=== PATIENT | female | born 1935 | race Caucasian/White ===

== ENCOUNTER → 2018-03-23 10:52 | Outpatient (CLI) | payer MEDICARE, SELFPAY ==
--- NOTE | 2018-03-23 11:00 | CDU_ITS ---
Reason For Study: bruit Rt. Velocities/BP Lt. Velocities/BP Prox CCA 69.2/11.1 cm/sec. Prox CCA 51.6/12.3 cm/sec. Mid CCA 58.6/10.6 cm/sec. Mid CCA 76.8/14.1 cm/sec. Dist CCA 62.1/12.9 cm/sec. Dist CCA 79.2/12.9 cm/sec. Prox ICA 53.4/11.7 cm/sec. Prox ICA 119/25.1 cm/sec. Mid ICA 60.4/14.7 cm/sec. Mid ICA 140/27.5 cm/sec. Dist ICA 92.6/21.7 cm/sec. Dist ICA 112/27.5 cm/sec. Rt. ICA/CCA = 1.6. Lt. ICA/CCA = 1.8. Prox ECA 158/16.2 cm/sec. Prox ECA 149/8.64 cm/sec. Rt. Vert. 54.5/12.3 cm/sec. Lt. Vert. 71.5/14.7 cm/sec. Right Extracranial There is heterogeneous, irregular atherosclerotic plaque noted in the right common carotid artery. There is heterogeneous, irregular atherosclerotic plaque noted in the right internal carotid artery. There is heterogeneous, irregular atherosclerotic plaque noted in the right external carotid artery. Antegrade flow is noted in the right vertebral artery. Left Extracranial There is heterogeneous, irregular atherosclerotic plaque noted in the left common carotid artery. There is heterogeneous, irregular atherosclerotic plaque noted in the left internal carotid artery. There is heterogeneous, irregular atherosclerotic plaque noted in the left external carotid artery. Antegrade flow is noted in the left vertebral artery. Procedure Carotid Duplex 22263. The exam was diagnostic. Exam performed in department. Interpretation Summary Mild (<50%) stenosis right extracranial internal carotid. Moderate (50-69%) stenosis left extracranial internal carotid. Flow within the vertebral arteries is antegrade bilaterally. Ordering Physician: Jose Luis Marie Performed By: Marvin Brannon RVT
== END ==
PROVIDERS: Family Provider Internal Medicine; PCP Internal Medicine; Visit Provider Surgery Vascular Surgery
DX: I70.213 Atherosclerosis of native arteries of extremities with intermittent claudication, bilateral legs (principal); I25.10 Atherosclerotic heart disease of native coronary artery without angina pectoris; E78.00 Pure hypercholesterolemia, unspecified; I10 Essential (primary) hypertension; R09.89 Other specified symptoms and signs involving the circulatory and respiratory systems
CPT/HCPCS: 93880

== ENCOUNTER → 2018-03-25 12:59 | Outpatient (CLI) | payer MEDICARE, SELFPAY ==
--- NOTE | 2018-04-01 11:20 | LEAS ---
Arterial Study - Arterial Study Arterial Study: Date of scan 03/25/[address] Marie History: Patient with bilateral lower extremity pain with walking and known hypertension hyperlipidemia coronary artery disease former tobacco smoker. Interpretation: Right lower extremity with adequate waveforms throughout the thigh calf ankle slightly peaked waveforms noted but waveform noted out through the digit segmental pressures maintained at the low thigh 0.98 decrease of the 0.699 at the ankle 0.56 and 0.58 in the posterior tib and dorsalis pedis. Both showing monophasic flow as well. Digit brachial index 0.21 Left lower extremity adequate waveform again from the low thigh down to the calf ankle in adequate waveform out through the digit. Waveforms are slightly peaked. Lower thigh pressure at 0.55 0.51 posterior tib and dorsalis pedis again with monophasic flow and an TULIO 0.570.59. Digital brachial index 0.20. Impression: 1. Moderate arterial occlusive disease right lower extremity with an TULIO 0.58 suggestive of femoral-popliteal occlusive disease. 2. Left lower extremity with moderate arterial occlusive disease with an TULIO 0.59 suggestive of either iliofemoral occlusive disease. 3. Bilateral small vessel disease with digit brachial index 0.21 and 0.20. Although the waveforms appear better than would have anticipated for this number.
== END ==
PROVIDERS: Family Provider Internal Medicine; PCP Internal Medicine; Visit Provider Surgery Vascular Surgery
DX: I70.213 Atherosclerosis of native arteries of extremities with intermittent claudication, bilateral legs (principal); I25.10 Atherosclerotic heart disease of native coronary artery without angina pectoris; I10 Essential (primary) hypertension; E11.9 Type 2 diabetes mellitus without complications; E78.00 Pure hypercholesterolemia, unspecified; R09.89 Other specified symptoms and signs involving the circulatory and respiratory systems; Z87.891 Personal history of nicotine dependence
CPT/HCPCS: 93923

== ENCOUNTER 2018-10-05 16:24 | Emergency (ER) | payer MEDICARE, SELFPAY ==
[2018-10-05 16:25] VITALS: BP 156/82; PULSE 85; RESP 16; TEMP 36.5; O2SAT 94; BMI 27.0
[2018-10-05 18:55] LABS: Absolute Lymphocyte Count 1.02 X10^3/ul (0.83-4.51); Absolute Neutrophil Count 7.5 X10^3/uL (2.0-7.7); Basophil# 0.02 X10^3/uL; Basophil% 0.2 % (0-1); Eosinophil# 0.03 X10^3/uL; Eosinophils% 0.3 % (0-5); Hemoglobin 11.8 g/dl (12.0-15.0); Lymphocyte # 1.02 X10^3/ul (4.0); Lymphocyte % 10.9 % (19-41); Mean Corp Hgb Conc 32.8 g/gl (32-36); Mean Corpuscular Volume 82.4 fL (81-99); Mean Platelet Vol. 9.2 fl (6.2-12.0); Monocyte# 0.82 X10^3/uL; Monocyte% 8.8 % (0-10); Neutrophil # 7.45 X10^3/uL (2.7-7.7); Neutrophil % 79.5 % (47-70); POSITIVE COUNT NO; POSITIVE DIFFERENTIAL NO; POSITIVE MORPHOLOGY NO; Platelet Count 261 K/mm3 (150-450); RBC Distribution Width CV 13.7 % (11.6-14.6); RBC Distribution Width SD 41.7 fl (35.1-43.9); Red Blood Count 4.37 M/mm3 (4.2-5.4); White Blood Count 9.4 K/mm3 (4.4-11.0)
[2018-10-05 18:59] LABS: International Normalized Ratio 0.9; Prothrombin Time (Protime)PT. 12.2 SECONDS (11.7-14.9)
[2018-10-05 19:10] LABS: Anion Gap 11 (5-15); BUN 11 mg/dL (7-18); BUN/Creat Ratio 12.5 RATIO (10-20); Chloride 92 mmol/L (98-107); Creatinine, Serum 0.88 mg/dL (0.55-1.02); EST Glomerular Filtration Rate 65 mL/min (>60); Est Glom Filt Rate - Afr Amer 79 mL/min (>60); Estimated Creatinine Clearance 47.29 ml/min; Glucose 97 mg/dL (74-106); Potassium 4.1 mmol/L (3.5-5.1); Sodium Level 125 mmol/L (136-145)
--- NOTE | 2018-10-05 19:34 | EKG12_ITS ---
Test Reason : NAUSEA/VOMITING Blood Pressure : / mmHG Vent. Rate : 087 BPM Atrial Rate : 087 BPM P-R Int : 136 ms QRS Dur : 070 ms QT Int : 366 ms P-R-T Axes : 056 039 064 degrees QTc Int : 440 ms Sinus rhythm with occasional Premature ventricular complexes Low voltage QRS (limb leads) Confirmed by SUJEY MOSQUEDA, LORENZO ([id number]), content editor LANDEN RYDER ([id number]) on 10/08/2018 1:40:29 PM Referred By: ROYA Confirmed By:LORENZO RM MD
--- NOTE | 2018-10-05 19:37 | ED.DCSUM_ITS ---
- ER Visit Summary Date of Service: 10/05/18 Chief Complaint: Nausea vomiting and diarrhea History of Present Illness: The patient is a 82 F history of CAD, [place], CHF, COPD, noncemented diabetes, renal insufficiency and cardiac stents. Patient states that she has had nausea vomiting and diarrhea since Friday. No fever. Just some mild cramping of her legs and abdomen. No dysuria. Decreased urinary output. Was seen in urgent care earlier today and then sent over to the ER. She also states she has had some intermittent chest pain last night but took nitro and it resolved. Currently no chest pain. Physical Examination: Vital signs are stable afebrile. Patient's no distress. HEENT exam really no significant dryness of her mucous membranes. Neck nontender. No JVD. No lymphadenopathy. Lungs clear to auscultation bilaterally. Heart regular rate and rhythm no murmur. Chest wall nontender. Abdomen soft. Nondistended. Normal bowel sounds no peritoneal signs. No hernias or masses. No signs of obstruction. Patient moving all 4 extremities. Calves are nontender without edema. Neurologically she is awake and alert without focal motor deficits. Test Results: CBC shows a white count of 9. Hemoglobin 11.8.. Which is her baseline. Electrolytes show sodium of 125. Gap of 11. Normal BUN and creatinine. Troponin is normal. Troponin is normal. Chest x-ray is no acute process. EKG sinus rhythm rate 87 with PVCs unchanged from prior. Urinalysis shows 10-25 white cells but otherwise no bacteria no nitrates. Culture was sent. Emergency Department Course and Treatment: Patient treated with 1 L normal saline. IV Zofran. At both 2130 and 2315. She has been able to hold down p.o. fluids. She is feeling better. She is comfortable being discharged home., Patient knows to return if worse. Treatment Plan: Plenty of fluids and rest. Increase diet slowly. Presents with the use of Zofran for nausea. Return if worse. Follow-up with your primary care physician for reevaluation. Disposition: Discharge Impression: Acute nausea, vomiting and diarrhea second viral gastroenteritis Mild hyponatremia. Chest pain uncertain etiology resolved This note was generated with [employer] dictation software. It may contain incorrect words, spelling, and punctuation that were not noted in review of the chart prior to signing ED Disposition - Plan for ED Patient: Chief Complaint: Nausea/Vomiting Referrals: Ady Ignacio MD [Primary Care Provider] -
--- NOTE | 2018-10-05 19:40 | RAD_ITS ---
STUDY: X-RAY CHEST REASON FOR EXAM: Female, 82 years old. UTI TECHNIQUE: Single frontal view COMPARISON: July 08, 2017 FINDINGS: The lungs are expanded. Minimal left basilar atelectasis. Cardiomegaly. Normal mediastinum and meka. Normal visualized pulmonary arteries. Calcified aortic arch and descending thoracic aorta. Normal visualized thoracic spine. Normal visualized ribs, clavicles, and shoulders. There is no demonstrated abnormality of the visualized soft tissue structures of the upper abdomen. RAD/Chest 1 View (Portable) IMPRESSION: Minimal left basilar atelectasis. Mild cardiomegaly. Electronically Signed: Antonio Millan DO at 20:08 EST Tel [phone], Service support ,
[2018-10-05] MEDS: 0.9% Normal Saline 1,000 ML 999 ML IV (19:43)
[2018-10-05 19:44] VITALS: BP 128/67; PULSE 71; RESP 15; O2SAT 95
[2018-10-05 21:20] LABS: Bacteria 0 SEEN /hpf (None Seen); Mucous, Urine 0 SEEN /hpf (<or=2+)
[2018-10-05 21:47] LABS: Color, Urine Straw (Yellow); Glucose, Dipstick Normal (Normal); Ketone-Dipstick 15 mg/dl (Negative); Leukocyte Esterase-Dipstick 500 /ul (Negative); Nitrite-Dipstick Negative (Negative); Occult Blood-Urine 10 /ul (Negative); Protein-Dipstick Negative (Negative); Specific Gravity, Urine 1.005 (1.002-1.030); Urine Bilirubin Dipstick Negative (Negative); Urine Clarity Cloudy (Clear); Urine Urobilinogen Normal (Normal); Urine pH 6.5 (5.0 - 8.0)
[2018-10-05 21:48] LABS: Red Blood Cells-Urine 0-5 SEEN /hpf (0-5); Squamous Epithelial Cells - UA 0-5 SEEN /hpf (5-10); White Blood Cells 10-25 SEEN /hpf (0-5)
--- NOTE | 2018-10-05 23:21 | ED.DEP ---
ED Disposition - Plan for ED Patient: Disposition: Home or Assisted Living Chief Complaint: Nausea/Vomiting Instructions: ED Gastroenteritis Viral Prescriptions: Ondansetron [Zofran Odt] 4 mg PO 4X/DAY PRN PRN #7 tab.rapdis PRN Reason: Nausea Referrals: Ady Ignacio MD [Primary Care Provider] - 3-5 Days Additional Instructions: Russell diet. Increase slowly as tolerated.. Take Zofran as needed for nausea Follow-up orthostatic with your primary care physician to be reevaluated later this week. Return if feeling worse.
[2018-10-05] MEDS: Ondansetron ODT 4 MG Tablet PO (23:44)
[2018-10-05 23:45] VITALS: BP 134/68; PULSE 59; RESP 16; O2SAT 95
== END 2018-10-05 23:46 | disposition home or self-care (01) ==
PROVIDERS: Emergency Provider Emergency Medicine; Family Provider Internal Medicine; PCP Internal Medicine
DX: A08.4 Viral intestinal infection, unspecified (principal); R11.2 Nausea with vomiting, unspecified; R19.7 Diarrhea, unspecified; E87.1 Hypo-osmolality and hyponatremia; R07.9 Chest pain, unspecified; I49.3 Ventricular premature depolarization; I25.10 Atherosclerotic heart disease of native coronary artery without angina pectoris; I25.2 Old myocardial infarction; I11.0 Hypertensive heart disease with heart failure; I50.9 Heart failure, unspecified; J44.9 Chronic obstructive pulmonary disease, unspecified; E11.9 Type 2 diabetes mellitus without complications; N28.9 Disorder of kidney and ureter, unspecified; Z95.5 Presence of coronary angioplasty implant and graft; Z90.49 Acquired absence of other specified parts of digestive tract; Z79.84 Long term (current) use of oral hypoglycemic drugs; Z79.02 Long term (current) use of antithrombotics/antiplatelets; Z79.899 Other long term (current) drug therapy
CPT/HCPCS: 71045; 80048; 81001; 84484; 85025; 85610; 87086; 87088; 87186; 93005; 96360; 96361; 99284; J7030

== ENCOUNTER 2019-02-04 17:39 | Emergency (ER) | payer MEDICARE, SELFPAY ==
[2019-02-04 17:41] VITALS: BP 145/68; PULSE 94; RESP 17; TEMP 36.7; O2SAT 92; BMI 26.1
--- NOTE | 2019-02-04 17:59 | CT_ITS ---
STUDY: CT CERVICAL SPINE WITHOUT CONTRAST REASON FOR EXAM: Female, 83 years old. Neck pain after falling. RADIATION DOSAGE (If Supplied By Facility): CTDIvol = ( 17.60 ) mGy, DLP = ( 331.27 ) mGycm TECHNIQUE: High resolution transaxial imaging was performed without contrast material. Sagittal and coronal images were reconstructed. Individualized dose optimization techniques were used for this CT. COMPARISON: Prior cervical CT exam of July 08, 2017 FINDINGS: Normal craniovertebral junction. Normal C1, C2 and odontoid alignment. Degenerative arthrosis of the atlantoaxial articulation. Negative for odontoid fracture. Incomplete ossification of the posterior arch of C1, normal variation. There is straightening of the normal cervical lordosis. Negative for acute fracture of the cervical spine. C2-3: Degenerative disc and joint changes without central stenosis or substantial foraminal narrowing. C3-4: Degenerative disc narrowing, uncovertebral arthrosis and advanced facet arthrosis on the left. Negative for central stenosis. Severe foraminal narrowing on the left C4-5: Degenerative disc narrowing, uncovertebral arthrosis and lateral facet arthrosis severe on the left. Negative for central stenosis. Bilateral mild to moderate foraminal narrowing. C5-6: Advanced disc narrowing and uncovertebral arthrosis. Bilateral mild facet arthrosis. Negative for central stenosis. Mild foraminal narrowing on the left moderate foraminal narrowing on the right. C6-7: Advanced disc narrowing and uncovertebral arthrosis. Negative for central stenosis. Moderate foraminal narrowing on the right. C7-T1: Mild disc narrowing. Slight degenerative anterolisthesis with facet arthrosis primarily on the right. Negative for central stenosis. Mild foraminal narrowing on the right. Atherosclerotic vascular calcifications. CT/Spine Cervical without Contras IMPRESSION: Straightening of the cervical spine with a minimal degenerative anterolisthesis of C7. Otherwise normal alignment of the cervical spine without fracture. Degenerative disc and joint changes as stated above. Electronically Signed: Valencia Moyer MD at 18:59 EDT , Service support ,
--- NOTE | 2019-02-04 17:59 | CT_ITS ---
STUDY: CT BRAIN WITHOUT CONTRAST REASON FOR EXAM: Female, 83 years old. Fall. RADIATION DOSAGE (If Supplied By Facility): CTDIvol = ( 44.99 ) mGy, DLP = ( 762.36 ) mGycm TECHNIQUE: Transaxial CT imaging of the brain was performed without administration of intravenous contrast material. Individualized dose optimization techniques were used for this CT. COMPARISON: 07/08/2017 FINDINGS: There is no definite acute abnormality. There is diffuse mild symmetric atrophy. There is atrophy of the posterior fossa structures. There is diffuse small vessel ischemic disease of the white matter. There are stable bilateral dystrophic calcifications of the basal ganglia. There is no definite acute infarct. There is no bleed. There is no gross mass, mass effect, or midline shift. There is no acute abnormality of the skull. No fractures. Grossly normal orbits. Grossly normal sinuses. CT/Brain/Head without Contrast IMPRESSION: Chronic age related changes and atrophy. No acute abnormality. Electronically Signed: Trent Engel MD at 18:53 EDT , Service support ,
[2019-02-04] MEDS: HYDROcodone Bitartrate/Apap 5/325 Tablet PO (18:09)
--- NOTE | 2019-02-04 18:11 | RAD_ITS ---
STUDY: X-RAY CHEST REASON FOR EXAM: Female, 83 years old. Pain after a fall. TECHNIQUE: Frontal and lateral views of the chest. COMPARISON: 10/05/2018 FINDINGS: The lungs are hyperexpanded. There are coarsened interstitial markings suggestive of moderate chronic fibrosis. No gross focal infiltrates. No gross effusions. There is borderline cardiomegaly. Normal mediastinum and meka. Normal visualized pulmonary arteries. There is atherosclerotic calcification of the aortic arch with tortuosity. There are diffuse degenerative changes of the visualized thoracic spine. Normal visualized ribs, clavicles, and shoulders. There is no demonstrated abnormality of the visualized soft tissue structures of the upper abdomen. RAD/Chest PA and Lateral IMPRESSION: Chronic pulmonary disease with fibrotic changes, stable. No acute abnormality. Electronically Signed: Trent Engel MD at 18:57 EDT , Service support ,
--- NOTE | 2019-02-04 18:30 | RAD_ITS ---
STUDY: X-RAY - PELVIS AND RIGHT HIP REASON FOR EXAM: Female, 83 years old. Right hip pain after fall. TECHNIQUE: 3 views of the pelvis and hip. COMPARISON: CTA abdominal aorta with bilateral lower extremity runoff February 21, 2016 FINDINGS: There is a non-specific bowel gas pattern. There are stable atherosclerotic vascular calcifications of the distal abdominal aorta and pelvic arteries. Again seen are degenerative changes of the visualized lower lumbar spine with 15 degree DEXA scoliosis centered at L4-5 Normal bilateral iliac wings, sacroiliac joints and visualized sacrum. Normal bilateral superior and inferior pubic rami. Normal pubic symphysis. Normal bilateral ischial tuberosities. Normal visualized femoral head. Teardrop shaped calcific density projecting at the lateral margin of the proximal femur near the level of the lesser trochanter was not apparent on the earlier CT, and may be superimposed artifact or calcification in the soft tissues. There is mild osteoarthritic spur formation of the acetabular rim. Normal hip joint. RAD/HIP, UNI W/ Pelvis 2-3 Views IMPRESSION: No acute fracture of the pelvis or right hip. Electronically Signed: Rosendo Latham MD at 19:52 EDT , Service support ,
--- NOTE | 2019-02-04 19:41 | ED.VISSUMM ---
- ER Visit Summary Date of Service: 02/04/19 Chief Complaint: Fall History of Present Illness: The patient is a 83 F with a fall earlier today. The patient went to sit back in the chair slipped out from under her. She hit her head but did not lose consciousness. She complains of head pain, right neck pain, and right hip pain. She does take Plavix. No other associated symptoms. Physical Examination: Afebrile and vital signs unremarkable. Patient has an abrasion to her right yazidism region. Otherwise HEENT exam unremarkable. Neck is tender over the right paraspinal muscles. Overlying skin appears normal. Heart regular. Lungs clear. Sternum is nontender with negative logroll. Neurovascular intact in all extremities. Test Results: CT brain, C-spine pending. Pelvis and hip x-rays pending. Emergency Department Course and Treatment: I have low suspicion for fracture or intracranial bleeding, but given her age, Plavix use, and symptoms, imaging was obtained. Patient was treated with [place] while awaiting results. Chest x-ray showed chronic changes. Hip x-ray was negative. CT cervical spine showed straightening and anterior listhesis of C7. Otherwise no acute issues. Patient will be discharged home for outpatient follow-up. Return for any new or worsening issues. Treatment Plan: As above Disposition: Discharge Impression: 1. Closed head injury 2. Cervical strain 3. Right hip contusion This note was generated with [employer] dictation software. It may contain incorrect words, spelling, and punctuation that were not noted in review of the chart prior to signing ED Disposition - Plan for ED Patient: Referrals: Ady Ignacio MD [Primary Care Provider] -
--- NOTE | 2019-02-04 20:40 | ED.DEP ---
ED Disposition - Plan for ED Patient: Instructions: ED Mechanical Fall Referrals: Ady Ignacio MD [Primary Care Provider] -
[2019-02-04 20:58] VITALS: BP 110/61; PULSE 76; RESP 16; O2SAT 98
== END 2019-02-04 21:00 | disposition home or self-care (01) ==
LOC: ED 18:09
PROVIDERS: Emergency Provider Emergency Medicine; Family Provider Internal Medicine; PCP Internal Medicine
DX: S00.01XA Abrasion of scalp, initial encounter (principal); S16.1XXA Strain of muscle, fascia and tendon at neck level, initial encounter; S70.01XA Contusion of right hip, initial encounter; W07.XXXA Fall from chair, initial encounter; Y93.89 Activity, other specified; Y92.9 Unspecified place or not applicable; I25.10 Atherosclerotic heart disease of native coronary artery without angina pectoris; I11.0 Hypertensive heart disease with heart failure; I50.9 Heart failure, unspecified; J44.9 Chronic obstructive pulmonary disease, unspecified; E11.9 Type 2 diabetes mellitus without complications; Z79.01 Long term (current) use of anticoagulants; Z79.84 Long term (current) use of oral hypoglycemic drugs; Z79.899 Other long term (current) drug therapy; Z87.891 Personal history of nicotine dependence
CPT/HCPCS: 70450; 71046; 72125; 73502; 99283

== ENCOUNTER → 2019-02-10 17:32 | Outpatient (CLI) | payer MEDICARE, SELFPAY ==
[2019-02-04 17:41] VITALS: BMI 26.1
== END ==
PROVIDERS: Family Provider Internal Medicine; PCP Internal Medicine; Referring Provider Otolaryngology Otolaryngology/Facial Plastic Surgery; Visit Provider Otolaryngology Otolaryngology/Facial Plastic Surgery
DX: J02.9 Acute pharyngitis, unspecified (principal)
CPT/HCPCS: 87070

== ENCOUNTER → 2019-04-09 09:00 | Outpatient (CLI) | payer MEDICARE, SELFPAY ==
[2019-04-08 15:13] VITALS: BMI 28.5
[2019-04-09 10:06] LABS: Absolute Lymphocyte Count 1.63 X10^3/ul (0.83-4.51); Basophil# 0.03 X10^3/uL; Basophil% 0.3 % (0-1); Eosinophil# 0.18 X10^3/uL; Eosinophils% 1.7 % (0-5); Hematocrit 38.8 % (37-47); Hemoglobin 11.8 g/dl (12.0-15.0); Lymphocyte # 1.63 X10^3/ul (4.0); Lymphocyte % 15.4 % (19-41); Mean Corp Hgb Conc 30.4 g/gl (32-36); Mean Corpuscular Hgb 25.8 pg (27.0-32.0); Mean Corpuscular Volume 84.9 fL (81-99); Mean Platelet Vol. 10.3 fl (6.2-12.0); Monocyte# 0.73 X10^3/uL; Monocyte% 6.9 % (0-10); Neutrophil # 7.98 X10^3/uL (2.7-7.7); Neutrophil % 75.5 % (47-70); Platelet Count 302 K/mm3 (150-450); RBC Distribution Width CV 15.8 % (11.6-14.6); RBC Distribution Width SD 48.4 fl (35.1-43.9); Red Blood Count 4.57 M/mm3 (4.2-5.4); White Blood Count 10.6 K/mm3 (4.4-11.0)
[2019-04-09 10:10] LABS: POSITIVE COUNT NO; POSITIVE DIFFERENTIAL NO; POSITIVE MORPHOLOGY NO
[2019-04-09 10:43] LABS: Anion Gap 4 (5-15); BUN 19 mg/dL (7-18); BUN/Creat Ratio 17.3 RATIO (10-20); Calcium,Total 9.1 mg/dL (8.5-10.1); Chloride 110 mmol/L (98-107); EST Glomerular Filtration Rate 50 mL/min (>60); Est Glom Filt Rate - Afr Amer 61 mL/min (>60); Glucose 87 mg/dL (74-106); Potassium 5.8 mmol/L (3.5-5.1); Sodium Level 141 mmol/L (136-145); T4 Total, Thyroxin 10.1 ug/dL (4.8-13.9); Thyroid Stim Hormone (TSH) 1.19 uIU/mL (0.358-3.74)
== END ==
PROVIDERS: Family Provider Internal Medicine; PCP Internal Medicine; Referring Provider Internal Medicine Cardiovascular Disease; Visit Provider Internal Medicine Cardiovascular Disease
DX: R60.9 Edema, unspecified (principal); I25.10 Atherosclerotic heart disease of native coronary artery without angina pectoris; I25.5 Ischemic cardiomyopathy; I11.0 Hypertensive heart disease with heart failure; I50.9 Heart failure, unspecified; E78.2 Mixed hyperlipidemia; Z98.61 Coronary angioplasty status
CPT/HCPCS: 36415; 80048; 84436; 84443; 85025

== ENCOUNTER → 2019-04-12 08:05 | Outpatient (CLI) | payer MEDICARE, SELFPAY ==
[2019-04-08 15:13] VITALS: BMI 28.5
[2019-04-12 09:05] LABS: Anion Gap 5 (5-15); BUN 27 mg/dL (7-18); BUN/Creat Ratio 20.1 RATIO (10-20); Calcium,Total 8.6 mg/dL (8.5-10.1); Chloride 108 mmol/L (98-107); Creatinine, Serum 1.34 mg/dL (0.55-1.02); EST Glomerular Filtration Rate 40 mL/min (>60); Est Glom Filt Rate - Afr Amer 49 mL/min (>60); Glucose 116 mg/dL (74-106); Potassium 4.5 mmol/L (3.5-5.1); Sodium Level 140 mmol/L (136-145)
== END ==
PROVIDERS: Family Provider Internal Medicine; PCP Internal Medicine; Referring Provider Internal Medicine Cardiovascular Disease; Visit Provider Internal Medicine Cardiovascular Disease
DX: I25.10 Atherosclerotic heart disease of native coronary artery without angina pectoris (principal); I25.5 Ischemic cardiomyopathy; I10 Essential (primary) hypertension
CPT/HCPCS: 36415; 80048

== ENCOUNTER → 2019-04-30 06:58 | Outpatient (CLI) | payer MEDICARE, SELFPAY ==
[2019-04-08 15:13] VITALS: BMI 28.5
--- NOTE | 2019-04-30 07:02 | ECHOD_ITS ---
Reason For Study: Chest pain Procedure This was a 2D Doppler, Color Flow transthoracic echocardiogram. The exam was of adequate technical quality. Exam performed in department. Left Ventricle Normal LV size. Left ventricular systolic function is normal. The estimated ejection fraction is 65 %. Diastolic function is indeterminate. No regional wall motion abnormalities noted. Right Ventricle Normal RV size. Normal systolic function. Atria The left atrium is mildly enlarged. Normal right atrium. No doppler evidence for ASD. Mitral Valve There is no mitral annular calcification. Normal mitral valve. Mild (1+) mitral valve insufficiency. Tricuspid Valve Normal tricuspid valve. Mild eccentric tricuspid valve insufficiency. Right ventricular systolic pressure estimated to be 47 mmHg. Aortic Valve Trisinus/trileaflet aortic valve. Normal aortic valve. Pulmonic Valve The pulmonic valve is not well visualized. Trivial pulmonic valve insufficiency. Great Vessels Normal sized aortic root. Pericardium/Pleural No pericardial effusion. MMode/2D Measurements & Calculations LVIDd: 4.2 cm IVSd: 1.1 cm Ao root diam: 2.8 cm LVIDs: 2.4 cm LVPWd: 1.1 cm RVDd: 3.1 cm FS: 42.6 % LAV(MOD-bp): 43.5 ml LA A4 area: 19.1 cm2 LA dimension(2D): 4.0 cm LAV(MOD-bp) Indexed: 28.6 ml/m2 LAV(MOD-sp2): 29.8 ml LAV(MOD-sp4): 51.4 ml RA A4 area: 13.4 cm2 Doppler Measurements & Calculations MV E max marco: 78.6 cm/sec Lat Peak E' Marco: 6.5 cm/sec Med Peak E' Marco: 6.5 cm/sec MV A max marco: 85.4 cm/sec E/E' lat: 12.2 E/E' med: 12.2 MV E/A: 0.92 Ao V2 max: 131.2 cm/sec LV V1 max: 110.4 cm/sec PA V2 max: 109.8 cm/sec Ao max P.9 mmHg LV V1 max P.9 mmHg TR max marco: 333.2 cm/sec TR max P.4 mmHg Interpretation Summary Left ventricular systolic function is normal. The estimated ejection fraction is 65 %. The left atrium is mildly enlarged. Mild (1+) mitral valve insufficiency. Mild eccentric tricuspid valve insufficiency. Trivial pulmonic valve insufficiency. Right ventricular systolic pressure estimated to be 47 mmHg. Diastolic function is indeterminate. Ordering Physician: Peter Dowling Referring Physician: Ady Ignacio M.D. Performed By: Lisa Chavez RDCS
--- NOTE | 2019-04-30 09:34 | STRESSREP ---
Stress Test Report Date: 04-30-19 Procedure: Pharmacologic stress nuclear imaging study Indications: Chest pain; CAD; PCI by: Cardiomyopathy; CHF Consent: Per the patient Procedure: The patient underwent pharmacologic (Regadenoson) evaluation with a peak heart rate of 93 beats per minute (67 %predicted maximal heart rate) and a peak blood pressure of 118/60 mmHg. The baseline ECG demonstrated sinus rhythm; PACs. The peak pharmacologic ECG demonstrated no obvious ECG changes. There were occasional PACs pretest, during infusion, and recovery. There was no complaint of chest discomfort during pharmacologic infusion or recovery. The examination was discontinued secondary to completion of protocol. Impression: 1. Pharmacologic (Regadenoson) evaluation 2. Peak pharmacologic ECG with no obvious ECG changes. 3. There were occasional PACs pretest, during pharmacologic infusion, in recovery. 4. Nuclear images pending Myocardial perfusion imaging study: Technique: The patient was injected with 11.5 millicuries of technetium 99m Cardiolite and subsequently rest SPECT Cardiolite nuclear imaging was obtained in the horizontal long, vertical long, and short axis views. The patient underwent pharmacologic (Regadenoson) evaluation with a peak heart rate of 93 beats per minute (67 % percent predicted maximal heart rate) and a peak blood pressure of 118/60 mmHg. The patient was injected with 33.1 millicuries of technetium 99m Cardiolite and subsequently stress SPECT Cardiolite nuclear imaging was obtained in the horizontal long, vertical long, and short axis views. A gated Cardiolite study at peak stress was obtained. Interpretation: Rest and stress SPECT Cardiolite nuclear imaging status post realignment, normalization, and attenuation correction demonstrate relative uniform tracer uptake and myocardial perfusion appearing within normal limits. There is end systolic thickening and brightening. The gated Cardiolite study demonstrates myocardial thickening and inward wall motion. The reported LVEF is 91 %. Impression: 1. Rest and stress SPECT Cardiolite nuclear imaging demonstrate relative uniform tracer uptake and myocardial perfusion appearing within normal limits. 2. The gated Cardiolite study reports an LVEF of 91 %. This note was generated with [employer] software. It may contain incorrect words, spelling, and punctuation that were not noted in checking the note before signing.
== END ==
PROVIDERS: Family Provider Internal Medicine; PCP Internal Medicine; Referring Provider Internal Medicine Cardiovascular Disease; Visit Provider Internal Medicine Cardiovascular Disease
DX: I25.10 Atherosclerotic heart disease of native coronary artery without angina pectoris (principal); I25.5 Ischemic cardiomyopathy; I11.0 Hypertensive heart disease with heart failure; I50.9 Heart failure, unspecified; E78.2 Mixed hyperlipidemia; R60.9 Edema, unspecified; R07.9 Chest pain, unspecified; Z98.61 Coronary angioplasty status
CPT/HCPCS: 78452; 93017; 93306; A9500; A4216; J2785

== ENCOUNTER → 2020-03-17 08:54 | Outpatient (CLI) | payer MEDICARE, SELFPAY ==
[2019-10-14 10:03] VITALS: BMI 28.5
--- NOTE | 2020-03-17 09:01 | CDU_ITS ---
Reason For Study: Carotid stenosis Rt. Velocities/BP Lt. Velocities/BP Prox CCA 76/8.2 cm/sec. Prox CCA 63/10.2 cm/sec. Mid CCA 64/8 cm/sec. Mid CCA 87.1/13.5 cm/sec. Dist CCA 59.7/10.2 cm/sec. Dist CCA 103.5/13.9 cm/sec. Prox ICA 60.5/7.7 cm/sec. Prox ICA 178.4/27 cm/sec. Mid ICA 64.2/10.2 cm/sec. Mid ICA 137.5/20.6 cm/sec. Dist ICA 98.6/11.4 cm/sec. Dist ICA 84.6/17 cm/sec. Rt. ICA/CCA = 1.5. Lt. ICA/CCA = 2.05. Prox ECA 246.7 cm/sec. Prox ECA 259.5 cm/sec. Rt. Vert. 66.7/9 cm/sec. Lt. Vert. 48.2/9 cm/sec. Right Extracranial There is heterogeneous, irregular atherosclerotic plaque noted in the right common carotid artery. There is heterogeneous, irregular atherosclerotic plaque noted in the right internal carotid artery. There is heterogeneous, irregular atherosclerotic plaque noted in the right external carotid artery. The atherosclerotic plaque causes acoustic shadowing. Antegrade flow is noted in the right vertebral artery. Left Extracranial There is heterogeneous, irregular atherosclerotic plaque noted in the left common carotid artery. There is heterogeneous, irregular atherosclerotic plaque noted in the left internal carotid artery. The atherosclerotic plaque causes acoustic shadowing. There is heterogeneous, irregular atherosclerotic plaque noted in the left external carotid artery. Antegrade flow is noted in the left vertebral artery. Procedure Carotid Duplex [id number]. Exam performed in department. Interpretation Summary Mild (<50%) stenosis right extracranial internal carotid. Moderate (50-69%) stenosis left extracranial internal carotid. Flow within the vertebral arteries is antegrade bilaterally. Ordering Physician: Jose Luis Marie Referring Physician: Ady Ignacio M.D. Performed By: Chen Woody RVT
== END ==
PROVIDERS: PCP Internal Medicine; Referring Provider Surgery Vascular Surgery; Visit Provider Surgery Vascular Surgery
DX: I65.23 Occlusion and stenosis of bilateral carotid arteries (principal)
CPT/HCPCS: 93880

== ENCOUNTER 2020-05-16 10:51 | Day surgery (SDC) | payer MEDICARE, SELFPAY ==
[2019-10-14 10:03] VITALS: BMI 28.5
[2020-05-14 13:06] LABS: Probe Check PASS; Specimen Processing Control PASS
--- NOTE | 2020-05-15 13:06 | PCM.HP.BLA ---
History and Physical Date of Admission: 05/16/20 History and Physical Date of Admission: 05/16/20 Hazel García 1935 ? ? REFERRING PHYSICIAN: Emilie Corral MD ? CHIEF COMPLAINT: Consult (Consult solonoscopy- anemia) ? HPI: The patient is a 84 year old female presents with complaint of abdominal pain, nausea, weight loss, and anemia. She is referred for consideration of endoscopy. She has had nausea and emesis. Denies hematemesis. Has decreased appetite and has lost about 12# over unknown period of time. This has been going on for about 8 months. Daughter notes that patient usually has good appetite, but lately does not for the past 8 months Notes occasional blood in stools. Has had a few episodes of abdominal pain - upper - that cuased her to double over due to pain She is presently on prevacid and has been for years. She thinks she had a colonoscopy about 5 years ago. She has a sister who had colon cancer in her 60s or 70s. The patient herself has a history of colon polyps in the remote past. She is presently on blood thinners for her cardiac stents. Her last hemoglobin was noted to be 9.7. She also had previous capsule endoscopy of small bowel 2014 - [place] ? ? PAST MEDICAL HISTORY ? Arrhythmia ? ? BENIGN NEOPLASM LG BOWEL 08/21/2007 ? Adenomatous polyp removed from Sigmoid in 1992 Colonoscopy 06-15-07 (sister with colon ca): left sided tics with no polyps or masses ? CHF (congestive heart failure) ([facility]) ? ? Chronic airway obstruction, not elsewhere classified ? ? CKD (chronic kidney disease) stage 3, GFR 30-59 ml/min ([facility]) 08/27/2017 ? Closed Colles' fracture of left radius 02/27/2017 ? Coronary artery disease ? ? Diverticulosis of colon (without mention of hemorrhage) ? ? DM Neuro Manif Type II 03/20/2010 ? Esophageal reflux 08/21/2007 ? Hallux valgus (acquired) 03/20/2010 ? MACULAR DEGENERATION NOS 11/24/2007 ? [facility] 10-21-07: L eye with s/p cataract extraction-stable Galvin 2: L eye YAG capsulotomy after cataract extraction 11-23-07, 20/40 R, count fingers L ? Oropharyngeal dysphagia 09/13/2015 ? Honey thickened liquids. ? Osteopenia ? ? Osteopenia of multiple sites (Clinical osteoporosis) 03/11/2017 ? Other and unspecified hyperlipidemia ? ? Other psoriasis and similar disorders ? ? Psoriasis ? PAD (peripheral artery disease) (HCC) both lower extremities. 06/02/2018 ? Dr. Jose Luis Marie, Vascular Surgery ? 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 Restless legs syndrome (RLS) 08/21/2007 ? Tobacco use disorder 07/27/2008 ? Quit tobacco about age 63: about a 30 pack year (started about 1970 and quit about 1999) UA negative for blood in 07-11, 03-11 ? Type II or unspecified type diabetes mellitus without mention of complication, not stated as uncontrolled ? ? Unspecified essential hypertension ? ? PAST SURGICAL HISTORY ? BX BREAST PERC VACUUM/ROTN ? 05/09/10 ? Left ? CC CORONARY STENT ? 08/07/2014 ? Stents x 2 ? CC CORONARY STENT ? 2003 ? Stent x 1 ? COLONOSCOP W/ OR W/O BRSH SPEC ? 09/06/2002 ? Colonoscopy ? COLONOSCOP W/ OR W/O BRSH SPEC ? 06/15/2007 ? Colonoscopy ? COLONOSCOP W/ OR W/O BRSH SPEC ? 11/26/2013 ? Colonoscopy ? COLONOSCOP W/ OR W/O BRSH SPEC ? 12/01/14 ? Colonoscopy ? COLONOSCOP W/ OR W/O BRSH SPEC ? 03/16/2015 ? Colonoscopy ? EGD W/O OR W/BRUSH/WASH ? 04/15/2001 ? EGD ? EGD W/O OR W/BRUSH/WASH ? 10/28/14 [facility] LIGATE FALLOPIAN TUBE ? 1967 ? Tubal ligation ? REMOVAL GALLBLADDER ? 1983 ? Cholecystectomy ? REMOVAL OF TONSILS,<12 Y/O ? 1941 ? Tonsillectomy ? REMV CATARACT EXTRACAP,INSERT LENS ? x 2 right and left ? Cataract Removal ? TOTAL ABDOM HYSTERECTOMY ? 1977 ? Hysterectomy, HUE, BSO, appendectomy ? ? Current Outpatient Medications ? peg 3350-Electrolytes (GOLYTELY) 236-22.74-6.74 -5.86 gram suspension Take 4,000 mL by mouth one time only for 1 dose. Refer to printed prep instructions from your doctor. ? lisinopril (ZESTRIL, PRINIVIL) 10 mg tablet Take 1 tablet by mouth twice daily. (Patient taking differently: Take 10 mg by mouth once daily. ) ? guaiFENesin (MUCINEX) 600 mg 12 hr tablet Take 1 tablet by mouth twice daily. ? blood sugar diagnostic (Mr. NumberUCH ULTRA TEST) test strip Test blood sugar twice daily Dx. Code: E11.40 ? atorvastatin (LIPITOR) 40 mg tablet Take 1 tablet by mouth once daily. ? cephALEXin (KEFLEX) 500 mg capsule Take 1 capsule by mouth twice daily. ? clopidogrel (PLAVIX) 75 mg tablet Take 1 tablet by mouth once daily. ? mometasone-formoterol (DULERA) 200-5 mcg/actuation inhaler Inhale 1 Puff as instructed twice daily. ? lansoprazole (PREVACID) 30 mg capsule Take 1 capsule by mouth once daily. ? amLODIPine (NORVASC) 5 mg tablet Take 1 tablet by mouth twice daily. ? albuterol HFA (VENTOLIN HFA) 90 mcg/actuation inhaler Inhale 2 Puffs as instructed four times daily as needed. ? ferrous sulfate 325 mg (65 mg iron) tablet Take 1 tablet by mouth daily with breakfast. ? tiotropium (SPIRIVA RESPIMAT) 2.5 mcg/actuation inhaler Inhale 2 Puffs as instructed once daily. ? sodium chloride (AYR, OCEAN) 0.65 % nasal spray Use 2 Sprays in the nose twice daily. ? metoprolol tartrate, short acting, (LOPRESSOR) 50 mg tablet Take 2 tablets by mouth twice daily. ? nitroglycerin sublingual (NITROSTAT) 0.4 mg SL tablet Dissolve 1 tablet under the tongue as needed. DISSOLVE ON TONGUE FOR CHEST PAIN. IF NO PAIN RELIEF, CALL 911 (Patient to call when needs) ? Compression Knee Highs KNEE HIGH COMPRESSION STOCKINGS 20-30 MM HG. DX: EDEMA ? Lancets lancets Test blood sugar(s) once times daily. Dx: E11.49 Insulin: No ? aspirin, enteric coated (ASPIRIN, ENTERIC COATED) 81 mg EC tablet Take 81 mg by mouth once daily. ? VIT C/MCKENNA AC/LUT/COPPER/ZNOX (PRESERVISION ORAL) Take by mouth twice daily. ? Tigbyetfoajed-Zwowiyhg-Zlmeah (CENTRUM SILVER) ORAL Tab Take 1 tablet by mouth once daily. ? calcium carbonate/vitamin d3(CALCIUM 600 + D(3) 600 MG (1,500)-200 UNIT TAB) Take one(1) tablet twice daily. ? ? ALLERGIES: Aspirin; Iodine; Lyrica [Pregabalin]; Nabumetone; Proair Hfa [Albuterol Sulfate]; Tylenol [Acetaminophen] ? PERSONAL HISTORY: Social History ?Tobacco Use ? Smoking status: Former Smoker ? ? Packs/day: 1.30 ? ? Years: 45.00 ? ? Pack years: 58.50 ? ? Types: Cigarettes ? ? Start date: 11/03/1968 ? ? Last attempt to quit: 11/03/1999 ? ? Years since quittin.5 ? Smokeless tobacco: Never Used Substance Use Topics ? Alcohol use: No ? Drug use: No ? FAMILY HISTORY ? Emphysema Mother ? ? [place] ? Cancer Mother ? ? Lung ? Emphysema Father ? ? Alzheimer's Disease Sister ? ? Alzheimer's Disease Sister ? ? GI Sister ? ? pancreatitis ? Colon Cancer Sister ? ? Cancer Brother ? ? Lung in 2 brothers ? COPD Sister ? ? Emphysema ? Diabetes Son ? ? other (congestive heart failure) Son ? ? ? REVIEW OF SYSTEMS: General - complains of increased tiredness, denies fevers, has weight loss as above, has decreased appetite Cardiovascular - denies chest pain, has cardiac history with placement of stents Pulmonary - feels short of breath with exertion, denies coughing up blood Gastrointestinal - see HPI Neurological - denies seizures Genitourinary - denies burning with urination, denies blood in urine Hematological - has easy bruising, on antiplatelet medication Skin - bruises easily- has thin skin Musculoskeletal - has back pain Endocrine - has diabetes, feels cold all the time, no thyroid problems Psychological ? denies hallucinations ? PHYSICAL EXAMINATION: General: The patient is 84 year old female, well nourished, well hydrated in no acute distress. The patient is oriented to time, place, and person. VITALS: Pulse 75, temperature 37 ?C (98.6 ?F), temperature source Temporal Artery, weight 56.8 kg (125 lb 3.2 oz), SpO2 96 %. Body mass index is 25.29 kg/m?. Head ? Normocephalic. EOM intact with sclera clear and no icterus noted. Mouth with mucus membranes moist. Neck - supple with no jugular venous distention noted. Trachea is midline. Lungs ? clear to auscultation. Normal breath sounds. No rales/rhonchi/wheezing noted. No labored breathing noted, such as retractions. No cough heard. Heart ? normal heart sounds. No rubs/clicks/murmurs noted. Regular rate. Abdomen ? soft and benign. Normal bowel sounds. No abdominal bruits noted.. Extremities ? no calf tenderness noted. No pitting edema noted. Skin ? bruises noted, otherwise normal skin integrity. Neurological ? gait normal, no focal deficits noted. Psych ? calm and appropriate ? ? IMPRESSION: anemia, weight loss, abdominal pain, see above ? PLAN: I have discussed the above with the patient. She is here with her daughter. I have offered upper and lower endoscopy for evaluation of abdominal pain/anemia/weight loss, etc I have explained the procedures to the patient. I have counseled the patient as to the risks of the procedure, including but not limited to: infection, bleeding, perforation of the GI tract, injury to any intraabdominal organs such as the liver/spleen, inability to complete the procedure, complications of anesthesia, etc. ? the patient understands. The patient wishes to proceed. She states that she will not be able to drink the colon cleansing solution, I have told her that she can do a clear liquid diet over two days and divide the solution in half to take each of those days. She has CKD and a magcitrate prep that she had in the past may cause KELLEY. I have also counseled patient that given the present COVID crisis, she would be at risk for COVID and potential for complications given this procedure, though the risks are low. She understands and wishes to proceed. I have answered all questions to the patient?s satisfaction and the patient has no further questions. . Diagnoses: (D64.9) Anemia, unspecified type (primary encounter diagnosis) (R10.11, R10.12) Bilateral upper abdominal pain (K92.1) Hematochezia Return to Clinic: The patient is instructed to follow-up with me after the procedure. ? Susan Kwon MD
[2020-05-16] VITALS (7 sets, daily range): BP systolic 91–117; BP diastolic 45–83; PULSE 77–100; RESP 16; TEMP 36.1–36.4; O2SAT 92–97; BMI 26.8
[2020-05-16] MEDS: Lactated Ringers 1,000 ML 100 ML IV (11:38)
[2020-05-16 11:46] LABS: Bedside Glucose 88 mg/dL (70-110)
--- NOTE | 2020-05-16 12:00 | EGD_PTH ---
PATIENT: KYLE ARROYO LOC: EN U#:[id number] AGE/SX: 84/F ROOM: RE05/16/[address]: Dr. Susan Kwon MD : 1935 BED: DIS: 05/16/2020 SPEC #: [id number] RECD: 05/16/20 14:07 STATUS: NICHOLE ULISSES #: [id number] TITI: 05/16/20 12:[address]: Susan Kwon DEPT: SURGICAL PATHOLOGY RECD BY: Kiet Crooks ENTERED: 05/17/20 11:31 SP TYPE: EGD BIOPSY PUSHPA DR: Dr. Ady Ignacio MD Tissues: A - Gastric mucous membrane B - Gastric mucous membrane Procedures: Surgery Specimen Level IV HEADER OPERATION: Colonoscopy, EGD [place] PRE-OP DIAGNOSIS: Anemia, weight loss TISSUE SUBMITTED: A - Antrum biopsy for histo and H. pylori, B - Hepatic flexure polyp biopsy MICROSCOPIC DIAGNOSIS A. Antrum biopsy: Mild gastritis. See microscopic description and comment. B. Hepatic flexure polyp, biopsy: Fragments of tubular adenoma. WENDI:tiffany 05/18/20 COMMENT A. The results of immunohistochemistry for Helicobacter pylori will be reported separately ([id number]). MICROSCOPIC DESCRIPTION Slides are reviewed. A. The specimen shows fragments of gastric mucosa with chronic inflammatory cell infiltrates in the lamina propria consisting of lymphocytes and plasma cells, consistent with mild chronic gastritis. Focal mucosal congestion and hemorrhage are also noted. GROSS DESCRIPTION A - Received in fixative is one container labeled with the patient's name and designated antrum biopsy. The specimen consists of two irregular fragments of light grewal soft tissue that in aggregate measure 0.4 x 0.3 x 0.1 cm. The specimen is totally submitted in one cassette. B - Received in fixative is one container labeled with the patient's name and designated hepatic flexure polyp biopsy. The specimen consists of three irregular fragments of light grewal soft tissue that in aggregate measure 1 x 0.2 x 0.1 cm. The specimen is totally submitted in one cassette. / WENDI:tiffany 05/17/20 TC:1 CPT: 28555 x2
--- NOTE | 2020-05-16 12:00 | IMM_PTH ---
PATIENT: KYLE ARROYO LOC: EN U#:[id number] AGE/SX: 84/F ROOM: RE05/16/[address]: Dr. Susan Kwon MD : 1935 BED: DIS: 05/16/2020 SPEC #: [id number] RECD: 05/17/20 10:00 STATUS: NICHOLE REQ #: [id number] TITI: 05/16/20 12:[address]: Susan Kwon DEPT: IMMUNOHISTOCHEMISTRY RECD BY: Lori Olson ENTERED: 05/17/20 10:00 SP TYPE: IMMUNO OTHR DR: Dr. Ady Ignacio MD Tissues: A - Stomach, NOS Procedures: H Pylori (initial) PHYSICIAN & INSTITUTION [place] [id number] SPECIMEN INFORMATION: Tissue Source: A - Antrum biopsy Clinical Info: Anemia, weight loss Specimen Number: [id number] CPT code: 94182 METHODOLOGY: Deparaffinized sections of prefer/formalin-fixed tissue or PAP/DQ stained slides are incubated with monoclonal/polyclonal antibodies/oligonucleotide probes. Localization is made via biotin free immunoperoxidase method. Appropriate controls are performed and reacted as expected. Results on target cell population are indicated in the following table: RESULTS: ANTIBODY / CLONE RESULT Block A H Pylori (polyclonal) negative These tests were developed and their performance characteristics determined by [facility]. They may not have been cleared or approved by the U.S. Food and Drug Administration. The FDA has determined that such clearance or approval is not necessary. INTERPRETATION: A. Antrum biopsy: Negative for Helicobacter pylori organisms. SJ:tiffany 05/18/20
--- NOTE | 2020-05-16 13:47 | OP.EGD_ITS ---
Patient Name: Hazel García Procedure Date: 05/16/2020 1:07 PM Date of : 1935 Age: 84 Procedure: Upper GI endoscopy Indications: Generalized abdominal pain, Iron deficiency anemia Providers: Susan Kwon MD Referring MD: Ady Ignacio Medicines: See the Anesthesia note for documentation of the administered medications Patient Profile: Refer to note in patient chart for documentation of history and physical. Complications: No immediate complications. Procedure: Pre-Anesthesia Assessment: - see anesthesia note After obtaining informed consent, the endoscope was passed under direct vision. Throughout the procedure, the patient's blood pressure, pulse, and oxygen saturations were monitored continuously. The gastroscope was introduced through the mouth, and advanced to the second part of duodenum. The upper GI endoscopy was accomplished without difficulty. The patient tolerated the procedure well. Scope In: 1:14:37 PM Scope Out: 1:19:49 PM Total Procedure Duration Time 0 hours 5 minutes 12 seconds Findings: The first portion of the duodenum and second portion of the duodenum were normal. Minimal inflammation was found in the gastric antrum, enterogastric reflux of bile was noted, this is probable bile gastritis. Biopsies were taken with a cold forceps for histology. Verification of patient identification for the specimen was done by the nurse. Estimated blood loss was minimal. The examined esophagus was normal - no evidence of hiatal hernia or reflux noted Impression: - Normal first portion of the duodenum and second portion of the duodenum. - Gastritis. Biopsied. - Normal esophagus. Recommendation: - Discharge patient to home (ambulatory). - Resume previous diet. - Continue present medications. - Await pathology results. - A virtual visit will be set up with patient with Jennifer Arellano PA-C for discussion fo pathology results. Procedure Code(s): --- Professional --- 76724, Esophagogastroduodenoscopy, flexible, transoral; with biopsy, single or multiple Diagnosis Code(s): --- Professional --- K29.70, Gastritis, unspecified, without bleeding R10.84, Generalized abdominal pain D50.9, Iron deficiency anemia, unspecified CPT copyright 2017 [employer]. All rights reserved. The codes documented in this report are preliminary and upon license registration examiner review may be revised to meet current compliance requirements. MD Susan Farr MD 05/16/2020 1:47:11 PM This report has been signed electronically. Number of Addenda: 0 Note Initiated On: 05/16/2020 1:07 PM
--- NOTE | 2020-05-16 13:47 | OP.CCLET_ITS ---
05/16/2020 Ady Ignacio [address] [place] [address] Re : Upper GI endoscopy procedure for Hazel García Dear Dr. Ignacio This procedure was performed on Saturday, May 16, 2020. My impressions and recommendations are as follows: Impressions : - Normal first portion of the duodenum and second portion of the duodenum. - Gastritis. Biopsied. - Normal esophagus. Recommendations : - Discharge patient to home (ambulatory). - Resume previous diet. - Continue present medications. - Await pathology results. - A virtual visit will be set up with patient with Jennifer Arellano PA-C for discussion fo pathology results. My findings are described in the full procedure note, which is enclosed. If I can be of further assistance, please feel free to contact me at Doctor phone number(s): , Work: . Sincerely, MD Susan Farr MD 05/16/2020 1:47:11 PM This report has been signed electronically.
--- NOTE | 2020-05-16 13:53 | OP.COLON_ITS ---
Patient Name: Hazel García Procedure Date: 05/16/2020 1:20 PM Date of : 1935 Age: 84 Procedure: Colonoscopy Indications: Generalized abdominal pain, Iron deficiency anemia Providers: Susan Kwon MD Referring MD: Ady Ignacio Medicines: See the Anesthesia note for documentation of the administered medications Patient Profile: Refer to note in patient chart for documentation of history and physical. Last Colonoscopy: 5 years ago. Complications: No immediate complications. Procedure: Pre-Anesthesia Assessment: - see anesthesia note After I obtained informed consent, the scope was passed under direct vision. Throughout the procedure, the patient's blood pressure, pulse, and oxygen saturations were monitored continuously. The Colonoscope was introduced through the anus and advanced to the cecum, identified by the appendiceal orifice, ileocecal valve and palpation. The colonoscopy was performed without difficulty. The patient tolerated the procedure well. The quality of the bowel preparation was adequate to identify polyps 6 mm and larger in size. Scope In: 1:22:30 PM Scope Withdrawal Time 0 hours 8 minutes 24 seconds Scope Out: 1:41:46 PM Total Procedure Duration Time 0 hours 19 minutes 16 seconds Findings: The perianal and digital rectal examinations were normal. Pertinent negatives include normal sphincter tone. A few small and large-mouthed diverticula were found in the entire colon. Non-bleeding external and internal hemorrhoids were found. A 3 to 8 mm polyp was found in the hepatic flexure. The polyp was sessile. The polyp was removed with a cold biopsy forceps. Resection and retrieval were complete. Verification of patient identification for the specimen was done by the nurse. Estimated blood loss was minimal. Thin wall palpated between vagina and rectum, suspect rectocoele. Impression: - Diverticulosis in the entire examined colon. - Non-bleeding external and internal hemorrhoids. - One 3 to 8 mm sessile polyp at the hepatic flexure, removed with a cold biopsy forceps. Resected and retrieved. Recommendation: - Repeat colonoscopy date to be determined after pending pathology results are reviewed for surveillance based on pathology results. - A virtual visit will be set up with patient with Jennifer Arellano PA-C for discussion fo pathology results - Continue present medications. Procedure Code(s): --- Professional --- 10156, Colonoscopy, flexible; with biopsy, single or multiple Diagnosis Code(s): --- Professional --- K64.8, Other hemorrhoids D12.3, Benign neoplasm of transverse colon (hepatic flexure or splenic flexure) R10.84, Generalized abdominal pain D50.9, Iron deficiency anemia, unspecified K57.30, Diverticulosis of large intestine without perforation or abscess without bleeding CPT copyright 2017 [employer]. All rights reserved. The codes documented in this report are preliminary and upon cigarette maker review may be revised to meet current compliance requirements. MD Susan Farr MD 05/16/2020 1:52:22 PM This report has been signed electronically. Number of Addenda: 0 Note Initiated On: 05/16/2020 1:20 PM
--- NOTE | 2020-05-16 13:53 | OP.CCLET_ITS ---
05/16/2020 Ady Ignacio [address] [place] [address] Re : Colonoscopy procedure for Hazel García Dear Dr. Ignacio This procedure was performed on Saturday, May 16, 2020. My impressions and recommendations are as follows: Impressions : - Diverticulosis in the entire examined colon. - Non-bleeding external and internal hemorrhoids. - One 3 to 8 mm sessile polyp at the hepatic flexure, removed with a cold biopsy forceps. Resected and retrieved. Recommendations : - Repeat colonoscopy date to be determined after pending pathology results are reviewed for surveillance based on pathology results. - A virtual visit will be set up with patient with Jennifer Arellano PA-C for discussion fo pathology results - Continue present medications. My findings are described in the full procedure note, which is enclosed. If I can be of further assistance, please feel free to contact me at Doctor phone number(s): , Work: . Sincerely, MD Susan Farr MD 05/16/2020 1:52:22 PM This report has been signed electronically.
== END 2020-05-16 15:02 | disposition home health service (06) ==
LOC: EN 10:52 → AC 10:54
PROVIDERS: Anesthesiology; PCP Internal Medicine; Referring Provider Internal Medicine; Visit Provider Surgery
PROC: 0DJD8ZZ Inspection of Lower Intestinal Tract, Via Natural or Artificial Opening Endoscopic (ICD-10-PCS; CPT 45378; principal; 2020-05-16 11:55)
DX: K29.70 Gastritis, unspecified, without bleeding (principal); D50.9 Iron deficiency anemia, unspecified; D12.3 Benign neoplasm of transverse colon; K57.30 Diverticulosis of large intestine without perforation or abscess without bleeding; K64.4 Residual hemorrhoidal skin tags; K64.8 Other hemorrhoids; K92.1 Melena; K21.9 Gastro-esophageal reflux disease without esophagitis; D12.5 Benign neoplasm of sigmoid colon; R10.84 Generalized abdominal pain; I13.0 Hypertensive heart and chronic kidney disease with heart failure and stage 1 through stage 4 chronic kidney disease, or unspecified chronic kidney disease; E11.22 Type 2 diabetes mellitus with diabetic chronic kidney disease; N18.3 Chronic kidney disease, stage 3 (moderate); I50.9 Heart failure, unspecified; E78.00 Pure hypercholesterolemia, unspecified; I27.20 Pulmonary hypertension, unspecified; F32.9 Major depressive disorder, single episode, unspecified; I25.10 Atherosclerotic heart disease of native coronary artery without angina pectoris; I25.5 Ischemic cardiomyopathy; E11.51 Type 2 diabetes mellitus with diabetic peripheral angiopathy without gangrene; E11.42 Type 2 diabetes mellitus with diabetic polyneuropathy; J44.9 Chronic obstructive pulmonary disease, unspecified; G25.81 Restless legs syndrome; Z95.5 Presence of coronary angioplasty implant and graft; Z87.891 Personal history of nicotine dependence; Z79.82 Long term (current) use of aspirin; Z79.01 Long term (current) use of anticoagulants; Z79.02 Long term (current) use of antithrombotics/antiplatelets; Z79.899 Other long term (current) drug therapy; Z11.59 Encounter for screening for other viral diseases; Z80.0 Family history of malignant neoplasm of digestive organs
CPT/HCPCS: 43239; 45380; 82962; 87635; 88305; 88342; G2023; J7120; J2405; U0003

== ENCOUNTER → 2020-05-30 12:02 | Outpatient (CLI) | payer MEDICARE, SELFPAY ==
[2020-05-16 11:24] VITALS: BMI 26.8
[2020-05-30 12:35] LABS: Hematocrit 34.5 % (37-47); Hemoglobin 9.9 g/dL (12.0-15.0); Mean Corp Hgb Conc 28.7 g/dL (32-36); Mean Corpuscular Hgb 25.6 pg (27.0-32.0); Mean Corpuscular Volume 89.4 fL (81-99); Mean Platelet Vol. 9.8 fl (6.2-12.0); Platelet Count 346 K/mm3 (150-450); RBC Distribution Width CV 14.9 % (11.6-14.6); RBC Distribution Width SD 48.2 fl (35.1-43.9); Red Blood Count 3.86 M/mm3 (4.2-5.4); White Blood Count 8.5 K/mm3 (4.4-11.0)
[2020-05-30 12:52] LABS: Albumin, Serum 3.6 g/dL (3.2-5.0); BUN 21 mg/dL (7-18); Calcium,Total 8.6 mg/dL (8.5-10.1); Chloride 109 mmol/L (98-107); Creatinine, Serum 1.05 mg/dL (0.55-1.02); EST Glomerular Filtration Rate 53 mL/min (>60); Est Glom Filt Rate - Afr Amer 64 mL/min (>60); Ferritin 25 ng/mL (8-252); Glucose 90 mg/dL (74-106); Iron 46 ug/dL (50-170); Iron Binding Capacity,Total 341 ug/dL (250-450); PERCENT IRON SATURATION 13.5 % (15.0-55.0); Phosphorus 3.1 mg/dL (2.5-4.9); Potassium 4.4 mmol/L (3.5-5.1); Sodium Level 141 mmol/L (136-145)
[2020-05-30 13:03] LABS: Microalbumin,Random Urine 8.8 mg/L (NO RANGE EST.); Microalbumin:Creatinine Ratio 34.7 mg/g CRE (<30 mg/g CRE)
[2020-05-30 13:10] LABS: PTHIN 94.1 pg/mL (18.4-80.1)
== END ==
PROVIDERS: PCP Internal Medicine; Visit Provider Internal Medicine Nephrology
DX: E11.22 Type 2 diabetes mellitus with diabetic chronic kidney disease (principal); D64.9 Anemia, unspecified; N18.3 Chronic kidney disease, stage 3 (moderate)
CPT/HCPCS: 36415; 80069; 82043; 82570; 82728; 83540; 83550; 83970; 85027

== ENCOUNTER → 2020-06-07 09:57 | Outpatient (CLI) | payer MEDICARE, SELFPAY ==
[2020-05-16 11:24] VITALS: BMI 26.8
--- NOTE | 2020-06-07 10:04 | US_ITS ---
STUDY: RENAL ULTRASOUND - COMPLETE REASON FOR EXAM: Female, 84 years old. CKD STAGE 3 TECHNIQUE: Ultrasound evaluation of the kidneys was performed with real-time and static niño-scale imaging. COMPARISON: None. FINDINGS: RIGHT KIDNEY: with mild renal atrophy. The right kidney measures 7.9 cm x 4.6 cm x 4.0 cm. There is diffuse thinning of the renal cortex. The renal cortex measures 0.8 cm. There is no right renal mass or cyst. There are no right renal calculi. There is no right hydronephrosis. DISTAL RIGHT URETER: There is non-visualization of the distal right ureter. There is no demonstrated right ureterovesical junction calculus. There is no demonstrated right ureteral jet. LEFT KIDNEY: with mild renal atrophy. The left kidney measures 8.6 cm x 3.9 cm x 4.6 cm. There is a normal cortex of the left kidney. The renal cortex measures 1.0 cm. There is no left renal mass or cyst. There are no left renal calculi. There is no left hydronephrosis. DISTAL LEFT URETER: There is non-visualization of the distal left ureter. There is no demonstrated left ureterovesical junction calculus. There is a visualized left ureteral jet. BLADDER: The distended urinary bladder has a volume of 164 ml. There is a normal wall thickness of the distended urinary bladder. There is no demonstrated mass within the urinary bladder. There are no demonstrated bladder calculi. US/Kidney and Bladder IMPRESSION: Mild degree of bilateral renal atrophy. Electronically Signed: Guillermo Paulino, at 13:27 EDT , Service support ,
== END ==
PROVIDERS: PCP Internal Medicine; Referring Provider Internal Medicine Nephrology; Visit Provider Internal Medicine Nephrology
DX: N18.3 Chronic kidney disease, stage 3 (moderate) (principal)
CPT/HCPCS: 76770

== ENCOUNTER → 2020-06-28 08:06 | Outpatient (CLI) | payer MEDICARE, SELFPAY ==
[2020-05-16 11:24] VITALS: BMI 26.8
[2020-06-28 09:45] LABS: Albumin, Serum 3.2 g/dL (3.2-5.0); BUN 21 mg/dL (7-18); BUN/Creat Ratio 19.8 RATIO (10-20); Calcium,Total 8.5 mg/dL (8.5-10.1); Chloride 112 mmol/L (98-107); Creatinine, Serum 1.06 mg/dL (0.55-1.02); EST Glomerular Filtration Rate 52 mL/min (>60); Est Glom Filt Rate - Afr Amer 63 mL/min (>60); Glucose 115 mg/dL (74-106); Phosphorus 2.9 mg/dL (2.5-4.9); Sodium Level 142 mmol/L (136-145)
== END ==
PROVIDERS: PCP Internal Medicine; Referring Provider Internal Medicine Nephrology; Visit Provider Internal Medicine Nephrology
DX: N18.3 Chronic kidney disease, stage 3 (moderate) (principal)
CPT/HCPCS: 36415; 80069

== ENCOUNTER 2020-10-12 10:25 | Inpatient (IN) | payer MEDICARE, SELFPAY ==
[2020-05-16 11:24] VITALS: BMI 26.8
[2020-10-12] VITALS (14 sets, daily range): BP systolic 104–135; BP diastolic 35–70; PULSE 78–91; RESP 16–25; TEMP 36.4–36.9; O2SAT 94–100; BMI 38.1; BMI 38.8
[2020-10-12 11:01] LABS: Absolute Neutrophil Count 12.8 X10^3/uL (2.0-7.7); Basophil# 0.01 X10^3/uL; Basophil% 0.1 % (0-1); Eosinophil# 0.01 X10^3/uL; Eosinophils% 0.1 % (0-5); Hematocrit 18.1 % (37-47); Lymphocyte % 4.3 % (19-41); Mean Corp Hgb Conc 28.2 g/dL (32-36); Mean Corpuscular Hgb 27.7 pg (27.0-32.0); Mean Corpuscular Volume 98.4 fL (81-99); Mean Platelet Vol. 9.3 fl (6.2-12.0); Monocyte# 0.24 X10^3/uL; Monocyte% 1.7 % (0-10); NRBC Flagged by Analyzer 1.3 % (0-5); Neutrophil % 92.1 % (47-70); POSITIVE COUNT YES; POSITIVE DIFFERENTIAL YES; POSITIVE MORPHOLOGY YES; Platelet Count 379 K/mm3 (150-450); RBC Distribution Width SD 68.9 fl (35.1-43.9); Red Blood Count 1.84 M/mm3 (4.2-5.4); White Blood Count 13.9 K/mm3 (4.4-11.0)
--- NOTE | 2020-10-12 11:01 | ED.DCSUM_ITS ---
History of Present Illness Chief Complaint: Abn Labs Informant: Patient Narrative: Patient is an 84-year-old female with a past medical history of coronary artery disease with stents, diabetes who presents to the ED after having abnormal outpatient lab work. She was found to be anemic. She states that she is on iron for anemia at baseline. She has required transfusion before but has been multiple years. She denies any chest pain, shortness of breath, palpitations or lightheadedness. No near syncope symptoms. States that she does have black stools but this is chronic for her being on the iron. She denies any bleeding or bruising elsewhere. She denies any abdominal pain. No infectious symptoms. No fevers or chills. Past Medical History - Allergies and Home Meds Allergies/Adverse Reactions: Allergies acetaminophen [From Tylenol] Allergy (Verified 10/12/20 10:28) Hives iodine Allergy (Verified 10/12/20 10:28) Hives nabumetone Allergy (Verified 10/12/20 10:28) Unknown pregabalin [From Lyrica] Allergy (Verified 10/12/20 10:28) Unknown albuterol [From ProAir HFA] Adverse Reaction (Verified 10/12/20 10:28) Other Prior records reviewed: Yes Surgical History: cholecystectomy, hysterectomy, - - heart stents Smoking Status: Former smoker - Family History Maternal Family History: Family History (Last Reviewed 04/08/19 @ 15:18 by Margie Cruz) Father Heart disease Mother Cancer Brother Heart disease Family History: Reports: No pertinent history Paternal Family History: Family History (Last Reviewed 04/08/19 @ 15:18 by Margie Cruz) Father Heart disease Mother Cancer Brother Heart disease Family History: Reports: No pertinent history Review of Systems All systems negative except as indicated General: Denies: Chills, Fever, Sweats Eyes: Denies: Visual changes - bilaterally, Diplopia ENT: Denies: Rhinorrhea, Sore throat Cardiovascular: Denies: Chest pain, Palpitations Respiratory: Denies: Dyspnea, Cough, Dyspnea on exertion Gastrointestinal: Denies: Abdominal pain, Nausea, Vomiting, Diarrhea Genitourinary: Denies: Dysuria, Hematuria, Frequency Musculoskeletal: Denies: Back pain, Extremity Pain Skin: Denies: Rash, Wounds Neurological: Denies: Headache, Weakness, Numbness Physical Exam Vital Signs/Narrative: Vital Signs Temp Pulse Resp BP Pulse Ox 10/12/20 10:26 98 F 90 18 132/44 H 94 Inital Vital Signs reviewed: Yes - Low blood pressure but states she always has low blood pressure General: Well nourished, Well developed, No Acute Distress Head: Normocephalic, Atraumatic Eyes: Perrl, EOMI ENT: Moist mucous membranes, No rhinorrhea Neck: Supple, Nontender Cardiovascular: Regular rate, Regular rhythm, No murmurs Respiratory: No distress, CTA bilaterally, Chest nontender Abdomen: Soft, Nontender, Nondistended, Normal bowel sounds Back: Nontender, Normal Inspection Extremities: Nontender, No edema Skin: No rash, Pallor Neurological: Alert, Oriented x3, Cranial nerves II-XII grossly intact, Normal Strength, Normal Sensation Psychological: Normal affect, Normal Mood Diagnostic/Tx/Re-eval Chest X-Ray - ED: - - Single view chest x-ray interpreted by myself. There is consolidation of the right upper and right lower lobes. Normal cardiac silhouette. There is atherosclerosis of the aorta. No significant pleural effusion seen. Agree with radiologist interpretation. - EKG Initial EKG Interpretation: - - Rate of 83 bpm and normal sinus rhythm. Normal intervals. Normal axis. No significant ST elevations or depressions. No T wave abnormalities. - Medical Decision Making Patient presents to the ED for abnormal outpatient lab work. She is found to have a low hemoglobin. Patient otherwise denies any symptoms whatsoever. Upon arrival to the ED she has a low diastolic blood pressure. Otherwise is asymptomatic with this. Will check basic lab work here to confirm if she needs a transfusion. Patient's hemoglobin did come back at 5.1. With the black stools will treat this as a GI bleed. She is transfused a unit and crossmatched for 2. She is given a dose of Protonix. I did contact general surgery who is willing to perform an EGD if necessary. She did not have any episodes of bleeding throughout ED stay. I did contact the family member, her daughter who is better at providing a history. Apparently she has been coughing and just completed course of Levaquin and prednisone. She had a few episodes of hemoptysis. She has been complaining of weakness and shortness of breath. X-ray obtained which showed evidence of pneumonia. We will start her on azithromycin and Rocephin. She otherwise has been stable throughout ED stay. She is agreeable to staying in the hospital at this time. ED Disposition - Plan for ED Patient: Disposition: Acute Care Hospital [facility] Diagnosis: Blood loss anemia, Melena, Community acquired pneumonia
[2020-10-12 11:03] LABS: Differential Indicated SCAN CRITERIA MET; Hemoglobin 5.1 g/dL (12.0-15.0)
[2020-10-12 11:18] LABS: Anisocytosis 1+
[2020-10-12 11:19] LABS: AST(SGOT) 23 U/L (15-37); Alanine Aminotransfer ALT/SGPT 30 U/L (13-56); Albumin, Serum 2.5 g/dL (3.2-5.0); Alkaline Phosphatase 55 U/L (45-117); Anion Gap 9 (5-15); BUN 31 mg/dL (7-18); BUN/Creat Ratio 23.8 RATIO (10-20); Bilirubin, Direct 0.08 mg/dL (0.00-0.30); Calcium,Total 7.4 mg/dL (8.5-10.1); Chloride 110 mmol/L (98-107); EST Glomerular Filtration Rate 41 mL/min (>60); Est Glom Filt Rate - Afr Amer 50 mL/min (>60); Estimated Creatinine Clearance 28.83 ml/min; Globulin 2.3 g/dL (2.2-4.2); Glucose 200 mg/dL (74-106); Potassium 3.9 mmol/L (3.5-5.1); Protein, Total 4.8 g/dL (6.4-8.2); Sodium Level 144 mmol/L (136-145)
--- NOTE | 2020-10-12 11:29 | RAD_ITS ---
STUDY: X-RAY CHEST REASON FOR EXAM: Female, 84 years old. Cough, low hemoglobin TECHNIQUE: Single AP portable view of the chest. COMPARISON: Comparison is made with prior study dated 02/04/2019. FINDINGS: New infiltrate in the right upper and right lower lobes. Stable mild increased markings at the left lung base. There is no demonstrated pleural abnormality. Normal size heart. Normal mediastinum and meka. Normal visualized pulmonary arteries. There is atherosclerotic calcification of the aortic arch with tortuosity. There are diffuse degenerative changes of the visualized thoracic spine. Normal visualized ribs, clavicles, and shoulders. There is no demonstrated abnormality of the visualized soft tissue structures of the upper abdomen. RAD/Chest 1 View (Portable) IMPRESSION: New right upper and right lower lobe infiltrates. Stable scarring at the left lung base. Electronically Signed: Guillermo Paulino, at 12:11 EST , Service support ,
--- NOTE | 2020-10-12 12:41 | EKG12_ITS ---
Test Reason : Blood Pressure : / mmHG Vent. Rate : 083 BPM Atrial Rate : 083 BPM P-R Int : 120 ms QRS Dur : 070 ms QT Int : 358 ms P-R-T Axes : 067 012 054 degrees QTc Int : 420 ms Normal sinus rhythm Nonspecific ST abnormality Abnormal ECG Confirmed by DIANNE MOSQUEDA, JENN ([id number]), purchase request editor NALDO KAY ([id number]) on 10/13/2020 2:11:46 PM Referred By: PINKY Confirmed By:JENN DEAN MD
[2020-10-12] MEDS: Ceftriaxone 1 GM/50 ML BAG IV (13:35)
--- NOTE | 2020-10-12 13:47 | HP.PCM_ITS ---
Problem List (1) CHF (congestive heart failure) Status: Chronic Qualifiers: Heart failure type: unspecified (2) Ischemic cardiomyopathy Status: Chronic (3) CKD (chronic kidney disease) Status: Chronic Qualifiers: Chronic kidney disease stage: stage 3 (moderate) Chronic kidney disease stage 3 subtype: unspecified whether 3a or 3b Qualified Code(s): N18.30 - Chronic kidney disease, stage 3 unspecified (4) Type 2 diabetes mellitus Status: Chronic Qualifiers: Diabetes mellitus intermodal dispatcher insulin use: without intermodal dispatcher use Diabetes mellitus complication status: with other specified complication Qualified Code(s): E11.69 - Type 2 diabetes mellitus with other specified complication (5) EKATERINA (obstructive sleep apnea) Status: Chronic (6) Essential hypertension Status: Chronic (7) Atherosclerotic heart disease of [place] coronary artery without angina pectoris Status: Chronic Qualifiers: [place] vs. transplanted heart: [place] heart Qualified Code(s): I25.10 - Atherosclerotic heart disease of [place] coronary artery without angina pectoris Comment: Stenting to LCx at [facility]; (8) COPD (chronic obstructive pulmonary disease) Status: Chronic Qualifiers: COPD type: unspecified COPD Qualified Code(s): J44.9 - Chronic obstructive pulmonary disease, unspecified History of Present Illness Date of Admission: 10/12/20 Chief Complaint: Abnormal blood work The patient is a 84 year old F with past medical history of CAD/ischemic cardiomyopathy, PAD, COPD, type II DM who comes in with an abnormal blood work. Patient had blood work done with her oncologist and was called to come into the hospital. She reportedly has melena stools and has been coughing up some blood. Patient is a poor historian and is reluctant to give details. She came to the hospital at the insistence of her daughter. At the time of being seen, patient denied any chest pain or dizziness or palpitations or syncope. She was questioning why she was in the hospital. Her vitals in the ED showed temperature of 98F, heart rate 90, blood pressure 132/44, respiratory rate was 18, SPO2 is 94% on room air. BC count 13.9, hemoglobin 5.1, platelet count 373, INR 1.2, sodium 144, calcium 3.9, chloride 110, bicarbonate 25, BUN 31, creatinine 1.3, LFTs were unremarkable. COVID-19 test was negative. Admitting chest x-ray showed new right upper and right lower lobe infiltrates Past Medical History Past Medical History (Chronic Problems): Chronic Problems (Last Reviewed 04/08/19 @ 15:18 by Margie Cruz) CHF (congestive heart failure) (Chronic) Pulmonary hypertension (Chronic) Ischemic cardiomyopathy (Chronic) CKD (chronic kidney disease) (Chronic) Type 2 diabetes mellitus (Chronic) EKATERINA (obstructive sleep apnea) (Chronic) Essential hypertension (Chronic) Atherosclerotic heart disease of [place] coronary artery without angina pectoris (Chronic) Stenting to LCx at [facility]; Mixed hyperlipidemia (Chronic) COPD (chronic obstructive pulmonary disease) (Chronic) Medical History: Medical History (Last Reviewed 04/08/19 @ 15:18 by Margie Cruz) CHF (congestive heart failure) (Chronic) I50.9 Pulmonary hypertension (Chronic) I27.20 Ischemic cardiomyopathy (Chronic) I25.5 CKD (chronic kidney disease) (Chronic) N18.9 Type 2 diabetes mellitus (Chronic) E11.9 EKATERINA (obstructive sleep apnea) (Chronic) G47.33 Essential hypertension (Chronic) I10 Atherosclerotic heart disease of [place] coronary artery without angina pectoris (Chronic) I25.10 Stenting to LCx at [facility]; Mixed hyperlipidemia (Chronic) E78.2 COPD (chronic obstructive pulmonary disease) (Chronic) J44.9 Syncope (Acute) R55 Carotid artery disease I77.9 Macular degeneration H35.30 PVD (peripheral vascular disease) I73.9 Presence of stent in coronary artery Z95.5 PCI/Stent to CX; PCI to RCA 2013 Hypoxia (Resolved) R09.02 Pneumonia (Resolved) J18.9 CAD (coronary artery disease) (Inactive) I25.10 Chronic CHF (Inactive) I50.9 Dyslipidemia (Inactive) E78.5 HTN (hypertension) (Inactive) I10 PAD (peripheral artery disease) (Inactive) I73.9 Type II diabetes mellitus (Inactive) E11.9 Allergies acetaminophen [From Tylenol] Allergy (Verified 10/12/20 10:28) Hives iodine Allergy (Verified 10/12/20 10:28) Hives nabumetone Allergy (Verified 10/12/20 10:28) Unknown pregabalin [From Lyrica] Allergy (Verified 10/12/20 10:28) Unknown albuterol [From ProAir HFA] Adverse Reaction (Verified 10/12/20 10:28) Other Home Medications: Ambulatory Orders Medication Instructions Recorded Lansoprazole [Prevacid] 30 mg PO DAILY 10/27/14 Multivitamins,Therapeutic 1 tab PO DAILY 10/27/14 [Multivitamin] Nitroglycerin (INPATIENT USE) 0.4 mg SUBLINGUAL Q5M PRN 10/27/14 [Nitrostat] Vit A/Vit C/Vit E/Zinc/Copper 1 ea PO BID 10/27/14 [Preservision Areds Softgel] Calcium Carbonate [Calcium] 600 mg PO DAILY 02/04/17 Clopidogrel Bisulfate [Plavix] 75 mg PO DAILY 02/04/17 Ferrous Sulfate [Iron Supplement] 325 mg PO TID 07/08/17 albuterol sulfate 90 mcg/actuation 2 puff INHALATION Q6H PRN 04/07/19 aerosol inhaler amlodipine 10 mg tablet 5 mg PO BID 04/07/19 aspirin 81 mg tablet,delayed 81 mg PO DAILY 04/07/19 release fluticasone propionate 50 2 spray INTRANASAL DAILY 04/07/19 mcg/actuation nasal spray,suspension tiotropium bromide 2.5 2 puff INHALATION DAILY 04/07/19 mcg/actuation mist for inhalation metoprolol tartrate 50 mg tablet 100 mg PO BID tab 04/08/19 lisinopril 20 mg tablet 10 mg PO BID tab 04/21/20 Atorvastatin Calcium 40 mg PO QHS 10/12/20 Furosemide [Lasix] 20 mg PO DAILY 10/12/20 Glimepiride 1 mg PO DAILY 10/12/20 Guaifenesin [Mucinex] 600 mg PO BID 10/12/20 Isosorbide Mononitrate [Isosorbide 30 mg PO DAILY 10/12/20 Mononitrate ER] Mometasone/Formoterol [Dulera 200 1 puff IH BID 10/12/20 Mcg/5 Mcg Inhaler] Prednisone See Taper PO DAILY 10/12/20 Surgical History: Surgical History (Last Reviewed 04/08/19 @ 15:18 by Margie Crzu) Presence of coronary angioplasty implant and graft Z95.5 PCI/Stent to CX; PCI to RCA 2013 History of cholecystectomy Z90.49 History of hysterectomy Z90.710 H/O heart artery stent (Inactive) Z95.5 Surgical History: cholecystectomy, hysterectomy, - - heart stents Psychiatric History: No pertinent psych hx 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 Denies: Anorexia, Chills, Fever, Night Sweats, Weight Change Eyes: Denies: Blurred vision, Cataracts, Conjunctivae Inflammation, Pain, Redness HEENT: Denies: Difficulty Hearing, Difficulty Swallowing, Head Aches, Sinus Congestion, Sinus Drainage, Sore Throat Cardiovascular: Denies: Chest Pain, Claudication, Orthopnea, Palpitations Respiratory: Reports: Cough, Hemoptysis, Shortness of breath at rest, Shortness of breath upon exertion, Sputum production Gastrointestinal: Reports: Melena. Denies: Abdominal Pain, Constipation, Hematemesis, Hematochezia, Nausea, Vomiting Genitourinary: Denies: Dysuria Musculoskeletal: Denies: Joint Pain, Joint Tenderness Skin: Denies: Rash, Wounds Neurological: Denies: Numbness, Tingling, Focal weakness Psychiatric: Denies: Anxiety, Depression, Homicidal Ideations, Suicidal Ideations Hematologic/ Lymphatic: Denies: Easy Bruising, Easy Bleeding VTE Information - Inpt Only VTE Present on Admission: No VTE Pharm Prophylaxis ordered?: Yes Patient Problems: Active and Suspected Problems (Last Reviewed 04/08/19 @ 15:18 by Margie Cruz) Blood loss anemia (Acute) Melena (Acute) Community acquired pneumonia (Acute) - Physical Exam Vitals/I&O's: Vital Signs Temp Pulse Resp BP Pulse Ox 97.7 F L 84 24 H 133/43 H 100 10/12/20 13:18 10/12/20 13:18 10/12/20 13:18 10/12/20 13:18 10/12/20 13:18 Oxygen Flow Rate (L/min) 2 Oxygen Delivery Method Nasal Cannula Weight: 56.699 kg Body Mass Index (BMI) 38.1 Intake and Output for Last 24 Hours 10/10/20 10/11/20 10/12/20 23:59 23:59 23:59 Intake Total Balance General: Alert, Oriented x3, Cooperative, No apparent distress HEENT: Atraumatic, PERRLA, EOMI, Normocephalic Oral: Moist Mucosa Neck: Supple Lungs: Diminished Cardiovascular: Regular rate, Regular Rhythm, Normal S1, Normal S2, No murmurs Abdomen: Bowel Sounds Present, Soft, Non Tender, Non-Distended, No Hepato- splenomegaly Extremities: No edema Skin: No rashes Musculoskeletal: No Tenderness to Palpation of Joints or Extremities Lymphatic: No Cervical, Supraclavicular, or Inguinal Adenopathy Neurological: Cranial nerves II-XII grossly intact, Neuro grossly intact Psych/Mental Status: Normal Affect, Appropriate Microbiology Past 72 Hours 10/12/20 11:43 Mucosa - Nose SARS-CoV-2 Antigen (Rapid) - Final Laboratory Results 10/12/20 10:50: WBC 13.9 H, RBC 1.84 L, Hgb 5.1 L*, Hct 18.1 L, MCV 98.4, MCH 27.7, MCHC 28.2 L, RDW Std Deviation 68.9 H, RDW Coeff of [place] 20.0 H, Plt Count 379, MPV 9.3, Immature Gran % (Auto) 1.700 H, Neut % (Auto) 92.1 H, Lymph % (Auto) 4.3 L, [place] % (Auto) 1.7, Eos % (Auto) 0.1, Baso % (Auto) 0.1, Absolute Neuts (auto) 12.8 H, Absolute Lymphs (auto) 0.60 L, Nucleated RBC % 1.3, Differential Comment COMMENT, Diff Path Review May foll, Anisocytosis 1+ 10/12/20 10:50: Sodium 144, Potassium 3.9, Chloride 110 H, Carbon Dioxide 25.0, Anion Gap 9, BUN 31 H, Creatinine 1.30 H, Estim Creat Clear Calc 28.83, Est GFR (MDRD) Af Amer 50 L, Est GFR (MDRD) Non-Af 41 L, BUN/Creatinine Ratio 23.8 H, Glucose 200 H, Calcium 7.4 L, Total Bilirubin 0.20, Direct Bilirubin 0.08, AST 23, ALT 30, Alkaline Phosphatase 55, Total Protein 4.8 L, Albumin 2.5 L, Globulin 2.3 10/12/20 10:50: Blood Type O POSITIVE, Antibody Screen NEGATIVE 10/12/20 10:50: Crossmatch See Detail 10/12/20 10:50: Troponin I 0.015 10/12/20 10:50: PT Pending, INR Pending, APTT Pending Current Medications Azithromycin 500 mg/ Dextrose 255 mls @ 250 mls/hr IV X1 ONE Stop: 10/12/20 14:12 Assessment/Plan All Active Problems (Last Reviewed 04/08/19 @ 15:18 by Margie Cruz) Blood loss anemia (Acute) Melena (Acute) Community acquired pneumonia (Acute) Syncope (Acute) Acute blood loss anemia (Resolved) GI bleed (Resolved) Hypoxia (Resolved) Pneumonia (Resolved) 1. Acute severe anemia likely secondary to acute blood loss anemia from GI bleed Admitting hemoglobin is 5.1 She will be transfused 2 units of packed RBCs, Lasix 20mg IV x1 chcf through blood transfusion general surgery consult 2. Acute GI bleed, unclear etiology Patient is a poor historian and denies any melena but had told the ED physician that she had melena. She had recent colonoscopy EGD done in May 2020. Findings showed gastritis, diverticulosis, polyp General surgery consulted Continue on IV PPI 3. CAD s/p stent/ischemic cardiomyopathy/hypertension/hyperlipidemia/PAD Stent was placed in the left circumflex in 2013 Aspirin, Plavix on hold Metoprolol, lisinopril, atorvastatin, isosorbide continued Continue work-up for acute GI bleed 4. Hypertension, continue on amlodipine, metoprolol, lisinopril with holding parameters 5. Type II DM, on glimepiride, glimepiride held Continue blood glucose checks and insulin sliding scale 6. Pneumonia, patient had complained of hemoptysis to her daughter Chest x-ray showed new right upper and right lower lobe infiltrate Started on IV ceftriaxone and azithromycin Continue same Legionella and streptococcal antigen 7. COPD, without acute exacerbation Continue on DuoNeb and maintained on budesonide 8. DVT PPx- SCDs 9. CODE STATUS?DNR CCA, no intubation I discussed and explained in details the various types of CODE STATUS-full code, DNR CCA, DNR CC. Patient chose DNR CCA, no intubation Time spent discussing CODE STATUS 16 minutes Inpatient E&M: 60477 Init Hosp L3 Procedures: 38567 Advncd Care Plan 30 Min
[2020-10-12 13:54] LABS: International Normalized Ratio 1.2; Prothrombin Time (Protime)PT. 14.3 SECONDS (11.7-14.9)
--- NOTE | 2020-10-12 16:02 | PCS.PANDOC ---
PANDEMIC DOCUMENTATION INITIATED: Date: 10/12/20 Time:1741
[2020-10-12] MEDS: Ferrous Sulfate 325 MG Tablet PO (16:24)
--- NOTE | 2020-10-12 17:49 | PCM.CONS.B ---
- Consult Date of Consult: 10/12/20 - Reason for Consult Hazel García 1935 ? ?? CHIEF COMPLAINT: anemia ? HPI: Hazel is an 84 year old female who presents with severe anemia - Hgb of 5. She denies abdominal pain. She denies noting any blood in her stools. She denies hematemesis. She last had an upper and lower endoscopy in May 2020 I have been asked to see patient for consideration of endoscopy. She is presently on prevacid and has been for years. She has a sister who had colon cancer in her 60s or 70s. The patient herself has a history of colon polyps in the remote past. She is presently on blood thinners for her cardiac stents. Her last hemoglobin was noted to be . She also had previous capsule endoscopy of small bowel 2014 - [place] ? ? PAST MEDICAL HISTORY ? Arrhythmia ? ? BENIGN NEOPLASM LG BOWEL 08/21/2007 ? Adenomatous polyp removed from Sigmoid in 1992 Colonoscopy 06-15-07 (sister with colon ca): left sided tics with no polyps or masses ? CHF (congestive heart failure) ([facility]) ? ? Chronic airway obstruction, not elsewhere classified ? ? CKD (chronic kidney disease) stage 3, GFR 30-59 ml/min ([facility]) 08/27/2017 ? Closed Colles' fracture of left radius 02/27/2017 ? Coronary artery disease ? ? Diverticulosis of colon (without mention of hemorrhage) ? ? DM Neuro Manif Type II 03/20/2010 ? Esophageal reflux 08/21/2007 ? Hallux valgus (acquired) 03/20/2010 ? MACULAR DEGENERATION NOS 11/24/2007 ? [facility] 10-21-07: L eye with MD s/p cataract extraction-[facility] 12-11: L eye YAG capsulotomy after cataract extraction 11-23-07, 20/40 R, count fingers L ? Oropharyngeal dysphagia 09/13/2015 ? Honey thickened liquids. ? Osteopenia ? ? Osteopenia of multiple sites (Clinical osteoporosis) 03/11/2017 ? Other and unspecified hyperlipidemia ? ? Other psoriasis and similar disorders ? ? Psoriasis ? PAD (peripheral artery disease) ([facility]) both lower extremities. 06/02/2018 ? Dr. Jose Luis Marie, Vascular Surgery ? 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 Restless legs syndrome (RLS) 08/21/2007 ? Tobacco use disorder 07/27/2008 ? Quit tobacco about age 63: about a 30 pack year (started about 1970 and quit about 1999) UA negative for blood in 07-11, 03-11 ? Type II or unspecified type diabetes mellitus without mention of complication, not stated as uncontrolled ? ? Unspecified essential hypertension ? ? PAST SURGICAL HISTORY ? BX BREAST PERC VACUUM/ROTN ? 05/09/10 ? Left ? CC CORONARY STENT ? 08/07/2014 ? Stents x 2 ? CC CORONARY STENT ? 2003 ? Stent x 1 ? COLONOSCOP W/ OR W/O BRSH SPEC ? 09/06/2002 ? Colonoscopy ? COLONOSCOP W/ OR W/O BRSH SPEC ? 06/15/2007 ? Colonoscopy ? COLONOSCOP W/ OR W/O BRSH SPEC ? 11/26/2013 ? Colonoscopy ? COLONOSCOP W/ OR W/O BRSH SPEC ? 12/01/14 ? Colonoscopy ? COLONOSCOP W/ OR W/O BRSH SPEC ? 03/16/2015 ? Colonoscopy ? EGD W/O OR W/BRUSH/WASH ? 04/15/2001 ? EGD ? EGD W/O OR W/BRUSH/WASH ? [facility]28/14 [facility] LIGATE FALLOPIAN TUBE ? 1967 ? Tubal ligation ? REMOVAL GALLBLADDER ? 1983 ? Cholecystectomy ? REMOVAL OF TONSILS,<12 Y/O ? 194 ? Tonsillectomy ? REMV CATARACT EXTRACAP,INSERT LENS ? x 2 right and left ? Cataract Removal ? TOTAL ABDOM HYSTERECTOMY ? 1977 ? Hysterectomy, HUE, BSO, appendectomy ? ? Current Outpatient Medications ? lisinopril (ZESTRIL, PRINIVIL) 10 mg tablet Take 1 tablet by mouth twice daily. (Patient taking differently: Take 10 mg by mouth once daily. ? guaiFENesin (MUCINEX) 600 mg 12 hr tablet Take 1 tablet by mouth twice daily. ? blood sugar diagnostic ([employer] ULTRA TEST) test strip Test blood sugar twice daily Dx. Code: E11.40 ? atorvastatin (LIPITOR) 40 mg tablet Take 1 tablet by mouth once daily. ? cephALEXin (KEFLEX) 500 mg capsule Take 1 capsule by mouth twice daily. ? clopidogrel (PLAVIX) 75 mg tablet Take 1 tablet by mouth once daily. ? mometasone-formoterol (DULERA) 200-5 mcg/actuation inhaler Inhale 1 Puff as instructed twice daily. ? lansoprazole (PREVACID) 30 mg capsule Take 1 capsule by mouth once daily. ? amLODIPine (NORVASC) 5 mg tablet Take 1 tablet by mouth twice daily. ? albuterol HFA (VENTOLIN HFA) 90 mcg/actuation inhaler Inhale 2 Puffs as instructed four times daily as needed. ? ferrous sulfate 325 mg (65 mg iron) tablet Take 1 tablet by mouth daily with breakfast. ? tiotropium (SPIRIVA RESPIMAT) 2.5 mcg/actuation inhaler Inhale 2 Puffs as instructed once daily. ? sodium chloride (AYR, OCEAN) 0.65 % nasal spray Use 2 Sprays in the nose twice daily. ? metoprolol tartrate, short acting, (LOPRESSOR) 50 mg tablet Take 2 tablets by mouth twice daily. ? nitroglycerin sublingual (NITROSTAT) 0.4 mg SL tablet Dissolve 1 tablet under the tongue as needed. DISSOLVE ON TONGUE FOR CHEST PAIN. IF NO PAIN RELIEF, CALL 911 (Patient to call when needs) ? Compression Knee Highs KNEE HIGH COMPRESSION STOCKINGS 20-30 MM HG. DX: EDEMA ? Lancets lancets Test blood sugar(s) once times daily. Dx: E11.49 Insulin: No ? aspirin, enteric coated (ASPIRIN, ENTERIC COATED) 81 mg EC tablet Take 81 mg by mouth once daily. ? VIT C/MKCENNA AC/LUT/COPPER/ZNOX (PRESERVISION ORAL) Take by mouth twice daily. ? Pqrzmrlbpngdi-Xjlmbbeb-Orwauh (CENTRUM SILVER) ORAL Tab Take 1 tablet by mouth once daily. ? calcium carbonate/vitamin d3(CALCIUM 600 + D(3) 600 MG (1,500)-200 UNIT TAB) Take one(1) tablet twice daily. ? ? ALLERGIES: Aspirin; Iodine; Lyrica [Pregabalin]; Nabumetone; Proair Hfa [Albuterol Sulfate]; Tylenol [Acetaminophen] ? PERSONAL HISTORY: Social History ?Tobacco Use ? Smoking status: Former Smoker ? ? Packs/day: 1.30 ? ? Years: 45.00 ? ? Pack years: 58.50 ? ? Types: Cigarettes ? ? Start date: 11/03/1968 ? ? Last attempt to quit: 11/03/1999 ? ? Years since quittin.5 ? Smokeless tobacco: Never Used Substance Use Topics ? Alcohol use: No ? Drug use: No ? FAMILY HISTORY ? Emphysema Mother ? ? [place] ? Cancer Mother ? ? Lung ? Emphysema Father ? ? Alzheimer's Disease Sister ? ? Alzheimer's Disease Sister ? ? GI Sister ? ? pancreatitis ? Colon Cancer Sister ? ? Cancer Brother ? ? Lung in 2 brothers ? COPD Sister ? ? Emphysema ? Diabetes Son ? ? other (congestive heart failure) Son ? ? ? REVIEW OF SYSTEMS: General - complains of increased tiredness, denies fevers Cardiovascular - denies chest pain, has cardiac history with placement of stents Pulmonary - feels short of breath with exertion, denies coughing up blood Gastrointestinal - see HPI Neurological - denies seizures Genitourinary - denies burning with urination, denies blood in urine Hematological - has easy bruising, on antiplatelet medication Skin - bruises easily- has thin skin Musculoskeletal - has back pain Endocrine - has diabetes, feels cold all the time, no thyroid problems Psychological ? denies hallucinations ? PHYSICAL EXAMINATION: General: The patient is 84 year old female, well nourished, well hydrated in no acute distress. The patient is oriented to time, place, and person. VITALS: Wt: 125 lb Ht: 4' Temp 98.7F Head ? Normocephalic. EOM intact with sclera clear and no icterus noted. Mouth with mucus membranes moist. Neck - supple with no jugular venous distention noted. Trachea is midline. Lungs ? no labored breathing noted, such as retractions. No cough heard. Heart ? regular Abdomen ? soft and benign. Normal bowel sounds. No abdominal bruits noted.. Extremities ? no pitting edema noted. Skin ? bruises noted, otherwise normal skin integrity. Neurological ? gait normal, no focal deficits noted. Psych ? calm and appropriate ? ? IMPRESSION: anemia ? PLAN: I have discussed the above with the patient. I have offered upper and lower endoscopy for evaluation of anemia I have explained the procedures to the patient. I have counseled the patient as to the risks of the procedure, including but not limited to: infection, bleeding, perforation of the GI tract, injury to any intraabdominal organs such as the liver/spleen, inability to complete the procedure, complications of anesthesia, etc. ? the patient understands. The patient was offered a surgery/procedure. The provider and patient have discussed in detail the risk of exposure to and/or potential harm posed by the COVID-19 virus with having a surgery/procedure at this time versus the risk of delaying the surgery/procedure. It is not possible to know either the risk of delaying the surgery or procedure or chance of getting an infection with perfect accuracy, but a joint decision was made between the patient and the provider to proceed at this time with the scheduled surgery/procedure. The patient wishes to proceed. She states that she will not be able to drink the colon cleansing solution, I have divided into two parts to make it easier for her. told her that she can do a clear liquid diet over two days and divide the solution in half to take each of those days. I have answered all questions to the patient?s satisfaction and the patient has no further questions. . Diagnoses: (D64.9) Anemia, unspecified type (primary encounter diagnosis)
[2020-10-12] MEDS: Electrolyte Solution/Peg's 4000 ML 2000 ML PO (19:10)
[2020-10-12 19:13] LABS: Probe Check PASS; Specimen Processing Control PASS
[2020-10-12] MEDS: amLODIPine 10 MG Tablet 5 MG PO (22:54)
[2020-10-12] MEDS: Lisinopril 10 MG Tablet PO (22:54)
[2020-10-12] MEDS: Metoprolol Tartrate 100 MG Tablet PO (22:54)
[2020-10-12] MEDS: 0.9% Saline Lock 10 ML Syringe IV (22:57)
[2020-10-13] VITALS (29 sets, daily range): BP systolic 89–144; BP diastolic 32–94; PULSE 65–122; RESP 16–20; TEMP 36.6–37.2; O2SAT 91–100
[2020-10-13 00:26] LABS: Hemoglobin 6.8 g/dL (12.0-15.0)
[2020-10-13] MEDS: 0.9% Saline Lock 10 ML Syringe IV ×5 (00:27→22:54)
[2020-10-13] MEDS: Furosemide 20 MG/2 ML VIAL IV (04:49)
[2020-10-13] MEDS: Electrolyte Solution/Peg's 4000 ML 2000 ML PO (05:17)
--- NOTE | 2020-10-13 05:36 | NURSING ---
pt states she isn't sure how much more of the bowel prep she can drink. pt states she told dr muniz that she wasn't going to be able to drink it all.
[2020-10-13] MEDS: Ipratropium/Albuterol Sulfate 3 ML AMPUL.NEB INHALATION ×3 (06:39→20:17)
[2020-10-13 07:10] LABS: Bedside Glucose 70 mg/dL (70-110)
[2020-10-13 07:13] LABS: Absolute Lymphocyte Count 1.96 X10^3/uL (0.83-4.51); Absolute Neutrophil Count 12.4 X10^3/uL (2.0-7.7); Basophil# 0.03 X10^3/uL; Basophil% 0.2 % (0-1); Eosinophil# 0.11 X10^3/uL; Eosinophils% 0.7 % (0-5); Hematocrit 30.5 % (37-47); Hemoglobin 9.1 g/dL (12.0-15.0); Lymphocyte # 1.96 X10^3/ul (4.0); Lymphocyte % 12.5 % (19-41); Mean Corp Hgb Conc 29.8 g/dL (32-36); Mean Corpuscular Hgb 28.4 pg (27.0-32.0); Mean Corpuscular Volume 95.3 fL (81-99); Mean Platelet Vol. 9.1 fl (6.2-12.0); Monocyte# 0.98 X10^3/uL; Monocyte% 6.2 % (0-10); NRBC Flagged by Analyzer 1.2 % (0-5); Neutrophil # 12.36 X10^3/uL (2.7-7.7); Neutrophil % 78.6 % (47-70); Platelet Count 389 K/mm3 (150-450); RBC Distribution Width CV 18.6 % (11.6-14.6); RBC Distribution Width SD 60.2 fl (35.1-43.9); White Blood Count 15.7 K/mm3 (4.4-11.0)
[2020-10-13 07:51] LABS: ALB/GLOB Ratio 1.2 RATIO (0.9-2.4); AST(SGOT) 17 U/L (15-37); Alanine Aminotransfer ALT/SGPT 29 U/L (13-56); Alkaline Phosphatase 63 U/L (45-117); Anion Gap 5 (5-15); BUN 18 mg/dL (7-18); BUN/Creat Ratio 17.8 RATIO (10-20); Calcium,Total 8.1 mg/dL (8.5-10.1); Chloride 110 mmol/L (98-107); Creatinine, Serum 1.01 mg/dL (0.55-1.02); EST Glomerular Filtration Rate 55 mL/min (>60); Est Glom Filt Rate - Afr Amer 67 mL/min (>60); Estimated Creatinine Clearance 38.42 ml/min; Globulin 2.6 g/dL (2.2-4.2); Glucose 60 mg/dL (74-106); Potassium 3.1 mmol/L (3.5-5.1); Protein, Total 5.6 g/dL (6.4-8.2); Sodium Level 144 mmol/L (136-145)
[2020-10-13] MEDS: Ceftriaxone 1 GM/50 ML BAG IV (09:03)
[2020-10-13] MEDS: Multivitamin (Healthy Eyes) Capsule 1 CAP PO (09:32)
[2020-10-13] MEDS: Ferrous Sulfate 325 MG Tablet PO ×2 (09:32→17:26)
[2020-10-13] MEDS: Multivitamins,Therapeutic Tablet 1 TABLET PO (09:33)
[2020-10-13] MEDS: Calcium (Elemental) 500 MG Tablet PO (09:33)
[2020-10-13] MEDS: Fluticasone 0.05% 1 SPRAY NASAL.SRY 2 SPRAY NASAL (09:41)
[2020-10-13] MEDS: predniSONE 20 MG Tablet PO (11:34)
[2020-10-13 11:35] LABS: Bedside Glucose 74 mg/dL (70-110)
--- NOTE | 2020-10-13 12:15 | CASEMGMT ---
ARAVIND ROBBINS assessment: Face to Face with patient for initial transition planning/care coordination assessment. ARAVIND ROBBINS introduced self and role at [facility], pt voices understanding and consents to assessment at this time. Pt is sitting up in chair in no distress at this time. Pt is A/Ox4 at this time and answers all questions appropriately at this time. Care providers, pharmacy, and demographics verified at this time. Presentation: Pt sent by Dr. Florence for low hgb Admitting dx: Acute GI Bleed PCP: Mateus Specialists: [facility] cardio; Chantelle, hematology Preferred Pharmacy: [facility] Insurance: [employer] Prescription Benefit: [employer] Living Will/HPOA: Pt states does not have LW/HPOA and declines AD info at this time. LNOK: Katherin García, daughter; Sam Mcconnell, daughter's sig other Living Arrangements: Pt states her son lives with her in 1 story home and states no concerns at home at this time. Pt states is independent with ADL's. Pt states daughter, Katherin, lives just up the road. Transportation: Pt states daughter drives and states no transportation concerns at this time. DME/HHC: Pt states has a shower chair and grab bars and states no need for any further DME at this time. Pt states no hx of HHC or SNF in the past. Pt states no concerns with going home at time of discharge. Pt states is retired. Pt states does not smoke cigarettes or drink ETOH. Pt states no further concerns/needs at this time. CM to follow for any further discharge planning/needs. Advised pt to ask for CM if any further questions/concerns/needs arise, voices understanding. Pt Goal: Home [place] ARAVIND ROBBINS
[2020-10-13 12:39] LABS: Pathologist Review Reviewed
[2020-10-13 15:00] LABS: Bedside Glucose 120 mg/dL (70-110)
--- NOTE | 2020-10-13 15:27 | PCM.PN.HOSP ---
Patient Problems: Active and Suspected Problems (Last Reviewed 04/08/19 @ 15:18 by Margie Cruz) Blood loss anemia (Acute) Melena (Acute) Community acquired pneumonia (Acute) Subjective: Doing well. Tolerated the prep, plan for scope today Vitals/I&O's: Vital Signs Temp Pulse Resp BP Pulse Ox 97.9 F 92 18 125/43 H 95 10/13/20 11:30 10/13/20 13:42 10/13/20 13:42 10/13/20 11:30 10/13/20 11:30 Oxygen Flow Rate (L/min) 3 Oxygen Delivery Method Room Air Weight: 128 lb 15.985 oz Body Mass Index (BMI) 38.8 Intake and Output for Last 24 Hours 10/11/20 10/12/20 10/13/20 23:59 23:59 23:59 Intake Total 1530 / 1530 1275 / 1275 Output Total 250 / 250 Balance 1280 / 1280 1275 / 1275 General: Alert, Oriented x3, Cooperative, No apparent distress HEENT: Atraumatic, PERRLA, EOMI, Normocephalic Oral: Moist Mucosa Neck: Supple, No JVD Lungs: Normal air movement, No rhonchi, No wheeze, No rales, Diminished Cardiovascular: Regular rate, Regular Rhythm, Normal S1, Normal S2, No murmurs Abdomen: Soft, Non Tender, Non-Distended, No Hepato-splenomegaly Extremities: No edema, Capillary Refill Less than 3 Seconds Skin: No rashes, No breakdown Neurological: Neuro grossly intact, Sensory exam intact to light touch and pain Psych/Mental Status: Normal Affect, Appropriate Microbiology Past 72 Hours 10/12/20 22:30 Stool Stool Occult Blood (AMAURI) - Final Occult Blood Positive 10/12/20 11:43 Mucosa - Nose SARS-CoV-2 Antigen (Rapid) - Final Laboratory Results 10/12/20 10:50: Diff Path Review Reviewed 10/12/20 10:50: Crossmatch See Detail 10/12/20 16:25: COVID-19 ([facility]) Negative 10/12/20 23:55: Hgb 6.8 L, Hct 23.0 L 10/13/20 07:04: WBC 15.7 H, RBC 3.20 L, Hgb 9.1 L, Hct 30.5 L, MCV 95.3, MCH 28.4, MCHC 29.8 L D, RDW Std Deviation 60.2 H, RDW Coeff of Christina 18.6 H, Plt Count 389, MPV 9.1, Immature Gran % (Auto) 1.800 H, Neut % (Auto) 78.6 H, Lymph % (Auto) 12.5 L, [place] % (Auto) 6.2, Eos % (Auto) 0.7, Baso % (Auto) 0.2, Absolute Neuts (auto) 12.4 H, Absolute Lymphs (auto) 1.96, Nucleated RBC % 1.2 10/13/20 07:04: Sodium 144, Potassium 3.1 L, Chloride 110 H, Carbon Dioxide 29.0, Anion Gap 5, BUN 18, Creatinine 1.01, Estim Creat Clear Calc 38.42, Est GFR (MDRD) Af Amer 67, Est GFR (MDRD) Non-Af 55 L, BUN/Creatinine Ratio 17.8, Glucose 60 L, Calcium 8.1 L, Total Bilirubin 0.50, AST 17, ALT 29, Alkaline Phosphatase 63, Total Protein 5.6 L, Albumin 3.0 L, Globulin 2.6, Albumin/Globulin Ratio 1.2 10/13/20 07:04: POC Glucose 70 10/13/20 11:19: POC Glucose 74 10/13/20 14:27: POC Glucose 120 H Current Medications Acetaminophen (Acetaminophen 325 Mg Tablet) 650 mg PO Q6H PRN PRN PRN Reason: Pain Score 1-10/Temp > 100.7 F Albuterol Sulfate (Albuterol 2.5 Mg/3 Ml Vial.Neb.) 2.5 mg INHALATION Q2H PRN PRN PRN Reason: SOB/Wheezing Albuterol/Ipratropium (Ipratropium/Albuterol Sulfate 3 Ml Ampul.Neb) 3 ml INHALATION Q6HWA.RT [facility] Last Admin: 10/13/20 13:42 Dose: 3 ml Documented by: Amlodipine Besylate (Amlodipine 10 Mg Tablet) 5 mg PO BID [facility] Last Admin: 10/13/20 09:42 Dose: Not Given Documented by: Atorvastatin Calcium (Atorvastatin Calcium 40 Mg Tablet) 40 mg PO DAILY [facility] Last Admin: 10/13/20 11:34 Dose: Not Given Documented by: Budesonide (Budesonide Respules 0.5 Mg/2 Ml Ampul.Neb.) 0.5 mg INHALATION Q12H.RT [facility] Calcium Carbonate (Calcium (Elemental) 500 Mg Tablet) 500 mg PO DAILYCM [facility] Last Admin: 10/13/20 09:33 Dose: 500 mg Documented by: Dextrose (Dextrose 50%-Water 25 Gm/50 Ml Disp.Syrin) 0 gm IV X1 PRN; Protocol PRN Reason: Hypoglycemia Ferrous Sulfate (Ferrous Sulfate 325 Mg Tablet) 325 mg PO TIDCM [facility] Last Admin: 10/13/20 11:34 Dose: Not Given Documented by: Fluticasone Propionate (Fluticasone 0.05% 1 [place] Nasal.Sry) 2 spray NASAL DAILY [facility] Last Admin: 10/13/20 09:41 Dose: 2 spray Documented by: Glucagon (Glucagon 1 Mg/Ml Syringe) 1 mg IM .X1 PRN PRN Reason: Hypoglycemia Guaifenesin (Guaifenesin 600 Mg Tablet) 600 mg PO BID [facility] Last Admin: 10/13/20 11:34 Dose: Not Given Documented by: Azithromycin 500 mg/ Dextrose 255 mls @ 250 mls/hr IV Q24 [facility] Last Infusion: 10/13/20 12:30 Dose: Infused Documented by: Ceftriaxone Sodium (Rocephin) 1 gm in 50 mls @ 100 mls/hr IV Q24 [facility] Last Infusion: 10/13/20 09:36 Dose: Infused Documented by: Pantoprazole Sodium 40 mg/ (Sodium Chloride) 110 mls @ 330 mls/hr IV Q12 [facility] Last Infusion: 10/13/20 10:00 Dose: Infused Documented by: Insulin Human Lispro (Insulin Lispro 100 Unit/Ml Insuln.Pen) 0 unit SC ACHS [facility]; Protocol Last Admin: 10/13/20 11:27 Dose: Not Given Documented by: Isosorbide Mononitrate (Isosorbide Mononitrate 30 Mg Tablet) 30 mg PO DAILY [facility] Last Admin: 10/13/20 09:35 Dose: Not Given Documented by: Lisinopril (Lisinopril 10 Mg Tablet) 10 mg PO BID [facility] Last Admin: 10/13/20 09:42 Dose: Not Given Documented by: Metoprolol Tartrate (Metoprolol Tartrate 100 Mg Tablet) 100 mg PO BID [facility] Last Admin: 10/13/20 09:42 Dose: Not Given Documented by: Multivitamins ([facility]it[facility],Therapeutic Tablet) [facility] Admin: 10/13/20 09:33 Dose: 1 tablet Documented by: Multivitamins/Minerals (Multivitamin (Healthy Eyes) Capsule) [facility] Last Admin: 10/13/20 09:32 Dose: 1 capsule Documented by: Ondansetron HCl (Ondansetron 4 Mg/2 Ml Vial) 4 mg IV Q8H PRN PRN PRN Reason: NAUSEA/VOMITING Prednisone (Prednisone 20 Mg Tablet) [facility] Stop: 10/14/20 08:01 Last Admin: 10/13/20 11:34 Dose: 20 mg Documented by: Prednisone (Prednisone 10 Mg Tablet) [facility] Stop: 10/17/20 08:01 Sodium Chloride (0.9% Saline Lock 10 Ml Syringe) 10 - 40 ml IV UD PRN PRN Reason: SALINE FLUSH Last Admin: 10/13/20 09:06 Dose: 10 ml Documented by: STROKE Vital Signs/Narrative: Vital Signs Temp Pulse Resp BP Pulse Ox 10/13/20 13:42 92 18 10/13/20 11:30 97.9 F 80 16 125/43 H 95 Medical Necessity - Tobacco Use Smoking Status: Former smoker Tobacco Use: Non-smoker Assessment/Plan All Active Problems (Last Reviewed 04/08/19 @ 15:18 by Margie Cruz) Blood loss anemia (Acute) Melena (Acute) Community acquired pneumonia (Acute) Syncope (Acute) Acute blood loss anemia (Resolved) GI bleed (Resolved) Hypoxia (Resolved) Pneumonia (Resolved) 1. Acute blood loss anemia secondary to GI bleed of unclear etiology/GERD -She was transfused 2 units and given a dose of Lasix between -Consulted general surgery, appreciate assistance -Continue with IV PPI -She had an EGD in May 2020 which showed gastritis, as well as a colonoscopy which demonstrated diverticulosis and a polyp -Currently n.p.o. and underwent colon prep. Plan will be for scopes today 2. CAD status post stent/ischemic cardiomyopathy/HTN/HLD/PAD -Her stent placed in 2013. We will continue to hold her aspirin and Plavix -Pressure is stable, can continue her home blood pressure medication 3. Community-acquired pneumonia secondary to a gram-positive organism/COPD no acute exacerbation -Continue with Rocephin and azithromycin -Legionella and streptococcal antigen are pending -Both Covid antigen and PCR were negative -Continue with duo nebs and budesonide 4. DM 2 -We will continue to hold her home hypoglycemics -We will monitor with Accu-Cheks AC at bedtime, continue with sliding scale and adjust as necessary DVT: SCDs Inpatient E&M: 61533 Subs Hosp L2
--- NOTE | 2020-10-13 16:21 | OP.CCLET_ITS ---
10/13/2020 Ady Ignacio [address] [place] [address] Re : Upper GI endoscopy procedure for Hazel García Dear Dr. Ignacio This procedure was performed on Tuesday, October 13, 2020. My impressions and recommendations are as follows: Impressions : - Normal first portion of the duodenum and second portion of the duodenum. - No gross lesions in the stomach. - No gross lesions in esophagus. - No specimens collected. Recommendations : - Return patient to [facility] for ongoing care. - Continue present medications. My findings are described in the full procedure note, which is enclosed. If I can be of further assistance, please feel free to contact me at Doctor phone number(s): , Work: . Sincerely, MD Susan Farr MD 10/13/2020 4:21:01 PM This report has been signed electronically.
--- NOTE | 2020-10-13 16:21 | OP.EGD_ITS ---
Patient Name: Hazel García Procedure Date: 10/13/2020 3:18 PM Date of : 1935 Age: 84 Procedure: Upper GI endoscopy Indications: Acute post hemorrhagic anemia Providers: Susan Kwon MD Medicines: See the Anesthesia note for documentation of the administered medications Patient Profile: Refer to note in patient chart for documentation of history and physical. Complications: No immediate complications. Procedure: Pre-Anesthesia Assessment: - see anesthesia note After obtaining informed consent, the endoscope was passed under direct vision. Throughout the procedure, the patient's blood pressure, pulse, and oxygen saturations were monitored continuously. The gastroscope was introduced through the mouth, and advanced to the second part of duodenum. The upper GI endoscopy was accomplished without difficulty. The patient tolerated the procedure well. Scope In: 3:31:24 PM Scope Out: 3:34:42 PM Total Procedure Duration Time 0 hours 3 minutes 18 seconds Findings: The first portion of the duodenum and second portion of the duodenum were normal. No gross lesions were noted in the entire examined stomach. No gross lesions were noted in the entire esophagus. Impression: - Normal first portion of the duodenum and second portion of the duodenum. - No gross lesions in the stomach. - No gross lesions in esophagus. - No specimens collected. Recommendation: - Return patient to [facility] for ongoing care. - Continue present medications. Procedure Code(s): --- Professional --- 00544, Esophagogastroduodenoscopy, flexible, transoral; diagnostic, including collection of specimen(s) by brushing or washing, when performed (separate procedure) Diagnosis Code(s): --- Professional --- D62, Acute posthemorrhagic anemia CPT copyright 2017 [employer]. All rights reserved. The codes documented in this report are preliminary and upon hall porter review may be revised to meet current compliance requirements. MD Susan Farr MD 10/13/2020 4:21:01 PM This report has been signed electronically. Number of Addenda: 0 Note Initiated On: 10/13/2020 3:18 PM
--- NOTE | 2020-10-13 16:29 | OP.COLON_ITS ---
Patient Name: Hazel García Procedure Date: 10/13/2020 3:35 PM Date of : 1935 Age: 84 Procedure: Colonoscopy Indications: Rectal bleeding, Acute post hemorrhagic anemia Providers: Susan Kwon MD Medicines: See the Anesthesia note for documentation of the administered medications Patient Profile: Refer to note in patient chart for documentation of history and physical. Last Colonoscopy: 3 years ago. Complications: No immediate complications. Procedure: Pre-Anesthesia Assessment: - see anesthesia note After I obtained informed consent, the scope was passed under direct vision. Throughout the procedure, the patient's blood pressure, pulse, and oxygen saturations were monitored continuously. The pediatric colonoscope was introduced through the anus and advanced to the cecum, identified by the appendiceal orifice, IC valve and transillumination. The colonoscopy was performed without difficulty. The patient tolerated the procedure well. The quality of the bowel preparation was fair - retained blood in colon - polyps may be missed. Scope In: 3:39:10 PM Scope Withdrawal Time 0 hours 5 minutes 5 seconds Scope Out: 4:03:32 PM Total Procedure Duration Time 0 hours 24 minutes 22 seconds Findings: The perianal and digital rectal examinations were normal. Clotted blood, old blood was found in the entire colon - no definitive source seen in the colon, need to rule out small bowel etiology Impression: - Preparation of the colon was fair but obscured by blood rather than fecal material - Blood in the entire examined colon - no definitive source noted, need to rule out small bowel etiology. - No specimens collected. Recommendation: - Return patient to [facility] for ongoing care. - No recommendation at this time regarding repeat colonoscopy due to age. - Continue present medications. Procedure Code(s): --- Professional --- 71194, Colonoscopy, flexible; diagnostic, including collection of specimen(s) by brushing or washing, when performed (separate procedure) Diagnosis Code(s): --- Professional --- K92.2, Gastrointestinal hemorrhage, unspecified K62.5, Hemorrhage of anus and rectum D62, Acute posthemorrhagic anemia CPT copyright 2017 [employer]. All rights reserved. The codes documented in this report are preliminary and upon market analyst review may be revised to meet current compliance requirements. MD Susan Farr MD 10/13/2020 4:28:43 PM This report has been signed electronically. Number of Addenda: 0 Note Initiated On: 10/13/2020 3:35 PM
--- NOTE | 2020-10-13 16:29 | OP.CCLET_ITS ---
10/13/2020 Ady Ignacio [address] [place] [address] Re : Colonoscopy procedure for Hazel García Dear Dr. Ignacio This procedure was performed on Tuesday, October 13, 2020. My impressions and recommendations are as follows: Impressions : - Preparation of the colon was fair but obscured by blood rather than fecal material - Blood in the entire examined colon - no definitive source noted, need to rule out small bowel etiology. - No specimens collected. Recommendations : - Return patient to [facility] for ongoing care. - No recommendation at this time regarding repeat colonoscopy due to age. - Continue present medications. My findings are described in the full procedure note, which is enclosed. If I can be of further assistance, please feel free to contact me at Doctor phone number(s): , Work: . Sincerely, MD Susan Farr MD 10/13/2020 4:28:43 PM This report has been signed electronically.
[2020-10-13 17:21] LABS: Bedside Glucose 186 mg/dL (70-110)
[2020-10-13] MEDS: Insulin Lispro 100 UNIT/ML INSULN.PEN SC ×2 (17:24→22:49)
[2020-10-13] MEDS: guaiFENesin 600 MG Tablet PO (22:54)
[2020-10-13 23:01] LABS: Bedside Glucose 164 mg/dL (70-110)
[2020-10-14] VITALS (23 sets, daily range): BP systolic 103–146; BP diastolic 35–66; PULSE 75–129; RESP 14–20; TEMP 36.5–37.6; O2SAT 94–100
[2020-10-14 07:06] LABS: Bedside Glucose 105 mg/dL (70-110)
[2020-10-14 07:36] LABS: Absolute Lymphocyte Count 0.93 X10^3/uL (0.83-4.51); Absolute Neutrophil Count 8.2 X10^3/uL (2.0-7.7); Basophil# 0.01 X10^3/uL; Basophil% 0.1 % (0-1); Eosinophil# 0.03 X10^3/uL; Eosinophils% 0.3 % (0-5); Hematocrit 22.1 % (37-47); Hemoglobin 6.6 g/dL (12.0-15.0); Lymphocyte # 0.93 X10^3/ul (4.0); Lymphocyte % 9.4 % (19-41); Mean Corp Hgb Conc 29.9 g/dL (32-36); Mean Corpuscular Hgb 28.7 pg (27.0-32.0); Mean Corpuscular Volume 96.1 fL (81-99); Mean Platelet Vol. 9.5 fl (6.2-12.0); Monocyte# 0.71 X10^3/uL; Monocyte% 7.1 % (0-10); NRBC Flagged by Analyzer 0.2 % (0-5); Neutrophil # 8.15 X10^3/uL (2.7-7.7); Platelet Count 303 K/mm3 (150-450); RBC Distribution Width CV 18.1 % (11.6-14.6); RBC Distribution Width SD 60.3 fl (35.1-43.9); White Blood Count 9.9 K/mm3 (4.4-11.0)
[2020-10-14] MEDS: Ipratropium/Albuterol Sulfate 3 ML AMPUL.NEB INHALATION ×3 (07:43→19:29)
[2020-10-14 07:52] LABS: Anion Gap 5 (5-15); BUN 11 mg/dL (7-18); BUN/Creat Ratio 11.7 RATIO (10-20); Calcium,Total 7.4 mg/dL (8.5-10.1); Chloride 109 mmol/L (98-107); Creatinine, Serum 0.94 mg/dL (0.55-1.02); EST Glomerular Filtration Rate 60 mL/min (>60); Est Glom Filt Rate - Afr Amer 73 mL/min (>60); Estimated Creatinine Clearance 41.07 ml/min; Glucose 92 mg/dL (74-106); Sodium Level 142 mmol/L (136-145)
[2020-10-14] MEDS: Ceftriaxone 1 GM/50 ML BAG IV (08:41)
[2020-10-14] MEDS: Ferrous Sulfate 325 MG Tablet PO ×3 (08:43→16:03)
[2020-10-14] MEDS: Multivitamin (Healthy Eyes) Capsule 1 CAP PO (08:44)
[2020-10-14] MEDS: Multivitamins,Therapeutic Tablet 1 TABLET PO (08:44)
[2020-10-14] MEDS: Calcium (Elemental) 500 MG Tablet PO (08:44)
[2020-10-14] MEDS: Fluticasone 0.05% 1 SPRAY NASAL.SRY 2 SPRAY NASAL (08:45)
[2020-10-14] MEDS: predniSONE 20 MG Tablet PO (08:45)
[2020-10-14] MEDS: guaiFENesin 600 MG Tablet PO ×2 (08:46→21:56)
[2020-10-14] MEDS: Atorvastatin Calcium 40 MG Tablet PO (08:46)
[2020-10-14] MEDS: 0.9% Saline Lock 10 ML Syringe IV ×2 (10:20→21:54)
--- NOTE | 2020-10-14 11:53 | PN_ITS ---
Patient Problems: Active and Suspected Problems (Last Reviewed 04/08/19 @ 15:18 by Margie Cruz) Blood loss anemia (Acute) Melena (Acute) Community acquired pneumonia (Acute) Subjective: Had a bloody BM this morning but not as bad as it had been. Hemoglobin came back this morning at 6.6 Vitals/I&O's: Vital Signs Temp Pulse Resp BP Pulse Ox 97.8 F 101 H 14 112/41 L 100 10/14/20 11:32 10/14/20 11:32 10/14/20 11:32 10/14/20 11:32 10/14/20 11:32 Oxygen Flow Rate (L/min) 2 Oxygen Delivery Method Room Air Weight: 128 lb 11.999 oz Body Mass Index (BMI) 38.8 Intake and Output for Last 24 Hours 10/12/20 10/13/20 10/14/20 23:59 23:59 23:59 Intake Total 1530 / 1530 1385 / 1505 535 / 535 Output Total 250 / 250 200 / 200 Balance 1280 / 1280 1385 / 1305 335 / 335 General: Alert, Oriented x3, Cooperative, No apparent distress HEENT: Atraumatic, PERRLA, EOMI, Normocephalic Oral: Moist Mucosa Neck: Supple, No JVD Lungs: Normal air movement, No rhonchi, No wheeze, No rales, Diminished Cardiovascular: Regular rate, Regular Rhythm, Normal S1, Normal S2, No murmurs Abdomen: Soft, Non Tender, Non-Distended, No Hepato-splenomegaly Extremities: No edema, Capillary Refill Less than 3 Seconds Skin: No rashes, No breakdown Neurological: Neuro grossly intact, Sensory exam intact to light touch and pain Psych/Mental Status: Normal Affect, Appropriate Microbiology Past 72 Hours 10/13/20 18:30 Urine, Clean Catch Legionella Antigen - Final 10/13/20 18:30 Urine, Clean Catch Streptococcus pneumoniae Antigen (M - Final 10/12/20 22:30 Stool Stool Occult Blood (AMAURI) - Final Occult Blood Positive 10/12/20 11:43 Mucosa - Nose SARS-CoV-2 Antigen (Rapid) - Final Laboratory Results 10/12/20 10:50: Diff Path Review Reviewed 10/12/20 10:50: Crossmatch See Detail 10/12/20 10:50: Crossmatch See Detail 10/13/20 14:27: POC Glucose 120 H 10/13/20 17:14: POC Glucose 186 H 10/13/20 22:48: POC Glucose 164 H 10/14/20 06:40: WBC 9.9, RBC 2.30 L, Hgb 6.6 L, Hct 22.1 L, MCV 96.1, MCH 28.7, MCHC 29.9 L, RDW Std Deviation 60.3 H, RDW Coeff of Christina 18.1 H, Plt Count 303, MPV 9.5, Immature Gran % (Auto) 1.100 H, Neut % (Auto) 82.0 H, Lymph % (Auto) 9.4 L, [place] % (Auto) 7.1, Eos % (Auto) 0.3, Baso % (Auto) 0.1, Absolute Neuts (auto) 8.2 H, Absolute Lymphs (auto) 0.93, Nucleated RBC % 0.2 10/14/20 06:40: Sodium 142, Potassium 3.0 L, Chloride 109 H, Carbon Dioxide 28.0, Anion Gap 5, BUN 11, Creatinine 0.94, Estim Creat Clear Calc 41.07, Est GFR (MDRD) Af Amer 73, Est GFR (MDRD) Non-Af 60, BUN/Creatinine Ratio 11.7, Glucose 92, Calcium 7.4 L 10/14/20 06:55: POC Glucose 105 Current Medications Acetaminophen (Acetaminophen 325 Mg Tablet) 650 mg PO Q6H PRN PRN PRN Reason: Pain Score 1-10/Temp > 100.7 F Albuterol Sulfate (Albuterol 2.5 Mg/3 Ml Vial.Neb.) 2.5 mg INHALATION Q2H PRN PRN PRN Reason: SOB/Wheezing Albuterol/Ipratropium (Ipratropium/Albuterol Sulfate 3 Ml Ampul.Neb) 3 ml INHALATION Q6HWA.RT [facility] Last Admin: 10/14/20 07:43 Dose: 3 ml Documented by: Amlodipine Besylate (Amlodipine 10 Mg Tablet) 5 mg PO BID [facility] Last Admin: 10/14/20 09:02 Dose: Not Given Documented by: Atorvastatin Calcium (Atorvastatin Calcium 40 Mg Tablet) 40 mg PO DAILY [facility] Last Admin: 10/14/20 08:46 Dose: 40 mg Documented by: Budesonide (Budesonide Respules 0.5 Mg/2 Ml Ampul.Neb.) 0.5 mg INHALATION Q12H.RT [facility] Calcium Carbonate (Calcium (Elemental) 500 Mg Tablet) 500 mg PO DAILYCM [facility] Last Admin: 10/14/20 08:44 Dose: 500 mg Documented by: Dextrose (Dextrose 50%-Water 25 Gm/50 Ml Disp.Syrin) 0 gm IV X1 PRN; Protocol PRN Reason: Hypoglycemia Ferrous Sulfate (Ferrous Sulfate 325 Mg Tablet) 325 mg PO TIDCM [facility] Last Admin: 10/14/20 11:49 Dose: 325 mg Documented by: Fluticasone Propionate (Fluticasone 0.05% 1 [place] Nasal.Sry) 2 spray NASAL DAILY [facility] Last Admin: 10/14/20 08:45 Dose: 2 spray Documented by: Furosemide (Furosemide 20 Mg/2 Ml Vial) 20 mg IV X1 [facility] Stop: 10/14/20 23:59 Glucagon (Glucagon 1 Mg/Ml Syringe) 1 mg IM .X1 PRN PRN Reason: Hypoglycemia Guaifenesin (Guaifenesin 600 Mg Tablet) 600 mg PO BID [facility] Last Admin: 10/14/20 08:46 Dose: 600 mg Documented by: Azithromycin 500 mg/ Dextrose 255 mls @ 250 mls/hr IV Q24 [facility] Last Infusion: 10/14/20 10:20 Dose: Infused Documented by: Ceftriaxone Sodium (Rocephin) 1 gm in 50 mls @ 100 mls/hr IV Q24 [facility] Last Infusion: 10/14/20 09:22 Dose: Infused Documented by: Pantoprazole Sodium 40 mg/ (Sodium Chloride) 110 mls @ 330 mls/hr IV Q12 [facility] Last Infusion: 10/14/20 09:53 Dose: Infused Documented by: Insulin Human Lispro (Insulin Lispro 100 Unit/Ml Insuln.Pen) 0 unit SC ACHS [facility]; Protocol Last Admin: 10/14/20 11:44 Dose: Not Given Documented by: Isosorbide Mononitrate (Isosorbide Mononitrate 30 Mg Tablet) 30 mg PO DAILY [facility] Last Admin: 10/14/20 09:01 Dose: Not Given Documented by: Lisinopril (Lisinopril 10 Mg Tablet) 10 mg PO BID [facility] Last Admin: 10/14/20 09:02 Dose: Not Given Documented by: Metoprolol Tartrate (Metoprolol Tartrate 100 Mg Tablet) 100 mg PO BID [facility] Last Admin: 10/14/20 09:02 Dose: Not Given Documented by: Multivitamins ([facility],Therapeutic Tablet) [facility] Admin: 10/14/20 08:44 Dose: 1 tablet Documented by: Multivitamins/Minerals (Multivitamin (Healthy Eyes) Capsule) [facility] capsule [facility] Last Admin: 10/14/20 08:44 Dose: 1 capsule Documented by: Ondansetron HCl (Ondansetron 4 Mg/2 Ml Vial) 4 mg IV Q8H PRN PRN PRN Reason: NAUSEA/VOMITING Prednisone (Prednisone 10 Mg Tablet) [facility] Stop: 10/17/20 08:01 Sodium Chloride (0.9% Saline Lock 10 Ml Syringe) 10 - 40 ml IV UD PRN PRN Reason: SALINE FLUSH Last Admin: 10/14/20 10:20 Dose: 30 ml Documented by: STROKE Vital Signs/Narrative: Vital Signs Temp Pulse Resp BP Pulse Ox 10/14/20 11:32 97.8 F 101 H 14 112/41 L 100 10/14/20 10:32 98.5 F 106 H 19 H 107/35 L 96 10/14/20 10:17 98.3 F 122 H 18 125/44 H 100 10/14/20 08:58 98.1 F 97 20 H 114/35 L 97 Medical Necessity - Tobacco Use Smoking Status: Former smoker Tobacco Use: Non-smoker Assessment/Plan All Active Problems (Last Reviewed 04/08/19 @ 15:18 by Margie Cruz) Blood loss anemia (Acute) Melena (Acute) Community acquired pneumonia (Acute) Syncope (Acute) Acute blood loss anemia (Resolved) GI bleed (Resolved) Hypoxia (Resolved) Pneumonia (Resolved) 1. Acute blood loss anemia secondary to GI bleed of unclear etiology/GERD -She was transfused 2 units and given a dose of Lasix between, yesterday prior to procedures her hemoglobin was 9.1, this morning is dropped to 6.6. Will transfuse another 2 units with Lasix in between -Consulted general surgery, appreciate assistance -Continue with IV PPI -She had an EGD in May 2020 which showed gastritis, as well as a colonoscopy which demonstrated diverticulosis and a polyp -EGD was unremarkable on this admission. And the colon was full of blood but no active bleeding therefore there is a concern for a small bowel bleed. If her bleeding does not stop may need to be transferred to an institution that can manage her small bowel hemorrhage 2. CAD status post stent/ischemic cardiomyopathy/HTN/HLD/PAD -Her stent placed in 2013. We will continue to hold her aspirin and Plavix -Pressure is stable, can continue her home blood pressure medication 3. Community-acquired pneumonia secondary to a gram-positive organism/COPD no acute exacerbation -Continue with Rocephin and azithromycin -Legionella and streptococcal antigen are negative -Both Covid antigen and PCR were negative -Continue with duo nebs and budesonide 4. DM 2 -We will continue to hold her home hypoglycemics -We will monitor with Accu-Cheks AC at bedtime, continue with sliding scale and adjust as necessary DVT: SCDs Inpatient E&M: 76375 Subs Hosp L2
[2020-10-14 12:15] LABS: Bedside Glucose 114 mg/dL (70-110)
[2020-10-14] MEDS: Furosemide 20 MG/2 ML VIAL IV (14:33)
[2020-10-14] MEDS: Insulin Lispro 100 UNIT/ML INSULN.PEN SC (16:03)
[2020-10-14 16:10] LABS: Bedside Glucose 222 mg/dL (70-110)
[2020-10-14] MEDS: Metoprolol Tartrate 100 MG Tablet PO (18:03)
[2020-10-14] MEDS: Lisinopril 10 MG Tablet PO (21:56)
[2020-10-14] MEDS: amLODIPine 10 MG Tablet 5 MG PO (21:56)
[2020-10-14 22:51] LABS: Bedside Glucose 116 mg/dL (70-110)
[2020-10-15] VITALS (8 sets, daily range): BP systolic 120–147; BP diastolic 43–54; PULSE 78–92; RESP 18–20; TEMP 36.8–37.1; O2SAT 93–96
[2020-10-15 06:49] LABS: Absolute Neutrophil Count 7.9 X10^3/uL (2.0-7.7); Basophil# 0.01 X10^3/uL; Basophil% 0.1 % (0-1); Eosinophil# 0.17 X10^3/uL; Eosinophils% 1.6 % (0-5); Hematocrit 27.9 % (37-47); Hemoglobin 8.7 g/dL (12.0-15.0); Lymphocyte % 13.4 % (19-41); Mean Corp Hgb Conc 31.2 g/dL (32-36); Mean Corpuscular Hgb 28.9 pg (27.0-32.0); Mean Corpuscular Volume 92.7 fL (81-99); Mean Platelet Vol. 9.1 fl (6.2-12.0); Monocyte# 0.81 X10^3/uL; Monocyte% 7.8 % (0-10); NRBC Flagged by Analyzer 0 % (0-5); Neutrophil # 7.94 X10^3/uL (2.7-7.7); Neutrophil % 76.2 % (47-70); Platelet Count 266 K/mm3 (150-450); RBC Distribution Width CV 17.8 % (11.6-14.6); RBC Distribution Width SD 57.4 fl (35.1-43.9); Red Blood Count 3.01 M/mm3 (4.2-5.4); White Blood Count 10.4 K/mm3 (4.4-11.0)
[2020-10-15 06:51] LABS: Bedside Glucose 86 mg/dL (70-110)
[2020-10-15 07:17] LABS: Anion Gap 5 (5-15); BUN 8 mg/dL (7-18); BUN/Creat Ratio 8.6 RATIO (10-20); Calcium,Total 7.8 mg/dL (8.5-10.1); Chloride 110 mmol/L (98-107); Creatinine, Serum 0.93 mg/dL (0.55-1.02); EST Glomerular Filtration Rate 61 mL/min (>60); Est Glom Filt Rate - Afr Amer 74 mL/min (>60); Estimated Creatinine Clearance 41.89 ml/min; Glucose 80 mg/dL (74-106); Magnesium 2.1 mg/dL (1.6-2.6); Phosphorus 3.2 mg/dL (2.5-4.9); Potassium 3.9 mmol/L (3.5-5.1); Sodium Level 142 mmol/L (136-145)
[2020-10-15] MEDS: Ipratropium/Albuterol Sulfate 3 ML AMPUL.NEB INHALATION ×2 (07:22→13:26)
[2020-10-15] MEDS: amLODIPine 10 MG Tablet 5 MG PO (10:22)
[2020-10-15] MEDS: Metoprolol Tartrate 100 MG Tablet PO (10:22)
[2020-10-15] MEDS: Lisinopril 10 MG Tablet PO (10:22)
[2020-10-15] MEDS: Multivitamin (Healthy Eyes) Capsule 1 CAP PO (10:22)
[2020-10-15] MEDS: Multivitamins,Therapeutic Tablet 1 TABLET PO (10:23)
[2020-10-15] MEDS: Ferrous Sulfate 325 MG Tablet PO ×2 (10:23→12:38)
[2020-10-15] MEDS: Calcium (Elemental) 500 MG Tablet PO (10:23)
[2020-10-15] MEDS: Isosorbide Mononitrate 30 MG Tablet PO (10:23)
[2020-10-15] MEDS: predniSONE 10 MG Tablet PO (10:24)
[2020-10-15] MEDS: guaiFENesin 600 MG Tablet PO (10:25)
[2020-10-15] MEDS: Atorvastatin Calcium 40 MG Tablet PO (10:26)
[2020-10-15] MEDS: Fluticasone 0.05% 1 SPRAY NASAL.SRY 2 SPRAY NASAL (10:26)
[2020-10-15] MEDS: Ceftriaxone 1 GM/50 ML BAG IV (10:40)
--- NOTE | 2020-10-15 11:10 | PCM.PN.SRG ---
Patient Problems: Active and Suspected Problems (Last Reviewed 04/08/19 @ 15:18 by Margie Cruz) Blood loss anemia (Acute) Melena (Acute) Community acquired pneumonia (Acute) Subjective: Patient denies abdominal pain - Physical Exam Vitals/I&O's: Vital Signs Temp Pulse Resp BP Pulse Ox 98.2 F 89 20 H 120/43 L 96 10/15/20 10:11 10/15/20 10:22 10/15/20 10:11 10/15/20 10:11 10/15/20 10:11 Oxygen Flow Rate (L/min) 2 Oxygen Delivery Method Room Air Weight: 58.922 kg Body Mass Index (BMI) 38.8 Intake and Output for Last 24 Hours 10/13/20 10/14/20 10/15/20 23:59 23:59 23:59 Intake Total 1385 / 1505 2545 / 2545 500 / 500 Output Total 1900 / 1900 500 / 500 Balance 1385 / 1305 645 / 645 0 / 0 General: Alert, Oriented x3 HEENT: Atraumatic Oral: Moist Mucosa Neck: Supple Lungs: Normal air movement Microbiology Past 72 Hours 10/13/20 18:30 Urine, Clean Catch Legionella Antigen - Final 10/13/20 18:30 Urine, Clean Catch Streptococcus pneumoniae Antigen (M - Final 10/12/20 22:30 Stool Stool Occult Blood (AMAURI) - Final Occult Blood Positive 10/12/20 11:43 Mucosa - Nose SARS-CoV-2 Antigen (Rapid) - Final Laboratory Results 10/12/20 10:50: Crossmatch See Detail 10/14/20 11:41: POC Glucose 114 H 10/14/20 16:02: POC Glucose 222 H 10/14/20 22:42: POC Glucose 116 H 10/15/20 06:10: WBC 10.4, RBC 3.01 L, Hgb 8.7 L, Hct 27.9 L, MCV 92.7, MCH 28.9, MCHC 31.2 L, RDW Std Deviation 57.4 H, RDW Coeff of Christina 17.8 H, Plt Count 266, MPV 9.1, Immature Gran % (Auto) 0.900, Neut % (Auto) 76.2 H, Lymph % (Auto) 13.4 L, [place] % (Auto) 7.8, Eos % (Auto) 1.6, Baso % (Auto) 0.1, Absolute Neuts (auto) 7.9 H, Absolute Lymphs (auto) 1.40, Nucleated RBC % 0 10/15/20 06:10: Sodium 142, Potassium 3.9, Chloride 110 H, Carbon Dioxide 27.0, Anion Gap 5, BUN 8, Creatinine 0.93, Estim Creat Clear Calc 41.89, Est GFR (MDRD) Af Amer 74, Est GFR (MDRD) Non-Af 61, BUN/Creatinine Ratio 8.6 L, Glucose 80, Calcium 7.8 L, Phosphorus 3.2, Magnesium 2.1 10/15/20 06:46: POC Glucose 86 Current Medications Acetaminophen (Acetaminophen 325 Mg Tablet) 650 mg PO Q6H PRN PRN PRN Reason: Pain Score 1-10/Temp > 100.7 F Albuterol Sulfate (Albuterol 2.5 Mg/3 Ml Vial.Neb.) 2.5 mg INHALATION Q2H PRN PRN PRN Reason: SOB/Wheezing Albuterol/Ipratropium (Ipratropium/Albuterol Sulfate 3 Ml Ampul.Neb) 3 ml INHALATION Q6HWA.RT [facility] Last Admin: 10/15/20 07:22 Dose: 3 ml Documented by: Amlodipine Besylate (Amlodipine 10 Mg Tablet) 5 mg PO BID [facility] Last Admin: 10/15/20 10:22 Dose: 5 mg Documented by: Atorvastatin Calcium (Atorvastatin Calcium 40 Mg Tablet) 40 mg PO DAILY [facility] Last Admin: 10/15/20 10:26 Dose: 40 mg Documented by: Budesonide (Budesonide Respules 0.5 Mg/2 Ml Ampul.Neb.) 0.5 mg INHALATION Q12H.RT [facility] Calcium Carbonate (Calcium (Elemental) 500 Mg Tablet) 500 mg PO DAILYCM [facility] Last Admin: 10/15/20 10:23 Dose: 500 mg Documented by: Dextrose (Dextrose 50%-Water 25 Gm/50 Ml Disp.Syrin) 0 gm IV X1 PRN; Protocol PRN Reason: Hypoglycemia Ferrous Sulfate (Ferrous Sulfate 325 Mg Tablet) 325 mg PO TIDCM [facility] Last Admin: 10/15/20 10:23 Dose: 325 mg Documented by: Fluticasone Propionate (Fluticasone 0.05% 1 [place] Nasal.Sry) 2 spray NASAL DAILY [facility] Last Admin: 10/15/20 10:26 Dose: 2 spray Documented by: Glucagon (Glucagon 1 Mg/Ml Syringe) 1 mg IM .X1 PRN PRN Reason: Hypoglycemia Guaifenesin (Guaifenesin 600 Mg Tablet) 600 mg PO BID [facility] Last Admin: 10/15/20 10:25 Dose: 600 mg Documented by: Azithromycin 500 mg/ Dextrose 255 mls @ 250 mls/hr IV Q24 [facility] Last Admin: 10/15/20 10:41 Dose: 250 mls/hr Documented by: Ceftriaxone Sodium (Rocephin) 1 gm in 50 mls @ 100 mls/hr IV Q24 [facility] Last Admin: 10/15/20 10:40 Dose: 100 mls/hr Documented by: Pantoprazole Sodium 40 mg/ (Sodium Chloride) 110 mls @ 330 mls/hr IV Q12 [facility] Last Infusion: 10/14/20 22:14 Dose: Infused Documented by: Insulin Human Lispro (Insulin Lispro 100 Unit/Ml Insuln.Pen) 0 unit SC [facility]; Protocol Last Admin: 10/15/20 06:51 Dose: Not Given Documented by: Isosorbide Mononitrate (Isosorbide Mononitrate 30 Mg Tablet) 30 mg PO DAILY [facility] Last Admin: 10/15/20 10:23 Dose: 30 mg Documented by: Lisinopril (Lisinopril 10 Mg Tablet) 10 mg PO BID [facility] Last Admin: 10/15/20 10:22 Dose: 10 mg Documented by: Metoprolol Tartrate (Metoprolol Tartrate 100 Mg Tablet) 100 mg PO BID [facility] Last Admin: 10/15/20 10:22 Dose: 100 mg Documented by: Multivitamins (Multivitamins,Therapeutic Tablet) [facility] Admin: 10/15/20 10:23 Dose: 1 tablet Documented by: Multivitamins/Minerals (Multivitamin (Healthy Eyes) Capsule) [facility] Last Admin: 10/15/20 10:22 Dose: 1 capsule Documented by: Ondansetron HCl (Ondansetron 4 Mg/2 Ml Vial) 4 mg IV Q8H PRN PRN PRN Reason: NAUSEA/VOMITING Prednisone (Prednisone 10 Mg Tablet) [facility] Stop: 10/17/20 08:01 Last Admin: 10/15/20 10:24 Dose: 10 mg Documented by: Sodium Chloride (0.9% Saline Lock 10 Ml Syringe) 10 - 40 ml IV UD PRN PRN Reason: SALINE FLUSH Last Admin: 10/14/20 21:54 Dose: 10 ml Documented by: Medical Necessity - Tobacco Use Smoking Status: Former smoker Tobacco Use: Non-smoker Assessment/Plan All Active Problems (Last Reviewed 04/08/19 @ 15:18 by Margie Cruz) Blood loss anemia (Acute) Melena (Acute) Community acquired pneumonia (Acute) Syncope (Acute) Acute blood loss anemia (Resolved) GI bleed (Resolved) Hypoxia (Resolved) Pneumonia (Resolved) impression: anemia due to acute blood loss somewhere in GI tract - suspect small bowel Plan: Colonoscopy and EGD on Friday revealed no definitive source of GI bleeding, suspect small bowel etiology. I have no further surgical options to offer this patient. Discussed with Dr. Keller
[2020-10-15 12:05] LABS: Bedside Glucose 93 mg/dL (70-110)
[2020-10-15 13:07] LABS: Hematocrit 29.8 % (37-47); Hemoglobin 9.2 g/dL (12.0-15.0)
--- NOTE | 2020-10-15 13:39 | DCINST_ITS ---
- Discharge Diagnoses Current Active Problems: Current Active and Chronic Problems (Last Reviewed 04/08/19 @ 15:18 by Margie Cruz) Blood loss anemia (Acute) Melena (Acute) Community acquired pneumonia (Acute) CHF (congestive heart failure) (Chronic) Ischemic cardiomyopathy (Chronic) CKD (chronic kidney disease) (Chronic) Type 2 diabetes mellitus (Chronic) EKAETRINA (obstructive sleep apnea) (Chronic) Essential hypertension (Chronic) Atherosclerotic heart disease of [place] coronary artery without angina pectoris (Chronic) St[facility] to [facility] at [facility]; COPD (chronic obstructive pulmonary disease) (Chronic) You will use the following diet at home:: Cardiac Your food should be the consistency of: Regular Your liquids should be the consistency of: Regular/Thin Discharge Activity: Return to Normal Activity Call your doctor if you observe: Fever of 101 or Higher, Shortness of breath, Dizziness, Fainting spells, Swelling in the ankles, Chest pain, Increased palpitations (irregular heartbeat) Additional Instructions: Please follow-up with your primary care physician in 3 to 5 days after discharge to obtain CBC to monitor your hemoglobin. Also because of the bleeding which is likely in your small intestine, I recommend that you hold your aspirin and Plavix until you follow-up with your doctor and are given the okay to resume. You will also need to complete 2 more days of an oral antibiotic for the community-acquired pneumonia as well. Allergies/Adverse Reactions: Allergies acetaminophen [From Tylenol] Allergy (Verified 10/12/20 10:28) Hives iodine Allergy (Verified 10/12/20 10:28) Hives nabumetone Allergy (Verified 10/12/20 10:28) Unknown pregabalin [From Lyrica] Allergy (Verified 10/12/20 10:28) Unknown albuterol [From ProAir HFA] Adverse Reaction (Verified 10/12/20 10:28) Other Medications to take at Discharge Lansoprazole [Prevacid] 30 mg PO DAILY 10/27/14 Multivitamins,Therapeutic [Multivitamin] 1 tab PO DAILY 10/27/14 Nitroglycerin (INPATIENT USE) [Nitrostat] 0.4 mg SUBLINGUAL Q5M PRN 10/27/14 Vit A/Vit C/Vit E/Zinc/Copper [Preservision Areds Softgel] 1 ea PO BID 10/27/14 Calcium Carbonate [Calcium] 600 mg PO DAILY 02/04/17 Ferrous Sulfate [Iron Supplement] 325 mg PO TID 07/08/17 albuterol sulfate 90 mcg/actuation aerosol inhaler 2 puff INHALATION Q6H PRN 04/07/19 amlodipine 10 mg tablet 5 mg PO BID 04/07/19 fluticasone propionate 50 mcg/actuation nasal spray,suspension 2 spray INTRANASAL DAILY 04/07/19 tiotropium bromide 2.5 mcg/actuation mist for inhalation 2 puff INHALATION DAILY 04/07/19 metoprolol tartrate 50 mg tablet 100 mg PO BID tab 04/08/19 lisinopril 20 mg tablet 10 mg PO BID tab 04/21/20 Atorvastatin Calcium 40 mg PO QHS 10/12/20 Furosemide [Lasix] 20 mg PO DAILY 10/12/20 Glimepiride 1 mg PO DAILY 10/12/20 Guaifenesin [Mucinex] 600 mg PO BID 10/12/20 Isosorbide Mononitrate [Isosorbide Mononitrate ER] 30 mg PO DAILY 10/12/20 Mometasone/Formoterol [Dulera 200 Mcg/5 Mcg Inhaler] 1 puff IH BID 10/12/20 Prednisone See Taper PO DAILY 10/12/20 Aspirin [Low Dose Aspirin EC] 81 mg PO DAILY #0 10/15/20 Cefdinir [Omnicef [equiv]] 300 mg PO Q12H #4 cap 10/15/20 Clopidogrel Bisulfate [Plavix] 75 mg PO DAILY #0 10/15/20 The following prescriptions were given: Cefdinir [Omnicef [equiv]] 300 mg PO Q12H #4 cap Transmission Status: Pending to [employer] [id number] Primary Care Physician: Ady Ignacio MD [Primary Care Provider] - Please follow up with your Primary Care Physician in: 3-5 days Test Results: Test results from this visit will be discussed in further detail at your follow- up appointment, if applicable. Please Follow Up With: Cardiology
--- NOTE | 2020-10-15 15:30 | PCM.DC.SUM ---
Discharge Date and Diagnosis - Problem List Patient Problems: Active and Suspected Problems (Last Reviewed 04/08/19 @ 15:18 by Margie Cruz) Blood loss anemia (Acute) Melena (Acute) Community acquired pneumonia (Acute) Date of Admission: 10/12/20 Date of Discharge: 10/15/20 - Primary Discharge Diagnosis Acute Problems: Active Problems (Last Reviewed 04/08/19 @ 15:18 by Margie Cruz) Blood loss anemia (Acute) Melena (Acute) Community acquired pneumonia (Acute) - Secondary Discharge Diagnosis Chronic Problems: Chronic Problems (Last Reviewed 04/08/19 @ 15:18 by Margie Cruz) CHF (congestive heart failure) (Chronic) Pulmonary hypertension (Chronic) Ischemic cardiomyopathy (Chronic) CKD (chronic kidney disease) (Chronic) Type 2 diabetes mellitus (Chronic) EKATERINA (obstructive sleep apnea) (Chronic) Essential hypertension (Chronic) Atherosclerotic heart disease of [place] coronary artery without angina pectoris (Chronic) Stenting to LCx at [facility]; Mixed hyperlipidemia (Chronic) COPD (chronic obstructive pulmonary disease) (Chronic) Hospital Course and Treatment Imaging Results: Clinical Impression(s) from Imaging Studies Chest X-Ray 10/12/20 11:29 IMPRESSION: New right upper and right lower lobe infiltrates. Stable scarring at the left lung base. Electronically Signed: Guillermo Paulino, at 12:11 EST , Service support , Consults: General Surgery Operations: None Procedures: Colonoscopy, EGD Summary of Care Provided: Per HPI: The patient is a 84 year old F with past medical history of CAD/ischemic cardiomyopathy, PAD, COPD, type II DM who comes in with an abnormal blood work. Patient had blood work done with her oncologist and was called to come into the hospital. She reportedly has melena stools and has been coughing up some blood. Patient is a poor historian and is reluctant to give details. She came to the hospital at the insistence of her daughter. At the time of being seen, patient denied any chest pain or dizziness or palpitations or syncope. She was questioning why she was in the hospital. Her vitals in the ED showed temperature of 98F, heart rate 90, blood pressure 132/44, respiratory rate was 18, SPO2 is 94% on room air. BC count 13.9, hemoglobin 5.1, platelet count 373, INR 1.2, sodium 144, calcium 3.9, chloride 110, bicarbonate 25, BUN 31, creatinine 1.3, LFTs were unremarkable. COVID-19 test was negative. Admitting chest x-ray showed new right upper and right lower lobe infiltrates Hospital Course: 1. Acute blood loss anemia secondary to GI bleed of unclear etiology/GERD -She was transfused 2 units and given a dose of Lasix between, yesterday prior to procedures her hemoglobin was 9.1, this morning is dropped to 6.6. Will transfuse another 2 units with Lasix in between -Consulted general surgery, appreciate assistance -Continue with IV PPI -She had an EGD in May 2020 which showed gastritis, as well as a colonoscopy which demonstrated diverticulosis and a polyp -EGD was unremarkable on this admission. And the colon was full of blood but no active bleeding therefore there is a concern for a small bowel bleed. -She was transfused a total of 4 units during her admission. Her hemoglobin on the day of discharge in the morning was 8.7. It was rechecked in the afternoon and was 9.2. Because of this and her age and the risk for Covid exposure. We plan for discharge home with iron supplementation. Discussed with her the plan for discharge and she expressed understanding of the risk benefits of going home. Unfortunately given the fact that she has a likely small bowel source, I would recommend that if she represented to the ER with a GI bleed she will likely need to be transferred to a higher institution that would be able to examine the small intestine. 2. CAD status post stent/ischemic cardiomyopathy/HTN/HLD/PAD -Her stent placed in 2013. We will continue to hold her aspirin and Plavix. I recommend that she hold her aspirin Plavix until she also follows up with her PCP or cardiology, her stents were placed in 2013 so we do have the ability to wait a little bit to restart them if necessary. -Pressure is stable, can continue her home blood pressure medication 3. Community-acquired pneumonia secondary to a gram-positive organism/COPD no acute exacerbation -She completed her azithromycin course here in the hospital with 3 doses. She will need 2 more days of Omnicef to complete the rest of her antibiotic course -Legionella and streptococcal antigen are negative -Both Covid antigen and PCR were negative -Continue with duo nebs and budesonide 4. DM 2 -We will continue to hold her home hypoglycemics -We will monitor with Accu-Cheks AC at bedtime, continue with sliding scale and adjust as necessary Patient Problems: Active and Suspected Problems (Last Reviewed 04/08/19 @ 15:18 by Margie Cruz) Blood loss anemia (Acute) Melena (Acute) Community acquired pneumonia (Acute) - Physical Exam Vitals/I&O's: Vital Signs Temp Pulse Resp BP Pulse Ox 98.2 F 92 18 120/43 L 96 10/15/20 10:11 10/15/20 13:30 10/15/20 13:30 10/15/20 10:11 10/15/20 10:11 Oxygen Flow Rate (L/min) 2 Oxygen Delivery Method Room Air Weight: 129 lb 14.4 oz Body Mass Index (BMI) 38.8 Intake and Output for Last 24 Hours 10/13/20 10/14/20 10/15/20 23:59 23:59 23:59 Intake Total 1385 / 1505 2545 / 2545 1395 / 1395 Output Total 1900 / 1900 500 / 500 Balance 1385 / 1305 645 / 645 895 / 895 General: Alert, Oriented x3, Cooperative, No apparent distress HEENT: Atraumatic, PERRLA, EOMI, Normocephalic Oral: Moist Mucosa Neck: Supple, No JVD Lungs: Normal air movement, No rhonchi, No wheeze, No rales, Diminished Cardiovascular: Regular rate, Regular Rhythm, Normal S1, Normal S2, No murmurs Abdomen: Soft, Non Tender, Non-Distended, No Hepato-splenomegaly Extremities: No edema, Capillary Refill Less than 3 Seconds Skin: No rashes, No breakdown Neurological: Neuro grossly intact, Sensory exam intact to light touch and pain Psych/Mental Status: Normal Affect, Appropriate Microbiology Past 72 Hours 10/13/20 18:30 Urine, Clean Catch Legionella Antigen - Final 10/13/20 18:30 Urine, Clean Catch Streptococcus pneumoniae Antigen (M - Final 10/12/20 22:30 Stool Stool Occult Blood (AMAURI) - Final Occult Blood Positive 10/12/20 11:43 Mucosa - Nose SARS-CoV-2 Antigen (Rapid) - Final Laboratory Results 10/12/20 10:50: Crossmatch See Detail 10/14/20 16:02: POC Glucose 222 H 10/14/20 22:42: POC Glucose 116 H 10/15/20 06:10: WBC 10.4, RBC 3.01 L, Hgb 8.7 L, Hct 27.9 L, MCV 92.7, MCH 28.9, MCHC 31.2 L, RDW Std Deviation 57.4 H, RDW Coeff of Christina 17.8 H, Plt Count 266, MPV 9.1, Immature Gran % (Auto) 0.900, Neut % (Auto) 76.2 H, Lymph % (Auto) 13.4 L, [place] % (Auto) 7.8, Eos % (Auto) 1.6, Baso % (Auto) 0.1, Absolute Neuts (auto) 7.9 H, Absolute Lymphs (auto) 1.40, Nucleated RBC % 0 10/15/20 06:10: Sodium 142, Potassium 3.9, Chloride 110 H, Carbon Dioxide 27.0, Anion Gap 5, BUN 8, Creatinine 0.93, Estim Creat Clear Calc 41.89, Est GFR (MDRD) Af Amer 74, Est GFR (MDRD) Non-Af 61, BUN/Creatinine Ratio 8.6 L, Glucose 80, Calcium 7.8 L, Phosphorus 3.2, Magnesium 2.1 10/15/20 06:46: POC Glucose 86 10/15/20 11:17: POC Glucose 93 10/15/20 12:50: Hgb 9.2 L, Hct 29.8 L Discharge Activity: Return to Normal Activity Call your doctor if you observe: Fever of 101 or Higher, Shortness of breath, Dizziness, Fainting spells, Swelling in the ankles, Chest pain, Increased palpitations (irregular heartbeat) Home Medications: Medications to take at Discharge Lansoprazole [Prevacid] 30 mg PO DAILY 10/27/14 Multivitamins,Therapeutic [Multivitamin] 1 tab PO DAILY 10/27/14 Nitroglycerin (INPATIENT USE) [Nitrostat] 0.4 mg SUBLINGUAL Q5M PRN 10/27/14 Vit A/Vit C/Vit E/Zinc/Copper [Preservision Areds Softgel] 1 ea PO BID 10/27/14 Calcium Carbonate [Calcium] 600 mg PO DAILY 02/04/17 Ferrous Sulfate [Iron Supplement] 325 mg PO TID 07/08/17 albuterol sulfate 90 mcg/actuation aerosol inhaler 2 puff INHALATION Q6H PRN 04/07/19 amlodipine 10 mg tablet 5 mg PO BID 04/07/19 fluticasone propionate 50 mcg/actuation nasal spray,suspension 2 spray INTRANASAL DAILY 04/07/19 tiotropium bromide 2.5 mcg/actuation mist for inhalation 2 puff INHALATION DAILY 04/07/19 metoprolol tartrate 50 mg tablet 100 mg PO BID tab 04/08/19 lisinopril 20 mg tablet 10 mg PO BID tab 04/21/20 Atorvastatin Calcium 40 mg PO QHS 10/12/20 Furosemide [Lasix] 20 mg PO DAILY 10/12/20 Glimepiride 1 mg PO DAILY 10/12/20 Guaifenesin [Mucinex] 600 mg PO BID 10/12/20 Isosorbide Mononitrate [Isosorbide Mononitrate ER] 30 mg PO DAILY 10/12/20 Mometasone/Formoterol [Dulera 200 Mcg/5 Mcg Inhaler] 1 puff IH BID 10/12/20 Prednisone See Taper PO DAILY 10/12/20 Aspirin [Low Dose Aspirin EC] 81 mg PO DAILY #0 10/15/20 Cefdinir [Omnicef [equiv]] 300 mg PO Q12H #4 cap 10/15/20 Clopidogrel Bisulfate [Plavix] 75 mg PO DAILY #0 10/15/20 Following Prescriptions Were Given to Patient: Cefdinir [Omnicef [equiv]] 300 mg PO Q12H #4 cap Transmission Status: Received by [facility] Primary Care Physician: Ady Ignacio MD [Primary Care Provider] - Please follow up with your Primary Care Physician in: 3-5 days Please Follow Up With: Cardiology Disposition: Home Minutes spent on discharge:: 35 Patient Condition:: Stable Medical Necessity - Tobacco Use Smoking Status: Former smoker Tobacco Use: Non-smoker Meaningful Use Info Meaningful Use Diagnoses (Choose all that apply): None applicable Inpatient E&M: 60614 [facility]
--- NOTE | 2020-10-16 14:35 | CASEMGMT ---
RN CM DISCHARGE PHONE CALL DC DATE: 10/15/2020 DC DISPOSITION: Home DC DIAGNOSIS: blood loss anemia Intro role of CM to patient via phone. Patient states she is feeling better and does not have questions re: her medications. She states she saw her dairy technologist today and they reviewed her medications. No further questions and no care improvement suggestions. Josh VIDALES RN AC
== END 2020-10-15 15:29 | disposition home or self-care (01) | DRG 377 ==
LOC: ED 11:27 → PCU 14:17
PROVIDERS: Surgery; Admitting Provider Internal Medicine; Emergency Provider Emergency Medicine; PCP Internal Medicine; Visit Provider Family Medicine
PROC: 0DJD8ZZ Inspection of Lower Intestinal Tract, Via Natural or Artificial Opening Endoscopic (ICD-10-PCS; CPT 45378; principal; 2020-10-13 15:10)
DX: K92.1 Melena (principal); J18.9 Pneumonia, unspecified organism; D62 Acute posthemorrhagic anemia; J44.0 Chronic obstructive pulmonary disease with (acute) lower respiratory infection; I13.0 Hypertensive heart and chronic kidney disease with heart failure and stage 1 through stage 4 chronic kidney disease, or unspecified chronic kidney disease; R04.2 Hemoptysis; I50.9 Heart failure, unspecified; N18.30 Chronic kidney disease, stage 3 unspecified; I25.10 Atherosclerotic heart disease of native coronary artery without angina pectoris; I27.20 Pulmonary hypertension, unspecified; I25.5 Ischemic cardiomyopathy; G47.33 Obstructive sleep apnea (adult) (pediatric); E78.2 Mixed hyperlipidemia; E11.22 Type 2 diabetes mellitus with diabetic chronic kidney disease; E11.51 Type 2 diabetes mellitus with diabetic peripheral angiopathy without gangrene; K21.9 Gastro-esophageal reflux disease without esophagitis; Z66 Do not resuscitate; Z79.51 Long term (current) use of inhaled steroids; Z79.82 Long term (current) use of aspirin; Z95.5 Presence of coronary angioplasty implant and graft; Z79.02 Long term (current) use of antithrombotics/antiplatelets; Z79.84 Long term (current) use of oral hypoglycemic drugs; Z79.899 Other long term (current) drug therapy; Z87.891 Personal history of nicotine dependence; Z80.0 Family history of malignant neoplasm of digestive organs
CPT/HCPCS: 36415; 71045; 80048; 80053; 80076; 82274; 82962; 83735; 84100; 84484; 85014; 85018; 85025; 85610; 85730; 86850; 86900; 86901; 86920; 86922; 87426; 87449; 87635; 93005; 94640; 99251; 99285; J7030; J7040; J7120; P9016; A4216; G0463; J1940; J2405; J3490; U0002

== ENCOUNTER → 2020-11-15 08:27 | Outpatient (CLI) | payer MEDICARE, SELFPAY ==
[2020-05-16 11:24] VITALS: BMI 26.8
[2020-10-12 14:32] VITALS: BMI 38.8
[2020-11-15 09:25] LABS: Hematocrit 40.7 % (37-47); Hemoglobin 11.8 g/dL (12.0-15.0); Mean Corpuscular Hgb 26.8 pg (27.0-32.0); Mean Corpuscular Volume 92.5 fL (81-99); Mean Platelet Vol. 9.6 fl (6.2-12.0); Platelet Count 373 K/mm3 (150-450); RBC Distribution Width SD 47.7 fl (35.1-43.9); White Blood Count 11.9 K/mm3 (4.4-11.0)
[2020-11-15 10:13] LABS: Albumin, Serum 3.5 g/dL (3.2-5.0); BUN 21 mg/dL (7-18); BUN/Creat Ratio 21.3 RATIO (10-20); Calcium,Total 8.9 mg/dL (8.5-10.1); Chloride 108 mmol/L (98-107); Creatinine, Serum 0.98 mg/dL (0.55-1.02); EST Glomerular Filtration Rate 57 mL/min (>60); Est Glom Filt Rate - Afr Amer 69 mL/min (>60); Glucose 46 mg/dL (74-106); Phosphorus 3.3 mg/dL (2.5-4.9); Potassium 3.8 mmol/L (3.5-5.1); Sodium Level 142 mmol/L (136-145)
== END ==
PROVIDERS: PCP Internal Medicine; Referring Provider Internal Medicine Nephrology; Visit Provider Internal Medicine Nephrology
DX: N18.30 Chronic kidney disease, stage 3 unspecified (principal); D50.9 Iron deficiency anemia, unspecified
CPT/HCPCS: 36415; 80069; 85027

== ENCOUNTER 2020-12-13 12:35 | Emergency (ER) | payer MEDICARE, SELFPAY ==
[2020-10-12 14:32] VITALS: BMI 38.8
[2020-12-13] VITALS (9 sets, daily range): BP systolic 100–165; BP diastolic 43–105; PULSE 78–91; RESP 15–22; TEMP 36.2; O2SAT 91–95; BMI 21.7
--- NOTE | 2020-12-13 12:36 | CT_ITS ---
STUDY: CT HEAD STROKE PROTOCOL W/O CONTRAST INJECTION REASON FOR EXAM: Female, 85 years old. Neuro symptoms RADIATION DOSAGE (If Supplied By Facility): CTDIvol = ( 44.99 ) mGy, DLP = ( 798.92 ) mGycm TECHNIQUE: Transaxial CT imaging of the brain was performed without administration of intravenous contrast material. Individualized dose optimization techniques were used for this CT. COMPARISON: Comparison is made with prior study dated 02/04/2019. FINDINGS: Normal soft tissue structures. Normal calvarium. There is mild cerebral atrophy with widening of the extra-axial spaces and ventricular dilatation. There are areas of decreased attenuation within the white matter tracts of the supratentorial brain, consistent with microvascular disease changes. There are small punctate calcifications of the basal ganglia which are seen in the aging brain as a normal variant. Normal brainstem. Normal cerebellum. There is no intracranial hemorrhage. There are no findings of an acute ischemic infarction. Atherosclerotic calcific plaques of the vertebral arteries and cavernous portions of the internal carotid arteries bilaterally. Normal visualized paranasal sinuses. CT/STROKE Brain/Head without Cont IMPRESSION: Chronic involutional changes of the brain. N.B. : The above information has been verbally conveyed by Guillermo Paulino MD to George Capitola on 12/13/2020 12:54:50 (ET). Electronically Signed: Guillermo Paulino MD at 12:55 EST , Service support ,
--- NOTE | 2020-12-13 12:36 | EKG12_ITS ---
Test Reason : STROKE Blood Pressure : / mmHG Vent. Rate : 082 BPM Atrial Rate : 082 BPM P-R Int : 140 ms QRS Dur : 064 ms QT Int : 372 ms P-R-T Axes : 064 020 055 degrees QTc Int : 434 ms Normal sinus rhythm Nonspecific ST abnormality Abnormal ECG Confirmed by MALLORY MOSQUEDA, HERVE ([id number]), fan mail editor NALDO KAY ([id number]) on 12/15/2020 8:41:27 AM Referred By: CARLTON Confirmed By:ANNETTE TEJADA MD
[2020-12-13] MEDS: Dextrose 50%-Water 25 GM/50 ML DISP.SYRIN IV (12:37)
[2020-12-13 12:48] LABS: Absolute Lymphocyte Count 2.22 X10^3/uL (0.83-4.51); Absolute Neutrophil Count 8.6 X10^3/uL (2.0-7.7); Basophil# 0.03 X10^3/uL; Basophil% 0.3 % (0-1); Eosinophil# 0.11 X10^3/uL; Eosinophils% 0.9 % (0-5); Hematocrit 42.5 % (37-47); Hemoglobin 12.8 g/dL (12.0-15.0); Lymphocyte # 2.22 X10^3/ul (4.0); Lymphocyte % 18.6 % (19-41); Mean Corp Hgb Conc 30.1 g/dL (32-36); Mean Corpuscular Hgb 26.2 pg (27.0-32.0); Mean Corpuscular Volume 87.1 fL (81-99); Monocyte% 8.4 % (0-10); NRBC Flagged by Analyzer 0 % (0-5); Neutrophil # 8.55 X10^3/uL (2.7-7.7); Neutrophil % 71.5 % (47-70); Platelet Count 322 K/mm3 (150-450); RBC Distribution Width CV 13.6 % (11.6-14.6); RBC Distribution Width SD 43.6 fl (35.1-43.9); Red Blood Count 4.88 M/mm3 (4.2-5.4)
[2020-12-13 12:50] LABS: Bedside Glucose 234 mg/dL (70-110)
--- NOTE | 2020-12-13 13:00 | ED.RN ---
PER DR NOLAN, NIH SCALE ASSESSMENTS DISCONTINUED AT THIS TIME, 1300
[2020-12-13 13:06] LABS: Anion Gap 5 (5-15); BUN 22 mg/dL (7-18); Calcium,Total 9.2 mg/dL (8.5-10.1); Chloride 105 mmol/L (98-107); Creatinine, Serum 1.05 mg/dL (0.55-1.02); EST Glomerular Filtration Rate 53 mL/min (>60); Est Glom Filt Rate - Afr Amer 64 mL/min (>60); Estimated Creatinine Clearance 36.67 ml/min; Glucose 30 mg/dL (74-106); Potassium 3.3 mmol/L (3.5-5.1); Sodium Level 138 mmol/L (136-145)
[2020-12-13 13:07] LABS: International Normalized Ratio 0.9; Prothrombin Time (Protime)PT. 11.8 SECONDS (11.7-14.9)
[2020-12-13 13:08] LABS: Partial Thromboplast Time 28.5 Seconds (24.1-36.2)
--- NOTE | 2020-12-13 13:10 | RAD_ITS ---
STUDY: X-RAY CHEST REASON FOR EXAM: Female, 85 years old. NEURO DEFICIT, ACUTE, STROKE SUSPECTED TECHNIQUE: Single AP portable view of the chest. COMPARISON: Comparison is made with prior study dated 10/12/2020. FINDINGS: EKG electrodes are seen. Hyperinflation. Minimal degree of increased markings at the lung bases suggestive of bibasilar scarring. There is no demonstrated pleural abnormality. Normal size heart. Normal mediastinum and meka. Normal visualized pulmonary arteries. There is atherosclerotic calcification of the aortic arch with tortuosity. There are diffuse degenerative changes of the visualized thoracic spine. Normal visualized ribs, clavicles, and shoulders. There is no demonstrated abnormality of the visualized soft tissue structures of the upper abdomen. RAD/Chest 1 View IMPRESSION: Hyperinflation. Findings suggest mild scarring at the lung bases. Electronically Signed: Guillermo Paulino MD at 13:38 EST , Service support ,
[2020-12-13 13:26] LABS: Bedside Glucose 137 mg/dL (70-110)
--- NOTE | 2020-12-13 13:43 | CHAPLAIN ---
Type of Pastoral Visit ___ Initial Visit ___ Follow-up Visit ___ On-call Visit ___ General Patient Visit ___ Spiritual Assessment ___ Family Conference ___ Bereavement _x__ Rapid Response ___ Code Blue ___ Other (describe below) Pastoral Care Referral From ___ Patient _x__ Family ___ Nurse ___ Physician ___ Fiscal Economist ___ Insurance Account Manager ___ Other (describe below) Sacrament/Intervention _x__ Active listening ___ Anointing ___ Yazidism ___ Bereavement ___ Communion ___ Shari exploration ___ _x__ Life review _x__ Prayer ___ Reconciliation ___ Sacrament of Sick _x__ Supportive presence ___ Wedding ___ Other (describe below) Pastoral Comments this was a stroke alert; met daughter of patient and sat with her in waiting area until she was able to see patient; daughter was talkative and asked for prayer support; stayed with daughter until permission to go into room; also met patient and gave reassurance of spiritual and emotional support;
--- NOTE | 2020-12-13 13:44 | ED.DCSUM_ITS ---
History of Present Illness Informant: Patient, Family, Senior Quality Assurance Analyst Narrative: 85-year-old female presenting via EMS out of concern for stroke. Prehospital stroke was called. Patient is a diabetic. She recently had her glipizide increased and she restarted Metformin over the weekend. Daughter tells me that her blood sugars have been dropping down into the 70s and she has been weaker than normal since starting it. This morning the patient got up around 5:30 in the morning. She had 2 pieces of cinnamon toast. She also had coffee. By around 10:00 she seemed to have difficulty speaking and seemed off balance. Daughter tells me her blood sugar was around 70. On the way out to lunch the daughter gave the patient some chocolate hoping to make her blood sugar better. At the restaurant before her food came the daughter needed to call the ambulance. Upon arrival at the hospital the patient's blood sugar was 25. Previously for EMS that had been in the 50s which was obtained as they were approaching the hospital. They attempted to give some oral glucose but it had not yet been very effective. On the way to CT patient received D50 by nursing. Upon arrival back in the resuscitation room the patient states she is doing much better. <George Sanabria - Last Filed: 12/13/20 13:55> <Arvin Larson - Last Filed: 12/13/20 16:20> Chief Complaint: Neuro S/Sx - Past Medical History (1) Atherosclerotic heart disease of [place] coronary artery without angina pectoris Status: Chronic Comment: Stenting to LCx at [facility]; (2) CHF (congestive heart failure) Status: Chronic (3) CKD (chronic kidney disease) Status: Chronic (4) COPD (chronic obstructive pulmonary disease) Status: Chronic (5) Essential hypertension Status: Chronic (6) Ischemic cardiomyopathy Status: Chronic (7) Mixed hyperlipidemia Status: Chronic (8) EKATERINA (obstructive sleep apnea) Status: Chronic (9) Pulmonary hypertension Status: Chronic (10) Type 2 diabetes mellitus Status: Chronic <George Sanabria - Last Filed: 12/13/20 13:55> Past Medical History Surgical History: cholecystectomy, hysterectomy, - - heart stents Smoking Status: Never smoker Alcohol: None Drugs: None - Family History Maternal Family History: Family History (Last Reviewed 06/06/19 @ 15:18 by Margie Cruz) Father Heart disease Mother Cancer Brother Heart disease Family History: Reports: Cancer Paternal Family History: Family History (Last Reviewed 04/08/19 @ 15:18 by Margie Cruz) Father Heart disease Mother Cancer Brother Heart disease Family History: Reports: Heart Disease <George Sanabria - Last Filed: 12/13/20 13:55> - Family History Maternal Family History: Family History (Last Reviewed 04/08/19 @ 15:18 by Margie Cruz) Father Heart disease Mother Cancer Brother Heart disease Paternal Family History: Family History (Last Reviewed 04/08/19 @ 15:18 by Margie Cruz) Father Heart disease Mother Cancer Brother Heart disease <Arvin Larson - Last Filed: 12/13/20 16:20> - Allergies and Home Meds Allergies/Adverse Reactions: Allergies acetaminophen [From Tylenol] Allergy (Verified 12/13/20 12:53) Hives iodine Allergy (Verified 12/13/20 12:53) Hives nabumetone Allergy (Verified 12/13/20 12:53) Unknown pregabalin [From Lyrica] Allergy (Verified 12/13/20 12:53) Unknown albuterol [From ProAir HFA] Adverse Reaction (Verified 12/13/20 12:53) Other Primary Care Physician: Ady Ignacio MD [Primary Care Provider] - As soon as possible Review of Systems General: Reports: Malaise. Denies: Chills, Fever, Sweats Eyes: Denies: Visual changes - bilaterally, Diplopia ENT: Denies: Rhinorrhea, Sore throat Cardiovascular: Denies: Chest pain, Palpitations Respiratory: Denies: Dyspnea, Cough, Dyspnea on exertion Gastrointestinal: Denies: Abdominal pain, Nausea, Vomiting, Diarrhea, Melena, Hematochezia Genitourinary: Denies: Dysuria, Hematuria, Frequency Musculoskeletal: Denies: Back pain, Extremity Pain Skin: Denies: Rash, Wounds Neurological: Reports: - - Dysarthria. Denies: Headache, Weakness, Numbness <George Sanabria - Last Filed: 12/13/20 13:55> Physical Exam Vital Signs/Narrative: Vital Signs Temp Pulse Resp BP Pulse Ox 12/13/20 13:07 85 22 H 130/81 H 93 12/13/20 12:57 86 22 H 165/61 H 93 12/13/20 12:49 91 12/13/20 12:46 97.2 F L 78 15 144/57 H 91 12/13/20 12:42 78 15 144/57 H 91 Inital Vital Signs reviewed: Yes General: Well nourished, Well developed, No Acute Distress Head: Normocephalic, Atraumatic Eyes: Perrl, EOMI ENT: Moist mucous membranes, No rhinorrhea Neck: Supple, Nontender Cardiovascular: Regular rate, Regular rhythm, No murmurs Respiratory: No distress, CTA bilaterally, Chest nontender Abdomen: Soft, Nontender, Nondistended, Normal bowel sounds Back: Nontender, Normal Inspection Extremities: Nontender, No edema Skin: Normal color, No rash Neurological: Lethargic - Participating in examination readily., Stupor, - <George Sanabria - Last Filed: 12/13/20 13:55> Vital Signs/Narrative: Vital Signs Temp Pulse Resp BP Pulse Ox 12/13/20 16:00 90 18 94 12/13/20 15:00 91 18 122/105 H 93 12/13/20 14:07 81 18 125/43 H 94 12/13/20 13:07 85 22 H 130/81 H 93 12/13/20 12:57 86 22 H 165/61 H 93 12/13/20 12:49 91 12/13/20 12:46 97.2 F L 78 15 144/57 H 91 12/13/20 12:42 78 15 144/57 H 91 <Arvin Larson - Last Filed: 12/13/20 16:20> Diagnostic/Tx/Re-eval Clinical Impression(s) from Imaging Studies Brain CT 12/13/20 12:36 IMPRESSION: Chronic involutional changes of the brain. N.B. : The above information has been verbally conveyed by Guillermo Paulino MD to George Sanabria on 12/13/2020 12:54:50 (ET). Electronically Signed: Guillermo Paulino MD at 12:55 EST , Service support , ADDENDUM: 12/13/20 1302 IMPRESSION: Chronic involutional changes of the brain. N.B. : The above information has been verbally conveyed by Guillermo Paulino MD to George Daniele on 12/13/2020 12:54:50 (ET). Electronically Signed: Guillermo Paulino MD at 12:55 EST , Service support , Chest X-Ray 12/13/20 13:10 IMPRESSION: Hyperinflation. Findings suggest mild scarring at the lung bases. Electronically Signed: Guillermo Paulino MD at 13:38 EST , Service support , Laboratory Last Values WBC 12.0 K/mm3 (4.4-11.0) H 12/13/20 12:40 RBC 4.88 M/mm3 (4.2-5.4) 12/13/20 12:40 Hgb 12.8 g/dL (12.0-15.0) 12/13/20 12:40 Hct 42.5 % (37-47) 12/13/20 12:40 MCV 87.1 fL (81-99) 12/13/20 12:40 MCH 26.2 pg (27.0-32.0) L 12/13/20 12:40 MCHC 30.1 g/dL (32-36) L 12/13/20 12:40 RDW Std Deviation 43.6 fl (35.1-43.9) 12/13/20 12:40 RDW Coeff of Christina 13.6 % (11.6-14.6) 12/13/20 12:40 Plt Count 322 K/mm3 (150-450) 12/13/20 12:40 MPV 10.0 fl (6.2-12.0) 12/13/20 12:40 Immature Gran % (Auto) 0.300 % (0.0-0.9) 12/13/20 12:40 Neut % (Auto) 71.5 % (47-70) H 12/13/20 12:40 Lymph % (Auto) 18.6 % (19-41) L 12/13/20 12:40 [place] % (Auto) 8.4 % (0-10) 12/13/20 12:40 Eos % (Auto) 0.9 % (0-5) 12/13/20 12:40 Baso % (Auto) 0.3 % (0-1) 12/13/20 12:40 Absolute Neuts (auto) 8.6 X10^3/uL (2.0-7.7) H 12/13/20 12:40 Absolute Lymphs (auto) 2.22 X10^3/uL (0.83-4.51) 12/13/20 12:40 Nucleated RBC % 0 % (0-5) 12/13/20 12:40 PT 11.8 SECONDS (11.7-14.9) 12/13/20 12:40 INR 0.9 12/13/20 12:40 APTT 28.5 Seconds (24.1-36.2) 12/13/20 12:40 Sodium 138 mmol/L (136-145) 12/13/20 12:40 Potassium 3.3 mmol/L (3.5-5.1) L 12/13/20 12:40 Chloride 105 mmol/L (98-107) 12/13/20 12:40 Carbon Dioxide 28.0 mmol/L (21.0-32.0) 12/13/20 12:40 Anion Gap 5 (5-15) 12/13/20 12:40 BUN 22 mg/dL (7-18) H 12/13/20 12:40 Creatinine 1.05 mg/dL (0.55-1.02) H 12/13/20 12:40 Estim Creat Clear Calc 36.67 ml/min 12/13/20 12:40 Est GFR (MDRD) Af Amer 64 mL/min (>60) 12/13/20 12:40 Est GFR (MDRD) Non-Af 53 mL/min (>60) L 12/13/20 12:40 BUN/Creatinine Ratio 21.0 RATIO (10-20) H 12/13/20 12:40 Glucose 30 mg/dL (74-106) L* 12/13/20 12:40 Calcium 9.2 mg/dL (8.5-10.1) 12/13/20 12:40 Troponin I < 0.015 ng/mL (<0.045) 12/13/20 12:40 POC Glucose 137 mg/dL (70-110) H 12/13/20 13:18 - EKG Initial EKG Interpretation: Sinus Rhythm - EKG demonstrates a normal sinus rhythm at a rate of 82. No concerning features of ACS or ectopy. - Medical Decision Making Once the patient was brought back to the resuscitation room. A NIH was obtained which was 0. The patient appears to be at baseline. She received food and drink. We monitored her her blood sugar over the next several hours. Her blood sugars remained stable I think the patient can be discharged home and my recommendation will be that we discontinue her Metformin until she can see her doctors. I recommend that she check her blood sugar today every couple hours while eating frequent food. I encouraged her to check her blood sugar several times a day after that. I asked her to follow-up with primary care. However the patient becomes repetitively hypoglycemic here in the department she may require admission for close blood glucose monitoring until she clears her Metformin. <George Sanabria - Last Filed: 12/13/20 13:55> - Medical Decision Making This patient was checked out to me with period of observation repeat blood sugars pending. Her initial sugar was 120 and then went down to 107. However, an hour later it is 128 and an hour after that it is 158. Family feels comfortable taking her home. Treatment plan: Patient be discharged instructions to check her sugar again in 2 hours. Check it again before going to bed. Return to the emergency department for any worsening symptoms. <Arvin Larson - Last Filed: 12/13/20 16:20> ED Disposition <George Sanabria - Last Filed: 12/13/20 13:55> <Arvin Larson - Last Filed: 12/13/20 16:20> - Plan for ED Patient: Disposition: Home or Assisted Living Diagnosis: Diabetic hypoglycemia Instructions: ED DIABETES Hypoglycemia Oral Agent Referrals: Ady Ignacio MD [Primary Care Provider] - As soon as possible Additional Instructions: Please discontinue your Metformin. I would not make further adjustments to your diabetes medications until you have discussed with your doctor.
[2020-12-13 15:21] LABS: Bedside Glucose 128 mg/dL (70-110)
[2020-12-13 15:21] LABS: Bedside Glucose 107 mg/dL (70-110)
[2020-12-13 16:21] LABS: Bedside Glucose 152 mg/dL (70-110)
[2020-12-14 08:01] LABS: Bedside Glucose 25 mg/dL (70-110)
== END 2020-12-13 16:35 | disposition home or self-care (01) ==
PROVIDERS: Emergency Provider Emergency Medicine; PCP Internal Medicine
DX: E11.649 Type 2 diabetes mellitus with hypoglycemia without coma (principal); I25.10 Atherosclerotic heart disease of native coronary artery without angina pectoris; I13.0 Hypertensive heart and chronic kidney disease with heart failure and stage 1 through stage 4 chronic kidney disease, or unspecified chronic kidney disease; E11.22 Type 2 diabetes mellitus with diabetic chronic kidney disease; N18.9 Chronic kidney disease, unspecified; I50.9 Heart failure, unspecified; I25.5 Ischemic cardiomyopathy; I27.20 Pulmonary hypertension, unspecified; J44.9 Chronic obstructive pulmonary disease, unspecified; E78.2 Mixed hyperlipidemia; Z79.84 Long term (current) use of oral hypoglycemic drugs; Z79.899 Other long term (current) drug therapy
CPT/HCPCS: 70450; 71045; 80048; 82962; 84484; 85025; 85610; 85730; 93005; 96374; 99285

== ENCOUNTER → 2021-05-22 08:18 | Outpatient (CLI) | payer MEDICARE, SELFPAY ==
[2020-12-13 12:49] VITALS: BMI 21.7
[2021-05-22 09:29] LABS: Hematocrit 40.2 % (37-47); Hemoglobin 12.4 g/dL (12.0-15.0); Mean Corp Hgb Conc 30.8 g/dL (32-36); Mean Corpuscular Hgb 27.4 pg (27.0-32.0); Mean Corpuscular Volume 88.7 fL (81-99); Mean Platelet Vol. 10.2 fl (6.2-12.0); Platelet Count 250 K/mm3 (150-450); RBC Distribution Width CV 14.5 % (11.6-14.6); RBC Distribution Width SD 46.5 fl (35.1-43.9); Red Blood Count 4.53 M/mm3 (4.2-5.4); White Blood Count 10.5 K/mm3 (4.4-11.0)
[2021-05-22 09:58] LABS: BUN 20 mg/dL (7-18); BUN/Creat Ratio 18.2 RATIO (10-20); Calcium,Total 8.7 mg/dL (8.5-10.1); Chloride 106 mmol/L (98-107); EST Glomerular Filtration Rate 50 mL/min (>60); Est Glom Filt Rate - Afr Amer 61 mL/min (>60); Glucose 139 mg/dL (74-106); Phosphorus 2.8 mg/dL (2.5-4.9); Potassium 3.8 mmol/L (3.5-5.1); Sodium Level 140 mmol/L (136-145)
[2021-05-22 10:01] LABS: PTHIN 61.7 pg/mL (18.4-80.1)
== END ==
PROVIDERS: PCP Internal Medicine; Referring Provider Internal Medicine Nephrology; Visit Provider Internal Medicine Nephrology
DX: N18.30 Chronic kidney disease, stage 3 unspecified (principal)
CPT/HCPCS: 36415; 80069; 83970; 85027

== ENCOUNTER 2021-12-04 10:16 | Outpatient (CLI) | payer MEDICARE, SELFPAY ==
[2020-12-13 12:49] VITALS: BMI 21.7
[2021-12-04 11:14] LABS: Hematocrit 40.9 % (37-47); Hemoglobin 12.7 g/dL (12.0-15.0); Mean Corp Hgb Conc 31.1 g/dL (32-36); Mean Corpuscular Hgb 26.1 pg (27.0-32.0); Mean Corpuscular Volume 84.2 fL (81-99); Mean Platelet Vol. 9.4 fl (6.2-12.0); Platelet Count 600 K/mm3 (150-450); RBC Distribution Width CV 14.5 % (11.6-14.6); RBC Distribution Width SD 44.1 fl (35.1-43.9); Red Blood Count 4.86 M/mm3 (4.2-5.4); White Blood Count 8.9 K/mm3 (4.4-11.0)
[2021-12-04 11:44] LABS: Albumin, Serum 2.5 g/dL (3.2-5.0); BUN 28 mg/dL (7-18); BUN/Creat Ratio 20.7 RATIO (10-20); Calcium,Total 8.6 mg/dL (8.5-10.1); Chloride 106 mmol/L (98-107); Creatinine, Serum 1.35 mg/dL (0.55-1.02); EST Glomerular Filtration Rate 40 mL/min (>60); Est Glom Filt Rate - Afr Amer 48 mL/min (>60); Glucose 121 mg/dL (74-106); Potassium 3.5 mmol/L (3.5-5.1); Sodium Level 140 mmol/L (136-145)
[2021-12-04 13:30] LABS: Protein:Creat Ratio 219 mg/g CRE (0-200)
== END 2021-12-04 23:59 | disposition short-term general hospital (02) ==
LOC: LAB 10:18
PROVIDERS: PCP Internal Medicine; Visit Provider Internal Medicine Nephrology
DX: E11.22 Type 2 diabetes mellitus with diabetic chronic kidney disease (principal); E11.21 Type 2 diabetes mellitus with diabetic nephropathy; N18.30 Chronic kidney disease, stage 3 unspecified; D50.9 Iron deficiency anemia, unspecified
CPT/HCPCS: 36415; 80069; 82570; 84156; 85027

== ENCOUNTER 2021-12-11 14:40 | Outpatient (CLI) | payer MEDICARE, SELFPAY | END 2021-12-11 23:59 | disposition home or self-care (01) | LOC: LAB 14:41 → LABSPEC 14:44 | PROVIDERS: PCP Internal Medicine; Visit Provider Internal Medicine Nephrology | DX: R19.7 Diarrhea, unspecified (principal) | CPT/HCPCS: 87506 ==

== ENCOUNTER 2022-01-08 10:27 | Outpatient (CLI) | payer MEDICARE, SELFPAY ==
[2022-01-08 13:07] LABS: Albumin, Serum 2.9 g/dL (3.2-5.0); BUN 19 mg/dL (7-18); BUN/Creat Ratio 19.3 RATIO (10-20); Calcium,Total 8.8 mg/dL (8.5-10.1); Chloride 103 mmol/L (98-107); Creatinine, Serum 0.99 mg/dL (0.55-1.02); EST Glomerular Filtration Rate 57 mL/min (>60); Est Glom Filt Rate - Afr Amer 69 mL/min (>60); Glucose 147 mg/dL (74-106); Phosphorus 3.1 mg/dL (2.5-4.9); Sodium Level 138 mmol/L (136-145)
== END 2022-01-08 23:59 | disposition home or self-care (01) ==
LOC: LAB 10:29
PROVIDERS: PCP Internal Medicine; Referring Provider Internal Medicine Nephrology; Visit Provider Internal Medicine Nephrology
DX: N18.30 Chronic kidney disease, stage 3 unspecified (principal)
CPT/HCPCS: 36415; 80069

== ENCOUNTER → 2022-03-06 | Outpatient (CLI) | payer MEDICARE, SELFPAY ==
--- NOTE | 2022-03-06 14:09 | MRI_ITS ---
STUDY: MR MRCP WITHOUT CONTRAST REASON FOR EXAM: Female, 86 years old. acute recurrent pancreatitis TECHNIQUE: Standard MRCP technique was utilized. 3-D postprocessing images were reviewed. COMPARISON: None. FINDINGS: Gall Bladder: Surgically absent. Cystic duct: Surgically absent. Intrahepatic ducts: Mildly dilated centrally most likely due to reservoir effect. Common hepatic duct: Mild to moderately dilated most likely due to reservoir effect. Common bile duct: Mild to moderately dilated most likely due to reservoir effect. No obstructing stone, or stricture. Pancreatic duct: Normal with no demonstrated fixed filling defect, dilation or stricture. 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 MRI/MRCP Abdomen without Contrast IMPRESSION: Mild to moderate dilatation of the extra and intrahepatic biliary ducts is mostly secondary to reservoir effect status post cholecystectomy. 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 Electronically Signed: Alejandro Gaitan MD at 17:29 EDT ,
== END | disposition home or self-care (01) ==
LOC: MRI 14:09
PROVIDERS: PCP Internal Medicine; Referring Provider Internal Medicine Gastroenterology; Visit Provider Internal Medicine Gastroenterology
DX: K85.90 Acute pancreatitis without necrosis or infection, unspecified (principal)
CPT/HCPCS: 74181

== ENCOUNTER → 2022-03-15 | Outpatient (CLI) | payer MEDICARE, SELFPAY ==
[2022-03-18 21:46] LABS: Fats, Neutral Normal (.); Fats, Total Normal (.)
== END | disposition home or self-care (01) ==
LOC: LABSPEC 08:49
PROVIDERS: Nurse Practitioner Adult Health; PCP Internal Medicine; Referring Provider Internal Medicine Gastroenterology; Visit Provider Internal Medicine Gastroenterology
DX: R10.12 Left upper quadrant pain (principal)
CPT/HCPCS: 82705

== ENCOUNTER → 2022-03-20 | Outpatient (CLI) | payer MEDICARE, SELFPAY ==
--- NOTE | 2022-03-20 08:48 | RAD_ITS ---
STUDY: X-RAY - ESOPHAGUS (BARIUM SWALLOW) WITH FLUOROSCOPY REASON FOR EXAM: Female, 86 years old. DYSPHAGIA TECHNIQUE: 16 view(s) of the esophagus were obtained following swallowing of barium. FLUOROSCOPY TIME (if supplied): (34 seconds) minutes/seconds COMPARISON: None. FINDINGS: There is no demonstrated esophageal foreign body. There is no demonstrated stricture or mucosal abnormality. Normal gastroesophageal junction, without a demonstrated hiatal hernia. The patient ingested a 12 mm tablet of barium without any difficulty. There is atherosclerotic calcification of the aortic arch with tortuosity of the descending aorta. Normal visualized pulmonary parenchyma. There are diffuse degenerative changes of the visualized thoracic spine. RAD/Esophagus Dual Contrast IMPRESSION: Normal plain film x-ray examination (barium swallow) of the esophagus. Electronically Signed: Guillermo Paulino MD at 10:25 EDT ,
== END | disposition home or self-care (01) ==
LOC: RAD 08:07
PROVIDERS: PCP Internal Medicine; Visit Provider Nurse Practitioner Adult Health
DX: R13.10 Dysphagia, unspecified (principal)
CPT/HCPCS: 74221

== ENCOUNTER 2022-04-04 10:44 | Day surgery (SDC) | payer MEDICARE, SELFPAY ==
--- NOTE | 2022-04-04 11:19 | HP.PCM_ITS ---
History and Physical Date of Admission: 04/04/22 KYLE ARROYO, is a 86 F who presents to the office today for 2 month f/u abdominal pain, elevated lipase. Here to review MRCP result Kyle established with this clinic 02.15.22 with referral from PCP for abdominal pain, decreased appetite and nausea. Biochemical workup found elevated alkaline phosphatase [address] Green felt her symptoms were consistent with acute recurrent pancreatitis or chronic pancreatitis. He reviewed her previous imaging that she had of her abdomen pelvis it does look as though she has a duodenal diverticulum that may be contributing to her symptoms and leading to signs of pancreatitis. She describes the pain as going around to the back on the left-hand side which would correspond with pancreatic symptoms. He gave her a trial of pancreatic enzymes-- she reports initially pancreatic enzymes seemed to help, doesn't always take with snacks. Pain isn't daily. It occurs before and after eating when it happens. Also in the differential is diabetic gastroparesis. She c/o difficulty swallowing, this is hr main concern today, has been an issue x years, feels like food and water stick at proximal esophagus, makes her choke, occas causes her to vomit. No ED trips for this. EGD done in 2019 by gen surg reported normal esophagus. Diarrhea yesterday, takes Imodium prn, took 2 yesterday, no BM yet today, doesn't need antidiarrheal often. More likely to have constipation than diarrhea. 03/06/22 MRCP Abdomen without Contrast IMPRESSION: Mild to moderate dilatation of the extra and intrahepatic biliary ducts is mostly secondary to reservoir effect status post cholecystectomy. 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 CTA abd/pel 02.21.16 found a normal liver, cholecystectomy, duodenal diverticulum measuring 3.05x3.0x4.0cm along medial wall of the second portion near ampulla containing gas and enteric material, sigmoid colonic diverticula. EGD and colonoscopy performed 05.16.20 at another facility. H.Pylori negative. Gastritis in gastric antrum. Hepatic flexure polyp tubular adenoma. Stool testing 12.11.21 for enteric pathogens WNL. C.Difficile testing cancelled. ROS Const Constitutional: Positive for fatigue, frequent falls, headache(s), weakness and weight change ENT ENT: Positive for headache(s) and difficulty swallowing Gastro GI: Positive for abdominal pain, bloating, constipation, diarrhea, difficulty swallowing, excessive flatus and nausea/dyspepsia; No belching, change in bowel habits, change in stool character, coffee ground emesis, cramping, heartburn, feeling full early, incontinent of stools, Vomiting blood/hematemesis, Blood in stool, loose stools, Black,tarry stools, pain with swallowing, vomiting or other Musc Musculoskeletal: Positive for muscle cramps, muscle weakness, numbness, stiffness, tingling, Arthritis and restless legs; No joint pain Skin Skin: Positive for dry skin, itchy eyes and rash; No yellowing of the eye Neuro Neurology: Positive for weakness, frequent falls, headache(s), numbness, tingling and restless legs Psych Psychiatric: Positive for anxiety, Positive for depression, Positive for hyperactivity and Positive for inattentiveness Endo Endocrine: Positive for fatigue and weight change Aller/Imm Allergy/Immunologic: Positive for itchy eyes Todd/Lymp Hematologic/Lymphatic: Positive for easy bruising; No easy bleeding Exam Const General: comfortable, well developed and well groomed Eyes General: appearance normal, both eyes and all related structures GI Inspection: normal to inspection Neuro General: patient alert, patient awake and patient oriented x3 Gait: normal gait Psych Mood: euthymic mood Affect: normal affect Quality Reporting Tobacco Screening ([facility]) Smoking Status: Never smoker Assessment and Plan Assessment and Plan (1) LUQ abdominal pain: Status: Acute Orders: Orders: Pancreatic Elastase, Fecal Today Fecal Fat, Qualitative Today Plan - Samaria Rosenberg LEAD MANUFACTURING ENGINEERING TECH, LEAD MANUFACTURING ENGINEERING TECH-C: This delightful 86 yr old lady has recurrent LUQ pain that radiates around to the back. Possible chronic pancreatitis caused by large duodenal diverticulum. Some improvement of symptoms with pancreatic enzymes. I reviewed her case with Dr. Green. We will have her temporarily hold the pancreatic enzymes and she will get fecal fat and fecal elastase testing to try to pin down a diagnosis of chronic pancreatitis. (2) Dysphagia: Status: Acute Orders: Orders: Esophagus Dual Contrast Today Plan - Samaria Rosenberg LEAD MANUFACTURING ENGINEERING TECH, LEAD MANUFACTURING ENGINEERING TECH-C: Her main concern today is difficulty swallowing, this is not a new problem. EGD done 2 years ago by a general surgeon reported normal esophagus. We will get a barium esophagram to evaluate further. I will also get her scheduled for EGD with Dr. Green in case we need that. Follow-up will be scheduled in approximately 6 weeks. I have re-examined the patient. There are no clinical changes since date of exam.
[2022-04-04 11:28] VITALS: BP 155/66; PULSE 71; RESP 16; TEMP 37; O2SAT 92; BMI 31.6
--- NOTE | 2022-04-04 11:45 | EGD_PTH ---
PATIENT: KYLE ARROYO LOC: EN U#:[id number] AGE/SX: 86/F ROOM: RE04/04/[address]: Dr. Delio Green DO : 1935 BED: DIS: 04/04/2022 SPEC #: [id number] RECD: 04/04/22 13:06 STATUS: NICHOLE ULISSES #: [id number] TITI: 04/04/22 11:[address]: Delio Green DEPT: SURGICAL PATHOLOGY RECD BY: Gabi Lawton ENTERED: 04/04/22 13:47 SP TYPE: EGD BIOPSY PUSHPA DR: Dr. Ady Ignacio MD Tissues: Esophagus, NOS Procedures: Special Stain Group II Surgery Specimen Level IV Alcian Blue/PAS (control) HEADER OPERATION: EGD ([facility] [place]) with biopsies PRE-OP DIAGNOSIS: Left upper quadrant abdominal pain, dysphagia TISSUE SUBMITTED: Distal esophagus biopsy MICROSCOPIC DIAGNOSIS Distal esophagus, biopsy: Gastroesophageal junctional mucosa with chronic inflammation. Chronic focal changes of reflux. No evidence of goblet cell metaplasia. See comment. AM:tiffany 04/05/2022 COMMENT Alcian blue/PAS stain with matched control supports the above diagnosis. MICROSCOPIC DESCRIPTION Slides are reviewed. GROSS DESCRIPTION Received in fixative is one container labeled with the patient's name and designated distal esophagus biopsy. The specimen consists of multiple irregular fragments of light grewal soft tissue that in aggregate measure 1 x 0.3 x 0.1 cm. The specimen is totally submitted in one cassette. / AM:tiffany 04/04/2022 TC:3 CPT: 96138, 26847
[2022-04-04 12:20] VITALS: BP 116/34; BP 155/66; PULSE 74; RESP 16; TEMP 36.9; O2SAT 93
[2022-04-04 12:25] VITALS: BP 118/37; BP 155/66; PULSE 78; RESP 16; O2SAT 93
--- NOTE | 2022-04-04 12:25 | OP.EGD_ITS ---
Patient Name: Hazel García Procedure Date: 04/04/2022 11:55 AM Date of : 1935 Age: 86 Procedure: Upper GI endoscopy Indications: Dysphagia Providers: Delio Green DO Referring MD: Ady Ignacio Medicines: Monitored Anesthesia Care Patient Profile: This is an 86 year old female. Refer to note in patient chart for documentation of history and physical. Patient has symptoms of dysphagia with solids. Complications: No immediate complications. Procedure: Pre-Anesthesia Assessment: - Prior to the procedure, a History and Physical was performed, and patient medications and allergies were reviewed. The patient is competent. The risks and benefits of the procedure and the sedation options and risks were discussed with the patient. All questions were answered and informed consent was obtained. Patient identification and proposed procedure were verified by the physician in the pre-procedure area. Mental Status Examination: alert and oriented. Airway Examination: normal oropharyngeal airway and neck mobility. Respiratory Examination: clear to auscultation. CV Examination: normal. Prophylactic Antibiotics: The patient does not require prophylactic antibiotics. Prior Anticoagulants: The patient has taken no previous anticoagulant or antiplatelet agents. ASA Grade Assessment: II - A patient with mild systemic disease. After reviewing the risks and benefits, the patient was deemed in satisfactory condition to undergo the procedure. The anesthesia plan was to use moderate sedation / analgesia (conscious sedation). Immediately prior to administration of medications, the patient was re-assessed for adequacy to receive sedatives. The heart rate, respiratory rate, oxygen saturations, blood pressure, adequacy of pulmonary ventilation, and response to care were monitored throughout the procedure. The physical status of the patient was re-assessed after the procedure. After obtaining informed consent, the endoscope was passed under direct vision. Throughout the procedure, the patient's blood pressure, pulse, and oxygen saturations were monitored continuously. The gastroscope was introduced through the mouth, and advanced to the second part of duodenum. The upper GI endoscopy was accomplished without difficulty. The patient tolerated the procedure well. Scope In: 12:06:01 PM Scope Out: 12:12:24 PM Total Procedure Duration Time 0 hours 6 minutes 23 seconds Findings: Patchy, white plaques were found in the upper third of the esophagus. LA Grade A (one or more mucosal breaks less than 5 mm, not extending between tops of 2 mucosal folds) esophagitis with no bleeding was found 36 to 39 cm from the incisors. Biopsies were taken with a cold forceps for histology. Verification of patient identification for the specimen was done. Estimated blood loss was minimal. A moderate Schatzki ring was found in the lower third of the esophagus. A guidewire was placed and the scope was withdrawn. Dilation was performed with a Savary dilator with no resistance at 51 Fr. The dilation site was examined following endoscope reinsertion and showed moderate improvement in luminal narrowing. Estimated blood loss was minimal. A small hiatal hernia was present. Patchy mildly erythematous mucosa without bleeding was found in the stomach. The second portion of the duodenum was normal. Impression: - Esophageal plaques were found, consistent with candidiasis. - LA Grade A reflux esophagitis. Biopsied. - Moderate Schatzki ring. Dilated. - Small hiatal hernia. - Erythematous mucosa in the stomach. - Normal second portion of the duodenum. Recommendation: - Discharge patient to home. - Resume previous diet. - Continue present medications. - Nystatin suspension 100,000 units PO QID for 5 weeks. Procedure Code(s): --- Professional --- 21725, Esophagogastroduodenoscopy, flexible, transoral; with insertion of guide wire followed by passage of dilator(s) through esophagus over guide wire 26814, 59,51, Esophagogastroduodenoscopy, flexible, transoral; with biopsy, single or multiple CPT copyright 2017 [employer]. All rights reserved. The codes documented in this report are preliminary and upon window installer review may be revised to meet current compliance requirements. Delio Green DO 04/04/2022 12:24:45 PM This report has been signed electronically. Number of Addenda: 1 Note Initiated On: 04/04/2022 11:55 AM Addendum Number: 1 Addendum Date: 08/06/2022 6:30:00 AM MAC was used as sedation for this procedure. Delio Green DO 08/06/2022 6:30:06 AM This report has been signed electronically.
--- NOTE | 2022-04-04 12:26 | OP.CCLET_ITS ---
08/06/2022 Ady Ignacio [address] [place] [address] Re : Upper GI endoscopy procedure for Hazel García Dear Dr. Ignacio This procedure was performed on April. My impressions and recommendations are as follows: Impressions : - Esophageal plaques were found, consistent with candidiasis. - LA Grade A reflux esophagitis. Biopsied. - Moderate Schatzki ring. Dilated. - Small hiatal hernia. - Erythematous mucosa in the stomach. - Normal second portion of the duodenum. Recommendations : - Discharge patient to home. - Resume previous diet. - Continue present medications. - Nystatin suspension 100,000 units PO QID for 5 weeks. My findings are described in the full procedure note, which is enclosed. If I can be of further assistance, please feel free to contact me at . Sincerely, Delio Friend, 04/04/2022 12:24:45 PM This report has been signed electronically.
[2022-04-04 12:30] VITALS: BP 124/39; BP 155/66; PULSE 79; RESP 16; O2SAT 93
[2022-04-04 12:35] LABS: Bedside Glucose 109 mg/dL (74-106)
[2022-04-04 12:36] VITALS: BP 132/42; BP 155/66; PULSE 72; RESP 16; TEMP 36.7; O2SAT 92
[2022-04-04 13:10] VITALS: BP 155/66
== END 2022-04-04 13:30 | disposition home or self-care (01) ==
LOC: EN 10:45 → AC 10:46
PROVIDERS: PCP Internal Medicine; Referring Provider Internal Medicine; Visit Provider Internal Medicine Gastroenterology
PROC: 0DJ08ZZ Inspection of Upper Intestinal Tract, Via Natural or Artificial Opening Endoscopic (ICD-10-PCS; CPT 43235; principal; 2022-04-04 11:40)
DX: K22.2 Esophageal obstruction (principal); E11.51 Type 2 diabetes mellitus with diabetic peripheral angiopathy without gangrene; J44.9 Chronic obstructive pulmonary disease, unspecified; I13.0 Hypertensive heart and chronic kidney disease with heart failure and stage 1 through stage 4 chronic kidney disease, or unspecified chronic kidney disease; I50.9 Heart failure, unspecified; K86.1 Other chronic pancreatitis; N18.30 Chronic kidney disease, stage 3 unspecified; K44.9 Diaphragmatic hernia without obstruction or gangrene; K21.00 Gastro-esophageal reflux disease with esophagitis, without bleeding; D63.1 Anemia in chronic kidney disease; I25.10 Atherosclerotic heart disease of native coronary artery without angina pectoris; I34.0 Nonrheumatic mitral (valve) insufficiency; I25.5 Ischemic cardiomyopathy; E78.2 Mixed hyperlipidemia; R10.12 Left upper quadrant pain; Z95.5 Presence of coronary angioplasty implant and graft; Z79.84 Long term (current) use of oral hypoglycemic drugs; Z79.899 Other long term (current) drug therapy
CPT/HCPCS: 43239; 43248; 82962; 88305; 88313; J7040; J7120; C1769; J2405

== ENCOUNTER → 2022-05-14 | Outpatient (CLI) | payer MEDICARE, SELFPAY ==
--- NOTE | 2022-05-14 08:06 | CDU_ITS ---
Reason For Study: carotid stenosis Rt. Velocities/BP Lt. Velocities/BP Prox CCA 56.5/8.2 cm/sec. Prox CCA 55.6/10.2 cm/sec. Mid CCA 56.5/8.2 cm/sec. Mid CCA 67.9/10.2 cm/sec. Dist CCA 56.5/6.9 cm/sec. Dist CCA 78.9/11.4 cm/sec. Prox ICA 58.1/7.7 cm/sec. Prox ICA 180.6/27.0 cm/sec. Mid ICA 66.7/10.2 cm/sec. Mid ICA 102.8/17.0 cm/sec. Dist ICA 94.9/13.9 cm/sec. Dist ICA 77.7/13.9 cm/sec. Rt. ICA/CCA = 1.7. Lt. ICA/CCA = 2.7. Prox ECA 138.9 cm/sec. Prox ECA 275.8 cm/sec. Rt. Vert. 48.3/7.7 cm/sec. Lt. Vert. 45.4/6.9 cm/sec. Right Extracranial There is heterogeneous, irregular atherosclerotic plaque noted in the right common carotid artery. There is heterogeneous, irregular atherosclerotic plaque noted in the right internal carotid artery. There is heterogeneous, irregular atherosclerotic plaque noted in the right external carotid artery. Antegrade flow is noted in the right vertebral artery. Left Extracranial There is heterogeneous, irregular atherosclerotic plaque noted in the left common carotid artery. There is heterogeneous, irregular atherosclerotic plaque noted in the left internal carotid artery. There is heterogeneous, irregular atherosclerotic plaque noted in the left external carotid artery. Antegrade flow is noted in the left vertebral artery. Procedure Carotid Duplex 51272. This is a Carotid Duplex examination using B-mode, color flow and specral Doppler. The exam was diagnostic. Exam performed in department. VL/Carotid Duplex Ultrasound Interpretation Summary Mild (<50%) stenosis right extracranial internal carotid. Moderate (50-69%) sonia nosis left extracranial internal carotid. Flow within the vertebral arteries is antegrade bilaterally. Ordering Physician: Jose Luis Marie Performed By: Marvin Brannon RVT
== END | disposition home or self-care (01) ==
LOC: CVS 08:02
PROVIDERS: PCP Internal Medicine; Referring Provider Surgery Vascular Surgery; Visit Provider Surgery Vascular Surgery
DX: I65.23 Occlusion and stenosis of bilateral carotid arteries (principal)
CPT/HCPCS: 93880

== ENCOUNTER → 2022-12-06 | Outpatient (CLI) | payer MEDICARE, SELFPAY ==
--- NOTE | 2022-12-06 07:49 | CT_ITS ---
STUDY: CT ABDOMEN AND PELVIS WITH CONTRAST REASON FOR EXAM: Female, 87 years old. luq pain, lower abd pain, diarrhea -- oral and iv. PRIOR HYSTER,APPY GB RADIATION DOSAGE (If Supplied By Facility): CTDIvol = ( 14.82 ) mGy, DLP = ( 782.25 ) mGycm TECHNIQUE: Transaxial images were obtained from the dome of the diaphragm to the symphysis pubis with oral contrast. Oral and amp; IV Readi-CAT and amp; 75mL Isovue-300 was administered. Sagittal and coronal images were reconstructed. Individualized dose optimization techniques were used for this CT. COMPARISON: None. FINDINGS: The visualized lung bases are unremarkable. Coronary artery calcification. Normal liver. The patient is status post cholecystectomy. Mildly dilated central intrahepatic biliary ducts. The common bile duct is dilated down to the second portion of the duodenum. This measures 10.4 mm in transverse dimension. I suspect a duodenal diverticulum. Normal spleen. Normal pancreas. Normal bilateral adrenal glands. Normal right kidney. Normal left kidney. Normal visualized stomach. Normal small intestine. There are multiple colonic diverticula consistent with diverticulosis. The appendix is visualized and appears normal. There is diffuse atherosclerotic calcification of the abdominal aorta, without a demonstrated aneurysm. Normal inferior vena cava. Normal retroperitoneum. Normal urinary bladder. There is absence of the uterus consistent with a prior hysterectomy. There is a left-sided inguinal hernia containing adipose tissue. There are diffuse degenerative changes of the visualized lumbar spine. Levoscoliosis. Loss of the normal lumbar lordosis. CT/Abdomen/Pelvis WITH Contrast IMPRESSION: Status post cholecystectomy with intrahepatic biliary ductal dilatation. Dilated common bile duct down to the insertion into the duodenum. 3.9 cm x 3.3 cm diverticulum in the second portion of the duodenum. Electronically Signed: Guillermo Paulino MD at 10:59 EST ,
[2022-12-06 08:16] LABS: CREATININE FINGERSTICK 0.9 mg/dL (0.55-1.02); EGFR FINGERSTICK > 60.0000 mL/min (>60)
== END | disposition home or self-care (01) ==
LOC: CT 07:48
PROVIDERS: PCP Internal Medicine; Referring Provider Nurse Practitioner Adult Health; Visit Provider Nurse Practitioner Adult Health
DX: R10.12 Left upper quadrant pain (principal)
CPT/HCPCS: 74177; Q9967

== ENCOUNTER 2023-12-25 14:44 | Inpatient (IN) | payer MEDICARE, SELFPAY ==
[2023-12-25] VITALS (9 sets, daily range): BP systolic 122–154; BP diastolic 51–64; PULSE 76–96; RESP 17–28; TEMP 36.4–37.5; O2SAT 92–98; BMI 21.4; BMI 25.4
--- NOTE | 2023-12-25 14:53 | EKG12_ITS ---
Test Reason : cp Blood Pressure : / mmHG Vent. Rate : 081 BPM Atrial Rate : 081 BPM P-R Int : 148 ms QRS Dur : 062 ms QT Int : 326 ms P-R-T Axes : 047 031 053 degrees QTc Int : 378 ms Normal sinus rhythm Normal ECG Confirmed by JENN DEAN MD ([id number]), web content editor NALDO KAY ([id number]) on 12/26/2023 1:04:42 PM Referred By: Ivan Confirmed By:JENN DEAN MD
--- NOTE | 2023-12-25 14:55 | EX.ED.DYSGE1 ---
HPI History of Present Illness Chief Complaint: Chest Pain Detail of Chief Complaint: Patient has a constellation of symptoms. Informant: patient and family Onset/Context/Timing Onset: Days (Onset 8 days ago) Context: Gradual Onset Timing: Continuous and Waxes and wanes Quality: Burning Location: Left-sided chest Current Severity: Mild Maximum Severity: Moderate Worsened by: Nothing Relieved by: Nothing Associated Symptoms Associated Symptoms: Upper respiratory tract infectious symptoms Narrative Narrative: Patient is a 88-year-old female with multiple medical problems who presents with chest pain that started 8 days ago. She also complains of dyspnea, dyspnea on exertion, wheezing, nonproductive cough, rhinorrhea, congestion, postnasal drainage. She denies sore throat. She does endorse chills she has not had a documented fever. She states she has not been on prednisone the last 3 to 6 months. She does have a history of COPD. She also has a history of atherosclerotic heart disease with ischemic cardiomyopathy, essential hypertension, type 2 diabetes, dyslipidemia and congestive heart failure. Patient denies orthopnea, PND or pedal edema. Patient denies headache, visual, ocular auditory symptoms. Patient denies history of VTE. She denies leg pain, swelling or discoloration. She denies symptoms of claudication. She denies abdominal pain, nausea, vomiting or diarrhea. She has not had black or maroon-colored stool. Prior similar symptoms: Yes Recent Illness/Hospitalization: No PFSH PFSH Medical History Abdominal pain Anemia of chronic renal failure, stage 3 (moderate) Atherosclerotic heart disease of [place] coronary artery without angina pectoris CAD (coronary artery disease) Cardiology follow-up encounter Carotid artery disease Chronic pancreatitis CKD (chronic kidney disease) COPD (chronic obstructive pulmonary disease) Diabetes Dyslipidemia Esophageal reflux disease Essential hypertension Former smoker Gastric reflux History of atrial fibrillation History of CHF (congestive heart failure) History of edema Hypoxia Ischemic cardiomyopathy Leukocytosis Lower leg edema LUQ abdominal pain Macular degeneration Mixed hyperlipidemia EKATERINA (obstructive sleep apnea) Osteopenia PAD (peripheral artery disease) Pneumonia Presence of stent in coronary artery Pulmonary hypertension PVD (peripheral vascular disease) Sleep apnea Syncope Vitamin D deficiency Wears dentures Wears glasses Home Medications lansoprazole 30 mg capsule,delayed release (Prevacid) 30 mg PO DAILY ACID REFLUX 10/27/14 [History Last Taken 12/25/23] multivitamin with folic acid 400 mcg tablet 1 tab PO DAILY MULTIVITAMIN 10/27/14 [History Last Taken 12/25/23] nitroglycerin 0.4 mg sublingual tablet 0.4 mg sublingual Q5M PRN Chest Pain 10/27/14 [History Last Taken 12/25/23] vitamins A,C,Q-irfm-lbclgp 4,296 mcg-226 mg-90 mg capsule 1 ea PO BID SUPPLEMENT 10/27/14 [History Last Taken 12/25/23] calcium carbonate 600 mg calcium (1,500 mg) tablet 600 mg PO DAILY SUPPLEMENT 02/04/17 [History Last Taken 12/25/23] albuterol sulfate 90 mcg/actuation aerosol inhaler (Ventolin HFA) 2 puff inhalation Q6H PRN Wheezing 04/07/19 [History Last Taken 12/25/23] tiotropium bromide 2.5 mcg/actuation mist for inhalation (Spiriva Respimat) 2 puff inhalation DAILY breathing 04/07/19 [History Last Taken 12/25/23] metoprolol tartrate 50 mg tablet 50 mg PO BID blood pressure 04/08/19 [History Last Taken 12/25/23] atorvastatin 40 mg tablet 40 mg PO QHS cholesterol lowering 10/12/20 [History Last Taken 12/24/23] furosemide 20 mg tablet 20 mg PO DAILY water pill 10/12/20 [History Last Taken 12/25/23] glimepiride 1 mg tablet 1 mg PO DAILY blood sugar 10/12/20 [History Last Taken 12/25/23] isosorbide mononitrate 30 mg tablet,extended release 24 hr 30 mg PO DAILY heart 10/12/20 [History Last Taken 12/25/23] mometasone-formoterol HFA 200 mcg-5 mcg/actuation aerosol inhaler (Dulera) 1 puff IH BID breathing 10/12/20 [History Last Taken 12/25/23] losartan 25 mg tablet 25 mg PO DAILY 01/25/22 [History Last Taken 12/25/23] colestipol 1 gram tablet 1 g PO ONCE #30 tabs 12/19/22 [Rx Last Taken 12/25/23] gukxih-olnbctql-kkusltc 24,000-76,000-120,000 unit capsule,delayed rel (Creon) See Rx Instructions PO .COMPLEX #320 caps 09/24/23 [Rx Last Taken 12/25/23] dicyclomine 10 mg capsule 10 mg PO TID #90 caps 11/28/23 [Rx Last Taken 12/25/23] amlodipine 5 mg tablet 5 mg PO DAILY 12/25/23 [History Last Taken 12/25/23] fluticasone propionate 50 mcg/actuation nasal spray,suspension (24 Hour Allergy Relief) 2 spray intranasal DAILY PRN ALLERGIES 12/25/23 [History Last Taken 12/25/23] Allergy/AdvReac Type Severity Reaction Status Date / Time acetaminophen [From Tylenol] Allergy Hives Verified 02/18/23 13:38 iodine Allergy Hives Verified 02/18/23 13:38 nabumetone Allergy Unknown Verified 02/18/23 13:38 pregabalin [From Lyrica] Allergy Unknown Verified 02/18/23 13:38 Family History Father Heart disease Mother Cancer Brother Heart disease Surgical History H/O heart artery stent History of cholecystectomy History of hysterectomy Presence of coronary angioplasty implant and graft Social History (Updated 12/25/23 @ 14:[address] Tang Love MD) household members: family Smoking Status: Former smoker alcohol intake: never substance use type: does not use caffeine: Yes Type: coffee Number of servings: 2 ROS ROS ED Constitutional Constitutional ED: Reports chills and sweats; Denies fever(s) or weight loss Eyes Eyes: Denies blurry vision, change in vision or diplopia ENT ENT ED: Reports rhinorrhea; Denies ear pain or sore throat Cardiovascular Cardiovascular: Reports chest pain; Denies orthopnea, palpitations, paroxysmal nocturnal dyspnea or racing heartbeat Respiratory/Chest Respiratory/Chest: Reports cough, dyspnea and dyspnea on exertion; Denies orthopnea, paroxysmal nocturnal dyspnea or sputum Gastrointestinal Gastrointestinal: Denies abdominal pain, constipation, diarrhea, melena or vomiting Genitourinary Genitourinary ED: Denies dysuria, hematuria or urinary frequency Musculoskeletal Musculoskeletal: Denies arthralgias or myalgias Integumentary Denies rash Neurologic Neurologic: Reports weakness; Denies headache(s) or paresthesias Hematologic/Lymphatic Hematologic/Lymphatic: Reports systems reviewed and no addt'l complaints, except as documented EXAM Physical Exam Const Vital Signs: 12/25/23 14:45 12/25/23 14:45 12/25/23 15:08 Temperature 98.8 F Temperature Source Temporal Pulse Rate 84 76 Respiratory Rate 23 H 27 H Respiratory Effort Short of Breath Respiratory Pattern Tachypnea Blood Pressure 133/64 H Blood Pressure Mean 87 Pulse Ox 94 Oxygen Delivery Method Room Air Positive well nourished and well developed Constitutional Narrative: Patient appears slightly tachypneic. There is no use of accessory muscles. She does not appear in obvious distress. General Appearance ED: well developed; Negative for cyanotic, diaphoretic or pallor HEENT Reports dry mucous membranes HEENT Narrative: Head is atraumatic and normocephalic. Ears normal. Nares patent. Posterior pharynx out erythema or exudate. Mouth ED: Yes dry mucous membranes Mouth: dry mucous membranes Eyes PERRL and EOMs intact bilaterally General Eye ED: Negative for pale conjunctiva or scleral icterus Neck no lymphadenopathy, supple and no JVD Neck Narrative: Trachea is midline. There is no stridor. There is no carotid bruits. Chest Wall inspection of chest normal and palpation of chest normal Resp normal respiratory effort and No clear to auscultation bilaterally Auscultation: rales bilateral lower and wheezes expiratory wheezes (There is increased expiratory phase.), scattered wheezes and throughout Cardio regular rate, regular rhythm, S1 normal heart sound, S2 normal heart sound and no murmurs GI normal to inspection, nondistended, normoactive bowel sounds, non-tender, non-distended and no masses; Negative for hepatosplenomegaly Back/Spine no CVA tenderness Extremity normal to inspection Extremity Narrative: There is no asymmetry, swelling, discoloration, leg vein distention, palpable cords or tenderness along the distribution of the deep venous system. General Extremety ED: Negative for edema or tenderness General Extremity: Negative for edema Neuro oriented x3, CN's II-XII intact bilaterally and no sensory deficits noted Sensorium / Orientation: alert Psych mental status grossly normal Skin no rashes or lesions noted, no wounds and No skin turgor normal General Skin Exam: Negative for jaundice or pallor MDM MDM MDM Narrative Medical decision making narrative: With patient having multiple risk factor for coronary disease and complaint of chest pain as a burning sensation will obtain EKG and troponin. Since she has had pain for several days 1 troponin will be sufficient. He also is history of pancreatitis will obtain lipase. Concern patient has infectious process exacerbating her COPD. Need to consider chronic bronchitis, pneumonia, pneumothorax. Doubt congestive heart failure even though she has history. Patient was treated with Atrovent followed by 2 albuterol treatments. If she does not improve or has persistent wheezing will treat with prednisone. History & Record Review Additional record(s) reviewed:: Prior outpatient record and Prior ED visit Lab Data Attestation: I reviewed the patient's lab results. Lab results narrative: White count is slightly elevated and patient has mild anemia with normal indices compared to most recent prior labs. Lactate was normal at 1.1. Comprehensive metabolic panel reveals slight elevation of creatinine 1.11. Glucose is elevated 111 with normal CO2 anion gap. Transaminases are normal. Lipase is normal. Labs: Laboratory Results - last 24 hr 12/25/23 12/25/23 14:28 14:58 WBC 11.9 H RBC 4.36 Hgb 11.6 L Hct 36.5 L MCV 83.7 MCH 26.6 L MCHC 31.8 L RDW Std Deviation 47.4 H RDW Coeff of Christina 15.5 H Plt Count 359 MPV 9.4 Immature Gran % (Auto) 0.400 Neut % (Auto) 81.2 H Lymph % (Auto) 8.5 L [place] % (Auto) 9.3 Eos % (Auto) 0.3 Baso % (Auto) 0.3 Absolute Neuts (auto) 9.7 H Absolute Lymphs (auto) 1.01 Nucleated RBC % 0 Sodium 133 L Potassium 4.3 Chloride 100 Carbon Dioxide 27.0 Anion Gap 6 BUN 21 H Creatinine 1.11 H Estim Creat Clear Calc 28.98 Est GFR (MDRD) Af Amer 60 Est GFR (MDRD) Non-Af 49 L BUN/Creatinine Ratio 18.9 Glucose 111 H Lactic Acid 1.1 Calcium 9.5 Total Bilirubin 0.50 AST 13 L ALT 15 Alkaline Phosphatase 80 Total Protein 6.7 Albumin 3.0 L Globulin 3.7 Albumin/Globulin Ratio 0.8 L Lipase 55 Patient was reassessed at 1717. Pulse ox was 87%. It is now harder between 88 to 90%. Will ambulate patient. I was informed that patient refused oxygen and does not have oxygen at home. Since she is hypoxic she will need to be admitted to the hospital. Patient will receive Solu-Medrol as well. Radiography Diagnostic Testing: Clinical Impression(s) from Imaging Studies Chest X-Ray 12/25/23 15:50 IMPRESSION: No radiographic evidence of acute cardiopulmonary disease. Electronically Signed: Sterling Burns MD at 16:44 EST Reading Location ID and State: [facility] / [place] Tel , Service support , Rhythm Strip Rhythm Strip: Sinus Rhythm Rate: 83 Ectopy: None EKG Initial EKG: Attestation: I personally reviewed and interpreted this EKG as follows: Interpretation: Sinus Rhythm (Rate is 81. EKG is normal. There is significant artifact in lead V3 and V6. [place] interval is 148 ms. QRS duration 62 ms. QT duration 326 ms. [place] is normal.) Treatment and Re-Evaluation :: Patient was reassessed at 1628. Patient pulse ox 88%. Suspect this is due to paradoxical hypoxia since she just received with her aerosol treatments. She is wheeze free. She was made aware of her results. Patient is supposed to be on oxygen. Will reassess oxygenation in 15 minutes. Patient desaturated 79% with ambulation. Will call hospitalist for admission. Discharge Plan Triage Chief Complaint: Chest Pain ED Provider: Tang Love Dx/Rx/DC Orders Clinical Impression: Acute exacerbation of chronic obstructive pulmonary disease, Mixed hyperlipidemia, Type 2 diabetes mellitus, Esophageal reflux disease, Acute bronchospasm, Acute hypoxemic respiratory failure, Non-cardiac chest pain Prescriptions: No Action Spiriva Respimat 2.5 mcg/actuation mist 2 puff INHALATION DAILY albuterol sulfate [Ventolin HFA] 90 mcg/actuation HFA aerosol inhaler 2 puff INHALATION Q6H PRN (Reason: Wheezing) metoprolol tartrate 50 mg tablet 50 mg PO BID losartan 25 mg tablet 25 mg PO DAILY Creon 24,000-76,000 -120,000 unit capsule,delayed release(DR/EC) See Rx Instructions PO .COMPLEX Qty: 320 5RF Rx Instructions: Take 2-3 capsules with meals and 1-2 with snacks lansoprazole [Prevacid] 30 MG capsule 30 mg PO DAILY nitroglycerin 0.4 MG tablet 0.4 mg sublingual Q5M PRN (Reason: Chest Pain) vitamins A,C,N-vgfn-fuogdi 1 EACH capsule 1 ea PO BID multivitamin with folic acid 1 TABLET tablet 1 tab PO DAILY calcium carbonate 600 MG tablet 600 mg PO DAILY atorvastatin 40 MG tablet 40 mg PO QHS glimepiride 1 MG tablet 1 mg PO DAILY Dulera 13 GM HFA aerosol inhaler 1 puff IH BID isosorbide mononitrate 30 MG tablet extended release 24 hr 30 mg PO DAILY furosemide 20 MG tablet 20 mg PO DAILY amlodipine 5 mg tablet 5 mg PO DAILY fluticasone propionate [24 Hour Allergy Relief] 50 mcg/actuation spray,suspension 2 spray intranasal DAILY PRN (Reason: ALLERGIES) Rx Instructions: administer into each nostril colestipol 1 gram tablet 1 g PO ONCE Qty: 30 2RF Rx Instructions: don't take other medications w/in one hour before or 4 hours after colestipol dicyclomine 10 mg capsule 10 mg PO TID Qty: 90 1RF Primary Care Provider: Maria Antonia Salas Referrals: Maria Antonia Salas MD [Primary Care Provider] - Disposition Disposition: Acute Care Hospital [facility]
[2023-12-25] MEDS: Ipratropium/Albuterol Sulfate 3 ML AMPUL.NEB INHALATION ×3 (15:05→23:25)
[2023-12-25] MEDS: Albuterol 2.5 MG/3 ML VIAL.NEB. INHALATION ×3 (15:06→15:29)
[2023-12-25 15:22] LABS: Absolute Lymphocyte Count 1.01 X10^3/uL (0.83-4.51); Absolute Neutrophil Count 9.7 X10^3/uL (2.0-7.7); Basophil# 0.03 X10^3/uL; Basophil% 0.3 % (0-1); Eosinophil# 0.04 X10^3/uL; Eosinophils% 0.3 % (0-5); Hematocrit 36.5 % (37-47); Hemoglobin 11.6 g/dL (12.0-15.0); Lymphocyte # 1.01 X10^3/ul (0.83-4.51); Lymphocyte % 8.5 % (19-41); Mean Corp Hgb Conc 31.8 g/dL (32-36); Mean Corpuscular Hgb 26.6 pg (27.0-32.0); Mean Corpuscular Volume 83.7 fL (81-99); Mean Platelet Vol. 9.4 fl (6.2-12.0); Monocyte# 1.11 X10^3/uL; Monocyte% 9.3 % (0-10); NRBC Flagged by Analyzer 0 % (0-5); Neutrophil # 9.66 X10^3/uL (2.7-7.7); Neutrophil % 81.2 % (47-70); Platelet Count 359 K/mm3 (150-450); RBC Distribution Width CV 15.5 % (11.6-14.6); RBC Distribution Width SD 47.4 fl (35.1-43.9); Red Blood Count 4.36 M/mm3 (4.2-5.4); White Blood Count 11.9 K/mm3 (4.4-11.0)
[2023-12-25 15:30] LABS: Lactic Acid 1.1 mmol/L (0.4-1.9)
[2023-12-25 15:38] LABS: ALB/GLOB Ratio 0.8 RATIO (0.9-2.4); AST(SGOT) 13 U/L (15-37); Alanine Aminotransfer ALT/SGPT 15 U/L (13-56); Alkaline Phosphatase 80 U/L (45-117); Anion Gap 6 (5-15); BUN 21 mg/dL (7-18); BUN/Creat Ratio 18.9 RATIO (10-20); Calcium,Total 9.5 mg/dL (8.5-10.1); Chloride 100 mmol/L (98-107); Creatinine, Serum 1.11 mg/dL (0.55-1.02); EST Glomerular Filtration Rate 49 mL/min (>60); Est Glom Filt Rate - Afr Amer 60 mL/min (>60); Estimated Creatinine Clearance 28.98 ml/min; Globulin 3.7 g/dL (2.2-4.2); Glucose 111 mg/dL (74-106); Lipase 55 U/L (13-75); Potassium 4.3 mmol/L (3.5-5.1); Protein, Total 6.7 g/dL (6.4-8.2); Sodium Level 133 mmol/L (136-145)
--- NOTE | 2023-12-25 15:50 | RAD_ITS ---
INDICATION: Cough and dyspnea EXAMINATION/TECHNIQUE: X-RAY - XR Chest 2 Views COMPARISON: 12/13/2020 FINDINGS: LINES/DEVICES: None. LUNGS: Patient markedly rotated. Stable hyperinflation. No consolidation, vascular congestion or pleural effusion. MEDIASTINUM AND CARDIOVASCULAR STRUCTURES: Cardiac silhouette stable within normal limits. BONES AND SOFT TISSUES: No acute changes. RAD/Chest PA and Lateral IMPRESSION: No radiographic evidence of acute cardiopulmonary disease. Electronically Signed: Sterling Burns MD at 16:44 EST ,
[2023-12-25] MEDS: MethylPREDNISolone 125 MG/2 ML Vial 60 MG IV (17:33)
--- NOTE | 2023-12-25 18:08 | PCM.HP.STD ---
HPI - General General Date of Admission: 12/25/23 Date of Service: 12/25/23 Chief Complaint: SOB, wheezing, chills HPI Narrative KYLE ARROYO, is a 88-year-old female with a history of GERD, diabetes, COPD, hypertension, CKD, coronary artery disease who presented to [facility] ED 12/25/2023 with multiple medical complaints over the past week. She has some dyspnea, wheezing, nonproductive cough, rhinorrhea, congestion, 8 days of chest pain and some chills with no documented fever. In ED patient tachypneic and 87% on room air even after aerosols, lab workup with creatinine 1.11, white blood cell count of 11.9 and sodium of 133. Pt ambulated after treatment and became hypoxic at 79%. Given patient's hypoxia despite treatment hospitalist contacted for admission. Patient evaluated with family member at bedside, patient fairly poor historian but it sounds like she has been having worsening shortness of breath with cough with white sputum, chills, congestion and wheezing over the past week and has also had some nausea and diarrhea over the past few days and noted she was a little bit dizzy this morning. There is some question of some intermittent chest pain over a period of time including the past 8 days that is on the left lower part of her chest wall wraps around her ribs, intermittently may change with nitro but patient not sure and does not seem to change with activity. Not presently having any chest pain, reports her shortness of breath feels better after interventions in the ED. [facility] Medical History (Updated 12/25/23 @ 18:[address] Yvette Taveras MD) Abdominal pain Anemia of chronic renal failure, stage 3 (moderate) Atherosclerotic heart disease of [place] coronary artery without angina pectoris CAD (coronary artery disease) Cardiology follow-up encounter Carotid artery disease Chronic pancreatitis CKD (chronic kidney disease) COPD (chronic obstructive pulmonary disease) Diabetes Dyslipidemia Esophageal reflux disease Essential hypertension Former smoker Gastric reflux History of atrial fibrillation History of CHF (congestive heart failure) History of edema Hypoxia Ischemic cardiomyopathy Leukocytosis Lower leg edema LUQ abdominal pain Macular degeneration Mixed hyperlipidemia EKATERINA (obstructive sleep apnea) Osteopenia PAD (peripheral artery disease) Pneumonia Presence of stent in coronary artery Pulmonary hypertension PVD (peripheral vascular disease) Sleep apnea Syncope Vitamin D deficiency Wears dentures Wears glasses Home Medications lansoprazole 30 mg capsule,delayed release (Prevacid) 30 mg PO DAILY ACID REFLUX 10/27/14 [History Last Taken 12/25/23] multivitamin with folic acid 400 mcg tablet 1 tab PO DAILY MULTIVITAMIN 10/27/14 [History Last Taken 12/25/23] nitroglycerin 0.4 mg sublingual tablet 0.4 mg sublingual Q5M PRN Chest Pain 10/27/14 [History Last Taken 12/25/23] vitamins A,C,Q-sded-jpjasf 4,296 mcg-226 mg-90 mg capsule 1 ea PO BID SUPPLEMENT 10/27/14 [History Last Taken 12/25/23] calcium carbonate 600 mg calcium (1,500 mg) tablet 600 mg PO DAILY SUPPLEMENT 02/04/17 [History Last Taken 12/25/23] albuterol sulfate 90 mcg/actuation aerosol inhaler (Ventolin HFA) 2 puff inhalation Q6H PRN Wheezing 04/07/19 [History Last Taken 12/25/23] tiotropium bromide 2.5 mcg/actuation mist for inhalation (Spiriva Respimat) 2 puff inhalation DAILY breathing 04/07/19 [History Last Taken 12/25/23] metoprolol tartrate 50 mg tablet 50 mg PO BID blood pressure 04/08/19 [History Last Taken 12/25/23] atorvastatin 40 mg tablet 40 mg PO QHS cholesterol lowering 10/12/20 [History Last Taken 12/24/23] furosemide 20 mg tablet 20 mg PO DAILY water pill 10/12/20 [History Last Taken 12/25/23] glimepiride 1 mg tablet 1 mg PO DAILY blood sugar 10/12/20 [History Last Taken 12/25/23] isosorbide mononitrate 30 mg tablet,extended release 24 hr 30 mg PO DAILY heart 10/12/20 [History Last Taken 12/25/23] mometasone-formoterol HFA 200 mcg-5 mcg/actuation aerosol inhaler (Dulera) 1 puff IH BID breathing 10/12/20 [History Last Taken 12/25/23] losartan 25 mg tablet 25 mg PO DAILY 01/25/22 [History Last Taken 12/25/23] colestipol 1 gram tablet 1 g PO ONCE #30 tabs 12/19/22 [Rx Last Taken 12/25/23] gpyuyf-ptbyrzsl-nizpznd 24,000-76,000-120,000 unit capsule,delayed rel (Creon) See Rx Instructions PO .COMPLEX #320 caps 09/24/23 [Rx Last Taken 12/25/23] dicyclomine 10 mg capsule 10 mg PO TID #90 caps 11/28/23 [Rx Last Taken 12/25/23] amlodipine 5 mg tablet 5 mg PO DAILY 12/25/23 [History Last Taken 12/25/23] fluticasone propionate 50 mcg/actuation nasal spray,suspension (24 Hour Allergy Relief) 2 spray intranasal DAILY PRN ALLERGIES 12/25/23 [History Last Taken 12/25/23] Allergy/AdvReac Type Severity Reaction Status Date / Time acetaminophen [From Tylenol] Allergy Hives Verified 02/18/23 13:38 iodine Allergy Hives Verified 02/18/23 13:38 nabumetone Allergy Unknown Verified 02/18/23 13:38 pregabalin [From Lyrica] Allergy Unknown Verified 02/18/23 13:38 Family History Father Heart disease Mother Cancer Brother Heart disease Surgical History H/O heart artery stent History of cholecystectomy History of hysterectomy Presence of coronary angioplasty implant and graft Social History (Updated 12/25/23 @ 14:[address] Tang Love MD) household members: family Smoking Status: Former smoker alcohol intake: never substance use type: does not use caffeine: Yes Type: coffee Number of servings: 2 ROS ROS Narrative General: Some chills HENT: Denies headache, nasal congestion, denies sore throat EYES: Denies changes in vision Resp: Increased shortness of breath, wheezing, cough Cardiac: Some left lower lateral chest wall pain GI: Denies abdominal pain, some nausea and diarrhea over the past couple of days : Denies changes in urination Extremity: Denies swelling MSK: Little bit weak Neuro: Denies any numbness/tingling, had some dizziness earlier today Heme: Denies any bleeding or bruising Skin: Denies rashes Psychiatric: No complaints voiced Vital Signs Vital Signs Vital Signs: 12/25/23 14:45 12/25/23 14:45 12/25/23 15:08 Temperature 98.8 F Temperature Source Temporal Pulse Rate 84 76 Respiratory Rate 23 H 27 H Respiratory Effort Short of Breath Respiratory Pattern Tachypnea Blood Pressure 133/64 H Blood Pressure Mean 87 Pulse Ox 94 Oxygen Delivery Method Room Air 12/25/23 17:33 Temperature 99.5 F H Temperature Source Pulse Rate 93 Respiratory Rate 24 H Respiratory Effort Respiratory Pattern Blood Pressure 122/51 H Blood Pressure Mean 74 Pulse Ox 98 Oxygen Delivery Method Weight Weight: 55 kg Body Mass Index (BMI) 21.4 Physical Exam Narrative General: Alert, not acutely distressed HEENT: Atraumatic, normocephalic Eyes: Anicteric, normal conjunctiva, extraocular movements grossly intact Neck: Supple Respiratory: Increased respiratory effort and diminished at the bases Cardiovascular: Regular rate and rhythm GI: Soft, nontender, nondistended Extremities: No edema Musculoskeletal: Moving all extremities Neuro: No overt focal neurological deficits Skin: No rashes appreciated Psych: Cooperative Results Lab / Micro Data 12/25/23 14:58 12/25/23 14:58 Labs: Laboratory Results - last 24 hr 12/25/23 14:28: Lactic Acid 1.1 12/25/23 14:58: WBC 11.9 H, RBC 4.36, Hgb 11.6 L, Hct 36.5 L, MCV 83.7, MCH 26.6 L, MCHC 31.8 L, RDW Std Deviation 47.4 H, RDW Coeff of Christina 15.5 H, Plt Count 359, MPV 9.4, Immature Gran % (Auto) 0.400, Neut % (Auto) 81.2 H, Lymph % (Auto) 8.5 L, [place] % (Auto) 9.3, Eos % (Auto) 0.3, Baso % (Auto) 0.3, Absolute Neuts (auto) 9.7 H, Absolute Lymphs (auto) 1.01, Nucleated RBC % 0, Sodium 133 L, Potassium 4.3, Chloride 100, Carbon Dioxide 27.0, Anion Gap 6, BUN 21 H, Creatinine 1.11 H, Estim Creat Clear Calc 28.98, Est GFR (MDRD) Af Amer 60, Est GFR (MDRD) Non-Af 49 L, BUN/Creatinine Ratio 18.9, Glucose 111 H, Calcium 9.5, Total Bilirubin 0.50, AST 13 L, ALT 15, Alkaline Phosphatase 80, Total Protein 6.7, Albumin 3.0 L, Globulin 3.7, Albumin/Globulin Ratio 0.8 L, Lipase 55 Micro: Microbiology 12/25/23 15:02 Mucosa - Nose SARS-CoV-2, Influenza & RSV (PCR) - Final Rhythm Strip Rhythm Strip: Sinus Rhythm Rate: 83 Ectopy: None Imaging Radiology Impression Chest X-Ray 12/25/23 15:50 IMPRESSION: No radiographic evidence of acute cardiopulmonary disease. Electronically Signed: Sterling Burns MD at 16:44 EST , Assessment & Plan Assessment/Plan (1) Acute exacerbation of chronic obstructive pulmonary disease: (2) COPD (chronic obstructive pulmonary disease): QUALIFIERS: COPD type: unspecified COPD Qualified Code(s): J44.9 - Chronic obstructive pulmonary disease, unspecified (3) Esophageal reflux disease: (4) Essential hypertension: (5) EKATERINA (obstructive sleep apnea): (6) Type 2 diabetes mellitus: QUALIFIERS: Diabetes mellitus salvage determiner insulin use: without fdc use Diabetes mellitus complication status: with other specified complication Qualified Code(s): E11.69 - Type 2 diabetes mellitus with other specified complication (7) CAD (coronary artery disease): (8) Anemia of chronic renal failure, stage 3 (moderate): PLAN: Plan #Hypoxia 2/2 Acute exacerbation of chronic COPD -79% on ambulation -Admit to floor, continuous O2 monitoring -Chest x-ray: With no acute findings -COVID, flu, RSV negative will obtain respiratory panel, sputum culture if able -O2 in place, wean as tolerated -IV methylprednisone -Scheduled DuoNebs -Antibiotics: Azithromycin -Incentive spirometer -Mucinex #Chest pain -Suspect noncardiac given location is more left lower chest wall and not consistently responsive to nitro and does not necessarily change with activity or rest -Will check troponin however as patient poor historian and very difficult to get timeline and symptomatology -Will check limited echo to assess for any wall motion abnormalities -Can consider further workup or management pending above results -Pain is not pleuritic and pt not tachycardic, do not think she has PE especially given her sx being consistent with COPD exacerbation and that she is already improving with current management, if any further complaints or concerns can always consider ddimer or CTA but low suspicion at this time # History of coronary artery disease -With left circumflex stenting in the past -Continue statin and beta-alberto -Reports being taken off of aspirin in the past for severe nose bleeds #Type 2 diabetes mellitus -Glucose checks and sliding scale insulin #GERD -Continue PPI # CKD stage III A -Appears to be at baseline -Avoid nephrotoxic agents -Daily BMPs #Hypertension -Continue home medications #DVT ppx: lovenox subq Yvette Taveras MD Time spent in the patient's overall evaluation,decision-making process, review of diagnostic data, adjustment of management, discussion with other providers, nursing nursing and ancillary staff involved in patient's care documentation, 58 Minutes Charges/Coding Visit Charges Inpatient E&M: 96971 Init Hosp L2
--- NOTE | 2023-12-25 18:51 | ECHOL_ITS ---
Reason For Study: Chest pain, Assess LV function Procedure This was a limited 2D transthoracic echocardiogram. Exam performed portable in patient room. Left Ventricle Normal LV size. Left ventricular systolic function is hyperdynamic. The left ventricular ejection fraction is 70 %. No regional wall motion abnormalities noted. Right Ventricle Normal RV size. Normal systolic function. Atria Normal left atrium. Normal right atrium. Mitral Valve Normal mitral valve. Tricuspid Valve Normal tricuspid valve. Moderate (2+) tricuspid valve insufficiency. Pulmonary artery systolic pressure is 55 mmHg. Moderate pulmonary hypertension. Aortic Valve Normal aortic valve. Trisinus/trileaflet aortic valve. Pulmonic Valve Normal pulmonic valve. Great Vessels Normal aortic root. The pulmonary artery is normal size. Normal inferior vena cava. Pericardium/Pleural No pericardial effusion. MMode/2D Measurements & Calculations LVIDd: 4.2 cm IVSd: 1.3 cm LAV(MOD-bp): 36.3 ml LVIDs: 2.1 cm LVPWd: 0.96 cm LAV(MOD-bp) Indexed: 25.0 ml/m2 RVDd: 2.9 cm FS: 50.7 % LAV(MOD-sp2): 44.8 ml LAV(MOD-sp4): 29.3 ml SV(MOD-sp4): 33.6 ml LVAd ap4: 17.2 cm2 LVAd ap2: 17.0 cm2 LVLd ap4: 6.0 cm LVLd ap2: 6.0 cm EDV(MOD-sp4): 41.6 ml EDV(MOD-sp2): 39.8 ml EDV(sp4-el): 41.8 ml EDV(sp2-el): 40.6 ml LVAs ap4: 6.7 cm2 LVAs ap2: 6.1 cm2 LVLs ap4: 5.0 cm LVLs ap2: 5.1 cm ESV(MOD-sp4): 8.0 ml ESV(MOD-sp2): 6.3 ml ESV(sp4-el): 7.7 ml ESV(sp2-el): 6.1 ml EF(MOD-sp4): 80.8 % EF(MOD-sp2): 84.3 % EF(sp4-el): 81.7 % SV(MOD-sp2): 33.5 ml SV(sp4-el): 34.1 ml LA A4 area: 13.4 cm2 LA dimension(2D): 4.2 cm RA A4 area: 10.6 cm2 Doppler Measurements & Calculations TR max lachelle: 360.2 cm/sec TR max P.9 mmHg ECHO/Echo, Limited Study Interpretation Summary Normal LV size. Left ventricular systolic function is hyperdynamic. The left ventricular ejection fraction is 70 %. Pulmonary artery systolic pressure is 55 mmHg. Moderate pulmonary hypertension. Ordering Physician: Yvette Taveras Referring Physician: Maria Antonia Salas M.D. Performed By: Lisa Chavez RDCS
--- OUTSIDE RECORDS SUMMARY | 2023-12-25 19:33 | XMS RPT_ITS | CCD ---
Author Name Unknown Address [id number] [place] [address] Organization [facility] Care Team Providers Care Eligibility Examiner Name Role Phone TYLER MOREL Unavailable Unavailable TYLER MOREL Unavailable Unavailable Ady Ignacio Unavailable Unavailable TYLER MOREL Unavailable Unavailable TYLER MOREL Unavailable Unavailable Ady Ignacio Unavailable Unavailable SELF, SELF Referring Unavailable Ady Ignacio MD Primary Care Provider Valentino, George S Unavailable Ady Ignacio MD Primary Care Provider Valentino, [place] S Unavailable Valentino, George S Unavailable Ady Ignacio MD Primary Care Provider Valentino, George S Unavailable Abril Salas MD Primary Care Provider Valentino, [place] S Unavailable Valentino MOSQUEDA [place] S Unavailable TALAMPAS, ABRIL D Primary Care Unavailable TALAMPAS, ABRIL D Referring Unavailable TALAMPAS, ABRIL D Attending Unavailable CHRISTIANO ZIMMER Referring Unavailable TALAMPAS, ABRIL D Primary Care Unavailable JASMIN AVENDANO Referring Unavailable MILADIS FOSTER Attending Unavailable TALAMPAS, ABRIL D Primary Care Unavailable EMILIE CORRAL Attending Unavailable TALAMPAS, ABRIL D Primary Care Unavailable MIA HAYWOOD Referring Unavailable TALAMPAS, ABRIL D Primary Care Unavailable MIA HAYWOOD Attending Unavailable TALAMPAS, ABRIL D Primary Care Unavailable ADONIS GIBSON Attending Unavailable TALAMPAS, ABRIL D Primary Care Unavailable ANNA PERERA Attending Unavailable TALAMPAS, ABRIL D Primary Care Unavailable EMILIE CORRAL Referring Unavailable EMILIE CORRAL Attending Unavailable TALAMPAS, ABRIL D Primary Care Unavailable TALAMPAS, ABRIL D Primary Care Unavailable TALAMPAS, ABRIL D Referring Unavailable JASMIN AVENDANO Referring Unavailable JASMIN AVENDANO Attending Unavailable TALAMPAS, ABRIL D Primary Care Unavailable TALAMPAS, ABRIL D Primary Care Unavailable TALAMPAS, ABRIL D Referring Unavailable Allergies Allergy Classification Reported Allergen(s) Allergy Type Date of Onset Reaction(s) Facility (20 sources) acetaminophen; Translations: [ACETAMINOPHEN] Drug Allergy 7 Intolerance [facility] Repository (20 sources) albuterol; Translations: [ALBUTEROL SULFATE] Drug Allergy 2 Other: See Comments [facility] Repository (20 sources) aspirin; Translations: [ASPIRIN] Drug Allergy 7 [facility] Repository (20 sources) iodine; Translations: [IODINE] Drug Allergy 6 [facility] Repository (20 sources) nabumetone; Translations: [NABUMETONE] Drug Allergy 7 Intolerance [facility] Repository (20 sources) pregabalin; Translations: [PREGABALIN] Drug Allergy 1 Swelling [facility] Repository Medications Current Medications Medication Drug Class(es) Dates Sig (Normalized) Sig (Original) ferrous sulfate 325 mg oral tablet (12 sources) Start: 06-18-2021 End: 03-29-2022 take 1 tablet by mouth three times daily at mealtime ferrous sulfate 325 mg (65 mg iron) tablet Take 1 tablet by mouth three times daily with meals. 90 tablet 11 06/18/2021 03/29/2022 Discontinued Completed/Discontinued Medications Medication Drug Class(es) Dates Sig (Normalized) Sig (Original) [id number] 200 actuat albuterol 0.09 mg/actuat metered dose inhaler (20 sources) beta2-Adrenergic Agonist Start: 02-28-2023 End: 09-11-2023 take 2 puff(s) by inhalation every six hours as needed for wheezing albuterol HFA (VENTOLIN HFA) 90 mcg/actuation inhaler Indications: Stage 2 moderate COPD by GOLD classification ([facility]) Inhale 2 Puffs as instructed every 6 hours as needed. For wheezing/shortness of breath 18 g 5 09/11/2023 Active Problems Active Problems Problem Classification Problem Date Documented Date Episodic/Chronic Acquired foot deformities (20 sources) Acquired hallux valgus; Translations: [Hallux valgus (acquired), unspecified foot] Onset: 03-20-2010 01-15-2016 Chronic Acquired foot deformities (1 source) Hallux valgus; Translations: [Bunion of right foot] Episodic Cardiac dysrhythmias (1 source) Palpitations; Translations: [Palpitations] Episodic Chronic kidney disease (20 sources) Chronic kidney disease stage 3; Translations: [CKD (chronic kidney disease) stage 3, GFR 30-59 ml/min] Onset: 08-27-2017 08-27-2017 Chronic Chronic obstructive pulmonary disease and bronchiectasis (20 sources) Chronic obstructive lung disease; Translations: [Chronic obstructive pulmonary disease, unspecified] Onset: 11-21-2005 Chronic Conditions associated with dizziness or vertigo (1 source) Dizziness; Translations: [Dizziness and giddiness] Episodic Congestive heart failure; nonhypertensive (20 sources) Chronic diastolic heart failure; Translations: [Chronic diastolic (congestive) heart failure] Onset: 11-06-2020 Chronic Coronary atherosclerosis and other heart disease (20 sources) Coronary atherosclerosis; Translations: [Atherosclerotic heart disease of [place] coronary artery without angina pectoris] Onset: 11-13-2007 11-03-2020 Chronic Deficiency and other anemia (20 sources) Anemia co-occurrent and due to chronic kidney disease stage 3; Translations: [Anemia of chronic renal failure, stage 3 (moderate)] Onset: 09-01-2020 09-01-2020 Chronic Delirium, dementia, and amnestic and other cognitive disorders (3 sources) Dementia; Translations: [Unspecified dementia without behavioral disturbance] Onset: 12-10-2023 12-10-2023 Chronic Diabetes mellitus with complications (20 sources) Disorder of nervous system due to diabetes mellitus; Translations: [Type 2 diabetes mellitus with other diabetic neurological complication] Onset: 03-20-2010 09-05-2015 Chronic Diabetes mellitus without complication (2 sources) Diabetes mellitus without complication; Translations: [Type 2 diabetes mellitus with stage 3a chronic kidney disease, without long-term current use of insulin (HCC)] Onset: 11-16-2021 Disorders of lipid metabolism (20 sources) Hyperlipidemia; Translations: [Hyperlipidemia, unspecified] Onset: 08-15-2005 08-27-2017 Chronic Esophageal disorders (20 sources) Gastroesophageal reflux disease; Translations: [Gastro-esophageal reflux disease without esophagitis] Onset: 08-21-2007 08-21-2007 Chronic Essential hypertension (20 sources) Essential (primary) hypertension; Translations: [Essential hypertension] Onset: 09-05-2015 09-05-2015 Chronic Genitourinary symptoms and ill-defined conditions (1 source) Nocturia; Translations: [Nocturia] Episodic Hypertension with complications and secondary hypertension (20 sources) Hypertensive heart AND chronic kidney disease with congestive heart failure; Translations: [Hypertensive heart and chronic kidney disease with heart failure and stage 1 through stage 4 chronic kidney disease, or unspecified chronic kidney disease] Onset: 11-16-2021 11-16-2021 Chronic Immunizations and screening for infectious disease (2 sources) Needs influenza immunization; Translations: [Encounter for immunization] Episodic Nutritional deficiencies (20 sources) Vitamin D deficiency; Translations: [Vitamin D deficiency, unspecified] Onset: 10-12-2007 01-03-2015 Chronic Other aftercare (1 source) Patient encounter status; Translations: [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] Episodic Other connective tissue disease (2 sources) Recurrent falls ; Translations: [Repeated falls] 12-10-2023 Episodic Other lower respiratory disease (1 source) Dyspnea; Translations: [Shortness of breath] Episodic Other lower respiratory disease (1 source) Hypoxemia; Translations: [Hypoxemia] Episodic Other upper respiratory disease (20 sources) Chronic rhinitis; Translations: [Chronic rhinitis] Onset: 03-29-2008 03-29-2008 Chronic Other upper respiratory disease (1 source) Rhinitis; Translations: [Chronic rhinitis] Chronic Other upper respiratory disease (1 source) Chronic rhinitis; Translations: [Chronic rhinitis] Onset: 03-29-2008 Chronic Peripheral and visceral atherosclerosis (20 sources) Peripheral vascular disease, unspecified; Translations: [Peripheral vascular disease, unspecified] Onset: 06-02-2018 06-02-2018 Chronic Pulmonary heart disease (20 sources) Pulmonary hypertension; Translations: [Pulmonary hypertension, unspecified] Onset: 05-30-2022 Chronic Residual codes; unclassified (20 sources) Sleep apnea; Translations: [Sleep apnea, unspecified] Onset: 08-21-2007 08-27-2017 Chronic Residual codes; unclassified (1 source) Obstructive sleep apnea syndrome; Translations: [Obstructive sleep apnea (adult) (pediatric)] Chronic Residual codes; unclassified (2 sources) Amnesia; Translations: [Other amnesia] 12-10-2023 Episodic Residual codes; unclassified (1 source) Other amnesia; Translations: [Memory loss] Onset: 12-10-2023 Episodic Respiratory failure; insufficiency; arrest (adult) (20 sources) Chronic hypoxemic respiratory failure; Translations: [Chronic respiratory failure with hypoxia] Onset: 05-30-2022 Chronic Retinal detachments; defects; vascular occlusion; and retinopathy (20 sources) Age related macular degeneration; Translations: [Unspecified macular degeneration] Onset: 11-24-2007 02-24-2008 Chronic Screening and history of mental health and substance abuse codes (1 source) Ex-smoker; Translations: [Personal history of nicotine dependence] 09-01-2023 Episodic Syncope (1 source) Syncope; Translations: [Syncope and collapse] Episodic Unclassified (1 source) Unknown / UNK(Unknown) Onset: 01-19-2018 Past or Other Problems Problem Classification Problem Date Documented Da te Episodic/Chronic Coronary atherosclerosis and other heart disease (20 sources) Stented coronary artery; Translations: [Presence of coronary angioplasty implant and graft] Onset: 08-16-2014 08-16-2014 Episodic Other bone disease and musculoskeletal deformities (20 sources) Osteopenia; Translations: [Other specified disorders of bone density and structure, multiple sites] Onset: 03-11-2017 06-02-2018 Episodic Residual codes; unclassified (20 sources) Edema of lower leg ; Translations: [Localized edema] Onset: 10-10-2015 10-10-2015 Episodic Results Test Name Value Interpretation Reference Range Facil ity Vital Signs Date Time Vital Sign Value Performing Clinician Parul allred 12-10-2023 09:21-0500 Body weight 55.79 kg Mia Haywood PA-C Work Phone: [facility] 12-10-2023 09:21-0500 Diastolic blood pressure 76 mm[Hg] Mia Haywood PA-C Work Phone: [facility] 12-10-2023 09:21-0500 Heart rate 68 /min Mia Haywood PA-C Work Phone: [facility] 12-10-2023 09:21-0500 Respiratory rate 18 /min Mia Haywood PA-C Work Phone: [facility] 12-10-2023 09:21-0500 SaO2% (BldA) [Mass fraction] 97 % Mia Haywood PA-C Work Phone: [facility] 12-10-2023 09:21-0500 Systolic blood pressure 140 mm[Hg] Mia Haywood PA-C Work Phone: [facility] 09-16-2023 09:01-0500 Body weight 55.79 kg Anna Dilma GIFT CONSULTANT.BUILDING COORDINATOR Work Phone: [facility] 09-16-2023 09:01-0500 Diastolic blood pressure 44 mm[Hg] Anna Dilma GIFT CONSULTANT.BUILDING COORDINATOR Work Phone: [facility] 09-16-2023 09:01-0500 Heart rate 70 /min Anna Dilma GIFT CONSULTANT.BUILDING COORDINATOR Work Phone: [facility] 09-16-2023 09:01-0500 SaO2% (BldA) [Mass fraction] 95 % Anna Dilma GIFT CONSULTANT.BUILDING COORDINATOR Work Phone: [facility] 09-16-2023 09:01-0500 Systolic blood pressure 110 mm[Hg] Anna Dilma GIFT CONSULTANT.BUILDING COORDINATOR Work Phone: [facility] 09-15-2023 10:06-0500 Body weight 55.79 kg Emilie Corral MD Work Phone: [facility] 09-15-2023 10:06-0500 Diastolic blood pressure 77 mm[Hg] Emilie Corral MD Work Phone: [facility] 09-15-2023 10:06-0500 Heart rate 77 /min Emilie Corral MD Work Phone: [facility] 09-15-2023 10:06-0500 Respiratory rate 16 /min Emilie Corral MD Work Phone: [facility] 09-15-2023 10:06-0500 SaO2% (BldA) [Mass fraction] 92 % Emilie Corral MD Work Phone: [facility] 09-15-2023 10:06-0500 Systolic blood pressure 148 mm[Hg] Emilie Corral MD Work Phone: [facility] 09-01-2023 09:20-0400 Body weight 55.79 kg Jasmin Avendano MD Work Phone: [facility] 09-01-2023 09:20-0400 Diastolic blood pressure 66 mm[Hg] Jasmin Avendano MD Work Phone: [facility] 09-01-2023 09:20-0400 Heart rate 62 /min Jasmin Avendano MD Work Phone: [facility] 09-01-2023 09:20-0400 Respiratory rate 16 /min Jasmin Avendano MD Work Phone: [facility] 09-01-2023 09:20-0400 SaO2% (BldA) [Mass fraction] 93 % Jasmin Avendano MD Work Phone: [facility] 09-01-2023 09:20-0400 Systolic blood pressure 112 mm[Hg] Jasmin Avendano MD Work Phone: [facility] 03-14-2023 08:44-0400 Body weight 56.7 kg Abril Salas MD Work Phone: [facility] 03-14-2023 08:44-0400 Diastolic blood pressure 68 mm[Hg] Abril Salas MD Work Phone: [facility] 03-14-2023 08:44-0400 Heart rate 64 /min Abril Salas MD Work Phone: [facility] 03-14-2023 08:44-0400 Respiratory rate 14 /min Abril Salas MD Work Phone: [facility] 03-14-2023 08:44-0400 Systolic blood pressure 124 mm[Hg] Abril Salas MD Work Phone: [facility] 02-28-2023 08:50-0400 Body weight 55.79 kg Miladis Karissa PA-C Work Phone: [facility] 02-28-2023 08:50-0400 Heart rate 64 /min Miladis Karissa PA-C Work Phone: [facility] 02-28-2023 08:50-0400 Respiratory rate 14 /min Miladis Karissa PA-C Work Phone: [facility] 02-28-2023 08:50-0400 SaO2% (BldA) [Mass fraction] 92 % Miladis Karissa PA-C Work Phone: [facility] 02-17-2023 13:44-0400 Body weight 57.61 kg Emilie Corral MD Work Phone: [facility] 02-17-2023 13:44-0400 Diastolic blood pressure 60 mm[Hg] Emilie Corral MD Work Phone: [facility] 02-17-2023 13:44-0400 Heart rate 70 /min Emilie Corral MD Work Phone: [facility] 02-17-2023 13:44-0400 Systolic blood pressure 132 mm[Hg] Emilie Corral MD Work Phone: [facility] 09-25-2022 11:05-0500 Body weight 56.7 kg Abril Salas MD Work Phone: [facility] 09-25-2022 11:05-0500 Diastolic blood pressure 70 mm[Hg] Abril Salas MD Work Phone: [facility] 09-25-2022 11:05-0500 Heart rate 79 /min Abril Salas MD Work Phone: [facility] 09-25-2022 11:05-0500 SaO2% (BldA) [Mass fraction] 95 % Abril Salas MD Work Phone: [facility] 09-25-2022 11:05-0500 Systolic blood pressure 128 mm[Hg] Abril Salas MD Work Phone: [facility] 08-30-2022 09:13-0400 Body height 149.9 cm Jasmin Avendano MD Work Phone: [facility] 08-30-2022 09:13-0400 Body weight 57.15 kg Jasmin Avendano MD Work Phone: [facility] 08-30-2022 09:13-0400 Diastolic blood pressure 60 mm[Hg] Jasmin Avendano MD Work Phone: [facility] 08-30-2022 09:13-0400 Heart rate 64 /min Jasmin Avendano MD Work Phone: [facility] 08-30-2022 09:13-0400 Respiratory rate 14 /min Jasmin Avendano MD Work Phone: [facility] 08-30-2022 09:13-0400 SaO2% (BldA) [Mass fraction] 98 % Jasmin Avendano MD Work Phone: [facility] 08-30-2022 09:13-0400 Systolic blood pressure 122 mm[Hg] Jasmin Avendano MD Work Phone: [facility] 08-30-2022 09:09-0400 Body height 149.9 cm Respiratory Wstr Work Phone: [facility] 08-30-2022 09:09-0400 Body weight 57.15 kg Respiratory Wstr Work Phone: [facility] 08-30-2022 09:09-0400 Heart rate 64 /min Respiratory Wstr Work Phone: [facility] 08-30-2022 09:09-0400 Respiratory rate 14 /min Respiratory Wstr Work Phone: [facility] 08-30-2022 09:09-0400 SaO2% (BldA) [Mass fraction] 98 % Respiratory Wstr Work Phone: [facility] 08-19-2022 11:20-0400 Body weight 56.7 kg Emilie Corral MD Work Phone: [facility] 08-19-2022 11:20-0400 Diastolic blood pressure 60 mm[Hg] Emilie Corral MD Work Phone: [facility] 08-19-2022 11:20-0400 Heart rate 68 /min Emilie Corral MD Work Phone: [facility] 08-19-2022 11:20-0400 Systolic blood pressure 124 mm[Hg] Emilie Corral MD Work Phone: [facility] 05-30-2022 08:57-0400 Body weight 57.61 kg Miladis Karissa PA-C Work Phone: [facility] 05-30-2022 08:57-0400 Diastolic blood pressure 64 mm[Hg] Miladis Karissa PA-C Work Phone: [facility] 05-30-2022 08:57-0400 Heart rate 60 /min Miladis Karissa PA-C Work Phone: [facility] 05-30-2022 08:57-0400 Respiratory rate 17 /min Miladis Karissa PA-C Work Phone: [facility] 05-30-2022 08:57-0400 SaO2% (BldA) [Mass fraction] 94 % Miladis Karissa PA-C Work Phone: [facility] 05-30-2022 08:57-0400 Systolic blood pressure 102 mm[Hg] Miladis Karissa PA-C Work Phone: [facility] 03-29-2022 08:39-0400 Body weight 53.98 kg Ady Ignacio MD Work Phone: [facility] 03-29-2022 08:39-0400 Diastolic blood pressure 58 mm[Hg] Ady Ignacio MD Work Phone: [facility] 03-29-2022 08:39-0400 Heart rate 57 /min Ady Ignacio MD Work Phone: [facility] 03-29-2022 08:39-0400 Respiratory rate 16 /min Ady Ignacio MD Work Phone: [facility] 03-29-2022 08:39-0400 SaO2% (BldA) [Mass fraction] 97 % Ady Ignacio MD Work Phone: [facility] 03-29-2022 08:39-0400 Systolic blood pressure 122 mm[Hg] Ady Ignacio MD Work Phone: [facility] 02-11-2022 15:16-0400 Body weight 55.34 kg Leonel Paniagua MD Work Phone: [facility] 02-11-2022 15:16-0400 Diastolic blood pressure 60 mm[Hg] Leonel Paniagua MD Work Phone: [facility] 02-11-2022 15:16-0400 Heart rate 72 /min Leonel Paniagua MD Work Phone: [facility] 02-11-2022 15:16-0400 Systolic blood pressure 120 mm[Hg] Leonel Paniagua MD Work Phone: [facility] 02-01-2022 13:48-0400 Body weight 55.7 kg Respiratory Wstr Work Phone: [facility] 01-28-2022 08:32-0400 Body temperature 99.39 [degF] Emerson Calvo MD Work Phone: [facility] 01-28-2022 08:32-0400 Body weight 54.61 kg Emerson Calvo MD Work Phone: [facility] 01-28-2022 08:32-0400 Diastolic blood pressure 76 mm[Hg] Emerson Calvo MD Work Phone: [facility] 01-28-2022 08:32-0400 Heart rate 76 /min Emerson Calvo MD Work Phone: [facility] 01-28-2022 08:32-0400 Respiratory rate 16 /min Emerson Calvo MD Work Phone: [facility] 01-28-2022 08:32-0400 SaO2% (BldA) [Mass fraction] 88 % Emerson Calvo MD Work Phone: [facility] 01-28-2022 08:32-0400 Systolic blood pressure 146 mm[Hg] Emerson Calvo MD Work Phone: [facility] Encounters Encounter Date Encounter Type Care Provider Facility Start: 12-11-2023 Telephone encounter Rose Khan Start: 12-10-2023 End: 12-11-2023 ambulatory Mia Haywood PA-C Work Phone: Neurology Procedures Date Procedure Procedure Detail Performing Clinician Start: 09-15-2023 Ecg routine ecg w/le ast 12 lds i&r only [facility] Provider Start: 09-01-2023 INFLUENZA VACCINE, P RSV FREE, AGE 65+ YR, HIGH DOSE, QUADRIVALENT (FLUZONE HIGH-DOSE) Jasmin Avendano MD Work Phone: Start: 08-30-2022 INFLUENZA SEASONAL QUADRIVALENT HIGH DOSE AGE 65+ Jasmin Avendano MD Work Phone: Start: 08-30-2022 Spmtry w/vc expirato ry xiomara w/wo mxml vol vntj Miladis Foster PA-C Work Phone: Start: 02-01-2022 Noninvasive ear/puls e oximetry multiple deter Emerson Calvo MD Work Phone: Start: 01-28-2022 Radiologic exam ches t 2 views Emerson Calvo MD Work Phone: Plan of Treatment Date Care Activity Detail Author Start: 04-05-2025 Urine microalbumin profile [facility] Start: 09-08-2024 Hepatitis B screening Urine Al bumin:Creatinine Ratio [facility] Start: 09-08-2024 Hepatitis B surface antibody level LDL Cholesterol [facility] Start: 06-19-2024 Glaucoma screening Dilated Retinal E xam [facility] Start: 06-19-2024 Hepatitis C antibody , confirmatory test Dilated Retinal Exam [facility] Start: 03-14-2024 3 comp foot exam completed DIABETIC FOOT EXAM [facility] Start: 03-14-2024 COVID-19 VACCINE (3 - Booster for Pfizer series) COVID-19 VACCINE (3 - Booster for Pfizer series) [facility] Immunizations Immunization Date Immunization Notes Care Provider Fa sangeeta 09-01-2023 influenza (HD-IIV4) vaccine, age 65+ yr, high dose, quadrivalent, PF (FLUZONE HIGH-DOSE) Jasmin Avendano MD Work Phone: [facility] 08-30-2022 influenza, high-dose , quadrivalent vaccine (FLUZONE HIGH DOSE QUADRIVALENT) Respiratory Wstr Work Phone: [facility] 08-30-2022 influenza virus vaccine, unspecified formulation Abril Salas MD Work Phone: [facility] 07-17-2021 influenza, high-dose , quadrivalent vaccine (FLUZONE HIGH DOSE QUADRIVALENT) Emerson Calvo MD Work Phone: [facility] Work Phone: 12-25-2020 COVID-19 vaccine, ag e 12+ yr (PFIZER-BIONTECH - PURPLE TOP) Emerson Calvo MD Work Phone: [facility] Work Phone: 11-27-2020 COVID-19 vaccine, ag e 12+ yr (PFIZER-BIONTECH - PURPLE TOP) Emersno Calvo MD Work Phone: [facility] Work Phone: 07-13-2020 influenza, high-dose , quadrivalent vaccine (FLUZONE HIGH DOSE QUADRIVALENT) Emerson Calvo MD Work Phone: [facility] Work Phone: 09-06-2019 influenza, high dose seasonal, preservative-free Emerson Calvo MD Work Phone: [facility] Work Phone: 09-03-2018 influenza, high dose seasonal, preservative-free Emerson Calvo MD Work Phone: [facility] 08-15-2017 influenza, high dose seasonal, preservative-free Emerson Calvo MD Work Phone: [facility] 09-17-2016 influenza, high dose seasonal, preservative-free Emerson Calvo MD Work Phone: [facility] 08-24-2015 influenza, high dose seasonal, preservative-free Emerson Calvo MD Work Phone: [facility] 04-05-2015 tetanus and diphther ia toxoids, adsorbed, preservative free, for adult use (5 Lf of tetanus toxoid and 2 Lf of diphtheria toxoid) Emerson Calvo MD Work Phone: [facility] 01-03-2015 pneumococcal conjuga te vaccine, 13 valent Emerson Calvo MD Work Phone: [facility] 08-20-2013 influenza virus vaccine, unspecified formulation Emerson Calvo MD Work Phone: [facility] 09-12-2012 influenza virus vaccine, unspecified formulation Emerson Calvo MD Work Phone: [facility] Work Phone: 09-14-2011 influenza virus vaccine, unspecified formulation Emerson Calvo MD Work Phone: [facility] Work Phone: 08-03-2011 pneumococcal Conjuga te, unspecified formulation Anna Perera APRN.CNP Work Phone: [facility] Work Phone: 08-03-2011 pneumococcal vaccine , unspecified formulation Ady Ignacio MD Work Phone: [facility] Work Phone: 08-14-2010 influenza virus vaccine, unspecified formulation Emerson Calvo MD Work Phone: [facility] 07-28-2009 influenza virus vaccine, unspecified formulation Emerson Calvo MD Work Phone: [facility] 09-16-2008 influenza virus vaccine, unspecified formulation Emerson Calvo MD Work Phone: [facility] Work Phone: 10-01-2007 influenza virus vaccine, unspecified formulation Emerson Calvo MD Work Phone: [facility] Work Phone: 09-18-2006 influenza virus vaccine, unspecified formulation Emerson Calvo MD Work Phone: [facility] 09-12-2005 influenza virus vaccine, unspecified formulation Emerson Calvo MD Work Phone: [facility] Work Phone: 09-01-2003 pneumococcal polysaccharide vaccine, 23 valent Emerson Calvo MD Work Phone: [facility] Work Phone: 12-02-2002 diphtheria and tetan us toxoids, adsorbed for pediatric use Emerson Calvo MD Work Phone: [facility] Work Phone: Payers Date Payer Category Payer Self-pay [id number] 2005 Medicare [employer] THP [facility] [id number] 2005-Present [phone] [facility] [place] [address] [facility] [id number] 2005 Medicare [employer] MEDICARE THP [facility] [id number] 2005-Present [phone] [facility] [place] [address] [facility] [id number] 2005 Unknown [id number] 1935 Unknown [id number] Social History Date Type Detail Facility Start: 06-12-2017 End: 08-19-2022 Tobacco smoking status NHIS Ex-smoker [facility] Start: 11-03-1968 End: 11-03-1999 History of tobacco use Current smoker [facility] Start: 11-03-1968 End: 11-03-1999 History of tobacco use Cigarette Smoker [facility] Start: 01-28-2022 End: 12-10-2023 Alcohol intake Current non-drinker of alcohol (finding) [facility] Start: 11-14-2021 End: 03-11-2023 History SDOH Alcohol Frequency 1 [facility] Start: 11-14-2021 History SDOH Alcohol Std Drinks 98 [facility] Start: 11-14-2021 End: 03-11-2023 History SDOH Social Connections Phone 5 [facility] Start: 11-14-2021 End: 03-11-2023 History SDOH Social Connections Membership 2 [facility] Start: 11-14-2021 End: 03-11-2023 History SDOH Social Connections Living 4 [facility] Start: 11-14-2021 End: 03-11-2023 History SDOH Physical Activity DPW 0 [facility] Start: 07-12-2020 Education 10 [facility] Start: 1935 Sex Assigned At Not on file [facility] Start: 01-18-2022 End: 09-25-2022 Exposure to SARS-CoV-2 (event) Not sure [facility] Start: 06-12-2017 End: 03-11-2023 Cigarettes smoked current (pack per day) - Reported 1.3 [facility] Start: 06-12-2017 End: 08-19-2022 Tobacco use and exposure Smokeless tobacco non-user [facility] Work Phone: Start: 03-11-2023 End: 12-06-2023 Social connection and isolation panel [facility] Do you belong to any clubs or organizations such as tenriism groups, unions, fraternal or athletic groups, or school groups? No [facility] Are you now , , , , never or living with a partner? [facility] How often to you hav e a drink containing alcohol? Never [facility] How many standard dr inks containing alcohol do you have on a typical day? Patient does not drink [facility] Do you feel stress - tense, restless, nervous, or anxious, or unable to sleep at night because your mind is troubled all the time - these days [OSQ] Very much [facility] (I/We) worried wheth er (my/our) food would run out before (I/we) got money to buy more. Never true [facility] Medical Equipment Procedure Code Equipment Code Equipment Origin al Text Equipment Identifier Dates Start: 11-07-2017 End: 05-07-2023 Clinical Notes 05-04-2021 to 12-11-2023 Telephone Encounter - Rose Kearns MSW - 12/11/2023 12:16 PM ESTPatient Mia Sauer PA-C - 12/10/2023 9:22 AM ESTAnna Perera APRN.BUILDING COORDINATOR - 09/16/2023 9:03 AM EST Note Date & Type Note Facility 12-11-2023 Miscellaneous Notes Rigo spoke with patient daughter and reviewed [facility] [employer] services ie. Passport/Caregiver Support, Resource dept. Discussed different home delivered meal and medical alert buttons. Discussed [facility] as their website offers Older Adult Resource guide. Patient daughter has direct number for any other questions. Katherin notes that she will see if she can talk to patient about having [facility] come to the home for assessment to see if patient should qualify for any of their home care supportive services. documented in this encounter [facility] 12-10-2023 Note HNO ID: [id number] Author: MIA HAYWOOD PA-C Service: ? Author Type: Physician Medicaid Service Coordinator Type: Progress Notes Filed: 12/10/2023 16:33 Note Text: Neurology Outpatient Clinic Date: December 10, 2023 Patient Name: Kyle Arroyo Referring physician: No referring provider defined for this encounter. Primary physician: Abril Salas [address] [place] [address] Reason for Evaluation: memory loss Subjective HPI Kyle Arroyo is a 88 year old right-handed female with history of DM type 2, HLD, HTN, CAD, PAD, CHF, HTN, pulmonary HTN, COPD, anemia, macular degeneration, osteopenia who presents for evaluation of memory loss. Dr. Abril Salas MD is the PCP. Patient presents with her family for evaluation of memory loss. History is primarily obtained to the daughter. Patient states that her memory is normal, has no concerns today. Daughter notes that over the last 2 to 3 years she has noted some progressive worsening of her memory, started with short-term and is now having some long-term memories, forgetting who people are in photographs. No workup has been done, no medications for memory loss. Daughter noted today she was confused about the appointment time, generally gets confused whenever she tells her anything and has difficulty remembering conversations. Lives with her daughter, does not drive. Does cook for herself and occasionally will leave the stove on. Does not eat much throughout the day, has had some mild weight loss. Does not drink much water today. No sudden onset of symptoms, no strokelike symptoms. No history of stroke in the past. Daughter does note family history of 2 sisters with Alzheimer disease. Does not forget her self, no getting lost but does not go for walks. Is not very active, primarily watches TV all day and reads the newspaper. Patient has had a few falls, reporting 2-3 falls in the last few months. Notes that she falls because her left knee gives out on her. Last fall was when she was trying to take the trash out, witnessed by neighbor, no loss of consciousness or significant injury with this. Denies any back pain, bowel or bladder continence, saddle anesthesia. No generalized weakness. No lightheadedness or dizziness, no seizure-like activity, tongue biting. Daughter notes that she has fallen at times in the house as well. No anosmia, micrographia, REM sleep disorders, hallucinations. He does suffer from chronic constipation. Patient denies having a tremor but, but daughter states that she will occasionally do shakes. Daughter also notes that she feels that the neighbors are watching her from time to time. Patient denies any gait change, but daughter notes some change in her gait, shuffling. No family history of Parkinson's. No difficulty swallowing. Patient does have issues with sleeping at night. She notes that she sleeps well throughout the night, typically wakes up at 4 AM. However, daughter notes that the patient told her previously that she does not sleep throughout the night, was told to wear oxygen at night but does not tolerate this. States that she did have a sleep study and CPAP is not needed. No exposure to syphilis. Does have chronic hearing loss and wears her hearing aids. Labs/Imaging Medications: Current Outpatient Medications Medication Sig Dispense Refill isosorbide mononitrate ER (IMDUR) 30 mg 24 hr tablet Take 1 tablet by mouth once daily. 90 tablet 3 losartan (COZAAR) 25 mg tablet Take 1 tablet by mouth once daily. 90 tablet 3 amLODIPine (NORVASC) 5 mg tablet Take 1 tablet by mouth once daily. 30 tablet 5 nitroglycerin sublingual (NITROSTAT) 0.4 mg SL tablet Dissolve 1 tablet under the tongue as needed. DISSOLVE ON TONGUE FOR CHEST PAIN. IF NO PAIN RELIEF, CALL 911 (Patient to call when needs) 25 tablet 6 glipiZIDE (GLUCOTROL XL) 2.5 mg 24 hr tablet Take 1 tablet by mouth daily before breakfast. 90 tablet 3 CREON 24,000-76,000 -120,000 unit delayed release capsule Take 1 capsule by mouth three times a day. 90 capsule 2 albuterol HFA (VENTOLIN HFA) 90 mcg/actuation inhaler Inhale 2 Puffs as instructed every 6 hours as needed. For wheezing/shortness of breath 18 g 5 tiotropium bromide (SPIRIVA RESPIMAT) 2.5 mcg/actuation inhaler Inhale 2 Puffs as instructed once daily. 1 Each 11 mometasone-formoterol (DULERA) 200-5 mcg/actuation inhaler Inhale 1 Puff as instructed two times a day. 13 g 11 metoprolol tartrate, short acting, (LOPRESSOR) 100 mg tablet Take 1 tablet by mouth twice daily. 180 tablet 3 blood sugar diagnostic (ONETOUCH ULTRA TEST) test strip Test blood sugar twice daily Dx. Code: E11.40 200 Strip 3 lansoprazole (PREVACID) 30 mg capsule Take 1 capsule by mouth once daily. 90 capsule 3 atorvastatin (LIPITOR) 40 mg tablet Take 1 tablet by mouth once daily. 90 tablet 3 fluticasone (FLONASE) 50 mcg/actuation nasal spray Use 2 (more content not included)... [facility] 12-10-2023 Instructions Mia Haywood PA-C - 12/10/2023 10:08 AM EST MRI of the brain to look at the memory centers of the brain Laboratory studies Follow up after testing in 2-3 months documented in this encounter [facility] 12-10-2023 History of Present illness Narrative Images from the original note were not included. Neurology Outpatient Clinic Date: December 10, 2023 Patient Name: Kyle Arroyo Referring physician: No referring provider defined for this encounter. Primary physician: Abril Salas [address] [place] [address] Reason for Evaluation: memory loss Subjective HPI Kyle Arroyo is a 88 year old right-handed female with history of DM type 2, HLD, HTN, CAD, PAD, CHF, HTN, pulmonary HTN, COPD, anemia, macular degeneration, osteopenia who presents for evaluation of memory loss. Dr. Abril Salas MD is the PCP. Patient presents with her family for evaluation of memory loss. History is primarily obtained to the daughter. Patient states that her memory is normal, has no concerns today. Daughter notes that over the last 2 to 3 years she has noted some progressive worsening of her memory, started with short-term and is now having some long-term memories, forgetting who people are in photographs. No workup has been done, no medications for memory loss. Daughter noted today she was confused about the appointment time, generally gets confused whenever she tells her anything and has difficulty remembering conversations. Lives with her daughter, does not drive. Does cook for herself and occasionally will leave the stove on. Does not eat much throughout the day, has had some mild weight loss. Does not drink much water today. No sudden onset of symptoms, no strokelike symptoms. No history of stroke in the past. Daughter does note family history of 2 sisters with Alzheimer disease. Does not forget her self, no getting lost but does not go for walks. Is not very active, primarily watches TV all day and reads the newspaper. Patient has had a few falls, reporting 2-3 falls in the last few months. Notes that she falls because her left knee gives out on her. Last fall was when she was trying to take the trash out, witnessed by neighbor, no loss of consciousness or significant injury with this. Denies any back pain, bowel or bladder continence, saddle anesthesia. No generalized weakness. No lightheadedness or dizziness, no seizure-like activity, tongue biting. Daughter notes that she has fallen at times in the house as well. No anosmia, micrographia, REM sleep disorders, hallucinations. He does suffer from chronic constipation. Patient denies having a tremor but, but daughter states that she will occasionally do shakes. Daughter also notes that she feels that the neighbors are watching her from time to time. Patient denies any gait change, but daughter notes some change in her gait, shuffling. No family history of Parkinson's. No difficulty swallowing. Patient does have issues with sleeping at night. She notes that she sleeps well throughout the night, typically wakes up at 4 AM. However, daughter notes that the patient told her previously that she does not sleep throughout the night, was told to wear oxygen at night but does not tolerate this. States that she did have a sleep study and CPAP is not needed. No exposure to syphilis. Does have chronic hearing loss and wears her hearing aids. Labs/Imaging Medications: Current Outpatient Medications Medication Sig Dispense Refill isosorbide mononitrate ER (IMDUR) 30 mg 24 hr tablet Take 1 tablet by mouth once daily. 90 tablet 3 losartan (COZAAR) 25 mg tablet Take 1 tablet by mouth once daily. 90 tablet 3 amLODIPine (NORVASC) 5 mg tablet Take 1 tablet by mouth once daily. 30 tablet 5 nitroglycerin sublingual (NITROSTAT) 0.4 mg SL tablet Dissolve 1 tablet under the tongue as needed. DISSOLVE ON TONGUE FOR CHEST PAIN. IF NO PAIN RELIEF, CALL 911 (Patient to call when needs) 25 tablet 6 glipiZIDE (GLUCOTROL XL) 2.5 mg 24 hr tablet Take 1 tablet by mouth daily before breakfast. 90 tablet 3 CREON 24,000-76,000 -120,000 unit delayed release capsule Take 1 capsule by mouth three times a day. 90 capsule 2 albuterol HFA (VENTOLIN HFA) 90 mcg/actuation inhaler Inhale 2 Puffs as instructed every 6 hours as needed. For wheezing/shortness of breath 18 g 5 tiotropium bromide (SPIRIVA RESPIMAT) 2.5 mcg/actuation inhaler Inhale 2 Puffs as instructed once daily. 1 Each 11 mometasone-formoterol (DULERA) 200-5 mcg/actuation inhaler Inhale 1 Puff as instructed two times a day. 13 g 11 metoprolol tartrate, short acting, (LOPRESSOR) 100 mg tablet Take 1 tablet by mouth twice daily. 180 tablet 3 blood sugar diagnostic (ONETOUCH ULTRA TEST) test strip Test blood sugar twice daily Dx. Code: E11.40 200 Strip 3 lansoprazole (PREVACID) 30 mg capsule Take 1 capsule by mouth once daily. 90 capsule 3 atorvastatin (LIPITOR) 40 mg tablet Take 1 tablet by mouth once daily. 90 tablet 3 fluticasone (FLONASE) 50 mcg/actuation nasal spray Use 2 Sprays in each nostril once daily. Rinse mouth after use. 1 Each 0 furosemide (LASIX) 40 mg tablet Take 1 tablet by mouth once daily. May also take 1 tablet once daily as needed (increased leg swelling). 180 tablet 3 Lancets lancets Test blood sugar(s) once times daily. Dx: E11.49 Insulin: No 100 Each 11 sodium chloride (AYR, OCEAN) 0.65 % nasal spray Use 2 Sprays in the nose twice daily. Compression Knee Highs KNEE HIGH COMPRESSION STOCKINGS 20-30 MM HG. DX: EDEMA 1 Each 1 VIT C/MCKENNA AC/LUT/COPPER/ZNOX (PRESERVISION ORAL) Take by mouth twice daily. Yxcvmqovyoukw-Sngkojjc-Khgkdu (CENTRUM SILVER) tab Take 1 tablet by mouth once daily. 0 calcium carbonate/vitamin d3(CALCIUM 600 + D(3) 600 MG (1,500)-200 UNIT TAB) Take one(1) tablet twice daily. 0 No current facility-administered medications for this visit. ROS ROS: Her ROS was positive for that mentioned in the HPI. Otherwise a 10-point ROS was completed and was negative. ALLERGIES Allergen Reactions Aspirin Hives Iodine Hives Lyrica [Pregabalin] Swelling Leg edema, fluid retention, shortness of breath Nabumetone Intolerance muscle cramp Proair Hfa [Albuter* Other: See Comments INEFFECTIVE--NEEDS VENTOLIN HFA Tylenol [Acetaminop* Intolerance abd cramps, leg spasm Past Medical History: PAST MEDICAL HISTORY Diagnosis Date Anemia of chronic renal failure, stage 3 (moderate) ([facility]) ([facility]) 09/01/2020 Arrhythmia BENIGN NEOPLASM LG BOWEL 08/21/2007 Adenomatous polyp removed from Sigmoid in 1992 Colonoscopy 06-15-07 (sister with colon ca): left sided tics with no polyps or masses CHF (congestive heart failure) ([facility]) Chronic airway obstruction, not elsewhere classified Chronic bronchitis. CKD (chronic kidney disease) stage 3, GFR 30-59 ml/min ([facility]) 08/27/2017 Closed Colles' fracture of left radius 02/27/2017 Coronary artery disease Diverticulosis of colon (without mention of hemorrhage) DM Neuro Manif Type II 03/20/2010 Esophageal reflux 08/21/2007 Hallux valgus (acquired) 03/20/2010 MACULAR DEGENERATION NOS 11/24/2007 [facility] 10-21-07: L eye with MD s/p cataract extraction-stable Galvin 12-11: L eye YAG capsulotomy after cataract extraction 11-23-07, 20/40 R, count fingers L Oropharyngeal dysphagia 09/13/2015 Honey thickened liquids. Osteopenia Osteopenia of multiple sites (Clinical osteoporosis) 03/11/2017 Other and unspecified hyperlipidemia Other psoriasis and similar disorders Psoriasis PAD (peripheral artery disease) ([facility]) both lower extremities. 06/02/2018 Dr. Jose Luis Marie, Vascular Surgery Peripheral sensory neuropathy due to type 2 diabetes mellitus ([facility]) 01/15/2016 Restless legs syndrome (RLS) 08/21/2007 Unspecified essential hypertension Family History: FAMILY HISTORY Problem Relation Age of Onset Emphysema Mother Cancer Mother Lung Emphysema Father Heart Attack Father Alzheimer's Disease Sister Alzheimer's Disease Sister GI Sister pancreatitis Coronary Artery Disease Sister other (accident) Sister Colon Cancer Sister COPD Sister Emphysema other (unknown) Brother Cancer Brother lung Cancer Brother lung Asthma Daughter other (Chronic sinusiotis) Daughter Diabetes Son other (congestive heart failure) Son Cancer Niece breast Also includes: . Social History: Social History Tobacco Use Smoking status: Former Packs/day: 1.30 Years: 45.00 Additional pack years: 0.00 Total pack years: 58.50 Types: Cigarettes Start date: 11/03/1968 Quit date: 11/03/1999 Years since quittin.1 Smokeless tobacco: Never Vaping Use Vaping Use: Never used Substance Use Topics Alcohol use: No Drug use: No Objective 12/10/23 0921 BP: 140/76 Pulse: 68 Resp: 18 SpO2: 97% Weight: 55.8 kg (123 lb) Physical Examination MoCA: 07/02 Visuospatial: 0/5 Namin Instant recall: 05 Attention: 16 Language: 0/3 Abstraction: 0/2 Delayed recall: 0/5 Orientation: 56 Extra point added as patient did not graduate high school. General Appearance: Well appearing, alert, in no acute distress, well-hydrated, well nourished. Head: Normocephalic Pulm: Breathing comfortably Neck: Supple Psych: Cooperative, appropriate affect Neurological Examination: Mental Status: Alert and Oriented to Place, Person, Time and Situation and Patient follows commands.. Language: Is intact to Comprehension, Fluency and Repetition Cranial Nerves: Some difficulty following commands. CNII: Visual acuity normal, visual urrutia full to confrontation CNIII, IV, : Pupils equal, round and reactive to light, full extraoccular movements, without nystagmus CN V: Facial sensation intact bilaterally to fine touch CN VII: Facial muscles symmetric and strong CN VIII: Hears finger rub well bilaterally CN IX: Gag Reflex not examined CN X: Palate elevates symmetrically CN XI: Full strength shoulder shrug bilaterally CN XII: Tongue protrusion full and midline Motor Exam: Tone - Normal Tone noted in all extremities Bulk - Normal bulk noted in all muscles tested. Inspection - Normal, no fasciculations or tremors noted. Power: MUSCLES Upper Extremity RIGHT LEFT Deltoid 5/5 5/5 Biceps 5/5 5/5 Triceps 5/5 5/5 Wrist Extension 5/5 5/5 Wrist Flexion 5/5 5/5 Finger Flexion 5/5 5/5 Finger Extension 5/5 5/5 Finger Abd 5/5 5/5 Finger Add 5/5 5/5 MUSCLES Lower Extremity RIGHT LEFT Hip Flexion 5/5 5/5 Hip Extension 5/5 5/5 BiFem (Knee Flex) 5/5 5/5 Quads (Knee Ext) 5/5 5/5 Gastroc (Plantflx) 5/5 5/5 TibAnt (Dorsiflx) 5/5 5/5 FlxHLong (Toe Flex) 5/5 5/5 ExtHLong (Toe Ext) 5/5 5/5 Sensory Examination Unreliable, patient did not understand Reflexes: / throughout, negative hull Coordination: finger-to- nose-finger intact bilaterally and [id number]-px-[id number] intact bilaterally. Gait: Gait is wide-based, walks with her left arm at a 90 degree angle but does still swing. Turns in 3-4 steps. Romberg: Negative, but patient did not understand holding her arms outward. DATA REVIEWED Actual films/image/tracing reviewed and summarized as follows: None Old records reviewed and summarized as follows: Primary care Assessment/Plan Assessment & Plan: Kyle Arroyo is a 88 year old right-handed female with a history of DM type 2, HLD, HTN, CAD, PAD, CHF, HTN, pulmonary HTN, COPD, anemia, macular degeneration, osteopenia. Her examination demonstrates slow and wide based gait but no signs of shuffling. Difficulty obtaining physical exam as patient had difficulty following commands.. Patient presents with her daughter for concerns of memory loss. Patient denies any concerns but daughter is very concerned about possible neurodegenerative process. Patient with 2 sisters who had Alzheimer's disease. Onset of memory loss about 2 to 3 years ago with gradual progression, Hubertus today was 8/30. Patient does have hearing loss, was told to sleep with supplemental oxygen but does not. Has poor diet, and primarily watches TV during the day with little activity. Has had a few falls over the last few months due to her left knee giving out. Does report some shuffling gait, but this was not observed on exam today. At this time, concern for neurodegenerative process like Alzheimer's disease, will obtain MRI of the brain without contrast with volumetric analysis to assess for atrophy. Will also assess for possible vascular component contributing although exam is equal bilaterally today. Will also obtain basic laboratory studies as patient has poor diet to rule out common causes of memory loss. Encouraged conservative therapy including increasing physical activity, brain exercises, increasing water intake, increasing nutrition intake. Patient lives with family. Does not drive. Daughter does note that she tries it for self and does leave the stove on, expressed concern over this and daughter will monitor this. Did discuss medications, may avoid Aricept as patient is having some weight loss. Discussed possible Namenda and will defer until testing is complete. Regarding falls, unclear etiology for falls. Possible deconditioning contributing, but patient does have full strength in the lower extremities specifically. Does report some left knee pain, encouraged her to follow-up with primary care regarding this issue. Discussed increased caution at home to avoid falls, patient and family agree and understand. No dizziness, lightheadedness, seizure-like activity, strokelike symptoms contribute to falls. Low suspicion for Parkinson's at this time. Patient and family agreeable to treatment plan of care at this time, all questions were answered. Patient to follow up after studies are complete. Kyle was seen today for new patient evaluation. Diagnoses and all orders for this visit: Dementia without behavioral disturbance, psychotic disturbance, mood disturbance, or anxiety, unspecified dementia severity, unspecified dementia type (HCC) - METHYLMALONIC ACID; Future - VITAMIN B12 BLOOD; Future - FOLATE SERUM; Future - TSH BLD; Future - MRI BRAIN WO IVCON; Future - MRI 3D POST PROCESSING; Future - SYPHILIS TOTAL W/REFLEX; Future Memory loss - METHYLMALONIC ACID; Future - VITAMIN B12 BLOOD; Future - FOLATE SERUM; Future - TSH BLD; Future - MRI BRAIN WO IVCON; Future - MRI 3D POST PROCESSING; Future - SYPHILIS TOTAL W/REFLEX; Future Frequent falls She should return to see me in 2 months. I spent a total of 50 minutes on the date of the service which included preparing to see the patient, [id number] patient care, completing clinical documentation, obtaining and/or reviewing separately obtained history, performing a medically appropriate examination, counseling and educating the patient/family/caregiver, and ordering medications, tests, or procedures. Mai Haywood PA-C [facility] Neurology This document has been created with the use of voice recognition technology. It may contain inaccuracies: (e.g. misspellings, inaccurate syntax or word sense) that have escaped review. 08/28/2023 PROMIS Global Health Physical Health Summary Physical health: Fair Everyday physical activity, ability: Not at all Fatigue: Severe Pain level: 7 General health: Fair Social activities/roles, ability: Fair Physical Health T-Score (Poor) Physical Health Percentile PROMIS Global Health Mental Health Summary Quality of life: Fair Mental health (mood,thinking): Fair Social satisfaction: Fair Emotional problems (anxious,depressed): Mental Health T-Score Mental Health Percentile PHQ-9 Score: 20(Severe Depression) PHQ-9 Self-Harm: HARJIT-7 Score: (Severe Anxiety) NEURO-QOL Cognitive Function T-Score 29(Severe Dysfunction) Neuro-Qol Cognitive Function Percentile 2 PROMIS Physical Function T-Score 24(Severe Dysfunction) PROMIS Physical Function Percentile 0 PROMIS Pain Interference T-Score 65(Moderate) PROMIS Pain Interference Percentile 7 Percentiles provide an indication of how a patient's score ranks in relation to the [place] general population. > 31st percentile is within normal limits or better *< 31st percentile is at least SD worse than population, which may be clinically relevant < 16th percentile is at least 1 SD worse than population and warrants attention 12/06/2023 Sleep Apnea Probability Snores loudly: Yes Tired, fatigued or sleepy in daytime: Yes Stops breathing or choking/gasping during sleep: Yes High blood pressure: Yes Sleep Apnea Probability Score: 67 (Recommend sleep study) Addendum 12/10/23 at 1632 Patient's family wrote in with Induction [employer] message stating that patient lives alone just up the road from them, but they are concerned about safety. Offered social work consult, response pending. Mia Haywood PA-C documented in this encounter [facility] 11-27-2023 Note HNO ID: [id number] Author: ADONIS GIBSON, ? Service: ? Author Type: Physician Type: Progress Notes Filed: 11/27/2023 12:14 Note Text: Last time saw pcp: 09/16/23 Initial Office Visit Subjective: This 88 year old female presents to clinic for diabetic foot check. Patient has the following complaints: ingrowing toenail of left hallux. Patient admits to being diabetic for a couple years now. Patient -B/T/N in feet at this time. Patient -pain in legs when walking. No other pedal complaints at this time. No change in medications or medical history since last visit. PAIN EVALUATION 11/24/2023 0241 11/27/2023 1109 Pain Level: 9 9 Pain Location: -- Toe Big toe to left foot Description: Sharp Sharp Duration Amount of Time: 8 -- Duration Units: Months -- Frequency: Continuous Continuous Intervention/Comfort measure: Support surface Reposition Hemoglobin A1C (%) Date Value 09/08/2023 6.3 03/14/2023 6.2 09/25/2022 6.1 03/25/2022 6.1 11/16/2021 6.6 01/25/2021 6.5 07/11/2020 5.9 04/06/2020 5.8 04/06/2019 5.8 Hemoglobin A1C (POCT) (%) Date Value 07/17/2021 5.8 PCP: Abril Salas MD PAST MEDICAL HISTORY Diagnosis Date Anemia of chronic renal failure, stage 3 (moderate) ([facility]) ([facility]) 09/01/2020 Arrhythmia BENIGN NEOPLASM LG BOWEL 08/21/2007 Adenomatous polyp removed from Sigmoid in 1992 Colonoscopy 06-15-07 (sister with colon ca): left sided tics with no polyps or masses CHF (congestive heart failure) ([facility]) Chronic airway obstruction, not elsewhere classified Chronic bronchitis. CKD (chronic kidney disease) stage 3, GFR 30-59 ml/min ([facility]) 08/27/2017 Closed Colles' fracture of left radius 02/27/2017 Coronary artery disease Diverticulosis of colon (without mention of hemorrhage) DM Neuro Manif Type II 03/20/2010 Esophageal reflux 08/21/2007 Hallux valgus (acquired) 03/20/2010 MACULAR DEGENERATION NOS 11/24/2007 [facility] 10-21-07: L eye with MD s/p cataract extraction-[facility] 2-08: L eye YAG capsulotomy after cataract extraction 11-23-07, 20/40 R, count fingers L Oropharyngeal dysphagia 09/13/2015 Honey thickened liquids. Osteopenia Osteopenia of multiple sites (Clinical osteoporosis) 03/11/2017 Other and unspecified hyperlipidemia Other psoriasis and similar disorders Psoriasis PAD (peripheral artery disease) ([facility]) both lower extremities. 06/02/2018 Dr. Jose Luis Marie, Vascular Surgery Peripheral sensory neuropathy due to type 2 diabetes mellitus ([facility]) 01/15/2016 Restless legs syndrome (RLS) 08/21/2007 Unspecified essential hypertension Current Outpatient Medications Medication Sig isosorbide mononitrate ER (IMDUR) 30 mg 24 hr tablet Take 1 tablet by mouth once daily. losartan (COZAAR) 25 mg tablet Take 1 tablet by mouth once daily. amLODIPine (NORVASC) 5 mg tablet Take 1 tablet by mouth once daily. nitroglycerin sublingual (NITROSTAT) 0.4 mg SL tablet Dissolve 1 tablet under the tongue as needed. DISSOLVE ON TONGUE FOR CHEST PAIN. IF NO PAIN RELIEF, CALL 911 (Patient to call when needs) glipiZIDE (GLUCOTROL XL) 2.5 mg 24 hr tablet Take 1 tablet by mouth daily before breakfast. CREON 24,000-76,000 -120,000 unit delayed release capsule Take 1 capsule by mouth three times a day. albuterol HFA (VENTOLIN HFA) 90 mcg/actuation inhaler Inhale 2 Puffs as instructed every 6 hours as needed. For wheezing/shortness of breath tiotropium bromide (SPIRIVA RESPIMAT) 2.5 mcg/actuation inhaler Inhale 2 Puffs as instructed once daily. mometasone-formoterol (DULERA) 200-5 mcg/actuation inhaler Inhale 1 Puff as instructed two times a day. metoprolol tartrate, short acting, (LOPRESSOR) 100 mg tablet Take 1 tablet by mouth twice daily. blood sugar diagnostic (Advanced Ophthalmic PharmaTOUCH ULTRA TEST) test strip Test blood sugar twice daily Dx. Code: E11.40 lansoprazole (PREVACID) 30 mg capsule Take 1 capsule by mouth once daily. atorvastatin (LIPITOR) 40 mg tablet Take 1 tablet by mouth once daily. fluticasone (FLONASE) 50 mcg/actuation nasal spray Use 2 Sprays in each nostril once daily. Rinse mouth after use. furosemide (LASIX) 40 mg tablet Take 1 tablet by mouth once daily. May also take 1 tablet once daily as needed (increased leg swelling). Lancets lancets Test blood sugar(s) once times daily. Dx: E11.49 Insulin: No sodium chloride (AYR, OCEAN) 0.65 % nasal spray Use 2 Sprays in the nose twice daily. Compression Knee Highs KNEE HIGH COMPRESSION STOCKINGS 20-30 MM HG. DX: EDEMA VIT C/MCKENNA AC/LUT/COPPER/ZNOX (PRESERVISION ORAL) Take by mouth twice daily. Zpvwehoobkezv-Zujrhhog-Vqrolb (CENTRUM SILVER) tab Take 1 tablet by mouth once daily. calcium carbonate/vitamin d3(CALCIUM 600 + D(3) 600 MG (1,500)-200 UNIT TAB) Take one(1) tablet twice daily. No current facility-administered medications for this visit. ALLERGIES Allergen Reactions Aspirin Hives Iodine Hives Lyrica [Pregabalin] Swelling Leg edema, fluid retention, (more content not included)... [facility] 11-27-2023 Note HNO ID: [id number] Author: NALDO BOBBY, ARAVIND Service: ? Author Type: Registered Nurse Type: Progress Notes Filed: 11/27/2023 12:14 Note Text: AMB ROOMING INTAKE FLOWSHEET DATA Risk Screening Do you have concerns about personal safety or safety in the home?: No Pain Pain Level: 9 Pain Location: Toe (Big toe to left foot) Description: Sharp Frequency: Continuous Intervention/Comfort measure: Reposition Patient presents with: Left Foot - New, Diabetic Foot Care Right Foot - New, Diabetic Foot Care Patient presents for diabetic foot care. States that she has seen other insecticide mixer for this, but they cut her nails too short and she has had problems since, particularly with left big toe. [facility] 09-16-2023 Note HNO ID: [id number] Author: Anna Perera APRN.FREDI Service: ? Author Type: Nurse Practitioner Type: Progress Notes Filed: 09/16/2023 4:23 PM Note Text: SUBJECTIVE Kyle Arroyo is a 87 year old female here today for a check up on her medical problems. Chief Complaint Patient presents with: F/U 6 months HPI Kyle Arroyo is a 87 year old female. Established patient of Dr. Salas. Here today for a 6 month follow up. Follows with cardiology, pulmonology. Overall doing okay. Accompanied by daughter who helps with her care, and her son. Has been recommended to use oxygen at home in the past but does not want to. Twice a week taking nitro. Sometimes has to take x2 doses. Does not ever require a third dose. Had labs done prior to visit today. Her medications were reviewed today and her list is now up to date. Medications Current Outpatient Medications Medication Sig albuterol HFA (VENTOLIN HFA) 90 mcg/actuation inhaler Inhale 2 Puffs as instructed every 6 hours as needed. For wheezing/shortness of breath tiotropium bromide (SPIRIVA RESPIMAT) 2.5 mcg/actuation inhaler Inhale 2 Puffs as instructed once daily. mometasone-formoterol (DULERA) 200-5 mcg/actuation inhaler Inhale 1 Puff as instructed two times a day. metoprolol tartrate, short acting, (LOPRESSOR) 100 mg tablet Take 1 tablet by mouth twice daily. amLODIPine (NORVASC) 5 mg tablet Take 1 tablet by mouth once daily. lansoprazole (PREVACID) 30 mg capsule Take 1 capsule by mouth once daily. atorvastatin (LIPITOR) 40 mg tablet Take 1 tablet by mouth once daily. losartan (COZAAR) 25 mg tablet Take 1 tablet by mouth once daily. glipiZIDE (GLUCOTROL XL) 2.5 mg 24 hr tablet Take 1 tablet by mouth daily before breakfast. fluticasone (FLONASE) 50 mcg/actuation nasal spray Use 2 Sprays in each nostril once daily. Rinse mouth after use. isosorbide mononitrate ER (IMDUR) 30 mg 24 hr tablet Take 1 tablet by mouth once daily. furosemide (LASIX) 40 mg tablet Take 1 tablet by mouth once daily. May also take 1 tablet once daily as needed (increased leg swelling). nitroglycerin sublingual (NITROSTAT) 0.4 mg SL tablet Dissolve 1 tablet under the tongue as needed. DISSOLVE ON TONGUE FOR CHEST PAIN. IF NO PAIN RELIEF, CALL 911 (Patient to call when needs) sodium chloride (AYR, OCEAN) 0.65 % nasal spray Use 2 Sprays in the nose twice daily. VIT C/MCKENNA AC/LUT/COPPER/ZNOX (PRESERVISION ORAL) Take by mouth twice daily. Xbedawaozmano-Mwgbssay-Inzxfg (CENTRUM SILVER) tab Take 1 tablet by mouth once daily. calcium carbonate/vitamin d3(CALCIUM 600 + D(3) 600 MG (1,500)-200 UNIT TAB) Take one(1) tablet twice daily. CREON 24,000-76,000 -120,000 unit delayed release capsule Take 1 capsule by mouth three times a day. blood sugar diagnostic (ONETOUCH ULTRA TEST) test strip Test blood sugar twice daily Dx. Code: E11.40 Lancets lancets Test blood sugar(s) once times daily. Dx: E11.49 Insulin: No Compression Knee Highs KNEE HIGH COMPRESSION STOCKINGS 20-30 MM HG. DX: EDEMA Current Facility-Administered Medications Medication Dose Route Frequency perflutren lipid microspheres 1.3 mL in NaCl (PF) 0.9% 10 mL injection (DEFINITY) INTRAVENOUS DIRECTED PRN sodium chloride 0.9 % (flush) 10 mL (BD POSIFLUSH) 10 mL INTRAVENOUS DIRECTED PRN ALLERGIES Allergen Reactions Aspirin Hives Iodine Hives Lyrica [Pregabalin] Swelling Leg edema, fluid retention, shortness of breath Nabumetone Intolerance muscle cramp Proair Hfa [Albuter* Other: See Comments INEFFECTIVE--NEEDS VENTOLIN HFA Tylenol [Acetaminop* Intolerance abd cramps, leg spasm ACTIVE PROBLEM LIST Pulmonary Htn ([facility]) - 05/30/2022 Chronic Hypoxemic Respiratory Failure ([facility]) - 05/30/2022 Type 2 Diabetes Mellitus With Diabetic Peripheral Angiopathy Without Gangrene, Without Long-Term Current Use of Insulin ([facility]) - 11/16/2021 Type 2 Diabetes Mellitus With Stage 3b Chronic Kidney Disease, Without Long-Term Current Use of Insulin ([facility]) - 11/16/2021 Hypertensive Heart and Kidney Disease With Chronic Diastolic Congestive Heart Failure and Stage 3 Chronic Kidney Disease ([facility]) - 11/16/2021 Chronic Diastolic Congestive Heart Failure ([facility]) - 11/06/2020 Anemia of Chronic Renal Failure, Stage 3 (Moderate) ([facility]) - 09/01/2020 Angina of Effort - 07/24/2020 PAD (peripheral artery disease) ([facility]) both lower extremities. - 06/02/2018 Comment: Dr. Jose Luis Marie, Vascular Surgery Ckd (Chronic Kidney Disease) Stage 3, Gfr 30-59 Ml/Min ([facility]) - 08/27/2017 Osteopenia of multiple sites (Clinical osteoporosis) - 03/11/2017 Lower Leg Edema - 10/10/2015 Stented Coronary Artery - 08/16/2014 Diabetes Mellitus With Neurological Manifestations ([facility]) - 03/20/2010 Hallux Valgus, Acquired - 03/20/2010 Chronic Rhinitis - 03/29/2008 Macular Degeneration (Senile) of Retina, Unspecified - 11/24/2007 Comment: [facility] 10-21-07: L eye with MD s/p cataract extraction-stable P (more content not included)... [facility] 09-16-2023 History of Present illness Narrative SUBJECTIVE Kyle Arroyo is a 87 year old female here today for a check up on her medical problems. Chief Complaint Patient presents with: F/U 6 months HPI Kyle Arroyo is a 87 year old female. Established patient of Dr. Salas. Here today for a 6 month follow up. Follows with cardiology, pulmonology. Overall doing okay. Accompanied by daughter who helps with her care, and her son. Has been recommended to use oxygen at home in the past but does not want to. Twice a week taking nitro. Sometimes has to take x2 doses. Does not ever require a third dose. Had labs done prior to visit today. Her medications were reviewed today and her list is now up to date. Medications Current Outpatient Medications Medication Sig albuterol HFA (VENTOLIN HFA) 90 mcg/actuation inhaler Inhale 2 Puffs as instructed every 6 hours as needed. For wheezing/shortness of breath tiotropium bromide (SPIRIVA RESPIMAT) 2.5 mcg/actuation inhaler Inhale 2 Puffs as instructed once daily. mometasone-formoterol (DULERA) 200-5 mcg/actuation inhaler Inhale 1 Puff as instructed two times a day. metoprolol tartrate, short acting, (LOPRESSOR) 100 mg tablet Take 1 tablet by mouth twice daily. amLODIPine (NORVASC) 5 mg tablet Take 1 tablet by mouth once daily. lansoprazole (PREVACID) 30 mg capsule Take 1 capsule by mouth once daily. atorvastatin (LIPITOR) 40 mg tablet Take 1 tablet by mouth once daily. losartan (COZAAR) 25 mg tablet Take 1 tablet by mouth once daily. glipiZIDE (GLUCOTROL XL) 2.5 mg 24 hr tablet Take 1 tablet by mouth daily before breakfast. fluticasone (FLONASE) 50 mcg/actuation nasal spray Use 2 Sprays in each nostril once daily. Rinse mouth after use. isosorbide mononitrate ER (IMDUR) 30 mg 24 hr tablet Take 1 tablet by mouth once daily. furosemide (LASIX) 40 mg tablet Take 1 tablet by mouth once daily. May also take 1 tablet once daily as needed (increased leg swelling). nitroglycerin sublingual (NITROSTAT) 0.4 mg SL tablet Dissolve 1 tablet under the tongue as needed. DISSOLVE ON TONGUE FOR CHEST PAIN. IF NO PAIN RELIEF, CALL 911 (Patient to call when needs) sodium chloride (AYR, OCEAN) 0.65 % nasal spray Use 2 Sprays in the nose twice daily. VIT C/MCKENNA AC/LUT/COPPER/ZNOX (PRESERVISION ORAL) Take by mouth twice daily. Wercfhkmnkarf-Csqzplib-Skfhqx (CENTRUM SILVER) tab Take 1 tablet by mouth once daily. calcium carbonate/vitamin d3(CALCIUM 600 + D(3) 600 MG (1,500)-200 UNIT TAB) Take one(1) tablet twice daily. CREON 24,000-76,000 -120,000 unit delayed release capsule Take 1 capsule by mouth three times a day. blood sugar diagnostic (ONETOUCH ULTRA TEST) test strip Test blood sugar twice daily Dx. Code: E11.40 Lancets lancets Test blood sugar(s) once times daily. Dx: E11.49 Insulin: No Compression Knee Highs KNEE HIGH COMPRESSION STOCKINGS 20-30 MM HG. DX: EDEMA Current Facility-Administered Medications Medication Dose Route Frequency perflutren lipid microspheres 1.3 mL in NaCl (PF) 0.9% 10 mL injection (DEFINITY) INTRAVENOUS DIRECTED PRN sodium chloride 0.9 % (flush) 10 mL (BD POSIFLUSH) 10 mL INTRAVENOUS DIRECTED PRN ALLERGIES Allergen Reactions Aspirin Hives Iodine Hives Lyrica [Pregabalin] Swelling Leg edema, fluid retention, shortness of breath Nabumetone Intolerance muscle cramp Proair Hfa [Albuter* Other: See Comments INEFFECTIVE--NEEDS VENTOLIN HFA Tylenol [Acetaminop* Intolerance abd cramps, leg spasm ACTIVE PROBLEM LIST Pulmonary Htn ([facility]) - 05/30/2022 Chronic Hypoxemic Respiratory Failure ([facility]) - 05/30/2022 Type 2 Diabetes Mellitus With Diabetic Peripheral Angiopathy Without Gangrene, Without Long-Term Current Use of Insulin ([facility]) - 11/16/2021 Type 2 Diabetes Mellitus With Stage 3b Chronic Kidney Disease, Without Long-Term Current Use of Insulin ([facility]) - 11/16/2021 Hypertensive Heart and Kidney Disease With Chronic Diastolic Congestive Heart Failure and Stage 3 Chronic Kidney Disease ([facility]) - 11/16/2021 Chronic Diastolic Congestive Heart Failure ([facility]) - 11/06/2020 Anemia of Chronic Renal Failure, Stage 3 (Moderate) ([facility]) - 09/01/2020 Angina of Effort - 07/24/2020 PAD (peripheral artery disease) ([facility]) both lower extremities. - 06/02/2018 Comment: Dr. Jose Luis Marie, Vascular Surgery Ckd (Chronic Kidney Disease) Stage 3, Gfr 30-59 Ml/Min ([facility]) - 08/27/2017 Osteopenia of multiple sites (Clinical osteoporosis) - 03/11/2017 Lower Leg Edema - 10/10/2015 Stented Coronary Artery - 08/16/2014 Diabetes Mellitus With Neurological Manifestations ([facility]) - 03/20/2010 Hallux Valgus, Acquired - 03/20/2010 Chronic Rhinitis - 03/29/2008 Macular Degeneration (Senile) of Retina, Unspecified - 11/24/2007 Comment: [facility] 10-21-07: L eye with s/p cataract extraction-stable [facility] 2: L eye YAG capsulotomy after cataract extraction 11-23-07, 20/40 R, count fingers L Coronary Artery Disease Involving [place] Coronary Artery of [place] Heart Without Angina Pectoris - 11/13/2007 Unspecified Vitamin D Deficiency - 10/12/2007 Esophageal Reflux - 08/21/2007 Sleep apnea, intolerant to CPAP. - 08/21/2007 Essential Hypertension Stage 2 Moderate Copd By Gold Classification ([facility]) - 11/21/2005 Hyperlipidemia - 08/15/2005 Social History Tobacco Use Smoking status: Former Packs/day: 1.30 Years: 45.00 Additional pack years: 0.00 Total pack years: 58.50 Types: Cigarettes Start date: 11/03/1968 Quit date: 11/03/1999 Years since quittin.8 Smokeless tobacco: Never Vaping Use Vaping Use: Never used Substance Use Topics Alcohol use: No Drug use: No Review of Systems Respiratory: Positive for shortness of breath (per usual). Negative for apnea, cough, choking, chest tightness, wheezing and stridor. Cardiovascular: Positive for chest pain (occasionally, treatable with PRN nitro). Negative for palpitations and leg swelling. OBJECTIVE BP 110/44 Pulse 70 Wt 123 lb (55.8kg) SpO2 95% Physical Exam Vitals and nursing note reviewed. Constitutional: General: She is awake. She is not in acute distress. Appearance: Normal appearance. She is well-developed and well-groomed. She is not ill-appearing, toxic-appearing or diaphoretic. HENT: Head: Normocephalic. Right Ear: External ear normal. Left Ear: External ear normal. Nose: Nose normal. Eyes: General: Vision grossly intact. Conjunctiva/sclera: Conjunctivae normal. Pupils: Pupils are equal, round, and reactive to light. Neck: Vascular: No JVD. Trachea: Trachea normal. Cardiovascular: Rate and Rhythm: Normal rate and regular rhythm. Pulses: Normal pulses. Heart sounds: Normal heart sounds. No murmur heard. Pulmonary: Effort: Pulmonary effort is normal. No accessory muscle usage, prolonged expiration or respiratory distress. Breath sounds: Normal breath sounds. Musculoskeletal: Cervical back: Neck supple. Skin: General: Skin is warm and dry. Capillary Refill: Capillary refill takes less than 2 seconds. Neurological: General: No focal deficit present. Mental Status: She is alert and oriented to person, place, and time. Mental status is at baseline. Psychiatric: Attention and Perception: Attention and perception normal. Mood and Affect: Mood and affect normal. Speech: Speech normal. Behavior: Behavior normal. Behavior is cooperative. Thought Content: Thought content normal. Cognition and Memory: Cognition and memory normal. Judgment: Judgment normal. ASSESSMENT/PLAN: 1. Essential hypertension - ICD9: 401.9, ICD10: I10 (primary diagnosis) - Controlled - Continue current medications - Recommend home blood pressure monitoring, to bring results to next visit - Encouraged sodium restriction, DASH or Mediterranean diet - Recommend regular aerobic exercise 2. Type 2 diabetes mellitus with stage 3b chronic kidney disease, without long-term current use of insulin ([facility]) - ICD9: 250.40, 585.3, ICD10: E11.22, N18.32 - Controlled - Continue current medications - Counseled on healthy diet and regular exercise 3. Coronary artery disease involving [place] coronary artery of [place] heart without angina pectoris - ICD9: 414.01, ICD10: I25.10 Stable, nitro occasionally, following with cardiology. 4. Stage 2 moderate COPD by GOLD classification ([facility]) - ICD9: 496, ICD10: J44.9 Following with pulmonary, does not want home o2 at this time. Portions of this note have been entered by ancillary staff. I have reviewed and when necessary edited, so that they are an adequate record of my encounter with this patient Please note that parts of this document were created using voice recognition software and therefore may contain grammatical errors. Patient verbalizes understanding of instructions from today's visit and in agreement with treatment plan. Questions answered. Agrees to call the office if questions, concerns of issues with acute symptoms not improving or if they worsen. See diagnoses and orders for additional plan(s). Allergies and medications were reviewed, list was updated, and refills given if needed. Past medical, surgical, social, and family history reviewed and updated as appropriate. Encouraged proper diet & exercise as well as compliance with taking medications. Age-appropriate health preventative measures were discussed. Return in about 6 months (around 03/16/2024) for Follow up on chronic conditions and medications.. ALEXA Griffin documented in this encounter [facility] 09-15-2023 Note HNO ID: [id number] Author: Emilie Corral MD Service: ? Author Type: Physician Type: Progress Notes Filed: 09/15/2023 10:49 AM Note Text: Emilie Corral MD Interventional Cardiology [address] [place] [address] Chief Complaint Patient presents with: Recheck HISTORY OF PRESENT ILLNESS: Ms. Arroyo is a 87 year old female seen in my office for follow-up prior history of coronary artery disease and angioplasty of the circumflex with prior history of congestive heart failure doing well from the cardiac point of view she is extremely short of breath likely because of multifactorial particularly chronic obstructive airway disease Medically she had no signs or symptoms of congestive heart failure Cardiac Risk Factors age (male over 45, female over 55), hyperlipidemia, hypertension, family history of CAD PAST MEDICAL HISTORY Diagnosis Date Anemia of chronic renal failure, stage 3 (moderate) ([facility]) 09/01/2020 Arrhythmia BENIGN NEOPLASM LG BOWEL 08/21/2007 Adenomatous polyp removed from Sigmoid in 1992 Colonoscopy 06-15-07 (sister with colon ca): left sided tics with no polyps or masses CHF (congestive heart failure) (HCC) Chronic airway obstruction, not elsewhere classified Chronic bronchitis. CKD (chronic kidney disease) stage 3, GFR 30-59 ml/min ([facility]) 08/27/2017 Closed Colles' fracture of left radius 02/27/2017 Coronary artery disease Diverticulosis of colon (without mention of hemorrhage) DM Neuro Manif Type II 03/20/2010 Esophageal reflux 08/21/2007 Hallux valgus (acquired) 03/20/2010 MACULAR DEGENERATION NOS 11/24/2007 [facility] 10-21-07: L eye with s/p cataract extraction-stable [facility] 2-08: L eye YAG capsulotomy after cataract extraction 11-23-07, 20/40 R, count fingers L Oropharyngeal dysphagia 09/13/2015 Honey thickened liquids. Osteopenia Osteopenia of multiple sites (Clinical osteoporosis) 03/11/2017 Other and unspecified hyperlipidemia Other psoriasis and similar disorders Psoriasis PAD (peripheral artery disease) (HCC) both lower extremities. 06/02/2018 Dr. 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) 01/15/2016 Restless legs syndrome (RLS) 08/21/2007 Unspecified essential hypertension PAST SURGICAL HISTORY Procedure Laterality Date BX BREAST PERC VACUUM/ROTN 05/09/2010 Left CC CORONARY STENT 08/07/2014 Stents x 2 CC CORONARY STENT 2004 Stent x 1 CHOLECYSTECTOMY 1984 Cholecystectomy COLONOSCOPY 05/16/2020 COLONOSCOPY FLX DX W/COLLJ SPEC WHEN PFRMD 09/06/2002 Colonoscopy COLONOSCOPY FLX DX W/COLLJ SPEC WHEN PFRMD 06/15/2007 Colonoscopy COLONOSCOPY FLX DX W/COLLJ SPEC WHEN PFRMD 11/26/2013 Colonoscopy COLONOSCOPY FLX DX W/COLLJ SPEC WHEN PFRMD 12/01/2014 Colonoscopy COLONOSCOPY FLX DX W/COLLJ SPEC WHEN PFRMD 03/16/2015 Colonoscopy COLONOSCOPY GEN ANES 10/13/2020 EGD 05/16/2020 EGD 10/13/2020 ESOPHAGOGASTRODUODENOSCOPY TRANSORAL DIAGNOSTIC 04/15/2001 EGD ESOPHAGOGASTRODUODENOSCOPY TRANSORAL DIAGNOSTIC 10/28/2014 EGD inpt [facility] LIG/TRNSXJ FLP TUBE ABDL/VAG APPR UNI/BI 1967 Tubal ligation TONSILLECTOMY PRIMARY/SECONDARY Tonsillectomy TOTAL ABDOMINAL HYSTERECT W/WO RMVL TUBE OVARY 1977 Hysterectomy, HUE, BSO, appendectomy XCAPSL CTRC RMVL INSJ IO LENS PROSTH W/O ECP x 2 right and left Cataract Removal FAMILY HISTORY Problem Relation Age of Onset Emphysema Mother Cancer Mother Lung Emphysema Father Heart Attack Father Alzheimer's Disease Sister Alzheimer's Disease Sister GI Sister pancreatitis Coronary Artery Disease Sister other (accident) Sister Colon Cancer Sister COPD Sister Emphysema other (unknown) Brother Cancer Brother lung Cancer Brother lung Asthma Daughter other (Chronic sinusiotis) Daughter Diabetes Son other (congestive heart failure) Son Cancer Niece breast Social History Tobacco Use Smoking status: Former Packs/day: 1.30 Years: 45.00 Additional pack years: 0.00 Total pack years: 58.50 Types: Cigarettes Start date: 11/03/1968 Quit date: 11/03/1999 Years since quittin.8 Smokeless tobacco: Never Vaping Use Vaping Use: Never used Substance Use Topics Alcohol use: No Drug use: No ALLERGIES Allergen Reactions Aspirin Hives Iodine Hives Lyrica [Pregabalin] Swelling Leg edema, fluid retention, shortness of breath Nabumetone Intolerance muscle cramp Proair Hfa [Albuter* Other: See Comments INEFFECTIVE--NEEDS VENTOLIN HFA Tylenol [Acetaminop* Intolerance abd cramps, leg spasm Medications: Current Outpatient Medications Medication Sig Dispense Refill albuterol HFA (VENTOLIN HFA) 90 mcg/actuation inhaler Inhale 2 Puffs as instructed every 6 hours as needed. For wheezing/shortness of breath 18 g 5 tiotropium bromide (SPIRIVA RESPIMAT) 2.5 mcg/actuation inhaler Inhale 2 Puffs as instructed once daily. 1 Each 11 mometasone (more content not included)... [facility] 09-15-2023 History of Present illness Narrative Images from the original note were not included. Emilie Corral MD Interventional Cardiology [address] [place] [address] Chief Complaint Patient presents with: Recheck HISTORY OF PRESENT ILLNESS: Ms. Arroyo is a 87 year old female seen in my office for follow-up prior history of coronary artery disease and angioplasty of the circumflex with prior history of congestive heart failure doing well from the cardiac point of view she is extremely short of breath likely because of multifactorial particularly chronic obstructive airway disease Medically she had no signs or symptoms of congestive heart failure Cardiac Risk Factors age (male over 45, female over 55), hyperlipidemia, hypertension, family history of CAD PAST MEDICAL HISTORY Diagnosis Date Anemia of chronic renal failure, stage 3 (moderate) ([facility]) 09/01/2020 Arrhythmia BENIGN NEOPLASM LG BOWEL 08/21/2007 Adenomatous polyp removed from Sigmoid in 1992 Colonoscopy 06-15-07 (sister with colon ca): left sided tics with no polyps or masses CHF (congestive heart failure) ([facility]) Chronic airway obstruction, not elsewhere classified Chronic bronchitis. CKD (chronic kidney disease) stage 3, GFR 30-59 ml/min ([facility]) 08/27/2017 Closed Colles' fracture of left radius 02/27/2017 Coronary artery disease Diverticulosis of colon (without mention of hemorrhage) DM Neuro Manif Type II 03/20/2010 Esophageal reflux 08/21/2007 Hallux valgus (acquired) 03/20/2010 MACULAR DEGENERATION NOS 11/24/2007 [facility] 10-21-07: L eye with MD s/p cataract extraction-stable Galvin 2-08: L eye YAG capsulotomy after cataract extraction 11-23-07, 20/40 R, count fingers L Oropharyngeal dysphagia 09/13/2015 Honey thickened liquids. Osteopenia Osteopenia of multiple sites (Clinical osteoporosis) 03/11/2017 Other and unspecified hyperlipidemia Other psoriasis and similar disorders Psoriasis PAD (peripheral artery disease) (HCC) both lower extremities. 06/02/2018 Dr. 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) 01/15/2016 Restless legs syndrome (RLS) 08/21/2007 Unspecified essential hypertension PAST SURGICAL HISTORY Procedure Laterality Date BX BREAST PERC VACUUM/ROTN 05/09/2010 Left CC CORONARY STENT 08/07/2014 Stents x 2 CC CORONARY STENT 2004 Stent x 1 CHOLECYSTECTOMY 1984 Cholecystectomy COLONOSCOPY 05/16/2020 COLONOSCOPY FLX DX W/COLLJ SPEC WHEN PFRMD 09/06/2002 Colonoscopy COLONOSCOPY FLX DX W/COLLJ SPEC WHEN PFRMD 06/15/2007 Colonoscopy COLONOSCOPY FLX DX W/COLLJ SPEC WHEN PFRMD 11/26/2013 Colonoscopy COLONOSCOPY FLX DX W/COLLJ SPEC WHEN PFRMD 12/01/2014 Colonoscopy COLONOSCOPY FLX DX W/COLLJ SPEC WHEN PFRMD 03/16/2015 Colonoscopy COLONOSCOPY GEN ANES 10/13/2020 EGD 05/16/2020 EGD 10/13/2020 ESOPHAGOGASTRODUODENOSCOPY TRANSORAL DIAGNOSTIC 04/15/2001 EGD ESOPHAGOGASTRODUODENOSCOPY TRANSORAL DIAGNOSTIC 10/28/2014 EGD inpt [facility] LIG/TRNSXJ FLP TUBE ABDL/VAG APPR UNI/BI 1968 Tubal ligation TONSILLECTOMY PRIMARY/SECONDARY <AGE 12 194 Tonsillectomy TOTAL ABDOMINAL HYSTERECT W/WO RMVL TUBE OVARY 1977 Hysterectomy, HUE, BSO, appendectomy XCAPSL CTRC RMVL INSJ IO LENS PROSTH W/O ECP x 2 right and left Cataract Removal FAMILY HISTORY Problem Relation Age of Onset Emphysema Mother Cancer Mother Lung Emphysema Father Heart Attack Father Alzheimer's Disease Sister Alzheimer's Disease Sister GI Sister pancreatitis Coronary Artery Disease Sister other (accident) Sister Colon Cancer Sister COPD Sister Emphysema other (unknown) Brother Cancer Brother lung Cancer Brother lung Asthma Daughter other (Chronic sinusiotis) Daughter Diabetes Son other (congestive heart failure) Son Cancer Niece breast Social History Tobacco Use Smoking status: Former Packs/day: 1.30 Years: 45.00 Additional pack years: 0.00 Total pack years: 58.50 Types: Cigarettes Start date: 11/03/1968 Quit date: 11/03/1999 Years since quittin.8 Smokeless tobacco: Never Vaping Use Vaping Use: Never used Substance Use Topics Alcohol use: No Drug use: No ALLERGIES Allergen Reactions Aspirin Hives Iodine Hives Lyrica [Pregabalin] Swelling Leg edema, fluid retention, shortness of breath Nabumetone Intolerance muscle cramp Proair Hfa [Albuter* Other: See Comments INEFFECTIVE--NEEDS VENTOLIN HFA Tylenol [Acetaminop* Intolerance abd cramps, leg spasm Medications: Current Outpatient Medications Medication Sig Dispense Refill albuterol HFA (VENTOLIN HFA) 90 mcg/actuation inhaler Inhale 2 Puffs as instructed every 6 hours as needed. For wheezing/shortness of breath 18 g 5 tiotropium bromide (SPIRIVA RESPIMAT) 2.5 mcg/actuation inhaler Inhale 2 Puffs as instructed once daily. 1 Each 11 mometasone-formoterol (DULERA) 200-5 mcg/actuation inhaler Inhale 1 Puff as instructed two times a day. 13 g 11 metoprolol tartrate, short acting, (LOPRESSOR) 100 mg tablet Take 1 tablet by mouth twice daily. 180 tablet 3 amLODIPine (NORVASC) 5 mg tablet Take 1 tablet by mouth once daily. 30 tablet 5 lansoprazole (PREVACID) 30 mg capsule Take 1 capsule by mouth once daily. 90 capsule 3 atorvastatin (LIPITOR) 40 mg tablet Take 1 tablet by mouth once daily. 90 tablet 3 losartan (COZAAR) 25 mg tablet Take 1 tablet by mouth once daily. 90 tablet 3 glipiZIDE (GLUCOTROL XL) 2.5 mg 24 hr tablet Take 1 tablet by mouth daily before breakfast. 90 tablet 2 fluticasone (FLONASE) 50 mcg/actuation nasal spray Use 2 Sprays in each nostril once daily. Rinse mouth after use. 1 Each 0 isosorbide mononitrate ER (IMDUR) 30 mg 24 hr tablet Take 1 tablet by mouth once daily. 90 tablet 3 furosemide (LASIX) 40 mg tablet Take 1 tablet by mouth once daily. May also take 1 tablet once daily as needed (increased leg swelling). 180 tablet 3 nitroglycerin sublingual (NITROSTAT) 0.4 mg SL tablet Dissolve 1 tablet under the tongue as needed. DISSOLVE ON TONGUE FOR CHEST PAIN. IF NO PAIN RELIEF, CALL 911 (Patient to call when needs) 25 tablet 6 CREON 24,000-76,000 -120,000 unit delayed release capsule Take 1 capsule by mouth three times daily. VIT C/MCKENNA AC/LUT/COPPER/ZNOX (PRESERVISION ORAL) Take by mouth twice daily. Wxntbhaewaktd-Kzvnejwf-Vhvicx (CENTRUM SILVER) tab Take 1 tablet by mouth once daily. 0 calcium carbonate/vitamin d3(CALCIUM 600 + D(3) 600 MG (1,500)-200 UNIT TAB) Take one(1) tablet twice daily. 0 gabapentin (NEURONTIN) 300 mg capsule Take 1 capsule by mouth daily at bedtime for 180 days. 30 capsule 5 blood sugar diagnostic (ONETOUCH ULTRA TEST) test strip Test blood sugar twice daily Dx. Code: E11.40 200 Strip 3 Lancets lancets Test blood sugar(s) once times daily. Dx: E11.49 Insulin: No 100 Each 11 sodium chloride (AYR, OCEAN) 0.65 % nasal spray Use 2 Sprays in the nose twice daily. Compression Knee Highs KNEE HIGH COMPRESSION STOCKINGS 20-30 MM HG. DX: EDEMA 1 Each 1 Current Facility-Administered Medications Medication Dose Route Frequency Provider Last Rate Last Admin perflutren lipid microspheres 1.3 mL in NaCl (PF) 0.9% 10 mL injection (DEFINITY) INTRAVENOUS DIRECTED PRN Emilie Corral MD sodium chloride 0.9 % (flush) 10 mL (BD POSIFLUSH) 10 mL INTRAVENOUS DIRECTED PRN Emilie Corral MD Review of Systems Constitutional: Negative for chills, diaphoresis, fever, malaise/fatigue and weight loss. HENT: Negative for congestion, ear discharge, ear pain, hearing loss, nosebleeds, sinus pain, sore throat and tinnitus. Eyes: Negative for blurred vision, double vision, photophobia, pain, discharge and redness. Respiratory: Negative for cough, hemoptysis, sputum production, shortness of breath, wheezing and stridor. Cardiovascular: Negative for chest pain, palpitations, orthopnea, claudication, leg swelling and PND. Gastrointestinal: Negative for abdominal pain, blood in stool, constipation, diarrhea, heartburn, melena, nausea and vomiting. Genitourinary: Negative for dysuria, flank pain, frequency, hematuria and urgency. Musculoskeletal: Negative for back pain, falls, joint pain, myalgias and neck pain. Skin: Negative for itching and rash. Neurological: Negative for dizziness, tingling, tremors, sensory change, speech change, focal weakness, seizures, loss of consciousness, weakness and headaches. Endo/Heme/Allergies: Negative for environmental allergies and polydipsia. Does not bruise/bleed easily. Psychiatric/Behavioral: Negative for depression, hallucinations, memory loss, substance abuse and suicidal ideas. The patient is not nervous/anxious and does not have insomnia. Physical Examination: Vitals:BP 148/77 Pulse 77 Resp 16 Wt 123 lb (55.8kg) SpO2 92% BP w/Orthostatic Vitals Date and Time Orthostatic BP Orthostatic Pulse BP Pulse BP Position BP Site BP Cuff Size 09/15/23 1006 -- -- 148/77 77 -- -- -- Peak Flow Date and Time PF Resp 09/15/23 1006 -- 16 Last 2 Encounter Wt Readings: Date: Wt: 09/15/2023 55.8 kg (123 lb) 09/01/2023 55.8 kg (123 lb) Physical Exam Constitutional: General: She is not in acute distress. Appearance: She is not diaphoretic. HENT: Head: Normocephalic and atraumatic. Right Ear: External ear normal. Left Ear: External ear normal. Nose: Nose normal. Eyes: General: Right eye: No discharge. Left eye: No discharge. Conjunctiva/sclera: Conjunctivae normal. Pupils: Pupils are equal, round, and reactive to light. Cardiovascular: Rate and Rhythm: Normal rate and regular rhythm. Heart sounds: Normal heart sounds, S1 normal and S2 normal. No murmur heard. No friction rub. No gallop. No S3 or S4 sounds. Pulmonary: Effort: Pulmonary effort is normal. No respiratory distress. Breath sounds: Normal breath sounds. No wheezing or rales. Chest: Chest wall: No tenderness. Musculoskeletal: General: Normal range of motion. Cervical back: Normal range of motion and neck supple. Skin: General: Skin is warm and dry. Neurological: Mental Status: She is alert and oriented to person, place, and time. Psychiatric: Mood and Affect: Mood normal. Thought Content: Thought content normal. Pertinent Labs: CBC: Hemoglobin (g/dL) Date Value 09/08/2023 12.8 11/16/2021 12.9 Hematocrit (%) Date Value 09/08/2023 42.3 11/16/2021 41.0 WBC (k/uL) Date Value 09/08/2023 9.22 11/16/2021 15.42 Platelet Count (k/uL) Date Value 09/08/2023 337 11/16/2021 386 BMP: Glucose (mg/dL) Date Value 09/08/2023 94 11/16/2021 191 Potassium (mmol/L) Date Value 09/08/2023 4.8 11/16/2021 4.2 Sodium (mmol/L) Date Value 09/08/2023 138 11/16/2021 137 Chloride (mmol/L) Date Value 09/08/2023 100 11/16/2021 100 CO2 (mmol/L) Date Value 09/08/2023 25 11/16/2021 25 Creatinine (mg/dL) Date Value 09/08/2023 1.11 11/16/2021 1.22 BUN (mg/dL) Date Value 09/08/2023 21 11/16/2021 14 Anion Gap (mmol/L) Date Value 09/08/2023 13 11/16/2021 12 Calcium (mg/dL) Date Value 11/16/2021 8.9 Calcium, Total (mg/dL) Date Value 09/08/2023 10.0 INR: Lipid Profile: Cholesterol, Total Date Value Ref Range Status 09/08/2023 156 <200 mg/dL Final Comment: <200 mg/dL, Desirable 200-239 mg/dL, Borderline high >239 mg/dL, High HDL Cholesterol Date Value Ref Range Status 09/08/2023 45 >39 mg/dL Final Comment: 40-59 mg/dL, Acceptable >59 mg/dL, High: Negative risk factor for coronary heart disease <40 mg/dL, Low: Positive risk factor for coronary heart disease LDL Cholesterol Date Value Ref Range Status 09/08/2023 84 <100 mg/dL Final Comment: <100 mg/dL, Optimal 100-129 mg/dL, Near optimal/above optimal 130-159 mg/dL, Borderline high 160-189 mg/dL, High >189 mg/dL, Very high Secondary prevention optimal LDL Cholesterol levels are recommended to be < 70 mg/dL Triglyceride Date Value Ref Range Status 09/08/2023 135 <150 mg/dL Final Comment: <150 mg/dL, Normal 150-199 mg/dL, Borderline high 200-499 mg/dL, High >499 mg/dL, Very high Hemoglobin A1C: No results found for: HGBA1C TSH: No results found for: TSHREFL Prior Cardiac Testing EKG Assessment and Plan: 87 years old female patient prior history of coronary artery disease and circumflex stent ASSESSMENT/PLAN: 1. Chronic diastolic congestive heart failure (HCC) - ICD9: 428.32, 428.0, ICD10: I50.32 (primary diagnosis) - HFpEF 50+ - Continue current medications - ECG COMPLETE 2. Pure hypercholesterolemia - ICD9: 272.0, ICD10: E78.00 ON STATIN 3. Essential hypertension - ICD9: 401.9, ICD10: I10 - Controlled - Continue current medications - Recommend home blood pressure monitoring, to bring results to next visit - Encouraged sodium restriction, DASH or Mediterranean diet - Recommend regular aerobic exercise 4. Coronary artery disease involving [place] coronary artery of [place] heart without angina pectoris - ICD9: 414.01, ICD10: I25.10 Status post angioplasty with drug-eluting stent to the circumflex Used occasionally nitroglycerin 5. Stented coronary artery - ICD9: V45.82, ICD10: Z95.5 Circumflex stent occasional use of nitroglycerin continue medical therapy 6. Pulmonary HTN (HCC) - ICD9: 416.8, ICD10: I27.20 Secondary to COPD Emilie Corral MD Follow up plannin MONTHS Electronically signed by Emilie Corral MD on September 15, 2023, 10:46 AM The above note was partially created using a dictation recognition software. A reasonable attempt has been made to correct any errors. documented in this encounter [facility] 09-10-2023 Miscellaneous Notes Patient called in and stated that she needs a refill of her albuterol HFA (VENTOLIN HFA) 90 mcg/actuation inhaler [facility] please let me know when completed so I can call the patient back. Thank you Chris Worrell documented in this encounter [facility] 09-08-2023 Miscellaneous Notes The following approved medication requests have been transmitted electronically. Requested Prescriptions Signed Prescriptions Disp Refills tiotropium bromide (SPIRIVA RESPIMAT) 2.5 mcg/actuation inhaler 1 Each 11 Sig: Inhale 2 Puffs as instructed once daily. Authorizing Provider: ABRIL SALAS mometasone-formoterol (DULERA) 200-5 mcg/actuation inhaler 13 g 11 Sig: Inhale 1 Puff as instructed two times a day. Authorizing Provider: ABRIL SALAS MD documented in this encounter [facility] 09-01-2023 Note HNO ID: [id number] Author: Jasmin Avendano MD Service: ? Author Type: Physician Type: Progress Notes Filed: 09/01/2023 9:55 AM Note Text: . [facility] [place] Note Patient name: Kyle Arroyo PCP: Abril Salas MD CC: COPD follow-up HPI: Kyle Arroyo 87 year old female former approximate 60 pack year smoker having quit in 1999 with PMH significant for CKD, CHF, CAD s/p stent, DM2, GERD, PAD, HTN, EKATERINA on CPAP, COPD/emphysma, PAH presenting for follow-up visit. Current therapy with Dulera and Spiriva and as needed albuterol. She uses her albuterol every morning, which results in occasional phlegm production. Denies significant SOB, wheezing, chest pain. Ne edema or fluid retention. Using her Lasix every day. No recent URI or hospitalizations. No nocturnal awakenings. DATA: COPD Assessment Test I never cough 0 1 2 3 4 5 I cough all the time; Score 5 I have no phlegm 0 1 2 3 4 5 My chest is completely full of phlegm; Score 5 My chest does not feel tight at all 0 1 2 3 4 5 My chest chest feels very tight; Score 4 When I walk up a hill or one flight of stairs I am not breathless 0 1 2 3 4 5 When I walk up a hill or one flight or stairs I am very breathless; Score 5 I am not limited doing any activities at home 0 1 2 3 4 5 I am very limited doing activities at home; Score 4 I am confident leaving my home despite my lung condition 0 1 2 3 4 5 I am not at all confident leaving my home because of my lung condition; Score 4 I sleep soundly 0 1 2 3 4 5 don't sleep soundly because of my lungs; Score 4 I have lots of energy 0 1 2 3 4 5 I have no energy at all; Score 5 Total Score: 36 Survey likely filled out by daughter. When speaking to Kyle directly she only states that she coughs in the morning with occasional phlegm production after she uses her albuterol Imaging / Diagnostic Studies: Last chest imaging [facility] 02/2023 with perihilar infiltrates PAST MEDICAL HISTORY Diagnosis Date Anemia of chronic renal failure, stage 3 (moderate) ([facility]) 09/01/2020 Arrhythmia BENIGN NEOPLASM LG BOWEL 08/21/2007 Adenomatous polyp removed from Sigmoid in 1992 Colonoscopy 06-15-07 (sister with colon ca): left sided tics with no polyps or masses CHF (congestive heart failure) ([facility]) Chronic airway obstruction, not elsewhere classified Chronic bronchitis. CKD (chronic kidney disease) stage 3, GFR 30-59 ml/min ([facility]) 08/27/2017 Closed Colles' fracture of left radius 02/27/2017 Coronary artery disease Diverticulosis of colon (without mention of hemorrhage) DM Neuro Manif Type II 03/20/2010 Esophageal reflux 08/21/2007 Hallux valgus (acquired) 03/20/2010 MACULAR DEGENERATION NOS 11/24/2007 [facility] 10-21-07: L eye with MD s/p cataract extraction-stable Galvin 2-08: L eye YAG capsulotomy after cataract extraction 11-23-07, 20/40 R, count fingers L Oropharyngeal dysphagia 09/13/2015 Honey thickened liquids. Osteopenia Osteopenia of multiple sites (Clinical osteoporosis) 03/11/2017 Other and unspecified hyperlipidemia Other psoriasis and similar disorders Psoriasis PAD (peripheral artery disease) ([facility]) both lower extremities. 06/02/2018 Dr. Jose Luis Marie, Vascular Surgery Peripheral sensory neuropathy due to type 2 diabetes mellitus ([facility]) 01/15/2016 Restless legs syndrome (RLS) 08/21/2007 Unspecified essential hypertension ALLERGIES Allergen Reactions Aspirin Hives Iodine Hives Lyrica [Pregabalin] Swelling Leg edema, fluid retention, shortness of breath Nabumetone Intolerance muscle cramp Proair Hfa [Albuter* Other: See Comments INEFFECTIVE--NEEDS VENTOLIN HFA Tylenol [Acetaminop* Intolerance abd cramps, leg spasm mometasone-formoterol (DULERA) 200-5 mcg/actuation inhalerInhale 1 Puff as instructed two times a day.Disp: 13 gRfl: 11 tiotropium bromide (SPIRIVA RESPIMAT) 2.5 mcg/actuation inhalerInhale 2 Puffs as instructed once daily.Disp: 1 EachRfl: 11 metoprolol tartrate, short acting, (LOPRESSOR) 100 mg tabletTake 1 tablet by mouth twice daily.Disp: 180 tabletRfl: 3 amLODIPine (NORVASC) 5 mg tabletTake 1 tablet by mouth once daily.Disp: 30 tabletRfl: 5 gabapentin (NEURONTIN) 300 mg capsuleTake 1 capsule by mouth daily at bedtime for 180 days.Disp: 30 capsuleRfl: 5 blood sugar diagnostic (ONETOUCH ULTRA TEST) test stripTest blood sugar twice daily Dx. Code: E11.40Disp: 200 StripRfl: 3 lansoprazole (PREVACID) 30 mg capsuleTake 1 capsule by mouth once daily.Disp: 90 capsuleRfl: 3 atorvastatin (LIPITOR) 40 mg tabletTake 1 tablet by mouth once daily.Disp: 90 tabletRfl: 3 albuterol HFA (VENTOLIN HFA) 90 mcg/actuation inhalerInhale 2 Puffs as instructed every 6 hours as needed. For wheezing/shortness of breathDisp: 18 gRfl: 5 losartan (COZAAR) 25 mg tabletTake 1 tablet by mouth once daily.Disp: 90 tabletRfl: 3 glipiZIDE (GLUCOTROL XL) 2.5 mg 24 hr tabletTake 1 tablet by mouth daily before breakfast.Disp (more content not included)... [facility] 09-01-2023 History of Present illness Narrative Images from the original note were not included. . Res[facility] [place] Note Patient name: Kyle Arroyo PCP: Abirl Salas MD CC: COPD follow-up HPI: Kyle Arroyo 87 year old female former approximate 60 pack year smoker having quit in 1999 with PMH significant for CKD, CHF, CAD s/p stent, DM2, GERD, PAD, HTN, EKATERINA on CPAP, COPD/emphysma, PAH presenting for follow-up visit. Current therapy with Dulera and Spiriva and as needed albuterol. She uses her albuterol every morning, which results in occasional phlegm production. Denies significant SOB, wheezing, chest pain. Ne edema or fluid retention. Using her Lasix every day. No recent URI or hospitalizations. No nocturnal awakenings. DATA: COPD Assessment Test I never cough 0 1 2 3 4 5 I cough all the time; Score 5 I have no phlegm 0 1 2 3 4 5 My chest is completely full of phlegm; Score 5 My chest does not feel tight at all 0 1 2 3 4 5 My chest chest feels very tight; Score 4 When I walk up a hill or one flight of stairs I am not breathless 0 1 2 3 4 5 When I walk up a hill or one flight or stairs I am very breathless; Score 5 I am not limited doing any activities at home 0 1 2 3 4 5 I am very limited doing activities at home; Score 4 I am confident leaving my home despite my lung condition 0 1 2 3 4 5 I am not at all confident leaving my home because of my lung condition; Score 4 I sleep soundly 0 1 2 3 4 5 don't sleep soundly because of my lungs; Score 4 I have lots of energy 0 1 2 3 4 5 I have no energy at all; Score 5 Total Score: 36 Survey likely filled out by daughter. When speaking to Kyle directly she only states that she coughs in the morning with occasional phlegm production after she uses her albuterol Imaging / Diagnostic Studies: Last chest imaging [facility] 02/2023 with perihilar infiltrates PAST MEDICAL HISTORY Diagnosis Date Anemia of chronic renal failure, stage 3 (moderate) ([facility]) 09/01/2020 Arrhythmia BENIGN NEOPLASM LG BOWEL 08/21/2007 Adenomatous polyp removed from Sigmoid in 1992 Colonoscopy 06-15-07 (sister with colon ca): left sided tics with no polyps or masses CHF (congestive heart failure) ([facility]) Chronic airway obstruction, not elsewhere classified Chronic bronchitis. CKD (chronic kidney disease) stage 3, GFR 30-59 ml/min ([facility]) 08/27/2017 Closed Colles' fracture of left radius 02/27/2017 Coronary artery disease Diverticulosis of colon (without mention of hemorrhage) DM Neuro Manif Type II 03/20/2010 Esophageal reflux 08/21/2007 Hallux valgus (acquired) 03/20/2010 MACULAR DEGENERATION NOS 11/24/2007 [facility] 10-21-07: L eye with MD s/p cataract extraction-[facility] 12-11: L eye YAG capsulotomy after cataract extraction 11-23-07, 20/40 R, count fingers L Oropharyngeal dysphagia 09/13/2015 Honey thickened liquids. Osteopenia Osteopenia of multiple sites (Clinical osteoporosis) 03/11/2017 Other and unspecified hyperlipidemia Other psoriasis and similar disorders Psoriasis PAD (peripheral artery disease) ([facility]) both lower extremities. 06/02/2018 Dr. Jose Luis Marie, Vascular Surgery Peripheral sensory neuropathy due to type 2 diabetes mellitus ([facility]) 01/15/2016 Restless legs syndrome (RLS) 08/21/2007 Unspecified essential hypertension ALLERGIES Allergen Reactions Aspirin Hives Iodine Hives Lyrica [Pregabalin] Swelling Leg edema, fluid retention, shortness of breath Nabumetone Intolerance muscle cramp Proair Hfa [Albuter* Other: See Comments INEFFECTIVE--NEEDS VENTOLIN HFA Tylenol [Acetaminop* Intolerance abd cramps, leg spasm mometasone-formoterol (DULERA) 200-5 mcg/actuation inhaler^Inhale 1 Puff as instructed two times a day.^Disp: 13 g^Rfl: 11 tiotropium bromide (SPIRIVA RESPIMAT) 2.5 mcg/actuation inhaler^Inhale 2 Puffs as instructed once daily.^Disp: 1 Each^Rfl: 11 metoprolol tartrate, short acting, (LOPRESSOR) 100 mg tablet^Take 1 tablet by mouth twice daily.^Disp: 180 tablet^Rfl: 3 amLODIPine (NORVASC) 5 mg tablet^Take 1 tablet by mouth once daily.^Disp: 30 tablet^Rfl: 5 gabapentin (NEURONTIN) 300 mg capsule^Take 1 capsule by mouth daily at bedtime for 180 days.^Disp: 30 capsule^Rfl: 5 blood sugar diagnostic (Mirimus ULTRA TEST) test strip^Test blood sugar twice daily Dx. Code: E11.40^Disp: 200 Strip^Rfl: 3 lansoprazole (PREVACID) 30 mg capsule^Take 1 capsule by mouth once daily.^Disp: 90 capsule^Rfl: 3 atorvastatin (LIPITOR) 40 mg tablet^Take 1 tablet by mouth once daily.^Disp: 90 tablet^Rfl: 3 albuterol HFA (VENTOLIN HFA) 90 mcg/actuation inhaler^Inhale 2 Puffs as instructed every 6 hours as needed. For wheezing/shortness of breath^Disp: 18 g^Rfl: 5 losartan (COZAAR) 25 mg tablet^Take 1 tablet by mouth once daily.^Disp: 90 tablet^Rfl: 3 glipiZIDE (GLUCOTROL XL) 2.5 mg 24 hr tablet^Take 1 tablet by mouth daily before breakfast.^Disp: 90 tablet^Rfl: 2 fluticasone (FLONASE) 50 mcg/actuation nasal spray^Use 2 Sprays in each nostril once daily. Rinse mouth after use.^Disp: 1 Each^Rfl: 0 isosorbide mononitrate ER (IMDUR) 30 mg 24 hr tablet^Take 1 tablet by mouth once daily.^Disp: 90 tablet^Rfl: 3 furosemide (LASIX) 40 mg tablet^Take 1 tablet by mouth once daily. May also take 1 tablet once daily as needed (increased leg swelling).^Disp: 180 tablet^Rfl: 3 Lancets lancets^Test blood sugar(s) once times daily. Dx: E11.49 Insulin: No^Disp: 100 Each^Rfl: 11 nitroglycerin sublingual (NITROSTAT) 0.4 mg SL tablet^Dissolve 1 tablet under the tongue as needed. DISSOLVE ON TONGUE FOR CHEST PAIN. IF NO PAIN RELIEF, CALL 911 (Patient to call when needs)^Disp: 25 tablet^Rfl: 6 CREON 24,000-76,000 -120,000 unit delayed release capsule^Take 1 capsule by mouth three times daily.^Disp: ^Rfl: sodium chloride (AYR, OCEAN) 0.65 % nasal spray^Use 2 Sprays in the nose twice daily.^Disp: ^Rfl: Compression Knee Highs^KNEE HIGH COMPRESSION STOCKINGS 20-30 MM HG. DX: EDEMA^Disp: 1 Each^Rfl: 1 VIT C/MCKENNA AC/LUT/COPPER/ZNOX (PRESERVISION ORAL)^Take by mouth twice daily. ^Disp: ^Rfl: Qsvtwuojidocp-Jqxokhhp-Fqpdxt (CENTRUM SILVER) tab^Take 1 tablet by mouth once daily.^Disp: ^Rfl: 0 calcium carbonate/vitamin d3(CALCIUM 600 + D(3) 600 MG (1,500)-200 UNIT TAB)^Take one(1) tablet twice daily.^Disp: ^Rfl: 0 Social History Tobacco Use Smoking status: Former Packs/day: 1.30 Years: 45.00 Additional pack years: 0.00 Total pack years: 58.50 Types: Cigarettes Start date: 11/03/1968 Quit date: 11/03/1999 Years since quittin.8 Smokeless tobacco: Never Vaping Use Vaping Use: Never used Substance Use Topics Alcohol use: No Drug use: No FAMILY HISTORY Problem Relation Age of Onset Emphysema Mother Cancer Mother Lung Emphysema Father Heart Attack Father Alzheimer's Disease Sister Alzheimer's Disease Sister GI Sister pancreatitis Coronary Artery Disease Sister other (accident) Sister Colon Cancer Sister COPD Sister Emphysema other (unknown) Brother Cancer Brother lung Cancer Brother lung Asthma Daughter other (Chronic sinusiotis) Daughter Diabetes Son other (congestive heart failure) Son Cancer Niece breast PAST SURGICAL HISTORY Procedure Laterality Date BX BREAST PERC VACUUM/ROTN 05/09/2010 Left CC CORONARY STENT 08/07/2014 Stents x 2 CC CORONARY STENT 2004 Stent x 1 CHOLECYSTECTOMY 1984 Cholecystectomy COLONOSCOPY 05/16/2020 COLONOSCOPY FLX DX W/COLLJ SPEC WHEN PFRMD 09/06/2002 Colonoscopy COLONOSCOPY FLX DX W/COLLJ SPEC WHEN PFRMD 06/15/2007 Colonoscopy COLONOSCOPY FLX DX W/COLLJ SPEC WHEN PFRMD 11/26/2013 Colonoscopy COLONOSCOPY FLX DX W/COLLJ SPEC WHEN PFRMD 12/01/2014 Colonoscopy COLONOSCOPY FLX DX W/COLLJ SPEC WHEN PFRMD 03/16/2015 Colonoscopy COLONOSCOPY GEN ANES 10/13/2020 EGD 05/16/2020 EGD 10/13/2020 ESOPHAGOGASTRODUODENOSCOPY TRANSORAL DIAGNOSTIC 04/15/2001 EGD ESOPHAGOGASTRODUODENOSCOPY TRANSORAL DIAGNOSTIC 10/28/2014 EGD inpt [facility] LIG/TRNSXJ FLP TUBE ABDL/VAG APPR UNI/BI 1968 Tubal ligation TONSILLECTOMY PRIMARY/SECONDARY <AGE 12 194 Tonsillectomy TOTAL ABDOMINAL HYSTERECT W/WO RMVL TUBE OVARY 1977 Hysterectomy, HUE, BSO, appendectomy XCAPSL CTRC RMVL INSJ IO LENS PROSTH W/O ECP x 2 right and left Cataract Removal PMH, Social history, family history and surgical history reviewed and updated in EMR REVIEW OF SYSTEMS: CONSTITUTIONAL: No fevers, chills, nightsweats, unintended weight loss HEENT: Denies nasal congestion/sinus symptoms, allergy problems. CARDIOVASCULAR: No chest pain, dyspnea, palpitations, orthopnea, PND, edema, fluid retention PULM: See HPI NEURO: No new balance problems, peripheral weakness/paresthesias or numbness of concern. No falls INTEGUMENTARY: No new skin changes or bruising PHYSICAL EXAMINATION: BP 112/66 Pulse 62 Resp 16 Wt 123 lb (55.8kg) SpO2 93% General Appearance: Elderly female, NAD. Skin: Skin color, texture, turgor normal, no suspicious rashes or lesions. Head: Normocephalic, no masses, lesions, tenderness or abnormalities. Eyes: . Oropharynx: Dentures, no oral lesions or thrush. Neck: No JVD, no masses, no adenopathy Chest wall: Mild kyphosis. Lungs: Hyperresonant to percussion, not labored, bilateral Tory wheezes. Heart: Regular rate and rhythm, no murmurs. Extremities: No edema or clubbing. Assessment/Plan: 1. Moderate COPD -Continue triple inhaler therapy. Refilled prescriptions -Flu vaccine today 2. Former cigarette smoker -Former 60 pack year smoker with sequelae of COPD -Does not meet criteria for lung cancer screening due to age and duration of smoking cessation 3. 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 Moderately severe -Continue diuretic Jasmin Avendano MD Respiratory [place] documented in this encounter [facility] 07-22-2023 Miscellaneous Notes Patient has been identified by name and date of : Yes Patient phones for refill(s): Requested Prescriptions Pending Prescriptions Disp Refills amLODIPine (NORVASC) 5 mg tablet 30 tablet 5 Sig: Take 1 tablet by mouth once daily. Date of last office visit in primary care: 03/14/2023 Follow-up: 09/16/2023 Last 2 Encounter Wt Readings: Date: Wt: 03/14/2023 56.7 kg (125 lb) 02/28/2023 55.8 kg (123 lb) Previous labs/tests for medication: Blood Pressure: BUN (mg/dL) Date Value 03/14/2023 31 11/16/2021 14 Sodium (mmol/L) Date Value 03/14/2023 132 11/16/2021 137 Last 1 Encounter BP Readings: Date: BP: 03/14/2023 124/68 Please advise. Thank you. Niurka Pope LPN Patient has been identified by name and date of : Yes Last office visit in this department: 02/14/2020 RX INSTRUCTIONS: Patient aware RX will be sent to pharmacy. No need to notify patient. Patient phones requesting refills as follows: Requested Prescriptions Pending Prescriptions Disp Refills amLODIPine (NORVASC) 5 mg tablet 30 tablet 5 Sig: Take 1 tablet by mouth once daily. Please review and advise. Heather Reese documented in this encounter [facility] 05-07-2023 Miscellaneous Notes Patient phones requesting refills as follows: Requested Prescriptions Pending Prescriptions Disp Refills blood sugar diagnostic (ONETOUCH ULTRA TEST) test strip 200 Strip 3 Sig: Test blood sugar twice daily Dx. Code: E11.40 TOM: 03/14/23 NOV: 09/16/23 Last Refill: 04/17/22 #200 3 refills Eliza Jack LPN documented in this encounter [facility] documented in this encounter [facility]05-12-2023 NoteHNO ID: [id number] Author: Abril Salas MD Service: ? Author Type: Physician Type: Progress Notes Filed: 04/14/2023 2:25 AM Note Text: This note was created using NoteWriter. Subjective Kyle Arroyo is a 87 year old female. Patient presents with: Recheck: 6 months SUBJECTIVE: Kyle Arroyo is a 87 year old year old lady here today for 6 month follow up appointment for review of medical conditions. Blood sugar log showed high after eating biscuits--up to 400s. Does not happen often. Sugars go right back to goal. Most sugars 110 to 120s. Occasional over 180s. BPs 110 to 130s mostly; occasionally 140s and 150s. Reviewed that declined using O2 at night and with activity though was recommended. Does have MERCEDES. Pulse ox runs 93 to 95 at rest and with activity. Did not want to wear O2 since thought was a hassle, especially at night when had to go to bathroom. Nocturia 3 to 4 times a night. Depression Screening 09/06/2019 01/11/2021 03/24/2022 03/14/2023 PHQ-2 Score 1 2 2 2 Depression screening tool completed and reviewed. Based on score and interview, patient is not at risk for depression. Screening tool discussed with patient, and I recommended no further intervention at this time. (Noted issues with son) PAST MEDICAL HISTORY Diagnosis Date Anemia of chronic renal failure, stage 3 (moderate) (HCC) 09/01/2020 Arrhythmia BENIGN NEOPLASM LG BOWEL 08/21/2007 Adenomatous polyp removed from Sigmoid in 1992 Colonoscopy 06-15-07 (sister with colon ca): left sided tics with no polyps or masses CHF (congestive heart failure) (HCC) Chronic airway obstruction, not elsewhere classified Chronic bronchitis. CKD (chronic kidney disease) stage 3, GFR 30-59 ml/min (HCC) 08/27/2017 Closed Colles' fracture of left radius 02/27/2017 Coronary artery disease Diverticulosis of colon (without mention of hemorrhage) DM Neuro Manif Type II 03/20/2010 Esophageal reflux 08/21/2007 Hallux valgus (acquired) 03/20/2010 MACULAR DEGENERATION NOS 11/24/2007 [facility] 10-21-07: L eye with s/p cataract extraction-[facility] -08: L eye YAG capsulotomy after cataract extraction 11-23-07, 20/40 R, count fingers L Oropharyngeal dysphagia 09/13/2015 Honey thickened liquids. Osteopenia Osteopenia of multiple sites (Clinical osteoporosis) 03/11/2017 Other and unspecified hyperlipidemia Other psoriasis and similar disorders Psoriasis PAD (peripheral artery disease) ([facility]) both lower extremities. 06/02/2018 Dr. Jose Luis Marie, Vascular Surgery Peripheral sensory neuropathy due to type 2 diabetes mellitus ([facility]) 01/15/2016 Restless legs syndrome (RLS) 08/21/2007 Unspecified essential hypertension Current Outpatient Medications Medication Sig atorvastatin (LIPITOR) 40 mg tablet Take 1 tablet by mouth once daily. albuterol HFA (VENTOLIN HFA) 90 mcg/actuation inhaler Inhale 2 Puffs as instructed every 6 hours as needed. For wheezing/shortness of breath losartan (COZAAR) 25 mg tablet Take 1 tablet by mouth once daily. lansoprazole (PREVACID) 30 mg capsule Take 1 capsule by mouth once daily. amLODIPine (NORVASC) 5 mg tablet Take 1 tablet by mouth once daily. glipiZIDE (GLUCOTROL XL) 2.5 mg 24 hr tablet Take 1 tablet by mouth daily before breakfast. fluticasone (FLONASE) 50 mcg/actuation nasal spray Use 2 Sprays in each nostril once daily. Rinse mouth after use. tiotropium bromide (SPIRIVA RESPIMAT) 2.5 mcg/actuation inhaler Inhale 2 Puffs as instructed once daily. isosorbide mononitrate ER (IMDUR) 30 mg 24 hr tablet Take 1 tablet by mouth once daily. furosemide (LASIX) 40 mg tablet Take 1 tablet by mouth once daily. May also take 1 tablet once daily as needed (increased leg swelling). metoprolol tartrate, short acting, (LOPRESSOR) 100 mg tablet Take 1 tablet by mouth twice daily. Lancets lancets Test blood sugar(s) once times daily. Dx: E11.49 Insulin: No nitroglycerin sublingual (NITROSTAT) 0.4 mg SL tablet Dissolve 1 tablet under the tongue as needed. DISSOLVE ON TONGUE FOR CHEST PAIN. IF NO PAIN RELIEF, CALL 911 (Patient to call when needs) mometasone-formoterol (DULERA) 200-5 mcg/actuation inhaler Inhale 1 Puff as instructed twice daily. blood sugar diagnostic (Advanced Ophthalmic PharmaTOUCH ULTRA TEST) test strip Test blood sugar twice daily Dx. Code: E11.40 CREON 24,000-76,000 -120,000 unit delayed release capsule Take 1 capsule by mouth three times daily. sodium chloride (AYR, OCEAN) 0.65 % nasal spray Use 2 Sprays in the nose twice daily. Compression Knee Highs KNEE HIGH COMPRESSION STOCKINGS 20-30 MM HG. DX: EDEMA VIT C/MCKENNA AC/LUT/COPPER/ZNOX (PRESERVISION ORAL) Take by mouth twice daily. Rcaclgkwpujfa-Ljtrohbt-Plmegm (CENTRUM SILVER) tab Take 1 tablet by mouth once daily. calcium carbonate/vitamin d3(CALCIUM 600 + D(3) 600 MG (1,500)-200 UNIT TAB) Take one(1) tablet twice daily. Current Facility-Administered Medications Medication Dose Route Frequency perf (more content not included)...[facility]05-12-2023 Instructions* Patient Instructions* Abril Salas MD - 03/14/2023 9:32 AM EDT Reconsider wearing oxygen at least at night time because of issues with pulmonary hypertension. Would recheck overnight pulse ox to verify still qualify and then reorder oxygen. Okay to take off whengoing to the bathroom if oxygen level does not drop with activity. [facility] History of Present illness Narrative* Abril Salas MD - 03/14/2023 8:55 AM EDT This note was created using NoteWriter. Subjective Kyle Arroyo is a 87 year old female. Patient presents with: Recheck: 6 months SUBJECTIVE: Kyle Arroyo is a 87 year old year old lady here today for 6 month follow up appointment for reviewof medical conditions. Blood sugar log showed high after eating biscuits--up to 400s. Does not happen often. Sugars go right back to goal. Most sugars 110 to 120s. Occasional over 180s. BPs 110 to 130s mostly; occasionally 140s and 150s. Reviewed that declined using O2 at night and with activity though was recommended. Does have MERCEDES. Pulse ox runs 93 to 95 at rest and with activity. Did not want to wear O2 since thought was a hassle, especially at night when had to go to bathroom. Nocturia 3 to 4 times a night. Depression Screening 09/06/2019 01/11/2021 03/24/2022 03/14/2023 PHQ-2 Score 1 2 2 2 Depression screening tool completed and reviewed. Based on score and interview, patient is not at risk for depression. Screening tool discussed with patient, and I recommended no further interventionat this time. (Noted issues with son) PAST MEDICAL HISTORY Diagnosis Date Anemia of chronic renal failure, stage 3 (moderate) ([facility]) 09/01/2020 Arrhythmia BENIGN NEOPLASM LG BOWEL 08/21/2007 Adenomatous polyp removed from Sigmoid in 1992 Colonoscopy 06-15-07 (sister with colon ca): left sided tics with no polyps or masses CHF (congestive heart failure) ([facility]) Chronic airway obstruction, not elsewhere classified Chronic bronchitis. CKD (chronic kidney disease) stage 3, GFR 30-59 ml/min ([facility]) 08/27/2017 Closed Colles' fracture of left radius 02/27/2017 Coronary artery disease Diverticulosis of colon (without mention of hemorrhage) DM Neuro Manif Type II 03/20/2010 Esophageal reflux 08/21/2007 Hallux valgus (acquired) 03/20/2010 MACULAR DEGENERATION NOS 11/24/2007 [facility] 10-21-07: L eye with MD s/p cataract extraction-[facility] -08: L eye YAG capsulotomy after cataract extraction 11-23-07, 20/40 R, count fingers L Oropharyngeal dysphagia 09/13/2015 Honey thickened liquids. Osteopenia Osteopenia of multiple sites (Clinical osteoporosis) 03/11/2017 Other and unspecified hyperlipidemia Other psoriasis and similar disorders Psoriasis PAD (peripheral artery disease) ([facility]) both lower extremities. 06/02/2018 Dr. 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) 01/15/2016 Restless legs syndrome (RLS) 08/21/2007 Unspecified essential hypertension Current Outpatient Medications Medication Sig atorvastatin (LIPITOR) 40 mg tablet Take 1 tablet by mouth once daily. albuterol HFA (VENTOLIN HFA) 90 mcg/actuation inhaler Inhale 2 Puffs as instructed every 6 hours asneeded. For wheezing/shortness of breath losartan (COZAAR) 25 mg tablet Take 1 tablet by mouth once daily. lansoprazole (PREVACID) 30 mg capsule Take 1 capsule by mouth once daily. amLODIPine (NORVASC) 5 mg tablet Take 1 tablet by mouth once daily. glipiZIDE (GLUCOTROL XL) 2.5 mg 24 hr tablet Take 1 tablet by mouth daily before breakfast. fluticasone (FLONASE) 50 mcg/actuation nasal spray Use 2 Sprays in each nostril once daily. Rinse mouth after use. tiotropium bromide (SPIRIVA RESPIMAT) 2.5 mcg/actuation inhaler Inhale 2 Puffs as instructed once daily. isosorbide mononitrate ER (IMDUR) 30 mg 24 hr tablet Take 1 tablet by mouth once daily. furosemide (LASIX) 40 mg tablet Take 1 tablet by mouth once daily. May also take 1 tablet once daily as needed (increased leg swelling). metoprolol tartrate, short acting, (LOPRESSOR) 100 mg tablet Take 1 tablet by mouth twice daily. Lancets lancets Test blood sugar(s) once times daily. Dx: E11.49 Insulin: No nitroglycerin sublingual (NITROSTAT) 0.4 mg SL tablet Dissolve 1 tablet under the tongue as needed.DISSOLVE ON TONGUE FOR CHEST PAIN. IF NO PAIN RELIEF, CALL 911 (Patient to call when needs) mometasone-formoterol (DULERA) 200-5 mcg/actuation inhaler Inhale 1 Puff as instructed twice daily. blood sugar diagnostic (Advanced Ophthalmic PharmaTOUCH ULTRA TEST) test strip Test blood sugar twice daily Dx. Code: E11.40 CREON 24,000-76,000 -120,000 unit delayed release capsule Take 1 capsule by mouth three times daily. sodium chloride (AYR, OCEAN) 0.65 % nasal spray Use 2 Sprays in the nose twice daily. Compression Knee Highs KNEE HIGH COMPRESSION STOCKINGS 20-30 MM HG. DX: EDEMA VIT C/MCKENNA AC/LUT/COPPER/ZNOX (PRESERVISION ORAL) Take by mouth twice daily. Dbfotkpfzygjd-Lyuekncv-Mswesl (CENTRUM SILVER) tab Take 1 tablet by mouth once daily. calcium carbonate/vitamin d3(CALCIUM 600 + D(3) 600 MG (1,500)-200 UNIT TAB) Take one(1) tablet twice daily. Current Facility-Administered Medications Medication Dose Route Frequency perflutren lipid microspheres 1.3 mL in NaCl (PF) 0.9% 10 mL injection (DEFINITY) INTRAVENOUS DIRECTED PRN sodium chloride 0.9 % (flush) 10 mL (BD POSIFLUSH) 10 mL INTRAVENOUS DIRECTED PRN Review of Systems Objective BP 124/68 Pulse 64 Resp 14 Wt 56.7 kg (125 lb) BMI 25.25 kg/m Physical Exam Constitutional: Appearance: Normal appearance. HENT: Head: Normocephalic. Eyes: Conjunctiva/sclera: Conjunctivae normal. Cardiovascular: Rate and Rhythm: Normal rate and regular rhythm. Heart sounds: Normal heart sounds. Pulmonary: Effort: Pulmonary effort is normal. Breath sounds: Normal breath sounds. Skin: General: Skin is warm and dry. Neurological: General: No focal deficit present. Mental Status: She is alert and oriented to person, place, and time. Psychiatric: Mood and Affect: Mood normal. Behavior: Behavior normal. Thought Content: Thought content normal. Judgment: Judgment normal. Feet:Shoes and socks removed, trace DP distal pulses, sensitive to 10 gm monofilament except not sensitive to monofilament tops of feet, left heel, and bunions noted Component Latest Ref Rng & Units 01/10/2022 01/28/2022 03/04/2022 03/25/2022 09/25/2022 03/01/2023 Protein, Total 6.3 - 8.0 g/dL 6.4 6.9 7.4 Albumin 3.9 - 4.9 g/dL 3.5 (L) 4.2 4.4 Calcium 8.5 - 10.2 mg/dL 8.2 (L) 9.2 9.6 Bilirubin, Total 0.2 - 1.3 mg/dL <0.2 (L) 0.3 0.2 Alkaline Phosphatase 34 - 123 U/L 122 101 106 AST 13 - 35 U/L 24 21 24 ALT 7 - 38 U/L 16 16 17 Glucose 74 - 99 mg/dL 190 (H) 105 (H) 106 (H) BUN 7 - 21 mg/dL 18 24 (H) 28 (H) Creatinine 0.58 - 0.96 mg/dL 1.18 (H) 1.16 (H) 1.12 (H) Sodium 136 - 144 mmol/L 135 (L) 142 139 Potassium 3.7 - 5.1 mmol/L 4.3 3.9 4.7 Chloride 97 - 105 mmol/L 102 102 101 CO2 22 - 30 mmol/L 23 28 24 Anion Gap 9 - 18 mmol/L 10 12 14 eGFR >=60 mL/min/1.73m 45 (L) 46 (L) 48 (L) WBC 3.70 - 11.00 k/uL 7.40 10.27 RBC 3.90 - 5.20 m/uL 4.61 5.09 Hemoglobin 11.5 - 15.5 g/dL 12.0 13.8 Hematocrit 36.0 - 46.0 % 38.8 43.7 MCV 80.0 - 100.0 fL 84.2 85.9 MCH 26.0 - 34.0 pg 26.0 27.1 MCHC 30.5 - 36.0 g/dL 30.9 31.6 RDW-CV 11.5 - 15.0 % 15.6 (H) 14.9 Platelet Count 150 - 400 k/uL 342 274 MPV 9.0 - 12.7 fL 9.5 10.8 Absolute nRBC <0.01 k/uL <0.01 <0.01 Cholesterol, Total <200 mg/dL 157 161 Triglyceride <150 mg/dL 127 144 HDL Cholesterol >39 mg/dL 43 50 Non HDL Cholesterol <130 mg/dL 114 111 Fasting Time hrs 12 12 VLDL Cholesterol <30 mg/dL 25 29 TC:HDL Ratio <5.10 3.65 3.22 LDL Cholesterol <100 mg/dL 89 82 LDL:HDL Ratio <2.54 2.07 1.64 Creatinine, Ur Random (UCRR) 20.0 - 300.0 mg/dL 73.7 41.5 Albumin, Urine Random mg/L 18.9 39.9 Albumin/Creat Ratio <30 mg/g 26 96 (H) Hemoglobin A1C 4.3 - 5.6 % 6.1 (H) 6.1 (H) Estimated Average Glucose mg/dL 128 128 Lipase 16 - 61 U/L 144 (H) NT Pro BNP <450 pg/mL 1,615 (H) 1,626 (H) Magnesium 1.7 - 2.3 mg/dL 2.1 Vitamin D 25 Hydroxy 31.0 - 80.0 ng/mL 60.1 Assessment and Plan Encounter Diagnosis ICD-10-CM 1. Type 2 diabetes mellitus with stage 3a chronic kidney disease, without long- term current use of insulin (HCC) E11.22 BASIC METABOLIC PNL N18.31 HGB A1C HGB A1C COMP METABOLIC PANEL ALBUMIN/CREAT RATIO RND UR 2. Essential hypertension I10 BASIC METABOLIC PNL COMP METABOLIC PANEL CBC 3. Hyperlipidemia, unspecified hyperlipidemia type E78.5 LIPID PANEL BASIC 4. Vitamin D deficiency E55.9 VITAMIN D 25 HYDROXY 5. Pulmonary HTN (HCC) I27.20 Discussed should be on at least night time O2. She will reconsider. Has follow up with Dr. Avendano intfall. 6. Bilateral bunions M21.611 M21.612 Follows with insecticide mixer 7. Nocturia R35.1 8. Atherosclerosis of [place] coronary artery of [place] heart without angina pectoris I25.10 9. Chronic diastolic congestive heart failure (HCC) I50.32 10. Palpitations R00.2 in AM. Discussed could be due to nocturnal hypoxemia Above issues addressed with patient. Patient involved in shared decision making for management of medical issues. History and medications reviewed. Epic updated as needed Refills and/or prescriptions taken care of and meds adjusted as indicated after reviewed history, exam and labs. Health Maintenance reviewed. Updated record and/or ordered tests as recorded. Encouraged on efforts at healthy diet and regular exercise and adequate sleep. I spent a total of 41 minutes on the date of the service which included [id number] patient care, completing clinical documentation, obtaining and/or reviewing separately obtained history, performing a medically appropriate examination, counseling and educating the patient/family/caregiver, ordering medications, tests, or procedures, independently interpreting results (not separately reported), and communicating results to the patient/family/caregiver. Noted daughter provides detailed history and concerns about health of mother and brother. Abril Salas MD [facility] Miscellaneous Notes* Telephone Encounter - Nichole Ly LPN - 03/10/2023 1:16 PM EDT Last office visit: 09/25/22 Next appointment scheduled: 03/14/23 Last labs: 03/01/23 last lipid panel * Telephone Encounter - Jodi Rosashl Pss - 03/10/2023 8:22 AM EDT Patient has been identified by name and date of : Yes Requested Prescriptions Pending Prescriptions Disp Refills atorvastatin (LIPITOR) 40 mg tablet 90 tablet 3 Sig: Take 1 tablet by mouth once daily. RX INSTRUCTIONS: Patient aware RX will be sent to pharmacy. No need to notify patient. Jodi Leiva Pss documented in this encounterOur [facility]04-28-2023 NoteHNO ID: [id number] Author: Miladis Foster PA-C Service: ? Author Type: Physician Medicaid Service Coordinator Type: Progress Notes Filed: 02/28/2023 3:58 PM Note Text: Patient: Kyle Arroyo PCP: Abril Salas MD CC: COPD follow up HPI: Kyle Arroyo 87 year old female former smoker, 58 pack years (quitting 1999) with PMH significant for CHF, CKD 3, CAD s/p stent, DM2, GERD, PAD, HTN, EKATERINA not on CPAP, COPD w/emphysema, PAH. Since the last Pulmonary Clinic visit 08/30/2022, the patient has not required ED care for exacerbation. There has been no hospital admission for exacerbation. Claims to be consistently compliant with prescribed maintenance Dulera and Spiriva. Uses albuterol rescue bronchodilator maybe once per week. Productive cough. Occasional sputum, non-purulent. No hemoptysis. No wheezing. No dyspnea at rest. Exertional dyspnea has not changed. Can go up the stairs without getting short of breath. Steady on her feet, no recent falls. Overall respiratory symptoms are stable. She is able to do most activities without difficulty. She had an episode of angina yesterday that resolved with one NTG tablet. Immunization History Administered Date(s) Administered COVID-19 original vaccine, age 12+ yr, monovalent ([employer] - PURPLE TOP) 11/27/2020 12/25/2020 diphtheria tetanus (DT) vaccine, pediatric 12/02/2002 influenza (HD-IIV) vaccine, age 65+ yr, high dose, PF (FLUZONE HIGH-DOSE) 08/24/2015 09/17/2016 08/15/2017 09/03/2018 09/06/2019 influenza (HD-IIV4) vaccine, age 65+ yr, high dose, quadrivalent, PF (FLUZONE HIGH-DOSE) 07/13/2020 07/17/2021 08/30/2022 influenza vaccine, unspecified formulation 09/12/2005 09/18/2006 10/01/2007 09/16/2008 08/14/2010 09/14/2011 09/12/2012 08/20/2013 pneumococcal (PCV13) vaccine, 13 valent (PREVNAR 13) 01/03/2015 pneumococcal (PPV23) vaccine, 23 valent (PNEUMOVAX 23) 09/01/2003 pneumococcal vaccine, unspecified formulation 08/03/2011 tetanus diphtheria (Td) vaccine, age 7+ yr, 5 Lf tetanus, PF (TENIVAC) 04/05/2015 PAST MEDICAL HISTORY Diagnosis Date Anemia of chronic renal failure, stage 3 (moderate) ([facility]) 09/01/2020 Arrhythmia BENIGN NEOPLASM LG BOWEL 08/21/2007 Adenomatous polyp removed from Sigmoid in 1992 Colonoscopy 06-15-07 (sister with colon ca): left sided tics with no polyps or masses CHF (congestive heart failure) ([facility]) Chronic airway obstruction, not elsewhere classified Chronic bronchitis. CKD (chronic kidney disease) stage 3, GFR 30-59 ml/min ([facility]) 08/27/2017 Closed Colles' fracture of left radius 02/27/2017 Coronary artery disease Diverticulosis of colon (without mention of hemorrhage) DM Neuro Manif Type II 03/20/2010 Esophageal reflux 08/21/2007 Hallux valgus (acquired) 03/20/2010 MACULAR DEGENERATION NOS 11/24/2007 [facility] 10-21-07: L eye with s/p cataract extraction-stable [facility] 2-08: L eye YAG capsulotomy after cataract extraction 11-23-07, 20/40 R, count fingers L Oropharyngeal dysphagia 09/13/2015 Honey thickened liquids. Osteopenia Osteopenia of multiple sites (Clinical osteoporosis) 03/11/2017 Other and unspecified hyperlipidemia Other psoriasis and similar disorders Psoriasis PAD (peripheral artery disease) (HCC) both lower extremities. 06/02/2018 Dr. 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) 01/15/2016 Restless legs syndrome (RLS) 08/21/2007 Unspecified essential hypertension Allergies: Aspirin Hives Iodine Hives Lyrica [Pregabalin] Swelling Comment:Leg edema, fluid retention, shortness of breath Nabumetone Intolerance Comment:muscle cramp Proair Hfa [Albuter* Other: See Comments Comment:INEFFECTIVE--NEEDS VENTOLIN HFA Tylenol [Acetaminop* Intolerance Comment:abd cramps, leg spasm losartan (COZAAR) 25 mg tabletTake 1 tablet by mouth once daily.Disp: 90 tabletRfl: 3 lansoprazole (PREVACID) 30 mg capsuleTake 1 capsule by mouth once daily.Disp: 90 capsuleRfl: 0 amLODIPine (NORVASC) 5 mg tabletTake 1 tablet by mouth once daily.Disp: 30 tabletRfl: 5 glipiZIDE (GLUCOTROL XL) 2.5 mg 24 hr tabletTake 1 tablet by mouth daily before breakfast.Disp: 90 tabletRfl: 2 fluticasone (FLONASE) 50 mcg/actuation nasal sprayUse 2 Sprays in each nostril once daily. Rinse mouth after use.Disp: 1 EachRfl: 0 tiotropium bromide (SPIRIVA RESPIMAT) 2.5 mcg/actuation inhalerInhale 2 Puffs as instructed once daily.Disp: 1 EachRfl: 11 isosorbide mononitrate ER (IMDUR) 30 mg 24 hr tabletTake 1 tablet by mouth once daily.Disp: 90 tabletRfl: 3 furosemide (LASIX) 40 mg tabletTake 1 tablet by mouth once daily. May also take 1 tablet once daily as needed (increased leg swelling).Disp: 180 tabletRfl: 3 metoprolol tartrate, short acting, (LOPRESSOR) 100 mg tabletTake 1 tablet by mouth twice daily.Disp: 180 tabletRfl: 3 Lancets lancetsTest blood sugar(s) once times daily. Dx: E11.49 (more content not included)...[facility]04-28-2023 Instructions* Patient Instructions* Rosana Wellington APRN.BUILDING COORDINATOR - 02/28/2023 9:10 AM EDT I sent a refill of your albuterol We will see you back in 6 months, call us if you need anything before then or need any refills documented in this encounterOur Lady Of Mercy [facility]04-28-2023 History of Present illness Narrative* Miladis Foster PA-C - 02/28/2023 9:00 AM EDT Patient: Kyle Arroyo PCP: Abril Salas MD CC: COPD follow up HPI: Kyle Arroyo 87 year old female former smoker, 58 pack years (quitting 1999) with PMH significant for CHF, CKD 3, CAD s/p stent, DM2, GERD, PAD, HTN, EKATERINA not on CPAP, COPD w/emphysema, PAH. Since the last Pulmonary Clinic visit 08/30/2022, the patient has not required ED care for exacerbation. There has been no hospital admission for exacerbation. Claims to be consistently compliant with prescribed maintenance Dulera and Spiriva. Uses albuterol rescue bronchodilator maybe once per week. Productive cough. Occasional sputum, non-purulent. No hemoptysis. No wheezing. No dyspnea at rest. Exertional dyspnea has not changed. Can go up the stairs without getting short of breath. Steady on her feet, no recent falls. Overall respiratory symptoms are stable. She is able to do most activities without difficulty. She had an episode of angina yesterday that resolved with one NTG tablet. Immunization History Administered Date(s) Administered COVID-19 original vaccine, age 12+ yr, monovalent ([employer] - PURPLE TOP) 11/27/2020 12/25/2020 diphtheria tetanus (DT) vaccine, pediatric 12/02/2002 influenza (HD-IIV) vaccine, age 65+ yr, high dose, PF (FLUZONE HIGH-DOSE) 08/24/2015 09/17/2016 08/15/2017 09/03/2018 09/06/2019 influenza (HD-IIV4) vaccine, age 65+ yr, high dose, quadrivalent, PF (FLUZONE HIGH-DOSE) 07/13/2020 07/17/2021 08/30/2022 influenza vaccine, unspecified formulation 09/12/2005 09/18/2006 10/01/2007 09/16/2008 08/14/2010 09/14/2011 09/12/2012 08/20/2013 pneumococcal (PCV13) vaccine, 13 valent (PREVNAR 13) 01/03/2015 pneumococcal (PPV23) vaccine, 23 valent (PNEUMOVAX 23) 09/01/2003 pneumococcal vaccine, unspecified formulation 08/03/2011 tetanus diphtheria (Td) vaccine, age 7+ yr, 5 Lf tetanus, PF (TENIVAC) 04/05/2015 PAST MEDICAL HISTORY Diagnosis Date Anemia of chronic renal failure, stage 3 (moderate) ([facility]) 09/01/2020 Arrhythmia BENIGN NEOPLASM LG BOWEL 08/21/2007 Adenomatous polyp removed from Sigmoid in 1992 Colonoscopy 06-15-07 (sister with colon ca): left sided tics with no polyps or masses CHF (congestive heart failure) ([facility]) Chronic airway obstruction, not elsewhere classified Chronic bronchitis. CKD (chronic kidney disease) stage 3, GFR 30-59 ml/min ([facility]) 08/27/2017 Closed Colles' fracture of left radius 02/27/2017 Coronary artery disease Diverticulosis of colon (without mention of hemorrhage) DM Neuro Manif Type II 03/20/2010 Esophageal reflux 08/21/2007 Hallux valgus (acquired) 03/20/2010 MACULAR DEGENERATION NOS 11/24/2007 [facility] 10-21-07: L eye with MD s/p cataract extraction-[facility] 2-08: L eye YAG capsulotomy after cataract extraction 11-23-07, 20/40 R, count fingers L Oropharyngeal dysphagia 09/13/2015 Honey thickened liquids. Osteopenia Osteopenia of multiple sites (Clinical osteoporosis) 03/11/2017 Other and unspecified hyperlipidemia Other psoriasis and similar disorders Psoriasis PAD (peripheral artery disease) ([facility]) both lower extremities. 06/02/2018 Dr. Jose Luis Marie, Vascular Surgery Peripheral sensory neuropathy due to type 2 diabetes mellitus ([facility]) 01/15/2016 Restless legs syndrome (RLS) 08/21/2007 Unspecified essential hypertension Allergies: Aspirin Hives Iodine Hives Lyrica [Pregabalin] Swelling Comment:Leg edema, fluid retention, shortness of breath Nabumetone Intolerance Comment:muscle cramp Proair Hfa [Albuter* Other: See Comments Comment:INEFFECTIVE--NEEDS VENTOLIN HFA Tylenol [Acetaminop* Intolerance Comment:abd cramps, leg spasm losartan (COZAAR) 25 mg tablet^Take 1 tablet by mouth once daily.^Disp: 90 tablet^Rfl: 3 lansoprazole (PREVACID) 30 mg capsule^Take 1 capsule by mouth once daily.^Disp: 90 capsule^Rfl: 0 amLODIPine (NORVASC) 5 mg tablet^Take 1 tablet by mouth once daily.^Disp: 30 tablet^Rfl: 5 glipiZIDE (GLUCOTROL XL) 2.5 mg 24 hr tablet^Take 1 tablet by mouth daily before breakfast.^Disp: 90 tablet^Rfl: 2 fluticasone (FLONASE) 50 mcg/actuation nasal spray^Use 2 Sprays in each nostril once daily. Rinse mouth after use.^Disp: 1 Each^Rfl: 0 tiotropium bromide (SPIRIVA RESPIMAT) 2.5 mcg/actuation inhaler^Inhale 2 Puffs as instructed once daily.^Disp: 1 Each^Rfl: 11 isosorbide mononitrate ER (IMDUR) 30 mg 24 hr tablet^Take 1 tablet by mouth once daily.^Disp: 90 tablet^Rfl: 3 furosemide (LASIX) 40 mg tablet^Take 1 tablet by mouth once daily. May also take 1 tablet once daily as needed (increased leg swelling).^Disp: 180 tablet^Rfl: 3 metoprolol tartrate, short acting, (LOPRESSOR) 100 mg tablet^Take 1 tablet by mouth twice daily.^Disp: 180 tablet^Rfl: 3 Lancets lancets^Test blood sugar(s) once times daily. Dx: E11.49 Insulin: No^Disp: 100 Each^Rfl: 11 nitroglycerin sublingual (NITROSTAT) 0.4 mg SL tablet^Dissolve 1 tablet under the tongue as needed.DISSOLVE ON TONGUE FOR CHEST PAIN. IF NO PAIN RELIEF, CALL 911 (Patient to call when needs)^Disp: 25 tablet^Rfl: 6 mometasone-formoterol (DULERA) 200-5 mcg/actuation inhaler^Inhale 1 Puff as instructed twice daily.^Disp: 13 g^Rfl: 11 VENTOLIN HFA 90 mcg/actuation inhaler^Inhale 2 Puffs as instructed every 6 hours as needed for wheezing/shortness of breath.^Disp: 18 g^Rfl: 5 blood sugar diagnostic (Advanced Ophthalmic PharmaTOUCH ULTRA TEST) test strip^Test blood sugar twice daily Dx. Code: E11.40^Disp: 200 Strip^Rfl: 3 atorvastatin (LIPITOR) 40 mg tablet^Take 1 tablet by mouth once daily.^Disp: 90 tablet^Rfl: 3 CREON 24,000-76,000 -120,000 unit delayed release capsule^Take 1 capsule by mouth three times daily.^Disp: ^Rfl: sodium chloride (AYR, OCEAN) 0.65 % nasal spray^Use 2 Sprays in the nose twice daily.^Disp: ^Rfl: (Patient not taking: Reported on 02/17/2023) Compression Knee Highs^KNEE HIGH COMPRESSION STOCKINGS 20-30 MM HG. DX: EDEMA^Disp: 1 Each^Rfl: 1 VIT C/MCKENNA AC/LUT/COPPER/ZNOX (PRESERVISION ORAL)^Take by mouth twice daily. ^Disp: ^Rfl: Jweeiltubaqvy-Gbwxgcsy-Hdijpm (CENTRUM SILVER) tab^Take 1 tablet by mouth once daily.^Disp: ^Rfl: 0 calcium carbonate/vitamin d3(CALCIUM 600 + D(3) 600 MG (1,500)-200 UNIT TAB)^Take one(1) tablet twice daily.^Disp: ^Rfl: 0 Social History Tobacco Use Smoking status: Former Packs/day: 1.30 Years: 45.00 Pack years: 58.50 Types: Cigarettes Start date: 11/03/1968 Quit date: 11/03/1999 Years since quittin.3 Smokeless tobacco: Never Vaping Use Vaping Use: Never used Substance Use Topics Alcohol use: No Drug use: No Family History Problem Relation Age of Onset Emphysema Mother Cancer Mother Lung Emphysema Father Heart Attack Father Alzheimer's Disease Sister Alzheimer's Disease Sister GI Sister pancreatitis Coronary Artery Disease Sister other (accident) Sister Colon Cancer Sister COPD Sister Emphysema other (unknown) Brother Cancer Brother lung Cancer Brother lung Asthma Daughter other (Chronic sinusiotis) Daughter Diabetes Son other (congestive heart failure) Son Cancer Niece breast PAST SURGICAL HISTORY Procedure Laterality Date BX BREAST PERC VACUUM/ROTN 05/09/2010 Left CC CORONARY STENT 08/07/2014 Stents x 2 CC CORONARY STENT 2004 Stent x 1 CHOLECYSTECTOMY 1984 Cholecystectomy COLONOSCOPY 05/16/2020 COLONOSCOPY FLX DX W/COLLJ SPEC WHEN PFRMD 09/06/2002 Colonoscopy COLONOSCOPY FLX DX W/COLLJ SPEC WHEN PFRMD 06/15/2007 Colonoscopy COLONOSCOPY FLX DX W/COLLJ SPEC WHEN PFRMD 11/26/2013 Colonoscopy COLONOSCOPY FLX DX W/COLLJ SPEC WHEN PFRMD 12/01/2014 Colonoscopy COLONOSCOPY FLX DX W/COLLJ SPEC WHEN PFRMD 03/16/2015 Colonoscopy COLONOSCOPY GEN ANES 10/13/2020 EGD 05/16/2020 EGD 10/13/2020 ESOPHAGOGASTRODUODENOSCOPY TRANSORAL DIAGNOSTIC 04/15/2001 EGD ESOPHAGOGASTRODUODENOSCOPY TRANSORAL DIAGNOSTIC 10/28/2014 EGD inpt [facility] LIG/TRNSXJ FLP TUBE ABDL/VAG APPR UNI/BI 1968 Tubal ligation TONSILLECTOMY PRIMARY/SECONDARY <AGE 12 1941 Tonsillectomy TOTAL ABDOMINAL HYSTERECT W/WO RMVL TUBE OVARY 1977 Hysterectomy, HUE, BSO, appendectomy XCAPSL CTRC RMVL INSJ IO LENS PROSTH W/O ECP x 2 right and left Cataract Removal I reviewed the past medical history, family history, social history and surgical history with changes noted above and updated in EMR. Review of Systems HENT: Negative. Eyes: Negative. Respiratory: Positive for cough. See [place] Cardiovascular: Positive for chest pain (Had to take NTG yesterday. Resolved.). Gastrointestinal: Positive for nausea (some nausea with her pills, no vomiting). Genitourinary: Negative. Musculoskeletal: Positive for joint pain (arthritis in hands). Skin: Negative. Neurological: Negative. Physical Exam Constitutional: Appearance: Normal appearance. She is obese. HENT: Head: Normocephalic and atraumatic. Right Ear: Tympanic membrane, ear canal and external ear normal. Left Ear: Tympanic membrane and external ear normal. Nose: Nose normal. Mouth/Throat: Mouth: Mucous membranes are moist. Pharynx: Oropharynx is clear. Eyes: Extraocular Movements: Extraocular movements intact. Conjunctiva/sclera: Conjunctivae normal. Pupils: Pupils are equal, round, and reactive to light. Cardiovascular: Rate and Rhythm: Normal rate and regular rhythm. Pulses: Normal pulses. Pulmonary: Effort: Pulmonary effort is normal. Abdominal: General: Abdomen is flat. Bowel sounds are normal. Palpations: Abdomen is soft. Musculoskeletal: General: Normal range of motion. Cervical back: Normal range of motion. Skin: General: Skin is warm and dry. Neurological: General: No focal deficit present. Mental Status: She is alert and oriented to person, place, and time. Mental status is at baseline. Psychiatric: Mood and Affect: Mood normal. BP (P) 128/60 Pulse 64 Resp 14 Wt 55.8 kg (123 lb) SpO2 92% BMI 24.84 kg/m DATA: Last Spirometry SPIROMETRY BASELINE ONLY Collected: 08/30/2022 9:03 AM (Final result) Narrative: [facility] [address] [place] [address] Test Date: 2022-08-30 Pat Name: KYLE ARROYO Department: Room: Gender: Female [employer] Installer: : 1935 Requested By: Order Number: [id number] Reading MD: Jasmin Avendano M.D. Interpretive Statements ATS/ERS acceptability and repeatability standards for DLCO met. ATS/ERS acceptability and repeatability standards for spirometry met. IMPRESSION: Spirometry indicates mild obstruction. The diffusing capacity is moderately reduced. Electronically Signed On 08-30-2022 16:10:17 EDT by Jasmin Avendano M.D. Site: WO ID: [id number] Name: KYLE ARROYO Visit Date: 08/30/2022 Doctor: [employer] Installer: Lucy Neal Age: 86 Date of : 1935 Gender: Female Race: White Height: 59.00 in Weight: 126.00 lbs BSA: 1.515 Diagnosis: COPD Dyspnea: Cough: Wheeze: Tobacco Product: Years Smoked: Packs/Day: Years Quit: Medications: Comments: ATS/ERS acceptability and repeatability standards for DLCO met. ATS/ERS acceptability and repeatability standards for spirometry met. Review Status: Not Reviewed PRE-BRONCH POST-BRONCH Pred LLN ULN Actual %Pred Actual %Chng SPIROMETRY FVC (L) 1.96 1.34 2.63 1.86 94 FEV1 (L) 1.49 1.01 1.94 1.16 77 FEV1/FVC 0.77 0.61 0.91 0.62 80 FEF25 (L/sec) 1.70 FEF50 (L/sec) 2.29 0.68 3.90 0.58 25 FEF75 (L/sec) 0.24 0.08 0.79 0.20 82 AZE56-35 (L/sec) 1.23 0.48 2.42 0.50 40 PEF L/s (L/sec) 3.35 1.90 4.80 3.21 95 FIVC (L) 1.70 FIF50 (L/sec) 2.65 PIF (L/sec) 2.87 Time (sec) 6.92 BRIELLE (L) 0.04 FET PEF (sec) 0.07 DIFFUSION DLCOunc (ml/min/mmHg) 16.61 10.44 22.78 9.33 56 DLunc/VA (ml/min/mmHg 4.25 2.94 5.57 2.34 55 VA (L) 4.24 3.14 5.34 3.99 93 BHT (sec) 11.87 IVC (L) 1.82 Last XR Chest - Impression Only XR CHEST 2V FRONTAL/LAT Exam End: 01/28/2022 9:57 AM (Final result) Impression: IMPRESSION: Interval development of bilateral diffusely coarsened lung markings. Stable atelectasis or fibrosis at the lung bases. Bronchiectasis. Cardiomegaly Hand Scraper: DALILA ... Last CT Chest - Impression Only CT CHEST WO IVCON Exam End: 05/25/2021 12:38 PM (Final result) Impression: IMPRESSION: No acute pulmonary process is identified. Emphysema with mild, diffuse bronchiectasis. The majority subcentimeter pulmonary nodules seen on prior examination are stable. A 6 mm nodule described within the right lower lobe on the prior examination has nearly completely resolved in the interval and was likely infectious or inflammatory in etiology. There is no new pulmonary nodule. There are prominent, less than 1 cm mediastinal and bilateral hilar lymph nodes, likely reactive, stable. ... Last Echocardiogram ECHO Collected: 07/09/2022 7:54 AM (Final result) Narrative: Echocardiography Report: Transthoracic Echo [facility] Date of service: 07/09/2022 7:54:56 AM DOORS Ordering physician: EMILIE CORRAL Indication: Syncope Technologist: Nohemi Guzman RDCS Interpreting physician: Jono Lund DO PATIENT: Name: MRS. KYLE ARROYO : 1935 Age: 86 years Gender: F History of coronary artery disease, hypertension, diabetes mellitus and dyslipidemia. Previous cardiovascular interventions: PCI (2012) Primary rhythm: sinus. Height: 149.90 cm BSA: 1.55 m Weight: 57.61 kg BMI: 25.6 kg/m Heart rate 69 bpm Color Doppler was utilized to interrogate the cardiac valves assessed and spectral Doppler was utilized to determine the flow velocities and pressure gradients reported in this exam. MEASUREMENTS: Value Indexed Normal Max aortic dimension 2.7 cm Ao < 3.8 Left atrial volume 44 ml (biplane A-L) 28 ml/m Ruthie <= 34 LV ID (diastole) 4.3 cm (2D) 2.79 cm/m LV ID (systole) 2.9 cm (2D) 1.87 cm/m IVS, leaflet tips 0.9 cm (2D) Posterior wall thickness 1.1 cm (2D) Left ventricular mass 144 g (2D) 93 g/m LV stroke volume 25 ml (2D 4-ch.) LV end diastolic volume 38 ml (2D 4-ch.) 24.3 ml/m 29<=EDVi<62 LV end systolic volume 12 ml (2D 4-ch.) 8.0 ml/m Ejection Fraction 67 % (2D 4-ch.) EF > 54 FINDINGS: LEFT VENTRICLE The left ventricle is small. Left ventricular systolic function is normal. Indeterminate left ventricular diastolic dysfunction. Mitral annular lateral E/e': 32.4. Mitral annular septal E/e': 16.2. Wall Motion: All scored segments are normal. RIGHT VENTRICLE The right ventricle is normal in size. Right ventricular systolic function is normal. RV systolic tissue Doppler velocity is 11.0 cm/s. Tricuspid annular displacement is 1.8 cm. Estimated right ventricular systolic pressure is 66 mmHg consistent with moderately severe pulmonary hypertension. Estimated right atrial pressure is 3 mmHg (although IVC not seen). LEFT ATRIUM The left atrial cavity is normal in size. RIGHT ATRIUM The right atrial cavity is normal in size. Inferior Vena Cava: The inferior vena cava appears normal measuring 1.6 cm. MITRAL VALVE The mitral valve leaflets are structurally normal. There is mild (1+ - 2+) mitral valve regurgitation. Regurgitant orifice area (PISA) is 0.11 cm . The pressure half time is 52 msec. The peak mitral E/A ratio is 2.03. The average mitral E/e' ratio is 24.3. The mitral flow deceleration time is 179 msec. TRICUSPID VALVE The tricuspid valve leaflets are structurally normal. There is mild (1+ - 2+) tricuspid valve regurgitation. AORTIC VALVE The aortic valve cusps are structurally normal. There is trace aortic valve regurgitation. Tricuspid aortic valve. The peak gradient is 5 mmHg (peak velocity = 114.0 cm/s). PULMONIC VALVE The pulmonic valve cusps are structurally normal. There is trace pulmonic valve regurgitation. AORTA The visualized aorta is normal in size. Measurements - Mid ascending aorta 2.7 cm. PERICARDIUM There is no pericardial effusion. There is an epicardial fat pad. Impression: CONCLUSIONS: - Exam indication: Syncope - The left ventricle is small. Left ventricular systolic function is normal. EF = 67 5% (2D 4-ch.) Indeterminate left ventricular diastolic dysfunction. - The right ventricle is normal in size. Right ventricular systolic function is normal. - There are no significant valvular abnormalities. - Mild MR (1-2+). - Estimated right ventricular systolic pressure is 66 mmHg consistent with moderately severe pulmonary hypertension. Estimated right atrial pressure is 3 mmHg (although IVC not seen). - Exam was compared with the prior echocardiographic exam performed on 10/30/2020, * * * Final * * * ASSESSMENT AND PLAN: (I20.8) Angina of effort (HCC) Comment: Resolved after one SL NTG. Following with cardiology, not other episodes. (I50.32) Chronic diastolic congestive heart failure (HCC) Comment: Follows cardiology, no CHF symptoms at this time. Has PRN lasix if needed for weight gain. (I27.20) Pulmonary HTN ([facility]) Comment: Per echo 07/09/2022 :Estimated right ventricular systolic pressure is 66 mmHg consistent with moderately severe pulmonary hypertension. Estimated right atrial pressure is 3 mmHg (although IVC not seen). No symptoms at this time. (J44.9) Stage 2 moderate COPD by GOLD classification ([facility]) (primary encounter diagnosis) Comment: Declines oxygen. Refilled albuterol inhaler. Symptoms well managed with Spiriva and Dulera. Not requiring PRN rescue inhaler. (K21.9) Gastroesophageal reflux disease without esophagitis Comment: Managed with lansoprazole. RTC 6 months All questions from patient were answered. Patient was instructed to call the office with any worsening symptoms: - shortness of breath - cough - increased rescue inhaler use - signs/symptoms of upper respiratory infection Rosana Wellington APRN-BUILDING COORDINATOR [facility] [place] Miladis Foster PA-C documented in this encounterOur [facility] Of [facility]04-17-2023 NoteHNO ID: [id number] Author: Emilie Corral MD Service: ? Author Type: Physician Type: Progress Notes Filed: 02/17/2023 2:43 PM Note Text: Emilie Corral MD Interventional Cardiology [address] [place] [address] Chief Complaint Patient presents with: Follow Up: 6 mo HISTORY OF PRESENT ILLNESS: Ms. Arroyo is a 87 year old female seen in my office today for follow-up prior history of hyperlipidemia hypertensive heart disease with coronary artery disease and status post angioplasty of the circumflex Patient doing well from the cardiac point of view denies any chest pain or shortness of breath she used nitroglycerin only 1 time echocardiography shows normal left ventricular function History of stage III chronic renal insufficiency Blood pressure log shows normal blood pressure numbers Cardiac Risk Factors age (male over 45, female over 55), hyperlipidemia, hypertension, family history of CAD PAST MEDICAL HISTORY Diagnosis Date Anemia of chronic renal failure, stage 3 (moderate) ([facility]) 09/01/2020 Arrhythmia BENIGN NEOPLASM LG BOWEL 08/21/2007 Adenomatous polyp removed from Sigmoid in 1992 Colonoscopy 06-15-07 (sister with colon ca): left sided tics with no polyps or masses CHF (congestive heart failure) ([facility]) Chronic airway obstruction, not elsewhere classified Chronic bronchitis. CKD (chronic kidney disease) stage 3, GFR 30-59 ml/min ([facility]) 08/27/2017 Closed Colles' fracture of left radius 02/27/2017 Coronary artery disease Diverticulosis of colon (without mention of hemorrhage) DM Neuro Manif Type II 03/20/2010 Esophageal reflux 08/21/2007 Hallux valgus (acquired) 03/20/2010 MACULAR DEGENERATION NOS 11/24/2007 [facility] 10-21-07: L eye with s/p cataract extraction-stable Galvin 2-08: L eye YAG capsulotomy after cataract extraction 11-23-07, 20/40 R, count fingers L Oropharyngeal dysphagia 09/13/2015 Honey thickened liquids. Osteopenia Osteopenia of multiple sites (Clinical osteoporosis) 03/11/2017 Other and unspecified hyperlipidemia Other psoriasis and similar disorders Psoriasis PAD (peripheral artery disease) ([facility]) both lower extremities. 06/02/2018 Dr. 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) 01/15/2016 Restless legs syndrome (RLS) 08/21/2007 Unspecified essential hypertension PAST SURGICAL HISTORY Procedure Laterality Date BX BREAST PERC VACUUM/ROTN 05/09/2010 Left CC CORONARY STENT 08/07/2014 Stents x 2 CC CORONARY STENT 2004 Stent x 1 CHOLECYSTECTOMY 1984 Cholecystectomy COLONOSCOPY 05/16/2020 COLONOSCOPY FLX DX W/COLLJ SPEC WHEN PFRMD 09/06/2002 Colonoscopy COLONOSCOPY FLX DX W/COLLJ SPEC WHEN PFRMD 06/15/2007 Colonoscopy COLONOSCOPY FLX DX W/COLLJ SPEC WHEN PFRMD 11/26/2013 Colonoscopy COLONOSCOPY FLX DX W/COLLJ SPEC WHEN PFRMD 12/01/2014 Colonoscopy COLONOSCOPY FLX DX W/COLLJ SPEC WHEN PFRMD 03/16/2015 Colonoscopy COLONOSCOPY GEN ANES 10/13/2020 EGD 05/16/2020 EGD 10/13/2020 ESOPHAGOGASTRODUODENOSCOPY TRANSORAL DIAGNOSTIC 04/15/2001 EGD ESOPHAGOGASTRODUODENOSCOPY TRANSORAL DIAGNOSTIC 10/28/2014 EGD inpt [facility] LIG/TRNSXJ FLP TUBE ABDL/VAG APPR UNI/BI 1967 Tubal ligation TONSILLECTOMY PRIMARY/SECONDARY Tonsillectomy TOTAL ABDOMINAL HYSTERECT W/WO RMVL TUBE OVARY 1978 Hysterectomy, HUE, BSO, appendectomy XCAPSL CTRC RMVL INSJ IO LENS PROSTH W/O ECP x 2 right and left Cataract Removal FAMILY HISTORY Problem Relation Age of Onset Emphysema Mother Cancer Mother Lung Emphysema Father Heart Attack Father Alzheimer's Disease Sister Alzheimer's Disease Sister GI Sister pancreatitis Coronary Artery Disease Sister other (accident) Sister Colon Cancer Sister COPD Sister Emphysema other (unknown) Brother Cancer Brother lung Cancer Brother lung Asthma Daughter other (Chronic sinusiotis) Daughter Diabetes Son other (congestive heart failure) Son Cancer Niece breast Social History Tobacco Use Smoking status: Former Packs/day: 1.30 Years: 45.00 Pack years: 58.50 Types: Cigarettes Start date: 11/03/1968 Quit date: 11/03/1999 Years since quittin.3 Smokeless tobacco: Never Vaping Use Vaping Use: Never used Substance Use Topics Alcohol use: No Drug use: No ALLERGIES Allergen Reactions Aspirin Hives Iodine Hives Lyrica [Pregabalin] Swelling Leg edema, fluid retention, shortness of breath Nabumetone Intolerance muscle cramp Proair Hfa [Albuter* Other: See Comments INEFFECTIVE--NEEDS VENTOLIN HFA Tylenol [Acetaminop* Intolerance abd cramps, leg spasm Medications: Current Outpatient Medications Medication Sig Dispense Refill lansoprazole (PREVACID) 30 mg capsule Take 1 capsule by mouth once daily. 90 capsule 0 amLODIPine (NORVASC) 5 mg tablet Take 1 tablet by mouth once daily. 30 tablet 5 glipiZIDE (GLUCOTROL XL) 2.5 mg 24 hr (more content not included)...[facility]04-17-2023 History of Present illness Narrative* Emilie Corral MD - 02/17/2023 2:09 PM EDT Images from the original note were not included. Emilie Corral MD Interventional Cardiology [address] [place], [place] [id number] Chief Complaint Patient presents with: Follow Up: 6 mo HISTORY OF PRESENT ILLNESS: Ms. Arroyo is a 87 year old female seen in my office today for follow-up prior history of hyperlipidemia hypertensive heart disease with coronary artery disease and status post angioplasty of the circumflex Patient doing well from the cardiac point of view denies any chest pain or shortness of breath she used nitroglycerin only 1 time echocardiography shows normal left ventricular function History of stage III chronic renal insufficiency Blood pressure log shows normal blood pressure numbers Cardiac Risk Factors age (male over 45, female over 55), hyperlipidemia, hypertension, family history of CAD PAST MEDICAL HISTORY Diagnosis Date Anemia of chronic renal failure, stage 3 (moderate) (HCC) 09/01/2020 Arrhythmia BENIGN NEOPLASM LG BOWEL 08/21/2007 Adenomatous polyp removed from Sigmoid in 1992 Colonoscopy 06-15-07 (sister with colon ca): left sided tics with no polyps or masses CHF (congestive heart failure) ([facility]) Chronic airway obstruction, not elsewhere classified Chronic bronchitis. CKD (chronic kidney disease) stage 3, GFR 30-59 ml/min ([facility]) 08/27/2017 Closed Colles' fracture of left radius 02/27/2017 Coronary artery disease Diverticulosis of colon (without mention of hemorrhage) DM Neuro Manif Type II 03/20/2010 Esophageal reflux 08/21/2007 Hallux valgus (acquired) 03/20/2010 MACULAR DEGENERATION NOS 11/24/2007 [facility] 10-21-07: L eye with MD s/p cataract extraction-stable Galvin 2-08: L eye YAG capsulotomy after cataract extraction 11-23-07, 20/40 R, count fingers L Oropharyngeal dysphagia 09/13/2015 Honey thickened liquids. Osteopenia Osteopenia of multiple sites (Clinical osteoporosis) 03/11/2017 Other and unspecified hyperlipidemia Other psoriasis and similar disorders Psoriasis PAD (peripheral artery disease) ([facility]) both lower extremities. 06/02/2018 Dr. Jose Luis Marie, Vascular Surgery Peripheral sensory neuropathy due to type 2 diabetes mellitus ([facility]) 01/15/2016 Restless legs syndrome (RLS) 08/21/2007 Unspecified essential hypertension PAST SURGICAL HISTORY Procedure Laterality Date BX BREAST PERC VACUUM/ROTN 05/09/2010 Left CC CORONARY STENT 08/07/2014 Stents x 2 CC CORONARY STENT 2004 Stent x 1 CHOLECYSTECTOMY 1984 Cholecystectomy COLONOSCOPY 05/16/2020 COLONOSCOPY FLX DX W/COLLJ SPEC WHEN PFRMD 09/06/2002 Colonoscopy COLONOSCOPY FLX DX W/COLLJ SPEC WHEN PFRMD 06/15/2007 Colonoscopy COLONOSCOPY FLX DX W/COLLJ SPEC WHEN PFRMD 11/26/2013 Colonoscopy COLONOSCOPY FLX DX W/COLLJ SPEC WHEN PFRMD 12/01/2014 Colonoscopy COLONOSCOPY FLX DX W/COLLJ SPEC WHEN PFRMD 03/16/2015 Colonoscopy COLONOSCOPY GEN ANES 10/13/2020 EGD 05/16/2020 EGD 10/13/2020 ESOPHAGOGASTRODUODENOSCOPY TRANSORAL DIAGNOSTIC 04/15/2001 EGD ESOPHAGOGASTRODUODENOSCOPY TRANSORAL DIAGNOSTIC 10/28/2014 EGD inpt [facility] LIG/TRNSXJ FLP TUBE ABDL/VAG APPR UNI/BI 1968 Tubal ligation TONSILLECTOMY PRIMARY/SECONDARY <AGE 12 1941 Tonsillectomy TOTAL ABDOMINAL HYSTERECT W/WO RMVL TUBE OVARY 1977 Hysterectomy, HUE, BSO, appendectomy XCAPSL CTRC RMVL INSJ IO LENS PROSTH W/O ECP x 2 right and left Cataract Removal FAMILY HISTORY Problem Relation Age of Onset Emphysema Mother Cancer Mother Lung Emphysema Father Heart Attack Father Alzheimer's Disease Sister Alzheimer's Disease Sister GI Sister pancreatitis Coronary Artery Disease Sister other (accident) Sister Colon Cancer Sister COPD Sister Emphysema other (unknown) Brother Cancer Brother lung Cancer Brother lung Asthma Daughter other (Chronic sinusiotis) Daughter Diabetes Son other (congestive heart failure) Son Cancer Niece breast Social History Tobacco Use Smoking status: Former Packs/day: 1.30 Years: 45.00 Pack years: 58.50 Types: Cigarettes Start date: 11/03/1968 Quit date: 11/03/1999 Years since quittin.3 Smokeless tobacco: Never Vaping Use Vaping Use: Never used Substance Use Topics Alcohol use: No Drug use: No ALLERGIES Allergen Reactions Aspirin Hives Iodine Hives Lyrica [Pregabalin] Swelling Leg edema, fluid retention, shortness of breath Nabumetone Intolerance muscle cramp Proair Hfa [Albuter* Other: See Comments INEFFECTIVE--NEEDS VENTOLIN HFA Tylenol [Acetaminop* Intolerance abd cramps, leg spasm Medications: Current Outpatient Medications Medication Sig Dispense Refill lansoprazole (PREVACID) 30 mg capsule Take 1 capsule by mouth once daily. 90 capsule 0 amLODIPine (NORVASC) 5 mg tablet Take 1 tablet by mouth once daily. 30 tablet 5 glipiZIDE (GLUCOTROL XL) 2.5 mg 24 hr tablet Take 1 tablet by mouth daily before breakfast. 90 tablet 2 fluticasone (FLONASE) 50 mcg/actuation nasal spray Use 2 Sprays in each nostril once daily. Rinse mouth after use. 1 Each 0 tiotropium bromide (SPIRIVA RESPIMAT) 2.5 mcg/actuation inhaler Inhale 2 Puffs as instructed once daily. 1 Each 11 isosorbide mononitrate ER (IMDUR) 30 mg 24 hr tablet Take 1 tablet by mouth once daily. 90 tablet 3 furosemide (LASIX) 40 mg tablet Take 1 tablet by mouth once daily. May also take 1 tablet once daily as needed (increased leg swelling). 180 tablet 3 metoprolol tartrate, short acting, (LOPRESSOR) 100 mg tablet Take 1 tablet by mouth twice daily. 180 tablet 3 Lancets lancets Test blood sugar(s) once times daily. Dx: E11.49 Insulin: No 100 Each 11 nitroglycerin sublingual (NITROSTAT) 0.4 mg SL tablet Dissolve 1 tablet under the tongue as needed.DISSOLVE ON TONGUE FOR CHEST PAIN. IF NO PAIN RELIEF, CALL 911 (Patient to call when needs) 25 tablet 6 mometasone-formoterol (DULERA) 200-5 mcg/actuation inhaler Inhale 1 Puff as instructed twice daily.13 g 11 VENTOLIN HFA 90 mcg/actuation inhaler Inhale 2 Puffs as instructed every 6 hours as needed for wheezing/shortness of breath. 18 g 5 blood sugar diagnostic (ONETOUCH ULTRA TEST) test strip Test blood sugar twice daily Dx. Code: E11.40 200 Strip 3 losartan (COZAAR) 25 mg tablet Take 1 tablet by mouth once daily. 90 tablet 3 atorvastatin (LIPITOR) 40 mg tablet Take 1 tablet by mouth once daily. 90 tablet 3 CREON 24,000-76,000 -120,000 unit delayed release capsule Take 1 capsule by mouth three times daily. Compression Knee Highs KNEE HIGH COMPRESSION STOCKINGS 20-30 MM HG. DX: EDEMA 1 Each 1 VIT C/MCKENNA AC/LUT/COPPER/ZNOX (PRESERVISION ORAL) Take by mouth twice daily. Uxapjikqrrddt-Itxhpldh-Utjjyx (CENTRUM SILVER) tab Take 1 tablet by mouth once daily. 0 calcium carbonate/vitamin d3(CALCIUM 600 + D(3) 600 MG (1,500)-200 UNIT TAB) Take one(1) tablet twice daily. 0 sodium chloride (AYR, OCEAN) 0.65 % nasal spray Use 2 Sprays in the nose twice daily. (Patient not taking: Reported on 02/17/2023) Current Facility-Administered Medications Medication Dose Route Frequency Provider Last Rate Last Admin perflutren lipid microspheres 1.3 mL in NaCl (PF) 0.9% 10 mL injection (DEFINITY) INTRAVENOUS DIRECTED PRErica Corral MD sodium chloride 0.9 % (flush) 10 mL (BD POSIFLUSH) 10 mL INTRAVENOUS DIRECTED PRN Emilie Corral MD Review of Systems Constitutional: Negative for chills, diaphoresis, fever, malaise/fatigue and weight loss. HENT: Negative for congestion, ear discharge, ear pain, hearing loss, nosebleeds, sinus pain, sore throat and tinnitus. Eyes: Negative for blurred vision, double vision, photophobia, pain, discharge and redness. Respiratory: Negative for cough, hemoptysis, sputum production, shortness of breath, wheezing and stridor. Cardiovascular: Negative for chest pain, palpitations, orthopnea, claudication, leg swelling and PND. Gastrointestinal: Negative for abdominal pain, blood in stool, constipation, diarrhea, heartburn, melena, nausea and vomiting. Genitourinary: Negative for dysuria, flank pain, frequency, hematuria and urgency. Musculoskeletal: Negative for back pain, falls, joint pain, myalgias and neck pain. Skin: Negative for itching and rash. Neurological: Negative for dizziness, tingling, tremors, sensory change, speech change, focal weakness, seizures, loss of consciousness, weakness and headaches. Endo/Heme/Allergies: Negative for environmental allergies and polydipsia. Does not bruise/bleed easily. Psychiatric/Behavioral: Negative for depression, hallucinations, memory loss, substance abuse and suicidal ideas. The patient is not nervous/anxious and does not have insomnia. Physical Examination: Vitals:BP 132/60 Pulse 70 Wt 127 lb (57.6kg) BP w/Orthostatic Vitals Date and Time Orthostatic BP Orthostatic Pulse BP Pulse BP Position BP Site BP Cuff Size 02/17/23 1344 -- -- 132/60 70 -- -- -- Last 2 Encounter Wt Readings: Date: Wt: 02/17/2023 57.6 kg (127 lb) 09/25/2022 56.7 kg (125 lb) Physical Exam Constitutional: General: She is not in acute distress. Appearance: She is not diaphoretic. HENT: Head: Normocephalic and atraumatic. Right Ear: External ear normal. Left Ear: External ear normal. Nose: Nose normal. Mouth/Throat: Pharynx: Oropharynx is clear. Eyes: General: Right eye: No discharge. Left eye: No discharge. Conjunctiva/sclera: Conjunctivae normal. Pupils: Pupils are equal, round, and reactive to light. Cardiovascular: Rate and Rhythm: Normal rate and regular rhythm. Heart sounds: Normal heart sounds, S1 normal and S2 normal. No murmur heard. No friction rub. No gallop. No S3 or S4 sounds. Pulmonary: Effort: Pulmonary effort is normal. No respiratory distress. Breath sounds: Normal breath sounds. No wheezing or rales. Chest: Chest wall: No tenderness. Abdominal: General: Abdomen is flat. Musculoskeletal: General: Normal range of motion. Cervical back: Normal range of motion and neck supple. Skin: General: Skin is warm and dry. Neurological: Mental Status: She is alert and oriented to person, place, and time. Psychiatric: Mood and Affect: Mood normal. Pertinent Labs: CBC: Hemoglobin (g/dL) Date Value 09/25/2022 13.8 11/16/2021 12.9 Hematocrit (%) Date Value 09/25/2022 43.7 11/16/2021 41.0 WBC (k/uL) Date Value 09/25/2022 10.27 11/16/2021 15.42 Platelet Count (k/uL) Date Value 09/25/2022 274 11/16/2021 386 BMP: Glucose (mg/dL) Date Value 09/25/2022 106 11/16/2021 191 Potassium (mmol/L) Date Value 09/25/2022 4.7 11/16/2021 4.2 Sodium (mmol/L) Date Value 09/25/2022 139 11/16/2021 137 Chloride (mmol/L) Date Value 09/25/2022 101 11/16/2021 100 CO2 (mmol/L) Date Value 09/25/2022 24 11/16/2021 25 Creatinine (mg/dL) Date Value 09/25/2022 1.12 11/16/2021 1.22 BUN (mg/dL) Date Value 09/25/2022 28 11/16/2021 14 Anion Gap (mmol/L) Date Value 09/25/2022 14 11/16/2021 12 Calcium (mg/dL) Date Value 11/16/2021 8.9 Calcium, Total (mg/dL) Date Value 09/25/2022 9.6 INR: Lipid Profile: Cholesterol, Total Date Value Ref Range Status 03/25/2022 157 <200 mg/dL Final Comment: <200 mg/dL, Desirable 200-239 mg/dL, Borderline high >239 mg/dL, High HDL Cholesterol Date Value Ref Range Status 03/25/2022 43 >39 mg/dL Final Comment: 40-59 mg/dL, Acceptable >59 mg/dL, High: Negative risk factor for coronary heart disease <40 mg/dL, Low: Positive risk factor for coronary heart disease LDL Cholesterol Date Value Ref Range Status 03/25/2022 89 <100 mg/dL Final Comment: <100 mg/dL, Optimal 100-129 mg/dL, Near optimal/above optimal 130-159 mg/dL, Borderline high 160-189 mg/dL, High >189 mg/dL, Very high Secondary prevention optimal LDL Cholesterol levels are recommended to be < 70 mg/dL Triglyceride Date Value Ref Range Status 03/25/2022 127 <150 mg/dL Final Comment: <150 mg/dL, Normal 150-199 mg/dL, Borderline high 200-499 mg/dL, High >499 mg/dL, Very high Hemoglobin A1C: No results found for: HGBA1C TSH: No results found for: TSHREFL Prior Cardiac Testing none Assessment and Plan: [age] years old prior history of coronary artery disease and angioplasty Coronary artery disease Status post circumflex stent Continue same cardiac medical treatment 2. Hypertensive heart disease Blood pressures well controlled Continue same blood pressure medication Follow up plannin months Electronically signed by Emilie Corral MD on February 17, 2023, 2:09 PM The above note was partially created using a dictation recognition software. A reasonable attempt has been made to correct any errors. documented in this encounterOur [facility]03-13-2023 Miscellaneous Notes* Telephone Encounter - Miladis Adair Hansen [facility] - 01/13/2023 10:22 AM EDT Pharmacy verified in Epic Patient has been identified by name and date of : Yes Patient aware RX will be sent to pharmacy. No need to notify patient. Patient phones for refill(s): Requested Prescriptions Pending Prescriptions Disp Refills lansoprazole (PREVACID) 30 mg capsule 90 capsule 0 Sig: Take 1 capsule by mouth once daily. amLODIPine (NORVASC) 5 mg tablet 30 tablet 5 Sig: Take 1 tablet by mouth once daily. Date of last office visit : 06/08/2020 Date of next office visit : Visit date not found Last 2 Encounter Wt Readings: Date: Wt: 09/25/2022 56.7 kg (125 lb) 08/30/2022 57.2 kg (126 lb) Please advise. Miladis Hansen Pss documented in this encounterOur [facility] Of Mercy [facility]01-31-2023 Miscellaneous Notes* Telephone Encounter - Robyn Chavez LPN - 12/03/2022 8:59 AM EST Patient calling asking for refill on generic flonase nasal spray she has not used I the rx for longtime. Pending rx to file. Please advise Patient has been identified by name and date of : Patient phones for refill(s): Requested Prescriptions Pending Prescriptions Disp Refills fluticasone (FLONASE) 50 mcg/actuation nasal spray 1 Each 0 Sig: Use 2 Sprays in each nostril once daily. Rinse mouth after use. Date of last office visit in primary care: 09/25/2022, no future appt scheduled Last 2 Encounter Wt Readings: Date: Wt: 09/25/2022 56.7 kg (125 lb) 08/30/2022 57.2 kg (126 lb) Previous labs/tests for medication: Not applicable Please advise. Thank you. Robyn Chavez LPN documented in this encounterOur Lady Of Mercy [facility]01-25-2023 Miscellaneous Notes* Telephone Encounter - Laurita Leiva LPN - 11/27/2022 11:28 AM EST Spoke with pt and information listed below given. Pt verbalizes understanding. Laurita Leiva LPN * Telephone Encounter - Rae Henson APRN.CNP - 11/27/2022 11:19 AM EST This was refilled on 09/25/22, patient needs to call her pharmacy * Telephone Encounter - Nikole Patel LPN - 11/26/2022 7:21 PM EST Patient has been identified by name and date of : No Patient phones for refill(s): Requested Prescriptions Pending Prescriptions Disp Refills isosorbide mononitrate ER (IMDUR) 30 mg 24 hr tablet 90 tablet 3 Sig: Take 1 tablet by mouth once daily. Date of last office visit in primary care: 09/25/2022 Last 2 Encounter Wt Readings: Date: Wt: 09/25/2022 56.7 kg (125 lb) 08/30/2022 57.2 kg (126 lb) Previous labs/tests for medication: Not applicable Please advise. Thank you. Nikole Patel LPN * Telephone Encounter - Alyse Jay - 11/26/2022 2:25 PM EST Patient has been identified by name and date of : Yes Requested Prescriptions Pending Prescriptions Disp Refills isosorbide mononitrate ER (IMDUR) 30 mg 24 hr tablet 90 tablet 3 Sig: Take 1 tablet by mouth once daily. RX INSTRUCTIONS: Patient aware RX will be sent to pharmacy. No need to notify patient. Alyse Jay documented in this encounterOur Lady Of Mercy Hospital12-12-2022 Miscellaneous Notes* Telephone Encounter - Nichole Ly LPN - 10/14/2022 10:45 AM EST Last office visit: 09/25/22 Next appointment scheduled: No future appointments scheduled at this time. Last labs: 09/25/23 Last HGBA1C * Telephone Encounter - Brenda Bowen - 10/14/2022 8:07 AM EST Patient has been identified by name and date of : Yes Requested Prescriptions Pending Prescriptions Disp Refills lansoprazole (PREVACID) 30 mg capsule 90 capsule 3 Sig: Take 1 capsule by mouth once daily. glipiZIDE XL (GLUCOTROL XL) 2.5 mg 24 hr tablet 90 tablet 3 Sig: Take 1 tablet by mouth daily before breakfast. RX INSTRUCTIONS: Patient aware RX will be sent to pharmacy. No need to notify patient. Brenda Murphy Pss documented in this encounterOur Lady Of Mercy Hospital11-23-2022 History of Present illness Narrative* Abril Salas MD - 09/25/2022 11:28 AM EST This note was created using NoteWriter. Subjective Kyle Arroyo is a 86 year old female. Patient presents with: F/U 6 months SUBJECTIVE: Kyle Arroyo is a 86 year old year old lady here today for follow up appointment for review of medical conditions. Episodes of syncope Also rapid heart rate. once a week. Uses the pickle to help with her lungs and oxygenation. Has oxygen--does not like wearing O2. Sugars overall doing well. Occasional lower and higher sugars; down to 89 yesterday. A couple in 200 in past couple months. PAST MEDICAL HISTORY Diagnosis Date Anemia of chronic renal failure, stage 3 (moderate) ([facility]) 09/01/2020 Arrhythmia BENIGN NEOPLASM LG BOWEL 08/21/2007 Adenomatous polyp removed from Sigmoid in 1992 Colonoscopy 06-15-07 (sister with colon ca): left sided tics with no polyps or masses CHF (congestive heart failure) ([facility]) Chronic airway obstruction, not elsewhere classified Chronic bronchitis. CKD (chronic kidney disease) stage 3, GFR 30-59 ml/min ([facility]) 08/27/2017 Closed Colles' fracture of left radius 02/27/2017 Coronary artery disease Diverticulosis of colon (without mention of hemorrhage) DM Neuro Manif Type II 03/20/2010 Esophageal reflux 08/21/2007 Hallux valgus (acquired) 03/20/2010 MACULAR DEGENERATION NOS 11/24/2007 [facility] 10-21-07: L eye with s/p cataract extraction-stable Galvin 2-08: L eye YAG capsulotomy after cataract extraction 11-23-07, 20/40 R, count fingers L Oropharyngeal dysphagia 09/13/2015 Honey thickened liquids. Osteopenia Osteopenia of multiple sites (Clinical osteoporosis) 03/11/2017 Other and unspecified hyperlipidemia Other psoriasis and similar disorders Psoriasis PAD (peripheral artery disease) ([facility]) both lower extremities. 06/02/2018 Dr. Jose Luis Marie, Vascular Surgery Peripheral sensory neuropathy due to type 2 diabetes mellitus ([facility]) 01/15/2016 Restless legs syndrome (RLS) 08/21/2007 Unspecified essential hypertension Current Outpatient Medications Medication Sig metoprolol tartrate, short acting, (LOPRESSOR) 100 mg tablet Take 1 tablet by mouth twice daily. Lancets lancets Test blood sugar(s) once times daily. Dx: E11.49 Insulin: No nitroglycerin sublingual (NITROSTAT) 0.4 mg SL tablet Dissolve 1 tablet under the tongue as needed.DISSOLVE ON TONGUE FOR CHEST PAIN. IF NO PAIN RELIEF, CALL 911 (Patient to call when needs) amLODIPine (NORVASC) 5 mg tablet Take 1 tablet by mouth once daily. mometasone-formoterol (DULERA) 200-5 mcg/actuation inhaler Inhale 1 Puff as instructed twice daily. VENTOLIN HFA 90 mcg/actuation inhaler Inhale 2 Puffs as instructed every 6 hours as needed for wheezing/shortness of breath. glipiZIDE (GLUCOTROL XL) 2.5 mg 24 hr tablet Take 1 tablet by mouth daily before breakfast. blood sugar diagnostic (ONETOUCH ULTRA TEST) test strip Test blood sugar twice daily Dx. Code: E11.40 losartan (COZAAR) 25 mg tablet Take 1 tablet by mouth once daily. atorvastatin (LIPITOR) 40 mg tablet Take 1 tablet by mouth once daily. CREON 24,000-76,000 -120,000 unit delayed release capsule Take 1 capsule by mouth three times daily. lansoprazole (PREVACID) 30 mg capsule Take 1 capsule by mouth once daily. furosemide (LASIX) 40 mg tablet Take 1 tablet by mouth twice daily. tiotropium bromide (SPIRIVA RESPIMAT) 2.5 mcg/actuation inhaler Inhale 2 Puffs as instructed once daily. isosorbide mononitrate ER (IMDUR) 30 mg 24 hr tablet Take 1 tablet by mouth once daily. sodium chloride (AYR, OCEAN) 0.65 % nasal spray Use 2 Sprays in the nose twice daily. Compression Knee Highs KNEE HIGH COMPRESSION STOCKINGS 20-30 MM HG. DX: EDEMA VIT C/MCKENNA AC/LUT/COPPER/ZNOX (PRESERVISION ORAL) Take by mouth twice daily. Ctjtorvszbhui-Yyxbvlql-Jyoyha (CENTRUM SILVER) tab Take 1 tablet by mouth once daily. calcium carbonate/vitamin d3(CALCIUM 600 + D(3) 600 MG (1,500)-200 UNIT TAB) Take one(1) tablet twice daily. Current Facility-Administered Medications Medication Dose Route Frequency perflutren lipid microspheres 1.3 mL in NaCl (PF) 0.9% 10 mL injection (DEFINITY) INTRAVENOUS DIRECTED PRN sodium chloride 0.9 % (flush) 10 mL (BD POSIFLUSH) 10 mL INTRAVENOUS DIRECTED PRN Review of Systems Objective BP 128/70 Pulse 79 Wt 56.7 kg (125 lb) SpO2 95% BMI 25.25 kg/m Physical Exam Constitutional: Appearance: Normal appearance. HENT: Head: Normocephalic. Eyes: Conjunctiva/sclera: Conjunctivae normal. Cardiovascular: Rate and Rhythm: Normal rate and regular rhythm. Heart sounds: Normal heart sounds. Pulmonary: Effort: Pulmonary effort is normal. Breath sounds: Normal breath sounds. Skin: General: Skin is warm and dry. Neurological: General: No focal deficit present. Mental Status: She is alert and oriented to person, place, and time. Psychiatric: Mood and Affect: Mood normal. Behavior: Behavior normal. Thought Content: Thought content normal. Judgment: Judgment normal. Assessment and Plan Encounter Diagnosis ICD-10-CM 1. Type 2 diabetes mellitus with diabetic neuropathy, without long-term current use of insulin ([facility]) E11.40 COMP METABOLIC PANEL CBC HGB A1C 2. Chronic diastolic congestive heart failure (HCC) I50.32 furosemide (LASIX) 40 mg tablet NT PRO BNP 3. Chronic obstructive pulmonary disease, unspecified COPD type ([facility]) J44.9 tiotropium bromide (SPIRIVA RESPIMAT) 2.5 mcg/actuation inhaler 4. Atherosclerosis of [place] coronary artery of [place] heart without angina pectoris I25.10 isosorbide mononitrate ER (IMDUR) 30 mg 24 hr tablet 5. Vitamin D deficiency E55.9 VITAMIN D 25 HYDROXY 6. Encounter for long-term current use of medication Z79.899 COMP METABOLIC PANEL CBC NT PRO BNP HGB A1C MAGNESIUM BLD VITAMIN D 25 HYDROXY 7. Syncope, unspecified syncope type R55 suspect low BP contributing 87 year old lady here to be formally re-established with me. History and medications reviewed. Epic updated as needed Above issues addressed with patient. Patient involved in shared decision making for management of medical issues. Refills taken care of and meds adjusted as indicated after reviewed history, exam and labs. Health Maintenance reviewed. Updated record and/or ordered tests as recorded. Encouraged on efforts at healthy diet and regular exercise and adequate sleep. Also adequate fluid intake to prevent orthostatic hypotension. Currently stable on current meds. Continue present management. Further evaluation and treatment as indicated. Abril Salas MD documented in this encounterOur [facility]-28-[facility] History of Present illness Narrative* Jasmin Avendano MD - 08/30/2022 9:30 AM EDT Images from the original note were not included. . [facility] [place] Note Patient name: Kyle Arroyo PCP: Ady Ignacio MD CC: Follow-up COPD HPI: Kyle Arroyo 86 year old female former 58 pack year smoker having quit in 1999 with PMH significant for CHF, CKD 3, CAD s/p stent, DM 2, GERD, PAD, HTN, EKATERINA not on CPAP former patient of Dr. Calvo. COPD (emphysema by CT), PAH treatment consists of Dulera , Spiriva and albuterol as needed (Prefers Ventolin, ProAir not effective). Qualified for oxygen but refuses use. She denies any new symptoms at this time. She has stable dyspnea on exertion. Prominent symptom is fatigue. Persistent cough with phlegm production. She has started Mucinex but only taking once a day. Occasional wheezing and chest tightness. No recent upper respiratory infection, hospitalization. No significant lower extremity edema. DATA: COPD Assessment Test I never cough 0 1 2 3 4 5 I cough all the time; Score 5 I have no phlegm 0 1 2 3 4 5 My chest is completely full of phlegm; Score 3 My chest does not feel tight at all 0 1 2 3 4 5 My chest chest feels very tight; Score 3 When I walk up a hill or one flight of stairs I am not breathless 0 1 2 3 4 5 When I walk up a hillor one flight or stairs I am very breathless; Score 3 I am not limited doing any activities at home 0 1 2 3 4 5 I am very limited doing activities at home; Score 3 I am confident leaving my home despite my lung condition 0 1 2 3 4 5 I am not at all confident leaving my home because of my lung condition; Score 3 I sleep soundly 0 1 2 3 4 5 don't sleep soundly because of my lungs; Score 4 I have lots of energy 0 1 2 3 4 5 I have no energy at all; Score 4 Total Score: 28 Review of PFTs shows mild obstruction and moderate reduction in diffusion PFT 07/2020: Spirometry shows moderate obstruction Imaging / Diagnostic Studies: DATE OF EXAM: Jan 28 2022 9:57AM [id number] - XR CHEST 2V FRONTAL/LAT / PROCEDURE REASON: multiple diagnoses EXAM DATE/TIME: 01/28/2022 9:57 AM COMPARISON: 11/20/2021 RESULT: Lines, tubes, and devices: None. Lungs and pleura: Interval development of diffusely coarsened lung markings. Stable atelectasis or fibrosis at the lung bases. Foci of bronchiectasis within the lower lung urrutia bilaterally. No significant pleural fluid. No pneumothorax Cardiomediastinal silhouette: Stable enlarged cardiomediastinal silhouette. Bones and soft tissues: Unremarkable. IMPRESSION: Interval development of bilateral diffusely coarsened lung markings. Stable atelectasis or fibrosis at the lung bases. Bronchiectasis. Cardiomegaly Chest CT 05/2021: IMPRESSION: No acute pulmonary process is identified. Emphysema with mild, diffuse bronchiectasis. The majority subcentimeter pulmonary nodules seen on prior examination are stable. A 6 mm nodule described within the right lower lobe on the prior examination has nearly completely resolved in the intervaland was likely infectious or inflammatory in etiology. There is no new pulmonary nodule. There are prominent, less than 1 cm mediastinal and bilateral hilar lymph nodes, likely reactive, stable. I personally reviewed the images above and agree with the assessments Cardiac Echo 07/2022: CONCLUSIONS: - Exam indication: Syncope - The left ventricle is small. Left ventricular systolic function is normal. EF = 67 5% (2D 4-ch.) Indeterminate left ventricular diastolic dysfunction. - The right ventricle is normal in size. Right ventricular systolic function is normal. - There are no significant valvular abnormalities. - Mild MR (1-2+). - Estimated right ventricular systolic pressure is 66 mmHg consistent with moderately severe pulmonary hypertension. Estimated right atrial pressure is 3 mmHg (although IVC not seen). - Exam was compared with the prior echocardiographic exam performed on 10/30/2020, PAST MEDICAL HISTORY Diagnosis Date Anemia of chronic renal failure, stage 3 (moderate) ([facility]) 09/01/2020 Arrhythmia BENIGN NEOPLASM LG BOWEL 08/21/2007 Adenomatous polyp removed from Sigmoid in 1992 Colonoscopy 06-15-07 (sister with colon ca): left sided tics with no polyps or masses CHF (congestive heart failure) ([facility]) Chronic airway obstruction, not elsewhere classified Chronic bronchitis. CKD (chronic kidney disease) stage 3, GFR 30-59 ml/min ([facility]) 08/27/2017 Closed Colles' fracture of left radius 02/27/2017 Coronary artery disease Diverticulosis of colon (without mention of hemorrhage) DM Neuro Manif Type II 03/20/2010 Esophageal reflux 08/21/2007 Hallux valgus (acquired) 03/20/2010 MACULAR DEGENERATION NOS 11/24/2007 [facility] 10-21-07: L eye with MD s/p cataract extraction-stable [place] 2-08: L eye YAG capsulotomy after cataract extraction 11-23-07, 20/40 R, count fingers L Oropharyngeal dysphagia 09/13/2015 Honey thickened liquids. Osteopenia Osteopenia of multiple sites (Clinical osteoporosis) 03/11/2017 Other and unspecified hyperlipidemia Other psoriasis and similar disorders Psoriasis PAD (peripheral artery disease) ([facility]) both lower extremities. 06/02/2018 Dr. Jose Luis Marie, Vascular Surgery Peripheral sensory neuropathy due to type 2 diabetes mellitus ([facility]) 01/15/2016 Restless legs syndrome (RLS) 08/21/2007 Unspecified essential hypertension ALLERGIES Allergen Reactions Aspirin Hives Iodine Hives Lyrica [Pregabalin] Swelling Leg edema, fluid retention, shortness of breath Nabumetone Intolerance muscle cramp Proair Hfa [Albuter* Other: See Comments INEFFECTIVE--NEEDS VENTOLIN HFA Tylenol [Acetaminop* Intolerance abd cramps, leg spasm metoprolol tartrate, short acting, (LOPRESSOR) 100 mg tablet^Take 1 tablet by mouth twice daily.^Disp: 180 tablet^Rfl: 3 Lancets lancets^Test blood sugar(s) once times daily. Dx: E11.49 Insulin: No^Disp: 100 Each^Rfl: 11 nitroglycerin sublingual (NITROSTAT) 0.4 mg SL tablet^Dissolve 1 tablet under the tongue as needed.DISSOLVE ON TONGUE FOR CHEST PAIN. IF NO PAIN RELIEF, CALL 911 (Patient to call when needs)^Disp: 25 tablet^Rfl: 6 amLODIPine (NORVASC) 5 mg tablet^Take 1 tablet by mouth once daily.^Disp: 30 tablet^Rfl: 5 mometasone-formoterol (DULERA) 200-5 mcg/actuation inhaler^Inhale 1 Puff as instructed twice daily.^Disp: 13 g^Rfl: 11 VENTOLIN HFA 90 mcg/actuation inhaler^Inhale 2 Puffs as instructed every 6 hours as needed for wheezing/shortness of breath.^Disp: 18 g^Rfl: 5 glipiZIDE (GLUCOTROL XL) 2.5 mg 24 hr tablet^Take 1 tablet by mouth daily before breakfast.^Disp: 90 tablet^Rfl: 1 blood sugar diagnostic (Advanced Ophthalmic PharmaTOUCH ULTRA TEST) test strip^Test blood sugar twice daily Dx. Code: E11.40^Disp: 200 Strip^Rfl: 3 losartan (COZAAR) 25 mg tablet^Take 1 tablet by mouth once daily.^Disp: 90 tablet^Rfl: 3 atorvastatin (LIPITOR) 40 mg tablet^Take 1 tablet by mouth once daily.^Disp: 90 tablet^Rfl: 3 CREON 24,000-76,000 -120,000 unit delayed release capsule^Take 1 capsule by mouth three times daily.^Disp: ^Rfl: lansoprazole (PREVACID) 30 mg capsule^Take 1 capsule by mouth once daily.^Disp: 90 capsule^Rfl: 3 furosemide (LASIX) 40 mg tablet^Take 1 tablet by mouth twice daily.^Disp: 180 tablet^Rfl: 1 tiotropium bromide (SPIRIVA RESPIMAT) 2.5 mcg/actuation inhaler^Inhale 2 Puffs as instructed once daily.^Disp: 1 Each^Rfl: 11 isosorbide mononitrate ER (IMDUR) 30 mg 24 hr tablet^Take 1 tablet by mouth once daily.^Disp: 90 tablet^Rfl: 3 sodium chloride (AYR, OCEAN) 0.65 % nasal spray^Use 2 Sprays in the nose twice daily.^Disp: ^Rfl: Compression Knee Highs^KNEE HIGH COMPRESSION STOCKINGS 20-30 MM HG. DX: EDEMA^Disp: 1 Each^Rfl: 1 VIT C/MCKENNA AC/LUT/COPPER/ZNOX (PRESERVISION ORAL)^Take by mouth twice daily. ^Disp: ^Rfl: Vwqumuzthijxx-Qbgenkqm-Tcpigz (CENTRUM SILVER) tab^Take 1 tablet by mouth once daily.^Disp: ^Rfl: 0 calcium carbonate/vitamin d3(CALCIUM 600 + D(3) 600 MG (1,500)-200 UNIT TAB)^Take one(1) tablet twice daily.^Disp: ^Rfl: 0 Social History Tobacco Use Smoking status: Former Packs/day: 1.30 Years: 45.00 Pack years: 58.50 Types: Cigarettes Start date: 11/03/1968 Quit date: 11/03/1999 Years since quittin.8 Smokeless tobacco: Never Vaping Use Vaping Use: Never used Substance Use Topics Alcohol use: No Drug use: No FAMILY HISTORY Problem Relation Age of Onset Emphysema Mother Cancer Mother Lung Emphysema Father Heart Attack Father Alzheimer's Disease Sister Alzheimer's Disease Sister GI Sister pancreatitis Coronary Artery Disease Sister other (accident) Sister Colon Cancer Sister COPD Sister Emphysema other (unknown) Brother Cancer Brother lung Cancer Brother lung Asthma Daughter other (Chronic sinusiotis) Daughter Diabetes Son other (congestive heart failure) Son Cancer Niece breast PAST SURGICAL HISTORY Procedure Laterality Date BX BREAST PERC VACUUM/ROTN 05/09/2010 Left CC CORONARY STENT 08/07/2014 Stents x 2 CC CORONARY STENT 2004 Stent x 1 CHOLECYSTECTOMY 1984 Cholecystectomy COLONOSCOPY 05/16/2020 COLONOSCOPY FLX DX W/COLLJ SPEC WHEN PFRMD 09/06/2002 Colonoscopy COLONOSCOPY FLX DX W/COLLJ SPEC WHEN PFRMD 06/15/2007 Colonoscopy COLONOSCOPY FLX DX W/COLLJ SPEC WHEN PFRMD 11/26/2013 Colonoscopy COLONOSCOPY FLX DX W/COLLJ SPEC WHEN PFRMD 12/01/2014 Colonoscopy COLONOSCOPY FLX DX W/COLLJ SPEC WHEN PFRMD 03/16/2015 Colonoscopy COLONOSCOPY GEN ANES 10/13/2020 EGD 05/16/2020 EGD 10/13/2020 ESOPHAGOGASTRODUODENOSCOPY TRANSORAL DIAGNOSTIC 04/15/2001 EGD ESOPHAGOGASTRODUODENOSCOPY TRANSORAL DIAGNOSTIC 10/28/2014 EGD inpt [facility] LIG/TRNSXJ FLP TUBE ABDL/VAG APPR UNI/BI 1967 Tubal ligation TONSILLECTOMY PRIMARY/SECONDARY <AGE 12 194 Tonsillectomy TOTAL ABDOMINAL HYSTERECT W/WO RMVL TUBE OVARY 1977 Hysterectomy, HUE, BSO, appendectomy XCAPSL CTRC RMVL INSJ IO LENS PROSTH W/O ECP x 2 right and left Cataract Removal PMH, Social history, family history and surgical history reviewed and updated in EMR REVIEW OF SYSTEMS: CONSTITUTIONAL: No fevers, chills, nightsweats, unintended weight loss HEENT: Denies nasal congestion/sinus symptoms, allergy problems. EYES: No diplopia or blurry vision. CARDIOVASCULAR: No chest pain, palpitations, orthopnea, PND, edema. PULM: See HPI GI: No dysphagia/odynophagia, reflux, constipation, diarrhea, changes in stool habits NEURO: No new balance problems, peripheral weakness/paresthesias or numbness of concern. PSY: No concerns regarding depression, anxiety INTEGUMENTARY: No new skin changes or rashes PHYSICAL EXAMINATION: BP 122/60 Pulse 64 Resp 14 Ht 4' 11 (1.50m) Wt 126 lb (57.2kg) SpO2 98% BMI 25.44 kg/(m^2). General Appearance: Elderly female, NAD Skin: Skin color, texture, turgor normal, no suspicious rashes or lesions. Head: Normocephalic, no masses, lesions, tenderness or abnormalities. Eyes: Sclera, conjunctiva normal Oropharynx: Upper plate, no oral lesions or thrush Neck: No JVD, no masses, no adenopathy. Back: Kyphosis Lungs: Not labored, normal to percussion, diminished breath sounds, no wheezes or crackles Heart: Regular rate and rhythm, no murmurs or gallops Extremities: No edema or clubbing. Assessment/Plan: 1. Centrilobular emphysema -Airflow has actually improved since last examination -Continue triple inhaler therapy -Influenza vaccine received today 2. Hypoxemia -Strongly encourage supplemental oxygen but patient continues to decline 3. 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 documented in this encounterOur [facility]10-28-2022 History of Present illness Narrative* VIVIANA Zelaya - 08/30/2022 8:56 AM EDT PULM FUNCTION SMARTBLOCK: Provider: Miladis Foster PA-C Assisting Tech: VIVIANA Zelaya Spirometry: 1 DLCO: 1 documented in this encounterOur [facility] Of [facility]10-17-2022 History of Present illness Narrative* Emilie Corral MD - 08/19/2022 12:37 PM EDT Images from the original note were not included. Emilie Corral MD Interventional Cardiology [facility] [address], [place] [address] [phone] Chief Complaint Patient presents with: Established Patient Follow-Up HISTORY OF PRESENT ILLNESS: Ms. Arroyo is a 86 year old female seen in my office for follow-up prior history of hyperlipidemia and hypertensive heart disease and coronary artery disease with angioplasty of the circumflex historyof peripheral vascular disease patient had a significant GI bleed in the past stage III chronic renal insufficiency slightly elevated potassium recurrent episodes of palpitation Echocardiogram shows moderate pulm hypertension with normal left heart function RV systolic pressure is 26 mmHg Holter monitor shows recurrent episodes of supraventricular tachycardia short-lived Patient doing reasonably well clinically she is not in congestive heart failure well compensated ongood medical treatment Cardiac Risk Factors age (male over 45, female over 55), hyperlipidemia, hypertension, family history of CAD PAST MEDICAL HISTORY Diagnosis Date Anemia of chronic renal failure, stage 3 (moderate) (HCC) 09/01/2020 Arrhythmia BENIGN NEOPLASM LG BOWEL 08/21/2007 Adenomatous polyp removed from Sigmoid in 1992 Colonoscopy 06-15-07 (sister with colon ca): left sided tics with no polyps or masses CHF (congestive heart failure) ([facility]) Chronic airway obstruction, not elsewhere classified Chronic bronchitis. CKD (chronic kidney disease) stage 3, GFR 30-59 ml/min ([facility]) 08/27/2017 Closed Colles' fracture of left radius 02/27/2017 Coronary artery disease Diverticulosis of colon (without mention of hemorrhage) DM Neuro Manif Type II 03/20/2010 Esophageal reflux 08/21/2007 Hallux valgus (acquired) 03/20/2010 MACULAR DEGENERATION NOS 11/24/2007 [facility] 10-21-07: L eye with MD s/p cataract extraction-stable [place] 12-11: L eye YAG capsulotomy after cataract extraction 11-23-07, 20/40 R, count fingers L Oropharyngeal dysphagia 09/13/2015 Honey thickened liquids. Osteopenia Osteopenia of multiple sites (Clinical osteoporosis) 03/11/2017 Other and unspecified hyperlipidemia Other psoriasis and similar disorders Psoriasis PAD (peripheral artery disease) ([facility]) both lower extremities. 06/02/2018 Dr. Jose Luis Marie, Vascular Surgery Peripheral sensory neuropathy due to type 2 diabetes mellitus ([facility]) 01/15/2016 Restless legs syndrome (RLS) 08/21/2007 Type II or unspecified type diabetes mellitus without mention of complication, not stated as uncontrolled Unspecified essential hypertension PAST SURGICAL HISTORY Procedure Laterality Date BX BREAST PERC VACUUM/ROTN 05/09/2010 Left CC CORONARY STENT 08/07/2014 Stents x 2 CC CORONARY STENT 2004 Stent x 1 CHOLECYSTECTOMY 1984 Cholecystectomy COLONOSCOPY 05/16/2020 COLONOSCOPY FLX DX W/COLLJ SPEC WHEN PFRMD 09/06/2002 Colonoscopy COLONOSCOPY FLX DX W/COLLJ SPEC WHEN PFRMD 06/15/2007 Colonoscopy COLONOSCOPY FLX DX W/COLLJ SPEC WHEN PFRMD 11/26/2013 Colonoscopy COLONOSCOPY FLX DX W/COLLJ SPEC WHEN PFRMD 12/01/2014 Colonoscopy COLONOSCOPY FLX DX W/COLLJ SPEC WHEN PFRMD 03/16/2015 Colonoscopy COLONOSCOPY GEN ANES 10/13/2020 EGD 05/16/2020 EGD 10/13/2020 ESOPHAGOGASTRODUODENOSCOPY TRANSORAL DIAGNOSTIC 04/15/2001 EGD ESOPHAGOGASTRODUODENOSCOPY TRANSORAL DIAGNOSTIC 10/28/2014 EGD inpt [facility] LIG/TRNSXJ FLP TUBE ABDL/VAG APPR UNI/BI 1967 Tubal ligation TONSILLECTOMY PRIMARY/SECONDARY <AGE 12 194 Tonsillectomy TOTAL ABDOMINAL HYSTERECT W/WO RMVL TUBE OVARY 1977 Hysterectomy, HUE, BSO, appendectomy XCAPSL CTRC RMVL INSJ IO LENS PROSTH W/O ECP x 2 right and left Cataract Removal FAMILY HISTORY Problem Relation Age of Onset Emphysema Mother Cancer Mother Lung Emphysema Father Heart Attack Father Alzheimer's Disease Sister Alzheimer's Disease Sister GI Sister pancreatitis Coronary Artery Disease Sister other (accident) Sister Colon Cancer Sister COPD Sister Emphysema other (unknown) Brother Cancer Brother lung Cancer Brother lung Asthma Daughter other (Chronic sinusiotis) Daughter Diabetes Son other (congestive heart failure) Son Cancer Niece breast Social History Tobacco Use Smoking status: Former Packs/day: 1.30 Years: 45.00 Pack years: 58.50 Types: Cigarettes Start date: 11/03/1968 Quit date: 11/03/1999 Years since quittin.8 Smokeless tobacco: Never Vaping Use Vaping Use: Never used Substance Use Topics Alcohol use: No Drug use: No ALLERGIES Allergen Reactions Aspirin Hives Iodine Hives Lyrica [Pregabalin] Swelling Leg edema, fluid retention, shortness of breath Nabumetone Intolerance muscle cramp Proair Hfa [Albuter* Other: See Comments INEFFECTIVE--NEEDS VENTOLIN HFA Tylenol [Acetaminop* Intolerance abd cramps, leg spasm Medications: Current Outpatient Medications Medication Sig Dispense Refill metoprolol tartrate, short acting, (LOPRESSOR) 100 mg tablet Take 1 tablet by mouth twice daily. 180 tablet 3 Lancets lancets Test blood sugar(s) once times daily. Dx: E11.49 Insulin: No 100 Each 11 nitroglycerin sublingual (NITROSTAT) 0.4 mg SL tablet Dissolve 1 tablet under the tongue as needed.DISSOLVE ON TONGUE FOR CHEST PAIN. IF NO PAIN RELIEF, CALL 911 (Patient to call when needs) 25 tablet 6 amLODIPine (NORVASC) 5 mg tablet Take 1 tablet by mouth once daily. 30 tablet 5 mometasone-formoterol (DULERA) 200-5 mcg/actuation inhaler Inhale 1 Puff as instructed twice daily.13 g 11 VENTOLIN HFA 90 mcg/actuation inhaler Inhale 2 Puffs as instructed every 6 hours as needed for wheezing/shortness of breath. 18 g 5 glipiZIDE (GLUCOTROL XL) 2.5 mg 24 hr tablet Take 1 tablet by mouth daily before breakfast. 90 tablet 1 blood sugar diagnostic (ONETOUCH ULTRA TEST) test strip Test blood sugar twice daily Dx. Code: E11.40 200 Strip 3 losartan (COZAAR) 25 mg tablet Take 1 tablet by mouth once daily. 90 tablet 3 atorvastatin (LIPITOR) 40 mg tablet Take 1 tablet by mouth once daily. 90 tablet 3 CREON 24,000-76,000 -120,000 unit delayed release capsule Take 1 capsule by mouth three times daily. lansoprazole (PREVACID) 30 mg capsule Take 1 capsule by mouth once daily. 90 capsule 3 furosemide (LASIX) 40 mg tablet Take 1 tablet by mouth twice daily. 180 tablet 1 tiotropium bromide (SPIRIVA RESPIMAT) 2.5 mcg/actuation inhaler Inhale 2 Puffs as instructed once daily. 1 Each 11 isosorbide mononitrate ER (IMDUR) 30 mg 24 hr tablet Take 1 tablet by mouth once daily. 90 tablet 3 sodium chloride (AYR, OCEAN) 0.65 % nasal spray Use 2 Sprays in the nose twice daily. Compression Knee Highs KNEE HIGH COMPRESSION STOCKINGS 20-30 MM HG. DX: EDEMA 1 Each 1 VIT C/MCKENNA AC/LUT/COPPER/ZNOX (PRESERVISION ORAL) Take by mouth twice daily. Cqfcvhokhmzkw-Vrggdxxl-Rdshsr (CENTRUM SILVER) tab Take 1 tablet by mouth once daily. 0 calcium carbonate/vitamin d3(CALCIUM 600 + D(3) 600 MG (1,500)-200 UNIT TAB) Take one(1) tablet twice daily. 0 Current Facility-Administered Medications Medication Dose Route Frequency Provider Last Rate Last Admin perflutren lipid microspheres 1.3 mL in NaCl (PF) 0.9% 10 mL injection (DEFINITY) INTRAVENOUS DIRECTED PRN Emilie Corral MD sodium chloride 0.9 % (flush) 10 mL (BD POSIFLUSH) 10 mL INTRAVENOUS DIRECTED PRN Emilie Corral MD Review of Systems Constitutional: Negative for chills, diaphoresis, fever, malaise/fatigue and weight loss. HENT: Negative for congestion, ear discharge, ear pain, hearing loss, nosebleeds, sinus pain, sore throat and tinnitus. Eyes: Negative for blurred vision, double vision, photophobia, pain, discharge and redness. Respiratory: Positive for shortness of breath. Negative for cough, hemoptysis, sputum production, wheezing and stridor. Cardiovascular: Positive for chest pain. Negative for palpitations, orthopnea, claudication, leg swelling and PND. Gastrointestinal: Negative for abdominal pain, blood in stool, constipation, diarrhea, heartburn, melena, nausea and vomiting. Genitourinary: Negative for dysuria, flank pain, frequency, hematuria and urgency. Musculoskeletal: Negative for back pain, falls, joint pain, myalgias and neck pain. Skin: Negative for itching and rash. Neurological: Negative for dizziness, tingling, tremors, sensory change, speech change, focal weakness, seizures, loss of consciousness, weakness and headaches. Endo/Heme/Allergies: Negative for environmental allergies and polydipsia. Does not bruise/bleed easily. Psychiatric/Behavioral: Negative for depression, hallucinations, memory loss, substance abuse and suicidal ideas. The patient is not nervous/anxious and does not have insomnia. Physical Examination: Vitals:BP 124/60 Pulse 68 Wt 125 lb (56.7kg) BP w/Orthostatic Vitals Date and Time Orthostatic BP Orthostatic Pulse BP Pulse BP Position BP Site BP Cuff Size 08/19/22 1120 -- -- 124/60 68 Sitting Left Arm Regular Adult Last 2 Encounter Wt Readings: Date: Wt: 08/19/2022 56.7 kg (125 lb) 05/30/2022 57.6 kg (127 lb) Physical Exam Constitutional: General: She is not in acute distress. Appearance: She is not diaphoretic. HENT: Head: Normocephalic and atraumatic. Right Ear: External ear normal. Left Ear: External ear normal. Nose: Nose normal. Mouth/Throat: Pharynx: Oropharynx is clear. Eyes: General: Right eye: No discharge. Left eye: No discharge. Conjunctiva/sclera: Conjunctivae normal. Pupils: Pupils are equal, round, and reactive to light. Cardiovascular: Rate and Rhythm: Normal rate and regular rhythm. Heart sounds: Normal heart sounds, S1 normal and S2 normal. No murmur heard. No friction rub. No gallop. No S3 or S4 sounds. Pulmonary: Effort: Pulmonary effort is normal. No respiratory distress. Breath sounds: Normal breath sounds. No wheezing or rales. Chest: Chest wall: No tenderness. Musculoskeletal: General: Normal range of motion. Cervical back: Normal range of motion and neck supple. Skin: General: Skin is warm and dry. Neurological: Mental Status: She is alert and oriented to person, place, and time. Psychiatric: Mood and Affect: Mood normal. Thought Content: Thought content normal. Judgment: Judgment normal. Pertinent Labs: CBC: Hemoglobin (g/dL) Date Value 01/10/2022 12.0 11/16/2021 12.9 Hematocrit (%) Date Value 01/10/2022 38.8 11/16/2021 41.0 WBC (k/uL) Date Value 01/10/2022 7.40 11/16/2021 15.42 Platelet Count (k/uL) Date Value 01/10/2022 342 11/16/2021 386 BMP: Glucose (mg/dL) Date Value 03/25/2022 105 11/16/2021 191 Potassium (mmol/L) Date Value 03/25/2022 3.9 11/16/2021 4.2 Sodium (mmol/L) Date Value 03/25/2022 142 11/16/2021 137 Chloride (mmol/L) Date Value 03/25/2022 102 11/16/2021 100 CO2 (mmol/L) Date Value 03/25/2022 28 11/16/2021 25 Creatinine (mg/dL) Date Value 03/25/2022 1.16 11/16/2021 1.22 BUN (mg/dL) Date Value 03/25/2022 24 11/16/2021 14 Anion Gap (mmol/L) Date Value 03/25/2022 12 11/16/2021 12 Calcium (mg/dL) Date Value 11/16/2021 8.9 Calcium, Total (mg/dL) Date Value 03/25/2022 9.2 INR: Lipid Profile: Cholesterol, Total Date Value Ref Range Status 03/25/2022 157 <200 mg/dL Final Comment: <200 mg/dL, Desirable 200-239 mg/dL, Borderline high >239 mg/dL, High HDL Cholesterol Date Value Ref Range Status 03/25/2022 43 >39 mg/dL Final Comment: 40-59 mg/dL, Acceptable >59 mg/dL, High: Negative risk factor for coronary heart disease <40 mg/dL, Low: Positive risk factor for coronary heart disease LDL Cholesterol Date Value Ref Range Status 03/25/2022 89 <100 mg/dL Final Comment: <100 mg/dL, Optimal 100-129 mg/dL, Near optimal/above optimal 130-159 mg/dL, Borderline high 160-189 mg/dL, High >189 mg/dL, Very high Secondary prevention optimal LDL Cholesterol levels are recommended to be < 70 mg/dL Triglyceride Date Value Ref Range Status 03/25/2022 127 <150 mg/dL Final Comment: <150 mg/dL, Normal 150-199 mg/dL, Borderline high 200-499 mg/dL, High >499 mg/dL, Very high Hemoglobin A1C: No results found for: HGBA1C TSH: No results found for: TSHREFL Prior Cardiac Testing NONE Assessment and Plan: 86 years old female patient stable cardiac condition Coronary artery disease Occasional angina using nitroglycerin No change in the severity of Or angina 2. Congestive heart failure Likely diastolic congestive heart failure Clinically she is well compensated 3. Supraventricular tachycardia On good dose of beta-blockers fFollow up plannin months Electronically signed by Emilie Corral MD on August 19, 2022, 12:37 PM The above note was partially created using a dictation recognition software. A reasonable attempt has been made to correct any errors. documented in this encounterOur Lady Of Mercy Hospital10-11-2022 Miscellaneous Notes* Telephone Encounter - Laurita Willams - 08/13/2022 11:48 AM EDT Pt to keep 08/19 appt. Laurita Willams * Telephone Encounter - Lissa Kaplan RN - 08/06/2022 2:23 PM EDT Attempted to contact pt. to gather further information. No answer. Per Patrizia Elena NP, these b/preadings are sufficient/ acceptable. Pt. can be seen by PCP or urgent care for any immediate needs.Lissa Kaplan, RN * Telephone Encounter - Yin Matos LPN - 08/05/2022 12:49 PM EDT Patient called. Verified name and date of . Patient called concerned about her blood pressure being low in afternoons. Today in the morning blood pressure was 129/64, after lunch 111/46. On Friday afternoon blood pressure 114/46. States when it gets too low she falls. Patient aware if she feels ill and is falling to go to emergency room. Verbalizes understanding. Please review and advise. Patient does have a appointment with you 08/19/2022. Yin Matos LPN documented in this encounterOur Lady Of Mercy Hospital10-07-2022 Miscellaneous Notes* Telephone Encounter - Jana Sofia - 08/09/2022 10:25 AM EDT Patient has been identified by name and date of : Yes Requested Prescriptions Pending Prescriptions Disp Refills metoprolol tartrate, short acting, (LOPRESSOR) 100 mg tablet 180 tablet 3 Sig: Take 1 tablet by mouth twice daily. RX INSTRUCTIONS: Patient aware RX will be sent to pharmacy. No need to notify patient. Jana Sofia documented in this encounterOur Lady Of Mercy Hospital09-15-2022 Miscellaneous Notes* Telephone Encounter - Nadja Bowen - 07/18/2022 8:17 AM EDT Patient has been identified by name and date of : Yes Last office visit in this department: 02/11/2022 Next office visit: 08/13/22 RX INSTRUCTIONS: Patient aware RX will be sent to pharmacy. No need to notify patient. Patient phones requesting refills as follows: Requested Prescriptions Pending Prescriptions Disp Refills nitroglycerin sublingual (NITROSTAT) 0.4 mg SL tablet 25 tablet 6 Sig: Dissolve 1 tablet under the tongue as needed. DISSOLVE ON TONGUE FOR CHEST PAIN. IF NO PAIN RELIEF, CALL 911 (Patient to call when needs) Please review and advise. Nadja Taveras Pss documented in this encounterOur Lady Of Mercy Hospital09-14-2022 Miscellaneous Notes* Telephone Encounter - Em Nazario LPN - 07/17/2022 4:28 PM EDT Last seen pcp 03/29/22 Next appt is 09/25/22 The dulera has already been sent to the pharmacy. Lancets would be needed. * Telephone Encounter - Brenda Murphy Pss - 07/17/2022 3:11 PM EDT Patient has been identified by name and date of : Yes Requested Prescriptions Pending Prescriptions Disp Refills Lancets lancets 100 Each 11 Sig: Test blood sugar(s) once times daily. Dx: E11.49 Insulin: No mometasone-formoterol (DULERA) 200-5 mcg/actuation inhaler 13 g 11 Sig: Inhale 1 Puff as instructed twice daily. RX INSTRUCTIONS: Patient aware RX will be sent to pharmacy. No need to notify patient. Brenda Murphy Pss documented in this encounterOur Lady Of Mercy Hospital09-14-2022 Miscellaneous Notes* Telephone Encounter - Lyssa Scruggs Ma - 07/17/2022 3:20 PM EDT Patient has been identified by name and date of : Yes Requested Prescriptions Pending Prescriptions Disp Refills mometasone-formoterol (DULERA) 200-5 mcg/actuation inhaler 13 g 11 Sig: Inhale 1 Puff as instructed twice daily. RX INSTRUCTIONS: Patient aware RX will be sent to pharmacy. No need to notify patient. Verified [facility] in [place]. Lyssa Scruggs Ma documented in this encounterOur Lady Of Mercy Hospital08-23-2022 History of Present illness Narrative* Lissa Kaplan RN - 06/25/2022 12:30 PM EDT EVENT MONITOR DISPOSABLE PATCH INSTRUCTIONS Patient Name: Kyle Arroyo Clinic Number: [id number] Skin prepped and cleansed with alcohol Patch secured to prepped area Monitor Activated Serial #: [id number] Patient Instructed: Prescribed order timeframe Bathing guidelines Usage of event button and diary documentation Return of monitor at the end of prescribed order Call with problems [phone] or [phone] ext. [phone] Patient expresses a good understanding of instructions Lissa Kaplan RN documented in this encounterOur Lady Of Mercy Hospital07-28-2022 Miscellaneous Notes* Telephone Encounter - Niurka Pope LPN - 05/30/2022 11:27 AM EDT Message viewed. Niurka Pope LPN documented in this encounterOur Lady Of Mercy Hospital07-28-2022 History of Present illness Narrative* Miladis Foster PA-C - 05/30/2022 9:00 AM EDT [facility] [place], 05/30/2022: Name: Kyle Arroyo : 1935 The patient is here today with Katherin, daughter, who attends the entire visit, exam and discussion. HPI: Kyle Arroyo is a 86 yo female former smoker, 58.4-kivh-yjwxe, with PMH significant for CHF, CKD stage 3, CAD, DM2, GERD, PAD, HTN, EKATERINA non-compliant with PAP therapy, moderate pulmonary HTN, and COPD. The patient is here for follow up of COPD. Since the last Pulmonary Clinic visit 01/28/2022, the patient has not required ED care for exacerbation. There has been no hospital admission for exacerbation. Claims to be consistently compliant with prescribed maintenance Rx Dulera and Spiriva. Rarely requires rescue bronchodilator use. Daily cough. White phlegm. No hemoptysis. Taking Mucinex daily. No wheezing. No dyspnea at rest. Exertional dyspnea has not changed. No lower extremity edema. Patient previously refused supplemental oxygen. Does not have oxygen in the home. Non-compliant with PAP therapy for EKATERINA. PMH: Updated with patient today. FAMH: Updated with patient today. SOCH: Updated with patient today. IMMUNIZATIONS Prevnar 13 - 01/03/2015 Pneumovax - 09/01/2003 Influenza - 07/17/2021 COVID-19 - 12/25/2020, 11/27/2020 ROS: General: Generally feels good. Appetite good. Drinking Boost supplements daily. Eyes, Ears, nose, throat: Post nasal drip and rhinorrhea, on flonase. No purulent nasal discharge, epistaxis. No hoarseness. Vision stable. Cardiac: No angina, edema, orthopnea. Resp: See HPI. GI: No heartburn, dysphagia. Musculoskeletal: No pain. Neuro: Sinus headaches. No focal weakness, tremor. Skin: No rash. Otherwise negative. Allergies were reviewed and updated, and medications were reconciled with the patient. PHYSICAL EXAMINATION: BP 102/64 Pulse 60 Resp 17 Wt 57.6 kg (127 lb) SpO2 94% BMI 25.65 kg/m Gen: No acute distress. Cooperative with examination. ENT: Oral hygeine and dentition good. Pharynx clear. No halitosis. No sign of oral thrush. Resp: No stridor, accessory respiratory muscle use, supra-sternal or intercostal retractions. No wheezes, crackles. CV: Regular rythm. Heart tones normal. Radial pulses normal. Abd: Non distended. MSK: No kyphoscoliosis. Ext: Warm and well perfused. No clubbing,cyanosis, edema. Skin: No rash, ecchymoses. Neuro: Mental status normal. Affect normal. No tremor. DATA REVIEW: PFT, 07/20/2020 IMPRESSION: The flow volume demonstrates an obstructive pattern. Spirometry indicates mild obstruction. Electronically Signed On 07-20-2020 15:53:32 EDT by Emerson Calvo Oximetry, 02/01/2022 Oximetry with Ambulation Test for This Encounter O2 Device O2 Adapter NC O2 Flow SpO2% HR Activity Ft Walked (ft) Time (min) Avg Speed (MPH) R/A 93 79 Resting R/A 87 120 Walking, usual pace 320 2.8 1.3 NC 2 95 97 Resting NC 2 92 118 Walking, usual pace 330 3 1.25 CXR, 01/28/2022 IMPRESSION: Interval development of bilateral diffusely coarsened lung markings. Stable atelectasis or fibrosis at the lung bases. Bronchiectasis. Cardiomegaly COMPARISON: 11/20/2021 RESULT: Lines, tubes, and devices: None. Lungs and pleura: Interval development of diffusely coarsened lung markings. Stable atelectasis or fibrosis at the lung bases. Foci of bronchiectasis within the lower lung urrutia bilaterally. No significant pleural fluid. No pneumothorax Cardiomediastinal silhouette: Stable enlarged cardiomediastinal silhouette. Bones and soft tissues: Unremarkable. Echocardiogram, 10/30/2020 CONCLUSIONS: - Technically difficult exam due to suboptimal positioning and body habitus. - Exam indication: Shortness of Breath - The left ventricle is normal in size. Left ventricular systolic function is normal. EF = 65 5% (visual est.) Grade I left ventricular diastolic dysfunction. - The right ventricle is normal in size. Right ventricular systolic function is normal. - There is mild tricuspid insufficiency present. - Estimated right ventricular systolic pressure is 53 mmHg consistent with moderate pulmonary hypertension. Estimated right atrial pressure is 3 mmHg based on IVC assessment. - Exam was compared with the prior echocardiographic exam performed on 05/24/2016, the right ventricular systolic pressure is now moderately elevated. ASSESSMENT/PLAN: 1. Stage 2 moderate COPD by GOLD classification ([facility]) - ICD9: 496, ICD10: J44.9 (primary diagnosis) Symptomatically doing well. Continue maintenance therapy with Dulera and Spiriva. Albuterol HFA inhaler, 2 inhalations 10 15 minutes prior to activities associated with shortness ofbreath, and as needed for rescue relief of shortness of breath or wheezing, up to 4 times daily. Up to date on annual influenza, pneumococcal and Covid 19 vaccines. Obtain updated PFTs at next office visit. - SPIROMETRY BASELINE ONLY - LUNG DIFFUSION CAPACITY ([facility]) 2. Pulmonary HTN ([facility]) - ICD9: 416.8, ICD10: I27.20 Last echocardiogram 10/30/2020 RVSP 53 mmHg consistent with moderate pulmonary hypertension Most likely multi-factorial. Patient non-compliant with PAP therapy. Continue Lasix as directed by cardiology. Patient declines supplemental oxygen. 3. Chronic hypoxemic respiratory failure (HCC) - ICD9: 518.83, 799.02, ICD10: J96.11 Declines supplemental oxygen. - LUNG DIFFUSION CAPACITY ([facility]) 4. Obstructive sleep apnea syndrome - ICD9: 327.23, ICD10: G47.33 Declines PAP therapy. I have no record of PSG or titration. I addressed the questions of the patient and daughter, and they expressed understanding and acceptance of my answers. Miladis Foster PA-C documented in this encounterOur Lady Of Mercy Hospital07-27-2022 Miscellaneous Notes* Telephone Encounter - Ady Ignacio MD - 05/29/2022 1:04 PM EDT Katherin dropped off BP log. 04/15/22, 04/25-05/23/22. Range 108/49 to 150/66. Report of fall 05/19/22 with dizziness and BP 120/47 P 69. Plan: Reduce amlodipine to 5 mg daily documented in this encounterOur Lady Of Mercy Hospital06-20-2022 Miscellaneous Notes* Telephone Encounter - Adair Celestin RN - 04/22/2022 8:07 AM EDT Patient reports she took her last pill today. Reports her BS is coming down pretty good. Fasting this morning 108. Patient has been identified by name and date of : Yes Patient phones for refill(s): Pending Prescriptions Disp Refills GLIPIZIDE ER 2.5 MG TABLET, EXTENDED RELEASE 24 HR 90 tablet 1 Sig: Take 1 tablet by mouth daily before breakfast. ANALILIA: No Date of last office visit with pcp: 03-29-22. Next appt: 09-25-22 Last 2 Encounter Wt Readings: Date: Wt: 03/29/2022 54 kg (119 lb) 02/11/2022 55.3 kg (122 lb) Previous labs/tests for medication: Diabetes: Hemoglobin A1C (%) Date Value 03/25/2022 6.1 11/16/2021 6.6 01/25/2021 6.5 Hemoglobin A1C (POCT) (%) Date Value 07/17/2021 5.8 Please advise. Thank you. Adair Celestin RN documented in this encounterOur Lady Of Mercy Hospital06-15-2022 Miscellaneous Notes* Telephone Encounter - Ambreen Bowen - 04/17/2022 12:01 PM EDT Patient has been identified by name and date of : Yes Pending Prescriptions Disp Refills ONETOUCH ULTRA TEST STRIPS 200 Strip 3 Sig: Test blood sugar twice daily Dx. Code: E11.40 ANALILIA: No RX INSTRUCTIONS: Patient is out today of test strips. Patient aware RX will be sent to pharmacy. No need to notify patient. Ambreen Hernandez Pss documented in this encounterOur Lady Of Mercy Hospital05-27-2022 History of Present illness Narrative* Ady Ignacio MD - 03/29/2022 9:03 AM EDT This note was created using Broadway [employer]. Subjective Kyle Arroyo is a 86 year old female. Her glucoses were improved on glipizide since she started . She didn't start the medication right away due to instructions from GI about holding medications for procedures. She had a barium swallow 03/20 and she was scheduled for EGD 04/04. GI symptoms were better. Review of Systems Constitutional: Negative. Respiratory: Negative. Cardiovascular: Negative. Gastrointestinal: Negative. ACTIVE PROBLEM LIST Hyperlipidemia Chronic Obstructive Airway Disease With Asthma ([facility]) Essential Hypertension Esophageal Reflux Sleep apnea, intolerant to CPAP. Unspecified Vitamin D Deficiency Coronary Artery Disease Involving [place] Coronary Artery of [place] Heart Without Angina Pectoris Macular Degeneration (Senile) of Retina, Unspecified Chronic Rhinitis Osteopenia of multiple sites (Clinical osteoporosis) Diabetes Mellitus With Neurological Manifestations ([facility]) Hallux Valgus, Acquired Stented Coronary Artery Lower Leg Edema Ckd (Chronic Kidney Disease) Stage 3, Gfr 30-59 Ml/Min ([facility]) PAD (peripheral artery disease) (HCC) both lower extremities. Angina of Effort (Hcc) Anemia of Chronic Renal Failure, Stage 3 (Moderate) (Hcc) Chronic Diastolic Congestive Heart Failure (Hcc) Type 2 Diabetes Mellitus With Diabetic Peripheral Angiopathy Without Gangrene, Without Long-Term Current Use of Insulin (Hcc) Type 2 Diabetes Mellitus With Stage 3 Chronic Kidney Disease, Without Long-Term Current Use of Insulin (Hcc) Hypertensive Heart and Kidney Disease With Chronic Diastolic Congestive Heart Failure and Stage 3 Chronic Kidney Disease (Hcc) Current Outpatient Medications Medication Sig glipiZIDE (GLUCOTROL XL) 2.5 mg 24 hr tablet Take 1 tablet by mouth daily before breakfast. losartan (COZAAR) 25 mg tablet Take 1 tablet by mouth once daily. atorvastatin (LIPITOR) 40 mg tablet Take 1 tablet by mouth once daily. CREON 24,000-76,000 -120,000 unit delayed release capsule Take 1 capsule by mouth three times daily. ramiro root (RAMIRO EXTRACT ORAL) Take by mouth. lansoprazole (PREVACID) 30 mg capsule Take 1 capsule by mouth once daily. furosemide (LASIX) 40 mg tablet Take 1 tablet by mouth twice daily. albuterol HFA (PROVENTIL HFA, VENTOLIN HFA) 90 mcg/actuation inhaler Inhale 2 Puffs as instructed every 6 hours as needed for wheezing/shortness of breath. tiotropium bromide (SPIRIVA RESPIMAT) 2.5 mcg/actuation inhaler Inhale 2 Puffs as instructed once daily. isosorbide mononitrate ER (IMDUR) 30 mg 24 hr tablet Take 1 tablet by mouth once daily. mometasone-formoterol (DULERA) 200-5 mcg/actuation inhaler Inhale 1 Puff as instructed twice daily. metoprolol tartrate, short acting, (LOPRESSOR) 100 mg tablet Take 1 tablet by mouth twice daily. nitroglycerin sublingual (NITROSTAT) 0.4 mg SL tablet Dissolve 1 tablet under the tongue as needed.DISSOLVE ON TONGUE FOR CHEST PAIN. IF NO PAIN RELIEF, CALL 911 (Patient to call when needs) amLODIPine (NORVASC) 5 mg tablet Take 1 tablet by mouth twice daily. blood sugar diagnostic (Mirimus ULTRA TEST) test strip Test blood sugar twice daily Dx. Code: E11.40 sodium chloride (AYR, OCEAN) 0.65 % nasal spray Use 2 Sprays in the nose twice daily. Compression Knee Highs KNEE HIGH COMPRESSION STOCKINGS 20-30 MM HG. DX: EDEMA Lancets lancets Test blood sugar(s) once times daily. Dx: E11.49 Insulin: No VIT C/MCKENNA AC/LUT/COPPER/ZNOX (PRESERVISION ORAL) Take by mouth twice daily. Nydpvvcyegapm-Ojnfvhvg-Pxxxdw (CENTRUM SILVER) ORAL Tab Take 1 tablet by mouth once daily. calcium carbonate/vitamin d3(CALCIUM 600 + D(3) 600 MG (1,500)-200 UNIT TAB) Take one(1) tablet twice daily. ferrous sulfate 325 mg (65 mg iron) tablet Take 1 tablet by mouth three times daily with meals. No current facility-administered medications for this visit. Objective BP 122/58 Pulse (!) 57 Resp 16 Wt 54 kg (119 lb) SpO2 97% BMI 24.04 kg/m Physical Exam Constitutional: General: She is not in acute distress. Cardiovascular: Rate and Rhythm: Regular rhythm. Bradycardia present. Heart sounds: No murmur heard. No gallop. Pulmonary: Effort: No respiratory distress. Breath sounds: Rhonchi present. No wheezing or rales. Abdominal: General: There is no distension. Palpations: Abdomen is soft. Tenderness: There is no abdominal tenderness. Musculoskeletal: Right lower leg: No edema. Left lower leg: No edema. Neurological: Mental Status: She is alert. Feet:Shoes and socks removed, No ulcers, calluses, abnormal pulses Decreased bilaterally and sensitive to 10 gm monofilament. Pes planus. Hammertoes. Component Latest Ref Rng & Units 03/25/2022 Protein, Total 6.3 - 8.0 g/dL 6.9 Albumin 3.9 - 4.9 g/dL 4.2 Calcium 8.5 - 10.2 mg/dL 9.2 Bilirubin, Total 0.2 - 1.3 mg/dL 0.3 Alkaline Phosphatase 34 - 123 U/L 101 AST 13 - 35 U/L 21 ALT 7 - 38 U/L 16 Glucose 74 - 99 mg/dL 105 (H) BUN 7 - 21 mg/dL 24 (H) Creatinine 0.58 - 0.96 mg/dL 1.16 (H) Sodium 136 - 144 mmol/L 142 Potassium 3.7 - 5.1 mmol/L 3.9 Chloride 97 - 105 mmol/L 102 CO2 22 - 30 mmol/L 28 Anion Gap 9 - 18 mmol/L 12 eGFR >=60 mL/min/1.73m 46 (L) Cholesterol, Total <200 mg/dL 157 Triglyceride <150 mg/dL 127 HDL Cholesterol >39 mg/dL 43 Non HDL Cholesterol <130 mg/dL 114 Fasting Time hrs 12 VLDL Cholesterol <30 mg/dL 25 TC:HDL Ratio <5.10 3.65 LDL Cholesterol <100 mg/dL 89 LDL:HDL Ratio <2.54 2.07 Creatinine, Ur Random (UCRR) 20.0 - 300.0 mg/dL Albumin, Urine Random mg/L Albumin/Creat Ratio <30 mg/g Hemoglobin A1C 4.3 - 5.6 % 6.1 (H) Estimated Average Glucose mg/dL 128 Glucose meter data or log was reviewed for the past month. Range: 117-137 fasting, 126-234 random. Average: n/a. Patient was testing BID. Assessment and Plan 1. Type 2 diabetes mellitus with stage 3b chronic kidney disease, without long- term current use of insulin (HCC) - ICD9: 250.40, 585.3, ICD10: E11.22, N18.32 (primary diagnosis) improved control - Continue current medications 2. Type 2 diabetes mellitus with diabetic neuropathy, without long-term current use of insulin (HCC) - ICD9: 250.60, 357.2, ICD10: E11.40 improved control - Continue current medications 3. Essential hypertension - ICD9: 401.9, ICD10: I10 - good control - Continue current medication(s) Ady Ignacio MD documented in this encounterOur Lady Of Mercy Hospital05-18-2022 Miscellaneous Notes* Telephone Encounter - Em Nazario LPN - 03/20/2022 10:06 AM EDT In review this rx is at the pharmacy with refills. Pharmacy called. * Telephone Encounter - Khloe Solomon [facility] - 03/20/2022 9:54 AM EDT Patient has been identified by name and date of : Yes Pending Prescriptions Disp Refills FUROSEMIDE 40 MG TABLET 180 tablet 1 Sig: Take 1 tablet by mouth twice daily. ANALILIA: No RX INSTRUCTIONS: Patient aware RX will be sent to pharmacy. No need to notify patient. Khloelenny Solomon [employer] documented in this encounterOur Lady Of Mercy Hospital04-27-2022 Miscellaneous Notes* Telephone Encounter - Em Nazario LPN - 02/27/2022 1:47 PM EDT Last seen pcp 01/01/22 Next appt is 03/29/22 * Telephone Encounter - Jacqueline Hernandez Pss - 02/27/2022 12:17 PM EDT Patient has been identified by name and date of : Yes Pending Prescriptions Disp Refills LOSARTAN 25 MG TABLET 90 tablet 3 Sig: Take 1 tablet by mouth once daily. ANALILIA: No ATORVASTATIN 40 MG TABLET 90 tablet 3 Sig: Take 1 tablet by mouth once daily. ANALILIA: No RX INSTRUCTIONS: Patient aware RX will be sent to pharmacy. No need to notify patient. Jacqueline Hernandez Pss documented in this encounterOur Lady Of Mercy Hospital04-25-2022 Miscellaneous Notes* Telephone Encounter - Em Nazario LPN - 02/25/2022 3:05 PM EDT Patient notified of results and provider's instructions. Patient verbalizes understanding. Em Nazario LPN * Telephone Encounter - Ady Ignacio MD - 02/25/2022 1:51 PM EDT Fasting labs, urine test ordered for next month. * Telephone Encounter - Nadja Taveras Pss - 02/25/2022 8:34 AM EDT Patient calling asking if Dr. Ignacio is wanting her to have a lab drawn and urinanalysis? Pleaseadvise and call patient. documented in this encounterOur Lady Of Mercy Hospital04-25-2022 Evaluation note* Diagnosis Type 2 diabetes mellitus with stage 3 chronic kidney disease, without long-term current use of insulin, unspecified whether stage 3a or 3b CKD (HCC)- Primary documented in this encounter [facility]04-[facility] History of Present illness Narrative* Leonel Paniagua MD - 02/11/2022 3:20 PM EDT Images from the original note were not included. [facility] SE[facility] CARDIOLOGY Cardiology ([facility]) [address] [facility] [id number] OUTPATIENT VISIT DATE 02/11/2022 PRIMARY CARE PHYSICIAN: Ady Ignacio [address] [place] [address] HISTORY OF PRESENT ILLNESS: Ms. Arroyo is a 86 year old woman with a history of coronary artery disease (left circumflex angioplasty), chronic diastolic heart failure, hypertension, dyslipidemia, and past significant smoking history who came in today for routine follow-up. Patient was accompanied to the office visit by her daughter. Patient's daughter has been extensively reviewing the patient's chart. She had multiple misinformation comments made during the course of the office visit. I corrected her on multiple issues that she stated were apparent in the testing she had recently completed including a CAT scan of the abdomen of which she stated there was an abnormality in the pancreas. She is also very concerned aboutthe BNP levels as it relates to her volume status. She was also concerned regarding her kidney function and the fact that she was worried about her diuretics. The patient, denies any worsening shortness of breath or dyspnea on exertion. From a heart failure standpoint, she has been doing very well.She has had no symptoms consistent with PND, orthopnea, or lower extremity edema. She has stable shortness of breath on exertion which has not increased in intensity since her last visit. She does report that she had improvement in her breathing after going back on Mucinex. She has had no overt chest pain or pressure. She has had abdominal pain which is worse with eating. She has had continued weight loss. She has been encouraged to use high-protein supplements by both her general foreman as well as her primary care physician. To date, she has not been able to consume supplements due to abdominal discomfort. She has a follow-up appointment scheduled with her manager publishing. She had extensive list of her home blood pressure readings from August till present. They were reviewed in detail.She has had stable systolic and diastolic blood pressures. PAST MEDICAL HISTORY Diagnosis Date Anemia of chronic renal failure, stage 3 (moderate) ([facility]) 09/01/2020 Arrhythmia BENIGN NEOPLASM LG BOWEL 08/21/2007 Adenomatous polyp removed from Sigmoid in 1992 Colonoscopy 06-15-07 (sister with colon ca): left sided tics with no polyps or masses CHF (congestive heart failure) ([facility]) Chronic airway obstruction, not elsewhere classified Chronic bronchitis. CKD (chronic kidney disease) stage 3, GFR 30-59 ml/min ([facility]) 08/27/2017 Closed Colles' fracture of left radius 02/27/2017 Coronary artery disease Diverticulosis of colon (without mention of hemorrhage) DM Neuro Manif Type II 03/20/2010 Esophageal reflux 08/21/2007 Hallux valgus (acquired) 03/20/2010 MACULAR DEGENERATION NOS 11/24/2007 [facility] 10-21-07: L eye with MD s/p cataract extraction-stable [facility] 2-08: L eye YAG capsulotomy after cataract extraction 11-23-07, 20/40 R, count fingers L Oropharyngeal dysphagia 09/13/2015 Honey thickened liquids. Osteopenia Osteopenia of multiple sites (Clinical osteoporosis) 03/11/2017 Other and unspecified hyperlipidemia Other psoriasis and similar disorders Psoriasis PAD (peripheral artery disease) ([facility]) both lower extremities. 06/02/2018 Dr. Jose Luis Marie, Vascular Surgery Peripheral sensory neuropathy due to type 2 diabetes mellitus ([facility]) 01/15/2016 Restless legs syndrome (RLS) 08/21/2007 Type II or unspecified type diabetes mellitus without mention of complication, not stated as uncontrolled Unspecified essential hypertension PAST SURGICAL HISTORY Procedure Laterality Date BX BREAST PERC VACUUM/ROTN 05/09/2010 Left CC CORONARY STENT 08/07/2014 Stents x 2 CC CORONARY STENT 2003 Stent x 1 CHOLECYSTECTOMY 1984 Cholecystectomy COLONOSCOPY 05/16/2020 COLONOSCOPY FLX DX W/COLLJ SPEC WHEN PFRMD 09/06/2002 Colonoscopy COLONOSCOPY FLX DX W/COLLJ SPEC WHEN PFRMD 06/15/2007 Colonoscopy COLONOSCOPY FLX DX W/COLLJ SPEC WHEN PFRMD 11/26/2013 Colonoscopy COLONOSCOPY FLX DX W/COLLJ SPEC WHEN PFRMD 12/01/2014 Colonoscopy COLONOSCOPY FLX DX W/COLLJ SPEC WHEN PFRMD 03/16/2015 Colonoscopy COLONOSCOPY GEN ANES 10/13/2020 EGD 05/16/2020 EGD 10/13/2020 ESOPHAGOGASTRODUODENOSCOPY TRANSORAL DIAGNOSTIC 04/15/2001 EGD ESOPHAGOGASTRODUODENOSCOPY TRANSORAL DIAGNOSTIC 10/28/2014 EGD inpt [facility] LIG/TRNSXJ FLP TUBE ABDL/VAG APPR UNI/BI 1968 Tubal ligation TONSILLECTOMY PRIMARY/SECONDARY <AGE 12 1941 Tonsillectomy TOTAL ABDOMINAL HYSTERECT W/WO RMVL TUBE OVARY 1977 Hysterectomy, HUE, BSO, appendectomy XCAPSL CTRC RMVL INSJ IO LENS PROSTH W/O ECP x 2 right and left Cataract Removal SOCIAL HISTORY Social History Tobacco Use Smoking status: Former Smoker Packs/day: 1.30 Years: 45.00 Pack years: 58.50 Types: Cigarettes Start date: 11/03/1968 Quit date: 11/03/1999 Years since quittin.2 Smokeless tobacco: Never Used Vaping Use Vaping Use: Never used Substance Use Topics Alcohol use: No Drug use: No FAMILY HISTORY Problem Relation Age of Onset Emphysema Mother Cancer Mother Lung Emphysema Father Heart Attack Father Alzheimer's Disease Sister Alzheimer's Disease Sister GI Sister pancreatitis Coronary Artery Disease Sister other (accident) Sister Colon Cancer Sister COPD Sister Emphysema other (unknown) Brother Cancer Brother lung Cancer Brother lung Asthma Daughter other (Chronic sinusiotis) Daughter Diabetes Son other (congestive heart failure) Son Cancer Niece breast ALLERGIES: ALLERGIES Allergen Reactions Aspirin Hives Iodine Hives Lyrica [Pregabalin] Swelling Leg edema, fluid retention, shortness of breath Nabumetone Intolerance muscle cramp Proair Hfa [Albuter* Other: See Comments INEFFECTIVE--NEEDS VENTOLIN HFA Tylenol [Acetaminop* Intolerance abd cramps, leg spasm MEDICATIONS: ramiro root (RAMIRO EXTRACT ORAL) Take by mouth. glimepiride (AMARYL) 4 mg tablet Take 1 tablet by mouth daily with breakfast. lansoprazole (PREVACID) 30 mg capsule Take 1 capsule by mouth once daily. furosemide (LASIX) 40 mg tablet Take 1 tablet by mouth twice daily. albuterol HFA (PROVENTIL HFA, VENTOLIN HFA) 90 mcg/actuation inhaler Inhale 2 Puffs as instructed every 6 hours as needed for wheezing/shortness of breath. tiotropium bromide (SPIRIVA RESPIMAT) 2.5 mcg/actuation inhaler Inhale 2 Puffs as instructed once daily. isosorbide mononitrate ER (IMDUR) 30 mg 24 hr tablet Take 1 tablet by mouth once daily. mometasone-formoterol (DULERA) 200-5 mcg/actuation inhaler Inhale 1 Puff as instructed twice daily. metoprolol tartrate, short acting, (LOPRESSOR) 100 mg tablet Take 1 tablet by mouth twice daily. nitroglycerin sublingual (NITROSTAT) 0.4 mg SL tablet Dissolve 1 tablet under the tongue as needed.DISSOLVE ON TONGUE FOR CHEST PAIN. IF NO PAIN RELIEF, CALL 911 (Patient to call when needs) amLODIPine (NORVASC) 5 mg tablet Take 1 tablet by mouth twice daily. ferrous sulfate 325 mg (65 mg iron) tablet Take 1 tablet by mouth three times daily with meals. atorvastatin (LIPITOR) 40 mg tablet Take 1 tablet by mouth once daily. losartan (COZAAR) 25 mg tablet Take 1 tablet by mouth once daily. blood sugar diagnostic ([employer] CRMUCH ULTRA TEST) test strip Test blood sugar twice daily Dx. Code: E11.40 sodium chloride (AYR, OCEAN) 0.65 % nasal spray Use 2 Sprays in the nose twice daily. Compression Knee Highs KNEE HIGH COMPRESSION STOCKINGS 20-30 MM HG. DX: EDEMA Lancets lancets Test blood sugar(s) once times daily. Dx: E11.49 Insulin: No VIT C/MCKENNA AC/LUT/COPPER/ZNOX (PRESERVISION ORAL) Take by mouth twice daily. Uunpmofyxkumx-Zxydzgvc-Fxwrwz (CENTRUM SILVER) ORAL Tab Take 1 tablet by mouth once daily. calcium carbonate/vitamin d3(CALCIUM 600 + D(3) 600 MG (1,500)-200 UNIT TAB) Take one(1) tablet twice daily. diphenhydrAMINE (BENADRYL) 50 mg capsule Take 1 capsule by mouth as directed for 1 dose. one (1) hour prior to exam. REVIEW OF SYSTEMS: Review of Systems Constitutional: Negative for chills, fever, malaise/fatigue and weight loss. HENT: Negative for hearing loss and sore throat. Eyes: Negative for blurred vision and double vision. Respiratory: Positive for shortness of breath. Cardiovascular: Negative. Genitourinary: Negative for dysuria, frequency, hematuria and urgency. Musculoskeletal: Positive for joint pain. Skin: Negative. Neurological: Negative for dizziness, seizures, loss of consciousness, weakness and headaches. Endo/Heme/Allergies: Negative for environmental allergies. Does not bruise/bleed easily. Psychiatric/Behavioral: Negative for depression. PHYSICAL EXAMINATION: BP 120/60 (BP Site: Left Arm, BP Position: Sitting, BP Cuff Size: Regular Adult) Pulse 72 Wt 55.3 kg (122 lb) BMI 24.64 kg/m General: Very pleasant woman sitting comfortable no apparent distress. She is alert and oriented x2. She had some difficulties with the day. HEENT: Carotid upstrokes are brisk bilaterally no bruits detected. There is no JVD. Pulmonary: Diminished breath sounds noted throughout. No rales, wheezes, rhonchi Cardiovascular: Normal S1, S2 with regular rate and rhythm. No murmurs, rubs, gallops Extremities: Warm, well-perfused, no lower extremity edema. CARDIOVASCULAR MEDICINE TESTING: ECG in the office 08/13/2021: Normal sinus rhythm with normal axis and intervals no significant ST or T wave changes Echocardiogram 10/30/20: CONCLUSIONS: - Technically difficult exam due to suboptimal positioning and body habitus. - Exam indication: Shortness of Breath - The left ventricle is normal in size. Left ventricular systolic function is normal. EF = 65 5% (visual est.) Grade I left ventricular diastolic dysfunction. - The right ventricle is normal in size. Right ventricular systolic function is normal. - There is mild tricuspid insufficiency present. - Estimated right ventricular systolic pressure is 53 mmHg consistent with moderate pulmonary hypertension. Estimated right atrial pressure is 3 mmHg based on IVC assessment. - Exam was compared with the prior echocardiographic exam performed on 05/24/2016, the right ventricular systolic pressure is now moderately elevated. CT Scan 11/20/20: IMPRESSION: 1. There are some reticular and groundglass opacities in the right upper lobe possibly due to resolving pneumonia 2. 6 mm nodule in the posterior right lower lobe 3. Emphysema Heart, pericardium, and thoracic vessels: The thoracic aorta and main pulmonary artery are normal in caliber. There are atherosclerotic calcifications of the thoracic aorta. The cardiac chambers are normal in size. Coronary artery atherosclerotic calcifications are noted, although the study is not optimized for coronary assessment. No pericardial effusion or thickening. Incidental Finding: Follow-up Acuity: Incidental Finding: Solid 6-8 mm (solitary nodule) Routing Code: RI_1 Recommendation: CT Chest WO IVCON Time Frame: 6-12 months Comments: If stable on follow-up imaging, a repeat chest CT exam in 12 months (18-24 months from the initial exam) is recommended IMPRESSION: Ms. Arroyo is a 86 year old woman with a history of coronary artery disease (remote circumflex angioplasty), chronic diastolic congestive heart failure, hypertension, dyslipidemia, prior significant smoking history with COPD, at least moderate pulmonary hypertension noted on echocardiogram October 2020, diabetes ([id number]-tbyzjntbz), and chronic kidney disease who presents for routine follow-up. PLAN AND RECOMMENDATIONS: 1. Coronary artery disease involving [place] coronary artery of [place] heart without angina pectoris- ICD9: 414.01, ICD10: I25.10 (primary diagnosis) Despite her multiple medical issues she continues to do well from a cardiac standpoint. She has hadno escalation in symptoms from us her last visit. Patient would be at high risk for further invasive procedures. Have been inclined to continue with conservative medical therapy. 2. Chronic diastolic congestive heart failure (HCC) - ICD9: 428.32, 428.0, ICD10: I50.32 Patient has done well with overall volume status. I discussed the results of her BNP as it relates to her heart failure. She is currently doing well with stable creatinine in the setting of minimal volume overload. I recommended continuing current diuretic therapy with 40 mg of Lasix daily with increase to twice daily as needed for weight gain greater than 4 pounds or worsening lower extremity anastacia ma. She will increase to twice daily dosing for no more than 3 days. 3. Essential hypertension - ICD9: 401.9, ICD10: I10 Well-controlled on current regimen extensive list of blood pressure medications from August were reviewed in detail during the office visit 4. Hyperlipidemia, unspecified hyperlipidemia type - ICD9: 272.4, ICD10: E78.5 Maintained on Lipitor 40 mg daily 5. PAD (peripheral artery disease) (HCC) both lower extremities. - ICD9: 443.9, ICD10: I73.9 Leonel Paniagua MD documented in this encounterOur [facility]04-02-[facility]22 Miscellaneous Notes* Telephone Encounter - Arthur Joshi Ma - 02/02/2022 9:48 AM EDT Time adjusted. Please review mychart. * Telephone Encounter - Ady Ignacio MD - 02/01/2022 5:38 PM EDT Change May appointment to 40 minutes please (memory concerns). documented in this encounterOur Lady Of Mercy [facility]04-01-2022 Procedure note* Lucy Neal RRT - 02/01/2022 1:51 PM EDT Associated Order(s): OXIMETRY WITH AMBULATION RESPIRATORY THERAPY OXIMETRY WITH AMBULATION Oximetry with Ambulation Test for This Encounter O2 Device O2 Adapter NC O2 Flow SpO2% HR Activity Ft Walked (ft) Time (min) Avg Speed (MPH) R/A 93 79 Resting R/A 87 120 Walking, usual pace 320 2.8 1.3 NC 2 95 97 Resting NC 2 92 118 Walking, usual pace 330 3 1.25 General Information Pulse Oximetry Site Total Time Spent O2 Supply Carrier Walking Assistance/Device Forehead 25 3 Wheel Walker NAME: Lucy Neal RRT PATIENT NAME: Kyle Arroyo DATE: February 01, 2022 TIME: 1:51 PM Comment: documented in this encounterOur [facility] Of Mer[facility]04-01-2022 History of Present illness Narrative* Lucy Neal RRT - 02/01/2022 1:32 PM EDT PULM FUNCTION SMARTBLOCK: Provider: Emerson Calvo MD Assisting Tech: Lucy Neal RRT Oximetry - Ambulation: 1 System: [id number] documented in this encounterOur Lady Of Mer[facility]03-29-2022 Miscellaneous Notes* Telephone Encounter - Emerson Calvo MD - 01/29/2022 12:30 PM EDT Component Ref Range & Units 1 d ago (01/28/22) 6 mo ago (07/26/21) 11 mo ago (02/13/21) 1 yr ago (01/18/21) 1 yr ago (11/15/20) NT Pro BNP <450 pg/mL 1,615 High 1,248 High 1,322 High 1,573 High 1,444 High MEDICAL DECISION MAKING: IMPRESSION: Dyspnea, orthopnea, paroxysmal nocturnal dyspnea, crackles and peripheral edema on exam, and risingNT pro BNP consistent with decompensated congestive heart failure, likely worse as Furosemide dose decreased. RECOMMEND: 1. Resume prior twice daily dose of Lasix/Furosemide. 2. Further management of decompensated congestive heart failure in face of chronic kidney disease left to the discretion of consulting Twister Tender Paper Leonel Paniagua MD and Primary Care Physician, Ady Ignacio MD. Patient and daughter also informed of this directly via [email or web address] message. Emerson Calvo MD, [facility] Res[facility] [address] [place] [id number] P: [phone] F: [phone] documented in this encounterOur Lady Of Mercy [facility]03-28-2022 History of Present illness Narrative* Cinda Granados RT(R) - 01/28/2022 9:50 AM EDT Radiology Service Progress Note PATIENT NAME: Kyle Arroyo DATE OF SERVICE: January 28, 2022 TIME: 9:45 AM PATIENT IDENTITY VERIFICATION COMPLETED USING TWO (2) IDENTIFIERS: Name and Date of confirmedby patient verbally. FALL SCREENING: Has the patient had 2 falls in the last year or 1 fall with injury or currently using an Ambulatory Assistive Device (Walker, Cane, Wheelchair, Crutches, etc.)? No PATIENT GENDER DATA: Female. status: : No status: NO. PATIENT RELEVANT IMPLANT DATA REVIEWED: Yes RADIOLOGY DEPARTMENT: General X-ray: Exam(s) Completed: Chest X-Ray PERIPHERAL IV DATA: Not applicable SIGNED BY: RT Cassia(R) January 28, 2022 9:45 AM documented in this encounterOur Lady Of Mercy Hospital03-28-2022 Instructions* Patient Instructions* Emerson Calvo MD - 01/28/2022 9:08 AM EDT MEDICAL DECISION MAKIN. COPD, mild to moderate. Dulera 1 inhalation twice daily. Spiriva once daily. Ventolin HFA inhaler, 2 inhalations as needed for relief of shortness of breath or wheezing, up to 4 times daily. Mucinex 1-2 tablets twice daily to help thin secretions. 2020 Annual Influenza vaccination already received. Covid vaccinations up-to-date. -Current chest x-ray. -Current ambulatory oximetry. 2. Diastolic cardiac dysfunction, chronic. I suspect increased shortness of breath, orthopnea, paroxysmal nocturnal dyspnea and cough productive of foamy sputum is due to decompensated chronic diastolic heart failure. -Current chest x-ray. -Current NT proBNP. -Further recommendations to follow these results. -I will share this assessment with the patient's Primary Care Physician and Twister Tender Paper. 3. Obstructive sleep apnea. Patient intolerant of PAP Rx. [facility] [place] [facility] [address] [address] P: [phone] F: [phone] documented in this encounterOur Lady Of [facility]03-28-2022 History of Present illness Narrative* Emerson Calvo MD - 01/28/2022 8:35 AM EDT [facility] [place], 01/28/2022: Name: Kyle Arroyo INTERVAL HISTORY: Since our 07/30/2021 visit in this Pulmonary clinic, the patient claims consistent compliance with maintenance inhaled daily Spiriva and twice daily Dulera. Ventolin Is the only thing that helps. Notes waking with spO2 80% on home oximeter. No need for ED evaluation or hospital admission for shortness of breath. Primary dyspnea triggers are exertion in and around the home. Coughs daily, she attributes to my esophagus, productive of white mucus, thin and bubbly. Shortness of breath, cough and wheeze are worse when supine, and frequently disrupt sleep. ROS: Has noted lower leg edema, Since the kidney doctor knocked her down to 1 Lasix daily. Problem list, PMH, PSH, FAMH, SOCH: Reviewed with patient today, and updated accordingly. Immunizations reviewed today. Allergies reviewed and updated, and medications reconciled today. Immunization History Administered Date(s) Administered COVID-19 vaccine, age 12+ yr (PFIZER-BIOLuxr - PURPLE TOP) 11/27/2020 12/25/2020 DT(PEDIATRIC) 12/02/2002 Influenza Seasonal - High Dose - Age 65+ 08/24/2015 09/17/2016 08/15/2017 09/03/2018 09/06/2019 Influenza Vaccine, Split-Non Spec 09/12/2005 09/18/2006 10/01/2007 09/16/2008 07/28/2009 08/14/2010 09/14/2011 09/12/2012 08/20/2013 Pneumococcal-13 Vac Conjugate 01/03/2015 Pneumovax 09/01/2003 Tetanus Diphtheria Booster (Age >7) Pres Free 04/05/2015 influenza, high-dose, quadrivalent vaccine (FLUZONE HIGH DOSE QUADRIVALENT) 07/13/2020 07/17/2021 PHYSICAL EXAMINATION: BP (P) 108/56 Pulse (P) 76 Resp (P) 17 Wt 62.1 kg (137 lb) SpO2 (P) 95% BMI 27.67 kg/m . spO2 88% when first measured on arrival in exam room. Gen: No acute distress. Cooperative with examination. Appearance consistent with recorded age. ENT: Sclerae clear. Nares clear. Oral hygeine/dentition good. Full upper and lower dentures. Pharynx clear. No halitosis. Resp: No stridor, accessory respiratory muscle use, supra-sternal or intercostal retractions. A-P diameter normal. Bilateral posterior lower lobe crackles. No wheezes or rubs. CV: 4 cm JVD, with HJR. Regular rythm. Heart tones normal. No carotid bruit. Radial pulses normal. Abd: Not distended. MSK: No kyphoscoliosis. Ext: Warm and well perfused. 2+ bilateral lower leg edema. No clubbing, cyanosis, sclerodactyly, Raynaud's. Skin: Color normal. Texture normal. No rash, telangiectasia, ecchymoses. Neuro: Alert, oriented to person, place and time. Answers questions promptly and clearly. Muscle strength symmetrical. No tremor. PFTs 07/20/20 08/02/19 12/07/18 07/30/18 06/12/17 FEV1(L) 1.04, 67% 1.11, 71% 0.90, 65% 1.02, 72% 0.80, 55% Component Ref Rng & Units 11/15/2020 07/26/2021 NT Pro BNP <450 pg/mL 1,444 (H) 1,248 (H) MEDICAL DECISION MAKIN. COPD, mild to moderate. Dulera 1 inhalation twice daily. Spiriva once daily. Ventolin HFA inhaler, 2 inhalations as needed for relief of shortness of breath or wheezing, up to 4 times daily. Mucinex 1-2 tablets twice daily to help thin secretions. 2020 Annual Influenza vaccination already received. Covid vaccinations up-to-date. -Current chest x-ray. -Current ambulatory oximetry. 2. Diastolic cardiac dysfunction, chronic. I suspect increased shortness of breath, orthopnea, paroxysmal nocturnal dyspnea and cough productive of foamy sputum is due to decompensated chronic diastolic heart failure. -Current chest x-ray. -Current NT proBNP. -Further recommendations to follow these results. -I will share this assessment with the patient's Primary Care Physician and Twister Tender Paper. 3. Obstructive sleep apnea. Patient intolerant of PAP Rx. I addressed the questions of the patient and her daughter Katherin, and they expressed understanding and acceptance of my answers. [facility] MD[facility] [address] [place] [address] P: [phone] F: [phone] ADDENDUM, 01/28/2022: CXR, 01/28/2022: IMPRESSION: Interval development of bilateral diffusely coarsened lung markings. Stable atelectasis or fibrosis at the lung bases. Bronchiectasis. Cardiomegaly I have personally and independently reviewed these CXR images and note cardiomegaly, with C:T ratioof 172:305. 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 Hemorrhage of gastrointestinal tract, unspecifie d 12/01/2014 09/18/2016 Abnormal mammogram, unspecified 05/10/2010 01/03/2015 Pain in limb 03/20/2010 01/03/2015 Dermatophytosis of nail 03/20/2010 09/18/20 16 Tobacco use disorder 07/27/2008 01/03/2015 Overview: Quit tobacco about age 63: about a 30 pack year (started about 1970 and quit about 1999) UA negative for blood in 07-11, 03-11 Anemia 01/20/2008 07/17/2021 Benign neoplasm of colon 08/21/2007 017 Restless legs syndrome (RLS) 08/21/2007 DM w/o Complication Type II 08/15/2005 03/01/2015 Overview: A1C 6.9% in 08-07, 6.7% in 08-09, 6% in 01-08, 6.9% in 08-10, 6.8% in 03-11, 7% in 06-11 Creat 0.9 in 06-07, 1.2 in 02-06, 1.6 in 01-07, 1.1 in 01-07, 1.1 in 04-10, 0.9 in 08-10, 0.8 in 03-11 UA negative for blood and protein in 01-07 Alb/Creat 6 in 10-09, 6 in 04-10, 16 in 03-11 [facility] 10-09: plans to do laser treatments (done on L eye in 01-08) Started Metformin 1000 mg bid in 05-10: changed to 500 mg bid for two weeks on 05-19-08 [address] per [place] in 09-10 Diverticulosis of colon (without mention of hemo rrhage) 01/03/2015 Overview: Colonoscopy 06-15-07 (sister with colon ca): left sided tics with no polyps or masses HCT 41% in 05-07 Psoriasis and similar disorder 1 documented as of this encounter (statuses as of 01/28/2022) [facility] History of Past illness Narrative* Problem Noted Date Resolved Date Nodule of lower lobe of right lung 05/04/2021 07/17/2021 Closed Colles' fracture of left radius 7 08/27/2017 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 Hemorrhage of gastrointestinal tract, unspecifie d 12/01/2014 09/18/2016 Abnormal mammogram, unspecified 05/10/2010 01/03/2015 Pain in limb 03/20/2010 01/03/2015 Dermatophytosis of nail 03/20/2010 09/18/20 16 Tobacco use disorder 07/27/2008 01/03/2015 Overview: Quit tobacco about age 63: about a 30 pack year (started about 1970 and quit about 1999) UA negative for blood in 07-11, 03-11 Anemia 01/20/2008 07/17/2021 Benign neoplasm of colon 08/21/2007 017 Restless legs syndrome (RLS) 08/21/2007 DM w/o Complication Type II 08/15/2005 03/01/2015 Overview: A1C 6.9% in 08-07, 6.7% in 08-09, 6% in 01-08, 6.9% in 08-10, 6.8% in 03-11, 7% in 06-11 Creat 0.9 in 06-07, 1.2 in 02-06, 1.6 in 01-07, 1.1 in 01-07, 1.1 in 04-10, 0.9 in 08-10, 0.8 in 03-11 UA negative for blood and protein in 01-07 Alb/Creat 6 in 10-09, 6 in 04-10, 16 in 03-11 [place] 10-09: plans to do laser treatments (done on L eye in 01-08) Started Metformin 1000 mg bid in 05-10: changed to 500 mg bid for two weeks on 05-19-08 [address] to [address] per [place] in 09-10 Diverticulosis of colon (without mention of hemo rrhage) 01/03/2015 Overview: Colonoscopy 06-15-07 (sister with colon ca): left sided tics with no polyps or masses HCT 41% in 05-07 Psoriasis and similar disorder 1 documented as of this encounter (statuses as of 01/29/2022) [facility]07-02-2021 History of Past illness Narrative* Problem Noted Date Resolved Date Nodule of lower lobe of right lung 05/04/2021 07/17/2021 Closed Colles' fracture of left radius 7 08/27/2017 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 Hemorrhage of gastrointestinal tract, unspecifie d 12/01/2014 09/18/2016 Abnormal mammogram, unspecified 05/10/2010 01/03/2015 Pain in limb 03/20/2010 01/03/2015 Dermatophytosis of nail 03/20/2010 09/18/20 16 Tobacco use disorder 07/27/2008 01/03/2015 Overview: Quit tobacco about age 63: about a 30 pack year (started about 1970 and quit about 1999) UA negative for blood in 07-11, 03-11 Anemia 01/20/2008 07/17/2021 Benign neoplasm of colon 08/21/2007 017 Restless legs syndrome (RLS) 08/21/2007 DM w/o Complication Type II 08/15/200501/2015 Overview: A1C 6.9% in 08-07, 6.7% in 08-09, 6% in 01-08, 6.9% in 08-10, 6.8% in 03-11, 7% in 06-11 Creat 0.9 in 06-07, 1.2 in 02-06, 1.6 in 01-07, 1.1 in 01-07, 1.1 in 04-10, 0.9 in 08-10, 0.8 in 03-11 UA negative for blood and protein in 01-07 Alb/Creat 6 in 10-09, 6 in 04-10, 16 in 03-11 [facility] 10-09: plans to do laser treatments (done on L eye in 01-08) Started Metformin 1000 mg bid in 05-10: changed to 500 mg bid for two weeks on 05-19-08 [address] [place] [address] per [facility] in 09-10 Diverticulosis of colon (without mention of hemo rrhage) 01/03/2015 Overview: Colonoscopy 06-15-07 (sister with colon ca): left sided tics with no polyps or masses HCT 41% in 05-07 Psoriasis and similar disorder 1 documented as of this encounter (statuses as of 01/29/2022) [facility]-02[facility]21 History of Past illness Narrative* Problem Noted Date Resolved Date Nodule of lower lobe of right lung 05/04/2021 07/17/2021 Closed Colles' fracture of left radius 7 08/27/2017 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 Hemorrhage of gastrointestinal tract, unspecifie d 12/01/2014 09/18/2016 Abnormal mammogram, unspecified 05/10/2010 01/03/2015 Pain in limb 03/20/2010 01/03/2015 Dermatophytosis of nail 03/20/2010 09/18/20 16 Tobacco use disorder 07/27/2008 01/03/2015 Overview: Quit tobacco about age 63: about a 30 pack year (started about 1970 and quit about 1999) UA negative for blood in 07-11, 03-11 Anemia 01/20/2008 07/17/2021 Benign neoplasm of colon 08/21/2007 017 Restless legs syndrome (RLS) 08/21/2007 DM w/o Complication Type II 08/15/200501/2015 Overview: A1C 6.9% in 08-07, 6.7% in 08-09, 6% in 01-08, 6.9% in 08-10, 6.8% in 03-11, 7% in 06-11 Creat 0.9 in 06-07, 1.2 in 02-06, 1.6 in 01-07, 1.1 in 01-07, 1.1 in 04-10, 0.9 in 08-10, 0.8 in 03-11 UA negative for blood and protein in 01-07 Alb/Creat 6 in 10-09, 6 in 04-10, 16 in 03-11 [facility] 10-09: plans to do laser treatments (done on L eye in 01-08) Started Metformin 1000 mg bid in 05-10: changed to 500 mg bid for two weeks on 05-19-08 then [place] [address] per [facility] in 09-10 Diverticulosis of colon (without mention of hemo rrhage) 01/03/2015 Overview: Colonoscopy 8-13-07 (sister with colon ca): left sided tics with no polyps or masses HCT 41% in 05-07 Psoriasis and similar disorder 1 documented as of this encounter (statuses as of 01/29/2022) [facility]-02[facility]21 History of Past illness Narrative* Problem Noted Date Resolved Date Nodule of lower lobe of right lung 05/04/2021 07/17/2021 Closed Colles' fracture of left radius 7 08/27/2017 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 Hemorrhage of gastrointestinal tract, unspecifie d 12/01/2014 09/18/2016 Abnormal mammogram, unspecified 05/10/2010 01/03/2015 Pain in limb 03/20/2010 01/03/2015 Dermatophytosis of nail 03/20/2010 09/18/20 16 Tobacco use disorder 07/27/2008 01/03/2015 Overview: Quit tobacco about age 63: about a 30 pack year (started about 1970 and quit about 1999) UA negative for blood in 07-11, 03-11 Anemia 01/20/2008 07/17/2021 Benign neoplasm of colon 08/21/2007 017 Restless legs syndrome (RLS) 08/21/2007 DM w/o Complication Type II 08/15/200501/2015 Overview: A1C 6.9% in 08-07, 6.7% in 08-09, 6% in 01-08, 6.9% in 08-10, 6.8% in 03-11, 7% in 06-11 Creat 0.9 in 06-07, 1.2 in 02-06, 1.6 in 01-07, 1.1 in 01-07, 1.1 in 04-10, 0.9 in 08-10, 0.8 in 03-11 UA negative for blood and protein in 01-07 Alb/Creat 6 in 10-09, 6 in 04-10, 16 in 03-11 [facility] 10-09: plans to do laser treatments (done on L eye in 01-08) Started Metformin 1000 mg bid in 05-10: changed to 500 mg bid for two weeks on 05-19-08 [address] [place] [address] per [facility] in 09-10 Diverticulosis of colon (without mention of hemo rrhage) 01/03/2015 Overview: Colonoscopy 06-15-07 (sister with colon ca): left sided tics with no polyps or masses HCT 41% in 05-07 Psoriasis and similar disorder 1 documented as of this encounter (statuses as of 02/01/2022) [facility]-02[facility]2021 History of Past illness Narrative* Problem Noted Date Resolved Date Nodule of lower lobe of right lung 05/04/2021 07/17/2021 Closed Colles' fracture of left radius 7 08/27/2017 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 Hemorrhage of gastrointestinal tract, unspecifie d 12/01/2014 09/18/2016 Abnormal mammogram, unspecified 05/10/2010 01/03/2015 Pain in limb 03/20/2010 01/03/2015 Dermatophytosis of nail 03/20/2010 09/18/20 16 Tobacco use disorder 07/27/2008 01/03/2015 Overview: Quit tobacco about age 63: about a 30 pack year (started about 1970 and quit about 1999) UA negative for blood in 07-11, 03-11 Anemia 01/20/2008 07/17/2021 Benign neoplasm of colon 08/21/2007 017 Restless legs syndrome (RLS) 08/21/2007 DM w/o Complication Type II 08/15/200501/2015 Overview: A1C 6.9% in 08-07, 6.7% in 08-09, 6% in 01-08, 6.9% in 08-10, 6.8% in 03-11, 7% in 06-11 Creat 0.9 in 06-07, 1.2 in 02-06, 1.6 in 01-07, 1.1 in 01-07, 1.1 in 04-10, 0.9 in 08-10, 0.8 in 03-11 UA negative for blood and protein in 01-07 Alb/Creat 6 in 10-09, 6 in 04-10, 16 in 03-11 [facility] 10-09: plans to do laser treatments (done on L eye in 01-08) Started Metformin 1000 mg bid in 05-10: changed to 500 mg bid for two weeks on 05-19-08 [address] per [facility] in 09-10 Diverticulosis of colon (without mention of hemo rrhage) 01/03/2015 Overview: Colonoscopy 06-15-07 (sister with colon ca): left sided tics with no polyps or masses HCT 41% in 05-07 Psoriasis and similar disorder 1 documented as of this encounter (statuses as of 02/03/2022) [facility]21 History of Past illness Narrative* Problem Noted Date Resolved Date Nodule of lower lobe of right lung 05/04/2021 07/17/2021 Closed Colles' fracture of left radius 7 08/27/2017 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 Hemorrhage of gastrointestinal tract, unspecifie d 12/01/2014 09/18/2016 Abnormal mammogram, unspecified 05/10/2010 01/03/2015 Pain in limb 03/20/2010 01/03/2015 Dermatophytosis of nail 03/20/2010 09/18/20 16 Tobacco use disorder 07/27/2008 01/03/2015 Overview: Quit tobacco about age 63: about a 30 pack year (started about 1970 and quit about 1999) UA negative for blood in 07-11, 03-11 Anemia 01/20/2008 07/17/2021 Benign neoplasm of colon 08/21/2007 017 Restless legs syndrome (RLS) 08/21/2007 DM w/o Complication Type II 08/15/2005 03/01/2015 Overview: A1C 6.9% in 08-07, 6.7% in 08-09, 6% in 01-08, 6.9% in 08-10, 6.8% in 03-11, 7% in 06-11 Creat 0.9 in 06-07, 1.2 in 02-06, 1.6 in 01-07, 1.1 in 01-07, 1.1 in 04-10, 0.9 in 08-10, 0.8 in 03-11 UA negative for blood and protein in 01-07 Alb/Creat 6 in 10-09, 6 in 04-10, 16 in 03-11 [facility] 10-09: plans to do laser treatments (done on L eye in 01-08) Started Metformin 1000 mg bid in 05-10: changed to 500 mg bid for two weeks on 05-19-08 [place] [address] per [facility] in 09-10 Diverticulosis of colon (without mention of hemo rrhage) 01/03/2015 Overview: Colonoscopy 06-15-07 (sister with colon ca): left sided tics with no polyps or masses HCT 41% in 05-07 Psoriasis and similar disorder 1 documented as of this encounter (statuses as of 02/11/2022) [facility]-02[facility]2021 History of Past illness Narrative* Problem Noted Date Resolved Date Nodule of lower lobe of right lung 05/04/2021 07/17/2021 Closed Colles' fracture of left radius 7 08/27/2017 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 Hemorrhage of gastrointestinal tract, unspecifie d 12/01/2014 09/18/2016 Abnormal mammogram, unspecified 05/10/2010 01/03/2015 Pain in limb 03/20/2010 01/03/2015 Dermatophytosis of nail 03/20/2010 09/18/20 16 Tobacco use disorder 07/27/2008 01/03/2015 Overview: Quit tobacco about age 63: about a 30 pack year (started about 1970 and quit about 1999) UA negative for blood in 07-11, 03-11 Anemia 01/20/2008 07/17/2021 Benign neoplasm of colon 08/21/2007 017 Restless legs syndrome (RLS) 08/21/2007 DM w/o Complication Type II 08/15/2005 03/01/2015 Overview: A1C 6.9% in 08-07, 6.7% in 08-09, 6% in 01-08, 6.9% in 08-10, 6.8% in 03-11, 7% in 06-11 Creat 0.9 in 06-07, 1.2 in 02-06, 1.6 in 01-07, 1.1 in 01-07, 1.1 in 04-10, 0.9 in 08-10, 0.8 in 03-11 UA negative for blood and protein in 01-07 Alb/Creat 6 in 10-09, 6 in 04-10, 16 in 03-11 [facility] 10-09: plans to do laser treatments (done on L eye in 01-08) Started Metformin 1000 mg bid in 05-10: changed to 500 mg bid for two weeks on 05-19-08 then [address] per [facility] in 09-10 Diverticulosis of colon (without mention of hemo rrhage) 01/03/2015 Overview: Colonoscopy 06-15-07 (sister with colon ca): left sided tics with no polyps or masses HCT 41% in 05-07 Psoriasis and similar disorder 1 documented as of this encounter (statuses as of 02/25/2022) [facility]21 History of Past illness Narrative* Problem Noted Date Resolved Date Nodule of lower lobe of right lung 05/04/2021 07/17/2021 Closed Colles' fracture of left radius 7 08/27/2017 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 Hemorrhage of gastrointestinal tract, unspecifie d 12/01/2014 09/18/2016 Abnormal mammogram, unspecified 05/10/2010 01/03/2015 Pain in limb 03/20/2010 01/03/2015 Dermatophytosis of nail 03/20/2010 09/18/20 16 Tobacco use disorder 07/27/2008 01/03/2015 Overview: Quit tobacco about age 63: about a 30 pack year (started about 1970 and quit about 1999) UA negative for blood in 07-11, 03-11 Anemia 01/20/2008 07/17/2021 Benign neoplasm of colon 08/21/2007 017 Restless legs syndrome (RLS) 08/21/2007 DM w/o Complication Type II 08/15/200501/2015 Overview: A1C 6.9% in 08-07, 6.7% in 08-09, 6% in 01-08, 6.9% in 08-10, 6.8% in 03-11, 7% in 06-11 Creat 0.9 in 06-07, 1.2 in 02-06, 1.6 in 01-07, 1.1 in 01-07, 1.1 in 04-10, 0.9 in 08-10, 0.8 in 03-11 UA negative for blood and protein in 01-07 Alb/Creat 6 in 10-09, 6 in 04-10, 16 in 03-11 [facility] 10-09: plans to do laser treatments (done on L eye in 01-08) Started Metformin 1000 mg bid in 05-10: changed to 500 mg bid for two weeks on 05-19-08 [address] per [facility] in 09-10 Diverticulosis of colon (without mention of hemo rrhage) 01/03/2015 Overview: Colonoscopy 06-15-07 (sister with colon ca): left sided tics with no polyps or masses HCT 41% in 05-07 Psoriasis and similar disorder 1 documented as of this encounter (statuses as of 02/27/2022) [facility]21 History of Past illness Narrative* Problem Noted Date Resolved Date Nodule of lower lobe of right lung 05/04/2021 07/17/2021 Closed Colles' fracture of left radius 7 08/27/2017 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 Hemorrhage of gastrointestinal tract, unspecifie d 12/01/2014 09/18/2016 Abnormal mammogram, unspecified 05/10/2010 01/03/2015 Pain in limb 03/20/2010 01/03/2015 Dermatophytosis of nail 03/20/2010 09/18/20 16 Tobacco use disorder 07/27/2008 01/03/2015 Overview: Quit tobacco about age 63: about a 30 pack year (started about 1970 and quit about 1999) UA negative for blood in 07-11, 03-11 Anemia 01/20/2008 07/17/2021 Benign neoplasm of colon 08/21/2007 017 Restless legs syndrome (RLS) 08/21/2007 DM w/o Complication Type II 08/15/200501/2015 Overview: A1C 6.9% in 08-07, 6.7% in 08-09, 6% in 01-08, 6.9% in 08-10, 6.8% in 03-11, 7% in 06-11 Creat 0.9 in 06-07, 1.2 in 02-06, 1.6 in 01-07, 1.1 in 01-07, 1.1 in 04-10, 0.9 in 08-10, 0.8 in 03-11 UA negative for blood and protein in 01-07 Alb/Creat 6 in 10-09, 6 in 04-10, 16 in 03-11 [facility] 10-09: plans to do laser treatments (done on L eye in 01-08) Started Metformin 1000 mg bid in 05-10: changed to 500 mg bid for two weeks on 05-19-08 [address] [place] [address] sudhir [facility] in 09-10 Diverticulosis of colon (without mention of hemo rrhage) 01/03/2015 Overview: Colonoscopy 06-15-07 (sister with colon ca): left sided tics with no polyps or masses HCT 41% in 05-07 Psoriasis and similar disorder 1 documented as of this encounter (statuses as of 03/15/2022) [facility] History of Past illness Narrative* Problem Noted Date Resolved Date Nodule of lower lobe of right lung 05/04/2021 07/17/2021 Closed Colles' fracture of left radius 7 08/27/2017 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 Hemorrhage of gastrointestinal tract, unspecifie d 12/01/2014 09/18/2016 Abnormal mammogram, unspecified 05/10/2010 01/03/2015 Pain in limb 03/20/2010 01/03/2015 Dermatophytosis of nail 03/20/2010 09/18/20 16 Tobacco use disorder 07/27/2008 01/03/2015 Overview: Quit tobacco about age 63: about a 30 pack year (started about 1970 and quit about 1999) UA negative for blood in 07-11, 03-11 Anemia 01/20/2008 07/17/2021 Benign neoplasm of colon 08/21/2007 017 Restless legs syndrome (RLS) 08/21/2007 DM w/o Complication Type II 08/15/200501/2015 Overview: A1C 6.9% in 08-07, 6.7% in 08-09, 6% in 01-08, 6.9% in 08-10, 6.8% in 03-11, 7% in 06-11 Creat 0.9 in 06-07, 1.2 in 02-06, 1.6 in 01-07, 1.1 in 01-07, 1.1 in 04-10, 0.9 in 08-10, 0.8 in 03-11 UA negative for blood and protein in 01-07 Alb/Creat 6 in 10-09, 6 in 04-10, 16 in 03-11 [facility] 10-09: plans to do laser treatments (done on L eye in 01-08) Started Metformin 1000 mg bid in 05-10: changed to 500 mg bid for two weeks on 05-19-08 [address] per [facility] in 09-10 Diverticulosis of colon (without mention of hemo rrhage) 01/03/2015 Overview: Colonoscopy 06-15-07 (sister with colon ca): left sided tics with no polyps or masses HCT 41% in 05-07 Psoriasis and similar disorder 1 documented as of this encounter (statuses as of 03/20/2022) [facility] History of Past illness Narrative* Problem Noted Date Resolved Date Nodule of lower lobe of right lung 05/04/2021 07/17/2021 Closed Colles' fracture of left radius 7 08/27/2017 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 Hemorrhage of gastrointestinal tract, unspecifie d 12/01/2014 09/18/2016 Abnormal mammogram, unspecified 05/10/2010 01/03/2015 Pain in limb 03/20/2010 01/03/2015 Dermatophytosis of nail 03/20/2010 09/18/20 16 Tobacco use disorder 07/27/2008 01/03/2015 Overview: Quit tobacco about age 63: about a 30 pack year (started about 1970 and quit about 1999) UA negative for blood in 07-11, 03-11 Anemia 01/20/2008 07/17/2021 Benign neoplasm of colon 08/21/2007 017 Restless legs syndrome (RLS) 08/21/2007 DM w/o Complication Type II 08/15/200501/2015 Overview: A1C 6.9% in 08-07, 6.7% in 08-09, 6% in 01-08, 6.9% in 08-10, 6.8% in 03-11, 7% in 06-11 Creat 0.9 in 06-07, 1.2 in 02-06, 1.6 in 01-07, 1.1 in 01-07, 1.1 in 04-10, 0.9 in 08-10, 0.8 in 03-11 UA negative for blood and protein in 01-07 Alb/Creat 6 in 10-09, 6 in 04-10, 16 in 03-11 [facility] 10-09: plans to do laser treatments (done on L eye in 01-08) Started Metformin 1000 mg bid in 05-10: changed to 500 mg bid for two weeks on 05-19-08 [address] per [facility] in 09-10 Diverticulosis of colon (without mention of hemo rrhage) 01/03/2015 Overview: Colonoscopy 06-15-07 (sister with colon ca): left sided tics with no polyps or masses HCT 41% in 05-07 Psoriasis and similar disorder 1 documented as of this encounter (statuses as of 03/29/2022) [facility] History of Past illness Narrative* Problem Noted Date Resolved Date Nodule of lower lobe of right lung 05/04/2021 07/17/2021 Closed Colles' fracture of left radius 7 08/27/2017 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 Hemorrhage of gastrointestinal tract, unspecifie d 12/01/2014 09/18/2016 Abnormal mammogram, unspecified 05/10/2010 01/03/2015 Pain in limb 03/20/2010 01/03/2015 Dermatophytosis of nail 03/20/2010 09/18/20 16 Tobacco use disorder 07/27/2008 01/03/2015 Overview: Quit tobacco about age 63: about a 30 pack year (started about 1970 and quit about 1999) UA negative for blood in 07-11, 03-11 Anemia 01/20/2008 07/17/2021 Benign neoplasm of colon 08/21/2007 017 Restless legs syndrome (RLS) 08/21/2007 DM w/o Complication Type II 08/15/2005/01/2015 Overview: A1C 6.9% in 08-07, 6.7% in 08-09, 6% in 01-08, 6.9% in 08-10, 6.8% in 03-11, 7% in 06-11 Creat 0.9 in 06-07, 1.2 in 02-06, 1.6 in 01-07, 1.1 in 01-07, 1.1 in 04-10, 0.9 in 08-10, 0.8 in 03-11 UA negative for blood and protein in 01-07 Alb/Creat 6 in 10-09, 6 in 04-10, 16 in 03-11 [facility] 10-09: plans to do laser treatments (done on L eye in 01-08) Started Metformin 1000 mg bid in 05-10: changed to 500 mg bid for two weeks on 05-19-[address] per [facility] in 09-10 Diverticulosis of colon (without mention of hemo rrhage) 01/03/2015 Overview: Colonoscopy 06-15-07 (sister with colon ca): left sided tics with no polyps or masses HCT 41% in 05-07 Psoriasis and similar disorder 1 documented as of this encounter (statuses as of 04/17/2022) [facility] History of Past illness Narrative* Problem Noted Date Resolved Date Nodule of lower lobe of right lung 05/04/2021 07/17/2021 Closed Colles' fracture of left radius 7 08/27/2017 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 Hemorrhage of gastrointestinal tract, unspecifie d 12/01/2014 09/18/2016 Abnormal mammogram, unspecified 05/10/2010 01/03/2015 Pain in limb 03/20/2010 01/03/2015 Dermatophytosis of nail 03/20/2010 09/18/20 16 Tobacco use disorder 07/27/2008 01/03/2015 Overview: Quit tobacco about age 63: about a 30 pack year (started about 1970 and quit about 1999) UA negative for blood in 07-11, 03-11 Anemia 01/20/2008 07/17/2021 Benign neoplasm of colon 08/21/2007 017 Restless legs syndrome (RLS) 08/21/2007 DM w/o Complication Type II 08/15/200501/2015 Overview: A1C 6.9% in 08-07, 6.7% in 08-09, 6% in 01-08, 6.9% in 08-10, 6.8% in 03-11, 7% in 06-11 Creat 0.9 in 06-07, 1.2 in 02-06, 1.6 in 01-07, 1.1 in 01-07, 1.1 in 04-10, 0.9 in 08-10, 0.8 in 03-11 UA negative for blood and protein in 01-07 Alb/Creat 6 in 10-09, 6 in 04-10, 16 in 03-11 [facility] 10-09: plans to do laser treatments (done on L eye in 01-08) Started Metformin 1000 mg bid in 05-10: changed to 500 mg bid for two weeks on 05-19-08 [address] per [facility] in 09-10 Diverticulosis of colon (without mention of hemo rrhage) 01/03/2015 Overview: Colonoscopy 06-15-07 (sister with colon ca): left sided tics with no polyps or masses HCT 41% in 05-07 Psoriasis and similar disorder 1 documented as of this encounter (statuses as of 04/23/2022) [facility] History of Past illness Narrative* Problem Noted Date Resolved Date Nodule of lower lobe of right lung 05/04/2021 07/17/2021 Closed Colles' fracture of left radius 7 08/27/2017 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 Hemorrhage of gastrointestinal tract, unspecifie d 12/01/2014 09/18/2016 Abnormal mammogram, unspecified 05/10/2010 01/03/2015 Pain in limb 03/20/2010 01/03/2015 Dermatophytosis of nail 03/20/2010 09/18/20 16 Tobacco use disorder 07/27/2008 01/03/2015 Overview: Quit tobacco about age 63: about a 30 pack year (started about 1970 and quit about 1999) UA negative for blood in 07-11, 03-11 Anemia 01/20/2008 07/17/2021 Benign neoplasm of colon 08/21/2007 017 Restless legs syndrome (RLS) 08/21/2007 DM w/o Complication Type II 08/15/200501/2015 Overview: A1C 6.9% in 08-07, 6.7% in 08-09, 6% in 01-08, 6.9% in 08-10, 6.8% in 03-11, 7% in 06-11 Creat 0.9 in 06-07, 1.2 in 02-06, 1.6 in 01-07, 1.1 in 01-07, 1.1 in 04-10, 0.9 in 08-10, 0.8 in 03-11 UA negative for blood and protein in 01-07 Alb/Creat 6 in 10-09, 6 in 04-10, 16 in 03-11 [facility] 10-09: plans to do laser treatments (done on L eye in 01-08) Started Metformin 1000 mg bid in 05-10: changed to 500 mg bid for two weeks on 05-19-[address] per [facility] in 09-10 Diverticulosis of colon (without mention of hemo rrhage) 01/03/2015 Overview: Colonoscopy 06-15-07 (sister with colon ca): left sided tics with no polyps or masses HCT 41% in 05-07 Psoriasis and similar disorder 1 documented as of this encounter (statuses as of 05/29/2022) [facility] History of Past illness Narrative* Problem Noted Date Resolved Date Nodule of lower lobe of right lung 05/04/2021 07/17/2021 Closed Colles' fracture of left radius 7 08/27/2017 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 Hemorrhage of gastrointestinal tract, unspecifie d 12/01/2014 09/18/2016 Abnormal mammogram, unspecified 05/10/2010 01/03/2015 Pain in limb 03/20/2010 01/03/2015 Dermatophytosis of nail 03/20/2010 09/18/20 16 Tobacco use disorder 07/27/2008 01/03/2015 Overview: Quit tobacco about age 63: about a 30 pack year (started about 1970 and quit about 1999) UA negative for blood in 07-11, 03-11 Anemia 01/20/2008 07/17/2021 Benign neoplasm of colon 08/21/2007 017 Restless legs syndrome (RLS) 08/21/2007 DM w/o Complication Type II 08/15/200501/2015 Overview: A1C 6.9% in -, 6.7% in 08-09, 6% in 01-08, 6.9% in 08-10, 6.8% in 03-11, 7% in 06-11 Creat 0.9 in -, 1.2 in -, 1.6 in 01-07, 1.1 in 01-07, 1.1 in 04-10, 0.9 in 08-10, 0.8 in 03-11 UA negative for blood and protein in 01-07 Alb/Creat 6 in 10-09, 6 in 04-10, 16 in 03-11 [facility] 10-09: plans to do laser treatments (done on L eye in 01-08) Started Metformin 1000 mg bid in 05-10: changed to 500 mg bid for two weeks on 05-19-[address] per [facility] in 09-10 Diverticulosis of colon (without mention of hemo rrhage) 01/03/2015 Overview: Colonoscopy 06-15-07 (sister with colon ca): left sided tics with no polyps or masses HCT 41% in 05-07 Psoriasis and similar disorder 1 documented as of this encounter (statuses as of 05/30/2022) [facility] History of Past illness Narrative* Problem Noted Date Resolved Date Nodule of lower lobe of right lung 05/04/2021 07/17/2021 Closed Colles' fracture of left radius 7 08/27/2017 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 Hemorrhage of gastrointestinal tract, unspecifie d 12/01/2014 09/18/2016 Abnormal mammogram, unspecified 05/10/2010 01/03/2015 Pain in limb 03/20/2010 01/03/2015 Dermatophytosis of nail 03/20/2010 09/18/20 16 Tobacco use disorder 07/27/2008 01/03/2015 Overview: Quit tobacco about age 63: about a 30 pack year (started about 1970 and quit about 1999) UA negative for blood in 07-11, 03-11 Anemia 01/20/2008 07/17/2021 Benign neoplasm of colon 08/21/2007 017 Restless legs syndrome (RLS) 08/21/2007 DM w/o Complication Type II 08/15/2005 03/01/2015 Overview: A1C 6.9% in 08-07, 6.7% in 08-09, 6% in 01-08, 6.9% in 08-10, 6.8% in 03-11, 7% in 06-11 Creat 0.9 in 06-07, 1.2 in 02-06, 1.6 in 01-07, 1.1 in 01-07, 1.1 in 04-10, 0.9 in 08-10, 0.8 in 03-11 UA negative for blood and protein in 01-07 Alb/Creat 6 in 10-09, 6 in 04-10, 16 in 03-11 [facility] 10-09: plans to do laser treatments (done on L eye in 01-08) Started Metformin 1000 mg bid in 05-10: changed to 500 mg bid for two weeks on 05-19-08 [address] [place] [address] per [facility] in 09-10 Diverticulosis of colon (without mention of hemo rrhage) 01/03/2015 Overview: Colonoscopy 06-15-07 (sister with colon ca): left sided tics with no polyps or masses HCT 41% in 05-07 Psoriasis and similar disorder 1 documented as of this encounter (statuses as of 05/30/2022) [facility]-02-2021 History of Past illness Narrative* Problem Noted Date Resolved Date Nodule of lower lobe of right lung 05/04/2021 07/17/2021 Closed Colles' fracture of left radius 7 08/27/2017 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 Hemorrhage of gastrointestinal tract, unspecifie d 12/01/2014 09/18/2016 Abnormal mammogram, unspecified 05/10/2010 01/03/2015 Pain in limb 03/20/2010 01/03/2015 Dermatophytosis of nail 03/20/2010 09/18/20 16 Tobacco use disorder 07/27/2008 01/03/2015 Overview: Quit tobacco about age 63: about a 30 pack year (started about 1970 and quit about 1999) UA negative for blood in 07-11, 03-11 Anemia 01/20/2008 07/17/2021 Benign neoplasm of colon 08/21/2007 017 Restless legs syndrome (RLS) 08/21/2007 DM w/o Complication Type II 08/15/2005 03/01/2015 Overview: A1C 6.9% in 08-07, 6.7% in 08-09, 6% in 01-08, 6.9% in 08-10, 6.8% in 03-11, 7% in 06-11 Creat 0.9 in 06-07, 1.2 in 02-06, 1.6 in 01-07, 1.1 in 01-07, 1.1 in 04-10, 0.9 in 08-10, 0.8 in 03-11 UA negative for blood and protein in 01-07 Alb/Creat 6 in 10-09, 6 in 04-10, 16 in 03-11 [facility] 10-09: plans to do laser treatments (done on L eye in 01-08) Started Metformin 1000 mg bid in 05-10: changed to 500 mg bid for two weeks on 05-19-08 [address] [place] [address] per [facility] in 09-10 Diverticulosis of colon (without mention of hemo rrhage) 01/03/2015 Overview: Colonoscopy 06-15-07 (sister with colon ca): left sided tics with no polyps or masses HCT 41% in 05-07 Psoriasis and similar disorder 1 documented as of this encounter (statuses as of 06/24/2022) [facility]21 History of Past illness Narrative* Problem Noted Date Resolved Date Nodule of lower lobe of right lung 05/04/2021 07/17/2021 Closed Colles' fracture of left radius 7 08/27/2017 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 Hemorrhage of gastrointestinal tract, unspecifie d 12/01/2014 09/18/2016 Abnormal mammogram, unspecified 05/10/2010 01/03/2015 Pain in limb 03/20/2010 01/03/2015 Dermatophytosis of nail 03/20/2010 09/18/20 16 Tobacco use disorder 07/27/2008 01/03/2015 Overview: Quit tobacco about age 63: about a 30 pack year (started about 1970 and quit about 2000) UA negative for blood in 07-11, 03-11 Anemia 01/20/2008 07/17/2021 Benign neoplasm of colon 08/21/2007 017 Restless legs syndrome (RLS) 08/21/2007 DM w/o Complication Type II 08/15/200501/2015 Overview: A1C 6.9% in 08-07, 6.7% in 08-09, 6% in 01-08, 6.9% in 08-10, 6.8% in 03-11, 7% in 06-11 Creat 0.9 in 06-07, 1.2 in 02-06, 1.6 in 01-07, 1.1 in 01-07, 1.1 in 04-10, 0.9 in 08-10, 0.8 in 03-11 UA negative for blood and protein in 01-07 Alb/Creat 6 in 10-09, 6 in 04-10, 16 in 03-11 [facility] 10-09: plans to do laser treatments (done on L eye in 01-08) Started Metformin 1000 mg bid in 05-10: changed to 500 mg bid for two weeks on 05-19-08 [address] [place] [address] per [facility] in 09-10 Diverticulosis of colon (without mention of hemo rrhage) 01/03/2015 Overview: Colonoscopy 06-15-07 (sister with colon ca): left sided tics with no polyps or masses HCT 41% in 05-07 Psoriasis and similar disorder 1 documented as of this encounter (statuses as of 06/24/2022) [facility]21 History of Past illness Narrative* Problem Noted Date Resolved Date Nodule of lower lobe of right lung 05/04/2021 07/17/2021 Closed Colles' fracture of left radius 7 08/27/2017 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 Hemorrhage of gastrointestinal tract, unspecifie d 12/01/2014 09/18/2016 Abnormal mammogram, unspecified 05/10/2010 01/03/2015 Pain in limb 03/20/2010 01/03/2015 Dermatophytosis of nail 03/20/2010 09/18/20 16 Tobacco use disorder 07/27/2008 01/03/2015 Overview: Quit tobacco about age 63: about a 30 pack year (started about 1970 and quit about 1999) UA negative for blood in 07-11, 03-11 Anemia 01/20/2008 07/17/2021 Benign neoplasm of colon 08/21/2007 017 Restless legs syndrome (RLS) 08/21/2007 DM w/o Complication Type II 08/15/2005 0301/2015 Overview: A1C 6.9% in 08-07, 6.7% in 08-09, 6% in 01-08, 6.9% in 08-10, 6.8% in 03-11, 7% in 06-11 Creat 0.9 in 06-07, 1.2 in 02-06, 1.6 in 01-07, 1.1 in 01-07, 1.1 in 04-10, 0.9 in 08-10, 0.8 in 03-11 UA negative for blood and protein in 01-07 Alb/Creat 6 in 10-09, 6 in 04-10, 16 in 03-11 [facility] 10-09: plans to do laser treatments (done on L eye in 01-08) Started Metformin 1000 mg bid in 05-10: changed to 500 mg bid for two weeks on 05-19-08 [address] per [facility] in 09-10 Diverticulosis of colon (without mention of hemo rrhage) 01/03/2015 Overview: Colonoscopy 8-13-07 (sister with colon ca): left sided tics with no polyps or masses HCT 41% in 7-05 Psoriasis and similar disorder 1 documented as of this encounter (statuses as of 06/25/2022) [facility]21 History of Past illness Narrative* Problem Noted Date Resolved Date Nodule of lower lobe of right lung 05/04/2021 07/17/2021 Closed Colles' fracture of left radius 7 08/27/2017 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 Hemorrhage of gastrointestinal tract, unspecifie d 12/01/2014 09/18/2016 Abnormal mammogram, unspecified 05/10/2010 01/03/2015 Pain in limb 03/20/2010 01/03/2015 Dermatophytosis of nail 03/20/2010 09/18/20 16 Tobacco use disorder 07/27/2008 01/03/2015 Overview: Quit tobacco about age 63: about a 30 pack year (started about 1970 and quit about 1999) UA negative for blood in 07-11, 03-11 Anemia 01/20/2008 07/17/2021 Benign neoplasm of colon 08/21/2007 017 Restless legs syndrome (RLS) 08/21/2007 DM w/o Complication Type II 08/15/200501/2015 Overview: A1C 6.9% in 08-07, 6.7% in 08-09, 6% in 01-08, 6.9% in 08-10, 6.8% in 03-11, 7% in 06-11 Creat 0.9 in 06-07, 1.2 in 02-06, 1.6 in 01-07, 1.1 in 01-07, 1.1 in 04-10, 0.9 in 08-10, 0.8 in 03-11 UA negative for blood and protein in 01-07 Alb/Creat 6 in 10-09, 6 in 04-10, 16 in 03-11 [facility] 10-09: plans to do laser treatments (done on L eye in 01-08) Started Metformin 1000 mg bid in 05-10: changed to 500 mg bid for two weeks on 05-19-08 then [place] [address] per [facility] in 09-10 Diverticulosis of colon (without mention of hemo rrhage) 01/03/2015 Overview: Colonoscopy 06-15-07 (sister with colon ca): left sided tics with no polyps or masses HCT 41% in 05-07 Psoriasis and similar disorder 1 documented as of this encounter (statuses as of 07/17/2022) [facility] History of Past illness Narrative* Problem Noted Date Resolved Date Nodule of lower lobe of right lung 05/04/2021 07/17/2021 Closed Colles' fracture of left radius 7 08/27/2017 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 Hemorrhage of gastrointestinal tract, unspecifie d 12/01/2014 09/18/2016 Abnormal mammogram, unspecified 05/10/2010 01/03/2015 Pain in limb 03/20/2010 01/03/2015 Dermatophytosis of nail 03/20/2010 09/18/20 16 Tobacco use disorder 07/27/2008 01/03/2015 Overview: Quit tobacco about age 63: about a 30 pack year (started about 1970 and quit about 1999) UA negative for blood in 07-11, 03-11 Anemia 01/20/2008 07/17/2021 Benign neoplasm of colon 08/21/2007 017 Restless legs syndrome (RLS) 08/21/2007 DM w/o Complication Type II 08/15/200501/2015 Overview: A1C 6.9% in 08-07, 6.7% in 08-09, 6% in 01-08, 6.9% in 08-10, 6.8% in 03-11, 7% in 06-11 Creat 0.9 in -, 1.2 in 02-06, 1.6 in 01-07, 1.1 in 01-07, 1.1 in 04-10, 0.9 in 08-10, 0.8 in 03-11 UA negative for blood and protein in 01-07 Alb/Creat 6 in 10-09, 6 in 04-10, 16 in 03-11 [facility] 10-09: plans to do laser treatments (done on L eye in 01-08) Started Metformin 1000 mg bid in 05-10: changed to 500 mg bid for two weeks on 05-19-08 then [address] per [facility] in 09-10 Diverticulosis of colon (without mention of hemo rrhage) 01/03/2015 Overview: Colonoscopy 06-15-07 (sister with colon ca): left sided tics with no polyps or masses HCT 41% in 05-07 Psoriasis and similar disorder 1 documented as of this encounter (statuses as of 07/18/2022) [facility] History of Past illness Narrative* Problem Noted Date Resolved Date Nodule of lower lobe of right lung 05/04/2021 07/17/2021 Closed Colles' fracture of left radius 7 08/27/2017 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 Hemorrhage of gastrointestinal tract, unspecifie d 12/01/2014 09/18/2016 Abnormal mammogram, unspecified 05/10/2010 01/03/2015 Pain in limb 03/20/2010 01/03/2015 Dermatophytosis of nail 03/20/2010 09/18/20 16 Tobacco use disorder 07/27/2008 01/03/2015 Overview: Quit tobacco about age 63: about a 30 pack year (started about 1970 and quit about 1999) UA negative for blood in 07-11, 03-11 Anemia 01/20/2008 07/17/2021 Benign neoplasm of colon 08/21/2007 017 Restless legs syndrome (RLS) 08/21/2007 DM w/o Complication Type II 08/15/2005 03/0 01/2015 Overview: A1C 6.9% in 08-07, 6.7% in 08-09, 6% in 01-08, 6.9% in 08-10, 6.8% in 03-11, 7% in 06-11 Creat 0.9 in 06-07, 1.2 in 02-06, 1.6 in 01-07, 1.1 in 01-07, 1.1 in 04-10, 0.9 in 08-10, 0.8 in 03-11 UA negative for blood and protein in 01-07 Alb/Creat 6 in 10-09, 6 in 04-10, 16 in 03-11 [facility] 10-09: plans to do laser treatments (done on L eye in 01-08) Started Metformin 1000 mg bid in 05-10: changed to 500 mg bid for two weeks on 05-19-08 [address] [place] [address] per [facility] in 09-10 Diverticulosis of colon (without mention of hemo rrhage) 01/03/2015 Overview: Colonoscopy 06-15-07 (sister with colon ca): left sided tics with no polyps or masses HCT 41% in 05-07 Psoriasis and similar disorder 1 documented as of this encounter (statuses as of 07/19/2022) [facility] History of Past illness Narrative* Problem Noted Date Resolved Date Nodule of lower lobe of right lung 05/04/2021 07/17/2021 Closed Colles' fracture of left radius 7 08/27/2017 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 Hemorrhage of gastrointestinal tract, unspecifie d 12/01/2014 09/18/2016 Abnormal mammogram, unspecified 05/10/2010 01/03/2015 Pain in limb 03/20/2010 01/03/2015 Dermatophytosis of nail 03/20/2010 09/18/20 16 Tobacco use disorder 07/27/2008 01/03/2015 Overview: Quit tobacco about age 63: about a 30 pack year (started about 1969 and quit about 1999) UA negative for blood in 07-11, 03-11 Anemia 01/20/2008 07/17/2021 Benign neoplasm of colon 08/21/2007 017 Restless legs syndrome (RLS) 08/21/2007 DM w/o Complication Type II 08/15/200501/2015 Overview: A1C 6.9% in 08-07, 6.7% in 08-09, 6% in 01-08, 6.9% in 08-10, 6.8% in 03-11, 7% in 06-11 Creat 0.9 in 06-07, 1.2 in 02-06, 1.6 in 01-07, 1.1 in 01-07, 1.1 in 04-10, 0.9 in 08-10, 0.8 in 03-11 UA negative for blood and protein in 01-07 Alb/Creat 6 in 10-09, 6 in 04-10, 16 in 03-11 [facility] 10-09: plans to do laser treatments (done on L eye in 01-08) Started Metformin 1000 mg bid in 05-10: changed to 500 mg bid for two weeks on 05-19-08 [address] [place] [address] per [facility] in 09-10 Diverticulosis of colon (without mention of hemo rrhage) 01/03/2015 Overview: Colonoscopy 06-15-07 (sister with colon ca): left sided tics with no polyps or masses HCT 41% in 05-07 Psoriasis and similar disorder 1 documented as of this encounter (statuses as of 08/09/2022) [facility] History of Past illness Narrative* Problem Noted Date Resolved Date Nodule of lower lobe of right lung 05/04/2021 07/17/2021 Closed Colles' fracture of left radius 7 08/27/2017 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 Hemorrhage of gastrointestinal tract, unspecifie d 12/01/2014 09/18/2016 Abnormal mammogram, unspecified 05/10/2010 01/03/2015 Pain in limb 03/20/2010 01/03/2015 Dermatophytosis of nail 03/20/2010 09/18/20 16 Tobacco use disorder 07/27/2008 01/03/2015 Overview: Quit tobacco about age 63: about a 30 pack year (started about 1970 and quit about 1999) UA negative for blood in 07-11, 03-11 Anemia 01/20/2008 07/17/2021 Benign neoplasm of colon 08/21/2007 017 Restless legs syndrome (RLS) 08/21/2007 DM w/o Complication Type II 08/15/200501/2015 Overview: A1C 6.9% in 08-07, 6.7% in 08-09, 6% in 01-08, 6.9% in 08-10, 6.8% in 03-11, 7% in 06-11 Creat 0.9 in 06-07, 1.2 in 02-06, 1.6 in 01-07, 1.1 in 01-07, 1.1 in 04-10, 0.9 in 08-10, 0.8 in 03-11 UA negative for blood and protein in 01-07 Alb/Creat 6 in 10-09, 6 in 04-10, 16 in 03-11 [facility] 10-09: plans to do laser treatments (done on L eye in 01-08) Started Metformin 1000 mg bid in 05-10: changed to 500 mg bid for two weeks on 05-19-08 [address] [place] [address] per [facility] in 09-10 Diverticulosis of colon (without mention of hemo rrhage) 01/03/2015 Overview: Colonoscopy 06-15-07 (sister with colon ca): left sided tics with no polyps or masses HCT 41% in 05-07 Psoriasis and similar disorder 1 documented as of this encounter (statuses as of 08/13/2022) [facility] History of Past illness Narrative* Problem Noted Date Resolved Date Nodule of lower lobe of right lung 05/04/2021 07/17/2021 Closed Colles' fracture of left radius 7 08/27/2017 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 Hemorrhage of gastrointestinal tract, unspecifie d 12/01/2014 09/18/2016 Abnormal mammogram, unspecified 05/10/2010 01/03/2015 Pain in limb 03/20/2010 01/03/2015 Dermatophytosis of nail 03/20/2010 09/18/20 16 Tobacco use disorder 07/27/2008 01/03/2015 Overview: Quit tobacco about age 63: about a 30 pack year (started about 1970 and quit about 1999) UA negative for blood in 07-11, 03-11 Anemia 01/20/2008 07/17/2021 Benign neoplasm of colon 08/21/2007 017 Restless legs syndrome (RLS) 08/21/2007 DM w/o Complication Type II 08/15/200501/2015 Overview: A1C 6.9% in 08-07, 6.7% in 08-09, 6% in 01-08, 6.9% in 08-10, 6.8% in 03-11, 7% in 06-11 Creat 0.9 in 06-07, 1.2 in 02-06, 1.6 in 01-07, 1.1 in 01-07, 1.1 in 04-10, 0.9 in 08-10, 0.8 in 03-11 UA negative for blood and protein in 01-07 Alb/Creat 6 in 10-09, 6 in 04-10, 16 in 03-11 [facility] 10-09: plans to do laser treatments (done on L eye in 01-08) Started Metformin 1000 mg bid in 05-10: changed to 500 mg bid for two weeks on 05-19-08 [address] [place] [address] sudhir [facility] in 09-10 Diverticulosis of colon (without mention of hemo rrhage) 01/03/2015 Overview: Colonoscopy 06-15-07 (sister with colon ca): left sided tics with no polyps or masses HCT 41% in 05-07 Psoriasis and similar disorder 1 documented as of this encounter (statuses as of 08/19/2022) [facility] History of Past illness Narrative* Problem Noted Date Resolved Date Nodule of lower lobe of right lung 05/04/2021 07/17/2021 Closed Colles' fracture of left radius 7 08/27/2017 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 Hemorrhage of gastrointestinal tract, unspecifie d 12/01/2014 09/18/2016 Abnormal mammogram, unspecified 05/10/2010 01/03/2015 Pain in limb 03/20/2010 01/03/2015 Dermatophytosis of nail 03/20/2010 09/18/20 16 Tobacco use disorder 07/27/2008 01/03/2015 Overview: Quit tobacco about age 63: about a 30 pack year (started about 1970 and quit about 1999) UA negative for blood in 07-11, 03-11 Anemia 01/20/2008 07/17/2021 Benign neoplasm of colon 08/21/2007 017 Restless legs syndrome (RLS) 08/21/2007 DM w/o Complication Type II 08/15/200501/2015 Overview: A1C 6.9% in 08-07, 6.7% in 08-09, 6% in 01-08, 6.9% in 08-10, 6.8% in 03-11, 7% in 06-11 Creat 0.9 in 06-07, 1.2 in 02-06, 1.6 in 01-07, 1.1 in 01-07, 1.1 in 04-10, 0.9 in 08-10, 0.8 in 03-11 UA negative for blood and protein in 01-07 Alb/Creat 6 in 10-09, 6 in 04-10, 16 in 03-11 [facility] 10-09: plans to do laser treatments (done on L eye in 01-08) Started Metformin 1000 mg bid in 05-10: changed to 500 mg bid for two weeks on 05-19-08 [place] [address] per [facility] in 09-10 Diverticulosis of colon (without mention of hemo rrhage) 01/03/2015 Overview: Colonoscopy 06-15-07 (sister with colon ca): left sided tics with no polyps or masses HCT 41% in 05-07 Psoriasis and similar disorder 1 documented as of this encounter (statuses as of 08/30/2022) [facility] History of Past illness Narrative* Problem Noted Date Resolved Date Nodule of lower lobe of right lung 05/04/2021 07/17/2021 Closed Colles' fracture of left radius 7 08/27/2017 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 Hemorrhage of gastrointestinal tract, unspecifie d 12/01/2014 09/18/2016 Abnormal mammogram, unspecified 05/10/2010 01/03/2015 Pain in limb 03/20/2010 01/03/2015 Dermatophytosis of nail 03/20/2010 09/18/20 16 Tobacco use disorder 07/27/2008 01/03/2015 Overview: Quit tobacco about age 63: about a 30 pack year (started about 1970 and quit about 1999) UA negative for blood in 07-11, 03-11 Anemia 01/20/2008 07/17/2021 Benign neoplasm of colon 08/21/2007 017 Restless legs syndrome (RLS) 08/21/2007 DM w/o Complication Type II 08/15/2005/01/2015 Overview: A1C 6.9% in 08-07, 6.7% in 08-09, 6% in 01-08, 6.9% in 08-10, 6.8% in 03-11, 7% in 06-11 Creat 0.9 in 06-07, 1.2 in 02-06, 1.6 in 01-07, 1.1 in 01-07, 1.1 in 04-10, 0.9 in 08-10, 0.8 in 03-11 UA negative for blood and protein in 01-07 Alb/Creat 6 in 10-09, 6 in 04-10, 16 in 03-11 [facility] 10-09: plans to do laser treatments (done on L eye in 01-08) Started Metformin 1000 mg bid in 05-10: changed to 500 mg bid for two weeks on 05-19-08 [address] per [facility] in 09-10 Diverticulosis of colon (without mention of hemo rrhage) 01/03/2015 Overview: Colonoscopy 06-15-07 (sister with colon ca): left sided tics with no polyps or masses HCT 41% in 05-07 Psoriasis and similar disorder 1 documented as of this encounter (statuses as of 08/30/2022) [facility] History of Past illness Narrative* Problem Noted Date Resolved Date Nodule of lower lobe of right lung 05/04/2021 07/17/2021 Closed Colles' fracture of left radius 7 08/27/2017 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 Hemorrhage of gastrointestinal tract, unspecifie d 12/01/2014 09/18/2016 Abnormal mammogram, unspecified 05/10/2010 01/03/2015 Pain in limb 03/20/2010 01/03/2015 Dermatophytosis of nail 03/20/2010 09/18/20 16 Tobacco use disorder 07/27/2008 01/03/2015 Overview: Quit tobacco about age 63: about a 30 pack year (started about 1970 and quit about 1999) UA negative for blood in 07-11, 03-11 Anemia 01/20/2008 07/17/2021 Benign neoplasm of colon 08/21/2007 017 Restless legs syndrome (RLS) 08/21/2007 DM w/o Complication Type II 08/15/2005 03/0 01/2015 Overview: A1C 6.9% in 08-07, 6.7% in 08-09, 6% in 01-08, 6.9% in 08-10, 6.8% in 03-11, 7% in 06-11 Creat 0.9 in 06-07, 1.2 in 02-06, 1.6 in 01-07, 1.1 in 01-07, 1.1 in 04-10, 0.9 in 08-10, 0.8 in 03-11 UA negative for blood and protein in 01-07 Alb/Creat 6 in 10-09, 6 in 04-10, 16 in 03-11 [facility] 10-09: plans to do laser treatments (done on L eye in 01-08) Started Metformin 1000 mg bid in 05-10: changed to 500 mg bid for two weeks on 05-19-08 [address] per [facility] in 09-10 Diverticulosis of colon (without mention of hemo rrhage) 01/03/2015 Overview: Colonoscopy 06-15-07 (sister with colon ca): left sided tics with no polyps or masses HCT 41% in 05-07 Psoriasis and similar disorder 1 documented as of this encounter (statuses as of 08/30/2022) [facility] History of Past illness Narrative* Problem Noted Date Resolved Date Nodule of lower lobe of right lung 05/04/2021 07/17/2021 Closed Colles' fracture of left radius 7 08/27/2017 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 Hemorrhage of gastrointestinal tract, unspecifie d 12/01/2014 09/18/2016 Abnormal mammogram, unspecified 05/10/2010 01/03/2015 Pain in limb 03/20/2010 01/03/2015 Dermatophytosis of nail 03/20/2010 09/18/20 16 Tobacco use disorder 07/27/2008 01/03/2015 Overview: Quit tobacco about age 63: about a 30 pack year (started about 1970 and quit about 1999) UA negative for blood in 07-11, 03-11 Anemia 01/20/2008 07/17/2021 Benign neoplasm of colon 08/21/2007 017 Restless legs syndrome (RLS) 08/21/2007 DM w/o Complication Type II 08/15/200501/2015 Overview: A1C 6.9% in 08-07, 6.7% in 08-09, 6% in 01-08, 6.9% in 08-10, 6.8% in 03-11, 7% in 06-11 Creat 0.9 in 06-07, 1.2 in 02-06, 1.6 in 01-07, 1.1 in 01-07, 1.1 in 04-10, 0.9 in 08-10, 0.8 in 03-11 UA negative for blood and protein in 01-07 Alb/Creat 6 in 10-09, 6 in 04-10, 16 in 03-11 [facility] 10-09: plans to do laser treatments (done on L eye in 01-08) Started Metformin 1000 mg bid in 05-10: changed to 500 mg bid for two weeks on 05-19-[address] per [facility] in 09-10 Diverticulosis of colon (without mention of hemo rrhage) 01/03/2015 Overview: Colonoscopy 06-15-07 (sister with colon ca): left sided tics with no polyps or masses HCT 41% in 05-07 Psoriasis and similar disorder 1 documented as of this encounter (statuses as of 10/14/2022) [facility] History of Past illness Narrative* Problem Noted Date Resolved Date Nodule of lower lobe of right lung 05/04/2021 07/17/2021 Closed Colles' fracture of left radius 7 08/27/2017 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 Hemorrhage of gastrointestinal tract, unspecifie d 12/01/2014 09/18/2016 Abnormal mammogram, unspecified 05/10/2010 01/03/2015 Pain in limb 03/20/2010 01/03/2015 Dermatophytosis of nail 03/20/2010 09/18/20 16 Tobacco use disorder 07/27/2008 01/03/2015 Overview: Quit tobacco about age 63: about a 30 pack year (started about 1970 and quit about 1999) UA negative for blood in 07-11, 03-11 Anemia 01/20/2008 07/17/2021 Benign neoplasm of colon 08/21/2007 017 Restless legs syndrome (RLS) 08/21/2007 DM w/o Complication Type II 08/15/200501/2015 Overview: A1C 6.9% in 08-07, 6.7% in 08-09, 6% in 01-08, 6.9% in 08-10, 6.8% in 03-11, 7% in 06-11 Creat 0.9 in 06-07, 1.2 in 02-06, 1.6 in 01-07, 1.1 in 01-07, 1.1 in 04-10, 0.9 in 08-10, 0.8 in 03-11 UA negative for blood and protein in 01-07 Alb/Creat 6 in 10-09, 6 in 04-10, 16 in 03-11 [facility] 10-09: plans to do laser treatments (done on L eye in 01-08) Started Metformin 1000 mg bid in 05-10: changed to 500 mg bid for two weeks on 05-19-08 [place] [address] per [facility] in 09-10 Diverticulosis of colon (without mention of hemo rrhage) 01/03/2015 Overview: Colonoscopy 06-15-07 (sister with colon ca): left sided tics with no polyps or masses HCT 41% in 05-07 Psoriasis and similar disorder 1 documented as of this encounter (statuses as of 11/03/2022) [facility]-02[facility]21 History of Past illness Narrative* Problem Noted Date Resolved Date Nodule of lower lobe of right lung 05/04/2021 07/17/2021 Closed Colles' fracture of left radius 7 08/27/2017 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 Hemorrhage of gastrointestinal tract, unspecifie d 12/01/2014 09/18/2016 Abnormal mammogram, unspecified 05/10/2010 01/03/2015 Pain in limb 03/20/2010 01/03/2015 Dermatophytosis of nail 03/20/2010 09/18/20 16 Tobacco use disorder 07/27/2008 01/03/2015 Overview: Quit tobacco about age 63: about a 30 pack year (started about 1970 and quit about 1999) UA negative for blood in 07-11, 03-11 Anemia 01/20/2008 07/17/2021 Benign neoplasm of colon 08/21/2007 017 Restless legs syndrome (RLS) 08/21/2007 DM w/o Complication Type II 08/15/200501/2015 Overview: A1C 6.9% in 08-07, 6.7% in 08-09, 6% in 01-08, 6.9% in 08-10, 6.8% in 03-11, 7% in 06-11 Creat 0.9 in 06-07, 1.2 in 02-06, 1.6 in 01-07, 1.1 in 01-07, 1.1 in 04-10, 0.9 in 08-10, 0.8 in 03-11 UA negative for blood and protein in 3-07 Alb/Creat 6 in 10-09, 6 in 04-10, 16 in 03-11 [facility] 10-09: plans to do laser treatments (done on L eye in 01-08) Started Metformin 1000 mg bid in 05-10: changed to 500 mg bid for two weeks on 05-19-08 [address] per [facility] in 09-10 Diverticulosis of colon (without mention of hemo rrhage) 01/03/2015 Overview: Colonoscopy 06-15-07 (sister with colon ca): left sided tics with no polyps or masses HCT 41% in 05-07 Psoriasis and similar disorder 1 documented as of this encounter (statuses as of 11/27/2022) [facility]21 History of Past illness Narrative* Problem Noted Date Resolved Date Nodule of lower lobe of right lung 05/04/2021 07/17/2021 Closed Colles' fracture of left radius 7 08/27/2017 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 Hemorrhage of gastrointestinal tract, unspecifie d 12/01/2014 09/18/2016 Abnormal mammogram, unspecified 05/10/2010 01/03/2015 Pain in limb 03/20/2010 01/03/2015 Dermatophytosis of nail 03/20/2010 09/18/20 16 Tobacco use disorder 07/27/2008 01/03/2015 Overview: Quit tobacco about age 63: about a 30 pack year (started about 1970 and quit about 1999) UA negative for blood in 07-11, 03-11 Anemia 01/20/2008 07/17/2021 Benign neoplasm of colon 08/21/2007 017 Restless legs syndrome (RLS) 08/21/2007 DM w/o Complication Type II 08/15/200501/2015 Overview: A1C 6.9% in 08-07, 6.7% in 08-09, 6% in 01-08, 6.9% in 08-10, 6.8% in 03-11, 7% in 06-11 Creat 0.9 in 06-07, 1.2 in 02-06, 1.6 in 01-07, 1.1 in 01-07, 1.1 in 04-10, 0.9 in 08-10, 0.8 in 03-11 UA negative for blood and protein in 01-07 Alb/Creat 6 in 10-09, 6 in 04-10, 16 in 03-11 [facility] 10-09: plans to do laser treatments (done on L eye in 01-08) Started Metformin 1000 mg bid in 05-10: changed to 500 mg bid for two weeks on 05-19-08 [address] [place] [address] per [facility] in 09-10 Diverticulosis of colon (without mention of hemo rrhage) 01/03/2015 Overview: Colonoscopy 06-15-07 (sister with colon ca): left sided tics with no polyps or masses HCT 41% in 05-07 Psoriasis and similar disorder 1 documented as of this encounter (statuses as of 12/03/2022) [facility]21 History of Past illness Narrative* Problem Noted Date Resolved Date Nodule of lower lobe of right lung 05/04/2021 07/17/2021 Closed Colles' fracture of left radius 7 08/27/2017 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 Hemorrhage of gastrointestinal tract, unspecifie d 12/01/2014 09/18/2016 Abnormal mammogram, unspecified 05/10/2010 01/03/2015 Pain in limb 03/20/2010 01/03/2015 Dermatophytosis of nail 03/20/2010 09/18/20 16 Tobacco use disorder 07/27/2008 01/03/2015 Overview: Quit tobacco about age 63: about a 30 pack year (started about 1970 and quit about 1999) UA negative for blood in 07-11, 03-11 Anemia 01/20/2008 07/17/2021 Benign neoplasm of colon 08/21/2007 017 Restless legs syndrome (RLS) 08/21/2007 DM w/o Complication Type II 08/15/200501/2015 Overview: A1C 6.9% in 08-07, 6.7% in 08-09, 6% in 01-08, 6.9% in 08-10, 6.8% in 03-11, 7% in 06-11 Creat 0.9 in 06-07, 1.2 in 02-06, 1.6 in 01-07, 1.1 in 01-07, 1.1 in 04-10, 0.9 in 08-10, 0.8 in 03-11 UA negative for blood and protein in 01-07 Alb/Creat 6 in 10-09, 6 in 04-10, 16 in 03-11 [facility] 10-09: plans to do laser treatments (done on L eye in 01-08) Started Metformin 1000 mg bid in 05-10: changed to 500 mg bid for two weeks on 05-19-08 [address] per [facility] in 09-10 Diverticulosis of colon (without mention of hemo rrhage) 01/03/2015 Overview: Colonoscopy 06-15-07 (sister with colon ca): left sided tics with no polyps or masses HCT 41% in 05-07 Psoriasis and similar disorder 1 documented as of this encounter (statuses as of 01/13/2023) [facility]21 History of Past illness Narrative* Problem Noted Date Resolved Date Nodule of lower lobe of right lung 05/04/2021 07/17/2021 Closed Colles' fracture of left radius 7 08/27/2017 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 Hemorrhage of gastrointestinal tract, unspecifie d 12/01/2014 09/18/2016 Abnormal mammogram, unspecified 05/10/2010 01/03/2015 Pain in limb 03/20/2010 01/03/2015 Dermatophytosis of nail 03/20/2010 09/18/20 16 Tobacco use disorder 07/27/2008 01/03/2015 Overview: Quit tobacco about age 63: about a 30 pack year (started about 1970 and quit about 1999) UA negative for blood in -, 03-11 Anemia 01/20/2008 07/17/2021 Benign neoplasm of colon 08/21/2007 017 Restless legs syndrome (RLS) 08/21/2007 DM w/o Complication Type II 08/15/2005 03/01/2015 Overview: A1C 6.9% in 08-07, 6.7% in 08-09, 6% in 01-08, 6.9% in 08-10, 6.8% in 03-11, 7% in 06-11 Creat 0.9 in 06-07, 1.2 in 02-06, 1.6 in 01-07, 1.1 in 01-07, 1.1 in 04-10, 0.9 in 08-10, 0.8 in 03-11 UA negative for blood and protein in 01-07 Alb/Creat 6 in 10-09, 6 in 04-10, 16 in 03-11 [facility] 10-09: plans to do laser treatments (done on L eye in 01-08) Started Metformin 1000 mg bid in 05-10: changed to 500 mg bid for two weeks on 05-19-08 [address] [place] [address] per [facility] in 09-10 Diverticulosis of colon (without mention of hemo rrhage) 01/03/2015 Overview: Colonoscopy 06-15-07 (sister with colon ca): left sided tics with no polyps or masses HCT 41% in 05-07 Psoriasis and similar disorder 1 documented as of this encounter (statuses as of 02/17/2023) [facility] History of Past illness Narrative* Problem Noted Date Resolved Date Nodule of lower lobe of right lung 05/04/2021 07/17/2021 Closed Colles' fracture of left radius 7 08/27/2017 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 Hemorrhage of gastrointestinal tract, unspecifie d 12/01/2014 09/18/2016 Abnormal mammogram, unspecified 05/10/2010 01/03/2015 Pain in limb 03/20/2010 01/03/2015 Dermatophytosis of nail 03/20/2010 09/18/20 16 Tobacco use disorder 07/27/2008 01/03/2015 Overview: Quit tobacco about age 63: about a 30 pack year (started about 1970 and quit about 1999) UA negative for blood in 07-11, 03-11 Anemia 01/20/2008 07/17/2021 Benign neoplasm of colon 08/21/2007 017 Restless legs syndrome (RLS) 08/21/2007 DM w/o Complication Type II 08/15/200501/2015 Overview: A1C 6.9% in 08-07, 6.7% in 08-09, 6% in 01-08, 6.9% in 08-10, 6.8% in 03-11, 7% in 06-11 Creat 0.9 in 06-07, 1.2 in 02-06, 1.6 in 01-07, 1.1 in 01-07, 1.1 in 04-10, 0.9 in 08-10, 0.8 in 03-11 UA negative for blood and protein in 01-07 Alb/Creat 6 in 10-09, 6 in 04-10, 16 in 03-11 [facility] 10-09: plans to do laser treatments (done on L eye in 01-08) Started Metformin 1000 mg bid in 05-10: changed to 500 mg bid for two weeks on 05-19-08 then [address] per [facility] in 09-10 Diverticulosis of colon (without mention of hemo rrhage) 01/03/2015 Overview: Colonoscopy 06-15-07 (sister with colon ca): left sided tics with no polyps or masses HCT 41% in 05-07 Psoriasis and similar disorder 1 documented as of this encounter (statuses as of 02/25/2023) [facility]21 History of Past illness Narrative* Problem Noted Date Resolved Date Nodule of lower lobe of right lung 05/04/2021 07/17/2021 Closed Colles' fracture of left radius 7 08/27/2017 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 Hemorrhage of gastrointestinal tract, unspecifie d 12/01/2014 09/18/2016 Abnormal mammogram, unspecified 05/10/2010 01/03/2015 Pain in limb 03/20/2010 01/03/2015 Dermatophytosis of nail 03/20/2010 09/18/20 16 Tobacco use disorder 07/27/2008 01/03/2015 Overview: Quit tobacco about age 63: about a 30 pack year (started about 1970 and quit about 1999) UA negative for blood in 07-11, 03-11 Anemia 01/20/2008 07/17/2021 Benign neoplasm of colon 08/21/2007 017 Restless legs syndrome (RLS) 08/21/2007 DM w/o Complication Type II 08/15/200501/2015 Overview: A1C 6.9% in 08-07, 6.7% in 08-09, 6% in 01-08, 6.9% in 08-10, 6.8% in 03-11, 7% in 06-11 Creat 0.9 in 06-07, 1.2 in 02-06, 1.6 in 01-07, 1.1 in 01-07, 1.1 in 04-10, 0.9 in 08-10, 0.8 in 03-11 UA negative for blood and protein in 01-07 Alb/Creat 6 in 10-09, 6 in 04-10, 16 in 03-11 [facility] 10-09: plans to do laser treatments (done on L eye in 01-08) Started Metformin 1000 mg bid in 05-10: changed to 500 mg bid for two weeks on 05-19-08 [address] per [facility] in 09-10 Diverticulosis of colon (without mention of hemo rrhage) 01/03/2015 Overview: Colonoscopy 06-15-07 (sister with colon ca): left sided tics with no polyps or masses HCT 41% in 05-07 Psoriasis and similar disorder 1 documented as of this encounter (statuses as of 02/28/2023) [facility] History of Past illness Narrative* Problem Noted Date Resolved Date Nodule of lower lobe of right lung 05/04/2021 07/17/2021 Closed Colles' fracture of left radius 7 08/27/2017 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 Hemorrhage of gastrointestinal tract, unspecifie d 12/01/2014 09/18/2016 Abnormal mammogram, unspecified 05/10/2010 01/03/2015 Pain in limb 03/20/2010 01/03/2015 Dermatophytosis of nail 03/20/2010 09/18/20 16 Tobacco use disorder 07/27/2008 01/03/2015 Overview: Quit tobacco about age 63: about a 30 pack year (started about 1970 and quit about 1999) UA negative for blood in 07-11, 03-11 Anemia 01/20/2008 07/17/2021 Benign neoplasm of colon 08/21/2007 017 Restless legs syndrome (RLS) 08/21/2007 DM w/o Complication Type II 08/15/200501/2015 Overview: A1C 6.9% in 08-07, 6.7% in 08-09, 6% in 01-08, 6.9% in 08-10, 6.8% in 03-11, 7% in 06-11 Creat 0.9 in 06-07, 1.2 in 02-06, 1.6 in 01-07, 1.1 in 01-07, 1.1 in 04-10, 0.9 in 08-10, 0.8 in 03-11 UA negative for blood and protein in 01-07 Alb/Creat 6 in 10-09, 6 in 04-10, 16 in 03-11 [facility] 10-09: plans to do laser treatments (done on L eye in 01-08) Started Metformin 1000 mg bid in 05-10: changed to 500 mg bid for two weeks on 05-19-[address] per [facility] in 09-10 Diverticulosis of colon (without mention of hemo rrhage) 01/03/2015 Overview: Colonoscopy 06-15-07 (sister with colon ca): left sided tics with no polyps or masses HCT 41% in 05-07 Psoriasis and similar disorder 1 documented as of this encounter (statuses as of 03/11/2023) [facility] History of Past illness Narrative* Problem Noted Date Resolved Date Nodule of lower lobe of right lung 05/04/2021 07/17/2021 Closed Colles' fracture of left radius 7 08/27/2017 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 Hemorrhage of gastrointestinal tract, unspecifie d 12/01/2014 09/18/2016 Abnormal mammogram, unspecified 05/10/2010 01/03/2015 Pain in limb 03/20/2010 01/03/2015 Dermatophytosis of nail 03/20/2010 09/18/20 16 Tobacco use disorder 07/27/2008 01/03/2015 Overview: Quit tobacco about age 63: about a 30 pack year (started about 1970 and quit about 1999) UA negative for blood in 07-11, 03-11 Anemia 01/20/2008 07/17/2021 Benign neoplasm of colon 08/21/2007 017 Restless legs syndrome (RLS) 08/21/2007 DM w/o Complication Type II 08/15/2005 03/0 01/2015 Overview: A1C 6.9% in 08-07, 6.7% in 08-09, 6% in 01-08, 6.9% in 08-10, 6.8% in 03-11, 7% in 06-11 Creat 0.9 in 06-07, 1.2 in 02-06, 1.6 in 01-07, 1.1 in 01-07, 1.1 in 04-10, 0.9 in 08-10, 0.8 in 03-11 UA negative for blood and protein in 01-07 Alb/Creat 6 in 10-09, 6 in 04-10, 16 in 03-11 [facility] 10-09: plans to do laser treatments (done on L eye in 01-08) Started Metformin 1000 mg bid in 05-10: changed to 500 mg bid for two weeks on 05-19-08 [address] per [facility] in 09-10 Diverticulosis of colon (without mention of hemo rrhage) 01/03/2015 Overview: Colonoscopy 06-15-07 (sister with colon ca): left sided tics with no polyps or masses HCT 41% in 05-07 Psoriasis and similar disorder 1 documented as of this encounter (statuses as of 04/14/2023) [facility] History of Past illness Narrative* Problem Noted Date Resolved Date Nodule of lower lobe of right lung 05/04/2021 07/17/2021 Closed Colles' fracture of left radius 7 08/27/2017 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 Hemorrhage of gastrointestinal tract, unspecifie d 12/01/2014 09/18/2016 Abnormal mammogram, unspecified 05/10/2010 01/03/2015 Pain in limb 03/20/2010 01/03/2015 Dermatophytosis of nail 03/20/2010 09/18/20 16 Tobacco use disorder 07/27/2008 01/03/2015 Overview: Quit tobacco about age 63: about a 30 pack year (started about 1970 and quit about 1999) UA negative for blood in 07-11, 03-11 Anemia 01/20/2008 07/17/2021 Benign neoplasm of colon 08/21/2007 017 Restless legs syndrome (RLS) 08/21/2007 DM w/o Complication Type II 08/15/2005 03/01/2015 Overview: A1C 6.9% in 08-07, 6.7% in 08-09, 6% in 01-08, 6.9% in 08-10, 6.8% in 03-11, 7% in 06-11 Creat 0.9 in 06-07, 1.2 in 02-06, 1.6 in 01-07, 1.1 in 01-07, 1.1 in 04-10, 0.9 in 08-10, 0.8 in 03-11 UA negative for blood and protein in 01-07 Alb/Creat 6 in 10-09, 6 in 04-10, 16 in 03-11 [facility] 10-09: plans to do laser treatments (done on L eye in 01-08) Started Metformin 1000 mg bid in 05-10: changed to 500 mg bid for two weeks on 05-19-08 [address] per [facility] in 09-10 Diverticulosis of colon (without mention of hemo rrhage) 01/03/2015 Overview: Colonoscopy 06-15-07 (sister with colon ca): left sided tics with no polyps or masses HCT 41% in 05-07 Psoriasis and similar disorder 1 documented as of this encounter (statuses as of 05/08/2023) [facility] History of Past illness Narrative* Problem Noted Date Diagnosed Date Resolved Date Nodule of lower lobe of right lung 05/04/2021 07/17/2021 Closed Colles' fracture of left radius 02/27/2017 08/27/2017 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 Hemorrhage of gastrointestin al tract, unspecified 12/01/2014 09/18/2016 Abnormal mammogram, unspecified 05/10/2010 01/03/2015 Pain in limb 03/20/2010 01/03/2015 Dermatophytosis of nail 03/20/201009/03 Tobacco use disorder 07/27/2008 015 Overview: Quit tobacco about age 63: about a 30 pack year (started about 1970 and quit about 1999) UA negative for blood in 07-11, 03-11 Anemia 01/20/2008 07/17/2021 Benign neoplasm of colon 08/21/2007 Restless legs syndrome (RLS) 08/21/2007 08/27/2017 DM w/o Complication Type II 08/15/2005 01/03/2015 Overview: A1C 6.9% in 08-07, 6.7% in 08-09, 6% in 01-08, 6.9% in 08-10, 6.8% in 03-11, 7% in 06-11 Creat 0.9 in 06-07, 1.2 in 02-06, 1.6 in 01-07, 1.1 in 01-07, 1.1 in 04-10, 0.9 in 08-10, 0.8 in 03-11 UA negative for blood and protein in 01-07 Alb/Creat 6 in 10-09, 6 in 04-10, 16 in 03-11 [facility] 10-09: plans to do laser treatments (done on L eye in 01-08) Started Metformin 1000 mg bid in 05-10: changed to 500 mg bid for two weeks on 05-19-08 [address] [place] [address] per [facility] in 09-10 Diverticulosis of colon (wit hout mention of hemorrhage) 01/03/2015 Overview: Colonoscopy 06-15-07 (sister with colon ca): left sided tics with no polyps or masses HCT 41% in 05-07 Psoriasis and similar disorder 08/27/2017 documented as of this encounter (statuses as of 07/23/2023) [facility] History of Past illness Narrative* Problem Noted Date Diagnosed Date Resolved Date Nodule of lower lobe of right lung 05/04/2021 07/17/2021 Closed Colles' fracture of left radius 02/27/2017 08/27/2017 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 Hemorrhage of gastrointestin al tract, unspecified 12/01/2014 09/18/2016 Abnormal mammogram, unspecified 05/10/2010 01/03/2015 Pain in limb 03/20/2010 01/03/2015 Dermatophytosis of nail 03/20/201009/03 Tobacco use disorder 07/27/2008 015 Overview: Quit tobacco about age 63: about a 30 pack year (started about 1970 and quit about 1999) UA negative for blood in 07-11, 03-11 Anemia 01/20/2008 07/17/2021 Benign neoplasm of colon 08/21/2007 Restless legs syndrome (RLS) 08/21/2007 08/27/2017 DM w/o Complication Type II 08/15/2005 01/03/2015 Overview: A1C 6.9% in 08-07, 6.7% in 08-09, 6% in 01-08, 6.9% in 08-10, 6.8% in 03-11, 7% in 06-11 Creat 0.9 in 06-07, 1.2 in 02-06, 1.6 in 01-07, 1.1 in 01-07, 1.1 in 04-10, 0.9 in 08-10, 0.8 in 03-11 UA negative for blood and protein in 01-07 Alb/Creat 6 in 10-09, 6 in 04-10, 16 in 03-11 [facility] 10-09: plans to do laser treatments (done on L eye in 01-08) Started Metformin 1000 mg bid in 05-10: changed to 500 mg bid for two weeks on 05-19-08 [address] [place] [address] per [facility] in 09-10 Diverticulosis of colon (wit hout mention of hemorrhage) 01/03/2015 Overview: Colonoscopy 06-15-07 (sister with colon ca): left sided tics with no polyps or masses HCT 41% in 05-07 Psoriasis and similar disorder 08/27/2017 documented as of this encounter (statuses as of 09/01/2023) [facility] History of Past illness Narrative* Problem Noted Date Diagnosed Date Resolved Date Nodule of lower lobe of right lung 05/04/2021 07/17/2021 Closed Colles' fracture of left radius 02/27/2017 08/27/2017 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 Hemorrhage of gastrointestin al tract, unspecified 12/01/2014 09/18/2016 Abnormal mammogram, unspecified 05/10/2010 01/03/2015 Pain in limb 03/20/2010 01/03/2015 Dermatophytosis of nail 03/20/201009/03 Tobacco use disorder 07/27/2008 015 Overview: Quit tobacco about age 63: about a 30 pack year (started about 1970 and quit about 1999) UA negative for blood in 07-11, 03-11 Anemia 01/20/2008 07/17/2021 Benign neoplasm of colon 08/21/2007 Restless legs syndrome (RLS) 08/21/2007 08/27/2017 DM w/o Complication Type II 08/15/2005 01/03/2015 Overview: A1C 6.9% in 08-07, 6.7% in 08-09, 6% in 01-08, 6.9% in 08-10, 6.8% in 03-11, 7% in 06-11 Creat 0.9 in -, 1.2 in 02-06, 1.6 in 01-07, 1.1 in 01-07, 1.1 in 04-10, 0.9 in 08-10, 0.8 in 03-11 UA negative for blood and protein in 01-07 Alb/Creat 6 in 10-09, 6 in 04-10, 16 in 03-11 [facility] 10-09: plans to do laser treatments (done on L eye in 01-08) Started Metformin 1000 mg bid in 05-10: changed to 500 mg bid for two weeks on 05-19-08 [address] per [facility] in 09-10 Diverticulosis of colon (wit hout mention of hemorrhage) 01/03/2015 Overview: Colonoscopy 06-15-07 (sister with colon ca): left sided tics with no polyps or masses HCT 41% in 05-07 Psoriasis and similar disorder 08/27/2017 documented as of this encounter (statuses as of 09/09/2023) [facility] History of Past illness Narrative* Problem Noted Date Diagnosed Date Resolved Date Nodule of lower lobe of right lung 05/04/2021 07/17/2021 Closed Colles' fracture of left radius 02/27/2017 08/27/2017 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 Hemorrhage of gastrointestin al tract, unspecified 12/01/2014 09/18/2016 Abnormal mammogram, unspecified 05/10/2010 01/03/2015 Pain in limb 03/20/2010 01/03/2015 Dermatophytosis of nail 03/20/201009/03 Tobacco use disorder 07/27/2008 015 Overview: Quit tobacco about age 63: about a 30 pack year (started about 1970 and quit about 1999) UA negative for blood in 07-11, 03-11 Anemia 01/20/2008 07/17/2021 Benign neoplasm of colon 08/21/2007 Restless legs syndrome (RLS) 08/21/2007 08/27/2017 DM w/o Complication Type II 08/15/2005 01/03/2015 Overview: A1C 6.9% in 08-07, 6.7% in 08-09, 6% in 01-08, 6.9% in 08-10, 6.8% in 03-11, 7% in 06-11 Creat 0.9 in 06-07, 1.2 in 02-06, 1.6 in 01-07, 1.1 in 01-07, 1.1 in 04-10, 0.9 in 08-10, 0.8 in 03-11 UA negative for blood and protein in 01-07 Alb/Creat 6 in 10-09, 6 in 04-10, 16 in 03-11 [facility] 10-09: plans to do laser treatments (done on L eye in 01-08) Started Metformin 1000 mg bid in 05-10: changed to 500 mg bid for two weeks on 05-19-[address] [facility] in 09-10 Diverticulosis of colon (wit hout mention of hemorrhage) 01/03/2015 Overview: Colonoscopy 06-15-07 (sister with colon ca): left sided tics with no polyps or masses HCT 41% in 05-07 Psoriasis and similar disorder 08/27/2017 documented as of this encounter (statuses as of 09/12/2023) [facility] History of Past illness Narrative* Problem Noted Date Diagnosed Date Resolved Date Nodule of lower lobe of right lung 05/04/2021 07/17/2021 Closed Colles' fracture of left radius 02/27/2017 08/27/2017 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 Hemorrhage of gastrointestin al tract, unspecified 12/01/2014 09/18/2016 Abnormal mammogram, unspecified 05/10/2010 01/03/2015 Pain in limb 03/20/2010 01/03/2015 Dermatophytosis of nail 03/20/201009/03 Tobacco use disorder 07/27/2008 015 Overview: Quit tobacco about age 63: about a 30 pack year (started about 1970 and quit about 1999) UA negative for blood in 07-11, 03-11 Anemia 01/20/2008 07/17/2021 Benign neoplasm of colon 08/21/2007 Restless legs syndrome (RLS) 08/21/2007 08/27/2017 DM w/o Complication Type II 08/15/2005 01/03/2015 Overview: A1C 6.9% in 08-07, 6.7% in 08-09, 6% in 01-08, 6.9% in 08-10, 6.8% in 03-11, 7% in 06-11 Creat 0.9 in 06-07, 1.2 in 02-06, 1.6 in 01-07, 1.1 in 01-07, 1.1 in 04-10, 0.9 in 08-10, 0.8 in 03-11 UA negative for blood and protein in 01-07 Alb/Creat 6 in 10-09, 6 in 04-10, 16 in 03-11 [facility] 10-09: plans to do laser treatments (done on L eye in 01-08) Started Metformin 1000 mg bid in 05-10: changed to 500 mg bid for two weeks on 05-19-08 [place] [address] per [facility] in 09-10 Diverticulosis of colon (wit hout mention of hemorrhage) 01/03/2015 Overview: Colonoscopy 06-15-07 (sister with colon ca): left sided tics with no polyps or masses HCT 41% in 05-07 Psoriasis and similar disorder 08/27/2017 documented as of this encounter (statuses as of 09/15/2023) [facility] History of Past illness Narrative* Problem Noted Date Diagnosed Date Resolved Date Nodule of lower lobe of right lung 05/04/2021 07/17/2021 Closed Colles' fracture of left radius 02/27/2017 08/27/2017 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 Hemorrhage of gastrointestin al tract, unspecified 12/01/2014 09/18/2016 Abnormal mammogram, unspecified 05/10/2010 01/03/2015 Pain in limb 03/20/2010 01/03/2015 Dermatophytosis of nail 03/20/201009/03 Tobacco use disorder 07/27/2008 015 Overview: Quit tobacco about age 63: about a 30 pack year (started about 1970 and quit about 1999) UA negative for blood in 07-11, 03-11 Anemia 01/20/2008 07/17/2021 Benign neoplasm of colon 08/21/2007 Restless legs syndrome (RLS) 08/21/2007 08/27/2017 DM w/o Complication Type II 08/15/2005 01/03/2015 Overview: A1C 6.9% in 08-07, 6.7% in 08-09, 6% in 01-08, 6.9% in 08-10, 6.8% in 03-11, 7% in 06-11 Creat 0.9 in 06-07, 1.2 in 02-06, 1.6 in 01-07, 1.1 in 01-07, 1.1 in 04-10, 0.9 in 08-10, 0.8 in 03-11 UA negative for blood and protein in 01-07 Alb/Creat 6 in 10-09, 6 in 04-10, 16 in 03-11 [facility] 10-09: plans to do laser treatments (done on L eye in 01-08) Started Metformin 1000 mg bid in 05-10: changed to 500 mg bid for two weeks on 05-19-08 [address] [place] [address] per [facility] in 09-10 Diverticulosis of colon (wit hout mention of hemorrhage) 01/03/2015 Overview: Colonoscopy 06-15-07 (sister with colon ca): left sided tics with no polyps or masses HCT 41% in 05-07 Psoriasis and similar disorder 08/27/2017 documented as of this encounter (statuses as of 09/17/2023) [facility] History of Past illness Narrative* Problem Noted Date Diagnosed Date Resolved Date Nodule of lower lobe of right lung 05/04/2021 07/17/2021 Closed Colles' fracture of left radius 02/27/2017 08/27/2017 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 Hemorrhage of gastrointestin al tract, unspecified 12/01/2014 09/18/2016 Abnormal mammogram, unspecified 05/10/2010 01/03/2015 Pain in limb 03/20/2010 01/03/2015 Dermatophytosis of nail 03/20/201009/03 Tobacco use disorder 07/27/2008 015 Overview: Quit tobacco about age 63: about a 30 pack year (started about 1970 and quit about 1999) UA negative for blood in 07-11, 03-11 Anemia 01/20/2008 07/17/2021 Benign neoplasm of colon 08/21/2007 Restless legs syndrome (RLS) 08/21/2007 08/27/2017 DM w/o Complication Type II 08/15/2005 01/03/2015 Overview: A1C 6.9% in 08-07, 6.7% in 08-09, 6% in 01-08, 6.9% in 08-10, 6.8% in 03-11, 7% in 06-11 Creat 0.9 in 06-07, 1.2 in 02-06, 1.6 in 01-07, 1.1 in 01-07, 1.1 in 04-10, 0.9 in 08-10, 0.8 in 03-11 UA negative for blood and protein in 01-07 Alb/Creat 6 in 10-09, 6 in 04-10, 16 in 03-11 [facility] 10-09: plans to do laser treatments (done on L eye in 01-08) Started Metformin 1000 mg bid in 05-10: changed to 500 mg bid for two weeks on 05-19-08 [place] [address] per [facility] in 09-10 Diverticulosis of colon (wit hout mention of hemorrhage) 01/03/2015 Overview: Colonoscopy 06-15-07 (sister with colon ca): left sided tics with no polyps or masses HCT 41% in 05-07 Psoriasis and similar disorder 08/27/2017 documented as of this encounter (statuses as of 12/10/2023) [facility] History of Past illness Narrative* Problem Noted Date Diagnosed Date Resolved Date Nodule of lower lobe of right lung 05/04/2021 07/17/2021 Closed Colles' fracture of left radius 02/27/2017 08/27/2017 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 Hemorrhage of gastrointestin al tract, unspecified 12/01/2014 09/18/2016 Abnormal mammogram, unspecified 05/10/2010 01/03/2015 Pain in limb 03/20/2010 01/03/2015 Dermatophytosis of nail 03/20/201009/03 Tobacco use disorder 07/27/2008 015 Overview: Quit tobacco about age 63: about a 30 pack year (started about 1970 and quit about 1999) UA negative for blood in 07-11, 03-11 Anemia 01/20/2008 07/17/2021 Benign neoplasm of colon 08/21/2007 Restless legs syndrome (RLS) 08/21/2007 08/27/2017 DM w/o Complication Type II 08/15/2005 01/03/2015 Overview: A1C 6.9% in 08-07, 6.7% in 08-09, 6% in 01-08, 6.9% in 08-10, 6.8% in 03-11, 7% in 06-11 Creat 0.9 in 06-07, 1.2 in 02-06, 1.6 in 01-07, 1.1 in 01-07, 1.1 in 04-10, 0.9 in 08-10, 0.8 in 03-11 UA negative for blood and protein in 01-07 Alb/Creat 6 in 10-09, 6 in 04-10, 16 in 03-11 [facility] 10-09: plans to do laser treatments (done on L eye in 01-08) Started Metformin 1000 mg bid in 05-10: changed to 500 mg bid for two weeks on 05-19-08 then [address] per [facility] in 09-10 Diverticulosis of colon (susana zamora mention of hemorrhage) 01/03/2015 Overview: Colonoscopy 06-15-07 (sister with colon ca): left sided tics with no polyps or masses HCT 41% in 05-07 Psoriasis and similar disorder 08/27/2017 documented as of this encounter (statuses as of 12/11/2023) [facility] History of Past illness Narrative* Problem Noted Date Diagnosed Date Resolved Date Nodule of lower lobe of right lung 05/04/2021 07/17/2021 Closed Colles' fracture of left radius 02/27/2017 08/27/2017 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 Hemorrhage of gastrointestin al tract, unspecified 12/01/2014 09/18/2016 Abnormal mammogram, unspecified 05/10/2010 01/03/2015 Pain in limb 03/20/2010 01/03/2015 Dermatophytosis of nail 03/20/201009/03 Tobacco use disorder 07/27/2008 015 Overview: Quit tobacco about age 63: about a 30 pack year (started about 1970 and quit about 1999) UA negative for blood in 07-11, 03-11 Anemia 01/20/2008 07/17/2021 Benign neoplasm of colon 08/21/2007 Restless legs syndrome (RLS) 08/21/2007 08/27/2017 DM w/o Complication Type II 08/15/2005 01/03/2015 Overview: A1C 6.9% in 08-07, 6.7% in 08-09, 6% in 01-08, 6.9% in 08-10, 6.8% in 03-11, 7% in 06-11 Creat 0.9 in 06-07, 1.2 in 02-06, 1.6 in 01-07, 1.1 in 01-07, 1.1 in 04-10, 0.9 in 08-10, 0.8 in 03-11 UA negative for blood and protein in 01-07 Alb/Creat 6 in 10-09, 6 in 04-10, 16 in 03-11 [facility] 10-09: plans to do laser treatments (done on L eye in 01-08) Started Metformin 1000 mg bid in 05-10: changed to 500 mg bid for two weeks on 05-19-08 then to [address] per [facility] in 09-10 Diverticulosis of colon (wit hout mention of hemorrhage) 01/03/2015 Overview: Colonoscopy 06-15-07 (sister with colon ca): left sided tics with no polyps or masses HCT 41% in 05-07 Psoriasis and similar disorder 08/27/2017 documented as of this encounter (statuses as of 12/11/2023) [facility] Chronic obstructive pulmonary disease, unspecified COPD type (HCC)- Primary Chronic diastolic congestive heart failure (HCC) Chronic diastolic heart failure [facility] Diagnosis Chronic obstructive pulmonary disease, unspecified COPD type (HCC) Chronic diastolic congestive heart failure (HCC) Chronic diastolic heart failure [facility] Chronic obstructive pulmonary disease, unspecified COPD type (HCC) Chronic diastolic congestive heart failure (HCC) Chronic diastolic heart failure [facility] Diagnosis Coronary artery disease involving [place] coronary artery of [place] heart without angina pectoris- Primary Chronic diastolic congestive heart failure (HCC) Chronic diastolic heart failure Essential hypertension Unspecified essential hypertension Hyperlipidemia, unspecified hyperlipidemia type PAD (peripheral artery disease) ([facility]) both lower extremities. Peripheral vascular disease, unspecified [facility] Essential hypertension Unspecified essential hypertension Hyperlipidemia, unspecified hyperlipidemia type [facility]* Diagnosis Chronic diastolic congestive heart failure (HCC) Chronic diastolic heart failure [facility]* Diagnosis Type 2 diabetes mellitus with stage 3b chronic kidney disease, without long-term current use of insulin (HCC)- Primary Type 2 diabetes mellitus with diabetic neuropathy, without long-term current use of insulin (HCC) Essential hypertension Unspecified essential hypertension [facility] Diagnosis Type 2 diabetes mellitus with diabetic neuropathy, without long-term current use of insulin (HCC) [facility] Diagnosis Essential hypertension Unspecified essential hypertension [facility] Diagnosis Stage 2 moderate COPD by GOLD classification ([facility])- Primary Pulmonary HTN (HCC) Other chronic pulmonary heart diseases Chronic hypoxemic respiratory failure (HCC) Chronic respiratory failure Obstructive sleep apnea syndrome Obstructive sleep apnea (adult) (pediatric) [facility] Diagnosis Dizzy- Primary Dizziness and giddiness Shortness of breath [facility] Diagnosis Angina of effort (HCC)- Primary Other and unspecified angina pectoris [facility] Diagnosis Chronic obstructive pulmonary disease, unspecified COPD type ([facility]) [facility] Diagnosis Chronic obstructive pulmonary disease, unspecified COPD type (HCC) [facility] Diagnosis Atherosclerosis of [place] coronary artery of [place] heart without angina pectoris [facility] Diagnosis Chronic diastolic congestive heart failure (HCC)- Primary Chronic diastolic heart failure Familial hypercholesterolemia Pure hypercholesterolemia Coronary artery disease involving [place] coronary artery of [place] heart without angina pectoris PAD (peripheral artery disease) ([facility]) both lower extremities. Peripheral vascular disease, unspecified Pulmonary HTN (HCC) Other chronic pulmonary heart diseases [facility] Diagnosis Stage 2 moderate COPD by GOLD classification ([facility]) [facility] Diagnosis Stage 2 moderate COPD by GOLD classification ([facility]) Chronic hypoxemic respiratory failure (HCC) Chronic respiratory failure [facility] Diagnosis Centrilobular emphysema (HCC)- Primary Other emphysema Hypoxemia PAH (pulmonary artery hypertension) (HCC) Other chronic pulmonary heart diseases Need for influenza vaccination Need for prophylactic vaccination and inoculation against influenza [facility] Diagnosis Gastroesophageal reflux disease without esophagitis Esophageal reflux [facility] Diagnosis Type 2 diabetes mellitus with diabetic neuropathy, without long-term current use of insulin (HCC)- Primary Chronic diastolic congestive heart failure (HCC) Chronic diastolic heart failure Chronic obstructive pulmonary disease, unspecified COPD type (HCC) Atherosclerosis of [place] coronary artery of [place] heart without angina pectoris Vitamin D deficiency Unspecified vitamin D deficiency Encounter for long-term current use of medication Syncope, unspecified syncope type [facility] Diagnosis Atherosclerosis of [place] coronary artery of [place] heart without angina pectoris [facility] Diagnosis Rhinitis Chronic rhinitis [facility] Diagnosis Gastroesophageal reflux disease without esophagitis Esophageal reflux Essential hypertension Unspecified essential hypertension documented in this encounter [facility] note* Diagnosis Pure hypercholesterolemia- Primary Stented coronary artery Postsurgical percutaneous transluminal coronary angioplasty status PAD (peripheral artery disease) ([facility]) both lower extremities. Peripheral vascular disease, unspecified Essential hypertension Unspecified essential hypertension [facility] Diagnosis Type 2 diabetes mellitus with stage 3b chronic kidney disease, without long-term current use of insulin ([facility])- Primary documented in this encounter [facility] note* Diagnosis Stage 2 moderate COPD by GOLD classification ([facility])- Primary Angina of effort (HCC) Other and unspecified angina pectoris Chronic diastolic congestive heart failure (HCC) Chronic diastolic heart failure Pulmonary HTN ([facility]) Other chronic pulmonary heart diseases Chronic rhinitis Gastroesophageal reflux disease without esophagitis Esophageal reflux Chronic hypoxemic respiratory failure (HCC) Chronic respiratory failure [facility] Diagnosis Hyperlipidemia, unspecified hyperlipidemia type [facility] Diagnosis Type 2 diabetes mellitus with diabetic neuropathy, without long-term current use of insulin ([facility]) [facility] Diagnosis Essential hypertension Unspecified essential hypertension [facility] Diagnosis Moderate COPD (chronic obstructive pulmonary disease) ([facility])- Primary Chronic airway obstruction, not elsewhere classified Former smoker Personal history of tobacco use, presenting hazards to [facility] Pulmonary hypertension ([facility]) Other chronic pulmonary heart diseases Need for influenza vaccination Need for prophylactic vaccination and inoculation against influenza [facility] Diagnosis Moderate COPD (chronic obstructive pulmonary disease) (HCC) Chronic airway obstruction, not elsewhere classified [facility] Diagnosis Stage 2 moderate COPD by GOLD classification ([facility]) Chronic diastolic congestive heart failure (HCC)- Primary Chronic diastolic heart failure [facility] Diagnosis Chronic diastolic congestive heart failure (HCC)- Primary Chronic diastolic heart failure Pure hypercholesterolemia Essential hypertension Unspecified essential hypertension Coronary artery disease involving [place] coronary artery of [place] heart without angina pectoris Stented coronary artery Postsurgical percutaneous transluminal coronary angioplasty status Pulmonary HTN (HCC) Other chronic pulmonary heart diseases [facility] Diagnosis Essential hypertension- Primary Unspecified essential hypertension Type 2 diabetes mellitus with stage 3b chronic kidney disease, without long-term current use of insulin (HCC) Coronary artery disease involving [place] coronary artery of [place] heart without angina pectoris Stage 2 moderate COPD by GOLD classification (HCC) [facility]* Diagnosis Dementia without behavioral disturbance, psychotic disturbance, mood disturbance, or anxiety, unspecified dementia severity, unspecified dementia type (HCC)- Primary Memory loss Frequent falls Personal history of fall documented in this encounter [facility] note* Diagnosis Dementia without behavioral disturbance, psychotic disturbance, mood disturbance, or anxiety, unspecified dementia severity, unspecified dementia type (HCC)- Primary Memory loss Frequent falls Personal history of fall documented in this encounter [facility] for referral (narrative)* Outpatient Procedure (Routine) - Authorized Specialty Diagnoses / Procedures Referred By Ora ingram Referred To Contact [facility] [place] Diagnoses Chronic obstructive pulmonary disease, unspecified COPD type (HCC) Chronic diastolic congestive heart failure (HCC) Procedures OXIMETRY WITH AMBULATION NONINVASIVE EAR/PULSE OXIMETRY Emerson Deleon MD [facility] [place] [address] Respiratory [place] [address] [place] [address] Referral ID Status Reason Start Date Expiration Date Visits Requested Visits Authorized [id number] Authorized Auto-Generat ed Referral 01/28/2022 11/02/2022 1 1 [facility] for referral (narrative)* Outpatient Procedure (Routine) - Pending Review Specialty Diagnoses / Procedures Referred By Contac t Referred To Contact [facility] Diagnoses Stage 2 moderate COPD by GOLD classification (HCC) Chronic hypoxemic respiratory failure (HCC) Procedures LUNG DIFFUSION CAPACITY (DLCO) DIFFUSING CAPACITY KarissaMiladis PA-C [address] [address] [address] Referral ID Status Reason Start Date Expiration Date Visits Requested Visits Authorized [id number] Pending Review Auto-Generat ed Referral 05/30/2022 06/29/2023 1 1 * Outpatient Procedure (Routine) - Pending Review Specialty Diagnoses / Procedures Referred By Contac t Referred To Contact [facility] Diagnoses Stage 2 moderate COPD by GOLD classification (HCC) Procedures SPIROMETRY BASELINE ONLY SPMTRY W/VC EXPIRATORY XIOMARA W/WO MXML VOL VNTJ Miladis Foster PA-C [address] [place] [address] [address] Referral ID Status Reason Start Date Expiration Date Visits Requested Visits Authorized [id number] Pending Review Auto-Generat ed Referral 05/30/2022 06/29/2023 1 1 [facility] for referral (narrative)* Outpatient Procedure (Routine) - Pending Review Specialty Diagnoses / Procedures Referred By Contac t Referred To Contact [facility] Diagnoses Dizzy Shortness of breath Procedures ECHO ECHO TTHRC R-T 2D W/WOM-MODE COMPL SPEC&COLR D Emilie Corral MD [address] [place] [address] [facility] [address] [address] Referral ID Status Reason Start Date Expiration Date Visits Requested Visits Authorized [id number] Pending Review Auto-Generat ed Referral 07/01/2022 06/24/2023 1 1 [facility] for referral (narrative)* Outpatient Procedure (Routine) - Closed Specialty Diagnoses / Procedures Referred By Contac t Referred To Contact [facility] [place] Diagnoses Chronic diastolic congestive heart failure (HCC) Procedures ECG COMPLETE ECG ROUTINE ECG W/LEAST 12 LDS W/I&R Emilie Corral MD [address] [place] [address] [facility] [address] [place] [address] Referral ID Status Reason Start Date Expiration Date V isits Requested Visits Authorized [id number] Closed Auto-Generate d Referral 08/13/2022 11/02/2022 1 1 [facility] Outpatient Procedure (Routine) - Pending Review Specialty Diagnoses / Procedures Referred By Ora ingram Referred To Contact [facility] [place] Diagnoses Chronic diastolic congestive heart failure (HCC) Procedures ECG COMPLETE ECG ROUTINE ECG W/LEAST 12 LDS W/I&R Emilie Corral MD [address] [place] [address] [facility] [address] [place] [address] Referral ID Status Reason Start Date Expiration Date Visits Requested Visits Authorized [id number] Pending Review Auto-Generat ed Referral 09/09/2023 09/08/2024 1 1 [facility] Summary Purpose Family History No Family History Records FoundNo Family History Records FoundNo Family History Records FoundNo Family History Records FoundNo Family History Records Found Advance Directives No Advanced Directives Records FoundDocuments on File Type Date Recorded 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 Advance Directive(s) 02/12/2012 12:00 AM Advance Directive(s) 12/18/2006 12:00 AM Documents on File Type Date Recorded 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 Advance Directive(s) 02/12/2012 12:00 AM Advance Directive(s) 12/18/2006 12:00 AM Documents on File Type Date Recorded 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 Advance Directive(s) 04/02/2022 12:26 PM Advance Directive(s) 02/12/2012 12:00 AM Advance Directive(s) 12/18/2006 12:00 AM Documents on File Type Date Recorded 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 Advance Directive(s) 04/02/2022 12:26 PM Advance Directive(s) 02/12/2012 12:00 AM Advance Directive(s) 12/18/2006 12:00 AM Documents on File Type Date Recorded 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 Advance Directive(s) 04/02/2022 12:26 PM Advance Directive(s) 02/12/2012 Advance Directive(s) 12/18/2006 Documents on File Type Date Recorded 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 Referral ID Status Reason Start Date Expiration Date Visits Requested Visits Authorized [id number] Authorized Auto-Generat ed Referral 12/10/2023 01/08/2025 1 1 Specialty Diagnoses / Procedures Referred By Ora ingram Referred To Contact [facility] Diagnoses Dementia without behavioral disturbance, psychotic disturbance, mood disturbance, or anxiety, unspecified dementia severity, unspecified dementia type (HCC) Memory loss Procedures MRI BRAIN WO IVCON MRI BRAIN BRAIN STEM W/O CONTRAST MATERIAL Mia Haywood PA-C [phone] Mr [address] [facility]95 Referral ID Status Reason Start Date Expiration Date Visits Requested Visits Authorized [id number] Authorized Auto-Generat ed Referral 12/10/2023 01/08/2025 1 1 Additional Source Comments INFORMATION SOURCE (unrecogn ized section and content) DATE CREATED AUTHOR AUTHOR'S ORGANIZ ATION 07/27/2020 [facility] DATE CREATED AUTHOR AUTHOR'S ORGANIZ ATION 01/25/2021 [facility] DATE CREATED AUTHOR AUTHOR'S ORGANIZ ATION 09/13/2023 [facility] DATE CREATED AUTHOR AUTHOR'S ORGANIZ ATION 12/13/2023 [facility] Source Comments (unrecognize d section and content) In the event this informatio n is protected by the Federal Confidentiality of Alcohol and Drug Abuse Patient Records regulations: The Federal rules restrict any use of the information to criminally investigate or prosecute any alcohol or drug abuse patient.[facility] the event this information is protected by the Federal Confidentiality of Alcohol and Drug Abuse Patient Records regulations: The Federal rules restrict any use of the information to criminally investigate or prosecute any alcohol or drug abuse patient.[facility] HospitalIn the event this information is protected by the Federal Confidentiality of Alcohol and Drug Abuse Patient Records regulations: The Federal rules restrict any use of the information to criminally investigate or prosecute any alcohol or drug abuse patient.[facility] HospitalIn the event this information is protected by the Federal Confidentiality of Alcohol and Drug Abuse Patient Records regulations: The Federal rules restrict any use of the information to criminally investigate or prosecute any alcohol or drug abuse patient.[facility] HospitalIn the event this information is protected by the Federal Confidentiality of Alcohol and Drug Abuse Patient Records regulations: The Federal rules restrict any use of the information to criminally investigate or prosecute any alcohol or drug abuse patient.[facility] HospitalIn the event this information is protected by the Federal Confidentiality of Alcohol and Drug Abuse Patient Records regulations: The Federal rules restrict any use of the information to criminally investigate or prosecute any alcohol or drug abuse patient.[facility] HospitalIn the event this information is protected by the Federal Confidentiality of Alcohol and Drug Abuse Patient Records regulations: The Federal rules restrict any use of the information to criminally investigate or prosecute any alcohol or drug abuse patient.[facility] HospitalIn the event this information is protected by the Federal Confidentiality of Alcohol and Drug Abuse Patient Records regulations: The Federal rules restrict any use of the information to criminally investigate or prosecute any alcohol or drug abuse patient.[facility] the event this information is protected by the Federal Confidentiality of Alcohol and Drug Abuse Patient Records regulations: The Federal rules restrict any use of the information to criminally investigate or prosecute any alcohol or drug abuse patient.[facility] HospitalIn the event this information is protected by the Federal Confidentiality of Alcohol and Drug Abuse Patient Records regulations: The Federal rules restrict any use of the information to criminally investigate or prosecute any alcohol or drug abuse patient.[facility] HospitalIn the event this information is protected by the Federal Confidentiality of Alcohol and Drug Abuse Patient Records regulations: The Federal rules restrict any use of the information to criminally investigate or prosecute any alcohol or drug abuse patient.[facility] HospitalIn the event this information is protected by the Federal Confidentiality of Alcohol and Drug Abuse Patient Records regulations: The Federal rules restrict any use of the information to criminally investigate or prosecute any alcohol or drug abuse patient.[facility] HospitalIn the event this information is protected by the Federal Confidentiality of Alcohol and Drug Abuse Patient Records regulations: The Federal rules restrict any use of the information to criminally investigate or prosecute any alcohol or drug abuse patient.[facility] HospitalIn the event this information is protected by the Federal Confidentiality of Alcohol and Drug Abuse Patient Records regulations: The Federal rules restrict any use of the information to criminally investigate or prosecute any alcohol or drug abuse patient.[facility] HospitalIn the event this information is protected by the Federal Confidentiality of Alcohol and Drug Abuse Patient Records regulations: The Federal rules restrict any use of the information to criminally investigate or prosecute any alcohol or drug abuse patient.[facility] HospitalIn the event this information is protected by the Federal Confidentiality of Alcohol and Drug Abuse Patient Records regulations: The Federal rules restrict any use of the information to criminally investigate or prosecute any alcohol or drug abuse patient.[facility] HospitalIn the event this information is protected by the Federal Confidentiality of Alcohol and Drug Abuse Patient Records regulations: The Federal rules restrict any use of the information to criminally investigate or prosecute any alcohol or drug abuse patient.[facility] HospitalIn the event this information is protected by the Federal Confidentiality of Alcohol and Drug Abuse Patient Records regulations: The Federal rules restrict any use of the information to criminally investigate or prosecute any alcohol or drug abuse patient.[facility] HospitalIn the event this information is protected by the Federal Confidentiality of Alcohol and Drug Abuse Patient Records regulations: The Federal rules restrict any use of the information to criminally investigate or prosecute any alcohol or drug abuse patient.[facility] HospitalIn the event this information is protected by the Federal Confidentiality of Alcohol and Drug Abuse Patient Records regulations: The Federal rules restrict any use of the information to criminally investigate or prosecute any alcohol or drug abuse patient.[facility] HospitalIn the event this information is protected by the Federal Confidentiality of Alcohol and Drug Abuse Patient Records regulations: The Federal rules restrict any use of the information to criminally investigate or prosecute any alcohol or drug abuse patient.[facility] HospitalIn the event this information is protected by the Federal Confidentiality of Alcohol and Drug Abuse Patient Records regulations: The Federal rules restrict any use of the information to criminally investigate or prosecute any alcohol or drug abuse patient.[facility] HospitalIn the event this information is protected by the Federal Confidentiality of Alcohol and Drug Abuse Patient Records regulations: The Federal rules restrict any use of the information to criminally investigate or prosecute any alcohol or drug abuse patient.[facility] HospitalIn the event this information is protected by the Federal Confidentiality of Alcohol and Drug Abuse Patient Records regulations: The Federal rules restrict any use of the information to criminally investigate or prosecute any alcohol or drug abuse patient.[facility] HospitalIn the event this information is protected by the Federal Confidentiality of Alcohol and Drug Abuse Patient Records regulations: The Federal rules restrict any use of the information to criminally investigate or prosecute any alcohol or drug abuse patient.[facility] HospitalIn the event this information is protected by the Federal Confidentiality of Alcohol and Drug Abuse Patient Records regulations: The Federal rules restrict any use of the information to criminally investigate or prosecute any alcohol or drug abuse patient.[facility] HospitalIn the event this information is protected by the Federal Confidentiality of Alcohol and Drug Abuse Patient Records regulations: The Federal rules restrict any use of the information to criminally investigate or prosecute any alcohol or drug abuse patient.[facility] HospitalIn the event this information is protected by the Federal Confidentiality of Alcohol and Drug Abuse Patient Records regulations: The Federal rules restrict any use of the information to criminally investigate or prosecute any alcohol or drug abuse patient.[facility] HospitalIn the event this information is protected by the Federal Confidentiality of Alcohol and Drug Abuse Patient Records regulations: The Federal rules restrict any use of the information to criminally investigate or prosecute any alcohol or drug abuse patient.[facility] HospitalIn the event this information is protected by the Federal Confidentiality of Alcohol and Drug Abuse Patient Records regulations: The Federal rules restrict any use of the information to criminally investigate or prosecute any alcohol or drug abuse patient.[facility] HospitalIn the event this information is protected by the Federal Confidentiality of Alcohol and Drug Abuse Patient Records regulations: The Federal rules restrict any use of the information to criminally investigate or prosecute any alcohol or drug abuse patient.[facility] HospitalIn the event this information is protected by the Federal Confidentiality of Alcohol and Drug Abuse Patient Records regulations: The Federal rules restrict any use of the information to criminally investigate or prosecute any alcohol or drug abuse patient.[facility] HospitalIn the event this information is protected by the Federal Confidentiality of Alcohol and Drug Abuse Patient Records regulations: The Federal rules restrict any use of the information to criminally investigate or prosecute any alcohol or drug abuse patient.[facility] HospitalIn the event this information is protected by the Federal Confidentiality of Alcohol and Drug Abuse Patient Records regulations: The Federal rules restrict any use of the information to criminally investigate or prosecute any alcohol or drug abuse patient.[facility] HospitalIn the event this information is protected by the Federal Confidentiality of Alcohol and Drug Abuse Patient Records regulations: The Federal rules restrict any use of the information to criminally investigate or prosecute any alcohol or drug abuse patient.[facility] HospitalIn the event this information is protected by the Federal Confidentiality of Alcohol and Drug Abuse Patient Records regulations: The Federal rules restrict any use of the information to criminally investigate or prosecute any alcohol or drug abuse patient.[facility] HospitalIn the event this information is protected by the Federal Confidentiality of Alcohol and Drug Abuse Patient Records regulations: The Federal rules restrict any use of the information to criminally investigate or prosecute any alcohol or drug abuse patient.[facility] HospitalIn the event this information is protected by the Federal Confidentiality of Alcohol and Drug Abuse Patient Records regulations: The Federal rules restrict any use of the information to criminally investigate or prosecute any alcohol or drug abuse patient.[facility] HospitalIn the event this information is protected by the Federal Confidentiality of Alcohol and Drug Abuse Patient Records regulations: The Federal rules restrict any use of the information to criminally investigate or prosecute any alcohol or drug abuse patient.[facility] HospitalIn the event this information is protected by the Federal Confidentiality of Alcohol and Drug Abuse Patient Records regulations: The Federal rules restrict any use of the information to criminally investigate or prosecute any alcohol or drug abuse patient.[facility] HospitalIn the event this information is protected by the Federal Confidentiality of Alcohol and Drug Abuse Patient Records regulations: The Federal rules restrict any use of the information to criminally investigate or prosecute any alcohol or drug abuse patient.[facility] HospitalIn the event this information is protected by the Federal Confidentiality of Alcohol and Drug Abuse Patient Records regulations: The Federal rules restrict any use of the information to criminally investigate or prosecute any alcohol or drug abuse patient.[facility] HospitalIn the event this information is protected by the Federal Confidentiality of Alcohol and Drug Abuse Patient Records regulations: The Federal rules restrict any use of the information to criminally investigate or prosecute any alcohol or drug abuse patient.[facility] HospitalIn the event this information is protected by the Federal Confidentiality of Alcohol and Drug Abuse Patient Records regulations: The Federal rules restrict any use of the information to criminally investigate or prosecute any alcohol or drug abuse patient.[facility] HospitalIn the event this information is protected by the Federal Confidentiality of Alcohol and Drug Abuse Patient Records regulations: The Federal rules restrict any use of the information to criminally investigate or prosecute any alcohol or drug abuse patient.[facility] HospitalIn the event this information is protected by the Federal Confidentiality of Alcohol and Drug Abuse Patient Records regulations: The Federal rules restrict any use of the information to criminally investigate or prosecute any alcohol or drug abuse patient.[facility] HospitalIn the event this information is protected by the Federal Confidentiality of Alcohol and Drug Abuse Patient Records regulations: The Federal rules restrict any use of the information to criminally investigate or prosecute any alcohol or drug abuse patient.[facility] HospitalIn the event this information is protected by the Federal Confidentiality of Alcohol and Drug Abuse Patient Records regulations: The Federal rules restrict any use of the information to criminally investigate or prosecute any alcohol or drug abuse patient.[facility] HospitalIn the event this information is protected by the Federal Confidentiality of Alcohol and Drug Abuse Patient Records regulations: The Federal rules restrict any use of the information to criminally investigate or prosecute any alcohol or drug abuse patient.[facility] Reason for Visit (unrecogniz ed section and content) Specialty Diagnoses / Procedures Referred By Contac t Referred To Contact Pulmonary and Critical Care Medicine / PULMONARY MEDICINE Diagnoses Encounter for follow-up examination after completed treatment for conditions other than malignant neoplasm 6 MTH F/U COPD Procedures OFFICE/OUTPATIENT ESTABLISHED SF MDM 10-19 MIN OFFICE/OUTPATIENT ESTABLISHED LOW MDM 20-29 MIN OFFICE/OUTPATIENT ESTABLISHED MOD MDM 30-39 MIN OFFICE/OUTPATIENT ESTABLISHED HIGH MDM 40-54 MIN RI EST COPD Jasmin Avendano MD [address] [place] [place] [address] Miladis Foster PA-C [address] [place] [address] Referral ID Status Reason Start Date Expiration Date Visits Re quested Visits Authorized [id number] Closed 02/05/2023 11/02/2023 1 1 Reason Comments Follow Up Specialty Diagnoses / Procedures Referred By Ora t [facility]oses COPD (chronic obstructive pulmonary disease) (HCC) COPD Procedures EST PATIENT VISIT LEVEL 5 [facility] [address] [place] [address] Referral ID Status Reason Start Date Expiration Date V isits Requested Visits Authorized [id number] Closed OON/Self Pay Override 12/27/2019 11/02/2020 99 99 Specialty Diagnoses / Procedures Referred By Ora t Referred To Contact Radiology / RADIO [facility] Diagnoses Chronic obstructive pulmonary disease, unspecified COPD type (HCC) [J44.9] Chronic diastolic congestive heart failure (HCC) [I50.32] Procedures XR CHEST Emerson Calvo MD [address] [place] [address] Radio [facility] [address] [address] Referral ID Status Reason Start Date Expiration Date Visits Re quested Visits Authorized [id number] Closed 01/28/2022 04/28/2022 1 1 Reason Comments Results NT pro BNP Reason Comments Spirometry Specialty Diagnoses / Procedures Referred By Ora t Referred To Contact [facility] Diagnoses Chronic obstructive pulmonary disease, unspecified COPD type (HCC) Chronic diastolic congestive heart failure (HCC) Procedures OXIMETRY WITH AMBULATION NONINVASIVE EAR/PULSE OXIMETRY MULTIPLE DETER Emerson Calvo MD [address] [place] [address] [address] Referral ID Status Reason Start Date Expiration Date V isits Requested Visits Authorized [id number] Closed Auto-Generate d Referral 01/28/2022 11/02/2022 1 1 Reason Comments Established Patient Reason Comments Patient Question Reason Onset Date Comments Refill Request 02/27/2022 Reason Comments Refill Request Reason Comments Follow Up 2 month Reason Onset Date Comments Refill Request 04/17/2022 Reason Onset Date Comments Refill Request 04/22/2022 Reason Comments Established Patient COPD follow up Specialty Diagnoses / Procedures Referred By Contac t Referred To [facility] Pulmonary and Critical Care Medicine / PULMONARY MEDICINE Diagnoses Follow-up exam F/U per LEE Procedures OFFICE/OUTPATIENT ESTABLISHED HIGH MDM 40-54 MIN RI EST PULM GENERAL Ady Ignacio MD [address] [place] [address] Miladis Foster, PACassiusC [address] [address] Referral ID Status Reason Start Date Expiration Date Visits Re quested Visits Authorized [id number] Closed 05/24/2022 11/02/2022 1 1 Reason Comments zio patch Reason Onset Date Comments Refill Request 07/17/2022 Reason Onset Date Comments Refill Request 07/18/2022 Reason Onset Date Comments Refill Request 08/09/2022 Reason Comments Patient Update Reason Comments Established Patient Follow-Up Specialty Diagnoses / Procedures Referred By Contac t Referred To [facility]ATORY [place] Diagnoses Stage 2 moderate COPD by GOLD classification ([facility]) Procedures SPIROMETRY BASELINE ONLY SPMTRY W/VC EXPIRATORY XIOMARA W/WO MXML VOL VNTJ Miladis Foster PA-C [address] [place] [address] [address] Referral ID Status Reason Start Date Expiration Date V isits Requested Visits Authorized [id number] Closed Auto-Generate d Referral 08/12/2022 11/02/2022 1 1 Specialty Diagnoses / Procedures Referred By Contac t Referred To [facility] Diagnoses Stage 2 moderate COPD by GOLD classification (HCC) Chronic hypoxemic respiratory failure (HCC) Procedures LUNG DIFFUSION CAPACITY ([facility]) DIFFUSING CAPACITY Miladis Foster PA-C [address] [place] [address] Respiratory [place] [address] [place] [address] Referral ID Status Reason Start Date Expiration Date V isits Requested Visits Authorized [id number] Closed Auto-Generate d Referral 08/12/2022 11/02/2022 1 1 Reason Onset Date Comments Established Patient COPD Immunizations 08/30/2022 Flu vaccination Specialty Diagnoses / Procedures Referred By Contac t Referred To Contact Pulmonary and Critical Care Medicine / PULMONARY MEDICINE Diagnoses Lung Diffusion / Stevie / 3 month F/U Procedures RI EST COPD Jasmin Avendano MD [address] [address] Jasmin Avendano MD [address] [place] [address] Referral ID Status Reason Start Date Expiration Date Visits Re quested Visits Authorized [id number] Closed 08/30/2022 11/28/2022 1 1 Reason Onset Date Comments Refill Request 10/14/2022 Reason Comments F/U 6 months Reason Onset Date Comments Refill Request 11/26/2022 Reason Onset Date Comments Refill Request 12/03/2022 Reason Onset Date Comments Refill Request 01/13/2023 Reason Comments Follow Up 6 mo Reason Comments Established Patient 6 month follow up [place] PD Reason Comments Recheck 6 months Reason Onset Date Comments Refill Request 05/07/2023 Reason Onset Date Comments Refill Request 07/21/2023 Reason Onset Date Comments Refill Request 09/08/2023 Reason Comments Rx Refills albuterol HFA (CHINA ELYS HFA) 90 mcg/actuation inhaler Reason Comments Recheck Reason Comments New Patient Evaluation Care Teams (unrecognized sec tion and content) Eligibility Examiner Relationship Specialty Start Date End Date Ady Ignacio MD [address] [place], [place] [id number] PCP - General Internal Medicine 02/07/15 Valentino, [place] S [address] [place] [address] Physician Cardiology 03/02/19 Eligibility Examiner Relationship Specialty Start Date End Date Ady Ignacio MD [address] [place] [address] PCP - General Internal Medicine 02/07/15 Valentino, [place] S [address] [place] [address] Physician Cardiology 03/02/19 Eligibility Examiner Relationship Specialty Start Date End Date Ady Ignacio MD [address] [place] [address] PCP - General Internal Medicine 02/07/15 Valentino, [place] S [address] [place] [address] Physician Cardiology 03/02/19 Eligibility Examiner Relationship Specialty Start Date End Date Ady Ignacio MD [address] [place] [address] PCP - General Internal Medicine 02/07/15 Valentino, George S [address] [place] [address] Physician Cardiology 03/02/19 Eligibility Examiner Relationship Specialty Start Date End Date Ady Ignacio MD [address] [place] [address] PCP - General Internal Medicine 02/07/15 Valentino, [place] S [address] [place] [address] Physician Cardiology 03/02/19 Eligibility Examiner Relationship Specialty Start Date End Date Ady Ignacio MD [address] [place] [address] PCP - General Internal Medicine 02/07/15 Valentino, [place] S [address] [place] [address] Physician Cardiology 03/02/19 Eligibility Examiner Relationship Specialty Start Date End Date Ady Ignacio MD [address] [place] [address] PCP - General Internal Medicine 02/07/15 Valentino, George S [address] [place] [address] Physician Cardiology 03/02/19 Eligibility Examiner Relationship Specialty Start Date End Date Ady Ignacio MD [address] [place] [address] PCP - General Internal Medicine 02/07/15 Valentino, [place] S [address] [place] [address] Physician Cardiology 03/02/19 Eligibility Examiner Relationship Specialty Start Date End Date Ady Ignacio MD [address] [place] [address] PCP - General Internal Medicine 02/07/15 Valentino, [place] S [address] [place] [address] Physician Cardiology 03/02/19 Eligibility Examiner Relationship Specialty Start Date End Date Ady Ignaico MD [address] [place] [address] PCP - General Internal Medicine 02/07/15 Valentino, [place] S [address] [place] [address] Physician Cardiology 03/02/19 Eligibility Examiner Relationship Specialty Start Date End Date Ady Ignacio MD [address] [place] [address] PCP - General Internal Medicine 02/07/15 Valentino, [place] S [address] [place] [address] Physician Cardiology 03/02/19 Eligibility Examiner Relationship Specialty Start Date End Date Ady Ignacio MD [address] [place] [address] PCP - General Internal Medicine 02/07/15 Valentino, [place] S [address] [place] [address] Physician Cardiology 03/02/19 Eligibility Examiner Relationship Specialty Start Date End Date Ady Ignacio MD [address] [place] [address] PCP - General Internal Medicine 02/07/15 Valentino, [place] S [address] [place] [address] Physician Cardiology 03/02/19 Eligibility Examiner Relationship Specialty Start Date End Date Ady Ignacio MD [address] [facility] [place] [id number] PCP - General Internal Medicine 02/07/15 Valentino, George S [address] [place] [address] Physician Cardiology 03/02/19 Eligibility Examiner Relationship Specialty Start Date End Date Ady Ignacio MD [address] [place] [address] PCP - General Internal Medicine 02/07/15 Valentino, George S [address] [place] [address] Physician Cardiology 03/02/19 Eligibility Examiner Relationship Specialty Start Date End Date Ady Ignacio MD [address] [place] [address] PCP - General Internal Medicine 02/07/15 Valentino, George S [address] [place] [address] Physician Cardiology 03/02/19 Eligibility Examiner Relationship Specialty Start Date End Date Ady Ignacio MD [address] [place] [address] PCP - General Internal Medicine 02/07/15 Valentino, [place] S [address] [place] [address] Physician Cardiology 03/02/19 Eligibility Examiner Relationship Specialty Start Date End Date Ady Ignacio MD [address] [place] [address] PCP - General Internal Medicine 02/07/15 Valentino, [place] S [address] [place] [address] Physician Cardiology 03/02/19 Eligibility Examiner Relationship Specialty Start Date End Date Ady Ignacio MD [address] [place] [address] PCP - General Internal Medicine 02/07/15 Valentino, George S [address] [place] [address] Physician Cardiology 03/02/19 Eligibility Examiner Relationship Specialty Start Date End Date Abril Salas MD [address] [place] [address] PCP - General Internal Medicine 12/03/22 Valentino, [place] S [address] [place] [address] Physician Cardiology 03/02/19 Eligibility Examiner Relationship Specialty Start Date End Date Abril Salas MD [address] [place] [address] PCP - General Internal Medicine 12/03/22 Valentino, George S [address] [place] [address] Physician Cardiology 03/02/19 Eligibility Examiner Relationship Specialty Start Date End Date Abril Salas MD [address] [place] [address] PCP - General Internal Medicine 12/03/22 Valentino, George S [address] [place] [address] Physician Cardiology 03/02/19 Eligibility Examiner Relationship Specialty Start Date End Date Abril Salas MD [address] [place] [address] PCP - General Internal Medicine 12/03/22 Valentino, [place] S [address] [place] [address] Physician Cardiology 03/02/19 Eligibility Examiner Relationship Specialty Start Date End Date Abril Salas MD [address] [place] [address] PCP - General Internal Medicine 12/03/22 Valentino, [place] S [address] [place] [address] Physician Cardiology 03/02/19 Eligibility Examiner Relationship Specialty Start Date End Date Abril Salas MD [address] [place] [address] PCP - General Internal Medicine 12/03/22 George Avelar [address] [address] Physician Cardiology 03/02/19 Eligibility Examiner Relationship Specialty Start Date End Date Abril Salas MD [address] [place] [address] PCP - General Internal Medicine 12/03/22 George Avelar MD [address] [address] Physician Cardiology 03/02/19 Eligibility Examiner Relationship Specialty Start Date End Date Abril Salas MD [address] [place] [address] PCP - General Internal Medicine 12/03/22 George Avelar MD [address] [address] Physician Cardiology 03/02/19 Eligibility Examiner Relationship Specialty Start Date End Date Abril Salas MD [address] [place] [address] PCP - General Internal Medicine 12/03/22 George Avelar MD [address] [address] Physician Cardiology 03/02/19 Eligibility Examiner Relationship Specialty Start Date End Date Abril Saals MD [address] [place], [place] [address] PCP - General Internal Medicine 12/03/22 George Avelar MD [address] [place] [address] Physician Cardiology 03/02/19 Eligibility Examiner Relationship Specialty Start Date End Date Abril Salas MD [address] [place], [place] [address] PCP - General Internal Medicine 12/03/22 George Avelar MD [address] [address] Physician Cardiology 03/02/19 Eligibility Examiner Relationship Specialty Start Date End Date Abril Salas MD [address] [place], [place] [address] PCP - General Internal Medicine 12/03/22 George Avelar MD [address] [address] Physician Cardiology 03/02/19 Eligibility Examiner Relationship Specialty Start Date End Date Abril Salas MD [address] [place] [address] PCP - General Internal Medicine 12/03/22 George Avelar MD [address] [address] Physician Cardiology 03/02/19 FOR RECORDS PERTAINING TO PATIENTS WHO ARE OR HAVE BEEN ENROLLED IN A CHEMICAL DEPENDENCY/SUBSTANCEABUSE PROGRAM, SOME INFORMATION MAY BE OMITTED. This clinical summary was aggregated from multiple sources. Caution should be exercised in using it in the provision of clinical care. This summary normalizes information from multiple sources, and as a consequence, information in this document may materially change the coding, format and clinical context of patient data. In addition, data may be omitted in some cases. CLINICAL DECISIONS SHOULD BE BASED ON THE PRIMARY CLINICAL RECORDS. [facility]. provides no warranty or guarantee of the accuracy or completeness of information in this document.
--- OUTSIDE RECORDS SUMMARY | 2023-12-25 19:34 | XMS RPT_ITS | CCD ---
Author Name Unknown Address [address] [place] [address] Organization [facility] Care Team Providers Care Packaging Mechanic Name Role Phone TYLER MOREL Unavailable Unavailable TYLER MOREL Unavailable Unavailable Ady Ignacio Unavailable Unavailable TYLER MOREL Unavailable Unavailable TYLER MOREL Unavailable Unavailable Ady Ignacio Unavailable Unavailable SELF, SELF Referring Unavailable Ady Ignacio MD Primary Care Provider Valentino, George S Unavailable Ady Ignacio MD Primary Care Provider Valentino, Florence S Unavailable Valentino, George S Unavailable Ady Ignacio MD Primary Care Provider Valentino, George S Unavailable Abril Salas MD Primary Care Provider Valentino, Florence S Unavailable Valentino MOSQUEDA Florence S Unavailable TALAMPAS, ABRIL D Primary Care [...] acetaminophen; Translations: [ACETAMINOPHEN] Drug Allergy 7 Intolerance [facility] Repository (20 sources) albuterol; Translations: [ALBUTEROL SULFATE] Drug Allergy 2 Other: See Comments [facility] Repository (20 sources) aspirin; Translations: [ASPIRIN] Drug Allergy 7 [facility] Repository (20 sources) iodine; Translations: [IODINE] Drug Allergy 6 [facility] Repository (20 sources) nabumetone; Translations: [NABUMETONE] Drug Allergy 7 Intolerance [facility] Repository (20 sources) pregabalin; Translations: [PREGABALIN] Drug Allergy 1 Swelling [facility] Repository Medications Current Medications Medication [...] Drug Class(es) Dates Sig (Normalized) Sig (Original) [id number] 200 actuat albuterol 0.09 mg/actuat metered dose inhaler (20 sources) beta2-Adrenergic Agonist Start: 02-28-2023 End: 09-11-2023 take 2 puff(s) by inhalation every six hours as needed for wheezing albuterol HFA (VENTOLIN HFA) 90 mcg/actuation inhaler Indications: Stage 2 moderate COPD by GOLD classification ([facility]) Inhale 2 Puffs as instructed every 6 [...] Coronary atherosclerosis; Translations: [Atherosclerotic heart disease of [place] coronary artery without angina pectoris] Onset: 11-13-2007 [...] (1 source) Patient encounter status; Translations: [Other oysterman (current) drug therapy] Episodic Other connective tissue [...] 55.79 kg Mia Haywood PA-C Work Phone: [facility] 12-10-2023 09:21-0500 Diastolic blood pressure 76 mm[Hg] Mia Haywood PA-C Work Phone: [facility] 12-10-2023 09:21-0500 Heart rate 68 /min Mia Haywood PA-C Work Phone: [facility] 12-10-2023 09:21-0500 Respiratory rate 18 /min Mia Haywood PA-C Work Phone: [facility] 12-10-2023 09:21-0500 SaO2% (BldA) [Mass fraction] 97 % Mia Haywood PA-C Work Phone: [facility] 12-10-2023 09:21-0500 Systolic blood pressure 140 mm[Hg] Mia Haywood PA-C Work Phone: [facility] 09-16-2023 09:01-0500 Body weight 55.79 kg Anna Dilma REGULATORY ANALYST.INTERNATIONAL TRADE ANALYST Work Phone: [facility] 09-16-2023 09:01-0500 Diastolic blood pressure 44 mm[Hg] Anna Dilma REGULATORY ANALYST.INTERNATIONAL TRADE ANALYST Work Phone: [facility] 09-16-2023 09:01-0500 Heart rate 70 /min Anna Dilma REGULATORY ANALYST.INTERNATIONAL TRADE ANALYST Work Phone: [facility] 09-16-2023 09:01-0500 SaO2% (BldA) [Mass fraction] 95 % Anna Dilma REGULATORY ANALYST.INTERNATIONAL TRADE ANALYST Work Phone: [facility] 09-16-2023 09:01-0500 Systolic blood pressure 110 mm[Hg] Anna Dilma REGULATORY ANALYST.INTERNATIONAL TRADE ANALYST Work Phone: [facility] 09-15-2023 10:06-0500 Body weight 55.79 kg Emilie Corral MD Work Phone: [facility] 09-15-2023 10:06-0500 Diastolic blood pressure 77 mm[Hg] Emilie Corral MD Work Phone: [facility] 09-15-2023 10:06-0500 Heart rate 77 /min Emilie Corral MD Work Phone: [facility] 09-15-2023 10:06-0500 Respiratory rate 16 /min Emilie Corral MD Work Phone: [facility] 09-15-2023 10:06-0500 SaO2% (BldA) [Mass fraction] 92 % Emilie Corral MD Work Phone: [facility] 09-15-2023 10:06-0500 Systolic blood pressure 148 mm[Hg] Emilie Corral MD Work Phone: [facility] 09-01-2023 09:20-0400 Body weight 55.79 kg Jasmin Avendano MD Work Phone: [facility] 09-01-2023 09:20-0400 Diastolic blood pressure 66 mm[Hg] Jasmin Avendano MD Work Phone: [facility] 09-01-2023 09:20-0400 Heart rate 62 /min Jasmin Avendano MD Work Phone: [facility] 09-01-2023 09:20-0400 Respiratory rate 16 /min Jasmin Avendano MD Work Phone: [facility] 09-01-2023 09:20-0400 SaO2% (BldA) [Mass fraction] 93 % Jasmin Avendano MD Work Phone: [facility] 09-01-2023 09:20-0400 Systolic blood pressure 112 mm[Hg] Jasmin Avendano MD Work Phone: [facility] 03-14-2023 08:44-0400 Body weight 56.7 kg Abril Salas MD Work Phone: [facility] 03-14-2023 08:44-0400 Diastolic blood pressure 68 mm[Hg] Abril Salas MD Work Phone: [facility] 03-14-2023 08:44-0400 Heart rate 64 /min Abril Salas MD Work Phone: [facility] 03-14-2023 08:44-0400 Respiratory rate 14 /min Abril Salas MD Work Phone: [facility] 03-14-2023 08:44-0400 Systolic blood pressure 124 mm[Hg] Abril Salas MD Work Phone: [facility] 02-28-2023 08:50-0400 Body weight 55.79 kg Miladis Karissa PA-C Work Phone: [facility] 02-28-2023 08:50-0400 Heart rate 64 /min Miladis Karissa PA-C Work Phone: [facility] 02-28-2023 08:50-0400 Respiratory rate 14 /min Miladis Karissa PA-C Work Phone: [facility] 02-28-2023 08:50-0400 SaO2% (BldA) [Mass fraction] 92 % Miladis Karissa PA-C Work Phone: [facility] 02-17-2023 13:44-0400 Body weight 57.61 kg Emilie Corral MD Work Phone: [facility] 02-17-2023 13:44-0400 Diastolic blood pressure 60 mm[Hg] Emilie Corral MD Work Phone: [facility] 02-17-2023 13:44-0400 Heart rate 70 /min Emilie Corral MD Work Phone: [facility] 02-17-2023 13:44-0400 Systolic blood pressure 132 mm[Hg] Emilie Corral MD Work Phone: [facility] 09-25-2022 11:05-0500 Body weight 56.7 kg Abril Salas MD Work Phone: [facility] 09-25-2022 11:05-0500 Diastolic blood pressure 70 mm[Hg] Abril Salas MD Work Phone: [facility] 09-25-2022 11:05-0500 Heart rate 79 /min Abril Salas MD Work Phone: [facility] 09-25-2022 11:05-0500 SaO2% (BldA) [Mass fraction] 95 % Abril Salas MD Work Phone: [facility] 09-25-2022 11:05-0500 Systolic blood pressure 128 mm[Hg] Abril Salas MD Work Phone: [facility] 08-30-2022 09:13-0400 Body height 149.9 cm Jasmin Avendano MD Work Phone: [facility] 08-30-2022 09:13-0400 Body weight 57.15 kg Jasmin Avendano MD Work Phone: [facility] 08-30-2022 09:13-0400 Diastolic blood pressure 60 mm[Hg] Jasmin Avendano MD Work Phone: [facility] 08-30-2022 09:13-0400 Heart rate 64 /min Jasmin Avendano MD Work Phone: [facility] 08-30-2022 09:13-0400 Respiratory rate 14 /min Jasmin Avendano MD Work Phone: [facility] 08-30-2022 09:13-0400 SaO2% (BldA) [Mass fraction] 98 % Jasmin Avendano MD Work Phone: [facility] 08-30-2022 09:13-0400 Systolic blood pressure 122 mm[Hg] Jasmin Avendano MD Work Phone: [facility] 08-30-2022 09:09-0400 Body height 149.9 cm Respiratory Wstr Work Phone: [facility] 08-30-2022 09:09-0400 Body weight 57.15 kg Respiratory Wstr Work Phone: [facility] 08-30-2022 09:09-0400 Heart rate 64 /min Respiratory Wstr Work Phone: [facility] 08-30-2022 09:09-0400 Respiratory rate 14 /min Respiratory Wstr Work Phone: [facility] 08-30-2022 09:09-0400 SaO2% (BldA) [Mass fraction] 98 % Respiratory Wstr Work Phone: [facility] 08-19-2022 11:20-0400 Body weight 56.7 kg Emilie Corral MD Work Phone: [facility] 08-19-2022 11:20-0400 Diastolic blood pressure 60 mm[Hg] Emilie Corral MD Work Phone: [facility] 08-19-2022 11:20-0400 Heart rate 68 /min Emilie Corral MD Work Phone: [facility] 08-19-2022 11:20-0400 Systolic blood pressure 124 mm[Hg] Emilie Corral MD Work Phone: [facility] 05-30-2022 08:57-0400 Body weight 57.61 kg Miladis Karissa PA-C Work Phone: [facility] 05-30-2022 08:57-0400 Diastolic blood pressure 64 mm[Hg] Miladis Karissa PA-C Work Phone: [facility] 05-30-2022 08:57-0400 Heart rate 60 /min Miladis Karissa PA-C Work Phone: [facility] 05-30-2022 08:57-0400 Respiratory rate 17 /min Miladis Karissa PA-C Work Phone: [facility] 05-30-2022 08:57-0400 SaO2% (BldA) [Mass fraction] 94 % Miladis Karissa PA-C Work Phone: [facility] 05-30-2022 08:57-0400 Systolic blood pressure 102 mm[Hg] Miladis Karissa PA-C Work Phone: [facility] 03-29-2022 08:39-0400 Body weight 53.98 kg Ady Ignacio MD Work Phone: [facility] 03-29-2022 08:39-0400 Diastolic blood pressure 58 mm[Hg] Ady Ignacio MD Work Phone: [facility] 03-29-2022 08:39-0400 Heart rate 57 /min Ady Ignacio MD Work Phone: [facility] 03-29-2022 08:39-0400 Respiratory rate 16 /min Ady Ignacio MD Work Phone: [facility] 03-29-2022 08:39-0400 SaO2% (BldA) [Mass fraction] 97 % Ady Ignacio MD Work Phone: [facility] 03-29-2022 08:39-0400 Systolic blood pressure 122 mm[Hg] Ady Ignacio MD Work Phone: [facility] 02-11-2022 15:16-0400 Body weight 55.34 kg Leonel Paniagua MD Work Phone: [facility] 02-11-2022 15:16-0400 Diastolic blood pressure 60 mm[Hg] Leonel Paniagua MD Work Phone: [facility] 02-11-2022 15:16-0400 Heart rate 72 /min Leonel Paniagua MD Work Phone: [facility] 02-11-2022 15:16-0400 Systolic blood pressure 120 mm[Hg] Leonel Paniagua MD Work Phone: [facility] 02-01-2022 13:48-0400 Body weight 55.7 kg Respiratory Wstr Work Phone: [facility] 01-28-2022 08:32-0400 Body temperature 99.39 [degF] Emerson Calvo MD Work Phone: [facility] 01-28-2022 08:32-0400 Body weight 54.61 kg Emerson Calvo MD Work Phone: [facility] 01-28-2022 08:32-0400 Diastolic blood pressure 76 mm[Hg] Emerson Calvo MD Work Phone: [facility] 01-28-2022 08:32-0400 Heart rate 76 /min Emerson Calvo MD Work Phone: [facility] 01-28-2022 08:32-0400 Respiratory rate 16 /min Emerson Calvo MD Work Phone: [facility] 01-28-2022 08:32-0400 SaO2% (BldA) [Mass fraction] 88 % Emerson Calvo MD Work Phone: [facility] 01-28-2022 08:32-0400 Systolic blood pressure 146 mm[Hg] Emerson Calvo MD Work Phone: [facility] Encounters Encounter Date Encounter Type Care Provider [...] Detail Author Start: 04-05-2025 Urine microalbumin profile [facility] Start: 09-08-2024 Hepatitis B screening Urine Al bumin:Creatinine Ratio [facility] Start: 09-08-2024 Hepatitis B surface antibody level LDL Cholesterol [facility] Start: 06-19-2024 Glaucoma screening Dilated Retinal E xam [facility] Start: 06-19-2024 Hepatitis C antibody , confirmatory test Dilated Retinal Exam [facility] Start: 03-14-2024 3 comp foot exam completed DIABETIC FOOT EXAM [facility] Start: 03-14-2024 COVID-19 VACCINE (3 - Booster for Pfizer series) COVID-19 VACCINE (3 - Booster for Pfizer series) [facility] Immunizations Immunization Date Immunization Notes Care Provider Fa sangeeta 09-01-2023 influenza (HD-IIV4) vaccine, age 65+ yr, high dose, quadrivalent, PF (FLUZONE HIGH-DOSE) Jasmin Avendano MD Work Phone: [facility] 08-30-2022 influenza, high-dose , quadrivalent vaccine (FLUZONE HIGH DOSE QUADRIVALENT) Respiratory Wstr Work Phone: [facility] 08-30-2022 influenza virus vaccine, unspecified formulation Abril Salas MD Work Phone: [facility] 07-17-2021 influenza, high-dose , quadrivalent vaccine (FLUZONE HIGH DOSE QUADRIVALENT) Emerson Calvo MD Work Phone: [facility] Work Phone: 12-25-2020 COVID-19 vaccine, ag e 12+ yr (PFIZER-BIONTECH - PURPLE TOP) Emerson Calvo MD Work Phone: [facility] Work Phone: 11-27-2020 COVID-19 vaccine, ag e 12+ yr (PFIZER-BIONTECH - PURPLE TOP) Emerson Calvo MD Work Phone: [facility] Work Phone: 07-13-2020 influenza, high-dose , quadrivalent vaccine (FLUZONE HIGH DOSE QUADRIVALENT) Emerson Calvo MD Work Phone: [facility] Work Phone: 09-06-2019 influenza, high dose seasonal, preservative-free Emerson Calvo MD Work Phone: [facility] Work Phone: 09-03-2018 influenza, high dose seasonal, preservative-free Emerson Calvo MD Work Phone: [facility] 08-15-2017 influenza, high dose seasonal, preservative-free Emerson Calvo MD Work Phone: [facility] 09-17-2016 influenza, high dose seasonal, preservative-free Emerson Calvo MD Work Phone: [facility] 08-24-2015 influenza, high dose seasonal, preservative-free Emerson Calvo MD Work Phone: [facility] 04-05-2015 tetanus and diphther ia toxoids, adsorbed, preservative free, for adult use (5 Lf of tetanus toxoid and 2 Lf of diphtheria toxoid) Emerson Calvo MD Work Phone: [facility] 01-03-2015 pneumococcal conjuga te vaccine, 13 valent Emerson Calvo MD Work Phone: [facility] 08-20-2013 influenza virus vaccine, unspecified formulation Emerson Calvo MD Work Phone: [facility] 09-12-2012 influenza virus vaccine, unspecified formulation Emerson Calvo MD Work Phone: [facility] Work Phone: 09-14-2011 influenza virus vaccine, unspecified formulation Emerson Calvo MD Work Phone: [facility] Work Phone: 08-03-2011 pneumococcal Conjuga te, unspecified formulation Anna Perera APRN.CNP Work Phone: [facility] Work Phone: 08-03-2011 pneumococcal vaccine , unspecified formulation Ady Ignacio MD Work Phone: [facility] Work Phone: 08-14-2010 influenza virus vaccine, unspecified formulation Emerson Calvo MD Work Phone: [facility] 07-28-2009 influenza virus vaccine, unspecified formulation Emerson Calvo MD Work Phone: [facility] 09-16-2008 influenza virus vaccine, unspecified formulation Emerson Calvo MD Work Phone: [facility] Work Phone: 10-01-2007 influenza virus vaccine, unspecified formulation Emerson Calvo MD Work Phone: [facility] Work Phone: 09-18-2006 influenza virus vaccine, unspecified formulation Emerson Calvo MD Work Phone: [facility] 09-12-2005 influenza virus vaccine, unspecified formulation Emerson Calvo MD Work Phone: [facility] Work Phone: 09-01-2003 pneumococcal polysaccharide vaccine, 23 valent Emerson Calvo MD Work Phone: [facility] Work Phone: 12-02-2002 diphtheria and tetan us toxoids, adsorbed for pediatric use Emerson Calvo MD Work Phone: [facility] Work Phone: Payers Date Payer Category Payer Self-pay [id number] 2005 Medicare [employer] [place] [facility] [place] [id number] 2005-Present [phone] [facility] [place] [address] [facility] [id number] 2005 Medicare [employer] [place] [facility] [place] [facility] [id number] 2005-Present [phone] [facility] [place] [address] [facility] [id number] 2005 Unknown [id number] 1935 Unknown [id number] Social History Date Type Detail Facility Start: 06-12-2017 End: 08-19-2022 Tobacco smoking status NHIS Ex-smoker [facility] Start: 11-03-1968 End: 11-03-1999 History of tobacco use Current smoker [facility] Start: 11-03-1968 End: 11-03-1999 History of tobacco use Cigarette Smoker [facility] Start: 01-28-2022 End: 12-10-2023 Alcohol intake Current non-drinker of alcohol (finding) [facility] Start: 11-14-2021 End: 03-11-2023 History SDOH Alcohol Frequency 1 [facility] Start: 11-14-2021 History SDOH Alcohol Std Drinks 98 [facility] Start: 11-14-2021 End: 03-11-2023 History SDOH Social Connections Phone 5 [facility] Start: 11-14-2021 End: 03-11-2023 History SDOH Social Connections Membership 2 [facility] Start: 11-14-2021 End: 03-11-2023 History SDOH Social Connections Living 4 [facility] Start: 11-14-2021 End: 03-11-2023 History SDOH Physical Activity DPW 0 [facility] Start: 07-12-2020 Education 10 [facility] Start: 1935 Sex Assigned At Not on file C [facility] Start: 01-18-2022 End: 09-25-2022 Exposure to SARS-CoV-2 (event) Not sure [facility] Start: 06-12-2017 End: 03-11-2023 Cigarettes smoked current (pack per day) - Reported 1.3 [facility] Start: 06-12-2017 End: 08-19-2022 Tobacco use and exposure Smokeless tobacco non-user [facility] Work Phone: Start: 03-11-2023 End: 12-06-2023 Social connection and isolation panel [facility] Do you belong to any clubs or organizations such as rastafari groups, unions, fraternal or athletic groups, or school groups? No [facility] Are you now , , , , never or living with a partner? [facility] How often to you hav e a drink containing alcohol? Never [facility] How many standard dr inks containing alcohol do you have on a typical day? Patient does not drink [facility] Do you feel stress - tense, restless, nervous, or anxious, or unable to sleep at night because your mind is troubled all the time - these days [OSQ] Very much [facility] (I/We) worried wheth er (my/our) food would run out before (I/we) got money to buy more. Never true [facility] Medical Equipment Procedure Code Equipment Code Equipment Origin al Text Equipment Identifier Dates Start: 11-07-2017 End: 05-07-2023 Clinical Notes 05-04-2021 to 12-11-2023 Telephone Encounter - Rose Kearns MSW - 12/11/2023 12:16 PM ESTPatient Mia Sauer PA-C - 12/10/2023 9:22 AM ESTAnna Perera APRN.INTERNATIONAL TRADE ANALYST - 09/16/2023 9:03 AM EST Note Date & Type Note Facility 12-11-2023 Miscellaneous Notes Rigo spoke with patient daughter and reviewed [facility] [employer] services ie. Passport/Caregiver Support, Resource dept. Discussed different home delivered meal and medical alert buttons. Discussed [facility] as their website offers Older Adult Resource guide. Patient daughter has direct number for any other questions. Katherin notes that she will see if she can talk to patient about having [facility] come to the home for assessment to see if patient should qualify for any of their home care supportive services. documented in this encounter [facility] 12-10-2023 Note HNO ID: [id number] Author: MIA HAYWOOD PA-C Service: ? Author Type: Physician Manager Sign Type: Progress Notes Filed: 12/10/2023 16:33 Note Text: Neurology Outpatient Clinic Date: December 10, 2023 Patient Name: Kyle Arroyo Referring physician: No referring provider defined for this encounter. Primary physician: Abril Salas [address] [place] [address] Reason for Evaluation: memory loss Subjective HPI [...] spray Use 2 (more content not included)... [facility] 12-10-2023 Instructions Mia Haywood PA-C - 12/10/2023 10:08 AM EST MRI of the brain to look at the memory centers of the brain Laboratory studies Follow up after testing in 2-3 months documented in this encounter [facility] 12-10-2023 History of Present illness Narrative Images from the original note were not included. Neurology Outpatient Clinic Date: December 10, 2023 Patient Name: Kyle Arroyo Referring physician: No referring provider defined for this encounter. Primary physician: Abril Salas [address] [place] [address] Reason for Evaluation: memory loss Subjective HPI [...] (PRESERVISION ORAL) Take by mouth twice daily. Nycmzflnhawgp-Fcwctssr-Owrdtb (CENTRUM SILVER) tab Take 1 tablet by [...] of chronic renal failure, stage 3 (moderate) ([facility]) ([facility]) 09/01/2020 Arrhythmia BENIGN NEOPLASM LG BOWEL 08/21/2007 Adenomatous polyp removed from Sigmoid in 1992 Colonoscopy 06-15-07 (sister with colon ca): left sided tics with no polyps or masses CHF (congestive heart failure) ([facility]) Chronic airway obstruction, not elsewhere classified Chronic bronchitis. CKD (chronic kidney disease) stage 3, GFR 30-59 ml/min ([facility]) 08/27/2017 Closed Colles' fracture of left radius 02/27/2017 Coronary artery disease Diverticulosis of colon (without mention of hemorrhage) DM Neuro Manif Type II 03/20/2010 Esophageal reflux 08/21/2007 Hallux valgus (acquired) 03/20/2010 MACULAR DEGENERATION NOS 11/24/2007 [facility] 10-21-07: L eye with MD s/p cataract extraction-stable [facility] 12-11: L eye YAG capsulotomy after cataract extraction 11-23-07, 20/40 R, count fingers L Oropharyngeal dysphagia 09/13/2015 Honey thickened liquids. Osteopenia Osteopenia of multiple sites (Clinical osteoporosis) 03/11/2017 Other and unspecified hyperlipidemia Other psoriasis and similar disorders Psoriasis PAD (peripheral artery disease) ([facility]) both lower extremities. 06/02/2018 Dr. Jose Luis Marie, Vascular Surgery Peripheral sensory neuropathy due to type 2 diabetes mellitus ([facility]) 01/15/2016 Restless legs syndrome (RLS) 08/21/2007 Unspecified [...] hull Coordination: finger-to- nose-finger intact bilaterally and [id number] intact bilaterally. Gait: Gait is wide-based, walks [...] to 3 years ago with gradual progression, [place] today was 8/30. Patient does have hearing [...] which included preparing to see the patient, [id number] patient care, completing clinical documentation, obtaining and/or reviewing separately obtained history, performing a medically appropriate examination, counseling and educating the patient/family/caregiver, and ordering medications, tests, or procedures. Mia Haywood PA-C [facility] Neurology This document has been created with [...] at 1632 Patient's family wrote in with [employer] message stating that patient lives alone just up the road from them, but they are concerned about safety. Offered social work consult, response pending. Mia Haywood PA-C documented in this encounter [facility] 11-27-2023 Note HNO ID: [id number] Author: ADONIS GIBSON, ? Service: ? Author [...] of chronic renal failure, stage 3 (moderate) ([facility]) ([facility]) 09/01/2020 Arrhythmia BENIGN NEOPLASM LG BOWEL 08/21/2007 Adenomatous polyp removed from Sigmoid in 1992 Colonoscopy 06-15-07 (sister with colon ca): left sided tics with no polyps or masses CHF (congestive heart failure) ([facility]) Chronic airway obstruction, not elsewhere classified Chronic bronchitis. CKD (chronic kidney disease) stage 3, GFR 30-59 ml/min ([facility]) 08/27/2017 Closed Colles' fracture of left radius 02/27/2017 Coronary artery disease Diverticulosis of colon (without mention of hemorrhage) DM Neuro Manif Type II 03/20/2010 Esophageal reflux 08/21/2007 Hallux valgus (acquired) 03/20/2010 MACULAR DEGENERATION NOS 11/24/2007 [facility] 10-21-07: L eye with MD s/p cataract extraction-[facility] 2-08: L eye YAG capsulotomy after cataract extraction 11-23-07, 20/40 R, count fingers L Oropharyngeal dysphagia 09/13/2015 Honey thickened liquids. Osteopenia Osteopenia of multiple sites (Clinical osteoporosis) 03/11/2017 Other and unspecified hyperlipidemia Other psoriasis and similar disorders Psoriasis PAD (peripheral artery disease) ([facility]) both lower extremities. 06/02/2018 Dr. Jose Luis Marie, Vascular Surgery Peripheral sensory neuropathy due to type 2 diabetes mellitus ([facility]) 01/15/2016 Restless legs syndrome (RLS) 08/21/2007 Unspecified [...] by mouth twice daily. blood sugar diagnostic (FublesTOUCH ULTRA TEST) test strip Test blood sugar [...] (PRESERVISION ORAL) Take by mouth twice daily. Fmtleopfwtxlh-Ydpmflng-Qwymav (CENTRUM SILVER) tab Take 1 tablet by mouth once daily. calcium carbonate/vitamin d3(CALCIUM 600 + D(3) 600 MG (1,500)-200 UNIT TAB) Take one(1) tablet twice daily. No current facility-administered medications for this visit. ALLERGIES Allergen Reactions Aspirin Hives Iodine Hives Lyrica [Pregabalin] Swelling Leg edema, fluid retention, (more content not included)... [facility] 11-27-2023 Note HNO ID: [id number] Author: NALDO BOBBY, ARAVIND Service: ? Author [...] care. States that she has seen other gastrointestinal technician for this, but they cut her nails too short and she has had problems since, particularly with left big toe. [facility] 09-16-2023 Note HNO ID: [id number] Author: Anna Perera APRN.FREDI Service: ? Author [...] (PRESERVISION ORAL) Take by mouth twice daily. Nmqgohghydzft-Paxoqvjj-Wzqfrb (CENTRUM SILVER) tab Take 1 tablet by [...] spasm ACTIVE PROBLEM LIST Pulmonary Htn (Formerly [facility]) - 05/30/2022 Chronic Hypoxemic Respiratory Failure (Formerly [facility]) - 05/30/2022 Type 2 Diabetes Mellitus With Diabetic Peripheral Angiopathy Without Gangrene, Without Long-Term Current Use of Insulin ([facility]) - 11/16/2021 Type 2 Diabetes Mellitus With Stage 3b Chronic Kidney Disease, Without Long-Term Current Use of Insulin ([facility]) - 11/16/2021 Hypertensive Heart and Kidney Disease With Chronic Diastolic Congestive Heart Failure and Stage 3 Chronic Kidney Disease ([facility]) - 11/16/2021 Chronic Diastolic Congestive Heart Failure ([facility]) - 11/06/2020 Anemia of Chronic Renal Failure, Stage 3 (Moderate) ([facility]) - 09/01/2020 Angina of Effort - 07/24/2020 PAD (peripheral artery disease) ([facility]) both lower extremities. - 06/02/2018 Comment: Dr. Jose Luis Marie, Vascular Surgery Ckd (Chronic Kidney Disease) Stage 3, Gfr 30-59 Ml/Min ([facility]) - 08/27/2017 Osteopenia of multiple sites (Clinical osteoporosis) - 03/11/2017 Lower Leg Edema - 10/10/2015 Stented Coronary Artery - 08/16/2014 Diabetes Mellitus With Neurological Manifestations ([facility]ly [facility]) - 03/20/2010 Hallux Valgus, Acquired - 03/20/2010 Chronic Rhinitis - 03/29/2008 Macular Degeneration (Senile) of Retina, Unspecified - 11/24/2007 Comment: [facility] 10-21-07: L eye with MD s/p cataract extraction-stable P (more content not included)... [facility] 09-16-2023 History of Present illness Narrative SUBJECTIVE [...] (PRESERVISION ORAL) Take by mouth twice daily. Ofpruzjzxgspb-Fvgkaygx-Fcqega (CENTRUM SILVER) tab Take 1 tablet by [...] spasm ACTIVE PROBLEM LIST Pulmonary Htn ([facility]ly [facility]) - 05/30/2022 Chronic Hypoxemic Respiratory Failure ([facility]) - 05/30/2022 Type 2 Diabetes Mellitus With Diabetic Peripheral Angiopathy Without Gangrene, Without Long-Term Current Use of Insulin ([facility]) - 11/16/2021 Type 2 Diabetes Mellitus With Stage 3b Chronic Kidney Disease, Without Long-Term Current Use of Insulin ([facility]) - 11/16/2021 Hypertensive Heart and Kidney Disease With Chronic Diastolic Congestive Heart Failure and Stage 3 Chronic Kidney Disease ([facility]) - 11/16/2021 Chronic Diastolic Congestive Heart Failure ([facility]) - 11/06/2020 Anemia of Chronic Renal Failure, Stage 3 (Moderate) ([facility]) - 09/01/2020 Angina of Effort - 07/24/2020 PAD (peripheral artery disease) ([facility]) both lower extremities. - 06/02/2018 Comment: Dr. Jose Luis Marie, Vascular Surgery Ckd (Chronic Kidney Disease) Stage 3, Gfr 30-59 Ml/Min ([facility]) - 08/27/2017 Osteopenia of multiple sites (Clinical osteoporosis) - 03/11/2017 Lower Leg Edema - 10/10/2015 Stented Coronary Artery - 08/16/2014 Diabetes Mellitus With Neurological Manifestations ([facility]) - 03/20/2010 Hallux Valgus, Acquired - 03/20/2010 Chronic Rhinitis - 03/29/2008 Macular Degeneration (Senile) of Retina, Unspecified - 11/24/2007 Comment: [facility] 10-21-07: L eye with s/p cataract extraction-stable Galvin 2: L eye YAG capsulotomy after cataract extraction 11-23-07, 20/40 R, count fingers L Coronary Artery Disease Involving [place] Coronary Artery of [place] Heart Without Angina Pectoris - 11/13/2007 Unspecified Vitamin D Deficiency - 10/12/2007 Esophageal Reflux - 08/21/2007 Sleep apnea, intolerant to CPAP. - 08/21/2007 Essential Hypertension Stage 2 Moderate Copd By Gold Classification ([facility]) - 11/21/2005 Hyperlipidemia - 08/15/2005 Social History [...] disease, without long-term current use of insulin ([facility]) - ICD9: 250.40, 585.3, ICD10: E11.22, N18.32 - Controlled - Continue current medications - Counseled on healthy diet and regular exercise 3. 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 - ICD9: 414.01, ICD10: I25.10 Stable, nitro occasionally, following with cardiology. 4. Stage 2 moderate COPD by GOLD classification ([facility]) - ICD9: 496, ICD10: J44.9 Following with [...] medications.. ALEXA Griffin documented in this encounter [facility] 09-15-2023 Note HNO ID: [id number] Author: Emilie Corral MD Service: ? Author Type: Physician Type: Progress Notes Filed: 09/15/2023 10:49 AM Note Text: Emilie Corral MD Interventional Cardiology [address] [place] [address] Chief Complaint Patient presents with: Recheck HISTORY [...] of chronic renal failure, stage 3 (moderate) ([facility]) 09/01/2020 Arrhythmia BENIGN NEOPLASM LG BOWEL 08/21/2007 Adenomatous polyp removed from Sigmoid in 1992 Colonoscopy 06-15-07 (sister with colon ca): left sided tics with no polyps or masses CHF (congestive heart failure) (HCC) Chronic airway obstruction, not elsewhere classified Chronic bronchitis. CKD (chronic kidney disease) stage 3, GFR 30-59 ml/min ([facility]) 08/27/2017 Closed Colles' fracture of left radius 02/27/2017 Coronary artery disease Diverticulosis of colon (without mention of hemorrhage) DM Neuro Manif Type II 03/20/2010 Esophageal reflux 08/21/2007 Hallux valgus (acquired) 03/20/2010 MACULAR DEGENERATION NOS 11/24/2007 [facility] 10-21-07: L eye with s/p [...] Each 11 mometasone (more content not included)... [facility] 09-15-2023 History of Present illness Narrative Images from the original note were not included. Emilie Corral MD Interventional Cardiology [address] [place] [address] Chief Complaint Patient presents with: Recheck HISTORY [...] of chronic renal failure, stage 3 (moderate) ([facility]) 09/01/2020 Arrhythmia BENIGN NEOPLASM LG BOWEL 08/21/2007 Adenomatous polyp removed from Sigmoid in 1992 Colonoscopy 06-15-07 (sister with colon ca): left sided tics with no polyps or masses CHF (congestive heart failure) ([facility]) Chronic airway obstruction, not elsewhere classified Chronic bronchitis. CKD (chronic kidney disease) stage 3, GFR 30-59 ml/min ([facility]) 08/27/2017 Closed Colles' fracture of left radius 02/27/2017 Coronary artery disease Diverticulosis of colon (without mention of hemorrhage) DM Neuro Manif Type II 03/20/2010 Esophageal reflux 08/21/2007 Hallux valgus (acquired) 03/20/2010 MACULAR DEGENERATION NOS 11/24/2007 [facility] 10-21-07: L eye with MD s/p cataract [...] (PRESERVISION ORAL) Take by mouth twice daily. Wptwrbwxjzprl-Aeztekui-Amhflh (CENTRUM SILVER) tab Take 1 tablet by [...] aerobic exercise 4. 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 - ICD9: 414.01, [...] correct any errors. documented in this encounter [facility] 09-10-2023 Miscellaneous Notes Patient called in and stated that she needs a refill of her albuterol HFA (VENTOLIN HFA) 90 mcg/actuation inhaler [facility] please let me know when completed so I can call the patient back. Thank you Chris Worrell documented in this encounter [facility] 09-08-2023 Miscellaneous Notes The following approved medication [...] ABRIL SALAS MD documented in this encounter [facility] 09-01-2023 Note HNO ID: [id number] Author: Jasmin Avendano MD Service: ? Author Type: Physician Type: Progress Notes Filed: 09/01/2023 9:55 AM Note Text: . [facility] [place] Note Patient name: Kyle Arroyo PCP: Abril [...] Imaging / Diagnostic Studies: Last chest imaging [facility] 02/2023 with perihilar infiltrates PAST MEDICAL HISTORY Diagnosis Date Anemia of chronic renal failure, stage 3 (moderate) ([facility]) 09/01/2020 Arrhythmia BENIGN NEOPLASM LG BOWEL 08/21/2007 Adenomatous polyp removed from Sigmoid in 1992 Colonoscopy 06-15-07 (sister with colon ca): left sided tics with no polyps or masses CHF (congestive heart failure) ([facility]) Chronic airway obstruction, not elsewhere classified Chronic bronchitis. CKD (chronic kidney disease) stage 3, GFR 30-59 ml/min ([facility]) 08/27/2017 Closed Colles' fracture of left radius 02/27/2017 Coronary artery disease Diverticulosis of colon (without mention of hemorrhage) DM Neuro Manif Type II 03/20/2010 Esophageal reflux 08/21/2007 Hallux valgus (acquired) 03/20/2010 MACULAR DEGENERATION NOS 11/24/2007 [facility] 10-21-07: L eye with MD s/p cataract extraction-stable Galvin 2-08: L eye YAG capsulotomy after cataract extraction 11-23-07, 20/40 R, count fingers L Oropharyngeal dysphagia 09/13/2015 Honey thickened liquids. Osteopenia Osteopenia of multiple sites (Clinical osteoporosis) 03/11/2017 Other and unspecified hyperlipidemia Other psoriasis and similar disorders Psoriasis PAD (peripheral artery disease) ([facility]) both lower extremities. 06/02/2018 Dr. Jose Luis Marie, Vascular Surgery Peripheral sensory neuropathy due to type 2 diabetes mellitus ([facility]) 01/15/2016 Restless legs syndrome (RLS) 08/21/2007 Unspecified [...] daily before breakfast.Disp (more content not included)... [facility] 09-01-2023 History of Present illness Narrative Images from the original note were not included. . [facility] [place] Note Patient name: Kyle Arroyo PCP: Abril [...] Imaging / Diagnostic Studies: Last chest imaging [facility] 02/2023 with perihilar infiltrates PAST MEDICAL HISTORY Diagnosis Date Anemia of chronic renal failure, stage 3 (moderate) ([facility]) 09/01/2020 Arrhythmia BENIGN NEOPLASM LG BOWEL 08/21/2007 Adenomatous polyp removed from Sigmoid in 1992 Colonoscopy 06-15-07 (sister with colon ca): left sided tics with no polyps or masses CHF (congestive heart failure) ([facility]) Chronic airway obstruction, not elsewhere classified Chronic bronchitis. CKD (chronic kidney disease) stage 3, GFR 30-59 ml/min ([facility]) 08/27/2017 Closed Colles' fracture of left radius 02/27/2017 Coronary artery disease Diverticulosis of colon (without mention of hemorrhage) DM Neuro Manif Type II 03/20/2010 Esophageal reflux 08/21/2007 Hallux valgus (acquired) 03/20/2010 MACULAR DEGENERATION NOS 11/24/2007 [facility] 10-21-07: L eye with MD s/p cataract extraction-[facility] 12-11: L eye YAG capsulotomy after cataract extraction 11-23-07, 20/40 R, count fingers L Oropharyngeal dysphagia 09/13/2015 Honey thickened liquids. Osteopenia Osteopenia of multiple sites (Clinical osteoporosis) 03/11/2017 Other and unspecified hyperlipidemia Other psoriasis and similar disorders Psoriasis PAD (peripheral artery disease) ([facility]) both lower extremities. 06/02/2018 Dr. Jose Luis Marie, Vascular Surgery Peripheral sensory neuropathy due to type 2 diabetes mellitus ([facility]) 01/15/2016 Restless legs syndrome (RLS) 08/21/2007 Unspecified [...] days.^Disp: 30 capsule^Rfl: 5 blood sugar diagnostic ([employer] ULTRA TEST) test strip^Test blood sugar twice [...] ORAL)^Take by mouth twice daily. ^Disp: ^Rfl: Aleplpqrwrihq-Irrnztog-Dgwwin (CENTRUM SILVER) tab^Take 1 tablet by mouth [...] EGD ESOPHAGOGASTRODUODENOSCOPY TRANSORAL DIAGNOSTIC 10/28/2014 EGD inpt [facility] LIG/TRNSXJ FLP TUBE ABDL/VAG APPR UNI/BI 1968 [...] -Continue diuretic Jasmin Avendano MD [facility] [place] documented in this encounter [facility] 07-22-2023 Miscellaneous Notes Patient has been identified [...] advise. Heather Reese documented in this encounter [facility] 05-07-2023 Miscellaneous Notes Patient phones requesting refills as follows: Requested Prescriptions Pending Prescriptions Disp Refills blood sugar diagnostic (ONETOUCH ULTRA TEST) test strip 200 Strip 3 Sig: Test blood sugar twice daily Dx. Code: E11.40 TOM: 03/14/23 NOV: 09/16/23 Last Refill: 04/17/22 #200 3 refills Eliza Jack LPN documented in this encounter [facility] documented in this encounter [facility]05-12-2023 NoteHNO ID: [id number] Author: Abril Salas MD Service: ? Author [...] valgus (acquired) 03/20/2010 MACULAR DEGENERATION NOS 11/24/2007 [facility] 10-21-07: L eye with s/p cataract extraction-stable Galvin -08: L eye YAG capsulotomy after cataract extraction 11-23-07, 20/40 R, count fingers L Oropharyngeal dysphagia 09/13/2015 Honey thickened liquids. Osteopenia Osteopenia of multiple sites (Clinical osteoporosis) 03/11/2017 Other and unspecified hyperlipidemia Other psoriasis and similar disorders Psoriasis PAD (peripheral artery disease) ([facility]) both lower extremities. 06/02/2018 Dr. Jose Luis Marie, Vascular Surgery Peripheral sensory neuropathy due to type 2 diabetes mellitus ([facility]) 01/15/2016 Restless legs syndrome (RLS) 08/21/2007 Unspecified [...] as instructed twice daily. blood sugar diagnostic (FublesTOUCH ULTRA TEST) test strip Test blood sugar [...] (PRESERVISION ORAL) Take by mouth twice daily. Ybuxtkbsqpnkg-Dpkghlim-Ozuzob (CENTRUM SILVER) tab Take 1 tablet by mouth once daily. calcium carbonate/vitamin d3(CALCIUM 600 + D(3) 600 MG (1,500)-200 UNIT TAB) Take one(1) tablet twice daily. Current Facility-Administered Medications Medication Dose Route Frequency perf (more content not included)...[facility]05-12-2023 Instructions* Patient Instructions* Abril Salas MD - 03/14/2023 9:32 AM EDT Reconsider wearing oxygen at least at night time because of issues with pulmonary hypertension. Would recheck overnight pulse ox to verify still qualify and then reorder oxygen. Okay to take off whengoing to the bathroom if oxygen level does not drop with activity. [facility] History of Present illness Narrative* Abril Salas [...] of chronic renal failure, stage 3 (moderate) ([facility]) 09/01/2020 Arrhythmia BENIGN NEOPLASM LG BOWEL 08/21/2007 Adenomatous polyp removed from Sigmoid in 1992 Colonoscopy 06-15-07 (sister with colon ca): left sided tics with no polyps or masses CHF (congestive heart failure) ([facility]) Chronic airway obstruction, not elsewhere classified Chronic bronchitis. CKD (chronic kidney disease) stage 3, GFR 30-59 ml/min ([facility]) 08/27/2017 Closed Colles' fracture of left radius 02/27/2017 Coronary artery disease Diverticulosis of colon (without mention of hemorrhage) DM Neuro Manif Type II 03/20/2010 Esophageal reflux 08/21/2007 Hallux valgus (acquired) 03/20/2010 MACULAR DEGENERATION NOS 11/24/2007 [facility] 10-21-07: L eye with MD s/p cataract extraction-[facility] -08: L eye YAG capsulotomy after cataract extraction 11-23-07, 20/40 R, count fingers L Oropharyngeal dysphagia 09/13/2015 Honey thickened liquids. Osteopenia Osteopenia of multiple sites (Clinical osteoporosis) 03/11/2017 Other and unspecified hyperlipidemia Other psoriasis and similar disorders Psoriasis PAD (peripheral artery disease) ([facility]) both lower extremities. 06/02/2018 Dr. Jose Luis [...] as instructed twice daily. blood sugar diagnostic (FublesTOUCH ULTRA TEST) test strip Test blood sugar [...] (PRESERVISION ORAL) Take by mouth twice daily. Wnhxfvxoggoxq-Pcwamyhz-Dhfvub (CENTRUM SILVER) tab Take 1 tablet by [...] 6. Bilateral bunions M21.611 M21.612 Follows with gastrointestinal technician 7. Nocturia R35.1 8. 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 I25.10 9. Chronic [...] the date of the service which included bjmy-qg-jcbw patient care, completing clinical documentation, obtaining and/or reviewing separately obtained history, performing a medically appropriate examination, counseling and educating the patient/family/caregiver, ordering medications, tests, or procedures, independently interpreting results (not separately reported), and communicating results to the patient/family/caregiver. Noted daughter provides detailed history and concerns about health of mother and brother. Abril Salas MD [facility] Miscellaneous Notes* Telephone Encounter - Nichole Ly [...] patient. Jodi Leiva Pss documented [facility]23 NoteHNO ID: [id number] Author: Miladis Foster PA-C Service: ? Author Type: Physician Manager Sign Type: Progress Notes Filed: 02/28/2023 3:58 PM [...] COVID-19 original vaccine, age 12+ yr, monovalent (Moblication - PURPLE TOP) 11/27/2020 12/25/2020 diphtheria tetanus [...] of chronic renal failure, stage 3 (moderate) ([facility]) 09/01/2020 Arrhythmia BENIGN NEOPLASM LG BOWEL 08/21/2007 Adenomatous polyp removed from Sigmoid in 1992 Colonoscopy 06-15-07 (sister with colon ca): left sided tics with no polyps or masses CHF (congestive heart failure) ([facility]) Chronic airway obstruction, not elsewhere classified Chronic bronchitis. CKD (chronic kidney disease) stage 3, GFR 30-59 ml/min ([facility]) 08/27/2017 Closed Colles' fracture of left radius 02/27/2017 Coronary artery disease Diverticulosis of colon (without mention of hemorrhage) DM Neuro Manif Type II 03/20/2010 Esophageal reflux 08/21/2007 Hallux valgus (acquired) 03/20/2010 MACULAR DEGENERATION NOS 11/24/2007 [facility] 10-21-07: L eye with s/p [...] times daily. Dx: E11.49 (more content not included)...[facility]04-28-2023 Instructions* Patient Instructions* Rosana Wellington APRN.INTERNATIONAL TRADE ANALYST - 02/28/2023 9:10 AM EDT I sent a refill of your albuterol We will see you back in 6 months, call us if you need anything before then or need any refills [facility] History of Present illness Narrative* Miladis Foster [...] COVID-19 original vaccine, age 12+ yr, monovalent ([employer] - PURPLE TOP) 11/27/2020 12/25/2020 diphtheria tetanus [...] of chronic renal failure, stage 3 (moderate) ([facility]) 09/01/2020 Arrhythmia BENIGN NEOPLASM LG BOWEL 08/21/2007 Adenomatous polyp removed from Sigmoid in 1992 Colonoscopy 06-15-07 (sister with colon ca): left sided tics with no polyps or masses CHF (congestive heart failure) ([facility]) Chronic airway obstruction, not elsewhere classified Chronic bronchitis. CKD (chronic kidney disease) stage 3, GFR 30-59 ml/min ([facility]) 08/27/2017 Closed Colles' fracture of left radius 02/27/2017 Coronary artery disease Diverticulosis of colon (without mention of hemorrhage) DM Neuro Manif Type II 03/20/2010 Esophageal reflux 08/21/2007 Hallux valgus (acquired) 03/20/2010 MACULAR DEGENERATION NOS 11/24/2007 [facility] 10-21-07: L eye with MD s/p cataract extraction-[facility] 2-08: L eye YAG capsulotomy after cataract extraction 11-23-07, 20/40 R, count fingers L Oropharyngeal dysphagia 09/13/2015 Honey thickened liquids. Osteopenia Osteopenia of multiple sites (Clinical osteoporosis) 03/11/2017 Other and unspecified hyperlipidemia Other psoriasis and similar disorders Psoriasis PAD (peripheral artery disease) ([facility]) both lower extremities. 06/02/2018 Dr. Jose Luis Marie, Vascular Surgery Peripheral sensory neuropathy due to type 2 diabetes mellitus ([facility]) 01/15/2016 Restless legs syndrome (RLS) 08/21/2007 Unspecified [...] breath.^Disp: 18 g^Rfl: 5 blood sugar diagnostic (FublesTOUCH ULTRA TEST) test strip^Test blood sugar twice [...] ORAL)^Take by mouth twice daily. ^Disp: ^Rfl: Poihryhmakfxh-Rtrjebod-Bjweba (CENTRUM SILVER) tab^Take 1 tablet by mouth [...] Eyes: Negative. Respiratory: Positive for cough. 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 Interpretive Statements ATS/ERS acceptability and repeatability standards for DLCO met. ATS/ERS acceptability and repeatability standards for spirometry met. IMPRESSION: Spirometry indicates mild obstruction. The diffusing capacity is moderately reduced. Electronically Signed On 08-30-2022 16:10:17 EDT by Jasmin Avendano M.D. Site: WO ID: [id number] Name: KYLE ARROYO Visit Date: 08/30/2022 Doctor: Plumber Apprentice: Lucy Neal Age: 86 Date of : [...] FEF75 (L/sec) 0.24 0.08 0.79 0.20 82 TDO67-44 (L/sec) 1.23 0.48 2.42 0.50 40 PEF [...] fibrosis at the lung bases. Bronchiectasis. Cardiomegaly Naval Marine Engineer: DALIAL ... Last CT Chest - Impression Only [...] (Final result) Narrative: Echocardiography Report: Transthoracic Echo [facility] Date of service: 07/09/2022 7:54:56 AM JUDGE Ordering physician: EMILIE CORRAL Indication: Syncope Technologist: [...] needed for weight gain. (I27.20) Pulmonary HTN ([facility]) Comment: Per echo 07/09/2022 :Estimated right ventricular systolic pressure is 66 mmHg consistent with moderately severe pulmonary hypertension. Estimated right atrial pressure is 3 mmHg (although IVC not seen). No symptoms at this time. (J44.9) Stage 2 moderate COPD by GOLD classification ([facility]) (primary encounter diagnosis) Comment: Declines oxygen. Refilled [...] signs/symptoms of upper respiratory infection Rosana Wellington APRN-INTERNATIONAL TRADE ANALYST [facility] [place] Miladis Foster PA-C documented in this encounter[facility]-2023 NoteHNO ID: [id number] Author: Emilie Corral MD Service: ? Author Type: Physician Type: Progress Notes Filed: 02/17/2023 2:43 PM Note Text: Emilie Corral MD Interventional Cardiology [address] [place] [address] Chief Complaint Patient presents with: Follow Up: [...] of chronic renal failure, stage 3 (moderate) ([facility]) 09/01/2020 Arrhythmia BENIGN NEOPLASM LG BOWEL 08/21/2007 Adenomatous polyp removed from Sigmoid in 1992 Colonoscopy 06-15-07 (sister with colon ca): left sided tics with no polyps or masses CHF (congestive heart failure) ([facility]) Chronic airway obstruction, not elsewhere classified Chronic bronchitis. CKD (chronic kidney disease) stage 3, GFR 30-59 ml/min ([facility]) 08/27/2017 Closed Colles' fracture of left radius 02/27/2017 Coronary artery disease Diverticulosis of colon (without mention of hemorrhage) DM Neuro Manif Type II 03/20/2010 Esophageal reflux 08/21/2007 Hallux valgus (acquired) 03/20/2010 MACULAR DEGENERATION NOS 11/24/2007 [facility] 10-21-07: L eye with s/p cataract extraction-stable Gal[facility] 2-08: L eye YAG capsulotomy after cataract extraction 11-23-07, 20/40 R, count fingers L Oropharyngeal dysphagia 09/13/2015 Honey thickened liquids. Osteopenia Osteopenia of multiple sites (Clinical osteoporosis) 03/11/2017 Other and unspecified hyperlipidemia Other psoriasis and similar disorders Psoriasis PAD (peripheral artery disease) ([facility]) both lower extremities. 06/02/2018 Dr. Jose Luis [...] 2.5 mg 24 hr (more content not included)...[facility]04-17-2023 History of Present illness Narrative* Emilie Corral MD - 02/17/2023 2:09 PM EDT Images from the original note were not included. Emilie Corral MD Interventional Cardiology [address] [place], [place] [id number] Chief Complaint Patient presents with: Follow Up: [...] polyps or masses CHF (congestive heart failure) ([facility]) Chronic airway obstruction, not elsewhere classified Chronic bronchitis. CKD (chronic kidney disease) stage 3, GFR 30-59 ml/min ([facility]) 08/27/2017 Closed Colles' fracture of left radius 02/27/2017 Coronary artery disease Diverticulosis of colon (without mention of hemorrhage) DM Neuro Manif Type II 03/20/2010 Esophageal reflux 08/21/2007 Hallux valgus (acquired) 03/20/2010 MACULAR DEGENERATION NOS 11/24/2007 [facility] 10-21-07: L eye with MD s/p cataract extraction-stable [place]vin 2-08: L eye YAG capsulotomy after cataract extraction 11-23-07, 20/40 R, count fingers L Oropharyngeal dysphagia 09/13/2015 Honey thickened liquids. Osteopenia Osteopenia of multiple sites (Clinical osteoporosis) 03/11/2017 Other and unspecified hyperlipidemia Other psoriasis and similar disorders Psoriasis PAD (peripheral artery disease) ([facility]) both lower extremities. 06/02/2018 Dr. Jose Luis Marie, Vascular Surgery Peripheral sensory neuropathy due to type 2 diabetes mellitus ([facility]) 01/15/2016 Restless legs syndrome (RLS) 08/21/2007 Unspecified [...] EGD ESOPHAGOGASTRODUODENOSCOPY TRANSORAL DIAGNOSTIC 10/28/2014 EGD inpt [facility] LIG/TRNSXJ FLP TUBE ABDL/VAG APPR UNI/BI 1968 [...] (PRESERVISION ORAL) Take by mouth twice daily. Qxjliryjmsylb-Rqzflzkz-Lqjoam (CENTRUM SILVER) tab Take 1 tablet by [...] to correct any errors. documented in this encounterKind[facility]03-13-2023 Miscellaneous Notes* Telephone Encounter - Miladis Adair Hansen [facility] - 01/13/2023 10:22 AM EDT Pharmacy verified [...] advise. Miladis Hansen Pss documented in this encounterKindred [facility]01-31-2023 Miscellaneous Notes* Telephone Encounter - Robyn Chavez [...] you. Robyn Chavez LPN documented in this encounterKindred [facility]01-25-2023 Miscellaneous Notes* Telephone Encounter - Laurita Leiva [...] notify patient. Alyse Jay documented in this encounterKindred [facility]12-12-2022 Miscellaneous Notes* Telephone Encounter - Nichole Ly [...] patient. Brenda Murphy Pss documented in this encounterKindred Hospital [facility]11-23-2022 History of Present illness Narrative* Abril Salas [...] of chronic renal failure, stage 3 (moderate) ([facility]) 09/01/2020 Arrhythmia BENIGN NEOPLASM LG BOWEL 08/21/2007 Adenomatous polyp removed from Sigmoid in 1992 Colonoscopy 06-15-07 (sister with colon ca): left sided tics with no polyps or masses CHF (congestive heart failure) ([facility]) Chronic airway obstruction, not elsewhere classified Chronic bronchitis. CKD (chronic kidney disease) stage 3, GFR 30-59 ml/min ([facility]) 08/27/2017 Closed Colles' fracture of left radius 02/27/2017 Coronary artery disease Diverticulosis of colon (without mention of hemorrhage) DM Neuro Manif Type II 03/20/2010 Esophageal reflux 08/21/2007 Hallux valgus (acquired) 03/20/2010 MACULAR DEGENERATION NOS 11/24/2007 [facility] 10-21-07: L eye with s/p cataract extraction-stable Galvin 2-08: L eye YAG capsulotomy after cataract extraction 11-23-07, 20/40 R, count fingers L Oropharyngeal dysphagia 09/13/2015 Honey thickened liquids. Osteopenia Osteopenia of multiple sites (Clinical osteoporosis) 03/11/2017 Other and unspecified hyperlipidemia Other psoriasis and similar disorders Psoriasis PAD (peripheral artery disease) ([facility]) both lower extremities. 06/02/2018 Dr. Jose Luis Marie, Vascular Surgery Peripheral sensory neuropathy due to type 2 diabetes mellitus ([facility]) 01/15/2016 Restless legs syndrome (RLS) 08/21/2007 Unspecified [...] (PRESERVISION ORAL) Take by mouth twice daily. Skvhjgzkqhhzd-Zzfofstq-Jneael (CENTRUM SILVER) tab Take 1 tablet by [...] neuropathy, without long-term current use of insulin ([facility]) E11.40 COMP METABOLIC PANEL CBC HGB A1C 2. Chronic diastolic congestive heart failure (HCC) I50.32 furosemide (LASIX) 40 mg tablet NT PRO BNP 3. Chronic obstructive pulmonary disease, unspecified COPD type ([facility]) J44.9 tiotropium bromide (SPIRIVA RESPIMAT) 2.5 mcg/actuation inhaler 4. 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 I25.10 isosorbide mononitrate [...] indicated. Abril Salas MD documented in this encounterKindred [facility]10-28-2022 History of Present illness Narrative* Jasmin Avendano MD - 08/30/2022 9:30 AM EDT Images from the original note were not included. . [facility] [place] Note Patient name: Kyle Arroyo PCP: Ady [...] of chronic renal failure, stage 3 (moderate) ([facility]) 09/01/2020 Arrhythmia BENIGN NEOPLASM LG BOWEL 08/21/2007 Adenomatous polyp removed from Sigmoid in 1992 Colonoscopy 06-15-07 (sister with colon ca): left sided tics with no polyps or masses CHF (congestive heart failure) ([facility]) Chronic airway obstruction, not elsewhere classified Chronic bronchitis. CKD (chronic kidney disease) stage 3, GFR 30-59 ml/min ([facility]) 08/27/2017 Closed Colles' fracture of left radius 02/27/2017 Coronary artery disease Diverticulosis of colon (without mention of hemorrhage) DM Neuro Manif Type II 03/20/2010 Esophageal reflux 08/21/2007 Hallux valgus (acquired) 03/20/2010 MACULAR DEGENERATION NOS 11/24/2007 [facility] 10-21-07: L eye with MD s/p cataract extraction-stable [facility] 2-08: L eye YAG capsulotomy after cataract extraction 11-23-07, 20/40 R, count fingers L Oropharyngeal dysphagia 09/13/2015 Honey thickened liquids. Osteopenia Osteopenia of multiple sites (Clinical osteoporosis) 03/11/2017 Other and unspecified hyperlipidemia Other psoriasis and similar disorders Psoriasis PAD (peripheral artery disease) ([facility]) both lower extremities. 06/02/2018 Dr. Jose Luis Marie, Vascular Surgery Peripheral sensory neuropathy due to type 2 diabetes mellitus ([facility]) 01/15/2016 Restless legs syndrome (RLS) 08/21/2007 Unspecified [...] breakfast.^Disp: 90 tablet^Rfl: 1 blood sugar diagnostic (FublesTOUCH ULTRA TEST) test strip^Test blood sugar twice [...] ORAL)^Take by mouth twice daily. ^Disp: ^Rfl: Vhyqpigucnspe-Kstshoua-Wvmcmx (CENTRUM SILVER) tab^Take 1 tablet by mouth [...] EGD ESOPHAGOGASTRODUODENOSCOPY TRANSORAL DIAGNOSTIC 10/28/2014 EGD inpt [facility] LIG/TRNSXJ FLP TUBE ABDL/VAG APPR UNI/BI 1967 [...] RV failure Jasmin Avendano MD [facility] [place] documented in this encounterKindred Hospital [facility]10-28-2022 Nurse Note* Nadia Marquis LPN - 08/30/2022 9:13 AM EDT Intake information documented in the prior visit with VIVAINA Zelaya today. documented in this encounterKindred Hospital [facility]10-28-2022 History of Present illness Narrative* VIVIANA Zelaya - 08/30/2022 8:56 AM EDT PULM FUNCTION SMARTBLOCK: Provider: Miladis Foster PA-C Assisting Tech: VIVIANA Zelaya Spirometry: 1 DLCO: 1 documented in this encounterKindred Hospital [facility]10-17-2022 History of Present illness Narrative* Emilie Corral MD - 08/19/2022 12:37 PM EDT Images from the original note were not included. Emilie Corral MD Interventional Cardiology [facility] [address], [place] [id number] Chief Complaint Patient presents with: Established Patient [...] polyps or masses CHF (congestive heart failure) ([facility]) Chronic airway obstruction, not elsewhere classified Chronic bronchitis. CKD (chronic kidney disease) stage 3, GFR 30-59 ml/min ([facility]) 08/27/2017 Closed Colles' fracture of left radius 02/27/2017 Coronary artery disease Diverticulosis of colon (without mention of hemorrhage) DM Neuro Manif Type II 03/20/2010 Esophageal reflux 08/21/2007 Hallux valgus (acquired) 03/20/2010 MACULAR DEGENERATION NOS 11/24/2007 [facility] 10-21-07: L eye with MD s/p cataract extraction-stable [place] 12-11: L eye YAG capsulotomy after cataract extraction 11-23-07, 20/40 R, count fingers L Oropharyngeal dysphagia 09/13/2015 Honey thickened liquids. Osteopenia Osteopenia of multiple sites (Clinical osteoporosis) 03/11/2017 Other and unspecified hyperlipidemia Other psoriasis and similar disorders Psoriasis PAD (peripheral artery disease) ([facility]) both lower extremities. 06/02/2018 Dr. Jose Luis Marie, Vascular Surgery Peripheral sensory neuropathy due to type 2 diabetes mellitus ([facility]) 01/15/2016 Restless legs syndrome (RLS) 08/21/2007 Type [...] (PRESERVISION ORAL) Take by mouth twice daily. Ewyzekbxvqyzv-Sodkxxsl-Czkekg (CENTRUM SILVER) tab Take 1 tablet by [...] to correct any errors. documented in this encounterKindred [facility]10-11-2022 Miscellaneous Notes* Telephone Encounter - Laurita Willams [...] 08/19/2022. Yin Matos LPN documented in this encounterKindred Hospital [facility]10-07-2022 Miscellaneous Notes* Telephone Encounter - Jana Sofia [...] notify patient. Jana Sofia documented in this encounterKindred Hospital [facility]09-15-2022 Miscellaneous Notes* Telephone Encounter - Nadja Bowen [...] advise. Nadja Taveras Pss documented in this encounterKindred Hospital [facility]09-14-2022 Miscellaneous Notes* Telephone Encounter - Em Nazario [...] patient. Brenda Murphy Pss documented in this encounterKindred Hospital [facility]09-14-2022 Miscellaneous Notes* Telephone Encounter - Lyssa Scruggs Ma - 07/17/2022 3:20 PM EDT Patient has been identified by name and date of : Yes Requested Prescriptions Pending Prescriptions Disp Refills mometasone-formoterol (DULERA) 200-5 mcg/actuation inhaler 13 g 11 Sig: Inhale 1 Puff as instructed twice daily. RX INSTRUCTIONS: Patient aware RX will be sent to pharmacy. No need to notify patient. Verified [facility] in [place]. Lyssa Scruggs Ma documented in this encounterKindred Hospital [facility]08-23-2022 History of Present illness Narrative* Lissa Kaplan RN - 06/25/2022 12:30 PM EDT EVENT MONITOR DISPOSABLE PATCH INSTRUCTIONS Patient Name: Kyle Arroyo Clinic Number: [id number] Skin prepped and cleansed with alcohol Patch secured to prepped area Monitor Activated Serial #: [id number] Patient Instructed: Prescribed order timeframe Bathing guidelines Usage of event button and diary documentation Return of monitor at the end of prescribed order Call with problems [phone] or [phone] ext. [phone] Patient expresses a good understanding of instructions Lissa Kaplan RN documented in this encounterKindred Hospital [facility]07-28-2022 Miscellaneous Notes* Telephone Encounter - Niurka Pope LPN - 05/30/2022 11:27 AM EDT Message viewed. Niurka Pope LPN documented in this encounterKindred Hospital [facility]07-28-2022 History of Present illness Narrative* Miladis Foster PA-C - 05/30/2022 9:00 AM EDT [facility] [place], 05/30/2022: Name: Kyle Arroyo : 1935 The patient is here today with Katherin, daughter, who attends the entire visit, exam and discussion. HPI: Kyle Arroyo is a 86 yo female former smoker, 58.6-zkwz-yiqdv, with PMH significant for CHF, CKD stage [...] Stage 2 moderate COPD by GOLD classification ([facility]) - ICD9: 496, ICD10: J44.9 (primary diagnosis) [...] LUNG DIFFUSION CAPACITY (DLCO) 2. Pulmonary HTN ([facility]) - ICD9: 416.8, ICD10: I27.20 Last echocardiogram [...] answers. Miladis Foster PA-C documented in this encounterKindred Hospital [facility]07-27-2022 Miscellaneous Notes* Telephone Encounter - Ady Ignacio MD - 05/29/2022 1:04 PM EDT Katherin dropped off BP log. 04/15/22, 04/25-05/23/22. Range 108/49 to 150/66. Report of fall 05/19/22 with dizziness and BP 120/47 P 69. Plan: Reduce amlodipine to 5 mg daily documented in this encounterKindred Hospital [facility]06-20-2022 Miscellaneous Notes* Telephone Encounter - Adair Celestin [...] you. Adair Celestin RN documented in this encounterKindred Hospital [facility]06-15-2022 Miscellaneous Notes* Telephone Encounter - Ambreen Bowen [...] patient. Ambreen Hernandez Pss documented in this encounterKindred Hospital [facility]05-27-2022 History of Present illness Narrative* Ady Ignacio MD - 03/29/2022 9:03 AM EDT This note was created using MARIPOSA BIOTECHNOLOGYriter. Subjective Kyle Arroyo is a 86 year [...] Chronic Obstructive Airway Disease With Asthma ([facility]) Essential Hypertension Esophageal Reflux Sleep apnea, intolerant to CPAP. Unspecified Vitamin D Deficiency Coronary Artery Disease Involving [place] Coronary Artery of [place] Heart Without Angina Pectoris Macular Degeneration (Senile) of Retina, Unspecified Chronic Rhinitis Osteopenia of multiple sites (Clinical osteoporosis) Diabetes Mellitus With Neurological Manifestations ([facility]) Hallux Valgus, Acquired Stented Coronary Artery Lower Leg Edema Ckd (Chronic Kidney Disease) Stage 3, Gfr 30-59 Ml/Min ([facility]) PAD (peripheral artery disease) (HCC) both lower [...] by mouth twice daily. blood sugar diagnostic ([employer] ULTRA TEST) test strip Test blood sugar twice daily Dx. Code: E11.40 sodium chloride (AYR, OCEAN) 0.65 % nasal spray Use 2 Sprays in the nose twice daily. Compression Knee Highs KNEE HIGH COMPRESSION STOCKINGS 20-30 MM HG. DX: EDEMA Lancets lancets Test blood sugar(s) once times daily. Dx: E11.49 Insulin: No VIT C/MCKENNA AC/LUT/COPPER/ZNOX (PRESERVISION ORAL) Take by mouth twice daily. Jnezefvagoyok-Bbcjdmhw-Hzlzac (CENTRUM SILVER) ORAL Tab Take 1 tablet [...] medication(s) Ady Ignacio MD documented in this encounterKindred Hospital [facility]05-18-2022 Miscellaneous Notes* Telephone Encounter - Em Nazario LPN - 03/20/2022 10:06 AM EDT In review this rx is at the pharmacy with refills. Pharmacy called. * Telephone Encounter - Khloe Solomon [facility] - 03/20/2022 9:54 AM EDT Patient has been identified by name and date of : Yes Pending Prescriptions Disp Refills FUROSEMIDE 40 MG TABLET 180 tablet 1 Sig: Take 1 tablet by mouth twice daily. ANALILIA: No RX INSTRUCTIONS: Patient aware RX will be sent to pharmacy. No need to notify patient. Khloelenny Solomon [employer] documented in this encounterKindred Hospital [facility]04-27-2022 Miscellaneous Notes* Telephone Encounter - Em Nazario [...] patient. Jacqueline Hernandez Pss documented in this encounterKindred Hospital [facility]04-25-2022 Miscellaneous Notes* Telephone Encounter - Em Nazario [...] Pleaseadvise and call patient. documented in this encounterKindred Hospital [facility]04-25-2022 Evaluation note* Diagnosis Type 2 diabetes mellitus with stage 3 chronic kidney disease, without long-term current use of insulin, unspecified whether stage 3a or 3b CKD (HCC)- Primary documented in this encounter [facility]04-11-20[facility] History of Present illness Narrative* Leonel Paniagua MD - 02/11/2022 3:20 PM EDT Images from the original note were not included. [facility] SE[facility] REGIONAL CARDIOLOGY Cardiology ([facility]) [address] [facility] [id number] OUTPATIENT VISIT DATE 02/11/2022 PRIMARY CARE PHYSICIAN: Ady Ignacio [address] [place] [address] HISTORY OF PRESENT ILLNESS: Ms. Arroyo is [...] to use high-protein supplements by both her drafting clerk as well as her primary care physician. To date, she has not been able to consume supplements due to abdominal discomfort. She has a follow-up appointment scheduled with her human resources executive. She had extensive list of her home blood pressure readings from August till present. They were reviewed in detail.She has had stable systolic and diastolic blood pressures. PAST MEDICAL HISTORY Diagnosis Date Anemia of chronic renal failure, stage 3 (moderate) ([facility]) 09/01/2020 Arrhythmia BENIGN NEOPLASM LG BOWEL 08/21/2007 Adenomatous polyp removed from Sigmoid in 1992 Colonoscopy 06-15-07 (sister with colon ca): left sided tics with no polyps or masses CHF (congestive heart failure) ([facility]) Chronic airway obstruction, not elsewhere classified Chronic bronchitis. CKD (chronic kidney disease) stage 3, GFR 30-59 ml/min ([facility]) 08/27/2017 Closed Colles' fracture of left radius 02/27/2017 Coronary artery disease Diverticulosis of colon (without mention of hemorrhage) DM Neuro Manif Type II 03/20/2010 Esophageal reflux 08/21/2007 Hallux valgus (acquired) 03/20/2010 MACULAR DEGENERATION NOS 11/24/2007 [facility] 10-21-07: L eye with MD s/p cataract extraction-stable [place] 2-08: L eye YAG capsulotomy after cataract extraction 11-23-07, 20/40 R, count fingers L Oropharyngeal dysphagia 09/13/2015 Honey thickened liquids. Osteopenia Osteopenia of multiple sites (Clinical osteoporosis) 03/11/2017 Other and unspecified hyperlipidemia Other psoriasis and similar disorders Psoriasis PAD (peripheral artery disease) ([facility]) both lower extremities. 06/02/2018 Dr. Jose Luis Marie, Vascular Surgery Peripheral sensory neuropathy due to type 2 diabetes mellitus ([facility]) 01/15/2016 Restless legs syndrome (RLS) 08/21/2007 Type [...] by mouth once daily. blood sugar diagnostic (KodkodUCH ULTRA TEST) test strip Test blood sugar twice daily Dx. Code: E11.40 sodium chloride (AYR, OCEAN) 0.65 % nasal spray Use 2 Sprays in the nose twice daily. Compression Knee Highs KNEE HIGH COMPRESSION STOCKINGS 20-30 MM HG. DX: EDEMA Lancets lancets Test blood sugar(s) once times daily. Dx: E11.49 Insulin: No VIT C/MCKENNA AC/LUT/COPPER/ZNOX (PRESERVISION ORAL) Take by mouth twice daily. Cktolubnlzqis-Eckcwgym-Xgetvt (CENTRUM SILVER) ORAL Tab Take 1 tablet [...] hypertension noted on echocardiogram October 2020, diabetes (gyq-mlcqnsb-uimdsnbxa), and chronic kidney disease who presents for routine follow-up. PLAN AND RECOMMENDATIONS: 1. 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- ICD9: 414.01, ICD10: [...] I73.9 Leonel Paniagua MD documented in this encounterKindred Hospital [facility]04-02-2022 Miscellaneous Notes* Telephone Encounter - Arthur Joshi Ma - 02/02/2022 9:48 AM EDT Time adjusted. Please review mychart. * Telephone Encounter - Ady Ignacio MD - 02/01/2022 5:38 PM EDT Change May appointment to 40 minutes please (memory concerns). documented in this encounterKindred Hospital Dayton04-01-2022 Procedure note* Lucy [place] RRT - 02/01/2022 [...] TIME: 1:51 PM Comment: documented in this encounterKindred Hospital [facility]04-01-2022 History of Present illness Narrative* Lucy [place] RRT - 02/01/2022 1:32 PM EDT PULM FUNCTION SMARTBLOCK: Provider: Emerson Calvo MD Assisting Tech: Lucy [place] RRT Oximetry - Ambulation: 1 System: [id number] documented in this encounterKindred Hospital Dayton03-29-2022 Miscellaneous Notes* Telephone Encounter - Emerson Calvo [...] disease left to the discretion of consulting Lube Man Leonel Paniagua MD and Primary Care Physician, Ady Ignacio MD. Patient and daughter also informed of this directly via [employer] message. Emerson Calvo MD, [facility] [place] [facility] [facility] [address] [place] [address] P: [phone] F: [phone] [email or web address] documented in this encounterKindred Hospital Dayton03-28-2022 History of Present illness Narrative* Cinda Granados [...] 28, 2022 9:45 AM documented in this encounterKindred Hospital Dayton03-28-2022 Instructions* Patient Instructions* Emerson Calvo MD - [...] with the patient's Primary Care Physician and Lube Man. 3. Obstructive sleep apnea. Patient intolerant of PAP Rx. Emerson Calvo MD, [facility] [place] [facility] [address] [address] P: [phone] F: [phone] documented in this encounterKindred Hospital Dayton03-28-2022 History of Present illness Narrative* Emerson Calvo MD - 01/28/2022 8:35 AM EDT [facility] [place], 01/28/2022: Name: Kyle Arroyo INTERVAL HISTORY: Since [...] Date(s) Administered COVID-19 vaccine, age 12+ yr (PFIZER-BIOINNJOY Travel - PURPLE TOP) 11/27/2020 12/25/2020 DT(PEDIATRIC) 12/02/2002 [...] with the patient's Primary Care Physician and Lube Man. 3. Obstructive sleep apnea. Patient intolerant of PAP Rx. I addressed the questions of the patient and her daughter Katherin, and they expressed understanding and acceptance of my answers. mEerson Calvo MD, [facility] [place] [facility] [address] [place] [address] P: [phone] F: [phone] ADDENDUM, 01/28/2022: CXR, 01/28/2022: IMPRESSION: Interval development of bilateral diffusely coarsened lung markings. Stable atelectasis or fibrosis at the lung bases. Bronchiectasis. Cardiomegaly I have personally and independently reviewed these CXR images and note cardiomegaly, with C:T ratioof 172:305. TO documented in this encounterKindred Hospital Dayton07-02-2021 History of Past illness Narrative* Problem Noted [...] of this encounter (statuses as of 01/28/2022) [facility] History of Past illness Narrative* Problem Noted [...] of this encounter (statuses as of 01/29/2022) [facility] of Past illness Narrative* Problem Noted [...] of this encounter (statuses as of 01/29/2022) [facility] History of Past illness Narrative* Problem Noted [...] of this encounter (statuses as of 01/29/2022) [facility] of Past illness Narrative* Problem Noted [...] of this encounter (statuses as of 02/01/2022) [facility] of Past illness Narrative* Problem Noted [...] of this encounter (statuses as of 02/03/2022) [facility] of Past illness Narrative* Problem Noted [...] of this encounter (statuses as of 02/11/2022) [facility] of Past illness Narrative* Problem Noted [...] of this encounter (statuses as of 02/25/2022) [facility] of Past illness Narrative* Problem Noted [...] of this encounter (statuses as of 02/27/2022) [facility] of Past illness Narrative* Problem Noted [...] of this encounter (statuses as of 03/15/2022) [facility] of Past illness Narrative* Problem Noted [...] of this encounter (statuses as of 03/20/2022) [facility] of Past illness Narrative* Problem Noted [...] of this encounter (statuses as of 03/29/2022) [facility] of Past illness Narrative* Problem Noted [...] of this encounter (statuses as of 04/17/2022) [facility] of Past illness Narrative* Problem Noted [...] of this encounter (statuses as of 04/23/2022) [facility] of Past illness Narrative* Problem Noted [...] of this encounter (statuses as of 05/29/2022) [facility] of Past illness Narrative* Problem Noted [...] of this encounter (statuses as of 05/30/2022) [facility] of Past illness Narrative* Problem Noted [...] of this encounter (statuses as of 05/30/2022) [facility] of Past illness Narrative* Problem Noted [...] of this encounter (statuses as of 06/24/2022) [facility] of Past illness Narrative* Problem Noted [...] of this encounter (statuses as of 06/24/2022) [facility] of Past illness Narrative* Problem Noted [...] of this encounter (statuses as of 06/25/2022) [facility] of Past illness Narrative* Problem Noted [...] of this encounter (statuses as of 07/17/2022) [facility] History of Past illness Narrative* Problem Noted [...] of this encounter (statuses as of 07/18/2022) [facility] History of Past illness Narrative* Problem Noted [...] of this encounter (statuses as of 07/19/2022) [facility] History of Past illness Narrative* Problem Noted [...] of this encounter (statuses as of 08/09/2022) [facility] History of Past illness Narrative* Problem Noted [...] of this encounter (statuses as of 08/13/2022) [facility] History of Past illness Narrative* Problem Noted [...] of this encounter (statuses as of 08/19/2022) [facility] History of Past illness Narrative* Problem Noted [...] of this encounter (statuses as of 08/30/2022) [facility] History of Past illness Narrative* Problem Noted [...] of this encounter (statuses as of 08/30/2022) [facility] History of Past illness Narrative* Problem Noted [...] of this encounter (statuses as of 08/30/2022) [facility] History of Past illness Narrative* Problem Noted [...] of this encounter (statuses as of 10/14/2022) [facility] History of Past illness Narrative* Problem Noted [...] of this encounter (statuses as of 11/03/2022) [facility] History of Past illness Narrative* Problem Noted [...] of this encounter (statuses as of 11/27/2022) [facility] History of Past illness Narrative* Problem Noted [...] of this encounter (statuses as of 12/03/2022) [facility] History of Past illness Narrative* Problem Noted [...] of this encounter (statuses as of 01/13/2023) [facility] History of Past illness Narrative* Problem Noted [...] of this encounter (statuses as of 02/17/2023) [facility] History of Past illness Narrative* Problem Noted [...] of this encounter (statuses as of 02/25/2023) [facility] History of Past illness Narrative* Problem Noted [...] of this encounter (statuses as of 02/28/2023) [facility] History of Past illness Narrative* Problem Noted [...] of this encounter (statuses as of 03/11/2023) [facility] History of Past illness Narrative* Problem Noted [...] of this encounter (statuses as of 04/14/2023) [facility] History of Past illness Narrative* Problem Noted [...] of this encounter (statuses as of 05/08/2023) [facility] History of Past illness Narrative* Problem Noted [...] of this encounter (statuses as of 07/23/2023) [facility] History of Past illness Narrative* Problem Noted [...] of this encounter (statuses as of 09/01/2023) [facility] History of Past illness Narrative* Problem Noted [...] of this encounter (statuses as of 09/09/2023) [facility] History of Past illness Narrative* Problem Noted [...] of this encounter (statuses as of 09/12/2023) [facility] History of Past illness Narrative* Problem Noted [...] of this encounter (statuses as of 09/15/2023) [facility] History of Past illness Narrative* Problem Noted [...] of this encounter (statuses as of 09/17/2023) [facility] History of Past illness Narrative* Problem Noted [...] of this encounter (statuses as of 12/10/2023) [facility] History of Past illness Narrative* Problem Noted [...] of this encounter (statuses as of 12/11/2023) [facility] History of Past illness Narrative* Problem Noted [...] of this encounter (statuses as of 12/11/2023) [facility] Chronic obstructive pulmonary disease, unspecified COPD type (HCC)- Primary Chronic diastolic congestive heart failure (HCC) Chronic diastolic heart failure [facility] Diagnosis Chronic obstructive pulmonary disease, unspecified COPD type (HCC) Chronic diastolic congestive heart failure (HCC) Chronic diastolic [facility] failure [facility] Chronic obstructive pulmonary disease, unspecified COPD type (HCC) Chronic diastolic congestive heart failure (HCC) Chronic diastolic heart failure [facility] Diagnosis 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- Primary Chronic diastolic congestive heart failure (HCC) Chronic diastolic heart failure Essential hypertension Unspecified essential hypertension Hyperlipidemia, unspecified hyperlipidemia type PAD (peripheral artery disease) ([facility]) both lower extremities. Peripheral vascular disease, unspecified [facility] Diagnosis Essential hypertension Unspecified essential hypertension Hyperlipidemia, unspecified hyperlipidemia type [facility] Diagnosis Chronic diastolic congestive heart failure (HCC) Chronic diastolic heart failure [facility] Diagnosis Type 2 diabetes mellitus with stage 3b chronic kidney disease, without long-term current use of insulin (HCC)- Primary Type 2 diabetes mellitus with diabetic neuropathy, without long-term current use of insulin (HCC) Essential hypertension Unspecified essential hypertension [facility] [place] [facility] Diagnosis Type 2 diabetes mellitus with diabetic neuropathy, without long-term current use of insulin (HCC) [facility] Diagnosis Essential hypertension Unspecified essential hypertension [facility] [place] [facility] Diagnosis Stage 2 moderate COPD by GOLD classification ([facility])- Primary Pulmonary HTN (HCC) Other chronic pulmonary heart diseases Chronic hypoxemic respiratory failure (HCC) Chronic respiratory failure Obstructive sleep apnea syndrome Obstructive sleep apnea (adult) (pediatric) [facility] [place] [facility]* Diagnosis Dizzy- Primary Dizziness and giddiness Shortness of breath [facility] [place] [facility] Diagnosis Angina of effort (HCC)- Primary Other and unspecified angina pectoris [facility] [place] [facility]* Diagnosis Chronic obstructive pulmonary disease, unspecified COPD type ([facility]) [facility] [place] [facility] Diagnosis Chronic obstructive pulmonary disease, unspecified COPD type (HCC) [facility] Diagnosis 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 Peripheral vascular disease, unspecified Pulmonary HTN (HCC) Other chronic pulmonary heart diseases [facility] [place] [facility] Diagnosis Stage 2 moderate COPD by GOLD classification ([facility]) [facility] Diagnosis Stage 2 moderate COPD by GOLD classification ([facility]) Chronic hypoxemic respiratory failure (HCC) Chronic respiratory failure [facility] [place] [facility] Diagnosis Centrilobular emphysema (HCC)- Primary Other emphysema Hypoxemia PAH (pulmonary artery hypertension) (HCC) Other chronic pulmonary heart diseases Need for influenza vaccination Need for prophylactic vaccination and inoculation against influenza [facility] Diagnosis Gastroesophageal reflux disease without esophagitis Esophageal reflux [facility] Diagnosis Type 2 diabetes mellitus with diabetic neuropathy, without long-term current use of insulin (HCC)- Primary Chronic diastolic congestive heart failure (HCC) Chronic diastolic heart failure Chronic obstructive pulmonary disease, unspecified COPD type (HCC) 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 Vitamin D deficiency Unspecified vitamin D deficiency Encounter for long-term current use of medication Syncope, unspecified syncope type [facility] [place] [facility] Diagnosis 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 [facility] [place] [facility]* Diagnosis Rhinitis Chronic rhinitis [facility] [place] [facility]* Diagnosis Gastroesophageal reflux disease without esophagitis Esophageal reflux Essential hypertension Unspecified essential hypertension documented in this encounter [facility] note* Diagnosis Pure hypercholesterolemia- Primary Stented coronary artery Postsurgical percutaneous transluminal coronary angioplasty status PAD (peripheral artery disease) ([facility]) both lower extremities. Peripheral vascular disease, unspecified Essential hypertension Unspecified essential hypertension [facility] [place] [facility]* Diagnosis Type 2 diabetes mellitus with stage 3b chronic kidney disease, without long-term current use of insulin ([facility])- Primary documented in this encounter [facility] note* Diagnosis Stage 2 moderate COPD by GOLD classification ([facility])- Primary Angina of effort (HCC) Other and unspecified angina pectoris Chronic diastolic congestive heart failure (HCC) Chronic diastolic heart failure Pulmonary HTN ([facility]) Other chronic pulmonary heart diseases Chronic rhinitis Gastroesophageal reflux disease without esophagitis Esophageal reflux Chronic hypoxemic respiratory failure (HCC) Chronic respiratory failure [facility] [place] [facility]* Diagnosis Hyperlipidemia, unspecified hyperlipidemia type [facility] [place] [facility]* Diagnosis Type 2 diabetes mellitus with diabetic neuropathy, without long-term current use of insulin ([facility]) [facility] [place] [facility]* Diagnosis Essential hypertension Unspecified essential hypertension [facility] [place] [facility]* Diagnosis Moderate COPD (chronic obstructive pulmonary disease) ([facility])- Primary Chronic airway obstruction, not elsewhere classified Former smoker Personal history of tobacco use, presenting hazards to [facility] Pulmonary hypertension ([facility]) Other chronic pulmonary heart diseases Need for influenza vaccination Need for prophylactic vaccination and inoculation against influenza [facility] [place] [facility]* Diagnosis Moderate COPD (chronic obstructive pulmonary disease) (HCC) Chronic airway obstruction, not elsewhere classified [facility] [place] [facility]* Diagnosis Stage 2 moderate COPD by GOLD classification ([facility]) Chronic diastolic congestive heart failure (HCC)- Primary Chronic diastolic heart failure [facility] Diagnosis Chronic diastolic congestive heart failure (HCC)- Primary Chronic diastolic heart failure Pure hypercholesterolemia Essential hypertension Unspecified essential hypertension 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 Stented coronary artery Postsurgical percutaneous transluminal coronary angioplasty status Pulmonary HTN (HCC) Other chronic pulmonary heart diseases [facility] Diagnosis Essential hypertension- Primary Unspecified essential hypertension Type 2 diabetes mellitus with stage 3b chronic kidney disease, without long-term current use of insulin (HCC) 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 (HCC) [facility] [place] [facility]* Diagnosis Dementia without behavioral disturbance, psychotic disturbance, mood disturbance, or anxiety, unspecified dementia severity, unspecified dementia type (HCC)- Primary Memory loss Frequent falls Personal history of fall documented in this encounter [facility] note* Diagnosis Dementia without behavioral disturbance, psychotic disturbance, mood disturbance, or anxiety, unspecified dementia severity, unspecified dementia type (HCC)- Primary Memory loss Frequent falls Personal history of fall documented in this encounter [facility] for referral (narrative)* Outpatient Procedure (Routine) - Authorized Specialty Diagnoses / Procedures Referred By Ora ingram Referred To Contact [facility] Diagnoses Chronic obstructive pulmonary disease, unspecified COPD type (HCC) Chronic diastolic congestive heart failure (HCC) Procedures OXIMETRY WITH AMBULATION NONINVASIVE EAR/PULSE OXIMETRY Emerson Deleon MD [facility] [place] [address] Respiratory [place] [address] [place] [address] Referral ID Status Reason Start Date Expiration Date Visits Requested Visits Authorized [id number] Authorized Auto-Generat ed Referral 01/28/2022 11/02/2022 1 1 [facility] for referral (narrative)* Outpatient Procedure (Routine) - Pending Review Specialty Diagnoses / Procedures Referred By Contac t Referred To Contact [facility] Diagnoses Stage 2 moderate COPD by GOLD classification (HCC) Chronic hypoxemic respiratory failure (HCC) Procedures LUNG DIFFUSION CAPACITY ([facility]) DIFFUSING CAPACITY KarissaMiladis PA-C [address] [address] [address] Referral ID Status Reason Start Date Expiration Date Visits Requested Visits Authorized [id number] Pending Review Auto-Generat ed Referral 05/30/2022 06/29/2023 1 1 * Outpatient Procedure (Routine) - Pending Review Specialty Diagnoses / Procedures Referred By Contac t Referred To Contact [facility] Diagnoses Stage 2 moderate COPD by GOLD classification (HCC) Procedures SPIROMETRY BASELINE ONLY SPMTRY W/VC EXPIRATORY XIOMARA W/WO MXML VOL VNTJ Miladis Foster PA-C [address] [place] [address] [address] Referral ID Status Reason Start Date Expiration Date Visits Requested Visits Authorized [id number] Pending Review Auto-Generat ed Referral 05/30/2022 06/29/2023 1 1 [facility] for referral (narrative)* Outpatient Procedure (Routine) - Pending Review Specialty Diagnoses / Procedures Referred By Contac t Referred To Contact [facility] Diagnoses Dizzy Shortness of breath Procedures ECHO ECHO TTHRC R-T 2D W/WOM-MODE COMPL SPEC&COLR D Emilie Corral MD [address] [place] [address] [facility] [address] [address] Referral ID Status Reason Start Date Expiration Date Visits Requested Visits Authorized [id number] Pending Review Auto-Generat ed Referral 07/01/2022 06/24/2023 1 1 [facility] for referral (narrative)* Outpatient Procedure (Routine) - Closed Specialty Diagnoses / Procedures Referred By Contac t Referred To Contact [facility] Diagnoses Chronic diastolic congestive heart failure (HCC) Procedures ECG COMPLETE ECG ROUTINE ECG W/LEAST 12 LDS W/I&R Emilie Corral MD [address] [place] [address] [facility] [address] [place] [address] Referral ID Status Reason Start Date Expiration Date V isits Requested Visits Authorized [id number] Closed Auto-Generate d Referral 08/13/2022 11/02/2022 1 1 [facility] Outpatient Procedure (Routine) - Pending Review Specialty Diagnoses / Procedures Referred By Ora ingram Referred To Contact [facility] Diagnoses Chronic diastolic congestive heart failure (HCC) Procedures ECG COMPLETE ECG ROUTINE ECG W/LEAST 12 LDS W/I&R Emilie Corral MD [address] [place] [address] [facility] [address] [place] [address] Referral ID Status Reason Start Date Expiration Date Visits Requested Visits Authorized [id number] Pending Review Auto-Generat ed Referral 09/09/2023 09/08/2024 1 1 [facility] Summary Purpose Family History No Family History Records FoundNo Family History Records FoundNo Family History Records FoundNo Family History Records FoundNo Family History Records Found Advance Directives No Advanced Directives Records FoundDocuments on File Type Date Recorded 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 Advance Directive(s) 02/12/2012 12:00 AM Advance Directive(s) 12/18/2006 12:00 AM Documents on File Type Date Recorded 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 Advance Directive(s) 02/12/2012 12:00 AM Advance Directive(s) 12/18/2006 12:00 AM Documents on File Type Date Recorded 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 Advance Directive(s) 04/02/2022 12:26 PM Advance Directive(s) 02/12/2012 12:00 AM Advance Directive(s) 12/18/2006 12:00 AM Documents on File Type Date Recorded 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 Advance Directive(s) 04/02/2022 12:26 PM Advance Directive(s) 02/12/2012 12:00 AM Advance Directive(s) 12/18/2006 12:00 AM Documents on File Type Date Recorded 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 Advance Directive(s) 04/02/2022 12:26 PM Advance Directive(s) 02/12/2012 Advance Directive(s) 12/18/2006 Documents on File Type Date Recorded 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 Advance Directive(s) 04/02/2022 12:26 PM [...] DIFF WORK STATION Mia Haywood PA-C [address] [phone] [facility] Referral ID Status Reason Start Date Expiration Date Visits Requested Visits Authorized [id number] Authorized Auto-Generat ed Referral 12/10/2023 01/08/2025 1 1 Specialty Diagnoses / Procedures Referred By Ora ingram Referred To Contact [facility] Diagnoses Dementia without behavioral disturbance, psychotic disturbance, mood disturbance, or anxiety, unspecified dementia severity, unspecified dementia type (HCC) Memory loss Procedures MRI BRAIN WO IVCON MRI BRAIN BRAIN STEM W/O CONTRAST MATERIAL Mia Haywood PA-C [address] [id number] [facility] Referral ID Status Reason Start Date Expiration Date Visits Requested Visits Authorized [id number] Authorized Auto-Generat ed Referral 12/10/2023 01/08/2025 1 1 Additional Source Comments INFORMATION SOURCE (unrecogn ized section and content) DATE CREATED AUTHOR AUTHOR'S ORGANIZ ATION 07/27/2020 [facility] DATE CREATED AUTHOR AUTHOR'S ORGANIZ ATION 01/25/2021 [facility] DATE CREATED AUTHOR AUTHOR'S ORGANIZ ATION 09/13/2023 [facility] DATE CREATED AUTHOR AUTHOR'S ORGANIZ ATION 12/13/2023 [facility] Source Comments (unrecognize d section and content) In the event this informatio n is protected by the Federal Confidentiality of Alcohol and Drug Abuse Patient Records regulations: The Federal rules restrict any use of the information to criminally investigate or prosecute any alcohol or drug abuse patient.[facility] the event this information is protected by the Federal Confidentiality of Alcohol and Drug Abuse Patient Records regulations: The Federal rules restrict any use of the information to criminally investigate or prosecute any alcohol or drug abuse patient.[facility] the event this information is protected by the Federal Confidentiality of Alcohol and Drug Abuse Patient Records regulations: The Federal rules restrict any use of the information to criminally investigate or prosecute any alcohol or drug abuse patient.[facility] the event this information is protected by the Federal Confidentiality of Alcohol and Drug Abuse Patient Records regulations: The Federal rules restrict any use of the information to criminally investigate or prosecute any alcohol or drug abuse patient.[facility] the event this information is protected by the Federal Confidentiality of Alcohol and Drug Abuse Patient Records regulations: The Federal rules restrict any use of the information to criminally investigate or prosecute any alcohol or drug abuse patient.[facility] the event this information is protected by the Federal Confidentiality of Alcohol and Drug Abuse Patient Records regulations: The Federal rules restrict any use of the information to criminally investigate or prosecute any alcohol or drug abuse patient.[facility] the event this information is protected by the Federal Confidentiality of Alcohol and Drug Abuse Patient Records regulations: The Federal rules restrict any use of the information to criminally investigate or prosecute any alcohol or drug abuse patient.[facility] the event this information is protected by the Federal Confidentiality of Alcohol and Drug Abuse Patient Records regulations: The Federal rules restrict any use of the information to criminally investigate or prosecute any alcohol or drug abuse patient.[facility] the event this information is protected by the Federal Confidentiality of Alcohol and Drug Abuse Patient Records regulations: The Federal rules restrict any use of the information to criminally investigate or prosecute any alcohol or drug abuse patient.[facility] the event this information is protected by the Federal Confidentiality of Alcohol and Drug Abuse Patient Records regulations: The Federal rules restrict any use of the information to criminally investigate or prosecute any alcohol or drug abuse patient.[facility] the event this information is protected by the Federal Confidentiality of Alcohol and Drug Abuse Patient Records regulations: The Federal rules restrict any use of the information to criminally investigate or prosecute any alcohol or drug abuse patient.[facility] the event this information is protected by the Federal Confidentiality of Alcohol and Drug Abuse Patient Records regulations: The Federal rules restrict any use of the information to criminally investigate or prosecute any alcohol or drug abuse patient.[facility] the event this information is protected by the Federal Confidentiality of Alcohol and Drug Abuse Patient Records regulations: The Federal rules restrict any use of the information to criminally investigate or prosecute any alcohol or drug abuse patient.[facility] the event this information is protected by the Federal Confidentiality of Alcohol and Drug Abuse Patient Records regulations: The Federal rules restrict any use of the information to criminally investigate or prosecute any alcohol or drug abuse patient.[facility] DaytonIn the event this information is protected by the Federal Confidentiality of Alcohol and Drug Abuse Patient Records regulations: The Federal rules restrict any use of the information to criminally investigate or prosecute any alcohol or drug abuse patient.[facility] DaytonIn the event this information is protected by the Federal Confidentiality of Alcohol and Drug Abuse Patient Records regulations: The Federal rules restrict any use of the information to criminally investigate or prosecute any alcohol or drug abuse patient.[facility] DaytonIn the event this information is protected by the Federal Confidentiality of Alcohol and Drug Abuse Patient Records regulations: The Federal rules restrict any use of the information to criminally investigate or prosecute any alcohol or drug abuse patient.[facility] DaytonIn the event this information is protected by the Federal Confidentiality of Alcohol and Drug Abuse Patient Records regulations: The Federal rules restrict any use of the information to criminally investigate or prosecute any alcohol or drug abuse patient.[facility] DaytonIn the event this information is protected by the Federal Confidentiality of Alcohol and Drug Abuse Patient Records regulations: The Federal rules restrict any use of the information to criminally investigate or prosecute any alcohol or drug abuse patient.[facility] DaytonIn the event this information is protected by the Federal Confidentiality of Alcohol and Drug Abuse Patient Records regulations: The Federal rules restrict any use of the information to criminally investigate or prosecute any alcohol or drug abuse patient.[facility] DaytonIn the event this information is protected by the Federal Confidentiality of Alcohol and Drug Abuse Patient Records regulations: The Federal rules restrict any use of the information to criminally investigate or prosecute any alcohol or drug abuse patient.[facility] DaytonIn the event this information is protected by the Federal Confidentiality of Alcohol and Drug Abuse Patient Records regulations: The Federal rules restrict any use of the information to criminally investigate or prosecute any alcohol or drug abuse patient.[facility] DaytonIn the event this information is protected by the Federal Confidentiality of Alcohol and Drug Abuse Patient Records regulations: The Federal rules restrict any use of the information to criminally investigate or prosecute any alcohol or drug abuse patient.[facility] DaytonIn the event this information is protected by the Federal Confidentiality of Alcohol and Drug Abuse Patient Records regulations: The Federal rules restrict any use of the information to criminally investigate or prosecute any alcohol or drug abuse patient.[facility] DaytonIn the event this information is protected by the Federal Confidentiality of Alcohol and Drug Abuse Patient Records regulations: The Federal rules restrict any use of the information to criminally investigate or prosecute any alcohol or drug abuse patient.[facility] DaytonIn the event this information is protected by the Federal Confidentiality of Alcohol and Drug Abuse Patient Records regulations: The Federal rules restrict any use of the information to criminally investigate or prosecute any alcohol or drug abuse patient.[facility] DaytonIn the event this information is protected by the Federal Confidentiality of Alcohol and Drug Abuse Patient Records regulations: The Federal rules restrict any use of the information to criminally investigate or prosecute any alcohol or drug abuse patient.[facility] DaytonIn the event this information is protected by the Federal Confidentiality of Alcohol and Drug Abuse Patient Records regulations: The Federal rules restrict any use of the information to criminally investigate or prosecute any alcohol or drug abuse patient.[facility] DaytonIn the event this information is protected by the Federal Confidentiality of Alcohol and Drug Abuse Patient Records regulations: The Federal rules restrict any use of the information to criminally investigate or prosecute any alcohol or drug abuse patient.[facility] DaytonIn the event this information is protected by the Federal Confidentiality of Alcohol and Drug Abuse Patient Records regulations: The Federal rules restrict any use of the information to criminally investigate or prosecute any alcohol or drug abuse patient.[facility] DaytonIn the event this information is protected by the Federal Confidentiality of Alcohol and Drug Abuse Patient Records regulations: The Federal rules restrict any use of the information to criminally investigate or prosecute any alcohol or drug abuse patient.[facility] DaytonIn the event this information is protected by the Federal Confidentiality of Alcohol and Drug Abuse Patient Records regulations: The Federal rules restrict any use of the information to criminally investigate or prosecute any alcohol or drug abuse patient.[facility] DaytonIn the event this information is protected by the Federal Confidentiality of Alcohol and Drug Abuse Patient Records regulations: The Federal rules restrict any use of the information to criminally investigate or prosecute any alcohol or drug abuse patient.[facility] DaytonIn the event this information is protected by the Federal Confidentiality of Alcohol and Drug Abuse Patient Records regulations: The Federal rules restrict any use of the information to criminally investigate or prosecute any alcohol or drug abuse patient.[facility] DaytonIn the event this information is protected by the Federal Confidentiality of Alcohol and Drug Abuse Patient Records regulations: The Federal rules restrict any use of the information to criminally investigate or prosecute any alcohol or drug abuse patient.[facility] DaytonIn the event this information is protected by the Federal Confidentiality of Alcohol and Drug Abuse Patient Records regulations: The Federal rules restrict any use of the information to criminally investigate or prosecute any alcohol or drug abuse patient.[facility] DaytonIn the event this information is protected by the Federal Confidentiality of Alcohol and Drug Abuse Patient Records regulations: The Federal rules restrict any use of the information to criminally investigate or prosecute any alcohol or drug abuse patient.[facility] DaytonIn the event this information is protected by the Federal Confidentiality of Alcohol and Drug Abuse Patient Records regulations: The Federal rules restrict any use of the information to criminally investigate or prosecute any alcohol or drug abuse patient.[facility] DaytonIn the event this information is protected by the Federal Confidentiality of Alcohol and Drug Abuse Patient Records regulations: The Federal rules restrict any use of the information to criminally investigate or prosecute any alcohol or drug abuse patient.[facility] DaytonIn the event this information is protected by the Federal Confidentiality of Alcohol and Drug Abuse Patient Records regulations: The Federal rules restrict any use of the information to criminally investigate or prosecute any alcohol or drug abuse patient.[facility] DaytonIn the event this information is protected by the Federal Confidentiality of Alcohol and Drug Abuse Patient Records regulations: The Federal rules restrict any use of the information to criminally investigate or prosecute any alcohol or drug abuse patient.[facility] DaytonIn the event this information is protected by the Federal Confidentiality of Alcohol and Drug Abuse Patient Records regulations: The Federal rules restrict any use of the information to criminally investigate or prosecute any alcohol or drug abuse patient.[facility] DaytonIn the event this information is protected by the Federal Confidentiality of Alcohol and Drug Abuse Patient Records regulations: The Federal rules restrict any use of the information to criminally investigate or prosecute any alcohol or drug abuse patient.[facility] DaytonIn the event this information is protected by the Federal Confidentiality of Alcohol and Drug Abuse Patient Records regulations: The Federal rules restrict any use of the information to criminally investigate or prosecute any alcohol or drug abuse patient.[facility] DaytonIn the event this information is protected by the Federal Confidentiality of Alcohol and Drug Abuse Patient Records regulations: The Federal rules restrict any use of the information to criminally investigate or prosecute any alcohol or drug abuse patient.[facility] DaytonIn the event this information is protected by the Federal Confidentiality of Alcohol and Drug Abuse Patient Records regulations: The Federal rules restrict any use of the information to criminally investigate or prosecute any alcohol or drug abuse patient.[facility] DaytonIn the event this information is protected by the Federal Confidentiality of Alcohol and Drug Abuse Patient Records regulations: The Federal rules restrict any use of the information to criminally investigate or prosecute any alcohol or drug abuse patient.[facility] DaytonIn the event this information is protected by the Federal Confidentiality of Alcohol and Drug Abuse Patient Records regulations: The Federal rules restrict any use of the information to criminally investigate or prosecute any alcohol or drug abuse patient.[facility] DaytonIn the event this information is protected by the Federal Confidentiality of Alcohol and Drug Abuse Patient Records regulations: The Federal rules restrict any use of the information to criminally investigate or prosecute any alcohol or drug abuse patient.[facility] Reason for Visit (unrecogniz ed section and [...] EST COPD Jasmin Avendano MD [address] [place] [address] Miladis Foster PA-C [address] [place] [address] Referral ID Status Reason Start Date Expiration Date Visits Re quested Visits Authorized [id number] Closed 02/05/2023 11/02/2023 1 1 Reason Comments Follow Up Specialty Diagnoses / Procedures Referred By Ora t Referred To Contact [facility] Diagnoses COPD (chronic obstructive pulmonary disease) (HCC) COPD Procedures EST PATIENT VISIT LEVEL 5 [facility]monology [facility] [address] [place] [address] Referral ID Status Reason Start Date Expiration Date V isits Requested Visits Authorized [id number] Closed OON/Self Pay Override 12/27/2019 11/02/2020 99 99 Specialty Diagnoses / Procedures Referred By Ora t Referred To Contact Radiology / RADIO GEN [facility] Diagnoses Chronic obstructive pulmonary disease, unspecified COPD type (HCC) [J44.9] Chronic diastolic congestive heart failure (HCC) [I50.32] Procedures XR CHEST Emerson Calvo MD [address] [facility] [place] [address] Radio General [facility] Mob [address] [place] [address] Referral ID Status Reason Start Date Expiration Date Visits Re quested Visits Authorized [id number] Closed 01/28/2022 04/28/2022 1 1 Reason Comments Results NT pro BNP Reason Comments Spirometry Specialty Diagnoses / Procedures Referred By Ora t Referred To [facility] Diagnoses Chronic obstructive pulmonary disease, unspecified COPD type (HCC) Chronic diastolic congestive heart failure (HCC) Procedures OXIMETRY WITH AMBULATION NONINVASIVE EAR/PULSE OXIMETRY MULTIPLE DETER Emerson Calvo MD [address] [place] [address] [address] Referral ID Status Reason Start Date Expiration Date V isits Requested Visits Authorized [id number] Closed Auto-Generate d Referral 01/28/2022 11/02/2022 1 [...] Procedures Referred By Contac t Referred To [facility] Pulmonary and Critical Care Medicine / PULMONARY MEDICINE Diagnoses Follow-up exam F/U per LEE Procedures OFFICE/OUTPATIENT ESTABLISHED HIGH MDM 40-54 MIN RI EST PULM GENERAL Ady Ignacio MD [address] [place] [address] Miladis Foster, PACassiusC [address] [address] Referral ID Status Reason Start Date Expiration Date Visits Re quested Visits Authorized [id number] Closed 05/24/2022 11/02/2022 1 1 Reason Comments zio patch Reason Onset Date Comments Refill Request 07/17/2022 Reason Onset Date Comments Refill Request 07/18/2022 Reason Onset Date Comments Refill Request 08/09/2022 Reason Comments Patient Update Reason Comments Established Patient Follow-Up Specialty Diagnoses / Procedures Referred By Contac t Referred To [facility] Diagnoses Stage 2 moderate COPD by GOLD classification ([facility]) Procedures SPIROMETRY BASELINE ONLY SPMTRY W/VC EXPIRATORY XIOMARA W/WO MXML VOL VNTJ Miladis Foster PA-C [address] [place] [address] [address] Referral ID Status Reason Start Date Expiration Date V isits Requested Visits Authorized [id number] Closed Auto-Generate d Referral 08/12/2022 11/02/2022 1 1 Specialty Diagnoses / Procedures Referred By Contac t Referred To [facility] Diagnoses Stage 2 moderate COPD by GOLD classification (HCC) Chronic hypoxemic respiratory failure (HCC) Procedures LUNG DIFFUSION CAPACITY ([facility]) DIFFUSING CAPACITY Miladis Foster PA-C [address] [place] [address] Respiratory [place] [address] [place] [address] Referral ID Status Reason Start Date Expiration Date V isits Requested Visits Authorized [id number] Closed Auto-Generate d Referral 08/12/2022 11/02/2022 1 1 Reason Onset Date Comments Established Patient COPD Immunizations 08/30/2022 Flu vaccination Specialty Diagnoses / Procedures Referred By Contac t Referred To Contact Pulmonary and Critical Care Medicine / PULMONARY MEDICINE Diagnoses Lung Diffusion / Stevie / 3 month F/U Procedures RI EST COPD Jasmin Avendano MD [address] [facility] [place] [address] Jasmin Avendano MD [address] [place] [address] Referral ID Status Reason Start Date Expiration Date Visits Re quested Visits Authorized [id number] Closed 08/30/2022 11/28/2022 1 1 Reason Onset [...] Reason Comments Rx Refills albuterol HFA (CHINA ELSY HFA) 90 mcg/actuation inhaler Reason Comments Recheck Reason Comments New Patient Evaluation Care Teams (unrecognized sec tion and content) Packaging Mechanic Relationship Specialty Start Date End Date Ady Ignacio MD [address] [place], [place] [id number] PCP - General Internal Medicine 02/07/15 Valentino, Florence S [address] [place] [address] Physician Cardiology 03/02/19 Packaging Mechanic Relationship Specialty Start Date End Date Ady Ignacio MD [address] [facility] [place] [address] PCP - General Internal Medicine 02/07/15 Valentino, Florence S [address] [place] [address] Physician Cardiology 03/02/19 Packaging Mechanic Relationship Specialty Start Date End Date Ady Ignacio MD [address] [facility] [place] [address] PCP - General Internal Medicine 02/07/15 Valentino, Florence S [address] [place] [address] Physician Cardiology 03/02/19 Packaging Mechanic Relationship Specialty Start Date End Date Ady Ignacio MD [address] [facility] [place] [address] PCP - General Internal Medicine 02/07/15 Valentino, George S [address] [place] [address] Physician Cardiology 03/02/19 Packaging Mechanic Relationship Specialty Start Date End Date Ady Ignacio MD [address] [facility] [place] [address] PCP - General Internal Medicine 02/07/15 Valentino, Florence S [address] [place] [address] Physician Cardiology 03/02/19 Packaging Mechanic Relationship Specialty Start Date End Date Ady Ignacio MD [address] [facility] [place] [address] PCP - General Internal Medicine 02/07/15 Valentino, Florence S [address] [place] [address] Physician Cardiology 03/02/19 Packaging Mechanic Relationship Specialty Start Date End Date Ady Ignacio MD [address] [facility] [place] [address] PCP - General Internal Medicine 02/07/15 Valentino, George S [address] [place] [address] Physician Cardiology 03/02/19 Packaging Mechanic Relationship Specialty Start Date End Date Ady Ignacio MD [address] [place] [address] PCP - General Internal Medicine 02/07/15 Valentino, Florence S [address] [place] [address] Physician Cardiology 03/02/19 Packaging Mechanic Relationship Specialty Start Date End Date Ady Ignacio MD [address] [place] [address] PCP - General Internal Medicine 02/07/15 Valentino, Florence S [address] [place] [address] Physician Cardiology 03/02/19 Packaging Mechanic Relationship Specialty Start Date End Date Ady Ignacio MD [address] [place] [address] PCP - General Internal Medicine 02/07/15 Valentino, Florence S [address] [place] [address] Physician Cardiology 03/02/19 Packaging Mechanic Relationship Specialty Start Date End Date Ady Ignacio MD [address] [facility] [place] [address] PCP - General Internal Medicine 02/07/15 Valentino, Florence S [address] [place] [address] Physician Cardiology 03/02/19 Packaging Mechanic Relationship Specialty Start Date End Date Ady Ignacio MD [address] [facility] [place] [address] PCP - General Internal Medicine 02/07/15 Valentino, Florence S [address] [place] [address] Physician Cardiology 03/02/19 Packaging Mechanic Relationship Specialty Start Date End Date Ady Ignacio MD [address] [facility] [place] [address] PCP - General Internal Medicine 02/07/15 Valentino, Florence S [address] [place] [address] Physician Cardiology 03/02/19 Packaging Mechanic Relationship Specialty Start Date End Date Ady Ignacio MD [address] [facility] [place] [address] PCP - General Internal Medicine 02/07/15 Valentino, George S [address] [place] [address] Physician Cardiology 03/02/19 Packaging Mechanic Relationship Specialty Start Date End Date Ady Ignacio MD [address] [facility] [place] [address] PCP - General Internal Medicine 02/07/15 Valentino, George S [address] [place] [address] Physician Cardiology 03/02/19 Packaging Mechanic Relationship Specialty Start Date End Date Ady Ignacio MD [address] [facility] [place] [address] PCP - General Internal Medicine 02/07/15 Valentino, George S [address] [place] [address] Physician Cardiology 03/02/19 Packaging Mechanic Relationship Specialty Start Date End Date Ady Ignacio MD [address] [facility] [place] [address] PCP - General Internal Medicine 02/07/15 Valentino, Florence S [address] [place] [address] Physician Cardiology 03/02/19 Packaging Mechanic Relationship Specialty Start Date End Date Ady Ignacio MD [address] [facility] [place] [address] PCP - General Internal Medicine 02/07/15 Valentino, Florence S [address] [place] [address] Physician Cardiology 03/02/19 Packaging Mechanic Relationship Specialty Start Date End Date Ady Ignacio MD [address] [facility] [place] [address] PCP - General Internal Medicine 02/07/15 Valentino, George S [address] [place] [address] Physician Cardiology 03/02/19 Packaging Mechanic Relationship Specialty Start Date End Date Abril Salas MD [address] [facility] [place] [address] PCP - General Internal Medicine 12/03/22 Valentino, Florence S [address] [place] [address] Physician Cardiology 03/02/19 Packaging Mechanic Relationship Specialty Start Date End Date Abril Salas MD [address] [facility] [place] [address] PCP - General Internal Medicine 12/03/22 Valentino, George S [address] [place] [address] Physician Cardiology 03/02/19 Packaging Mechanic Relationship Specialty Start Date End Date Abril Salas MD [address] [facility] [place] [address] PCP - General Internal Medicine 12/03/22 Valentino, George S [address] [place] [address] Physician Cardiology 03/02/19 Packaging Mechanic Relationship Specialty Start Date End Date Abril Salas MD [address] [facility] [place] [address] PCP - General Internal Medicine 12/03/22 Valentino, Florence S [address] [place] [address] Physician Cardiology 03/02/19 Packaging Mechanic Relationship Specialty Start Date End Date Abril Salas MD [address] [facility] [place] [address] PCP - General Internal Medicine 12/03/22 Valentino, Florence S [address] [place] [address] Physician Cardiology 03/02/19 Packaging Mechanic Relationship Specialty Start Date End Date Abril Salas MD [address] [place] [address] PCP - General Internal Medicine 12/03/[address]ar [address] [address] Physician Cardiology 03/02/19 Packaging Mechanic Relationship Specialty Start Date End Date Abril Salas MD [address] [place] [address] PCP - General Internal Medicine 12/03/22 George Avelar MD [address] [address] Physician Cardiology 03/02/19 Packaging Mechanic Relationship Specialty Start Date End Date Abril Salas MD [address] [place] [address] PCP - General Internal Medicine 12/03/22 George Avelar MD [address] [address] Physician Cardiology 03/02/19 Packaging Mechanic Relationship Specialty Start Date End Date Abril Salas MD [address] [place] [address] PCP - General Internal Medicine 12/03/22 George Avelar MD [address] [address] Physician Cardiology 03/02/19 Packaging Mechanic Relationship Specialty Start Date End Date Abril Salas MD [address] [place], [place] [address] PCP - General Internal Medicine 12/03/22 George Avelar MD [address] [place] [address] Physician Cardiology 03/02/19 Packaging Mechanic Relationship Specialty Start Date End Date Abril Salas MD [address] [place], [place] [address] PCP - General Internal Medicine 12/03/22 George Avelar MD [address] [address] Physician Cardiology 03/02/19 Packaging Mechanic Relationship Specialty Start Date End Date Abril Salas MD [address] [place], [place] [address] PCP - General Internal Medicine 12/03/22 George Avelar MD [address] [address] Physician Cardiology 03/02/19 Packaging Mechanic Relationship Specialty Start Date End Date Abril Salas MD [address] [place] [address] PCP - General Internal Medicine 12/03/22 George Avelar MD [address] [address] Physician Cardiology 03/02/19 FOR RECORDS PERTAINING TO [...] BE BASED ON THE PRIMARY CLINICAL RECORDS. [facility]. provides no warranty or guarantee of the accuracy or completeness of information in this document.
[2023-12-25] MEDS: 0.9% Saline Lock 10 ML Syringe IV (20:33)
[2023-12-25] MEDS: Azithromycin 250 MG Tablet 500 MG PO (20:33)
[2023-12-25] MEDS: Aspirin 81 MG TAB.CHEW PO (20:33)
[2023-12-25 20:34] LABS: Troponin-I HS 11 pg/mL (3.0-54.0)
[2023-12-25] MEDS: 0.9% Normal Saline (1000mL) 1,000 ML 50 ML IV (20:34)
[2023-12-25 20:56] LABS: Bedside Glucose 157 mg/dL (74-106)
[2023-12-25 23:01] LABS: Troponin-I HS 9 pg/mL (3.0-54.0)
[2023-12-26] VITALS (14 sets, daily range): BP systolic 123–147; BP diastolic 52–64; PULSE 98–121; RESP 16–20; TEMP 36.3–36.9; O2SAT 92–98
[2023-12-26 02:31] LABS: Troponin-I HS 8 pg/mL (3.0-54.0)
[2023-12-26] MEDS: Insulin Lispro 100 UNIT/ML INSULN.PEN SC ×4 (06:03→21:45)
[2023-12-26 06:39] LABS: Bedside Glucose 296 mg/dL (74-106)
[2023-12-26] MEDS: Ipratropium/Albuterol Sulfate 3 ML AMPUL.NEB INHALATION ×5 (07:28→23:25)
[2023-12-26] MEDS: Azithromycin 250 MG Tablet 500 MG PO (08:41)
[2023-12-26] MEDS: guaiFENesin 1,200 MG Tablet 1200 MG PO ×2 (08:42→21:50)
[2023-12-26] MEDS: Enoxaparin 30 MG/0.3 ML Syringe SC (08:42)
[2023-12-26] MEDS: Aspirin 81 MG TAB.CHEW PO (08:46)
--- NOTE | 2023-12-26 10:30 | CASEMGMT ---
ARAVIND ROBBINS Face to Face with patient for initial transition planning/care coordination assessment. RN CM introduced self and role at [facility]. Patient lying in bed, alert and oriented. Patient willing to participate in assessment and is able to answer all questions appropriately. Care providers, pharmacy, and demographics verified. Patient wishes to discharge home and would like HHC at discharge. CM to provide patient with HHC list. Patient states she has no further needs or concerns at this time. CM to follow for discharge planning needs that may arise. PCP: Maritza Specialists: none Preferred Pharmacy: [facility] Insurance: [employer] Prescription Benefit: yes Living Will/HPOA: yes, daughter Katherin García LNOK: daughter Living Arrangements: Patient lives alone in a single story home with 2 steps and railing to enter the home. Patient states she is independent at home. Transportation: daughter DME/HHC: Patient has cane, shower chair, raised toilet, grab bars, and pulse ox at home. No previous HHC or SNF. Will monitor for home oxygen at discharge. Disposition Plan: Patient to discharge home with HHC, family support, and follow-up plans in place. Chen VIDALES, RN, CM
--- NOTE | 2023-12-26 10:44 | PCM.PROGNOTE ---
Subjective Subjective Patient seen and examined. She said she felt much better today. She said her shortness of breath had improved. She denied any chest pain, palpitations, dizziness, nausea, vomiting or any other symptoms. Review of systems is otherwise negative. Objective Data Objective Data Vital Signs: Vital Signs Temp Pulse Resp BP Pulse Ox O2 Del Method O2 Flow Rate 97.5 F L 112 H 18 133/58 H 92 Nasal Cannula 2 12/26/23 08:50 12/26/23 08:50 12/26/23 08:50 12/26/23 08:50 12/26/23 08:50 12/26/23 08:50 12/26/23 08:50 Oxygen Flow Rate (L/min) 2 Oxygen Delivery Method Nasal Cannula Weight: 117 lb 8.102 oz Body Mass Index (BMI) 25.4 Intake & Output: Intake and Output for Last 24 Hours 12/24/23 12/25/23 12/26/23 23:59 23:59 23:59 Intake Total 100 / 100 Balance 100 / 100 Medical Nutrition Assessment Dietitian: Malnutrition Criteria Met Start: 12/26/23 10:42 Freq: Status: Active Protocol: Document 12/26/23 10:42 AG (Rec: 12/26/23 10:43 AG Tablet) Nutrition Malnutrition Evidence of Malnutrition Exists Yes Malnutrition (moderate): Acute Illness/Injury Evidenced By Suboptimal Energy Intake ( Moderate),Weight Loss ( Moderate) Clinical Problem Acute Disease or Injury Related Malnutrition Etiology moderate, acute malnutrition related to inadequate energy intake Signs/Symptoms as evidenced by unintentional wt loss of 5% x 1 month, estimated PO intake meeting < 75% of estimated energy needs > 1 week Status Active Problem Recommendation Dietitian Recommendations/Changes will liberalize diet to regular/sodium restricted, glucerna 120mL 4x/day w/ medpass given evidence of malnutrition Lab / Micro Data 12/25/23 14:58 12/25/23 14:58 Labs: Laboratory Results - last 24 hr 12/25/23 14:28: Lactic Acid 1.1 12/25/23 14:58: WBC 11.9 H, RBC 4.36, Hgb 11.6 L, Hct 36.5 L, MCV 83.7, MCH 26.6 L, MCHC 31.8 L, RDW Std Deviation 47.4 H, RDW Coeff of Christina 15.5 H, Plt Count 359, MPV 9.4, Immature Gran % (Auto) 0.400, Neut % (Auto) 81.2 H, Lymph % (Auto) 8.5 L, [place] % (Auto) 9.3, Eos % (Auto) 0.3, Baso % (Auto) 0.3, Absolute Neuts (auto) 9.7 H, Absolute Lymphs (auto) 1.01, Nucleated RBC % 0, Sodium 133 L, Potassium 4.3, Chloride 100, Carbon Dioxide 27.0, Anion Gap 6, BUN 21 H, Creatinine 1.11 H, Estim Creat Clear Calc 28.98, Est GFR (MDRD) Af Amer 60, Est GFR (MDRD) Non-Af 49 L, BUN/Creatinine Ratio 18.9, Glucose 111 H, Calcium 9.5, Total Bilirubin 0.50, AST 13 L, ALT 15, Alkaline Phosphatase 80, Total Protein 6.7, Albumin 3.0 L, Globulin 3.7, Albumin/Globulin Ratio 0.8 L, Lipase 55 12/25/23 19:50: Troponin I High Sens 11 12/25/23 20:30: POC Glucose 157 H 12/25/23 21:59: Troponin I High Sens 9 12/26/23 02:02: Troponin I High Sens 8, TSH 0.30 L 12/26/23 06:02: POC Glucose 296 H Micro: Microbiology 12/25/23 20:45 Sputum, Expectorated/Coughed Gram Stain - Final 12/25/23 19:55 Mucosa - Nasopharyngeal Respiratory Panel (PCR) - Final 12/25/23 15:02 Mucosa - Nose SARS-CoV-2, Influenza & RSV (PCR) - Final Radiography Diagnostic Testing: Radiology Impression Chest X-Ray 12/25/23 15:50 IMPRESSION: No radiographic evidence of acute cardiopulmonary disease. Electronically Signed: Sterling Burns MD at 16:44 EST , Rhythm Strip Rhythm Strip: Sinus Rhythm Rate: 83 Ectopy: None Physical Exam Const alert, oriented x3 and no apparent distress General Appearance: cooperative HEENT normocephalic, head/scalp atraumatic, moist oral mucous membranes and oropharynx normal Eyes PERRL and EOMs intact bilaterally Neck no lymphadenopathy and supple Lymph Lymphatic: no lymphadenopathy noted and no lymphedema noted Cardio regular rate, regular rhythm, S1 normal heart sound and S2 normal heart sound GI GI Narrative: diminished breath sounds bibasally, no wheezes or crackles. On 2L of oxygen. Extremity normal capillary refill and no clubbing, cyanosis or edema General Extremity: no tenderness to palpation of joints or extremities Skin General Skin Exam: no breakdown Neuro CN's II-XII intact bilaterally, no focal motor deficits, no sensory deficits noted and deep tendon reflexes 2+ bilaterally Motor Exam: strength 5/5 throughout and general weakness Psych thought process normal and cooperative Appearance: appropriate Assessment & Plan Assessment/Plan (1) Acute exacerbation of chronic obstructive pulmonary disease: (2) Non-cardiac chest pain: PLAN: Plan #Hypoxia due to acut COPD exacerbation Was saturating at 79% on room air. Feels much better. On 2 L of oxygen. Titrate oxygen to maintain saturation above 90%. Breathing treatments with good diabetes. COVID test and RSV were negative as well as flu. On IV Solu-Medrol. On PO azithromycin. #Chest pain Appears to be more musculoskeletal. Troponins not elevated. 2D echo done showed EF of 70% with hyperdynamic left ventricular systolic function and pulmonary artery systolic pressure 55 mmHg, indicating moderate pulmonary hypertension. #History of CAD s/p stents: On statin and beta-alberto. Was taken off of aspirin on account of history of nosebleeds. #Type 2 diabetes mellitus: On insulin sliding scale. Accu-Cheks ACHS. #GERD: On PPI #CKD stage IIIa: Stable. At baseline #Hypertension: On amlodipine and losartan #DVT prophylaxis: Lovenox Charges/Coding Visit Charges Inpatient E&M: 58972 Subs Hosp L2
--- NOTE | 2023-12-26 11:23 | CASEMGMT ---
Discharge Planning A list of?HH providers including quality and resource use data and consistent with the patient's preferred geographic region, medical needs, and insurance network was created in [facility] Guide.? This list was provided to the RN ITZEL. Eliza Juarez, Discharge Planning Asst.
--- NOTE | 2023-12-26 11:29 | CASEMGMT ---
Addendum entered by Chen Langley 12/26/23 13:25: RN CM received call back from [facility] and they are able to accept patient with planned start of care for Friday12/30/23. RN CM updated patient and discharge plan. Original Note: RN CM in to discuss needs at discharge, daughter at bedside. [facility] list provided to patient. Patient prefers [facility]. RN CM called and made referral, awaiting acceptanc. CM will continue to follow this patient and plan for a safe discharge.
[2023-12-26 11:58] LABS: Bedside Glucose 279 mg/dL (74-106)
[2023-12-26] MEDS: Dicyclomine 10 MG Capsule PO ×2 (14:54→21:47)
[2023-12-26] MEDS: Metoprolol Tartrate 50 MG Tablet PO ×2 (14:54→21:50)
--- NOTE | 2023-12-26 15:37 | CHAPLAIN ---
Type of Pastoral Visit _x__ Initial Visit ___ Follow-up Visit ___ On-call Visit ___ General Patient Visit ___ Spiritual Assessment ___ Family Conference ___ Bereavement ___ Rapid Response ___ Code Blue ___ Other (describe below) Pastoral Care Referral From _x__ Patient ___ Family ___ Nurse ___ Physician ___ Retail Business Development Manager ___ Rolled [employer] Operator ___ Other (describe below) Sacrament/Intervention _x__ Active listening ___ Anointing ___ Sikhism ___ Bereavement ___ Communion _x__ Shari exploration ___ _x__ Life review _x__ Prayer ___ Reconciliation ___ Sacrament of Sick _x__ Supportive presence ___ Wedding ___ Other (describe below) Pastoral Comments patient and daughter are in the room; both are welcoming as patient explains her health need; pt has had struggles physically and is thankful to have some improvements since being admitted; pt gives some life review and shari background; pt wants prayer for support and is glad to have someone to talk with as she does not get out of the house much ;
[2023-12-26 16:57] LABS: T4 Free Direct 1.17 ng/dL (0.76-1.46)
[2023-12-26 17:06] LABS: Bedside Glucose 201 mg/dL (74-106)
[2023-12-26] MEDS: Creon 24,000 unit DR Capsule 3 CAP PO (17:13)
[2023-12-26] MEDS: Colestipol 1 GM TABLET PO (17:14)
[2023-12-26] MEDS: Budesonide Respules 0.5 MG/2 ML AMPUL.NEB. INHALATION (19:32)
[2023-12-26] MEDS: Multivitamin (Healthy Eyes) Capsule 1 CAP PO (21:49)
[2023-12-26] MEDS: Atorvastatin Calcium 40 MG Tablet PO (21:49)
[2023-12-26] MEDS: 0.9% Saline Lock 10 ML Syringe IV (21:53)
[2023-12-26 22:44] LABS: Bedside Glucose 173 mg/dL (74-106)
[2023-12-27] VITALS (11 sets, daily range): BP systolic 125–149; BP diastolic 52–90; PULSE 95–105; RESP 16–24; TEMP 36.6–36.8; O2SAT 94–97
[2023-12-27] MEDS: Ipratropium/Albuterol Sulfate 3 ML AMPUL.NEB INHALATION ×5 (03:25→19:55)
[2023-12-27 06:03] LABS: Absolute Lymphocyte Count 0.78 X10^3/uL (0.83-4.51); Absolute Neutrophil Count 18.7 X10^3/uL (2.0-7.7); Basophil# 0.01 X10^3/uL; Hematocrit 30.7 % (37-47); Lymphocyte # 0.78 X10^3/ul (0.83-4.51); Lymphocyte % 3.9 % (19-41); Mean Corp Hgb Conc 32.6 g/dL (32-36); Mean Corpuscular Hgb 26.5 pg (27.0-32.0); Mean Corpuscular Volume 81.2 fL (81-99); Mean Platelet Vol. 9.7 fl (6.2-12.0); Monocyte# 0.55 X10^3/uL; Monocyte% 2.7 % (0-10); NRBC Flagged by Analyzer 0 % (0-5); Neutrophil # 18.69 X10^3/uL (2.7-7.7); Neutrophil % 92.3 % (47-70); Platelet Count 373 K/mm3 (150-450); RBC Distribution Width SD 44.8 fl (35.1-43.9); Red Blood Count 3.78 M/mm3 (4.2-5.4); White Blood Count 20.3 K/mm3 (4.4-11.0)
[2023-12-27] MEDS: Insulin Lispro 100 UNIT/ML INSULN.PEN SC ×4 (06:31→20:20)
[2023-12-27] MEDS: Dicyclomine 10 MG Capsule PO ×3 (06:33→20:23)
[2023-12-27] MEDS: 0.9% Saline Lock 10 ML Syringe IV ×2 (06:37→08:54)
[2023-12-27 06:43] LABS: Anion Gap 6 (5-15); BUN 22 mg/dL (7-18); BUN/Creat Ratio 23.4 RATIO (10-20); Calcium,Total 8.7 mg/dL (8.5-10.1); Chloride 93 mmol/L (98-107); Creatinine, Serum 0.94 mg/dL (0.55-1.02); EST Glomerular Filtration Rate 60 mL/min (>60); Est Glom Filt Rate - Afr Amer 72 mL/min (>60); Estimated Creatinine Clearance 29.71 ml/min; Glucose 176 mg/dL (74-106); Potassium 4.4 mmol/L (3.5-5.1); Sodium Level 125 mmol/L (136-145)
[2023-12-27 06:59] LABS: Bedside Glucose 170 mg/dL (74-106)
[2023-12-27] MEDS: Budesonide Respules 0.5 MG/2 ML AMPUL.NEB. INHALATION (07:13)
[2023-12-27] MEDS: Creon 24,000 unit DR Capsule 3 CAP PO ×3 (08:49→16:58)
[2023-12-27] MEDS: Aspirin 81 MG TAB.CHEW PO (08:49)
[2023-12-27] MEDS: Multivitamin (Healthy Eyes) Capsule 1 CAP PO ×2 (08:49→20:23)
[2023-12-27] MEDS: Metoprolol Tartrate 50 MG Tablet PO ×2 (08:50→20:23)
[2023-12-27] MEDS: Losartan Potassium 25 MG Tablet PO (08:50)
[2023-12-27] MEDS: Azithromycin 250 MG Tablet 500 MG PO (08:50)
[2023-12-27] MEDS: guaiFENesin 1,200 MG Tablet 1200 MG PO ×2 (08:51→20:24)
[2023-12-27] MEDS: amLODIPine 5 MG Tablet PO (08:51)
[2023-12-27] MEDS: Pantoprazole Sodium 40 MG Tablet PO (08:51)
[2023-12-27] MEDS: Isosorbide Mononitrate 30 MG Tablet PO (08:51)
[2023-12-27] MEDS: Enoxaparin 30 MG/0.3 ML Syringe SC (08:52)
[2023-12-27] MEDS: Multivitamins,Therapeutic Tablet 1 TABLET PO (08:52)
[2023-12-27] MEDS: Glimepiride 1 MG Tablet PO (08:53)
[2023-12-27] MEDS: 0.9% Normal Saline (1000mL) 1,000 ML 100 ML IV ×2 (08:58→18:13)
[2023-12-27] MEDS: Calcium Carbonate 500 MG Tablet PO (09:03)
--- NOTE | 2023-12-27 09:29 | PCM.PROGNOTE ---
Subjective Subjective Patient seen and examined. She said she felt much better. She had no active complaints. She said her shortness of breath is much better. She denied any nausea, vmiting, fever, chills or any other symptoms. Review of systems is otherwise negative. She is on 3L of oxygen by nasal canula. Objective Data Objective Data Vital Signs: Vital Signs Temp Pulse Resp BP Pulse Ox O2 Del Method O2 Flow Rate 98 F 97 18 146/90 H 95 Nasal Cannula 3 12/27/23 08:47 12/27/23 08:50 12/27/23 08:47 12/27/23 08:47 12/27/23 08:47 12/27/23 08:47 12/27/23 08:47 Oxygen Flow Rate (L/min) 3 Oxygen Delivery Method Nasal Cannula Weight: 117 lb 8.102 oz Body Mass Index (BMI) 25.4 Intake & Output: Intake and Output for Last 24 Hours 12/25/23 12/26/23 12/27/23 23:59 23:59 23:59 Intake Total 100 / 100 1755 / 1755 Balance 100 / 100 1755 / 1755 Medical Nutrition Assessment Dietitian: Malnutrition Criteria Met Start: 12/26/23 10:42 Freq: Status: Active Protocol: Document 12/26/23 10:42 AG (Rec: 12/26/23 10:43 AG Tablet) Nutrition Malnutrition Evidence of Malnutrition Exists Yes Malnutrition (moderate): Acute Illness/Injury Evidenced By Suboptimal Energy Intake ( Moderate),Weight Loss ( Moderate) Clinical Problem Acute Disease or Injury Related Malnutrition Etiology moderate, acute malnutrition related to inadequate energy intake Signs/Symptoms as evidenced by unintentional wt loss of 5% x 1 month, estimated PO intake meeting < 75% of estimated energy needs > 1 week Status Active Problem Recommendation Dietitian Recommendations/Changes will liberalize diet to regular/sodium restricted, glucerna 120mL 4x/day w/ medpass given evidence of malnutrition Lab / Micro Data 12/27/23 05:38 12/27/23 05:38 Labs: Laboratory Results - last 24 hr 12/26/23 02:02: Free T4 1.17 12/26/23 11:20: POC Glucose 279 H 12/26/23 16:46: POC Glucose 201 H 12/26/23 21:43: POC Glucose 173 H 12/27/23 05:38: WBC 20.3 H, RBC 3.78 L, Hgb 10.0 L, Hct 30.7 L, MCV 81.2, MCH 26.5 L, MCHC 32.6, RDW Std Deviation 44.8 H, RDW Coeff of Christina 15.0 H, Plt Count 373, MPV 9.7, Immature Gran % (Auto) 1.100 H, Neut % (Auto) 92.3 H, Lymph % (Auto) 3.9 L, [place] % (Auto) 2.7, Eos % (Auto) 0.0, Baso % (Auto) 0.0, Absolute Neuts (auto) 18.7 H, Absolute Lymphs (auto) 0.78 L, Nucleated RBC % 0, Sodium 125 L, Potassium 4.4, Chloride 93 L, Carbon Dioxide 26.0, Anion Gap 6, BUN 22 H, Creatinine 0.94, Estim Creat Clear Calc 29.71, Est GFR (MDRD) Af Amer 72, Est GFR (MDRD) Non-Af 60, BUN/Creatinine Ratio 23.4 H, Glucose 176 H, Calcium 8.7 12/27/23 06:30: POC Glucose 170 H Micro: Microbiology 12/25/23 20:45 Sputum, Expectorated/Coughed Gram Stain - Final 12/25/23 19:55 Mucosa - Nasopharyngeal Respiratory Panel (PCR) - Final 12/25/23 15:02 Mucosa - Nose SARS-CoV-2, Influenza & RSV (PCR) - Final Radiography Diagnostic Testing: Radiology Impression Echocardiogram 12/25/23 18:51 Interpretation Summary Normal LV size. Left ventricular systolic function is hyperdynamic. The left ventricular ejection fraction is 70 %. Pulmonary artery systolic pressure is 55 mmHg. Moderate pulmonary hypertension. Ordering Physician: Yvette Taveras Referring Physician: Maria Antonia Salas M.D. Performed By: Lisa Chavez RDCS Rhythm Strip Rhythm Strip: Sinus Rhythm Rate: 83 Ectopy: None Physical Exam Const alert, oriented x3 and no apparent distress General Appearance: cooperative HEENT normocephalic, head/scalp atraumatic, moist oral mucous membranes and oropharynx normal Eyes PERRL and EOMs intact bilaterally Neck no lymphadenopathy and supple Lymph Lymphatic: no lymphadenopathy noted and no lymphedema noted Resp Resp Narrative: diminished breath sounds bibasally, no wheezes or crackles. Cardio regular rate, regular rhythm, S1 normal heart sound and S2 normal heart sound GI GI Narrative: diminished breath sounds bibasally, no wheezes or crackles. On 3L of oxygen. Extremity normal capillary refill and no clubbing, cyanosis or edema General Extremity: no tenderness to palpation of joints or extremities Skin General Skin Exam: no breakdown Neuro CN's II-XII intact bilaterally, no focal motor deficits, no sensory deficits noted and deep tendon reflexes 2+ bilaterally Motor Exam: strength 5/5 throughout and general weakness Psych thought process normal and cooperative Appearance: appropriate Assessment & Plan Assessment/Plan (1) Acute exacerbation of chronic obstructive pulmonary disease: (2) Non-cardiac chest pain: PLAN: Plan #Hypoxia due to acut COPD exacerbation Was saturating at 79% on room air. Feels much better. On 2 L of oxygen. Titrate oxygen to maintain saturation above 90%. Breathing treatments with good diabetes. COVID test and RSV were negative as well as flu. On IV Solu-Medrol. On PO azithromycin. #Chest pain Appears to be more musculoskeletal. Troponins not elevated. 2D echo done showed EF of 70% with hyperdynamic left ventricular systolic function and pulmonary artery systolic pressure 55 mmHg, indicating moderate pulmonary hypertension. #Hyponatremia: sodium is 125 today, and was 133 yesterday. hydrate gently with iVF and hold furosemide. #History of CAD s/p stents: On statin and beta-alberto. Was taken off of aspirin on account of history of nosebleeds. #Type 2 diabetes mellitus: On insulin sliding scale. Accu-Cheks ACHS. #GERD: On PPI #CKD stage IIIa: Stable. At baseline #Hypertension: On amlodipine and losartan #DVT prophylaxis: Lovenox Charges/Coding Visit Charges Inpatient E&M: 37232 Subs Hosp L2
[2023-12-27 12:15] LABS: Bedside Glucose 203 mg/dL (74-106)
[2023-12-27] MEDS: Colestipol 1 GM TABLET PO (16:57)
[2023-12-27 17:25] LABS: Bedside Glucose 152 mg/dL (74-106)
[2023-12-27] MEDS: Atorvastatin Calcium 40 MG Tablet PO (20:24)
[2023-12-27] MEDS: Glucerna Shake 120 ML LIQUID PO (20:28)
[2023-12-27 21:13] LABS: Bedside Glucose 184 mg/dL (74-106)
[2023-12-28] VITALS (10 sets, daily range): BP systolic 113–138; BP diastolic 50–65; PULSE 89–122; RESP 17–20; TEMP 36.3–36.8; O2SAT 95–99
[2023-12-28 04:48] LABS: Absolute Lymphocyte Count 0.66 X10^3/uL (0.83-4.51); Absolute Neutrophil Count 16.7 X10^3/uL (2.0-7.7); Basophil# 0.02 X10^3/uL; Basophil% 0.1 % (0-1); Hematocrit 30.4 % (37-47); Hemoglobin 9.7 g/dL (12.0-15.0); Lymphocyte # 0.66 X10^3/ul (0.83-4.51); Lymphocyte % 3.6 % (19-41); Mean Corp Hgb Conc 31.9 g/dL (32-36); Mean Corpuscular Hgb 26.3 pg (27.0-32.0); Mean Corpuscular Volume 82.4 fL (81-99); Mean Platelet Vol. 8.9 fl (6.2-12.0); Monocyte# 0.85 X10^3/uL; Monocyte% 4.6 % (0-10); NRBC Flagged by Analyzer 0 % (0-5); Neutrophil # 16.71 X10^3/uL (2.7-7.7); Neutrophil % 90.3 % (47-70); Platelet Count 391 K/mm3 (150-450); RBC Distribution Width CV 15.1 % (11.6-14.6); RBC Distribution Width SD 46.1 fl (35.1-43.9); Red Blood Count 3.69 M/mm3 (4.2-5.4); White Blood Count 18.5 K/mm3 (4.4-11.0)
[2023-12-28 04:59] LABS: Anion Gap 5 (5-15); BUN 21 mg/dL (7-18); Calcium,Total 8.4 mg/dL (8.5-10.1); Chloride 99 mmol/L (98-107); Creatinine, Serum 0.78 mg/dL (0.55-1.02); EST Glomerular Filtration Rate 74 mL/min (>60); Est Glom Filt Rate - Afr Amer 90 mL/min (>60); Estimated Creatinine Clearance 34.91 ml/min; Glucose 122 mg/dL (74-106); Potassium 4.9 mmol/L (3.5-5.1); Sodium Level 130 mmol/L (136-145)
[2023-12-28] MEDS: 0.9% Saline Lock 10 ML Syringe IV ×3 (05:56→21:21)
[2023-12-28] MEDS: Dicyclomine 10 MG Capsule PO ×3 (05:56→21:20)
[2023-12-28 06:47] LABS: Bedside Glucose 68 mg/dL (74-106)
[2023-12-28] MEDS: Ipratropium/Albuterol Sulfate 3 ML AMPUL.NEB INHALATION ×3 (06:57→20:13)
[2023-12-28 07:10] LABS: Bedside Glucose 136 mg/dL (74-106)
[2023-12-28] MEDS: guaiFENesin 1,200 MG Tablet 1200 MG PO ×2 (08:23→21:21)
[2023-12-28] MEDS: Isosorbide Mononitrate 30 MG Tablet PO (08:24)
[2023-12-28] MEDS: Aspirin 81 MG TAB.CHEW PO (08:24)
[2023-12-28] MEDS: Multivitamin (Healthy Eyes) Capsule 1 CAP PO ×2 (08:24→21:21)
[2023-12-28] MEDS: Multivitamins,Therapeutic Tablet 1 TABLET PO (08:24)
[2023-12-28] MEDS: Azithromycin 250 MG Tablet 500 MG PO (08:25)
[2023-12-28] MEDS: Metoprolol Tartrate 50 MG Tablet PO ×2 (08:25→21:20)
[2023-12-28] MEDS: Pantoprazole Sodium 40 MG Tablet PO (08:25)
[2023-12-28] MEDS: amLODIPine 5 MG Tablet PO (08:26)
[2023-12-28] MEDS: Creon 24,000 unit DR Capsule 3 CAP PO ×3 (08:26→17:00)
[2023-12-28] MEDS: Glimepiride 1 MG Tablet PO (08:26)
[2023-12-28] MEDS: Losartan Potassium 25 MG Tablet PO (08:26)
[2023-12-28] MEDS: Enoxaparin 30 MG/0.3 ML Syringe SC (08:27)
[2023-12-28] MEDS: Calcium Carbonate 500 MG Tablet PO (08:29)
--- NOTE | 2023-12-28 11:20 | PN_ITS ---
Subjective Subjective Patient seen and examined. She said she was improving but she felt she was still feeling short of breath. On 2L of oxygen. Objective Data Objective Data Vital Signs: Vital Signs Temp Pulse Resp BP Pulse Ox O2 Del Method O2 Flow Rate 97.7 F L 101 H 17 138/60 H 97 Nasal Cannula 2 12/28/23 08:20 12/28/23 08:25 12/28/23 08:20 12/28/23 08:20 12/28/23 08:51 12/28/23 08:33 12/28/23 08:51 Oxygen Flow Rate (L/min) 2 Oxygen Delivery Method Nasal Cannula Weight: 117 lb 8.102 oz Body Mass Index (BMI) 25.4 Intake & Output: Intake and Output for Last 24 Hours 12/26/23 12/27/23 12/28/23 23:59 23:59 23:59 Intake Total 1755 / 1755 2296.67 / 2446.67 728.33 / 728.33 Balance 1755 / 1755 2296.67 / 2446.67 728.33 / 728.33 Medical Nutrition Assessment Dietitian: Malnutrition Criteria Met Start: 12/26/23 10:42 Freq: Status: Active Protocol: Document 12/26/23 10:42 AG (Rec: 12/26/23 10:43 AG Tablet) Nutrition Malnutrition Evidence of Malnutrition Exists Yes Malnutrition (moderate): Acute Illness/Injury Evidenced By Suboptimal Energy Intake ( Moderate),Weight Loss ( Moderate) Clinical Problem Acute Disease or Injury Related Malnutrition Etiology moderate, acute malnutrition related to inadequate energy intake Signs/Symptoms as evidenced by unintentional wt loss of 5% x 1 month, estimated PO intake meeting < 75% of estimated energy needs > 1 week Status Active Problem Recommendation Dietitian Recommendations/Changes will liberalize diet to regular/sodium restricted, glucerna 120mL 4x/day w/ medpass given evidence of malnutrition Lab / Micro Data 12/28/23 04:25 12/28/23 04:25 Labs: Laboratory Results - last 24 hr 12/27/23 11:46: POC Glucose 203 H 12/27/23 16:55: POC Glucose 152 H 12/27/23 20:18: POC Glucose 184 H 12/28/23 04:25: WBC 18.5 H, RBC 3.69 L, Hgb 9.7 L, Hct 30.4 L, MCV 82.4, MCH 26.3 L, MCHC 31.9 L, RDW Std Deviation 46.1 H, RDW Coeff of Christina 15.1 H, Plt Count 391, MPV 8.9, Immature Gran % (Auto) 1.400 H, Neut % (Auto) 90.3 H, Lymph % (Auto) 3.6 L, [place] % (Auto) 4.6, Eos % (Auto) 0.0, Baso % (Auto) 0.1, Absolute Neuts (auto) 16.7 H, Absolute Lymphs (auto) 0.66 L, Nucleated RBC % 0, Sodium 130 L, Potassium 4.9, Chloride 99, Carbon Dioxide 26.0, Anion Gap 5, BUN 21 H, Creatinine 0.78, Estim Creat Clear Calc 34.91, Est GFR (MDRD) Af Amer 90, Est GFR (MDRD) Non-Af 74, BUN/Creatinine Ratio 27.0 H, Glucose 122 H, Calcium 8.4 L 12/28/23 06:27: POC Glucose 68 L 12/28/23 06:53: POC Glucose 136 H Micro: Microbiology 12/25/23 20:45 Sputum, Expectorated/Coughed Gram Stain - Final 12/25/23 20:45 Sputum, Expectorated/Coughed Respiratory Culture - Final 12/25/23 19:55 Mucosa - Nasopharyngeal Respiratory Panel (PCR) - Final 12/25/23 15:02 Mucosa - Nose SARS-CoV-2, Influenza & RSV (PCR) - Final Rhythm Strip Rhythm Strip: Sinus Rhythm Rate: 83 Ectopy: None Physical Exam Const alert, oriented x3 and no apparent distress General Appearance: cooperative HEENT normocephalic, head/scalp atraumatic, moist oral mucous membranes and oropharynx normal Eyes PERRL and EOMs intact bilaterally Neck no lymphadenopathy and supple Lymph Lymphatic: no lymphadenopathy noted and no lymphedema noted Resp Resp Narrative: diminished breath sounds bibasally, no wheezes or crackles. Cardio regular rate, regular rhythm, S1 normal heart sound and S2 normal heart sound GI GI Narrative: diminished breath sounds bibasally, no wheezes or crackles. On 3L of oxygen. Extremity normal capillary refill and no clubbing, cyanosis or edema General Extremity: no tenderness to palpation of joints or extremities Skin General Skin Exam: no breakdown Neuro CN's II-XII intact bilaterally, no focal motor deficits, no sensory deficits noted and deep tendon reflexes 2+ bilaterally Motor Exam: strength 5/5 throughout and general weakness Psych thought process normal and cooperative Appearance: appropriate Assessment & Plan Assessment/Plan (1) Acute exacerbation of chronic obstructive pulmonary disease: (2) Non-cardiac chest pain: PLAN: Plan #Hypoxia due to acut COPD exacerbation * Was saturating at 79% on room air. Feels much better. On 2 L of oxygen. Titrate oxygen to maintain saturation above 90%. Breathing treatments with good diabetes. * COVID test and RSV were negative as well as flu. * On IV Solu-Medrol. On PO azithromycin. * #Chest pain * Appears to be more musculoskeletal. Troponins not elevated. * 2D echo done showed EF of 70% with hyperdynamic left ventricular systolic function and pulmonary artery systolic pressure 55 mmHg, indicating moderate pulmonary hypertension. #Hyponatremia: sodium is up to 130 from 125. Continue gentle hydration with IVF. #History of CAD s/p stents: On statin and beta-alberto. Was taken off of aspirin on account of history of nosebleeds. #Type 2 diabetes mellitus: On insulin sliding scale. Accu-Cheks ACHS. #GERD: On PPI #CKD stage IIIa: Stable. At baseline #Hypertension: On amlodipine and losartan #DVT prophylaxis: Lovenox Charges/Coding Visit Charges Inpatient E&M: 49575 Subs Hosp L2
[2023-12-28 12:14] LABS: Bedside Glucose 146 mg/dL (74-106)
[2023-12-28] MEDS: Colestipol 1 GM TABLET PO (17:00)
[2023-12-28 17:19] LABS: Bedside Glucose 113 mg/dL (74-106)
[2023-12-28] MEDS: Insulin Lispro 100 UNIT/ML INSULN.PEN SC (21:20)
[2023-12-28] MEDS: Atorvastatin Calcium 40 MG Tablet PO (21:20)
[2023-12-28 22:06] LABS: Bedside Glucose 220 mg/dL (74-106)
[2023-12-29] VITALS (8 sets, daily range): BP systolic 139–168; BP diastolic 53–60; PULSE 85–118; RESP 18–20; TEMP 36.3–36.6; O2SAT 90–97
[2023-12-29] MEDS: Ipratropium/Albuterol Sulfate 3 ML AMPUL.NEB INHALATION ×3 (01:25→13:04)
[2023-12-29] MEDS: 0.9% Saline Lock 10 ML Syringe IV (05:58)
[2023-12-29 07:03] LABS: Bedside Glucose 118 mg/dL (74-106)
[2023-12-29 07:31] LABS: Absolute Lymphocyte Count 0.86 X10^3/uL (0.83-4.51); Basophil# 0.04 X10^3/uL; Basophil% 0.2 % (0-1); Hematocrit 33.3 % (37-47); Hemoglobin 10.5 g/dL (12.0-15.0); Lymphocyte # 0.86 X10^3/ul (0.83-4.51); Lymphocyte % 4.7 % (19-41); Mean Corp Hgb Conc 31.5 g/dL (32-36); Mean Corpuscular Hgb 26.5 pg (27.0-32.0); Mean Corpuscular Volume 84.1 fL (81-99); Mean Platelet Vol. 9.7 fl (6.2-12.0); Monocyte# 0.91 X10^3/uL; NRBC Flagged by Analyzer 0 % (0-5); Neutrophil # 16.02 X10^3/uL (2.7-7.7); Neutrophil % 88.1 % (47-70); Platelet Count 413 K/mm3 (150-450); RBC Distribution Width CV 15.3 % (11.6-14.6); RBC Distribution Width SD 47.2 fl (35.1-43.9); Red Blood Count 3.96 M/mm3 (4.2-5.4); White Blood Count 18.2 K/mm3 (4.4-11.0)
[2023-12-29 07:59] LABS: Anion Gap 5 (5-15); BUN 20 mg/dL (7-18); BUN/Creat Ratio 25.8 RATIO (10-20); Calcium,Total 9.2 mg/dL (8.5-10.1); Chloride 103 mmol/L (98-107); Creatinine, Serum 0.77 mg/dL (0.55-1.02); EST Glomerular Filtration Rate 75 mL/min (>60); Est Glom Filt Rate - Afr Amer 90 mL/min (>60); Estimated Creatinine Clearance 34.91 ml/min; Glucose 119 mg/dL (74-106); Potassium 4.4 mmol/L (3.5-5.1); Sodium Level 132 mmol/L (136-145)
[2023-12-29] MEDS: Aspirin 81 MG TAB.CHEW PO (08:05)
[2023-12-29] MEDS: Creon 24,000 unit DR Capsule 3 CAP PO ×2 (08:06→11:26)
[2023-12-29] MEDS: Multivitamins,Therapeutic Tablet 1 TABLET PO (08:06)
[2023-12-29] MEDS: Calcium Carbonate 500 MG Tablet PO (09:17)
[2023-12-29] MEDS: Losartan Potassium 25 MG Tablet PO (09:17)
[2023-12-29] MEDS: amLODIPine 5 MG Tablet PO (09:17)
[2023-12-29] MEDS: Azithromycin 250 MG Tablet 500 MG PO (09:17)
[2023-12-29] MEDS: Pantoprazole Sodium 40 MG Tablet PO (09:17)
[2023-12-29] MEDS: guaiFENesin 1,200 MG Tablet 1200 MG PO (09:17)
[2023-12-29] MEDS: Multivitamin (Healthy Eyes) Capsule 1 CAP PO (09:18)
[2023-12-29] MEDS: Metoprolol Tartrate 50 MG Tablet PO (09:18)
[2023-12-29] MEDS: Isosorbide Mononitrate 30 MG Tablet PO (09:18)
[2023-12-29] MEDS: Glimepiride 1 MG Tablet PO (09:18)
[2023-12-29] MEDS: Insulin Lispro 100 UNIT/ML INSULN.PEN SC (11:24)
--- NOTE | 2023-12-29 11:49 | DS.PCM_ITS ---
Providers Date of Admission: 12/25/23 Date of Discharge: 12/29/23 Primary Care Physician: Dr. Maria Antonia Salas MD Reason For Visit: COPD EXACERBATION, CHEST PAIN, HYPOXIA Diagnosis Discharge Diagnosis (1) Acute exacerbation of chronic obstructive pulmonary disease: Status: Chronic Code(s): J44.1 - Chronic obstructive pulmonary disease with (acute) exacerbation (2) Non-cardiac chest pain: Status: Acute Code(s): R07.89 - Other chest pain Plan #Hypoxia due to acut COPD exacerbation * Was saturating at 79% on room air. Feels much better. On 2 L of oxygen. Titrate oxygen to maintain saturation above 90%. Breathing treatments with good diabetes. * COVID test and RSV were negative as well as flu. * On IV Solu-Medrol. On PO azithromycin. * #Chest pain * Appears to be more musculoskeletal. Troponins not elevated. * 2D echo done showed EF of 70% with hyperdynamic left ventricular systolic function and pulmonary artery systolic pressure 55 mmHg, indicating moderate pulmonary hypertension. #Hyponatremia: sodium is up to 130 from 125. Continue gentle hydration with IVF. #History of CAD s/p stents: On statin and beta-alberto. Was taken off of aspirin on account of history of nosebleeds. #Type 2 diabetes mellitus: On insulin sliding scale. Accu-Cheks ACHS. #GERD: On PPI #CKD stage IIIa: Stable. At baseline #Hypertension: On amlodipine and losartan #DVT prophylaxis: Lovenox Medications at Discharge Home Medications lansoprazole 30 mg capsule,delayed release (Prevacid) 30 mg PO DAILY ACID REFLUX 10/27/14 multivitamin with folic acid 400 mcg tablet 1 tab PO DAILY MULTIVITAMIN 10/27/14 nitroglycerin 0.4 mg sublingual tablet 0.4 mg sublingual Q5M PRN Chest Pain 10/27/14 vitamins A,C,G-vkzk-itsyar 4,296 mcg-226 mg-90 mg capsule 1 ea PO BID SUPPLEMENT 10/27/14 calcium carbonate 600 mg calcium (1,500 mg) tablet 600 mg PO DAILY SUPPLEMENT 02/04/17 albuterol sulfate 90 mcg/actuation aerosol inhaler (Ventolin HFA) 2 puff inhalation Q6H PRN Wheezing 04/07/19 tiotropium bromide 2.5 mcg/actuation mist for inhalation (Spiriva Respimat) 2 puff inhalation DAILY breathing 04/07/19 metoprolol tartrate 50 mg tablet 50 mg PO BID blood pressure 04/08/19 atorvastatin 40 mg tablet 40 mg PO QHS cholesterol lowering 10/12/20 furosemide 20 mg tablet 20 mg PO DAILY water pill 10/12/20 glimepiride 1 mg tablet 1 mg PO DAILY blood sugar 10/12/20 isosorbide mononitrate 30 mg tablet,extended release 24 hr 30 mg PO DAILY heart 10/12/20 mometasone-formoterol HFA 200 mcg-5 mcg/actuation aerosol inhaler (Dulera) 1 puff IH BID breathing 10/12/20 losartan 25 mg tablet 25 mg PO DAILY 01/25/22 colestipol 1 gram tablet 1 g PO ONCE #30 tabs 12/19/22 frpszc-qmfpscau-affegnk 24,000-76,000-120,000 unit capsule,delayed rel (Creon) See Rx Instructions PO .COMPLEX #320 caps 09/24/23 dicyclomine 10 mg capsule 10 mg PO TID #90 caps 11/28/23 amlodipine 5 mg tablet 5 mg PO DAILY 12/25/23 fluticasone propionate 50 mcg/actuation nasal spray,suspension (24 Hour Allergy Relief) 2 spray intranasal DAILY PRN ALLERGIES 12/25/23 prednisone 20 mg tablet 40 mg (2 x 20 mg) PO DAILY #10 tabs 12/29/23 Hospital Course Summary of Care Provided Minutes Spent on Discharge: 55 Hospital Course: Patient is an 88-year-old female with a past medical history as outlined including COPD was admitted to the ED on 12/25/2023 with a complaint of shortness of breath, wheezing and chills which have been going on for about a week. She also had a nonproductive cough and pleuritic chest pain. She was hypoxic on room air at 87% and subsequently went down to 79% also on room air. Chest x-ray showed no acute cardiopulmonary findings. She was admitted and managed for acute exacerbation of COPD with hypoxia. COVID and flu as well as RSV screen was negative. She was placed on IV Solu-Medrol and breathing treatments with bronchodilators. She was also placed on azithromycin. She did also complain of some chest pain when she came in which was thought to be likely musculoskeletal. 2D echo showed EF of 70% with hyperdynamic left ventricular systolic function and pulmonary artery systolic pressure 55 mmHg indicating moderate pulmonary hypertension. She also had hyponatremia which resolved with hydration of IV fluids. Patient's shortness of breath improved and she felt much better. She had walking pulse ox on 12/29/2023 which showed that she did not require any oxygen. She was discharged on p.o. prednisone 40 mg daily for 5 days. She was discharged on 12/29/2023. She is follow-up with her primary care doctor within 1 to 2 weeks. Patient seen and examined prior to discharge. She had no active complaints. Review of systems otherwise negative. Labs and vitals reviewed. Home medication reviewed and reconciled. Physical Exam Const alert, oriented x3 and no apparent distress General Appearance: cooperative HEENT normocephalic, head/scalp atraumatic, hearing grossly normal bilaterally, moist oral mucous membranes and oropharynx normal Eyes PERRL and EOMs intact bilaterally Neck no lymphadenopathy and supple Lymph Lymphatic: no lymphadenopathy noted and no lymphedema noted Resp Resp Narrative: diminished breath sounds bibasally, no wheezes or crackles. Cardio regular rate, regular rhythm, S1 normal heart sound and S2 normal heart sound GI GI Narrative: diminished breath sounds bibasally, no wheezes or crackles. On 3L of oxygen. Extremity normal capillary refill and no clubbing, cyanosis or edema General Extremity: no tenderness to palpation of joints or extremities Skin General Skin Exam: no breakdown Neuro oriented x3, CN's II-XII intact bilaterally, moves all extremities, no focal motor deficits, no sensory deficits noted and deep tendon reflexes 2+ bilaterally Motor Exam: strength 5/5 throughout and general weakness Psych thought process normal and cooperative Appearance: appropriate Medical Records Data Medical Nutrition Assessment Dietitian: Malnutrition Criteria Met Start: 12/26/23 10:42 Freq: Status: Active Protocol: Document 12/26/23 10:42 AG (Rec: 12/26/23 10:43 AG Tablet) Nutrition Malnutrition Evidence of Malnutrition Exists Yes Malnutrition (moderate): Acute Illness/Injury Evidenced By Suboptimal Energy Intake ( Moderate),Weight Loss ( Moderate) Clinical Problem Acute Disease or Injury Related Malnutrition Etiology moderate, acute malnutrition related to inadequate energy intake Signs/Symptoms as evidenced by unintentional wt loss of 5% x 1 month, estimated PO intake meeting < 75% of estimated energy needs > 1 week Status Active Problem Recommendation Dietitian Recommendations/Changes will liberalize diet to regular/sodium restricted, glucerna 120mL 4x/day w/ medpass given evidence of malnutrition Weight / BMI Weight Weight: 117 lb 8.102 oz Body Mass Index (BMI) 25.4 ABG / Lab / Microbiology Data 12/29/23 06:20 12/29/23 06:20 Laboratory: Laboratory Results - last 24 hr 12/28/23 11:34: POC Glucose 146 H 12/28/23 16:58: POC Glucose 113 H 12/28/23 21:19: POC Glucose 220 H 12/29/23 06:18: POC Glucose 118 H 12/29/23 06:20: WBC 18.2 H, RBC 3.96 L, Hgb 10.5 L, Hct 33.3 L, MCV 84.1, MCH 26.5 L, MCHC 31.5 L, RDW Std Deviation 47.2 H, RDW Coeff of Christina 15.3 H, Plt Count 413, MPV 9.7, Immature Gran % (Auto) 2.000 H, Neut % (Auto) 88.1 H, Lymph % (Auto) 4.7 L, Hutchinson % (Auto) 5.0, Eos % (Auto) 0.0, Baso % (Auto) 0.2, Absolute Neuts (auto) 16.0 H, Absolute Lymphs (auto) 0.86, Nucleated RBC % 0, Sodium 132 L, Potassium 4.4, Chloride 103, Carbon Dioxide 24.0, Anion Gap 5, BUN 20 H, Creatinine 0.77, Estim Creat Clear Calc 34.91, Est GFR (MDRD) Af Amer 90, Est GFR (MDRD) Non-Af 75, BUN/Creatinine Ratio 25.8 H, Glucose 119 H, Calcium 9.2 Microbiology: Microbiology 12/25/23 20:45 Sputum, Expectorated/Coughed Gram Stain - Final 12/25/23 20:45 Sputum, Expectorated/Coughed Respiratory Culture - Final 12/25/23 19:55 Mucosa - Nasopharyngeal Respiratory Panel (PCR) - Final 12/25/23 15:02 Mucosa - Nose SARS-CoV-2, Influenza & RSV (PCR) - Final D/C Instructions Discharge Diet: Low fat / Low cholesterol Weight Bearing Status: Weight bearing as tolerated Call your doctor if you observe: Fever of 101 or Higher, Shortness of breath, Dizziness, Swelling in the ankles, Chest pain and Increased palpitations (irregular heartbeat) Meaningful Use Info Meaningful Use Diagnoses (Choose all that apply): None applicable Discharge Plan Admission Admit Date/Time: 12/25/23 18:09 Primary Reason for Your Visit: acute COPD exacebertion Attending Provider: Gracia Palacios Primary Care Provider: Maria Antonia Salas Consulting Providers: Yvette Taveras Instructions Patient Instructions: Discharge Instructions: COPD, COPD Controlled Breathing Dc Discharge Orders/Prescriptions Prescriptions: New prednisone 20 mg tablet 40 mg PO DAILY Qty: 10 0RF Continued Spiriva Respimat 2.5 mcg/actuation mist 2 puff INHALATION DAILY albuterol sulfate [Ventolin HFA] 90 mcg/actuation HFA aerosol inhaler 2 puff INHALATION Q6H PRN (Reason: Wheezing) metoprolol tartrate 50 mg tablet 50 mg PO BID losartan 25 mg tablet 25 mg PO DAILY Creon 24,000-76,000 -120,000 unit capsule,delayed release(DR/EC) See Rx Instructions PO .COMPLEX Qty: 320 5RF Rx Instructions: Take 2-3 capsules with meals and 1-2 with snacks lansoprazole [Prevacid] 30 MG capsule 30 mg PO DAILY nitroglycerin 0.4 MG tablet 0.4 mg sublingual Q5M PRN (Reason: Chest Pain) vitamins A,C,W-mfrb-fvxzqj 1 EACH capsule 1 ea PO BID multivitamin with folic acid 1 TABLET tablet 1 tab PO DAILY calcium carbonate 600 MG tablet 600 mg PO DAILY atorvastatin 40 MG tablet 40 mg PO QHS glimepiride 1 MG tablet 1 mg PO DAILY Dulera 13 GM HFA aerosol inhaler 1 puff IH BID isosorbide mononitrate 30 MG tablet extended release 24 hr 30 mg PO DAILY furosemide 20 MG tablet 20 mg PO DAILY amlodipine 5 mg tablet 5 mg PO DAILY fluticasone propionate [24 Hour Allergy Relief] 50 mcg/actuation spray,suspension 2 spray intranasal DAILY PRN (Reason: ALLERGIES) Rx Instructions: administer into each nostril colestipol 1 gram tablet 1 g PO ONCE Qty: 30 2RF Rx Instructions: don't take other medications w/in one hour before or 4 hours after colestipol dicyclomine 10 mg capsule 10 mg PO TID Qty: 90 1RF Referrals / Follow Up: Maria Antonia Salas MD [Primary Care Provider] - 12/31/23 10:20 am Disposition Disposition (needs filled in before D/C Order can be placed): Home, Self Care Charges/Coding Visit Charges Inpatient E&M: 35820 Disch Hosp >30min
[2023-12-29 11:57] LABS: Bedside Glucose 240 mg/dL (74-106)
--- NOTE | 2023-12-29 12:07 | CASEMGMT ---
Patient has order for discharge today. Patient does not qualify for home oxygen. Patient is setup with [facility] with start of care tomorrow. ARAVIND ROBBINS in to discuss needs at discharge. Patient denies additional needs at discharge. Patient had no further questions or concerns. ARAVIND ROBBINS updated [facility] regarding discharge today.
--- NOTE | 2023-12-29 13:47 | PHA.DC.MC.R ---
Pharmacy [facility] has performed discharge medication reconciliation and counseling for this patient. 1. PREDNISONE 40MG PO DAILY X 5 DAYS The patient's discharge medication list was reviewed for discrepancies and discrepancies were resolved. The patient was counseled on the following discharge medications and changes in medications for homegoing were reviewed. The Reason for Use, instructions for use, and potential side effects were reviewed for all new medications. The patient's questions regarding all of their medications were answered. The patient was able to verbally demonstrate an understanding of their discharge medications. Patient counseled by pharmacy technician assistantOneal. Medications at Discharge Home Medications lansoprazole 30 mg capsule,delayed release (Prevacid) 30 mg PO DAILY ACID REFLUX 10/27/14 multivitamin with folic acid 400 mcg tablet 1 tab PO DAILY MULTIVITAMIN 10/27/14 nitroglycerin 0.4 mg sublingual tablet 0.4 mg sublingual Q5M PRN Chest Pain 10/27/14 vitamins A,C,I-nkay-vuuuqp 4,296 mcg-226 mg-90 mg capsule 1 ea PO BID SUPPLEMENT 10/27/14 calcium carbonate 600 mg calcium (1,500 mg) tablet 600 mg PO DAILY SUPPLEMENT 02/04/17 albuterol sulfate 90 mcg/actuation aerosol inhaler (Ventolin HFA) 2 puff inhalation Q6H PRN Wheezing 04/07/19 tiotropium bromide 2.5 mcg/actuation mist for inhalation (Spiriva Respimat) 2 puff inhalation DAILY breathing 04/07/19 metoprolol tartrate 50 mg tablet 50 mg PO BID blood pressure 04/08/19 atorvastatin 40 mg tablet 40 mg PO QHS cholesterol lowering 10/12/20 furosemide 20 mg tablet 20 mg PO DAILY water pill 10/12/20 glimepiride 1 mg tablet 1 mg PO DAILY blood sugar 10/12/20 isosorbide mononitrate 30 mg tablet,extended release 24 hr 30 mg PO DAILY heart 10/12/20 mometasone-formoterol HFA 200 mcg-5 mcg/actuation aerosol inhaler (Dulera) 1 puff IH BID breathing 10/12/20 losartan 25 mg tablet 25 mg PO DAILY 01/25/22 colestipol 1 gram tablet 1 g PO ONCE #30 tabs 12/19/22 [id number]-okmaximl-wgemzjb 24,000-76,000-120,000 unit capsule,delayed rel (Creon) See Rx Instructions PO .COMPLEX #320 caps 09/24/23 dicyclomine 10 mg capsule 10 mg PO TID #90 caps 11/28/23 amlodipine 5 mg tablet 5 mg PO DAILY 12/25/23 fluticasone propionate 50 mcg/actuation nasal spray,suspension (24 Hour Allergy Relief) 2 spray intranasal DAILY PRN ALLERGIES 12/25/23 prednisone 20 mg tablet 40 mg (2 x 20 mg) PO DAILY #10 tabs 12/29/23
== END 2023-12-29 14:09 | disposition home health service (06) | DRG 191 ==
LOC: ED 17:42 → PCU 18:11
PROVIDERS: Admitting Provider Internal Medicine; Emergency Provider Emergency Medicine; PCP Internal Medicine; Visit Provider Student in an Organized Health Care Education/Training Program
DX: J44.1 Chronic obstructive pulmonary disease with (acute) exacerbation (principal); E44.0 Moderate protein-calorie malnutrition; I13.0 Hypertensive heart and chronic kidney disease with heart failure and stage 1 through stage 4 chronic kidney disease, or unspecified chronic kidney disease; E87.1 Hypo-osmolality and hyponatremia; I50.32 Chronic diastolic (congestive) heart failure; I27.23 Pulmonary hypertension due to lung diseases and hypoxia; D63.1 Anemia in chronic kidney disease; E11.22 Type 2 diabetes mellitus with diabetic chronic kidney disease; E11.51 Type 2 diabetes mellitus with diabetic peripheral angiopathy without gangrene; N18.31 Chronic kidney disease, stage 3a; I25.10 Atherosclerotic heart disease of native coronary artery without angina pectoris; G47.33 Obstructive sleep apnea (adult) (pediatric); J98.01 Acute bronchospasm; K21.9 Gastro-esophageal reflux disease without esophagitis; E78.2 Mixed hyperlipidemia; I25.5 Ischemic cardiomyopathy; R07.89 Other chest pain; R09.02 Hypoxemia; Z95.5 Presence of coronary angioplasty implant and graft; Z68.25 Body mass index [BMI] 25.0-25.9, adult; Z79.84 Long term (current) use of oral hypoglycemic drugs; Z79.51 Long term (current) use of inhaled steroids; Z79.899 Other long term (current) drug therapy; Z87.891 Personal history of nicotine dependence
CPT/HCPCS: 36415; 71046; 80048; 80053; 82962; 83605; 83690; 84439; 84443; 84484; 85025; 87070; 87205; 87631; 87633; 93005; 93308; 94640; 94668; 97110; 97162; 97166; 97530; 97535; 97802; 99252; 99285; J7030; A4216; G0463

== ENCOUNTER → 2024-07-01 | Outpatient (CLI) | payer MEDICARE, SELFPAY ==
--- NOTE | 2024-07-01 13:39 | CDU_ITS ---
Reason For Study: CAROTID STENOSIS Rt. Velocities/BP Lt. Velocities/BP Prox CCA 72.4/5.3 cm/sec. Prox CCA 60.2/9.7 cm/sec. Mid CCA 64.8/9.1 cm/sec. Mid CCA 75.2/12.8 cm/sec. Dist CCA 71.4/7.2 cm/sec. Dist CCA 76.1/13.8 cm/sec. Prox ICA 64.4/9.5 cm/sec. Prox ICA 179.1/18.9 cm/sec. Mid ICA 75.4/12.7 cm/sec. Mid ICA 221.9/22.3 cm/sec. Dist ICA 85.3/12.7 cm/sec. Dist ICA 96.6/18.1 cm/sec. Rt. ICA/CCA = 85.3/64.8=1.3. Lt. ICA/CCA = 221.9/75.2=3.0. Prox ECA 286.0/11.4 cm/sec. Prox ECA 284.8/0.0 cm/sec. Rt. Vert. 45.3/7.5 cm/sec. Lt. Vert. 72.4/11.9 cm/sec. Right Extracranial There is heterogeneous, irregular atherosclerotic plaque noted in the right common carotid artery. There is heterogeneous, irregular atherosclerotic plaque noted in the right internal carotid artery. There is heterogeneous, irregular atherosclerotic plaque noted in the right external carotid artery. Antegrade flow is noted in the right vertebral artery. Left Extracranial There is heterogeneous, irregular atherosclerotic plaque noted in the left common carotid artery. There is heterogeneous, irregular atherosclerotic plaque noted in the left internal carotid artery. There is heterogeneous, irregular atherosclerotic plaque noted in the left external carotid artery. Antegrade flow is noted in the left vertebral artery. Procedure Carotid Duplex 35220. This is a Carotid Duplex examination using B-mode, color flow and specral Doppler. The study was technically difficult. Exam performed in department. VL/Carotid Duplex Ultrasound Interpretation Summary Mild (<50%) stenosis right extracranial internal carotid. Moderate (50-69%) sonia nosis left extracranial internal carotid. Patent and antegrade vertebrals bilaterally. Ordering Physician: Jose Luis Marie Referring Physician: Maria Antonia Salas Performed By: Katherin Moser, ANDREA, RVT
== END | disposition home or self-care (01) ==
LOC: CVS 13:38
PROVIDERS: PCP Internal Medicine; Referring Provider Surgery Vascular Surgery; Visit Provider Surgery Vascular Surgery
DX: I65.23 Occlusion and stenosis of bilateral carotid arteries (principal)
CPT/HCPCS: 93880

== ENCOUNTER 2024-10-12 10:30 | Inpatient (IN) | payer MEDICARE, SELFPAY ==
[2024-10-12] VITALS (7 sets, daily range): BP systolic 134–146; BP diastolic 49–79; PULSE 73–78; RESP 18–26; TEMP 36.6–36.9; O2SAT 87–99; BMI 19.3
--- NOTE | 2024-10-12 10:45 | EKG12_ITS ---
Test Reason : SOB Blood Pressure : */* mmHG Vent. Rate : 69 BPM Atrial Rate : 69 BPM P-R Int : 136 ms QRS Dur : 68 ms QT Int : 392 ms P-R-T Axes : 45 13 28 degrees QTcB Int : 420 ms Normal sinus rhythm Normal ECG Confirmed by DIANNE MOSQUEDA, JENN ([id number]), avid editor LISA HENRY ([id number]) on 10/13/2024 12:40:42 PM Referred By: Confirmed By: JENN DEAN MD
--- NOTE | 2024-10-12 10:51 | EDS_ITS ---
HPI History of Present Illness Chief Complaint: Cough Narrative Narrative: Patient is a 88-year-old female past medical history of diabetes, EKATERINA has as needed oxygen at home but does not wear this according to family at bedside, CHF, CKD stage III, peripheral vascular disease, atrial fibrillation, CAD, COPD who presented to the emerged part with a chief complaint of cough and shortness of breath. According to the patient's family at bedside she has had the symptoms for over a week that has been progressively worsening prompting them to come here for further evaluation management. They note that last night her oxygen was noted to be 86% on room air. They state they called an urgent care and they advised them just to come to the emergency department for further evaluation management. Family member bedside did note that they did have increased lower extremity swelling recently as well. [facility] Medical History Wears glasses Wears dentures Diabetes Gastric reflux Chronic pancreatitis Sleep apnea Former smoker Cardiology follow-up encounter History of edema History of atrial fibrillation History of CHF (congestive heart failure) LUQ abdominal pain Leukocytosis Abdominal pain Anemia of chronic renal failure, stage 3 (moderate) Lower leg edema Osteopenia Vitamin D deficiency Esophageal reflux disease Pulmonary hypertension Carotid artery disease PVD (peripheral vascular disease) Ischemic cardiomyopathy PAD (peripheral artery disease) CKD (chronic kidney disease) Type 2 diabetes mellitus Macular degeneration EKATERINA (obstructive sleep apnea) Presence of stent in coronary artery Essential hypertension Atherosclerotic heart disease of [place] coronary artery without angina pectoris Mixed hyperlipidemia Pneumonia Hypoxia Syncope Dyslipidemia CAD (coronary artery disease) COPD (chronic obstructive pulmonary disease) Home Medications ?Medication ?Instructions ?Recorded ?Last Taken ?Type lansoprazole 30 mg capsule,delayed 30 mg PO DAILY ACID REFLUX 10/27/14 12/25/23 History release (Prevacid) multivitamin with folic acid 400 1 tab PO DAILY MULTIVITAMIN 10/27/14 12/25/23 H istory mcg tablet nitroglycerin 0.4 mg sublingual 0.4 mg sublingual Q5M PRN Chest 10/27/14 12/25/23 History tablet Pain vitamins A,C,V-erzq-cjsiti 4,296 1 ea PO BID SUPPLEMENT 10/27/14 12/25/23 History mcg-226 mg-90 mg capsule calcium carbonate 600 mg PO DAILY SUPPLEMENT 02/04/17 12/25/23 History albuterol sulfate 90 mcg/actuation 2 puff inhalation Q6H PRN Wheezing 04/07/19 0 12/25/23 History aerosol inhaler (Ventolin HFA) tiotropium bromide 2.5 2 puff inhalation DAILY breathing 04/07/19 12/25/23 History mcg/actuation mist for inhalation (Spiriva Respimat) metoprolol tartrate 50 mg tablet 50 mg PO BID blood pressure 04/08/19 12/25/23 History atorvastatin 40 mg tablet 40 mg PO QHS cholesterol lowering 10/12/20 12/24/23 History furosemide 20 mg tablet 20 mg PO DAILY water pill 10/12/20 12/25/23 History glimepiride 1 mg tablet 1 mg PO DAILY blood sugar 10/12/20 12/25/23 History isosorbide mononitrate 30 mg 30 mg PO DAILY heart 10/12/20 12/25/23 History tablet,extended release 24 hr mometasone-formoterol HFA 200 1 puff IH BID breathing 10/12/20 12/25/23 History mcg-5 mcg/actuation aerosol inhaler (Dulera) losartan 25 mg tablet 25 mg PO DAILY 01/25/22 12/25/23 History amlodipine 5 mg tablet 5 mg PO DAILY 12/25/23 12/25/23 History fluticasone propionate 50 2 spray intranasal DAILY PRN 12/25/23 12/25/23 History mcg/actuation nasal ALLERGIES spray,suspension (24 Hour Allergy Relief) [id number] See Rx Instructions PO .COMPLEX 03/22/24 Unknown Rx 24,000-76,000-120,000 unit #320 caps capsule,delayed rel (Creon) memantine 10 mg tablet 10 mg PO BID 03/24/24 Unknown History dicyclomine 10 mg capsule 10 mg PO TID #90 caps 08/03/24 Unknown Rx mirtazapine 7.5 mg tablet 15 mg PO QHS 09/16/24 Unknown History Allergy/AdvReac Type Severity Reaction Status Date / Time acetaminophen (From Tylenol) Allergy Hives Verified 10/12/24 10:31 iodine Allergy Hives Verified 10/12/24 10:31 nabumetone Allergy Unknown Verified 10/12/24 10:31 pregabalin (From Lyrica) Allergy Unknown Verified 10/12/24 10:31 Family History Father Heart disease Mother Cancer Brother Heart disease Surgical History History of hysterectomy History of cholecystectomy Presence of coronary angioplasty implant and graft H/O heart artery stent Social History household members: family Smoking Status: Former smoker alcohol intake: never substance use type: does not use caffeine: Yes Type: coffee Number of servings: 2 ROS ROS ED ROS Narrative Constitutional: Denies any fevers, chills, headaches, lightness, dizziness Eyes: Denies change in vision double vision blurry vision Cardiovascular: Denies chest pain or palpitations Respiratory: Complains of cough and shortness of breath as noted above Abdomen: Denies abdominal pain nausea vomit diarrhea : Denies any painful urination, hematuria and polyuria Neurological: Denies any numbness, weakness, tingling Musculoskeletal: Denies back pain Skin: Denies any rashes or lesions EXAM Physical Exam Narrative Exam Narrative: General: Patient lying in bed rest comfortably did not appear to be in acute distress Head: Atraumatic, normocephalic Eyes: PERRL body, EOMI bladder, no conjunctival injection noted Neck: Soft, supple, trachea midline Cardiovascular: Regular in rhythm no murmurs gallops rubs noted Respiratory: Clear to auscultation bilaterally Abdomen: Soft, nondistended, no tenderness palpation, bowel sounds present x 4 Extremities: +4/5 strength noted in the bilateral upper and lower extremities, radial pulses +2/4 in the bilateral upper extremities Neurological: Patient was following commands knew that she was at [facility] the year is 2023 Skin: Warm, dry, intact Const Vital Signs: 10/12/24 10:30 10/12/24 10:30 10/12/24 11:26 Temperature 98.1 F 98.1 F Temperature Source Oral Oral Pulse Rate 73 74 Respiratory Rate 20 H 26 H Respiratory Effort Respiratory Depth Respiratory Pattern Blood Pressure 141/64 H 134/51 H Blood Pressure Mean 89 78 Pulse Ox 87 90 94 Oxygen Delivery Method Room Air Room Air Nasal Cannula Oxygen Flow Rate (L/min) 3 10/12/24 11:26 10/12/24 11:26 Temperature Temperature Source Pulse Rate Respiratory Rate Respiratory Effort Short of Breath Respiratory Depth Shallow Respiratory Pattern Tachypnea Blood Pressure Blood Pressure Mean Pulse Ox 94 Oxygen Delivery Method Nasal Cannula Nasal Cannula Oxygen Flow Rate (L/min) 3 3 MDM MDM MDM Narrative Medical decision making narrative: Patient is a 80-year-old female who presented to the emerged part with a chief complaint of cough and shortness of breath for the past week. Patient will have a workup performed here on the differential diagnose clues Melamin to pneumonia, upper respiratory infection second viral etiology, COPD exacerbation, CHF exacerbation. Once workup is obtained reviewed she will be reevaluated. Patient CBC was reviewed and was largely unremarkable no evidence leukocytosis white blood count normal at 10.7, hemoglobin was 12.6, platelet count was noted be normal at 304. Patient's sodium normal at 136, potassium was noted to be normal at 3.9, creatinine normal at 0.99. Patient's troponin normal at 9. Patient's EKG reviewed and independently interpreted by myself which showed sinus rhythm with a rate of 69 bpm. Patient's proBNP was noted to be 469, urinalysis is pending. Patient's chest x-ray was reviewed by myself and by radiology which showed small pleural effusions with increased basilar markings favoring atelectasis patchy left midlung opacity could be infectious patient does have cough associated with this we will treat her for pneumonia with Rocephin and azithromycin. Patient will given 40 mg IV Lasix for CHF. At this point time patient's case will be discussed with hospitalist for admission for mixed picture of pneumonia and congestive heart failure. Patient is agreeable with this plan. Discussed case with hospitalist Dr. Petersen who will accept patient for admission. All question concerns answered bedside. Lab Data Labs: Laboratory Results - last 24 hr 10/12/24 10/12/24 10/12/24 11:15 11:50 11:59 WBC 10.7 RBC 4.75 Hgb 12.6 Hct 39.2 MCV 82.5 MCH 26.5 L MCHC 32.1 RDW Std Deviation 44.6 H RDW Coeff of Christina 14.7 H Plt Count 304 MPV 9.6 Immature Gran % (Auto) 0.800 Neut % (Auto) 68.7 Lymph % (Auto) 15.6 L [place] % (Auto) 11.6 H Eos % (Auto) 2.6 Baso % (Auto) 0.7 Absolute Neuts (auto) 7.4 Absolute Lymphs (auto) 1.67 Nucleated RBC % 0 Sodium 136 Potassium 3.9 Chloride 101 Carbon Dioxide 30.0 Anion Gap 5 BUN 12 Creatinine 0.99 Est GFR (MDRD) Af Amer 68 Est GFR (MDRD) Non-Af 56 L BUN/Creatinine Ratio 12.2 Glucose 65 L Calcium 9.4 Troponin I High Sens 9 B-Natriuretic Peptide 469.8 H Urine Color Straw Urine Clarity Clear Urine pH 6.5 Ur Specific [place] 1.005 Urine Protein Negative Urine Glucose (UA) Normal Urine Ketones Negative Urine Occult Blood Negative Urine Nitrite Negative Urine Bilirubin Negative Urine Urobilinogen Normal Ur Leukocyte Esterase Negative Urine RBC 0 SEEN Urine WBC 0 SEEN Ur Squamous Epith Cells 0 SEEN Urine Bacteria 0 SEEN Urine Mucus 0 SEEN POC Glucose 88 Radiography Diagnostic Testing: Clinical Impression(s) from Imaging Studies Chest X-Ray 10/12/24 11:18 IMPRESSION: Small pleural effusions with increased basilar markings favoring atelectasis. Patchy left midlung opacity could be infectious or inflammatory. Electronically Signed: Rodo Parker MD at 11:35 EST Reading Location ID and State: [address] [place] [address] Tel , Service support , Discharge Plan Triage Chief Complaint: Cough ED Provider: Johnny Etienne Dx/Rx/DC Orders Clinical Impression: Acute hypoxic on chronic hypercapnic respiratory failure, CHF (congestive heart failure), Pneumonia Prescriptions: No Action Spiriva Respimat 2.5 mcg/actuation mist 2 puff INHALATION DAILY albuterol sulfate [Ventolin HFA] 90 mcg/actuation HFA aerosol inhaler 2 puff INHALATION Q6H PRN (Reason: Wheezing) metoprolol tartrate 50 mg tablet 50 mg PO BID losartan 25 mg tablet 25 mg PO DAILY memantine 10 mg tablet 10 mg PO BID mirtazapine 7.5 mg tablet 15 mg PO QHS lansoprazole [Prevacid] 30 MG capsule 30 mg PO DAILY nitroglycerin 0.4 MG tablet 0.4 mg sublingual Q5M PRN (Reason: Chest Pain) vitamins A,C,Y-oyaz-ujcvja 1 EACH capsule 1 ea PO BID multivitamin with folic acid 1 TABLET tablet 1 tab PO DAILY calcium carbonate 600 MG tablet 600 mg PO DAILY atorvastatin 40 MG tablet 40 mg PO QHS glimepiride 1 MG tablet 1 mg PO DAILY Dulera 13 GM HFA aerosol inhaler 1 puff IH BID isosorbide mononitrate 30 MG tablet extended release 24 hr 30 mg PO DAILY furosemide 20 MG tablet 20 mg PO DAILY amlodipine 5 mg tablet 5 mg PO DAILY fluticasone propionate [24 Hour Allergy Relief] 50 mcg/actuation spray,suspension 2 spray intranasal DAILY PRN (Reason: ALLERGIES) Rx Instructions: administer into each nostril Creon 24,000-76,000 -120,000 unit capsule,delayed release(DR/EC) See Rx Instructions PO .COMPLEX Qty: 320 5RF Rx Instructions: Take 2-3 capsules with meals and 1-2 with snacks dicyclomine 10 mg capsule 10 mg PO TID Qty: 90 5RF Primary Care Provider: Maria Antonia Salas Referrals: Maria Antonia Salas MD [Primary Care Provider] - Print Language: Spanish Disposition Disposition: Acute Care Hospital [facility]
[2024-10-12] MEDS: 0.9% Normal Saline (1000mL) 1,000 ML 999 ML IV (11:14)
--- NOTE | 2024-10-12 11:18 | RAD_ITS ---
INDICATION: cough, sob EXAMINATION/TECHNIQUE: X-RAY - XR Chest 2 Views COMPARISON: Prior study dated: 12/25/2023 FINDINGS: LINES/DEVICES: Cardiac leads overlie the chest. LUNGS: The lungs are well expanded. Small bilateral pleural effusions. Prominent markings are seen in the lower lungs bilaterally. Mild patchy left midlung opacity. No pneumothorax. MEDIASTINUM AND CARDIOVASCULAR STRUCTURES: Cardiac silhouette is unchanged with a calcified and tortuous aorta. Central airways and mediastinal contour are unremarkable. BONES AND SOFT TISSUES: No acute abnormality. RAD/Chest PA and Lateral IMPRESSION: Small pleural effusions with increased basilar markings favoring atelectasis. Patchy left midlung opacity could be infectious or inflammatory. Electronically Signed: Rodo Parker MD at 11:35 EST ,
[2024-10-12 11:21] LABS: Absolute Lymphocyte Count 1.67 X10^3/uL (0.83-4.51); Absolute Neutrophil Count 7.4 X10^3/uL (2.0-7.7); Basophil# 0.07 X10^3/uL; Basophil% 0.7 % (0-1); Eosinophil# 0.28 X10^3/uL; Eosinophils% 2.6 % (0-5); Hematocrit 39.2 % (37-47); Hemoglobin 12.6 g/dL (12.0-15.0); Lymphocyte # 1.67 X10^3/ul (0.83-4.51); Lymphocyte % 15.6 % (19-41); Mean Corp Hgb Conc 32.1 g/dL (32-36); Mean Corpuscular Hgb 26.5 pg (27.0-32.0); Mean Corpuscular Volume 82.5 fL (81-99); Mean Platelet Vol. 9.6 fl (6.2-12.0); Monocyte# 1.24 X10^3/uL; Monocyte% 11.6 % (0-10); NRBC Flagged by Analyzer 0 % (0-5); Neutrophil # 7.35 X10^3/uL (2.7-7.7); Neutrophil % 68.7 % (47-70); Platelet Count 304 K/mm3 (150-450); RBC Distribution Width CV 14.7 % (11.6-14.6); RBC Distribution Width SD 44.6 fl (35.1-43.9); Red Blood Count 4.75 M/mm3 (4.2-5.4); White Blood Count 10.7 K/mm3 (4.4-11.0)
[2024-10-12 11:39] LABS: Anion Gap 5 (5-15); BNP,B-Type NATRIURETIC PEPTIDE 469.8 pg/mL (0-100); BUN 12 mg/dL (7-18); BUN/Creat Ratio 12.2 RATIO (10-20); Calcium,Total 9.4 mg/dL (8.5-10.1); Chloride 101 mmol/L (98-107); Creatinine, Serum 0.99 mg/dL (0.55-1.02); EST Glomerular Filtration Rate 56 mL/min (>60); Est Glom Filt Rate - Afr Amer 68 mL/min (>60); Glucose 65 mg/dL (74-106); Potassium 3.9 mmol/L (3.5-5.1); Sodium Level 136 mmol/L (136-145); Troponin-I HS 9 pg/mL (3.0-54.0)
[2024-10-12 12:04] LABS: Bacteria 0 SEEN /hpf (None Seen); Mucous, Urine 0 SEEN /hpf (<or=2+); Red Blood Cells-Urine 0 SEEN /hpf (0-5); Squamous Epithelial Cells - UA 0 SEEN /hpf (5-10); White Blood Cells 0 SEEN /hpf (0-5)
[2024-10-12 12:08] LABS: Bedside Glucose 88 mg/dL (74-106)
[2024-10-12 12:13] LABS: Color, Urine Straw (Yellow); Glucose, Dipstick Normal (Normal); Ketone-Dipstick Negative (Negative); Leukocyte Esterase-Dipstick Negative /ul (Negative); Nitrite-Dipstick Negative (Negative); Occult Blood-Urine Negative /ul (Negative); Protein-Dipstick Negative (Negative); Specific Gravity, Urine 1.005 (1.002-1.030); Urine Bilirubin Dipstick Negative (Negative); Urine Clarity Clear (Clear); Urine Urobilinogen Normal (Normal); Urine pH 6.5 (5.0 - 8.0)
[2024-10-12] MEDS: Furosemide 40 MG/4 ML Vial IV (12:26)
[2024-10-12] MEDS: Ceftriaxone 1 GM/50 ML BAG IV (12:26)
--- NOTE | 2024-10-12 12:53 | PCM.HP.STD ---
HPI - General General Date of Service: 10/12/24 Chief Complaint: Shortness of breath and cough HPI Narrative KYLE ARROYO, is a 88 F who presents with several weeks of shortness of breath and cough. Has gotten worse. Noted to be hypoxic at home.. Patient has a known history of dysphagia and did vomit last Friday. Has not gotten any better despite this. Presented to the emergency room concern was for developing pneumonia and heart failure and patient received ceftriaxone and azithromycin and Lasix. The hospital service was contacted because the patient was a 7% on room air. Patient is on oxygen at home but only at night which he does not use frequently and she is on oxygen at night for sleep apnea. Patient has been told she needs wear CPAP but cannot tolerate it. Patient has no dysphagia and was scheduled to have a swallowing study with radiology this coming Friday. [facility] Medical History Wears glasses Wears dentures Diabetes Gastric reflux Chronic pancreatitis Sleep apnea Former smoker Cardiology follow-up encounter History of edema History of atrial fibrillation History of CHF (congestive heart failure) LUQ abdominal pain Leukocytosis Abdominal pain Anemia of chronic renal failure, stage 3 (moderate) Lower leg edema Osteopenia Vitamin D deficiency Esophageal reflux disease Pulmonary hypertension Carotid artery disease PVD (peripheral vascular disease) Ischemic cardiomyopathy PAD (peripheral artery disease) CKD (chronic kidney disease) Type 2 diabetes mellitus Macular degeneration EKATERINA (obstructive sleep apnea) Presence of stent in coronary artery Essential hypertension Atherosclerotic heart disease of [place] coronary artery without angina pectoris Mixed hyperlipidemia Pneumonia Hypoxia Syncope Dyslipidemia CAD (coronary artery disease) COPD (chronic obstructive pulmonary disease) Home Medications ?Medication ?Instructions ?Recorded ?Last Taken ?Type lansoprazole 30 mg capsule,delayed 30 mg PO DAILY ACID REFLUX 10/27/14 12/25/23 History release (Prevacid) multivitamin with folic acid 400 1 tab PO DAILY MULTIVITAMIN 10/27/14 12/25/23 History mcg tablet nitroglycerin 0.4 mg sublingual 0.4 mg sublingual Q5M PRN Chest 10/27/14 12/25/23 History tablet Pain vitamins A,C,H-hlaa-ctpxtj 4,296 1 ea PO BID SUPPLEMENT 10/27/14 12/25/23 History mcg-226 mg-90 mg capsule calcium carbonate 600 mg PO DAILY SUPPLEMENT 02/04/17 12/25/23 History albuterol sulfate 90 mcg/actuation 2 puff inhalation Q6H PRN Wheezing 04/07/19 12/25/23 History aerosol inhaler (Ventolin HFA) tiotropium bromide 2.5 2 puff inhalation DAILY breathing 04/07/19 12/25/23 History mcg/actuation mist for inhalation (Spiriva Respimat) metoprolol tartrate 50 mg tablet 50 mg PO BID blood pressure 04/08/19 12/25/23 History atorvastatin 40 mg tablet 40 mg PO QHS cholesterol lowering 10/12/20 12/24/23 History furosemide 20 mg tablet 20 mg PO DAILY water pill 10/12/20 12/25/23 History glimepiride 1 mg tablet 1 mg PO DAILY blood sugar 10/12/20 12/25/23 History isosorbide mononitrate 30 mg 30 mg PO DAILY heart 10/12/20 12/25/23 History tablet,extended release 24 hr mometasone-formoterol HFA 200 1 puff IH BID breathing 10/12/20 12/25/23 History mcg-5 mcg/actuation aerosol inhaler (Dulera) losartan 25 mg tablet 25 mg PO DAILY 01/25/22 12/25/23 History amlodipine 5 mg tablet 5 mg PO DAILY 12/25/23 12/25/23 History fluticasone propionate 50 2 spray intranasal DAILY PRN 12/25/23 12/25/23 History mcg/actuation nasal ALLERGIES spray,suspension (24 Hour Allergy Relief) [id number] See Rx Instructions PO .COMPLEX 03/22/24 Unknown Rx 24,000-76,000-120,000 unit #320 caps capsule,delayed rel (Creon) memantine 10 mg tablet 10 mg PO BID 03/24/24 Unknown History dicyclomine 10 mg capsule 10 mg PO TID #90 caps 08/03/24 Unknown Rx mirtazapine 7.5 mg tablet 15 mg PO QHS 09/16/24 Unknown History Allergy/AdvReac Type Severity Reaction Status Date / Time acetaminophen (From Tylenol) Allergy Hives Verified 10/12/24 10:31 iodine Allergy Hives Verified 10/12/24 10:31 nabumetone Allergy Unknown Verified 10/12/24 10:31 pregabalin (From Lyrica) Allergy Unknown Verified 10/12/24 10:31 Family History Father Heart disease Mother Cancer Brother Heart disease Surgical History History of hysterectomy History of cholecystectomy Presence of coronary angioplasty implant and graft H/O heart artery stent Social History household members: family Smoking Status: Former smoker alcohol intake: never substance use type: does not use caffeine: Yes Type: coffee Number of servings: 2 ROS ROS Narrative Some chest pain with coughing. Subjective chills. Coughing up some brownish type phlegm. All review of systems were negative except as mentioned above in the history of present illness and the other review of systems. Vital Signs Vital Signs Vital Signs: 10/12/24 10:30 10/12/24 10:30 10/12/24 11:26 Temperature 36.7 C 36.7 C Temperature Source Oral Oral Pulse Rate 73 74 Respiratory Rate 20 H 26 H Respiratory Effort Respiratory Depth Respiratory Pattern Blood Pressure 141/64 H 134/51 H Blood Pressure Mean 89 78 Pulse Ox 87 90 94 Oxygen Delivery Method Room Air Room Air Nasal Cannula Oxygen Flow Rate (L/min) 3 10/12/24 11:26 10/12/24 11:26 10/12/24 12:29 Temperature 36.9 C Temperature Source Oral Pulse Rate 77 Respiratory Rate 23 H Respiratory Effort Short of Breath Respiratory Depth Shallow Respiratory Pattern Tachypnea Blood Pressure 145/74 H Blood Pressure Mean 97 Pulse Ox 94 91 Oxygen Delivery Method Nasal Cannula Nasal Cannula Nasal Cannula Oxygen Flow Rate (L/min) 3 3 3 10/12/24 12:32 Temperature 36.9 C Temperature Source Pulse Rate 75 Respiratory Rate 26 H Respiratory Effort Respiratory Depth Respiratory Pattern Blood Pressure 140/49 H Blood Pressure Mean 79 Pulse Ox 91 Oxygen Delivery Method Oxygen Flow Rate (L/min) Physical Exam Const alert and no apparent distress Constitutional Narrative: Hard of hearing. Afebrile. Nontoxic. No respiratory stress. No conversational dyspnea. HEENT normocephalic and hearing grossly normal bilaterally Eyes Eyes Narrative: Glasses. Neck no lymphadenopathy Neck Narrative: No JVD Resp Resp Narrative: Bibasilar crackles and diffuse faint wheezes bilaterally. Cardio regular rate, regular rhythm, S1 normal heart sound and S2 normal heart sound GI normal to inspection, nondistended, normoactive bowel sounds, soft to palpation, non-tender and non-distended Extremity normal to inspection and no clubbing, cyanosis or edema Neuro moves all extremities and no focal motor deficits Sensorium / Orientation: awake and alert Psych affect normal Results Lab / Micro Data Attestation: I reviewed the patient's lab results. 10/12/24 11:15 10/12/24 11:15 Labs: Laboratory Results - last 24 hr 10/12/24 11:15: WBC 10.7, RBC 4.75, Hgb 12.6, Hct 39.2, MCV 82.5, MCH 26.5 L, MCHC 32.1, RDW Std Deviation 44.6 H, RDW Coeff of Christina 14.7 H, Plt Count 304, MPV 9.6, Immature Gran % (Auto) 0.800, Neut % (Auto) 68.7, Lymph % (Auto) 15.6 L, [place] % (Auto) 11.6 H, Eos % (Auto) 2.6, Baso % (Auto) 0.7, Absolute Neuts (auto) 7.4, Absolute Lymphs (auto) 1.67, Nucleated RBC % 0, Sodium 136, Potassium 3.9, Chloride 101, Carbon Dioxide 30.0, Anion Gap 5, BUN 12, Creatinine 0.99, Est GFR (MDRD) Af Amer 68, Est GFR (MDRD) Non-Af 56 L, BUN/Creatinine Ratio 12.2, Glucose 65 L, Calcium 9.4, Troponin I High Sens 9, B-Natriuretic Peptide 469.8 H 10/12/24 11:50: POC Glucose 88 10/12/24 11:59: Urine Color Straw, Urine Clarity Clear, Urine pH 6.5, Ur Specific [place] 1.005, Urine Protein Negative, Urine Glucose (UA) Normal, Urine Ketones Negative, Urine Occult Blood Negative, Urine Nitrite Negative, Urine Bilirubin Negative, Urine Urobilinogen Normal, Ur Leukocyte Esterase Negative, Urine RBC 0 SEEN, Urine WBC 0 SEEN, Ur Squamous Epith Cells 0 SEEN, Urine Bacteria 0 SEEN, Urine Mucus 0 SEEN Micro: Microbiology 10/12/24 11:25 Mucosa - Nose SARS-CoV-2, Influenza & RSV (PCR) - Final Imaging Radiology Impression Chest X-Ray 10/12/24 11:18 IMPRESSION: Small pleural effusions with increased basilar markings favoring atelectasis. Patchy left midlung opacity could be infectious or inflammatory. Electronically Signed: Rodo Parker MD at 11:35 EST , Assessment & Plan Assessment/Plan (1) Pneumonia: PLAN: Suspected aspiration given patient has known history of dysphagia. Patient already Maya does ceftriaxone and azithromycin today. Will initiate ampicillin/sulbactam starting on the . Pulmonary toilet. Check engines for Streptococcus and Legionella. Check sputum culture. (2) Dysphagia: PLAN: Speech therapy to eval Will order modified barium swallow (3) Acute exacerbation of chronic obstructive pulmonary disease: PLAN: Bronchodilators and prednisone for now. Wean oxygen as tolerated. PLAN: Plan Chronic conditions Sleep apnea: Patient cannot tolerate CPAP and so is mostly wearing oxygen at night. Explained the futility of wearing oxygen at night when she is having apneic events Hypertension: Continue with amlodipine, metoprolol, losartan. Dementia: Continue with memantine CHF: Not in exacerbation at this time. Continue with her oral furosemide, metoprolol and losartan. HFpEF with an EF of 70% from 2D echocardiogram on 06/25/2024. Patient also had pulmonary artery hypertension with PASP 45 mmHg. VTE prophylaxis: With enoxaparin CODE STATUS: Addressed with the patient. Patient wishes to be full code. I openly express the irony of the patient not wanting CPAP but is open to having CPR as well as ventilator. Patient verified that she wants everything done with exception of being on the CPAP for sleep apnea. Case discussed with patient's daughter at bedside. Charges/Coding Visit Charges Inpatient E&M: 79572 Init Hosp L3
[2024-10-12] MEDS: Azithromycin 500 MG in Dextrose 5%-Water (250mL Bag) 250 ML 250 MG IV (12:56)
[2024-10-12] MEDS: Dicyclomine 10 MG Capsule PO (15:30)
[2024-10-12] MEDS: predniSONE 20 MG Tablet 40 MG PO (15:30)
[2024-10-12 15:53] LABS: Bedside Glucose 155 mg/dL (74-106)
[2024-10-12] MEDS: Creon 24,000 unit DR Capsule PO (17:03)
[2024-10-12] MEDS: 0.9% Saline Lock 10 ML Syringe IV (17:04)
[2024-10-12] MEDS: NYSTATIN 500,000 UNIT/5 ML UDC 500000 UNIT PO ×2 (18:18→22:39)
[2024-10-12] MEDS: Memantine Hydrochloride 10 MG Tablet PO (22:39)
[2024-10-12] MEDS: Metoprolol Tartrate 50 MG Tablet PO (22:39)
[2024-10-12] MEDS: Atorvastatin Calcium 40 MG Tablet PO (22:39)
[2024-10-12] MEDS: Mirtazapine 15 MG Tablet PO (22:39)
[2024-10-12] MEDS: Menthol/Lanolin/Calamine/Znox 113 GM Tube 1 APPLIC TOPICAL (22:39)
[2024-10-13] VITALS (7 sets, daily range): BP systolic 123–163; BP diastolic 52–82; PULSE 71–85; RESP 18–20; TEMP 36.3–36.6; O2SAT 94–99
[2024-10-13 05:37] LABS: Absolute Lymphocyte Count 0.88 X10^3/uL (0.83-4.51); Absolute Neutrophil Count 6.7 X10^3/uL (2.0-7.7); Basophil# 0.01 X10^3/uL; Basophil% 0.1 % (0-1); Hematocrit 36.7 % (37-47); Hemoglobin 11.8 g/dL (12.0-15.0); Lymphocyte # 0.88 X10^3/ul (0.83-4.51); Lymphocyte % 11.3 % (19-41); Mean Corp Hgb Conc 32.2 g/dL (32-36); Mean Corpuscular Hgb 26.3 pg (27.0-32.0); Mean Corpuscular Volume 81.9 fL (81-99); Mean Platelet Vol. 9.9 fl (6.2-12.0); Monocyte# 0.16 X10^3/uL; NRBC Flagged by Analyzer 0 % (0-5); Neutrophil # 6.71 X10^3/uL (2.7-7.7); Platelet Count 296 K/mm3 (150-450); RBC Distribution Width CV 14.3 % (11.6-14.6); RBC Distribution Width SD 42.6 fl (35.1-43.9); Red Blood Count 4.48 M/mm3 (4.2-5.4); White Blood Count 7.8 K/mm3 (4.4-11.0)
[2024-10-13 06:14] LABS: Anion Gap 7 (5-15); BUN 13 mg/dL (7-18); BUN/Creat Ratio 16.8 RATIO (10-20); Calcium,Total 8.7 mg/dL (8.5-10.1); Chloride 97 mmol/L (98-107); Creatinine, Serum 0.78 mg/dL (0.55-1.02); EST Glomerular Filtration Rate 74 mL/min (>60); Est Glom Filt Rate - Afr Amer 90 mL/min (>60); Estimated Creatinine Clearance 39.19 ml/min; Glucose 158 mg/dL (74-106); Potassium 3.9 mmol/L (3.5-5.1); Sodium Level 133 mmol/L (136-145)
[2024-10-13] MEDS: Dicyclomine 10 MG Capsule PO ×3 (06:20→17:22)
[2024-10-13] MEDS: Ampicillin/Sulbactam 3 GM in 0.9% Normal Saline (100mL MB+) 100 ML IV ×4 (06:20→23:04)
[2024-10-13] MEDS: Lansoprazole 15 MG Capsule.DR 30 MG PO (06:20)
--- NOTE | 2024-10-13 07:24 | PCM.PN.HOSP ---
Reason for Visit Reason for Visit: Diagnoses Pneumonia, unspecified organism (10/12/24) Chronic obstructive pulmonary disease with (acute) exacerbation (10/12/24) Dysphagia, unspecified (10/12/24) Subjective Subjective Feeling well. Breathing better. Objective Data Objective Data Vital Signs: Vital Signs Temp Pulse Resp BP Pulse Ox O2 Del Method O2 Flow Rate 36.6 C 71 18 124/52 H 99 Room Air 2 10/13/24 04:28 10/13/24 04:28 10/13/24 04:28 10/13/24 04:28 10/13/24 04:28 10/13/24 04:32 10/12/24 20:30 Oxygen Flow Rate (L/min) 2 Oxygen Delivery Method Room Air Weight: 51.075 kg Body Mass Index (BMI) 19.3 Intake & Output: Intake and Output for Last 24 Hours 10/11/24 10/12/24 10/13/24 23:59 23:59 23:59 Intake Total 1505 / 1505 312 / 312 Output Total 400 / 400 Balance 1105 / 1105 312 / 312 Lab / Micro Data 10/13/24 05:11 10/13/24 05:11 Labs: Laboratory Results - last 24 hr 10/12/24 11:15: WBC 10.7, RBC 4.75, Hgb 12.6, Hct 39.2, MCV 82.5, MCH 26.5 L, MCHC 32.1, RDW Std Deviation 44.6 H, RDW Coeff of Christina 14.7 H, Plt Count 304, MPV 9.6, Immature Gran % (Auto) 0.800, Neut % (Auto) 68.7, Lymph % (Auto) 15.6 L, [place] % (Auto) 11.6 H, Eos % (Auto) 2.6, Baso % (Auto) 0.7, Absolute Neuts (auto) 7.4, Absolute Lymphs (auto) 1.67, Nucleated RBC % 0, Sodium 136, Potassium 3.9, Chloride 101, Carbon Dioxide 30.0, Anion Gap 5, BUN 12, Creatinine 0.99, Est GFR (MDRD) Af Amer 68, Est GFR (MDRD) Non-Af 56 L, BUN/Creatinine Ratio 12.2, Glucose 65 L, Calcium 9.4, Troponin I High Sens 9, B-Natriuretic Peptide 469.8 H 10/12/24 11:50: POC Glucose 88 10/12/24 11:59: Urine Color Straw, Urine Clarity Clear, Urine pH 6.5, Ur Specific [place] 1.005, Urine Protein Negative, Urine Glucose (UA) Normal, Urine Ketones Negative, Urine Occult Blood Negative, Urine Nitrite Negative, Urine Bilirubin Negative, Urine Urobilinogen Normal, Ur Leukocyte Esterase Negative, Urine RBC 0 SEEN, Urine WBC 0 SEEN, Ur Squamous Epith Cells 0 SEEN, Urine Bacteria 0 SEEN, Urine Mucus 0 SEEN 10/12/24 15:34: POC Glucose 155 H 10/13/24 05:11: WBC 7.8, RBC 4.48, Hgb 11.8 L, Hct 36.7 L, MCV 81.9, MCH 26.3 L, MCHC 32.2, RDW Std Deviation 42.6, RDW Coeff of Christina 14.3, Plt Count 296, MPV 9.9, Immature Gran % (Auto) 0.600, Neut % (Auto) 86.0 H, Lymph % (Auto) 11.3 L, [place] % (Auto) 2.0, Eos % (Auto) 0.0, Baso % (Auto) 0.1, Absolute Neuts (auto) 6.7, Absolute Lymphs (auto) 0.88, Nucleated RBC % 0, Sodium 133 L, Potassium 3.9, Chloride 97 L, Carbon Dioxide 29.0, Anion Gap 7, BUN 13, Creatinine 0.78, Estim Creat Clear Calc 39.19, Est GFR (MDRD) Af Amer 90, Est GFR (MDRD) Non-Af 74, BUN/Creatinine Ratio 16.8, Glucose 158 H, Calcium 8.7 Micro: Microbiology 10/12/24 15:05 Urine, Clean Catch Legionella Antigen - Final 10/12/24 15:05 Urine, Clean Catch Streptococcus pneumoniae Antigen (M - Final 10/12/24 11:25 Mucosa - Nose SARS-CoV-2, Influenza & RSV (PCR) - Final Radiography Diagnostic Testing: Radiology Impression Chest X-Ray 10/12/24 11:18 IMPRESSION: Small pleural effusions with increased basilar markings favoring atelectasis. Patchy left midlung opacity could be infectious or inflammatory. Electronically Signed: Rodo Parker MD at 11:35 EST Reading Location ID and State: [facility] / [place] Tel , Service support , Physical Exam Const alert and no apparent distress Resp normal respiratory effort, no retractions, no use of accessory muscles and clear to auscultation bilaterally Cardio regular rate, regular rhythm, S1 normal heart sound and S2 normal heart sound GI normal to inspection, nondistended, normoactive bowel sounds, soft to palpation, non-tender and non-distended Extremity normal to inspection Assessment & Plan Assessment/Plan (1) Pneumonia: PLAN: Suspected aspiration given patient has known history of dysphagia. Patient already Maya does ceftriaxone and azithromycin today. Will initiate ampicillin/sulbactam starting on the . Pulmonary toilet. Check engines for Streptococcus and Legionella. Check sputum culture. (2) Dysphagia: PLAN: Speech therapy to eval Modified barium swallow Recommending Regular textures and thin liquids (3) Acute exacerbation of chronic obstructive pulmonary disease: PLAN: Bronchodilators and prednisone for now. Wean oxygen as tolerated. (4) Thrush: PLAN: started on nystatin PLAN: Plan Chronic conditions Sleep apnea: Patient cannot tolerate CPAP and so is mostly wearing oxygen at night. Explained the futility of wearing oxygen at night when she is having apneic events Hypertension: Continue with amlodipine, metoprolol, losartan. Dementia: Continue with memantine CHF: Not in exacerbation at this time. Continue with her oral furosemide, metoprolol and losartan. HFpEF with an EF of 70% from 2D echocardiogram on 06/25/2024. Patient also had pulmonary artery hypertension with PASP 45 mmHg. EKATERINA: cannot tolerate CPAP, so wears oxygen at night. VTE prophylaxis: With enoxaparin CODE STATUS: Addressed with the patient. Patient wishes to be full code. I openly express the irony of the patient not wanting CPAP but is open to having CPR as well as ventilator. Patient verified that she wants everything done with exception of being on the CPAP for sleep apnea. Charges/Coding Visit Charges Inpatient E&M: 05063 Subs Hosp L2
[2024-10-13] MEDS: Memantine Hydrochloride 10 MG Tablet PO ×2 (08:05→21:06)
[2024-10-13] MEDS: Isosorbide Mononitrate 30 MG Tablet PO (08:05)
[2024-10-13] MEDS: Enoxaparin 40 MG/0.4 ML Syringe SC (08:05)
[2024-10-13] MEDS: NYSTATIN 500,000 UNIT/5 ML UDC 500000 UNIT PO ×4 (08:05→21:06)
[2024-10-13] MEDS: Metoprolol Tartrate 50 MG Tablet PO ×2 (08:06→21:05)
[2024-10-13] MEDS: predniSONE 20 MG Tablet 40 MG PO (08:06)
[2024-10-13] MEDS: amLODIPine 5 MG Tablet PO (08:06)
[2024-10-13] MEDS: Losartan Potassium 25 MG Tablet PO (08:06)
[2024-10-13] MEDS: Calcium Carbonate 500 MG Tablet PO (08:06)
[2024-10-13] MEDS: Creon 24,000 unit DR Capsule PO ×3 (08:06→17:22)
[2024-10-13] MEDS: Menthol/Lanolin/Calamine/Znox 113 GM Tube 1 APPLIC TOPICAL ×2 (08:07→21:06)
[2024-10-13] MEDS: Furosemide 20 MG Tablet PO (08:07)
--- NOTE | 2024-10-13 10:10 | ST.MBS ---
Modified Barium Swallow Patient Information Study Date: 10/13/24 Study Time: 09:30 Direct Billable Minutes: 180 Total Minutes procedure & reportin Diagnosis: Dysphagia Referring Physician: Trae Petersen Reason for Referral: Pt presented to [facility] ED 10/12/2024 w/ several weeks of SOB and cough, which has worsened. Noted to be hypoxic at home. Patient has a known history of dysphagia and did vomit last Friday. Has not gotten any better. Presented to the ED w/ concern for developing pneumonia and heart failure and patient received ceftriaxone and azithromycin and Lasix. Pt uses oxygen at home at night. Patient has been told she needs to wear CPAP but cannot tolerate it. Patient was scheduled to have an OP swallowing study 10/15/2024. Chest X-ray 10/12/2024 IMPRESSION: Small pleural effusions with increased basilar markings favoring atelectasis. Patchy left midlung opacity could be infectious or inflammatory. Pt referred for ST consult and MBSS upon admission to [facility]. Pt reports a several year history of difficulty swallowing solids w/ resultant weight loss/poorly fitting dentures. Pt denies difficulty swallowing liquids. Medical History: Wears glasses/dentures, Diabetes, Gastric reflux, Chronic pancreatitis, Sleep apnea, Former smoker, Cardiology follow-up encounter, History of edema, History of a fib, Hx of CHF, LUQ abdominal pain, Leukocytosis, Abdominal pain, Anemia of chronic renal failure, stage 3, Lower leg edema, Osteopenia, Vitamin D deficiency, Esophageal reflux disease, Pulmonary hypertension, CAD, PVD, Ischemic cardiomyopathy, PAD, CKD, Type 2 diabetes mellitus, Macular degeneration, EKATERINA, Presence of stent in coronary artery, Essential hypertension, Atherosclerotic heart disease of [place] coronary artery without angina pectoris, HLD, PNA, Hypoxia, Syncope, Dyslipidemia, COPD Current Diet Ordered: regular textures/thin liquids Dentition: Upper Dentures (loose) and Lower Dentures (loose) Mental Status: WNL (able to sufficiently follow commands for participation in MBSS ) Respiratory Status: Oxygenating on 2L/M nasal cannula Penetration-Aspiration Scale Penetration-Aspiration Scale: OBJECTIVE ASSESSMENT OF SWALLOW FUNCTION (QUANTITATIVE ? PER TRIAL): PENETRATION / ASPIRATION SCALE (PEREZ): 1 = does not enter airway 2 = enters airway/above vocal folds/ejected 3 = enters airway/above vocal folds/not ejected 4 = enters airway/contacts vocal folds/ejected 5 = enters airway/contacts vocal folds/not ejected 6 = enters airway/below vocal folds/ejected 7 = enters airway/below vocal folds/not ejected despite effort 8 = enters airway/below vocal folds/no effort VIDEOFLOROSCOPIC SCALE SCORE (PEREZ): Grade I = aspiration of material that has penetrated into the laryngeal vestibule, intact cough reflex Grade II = aspiration < 10 % of the bolus, intact cough reflex Grade III = aspiration of < 10 % of the bolus, reduced cough reflex or aspiration of > 10 % of the bolus, intact cough reflex Grade IV = aspiration of > 10 % of the bolus, reduced cough reflex Penetration-Aspiration Scale Score Thin Liquid via teaspoon: Result: 1= does not enter airway Thin Liquid via teaspoon Trial 2: Result: 2= enter airway/above vocal folds/ejected (trace/scant penetration during the swallow w/ complete ejection ) Thin Liquid via large single sip: cup: Result: 5= enters airways/contacts vocal folds/not ejected (penetration during the swallow, transiently dropping below the vocal folds during deglutition & again w/ cough and re-swallow - cough not effective to eject contrast from the laryngeal vestibule) Thin Liquid via large single sip: cued to swallow hard & fast: Result: 8= enters airway/below vocal folds/no effort (Grade III = aspiration of < 10 % of the bolus, reduced cough reflex; SILENT ASPIRATION ) Thin Liquid via small single sip: chin tuck: Result: 2= enter airway/above vocal folds/ejected (prandial aspiration of residue in the laryngeal vestibule from prior trial - PAS 8/Grade III = aspiration of < 10 % of the bolus, reduced cough reflex ) Thin Liquid via small single sip: cup: Result: 2= enter airway/above vocal folds/ejected Thin Liquid via small single sip: chin tuck Trial 2: Result: 1= does not enter airway Pudding via teaspoon: Result: 1= does not enter airway Finderne Thick Liquid via small single sip: cup: Result: 1= does not enter airway Thin Liquid via small single sip: cup Trial 2: Result: 2= enter airway/above vocal folds/ejected Thin Liquid via sequential sips: cup: Result: 8= enters airway/below vocal folds/no effort (Grade III = aspiration of < 10 % of the bolus, reduced cough reflex - TRACE ) Thin Liquid via large single sip: straw: Result: 8= enters airway/below vocal folds/no effort (Grade III = aspiration of < 10 % of the bolus, reduced cough reflex - TRACE ) Thin Liquid via small single sip: straw: Result: 1= does not enter airway Thin Liquid via small single sip: straw Trial 2: Result: 8= enters airway/below vocal folds/no effort Thin Liquid via small single sip: cup Trial 3: Result: 8= enters airway/below vocal folds/no effort (Grade III = aspiration of < 10 % of the bolus, reduced cough reflex - TRACE ) Thin Liquid via small single sip: cup Chin tuck Trial 3: Result: 1= does not enter airway Oral Phase Labial Seal: Escape beyond interlabial space; no extension beyond kimberly border Tongue Control During Bolus Hold: Escape to lateral buccal cavity/floor of mouth (partial escape to FOM) Bolus Preparation/Mastication: Slow prolonged chewing/mashing with complete recollection Bolus Transport/Lingual Motion: Slowed tongue motion Oral Residue: Trace residue lining oral structures Pharyngeal Phase Initiation of Pharyngeal Swallow: Bolus head in pyriforms Soft Palate Elevation: No bolus between soft palate and pharyngeal wall Laryngeal Elevation: Partial superior movement thyroid cart/partial apprx aryt-epig petiole Anterior Hyoid Excursion: No anterior movement Epiglottic Movement: Complete inversion Laryngeal Vestibule Closure at Height of Swallow: Incomplete; narrow column of air/contrast in laryngeal vestibule Pharyngeal Stripping Wave: Present - diminished Pharyngoesophageal Segment Opening: Parital distension and partial duration; parital obstruction of flow (CP bar present at ~C6 level) Tongue Base Retraction: Wide column of contrast between tongue base & post. pharyngeal wall Pharyngeal Residue: Collection of residue within or on pharyngeal structures Esophageal Phase Esophageal Clearance: Esophageal retention w/ retrograde flow through pharyngoesophageal seg (very minimal retrograde flow visualized 1x w/ complete esophageal clearance) Diagnosis/Impression Diagnosis: moderate oropharyngeal dysphagia Impression: Baseline view of larynx/esophagus - Darkened areas were observed near the esophagus, likely indicative of calcification or carotid artery stenosis. This oral phase is marked by... bolus loss to the floor of the mouth during cued oral holding trial slowed lingual motion for A-P bolus transportation The pharyngeal phase is marked by... delayed pharyngeal swallow onset w/ suboptimal bolus head location, liquids reaching the pyriforms prior to swallow onset reduced tongue base retraction decreased hyolaryngeal excursion resulting incomplete laryngeal vestibule closure w/ thin liquid penetrating the laryngeal vestibule before swallow onset and along w/ penetration/aspiration during the swallow - all aspiration was SILENT CP bar evident at the ~C-6 level although this did not significantly impact bolus clearance through the PES penetration/aspiration more frequently occurring w/ larger volume boluses, w/ liquid consumption via straw, and w/ head in a neutral/upright position use of small liquid bolus volume in conjunction w/ a chin tuck posture and elimitation of straw use was most effective to eliminate penetration/aspiration The esophageal phase is marked by... minimal retrograde flow noted 1x w/ complete esophageal clearance Recommendations Diet: Regular Textures (Easy to Chew) and Thin Liquids Comment: Diet: Regular - Easy to Chew Textures Thin Liquids Compensatory Strategies/Aspiration Precautions: small volume sips, one sip at a time w/ a CHIN TUCK posture no straws seated upright at 90 degrees for all PO intake oral hygiene before/after meals PATIENT IS A SILENT ASPIRATOR - DOES NOT COUGH OR CHOKE WHEN LIQUID ENTERS THE AIRWAY Supervision: Distant Supervision (provide verbal cues to ensure consistent chin tuck posture w/ liquids) Recommend Repeat Modified Barium Swallow: Yes Comment: Repeat MBSS following 4-[address] intervention targeting oropharyngeal swallow deficits w/ the following exercises: Effortful Swallow, Pitch Jumps, diana, CTAR (Chin Tuck Against Resistance), Jaymie Maneuver Need for Skilled Speech Therapy Services: Yes Education Completed: 1. Described result of evaluation. and 7. Pt requires further education on strategies & risks. Status Active ST Patient: Active Contact Information [facility] Speech Therapy:: Lucrecia Brown M.A. [employer] Speech-Language Pathologist [facility] [place] [address] [phone]
[2024-10-13] MEDS: 0.9% Saline Lock 10 ML Syringe IV (11:42)
--- NOTE | 2024-10-13 13:59 | CASEMGMT ---
Addendum entered by Terence Ndiaye 10/13/24 14:54: Educated on importance of wearing O2 @ home when pulse ox is <89%. Original Note: RN ITZEL assessment: RN CM to room to meet with patient for initial transition planning/care coordination assessment. RN ITZEL introduced self and role at [facility]. Patient sitting up in chair in room, alert and oriented. DaughterKatherin, @ bedside and pt agreeable to her being present during assessment. Patient willing to participate in assessment and is able to answer all questions appropriately. The following information obtained from both pt and daughter. Care providers, pharmacy, and demographics verified. PCP: Dr Salas Specialists: Dr Jasmin Avendano-pulmonology. Dr Louie-cardiology @ [facility], Dr Mcneill-podiatry, Dr Green- [facility] Pharmacy: Pt usually goes to [facility]. Pt and dtr would like to use [facility] @ discharge. Insurance: [employer] [facility] Prescription Benefit: yes LNOK: daughterKatherin Living Arrangements: Patient lives with daughter, daughter's boyfriend, and pt's son (special needs) with total of 3 steps to enter the home. Daughter assists pt w/stairs. Daughter takes care of pt--assists pt w/ADL's (bathing and dressing) and does all home mgnt tasks. Daughter also takes care of her brother. Transportation: daughter DME: Patient has cane, shower chair, raised toilet seat, walker, medical alert, lift chair, bed railing, nebulizer, grab bars, functioning glucometer w/supplies, and pulse ox at home. Pt has a BIPAP but does not wear. She also has O2 from [employer] that she has had since December but also does not wear this, even w/daughter's encouragement and instruction. Per daughter, Dr Cristina Avendano has informed them she would like pt to wear the O2 @ HS d/t sleep apnea and d/t not wearing CPAP. Pt and dtr made aware home O2 testing will be completed @ discharge to determine if she needs increase in home O2 needs. They do have portable O2 tank for pt to go home on. HHC/SNF: No previous hx of SNF. Pt had [facility] HHC in the past. Therapy has worked w/pt today. Pt able to ambulate 110 ft w/use of WW and SBA. Daughter states she was in the room when therapy walked w/pt. Pt and daughter wish for pt to discharge home and they feel safe w/her going home. They both would like [facility] again and decline wanting list of other HHC options unless [facility] unable to accept pt. Call placed to Lyssa @ [facility] and referral made for SN and PT/OT. She was made aware ST may be added on as well. Pt to have MBS today. Per daughter, they are in the process of getting an aide in the home for pt, she thinks it may be through [facility] but she is not sure. She states she has a call out to pt's insurance defense attorney for information needed, but has not heard back from them yet, stating It's been a couple months. She plans to f/u about this. Palliative Care: Pt meets criteria for palliative care per [facility] screening tool. Discussed palliative care and questions answered. They were also provided w/palliative info sheet. They are both interested in a referral to palliative. They both deny having other discharge needs/concerns. Plan: Home with HHC and family support.
--- NOTE | 2024-10-13 16:20 | CHAPLAIN ---
Type of Pastoral Visit _x__ Initial Visit ___ Follow-up Visit ___ On-call Visit ___ General Patient Visit ___ Spiritual Assessment ___ Family Conference ___ Bereavement ___ Rapid Response ___ Code Blue ___ Other (describe below) Pastoral Care Referral From _x__ Patient ___ Family ___ Nurse ___ Physician ___ Director [employer] ___ [employer] ___ Other (describe below) Sacrament/Intervention _x__ Active listening ___ Anointing ___ Temple ___ Bereavement ___ Communion ___ Shari exploration ___ _x__ Life review _x__ Prayer ___ Reconciliation ___ Sacrament of Sick ___ Supportive presence ___ Wedding ___ Other (describe below) Pastoral Comments patient and daughter are together; daughter asks for prayers for her brother too who is handicapped; daughter leaves; sat with patient to listen to her and offer a prayer
[2024-10-13 16:59] LABS: Bedside Glucose 258 mg/dL (74-106)
[2024-10-13] MEDS: Atorvastatin Calcium 40 MG Tablet PO (21:05)
[2024-10-13] MEDS: Mirtazapine 15 MG Tablet PO (21:06)
[2024-10-14] VITALS (7 sets, daily range): BP systolic 119–131; BP diastolic 44–73; PULSE 67–79; RESP 18; TEMP 36.5–36.9; O2SAT 85–98
[2024-10-14] MEDS: Lansoprazole 15 MG Capsule.DR 30 MG PO (05:24)
[2024-10-14] MEDS: Ampicillin/Sulbactam 3 GM in 0.9% Normal Saline (100mL MB+) 100 ML IV ×2 (05:25→11:58)
[2024-10-14] MEDS: Dicyclomine 10 MG Capsule PO ×2 (05:25→11:59)
--- NOTE | 2024-10-14 07:39 | PN.HOSP_ITS ---
Reason for Visit Reason for Visit: Diagnoses Candidal stomatitis (10/12/24) Pneumonia, unspecified organism (10/12/24) Chronic obstructive pulmonary disease with (acute) exacerbation (10/12/24) Dysphagia, unspecified (10/12/24) Subjective Subjective Feeling well. Ambulating w/o difficulty. Objective Data Objective Data Vital Signs: Vital Signs Temp Pulse Resp BP Pulse Ox O2 Del Method O2 Flow Rate 36.9 C 79 18 131/58 H 98 Nasal Cannula 2 10/14/24 02:42 10/14/24 02:42 10/14/24 02:42 10/14/24 02:42 10/14/24 02:42 10/14/24 02:42 10/14/24 02:42 Oxygen Flow Rate (L/min) 2 Oxygen Delivery Method Nasal Cannula Weight: 51.075 kg Body Mass Index (BMI) 19.3 Intake & Output: Intake and Output for Last 24 Hours 10/12/24 10/13/24 10/14/24 23:59 23:59 23:59 Intake Total 1505 / 1505 536 / 536 424 / 424 Output Total 400 / 400 Balance 1105 / 1105 536 / 536 424 / 424 Lab / Micro Data 10/13/24 05:11 10/13/24 05:11 Labs: Laboratory Results - last 24 hr 10/13/24 16:40: POC Glucose 258 H Micro: Microbiology 10/12/24 15:05 Sputum, Expectorated/Coughed Gram Stain - Final 10/12/24 15:05 Sputum, Expectorated/Coughed Respiratory Culture - Preliminary Appears to be normal respiratory ramya. Further studies to follow. 10/12/24 15:05 Urine, Clean Catch Legionella Antigen - Final 10/12/24 15:05 Urine, Clean Catch Streptococcus pneumoniae Antigen (M - Final 10/12/24 11:25 Mucosa - Nose SARS-CoV-2, Influenza & RSV (PCR) - Final Physical Exam Const alert and no apparent distress HEENT head/scalp atraumatic and moist oral mucous membranes Resp normal respiratory effort, no retractions, no use of accessory muscles and clear to auscultation bilaterally Cardio regular rate, regular rhythm, S1 normal heart sound and S2 normal heart sound Assessment & Plan Assessment/Plan (1) Pneumonia: PLAN: Suspected aspiration given patient has known history of dysphagia. Patient already Maya does ceftriaxone and azithromycin today. Will initiate ampicillin/sulbactam starting on the . Pulmonary toilet. Check engines for Streptococcus and Legionella. Sputum culture showed normal resp ramya. (2) Dysphagia: PLAN: Speech therapy to eval Modified barium swallow Recommending Regular textures and thin liquids Follow up with ST as outpt. (3) Acute exacerbation of chronic obstructive pulmonary disease: PLAN: Bronchodilators and prednisone for now. Wean oxygen as tolerated. (4) Thrush: PLAN: started on nystatin PLAN: Plan Chronic conditions * Sleep apnea: Patient cannot tolerate CPAP and so is mostly wearing oxygen at night. Explained the futility of wearing oxygen at night when she is having apneic events * Hypertension: Continue with amlodipine, metoprolol, losartan. * Dementia: Continue with memantine * CHF: Not in exacerbation at this time. Continue with her oral furosemide, metoprolol and losartan. HFpEF with an EF of 70% from 2D echocardiogram on 06/25/2024. Patient also had pulmonary artery hypertension with PASP 45 mmHg. * EKATERINA: cannot tolerate CPAP, so wears oxygen at night. VTE prophylaxis: With enoxaparin CODE STATUS: Addressed with the patient. Patient wishes to be full code. I openly express the irony of the patient not wanting CPAP but is open to having CPR as well as ventilator. Patient verified that she wants everything done with exception of being on the CPAP for sleep apnea. Disposition: to home with [facility]. Pt will require 2liters at rest and 3 liters w activity. Oxygen testing reviewed and patient is ambulatory in home and in the community and requires home oxygen with portability.
[2024-10-14 08:28] LABS: Bedside Glucose 98 mg/dL (74-106)
[2024-10-14] MEDS: predniSONE 20 MG Tablet 40 MG PO (09:56)
[2024-10-14] MEDS: Calcium Carbonate 500 MG Tablet PO (09:56)
[2024-10-14] MEDS: Enoxaparin 40 MG/0.4 ML Syringe SC (09:56)
[2024-10-14] MEDS: NYSTATIN 500,000 UNIT/5 ML UDC 500000 UNIT PO (09:56)
[2024-10-14] MEDS: Metoprolol Tartrate 50 MG Tablet PO (09:57)
[2024-10-14] MEDS: Furosemide 20 MG Tablet PO (09:57)
[2024-10-14] MEDS: Isosorbide Mononitrate 30 MG Tablet PO (09:57)
[2024-10-14] MEDS: Memantine Hydrochloride 10 MG Tablet PO (09:57)
[2024-10-14] MEDS: Losartan Potassium 25 MG Tablet PO (09:57)
[2024-10-14] MEDS: amLODIPine 5 MG Tablet PO (09:57)
[2024-10-14] MEDS: Creon 24,000 unit DR Capsule PO (11:58)
[2024-10-14 12:19] LABS: Bedside Glucose 187 mg/dL (74-106)
--- NOTE | 2024-10-14 12:22 | CASEMGMT ---
Addendum entered by Lakesha Beckman 10/14/24 14:12: Updated rx for oxygen sent to [facility] via [facility] at this time. [facility] aware that pt will dc today. They will see pt tomorrow. RN CM into pt room, discussed increased oxygen requirements with pt. She verbalized understanding. Pt is aware that [facility] will be out tomorrow to see her and palliative care will be in touch with her on a visit date and time. Pt denies further needs at this time. Original Note: Pt screened with [facility] Palliative Care screening tool, pt met criteria. Order received. Email to palliative for referral. TC to [facility], spoke to Lyssa, added ST to orders.
--- NOTE | 2024-10-14 12:34 | DS.PCM_ITS ---
Providers Date of Admission: 10/12/24 Primary Care Physician: Dr. Maria Antonia Salas MD Reason For Visit: PNEUMONIA Diagnosis Discharge Diagnosis (1) Pneumonia: Status: Acute Code(s): J18.9 - Pneumonia, unspecified organism Plan: Suspected aspiration given patient has known history of dysphagia. Patient already Maya does ceftriaxone and azithromycin today. Will initiate ampicillin/sulbactam starting on the . Pulmonary toilet. Check engines for Streptococcus and Legionella. Sputum culture showed normal resp ramya. (2) Dysphagia: Status: Acute Code(s): R13.10 - Dysphagia, unspecified Plan: Speech therapy to eval Modified barium swallow Recommending Regular textures and thin liquids Follow up with ST as outpt. (3) Acute exacerbation of chronic obstructive pulmonary disease: Status: Resolved Code(s): J44.1 - Chronic obstructive pulmonary disease with (acute) exacerbation Plan: Bronchodilators and prednisone for now. Wean oxygen as tolerated. (4) Thrush: Status: Acute Code(s): B37.0 - Candidal stomatitis Plan: started on nystatin Plan Chronic conditions * Sleep apnea: Patient cannot tolerate CPAP and so is mostly wearing oxygen at night. Explained the futility of wearing oxygen at night when she is having apneic events * Hypertension: Continue with amlodipine, metoprolol, losartan. * Dementia: Continue with memantine * CHF: Not in exacerbation at this time. Continue with her oral furosemide, metoprolol and losartan. HFpEF with an EF of 70% from 2D echocardiogram on 06/25/2024. Patient also had pulmonary artery hypertension with PASP 45 mmHg. * EKATERINA: cannot tolerate CPAP, so wears oxygen at night. VTE prophylaxis: With enoxaparin CODE STATUS: Addressed with the patient. Patient wishes to be full code. I openly express the irony of the patient not wanting CPAP but is open to having CPR as well as ventilator. Patient verified that she wants everything done with exception of being on the CPAP for sleep apnea. Disposition: to home with [facility]. Pt will require 2liters at rest and 3 liters w activity. Oxygen testing reviewed and patient is ambulatory in home and in the community and requires home oxygen with portability. Medications at Discharge Home Medications lansoprazole 30 mg capsule,delayed release (Prevacid) 30 mg PO DAILY ACID REFLUX 10/27/14 multivitamin with folic acid 400 mcg tablet 1 tab PO DAILY MULTIVITAMIN 10/27/14 nitroglycerin 0.4 mg sublingual tablet 0.4 mg sublingual Q5M PRN Chest Pain 10/27/14 vitamins A,C,O-pdol-crarkl 4,296 mcg-226 mg-90 mg capsule 1 ea PO BID SUPPLEMENT 10/27/14 calcium carbonate 600 mg PO DAILY SUPPLEMENT 02/04/17 albuterol sulfate 90 mcg/actuation aerosol inhaler (Ventolin HFA) 2 puff inhalation Q6H PRN Wheezing 04/07/19 tiotropium bromide 2.5 mcg/actuation mist for inhalation (Spiriva Respimat) 2 puff inhalation DAILY breathing 04/07/19 metoprolol tartrate 50 mg tablet 100 mg PO BID blood pressure 04/08/19 atorvastatin 40 mg tablet 40 mg PO QHS cholesterol lowering 10/12/20 furosemide 20 mg tablet 40 mg PO DAILY water pill 10/12/20 glimepiride 1 mg tablet 2.5 mg PO DAILY blood sugar 10/12/20 isosorbide mononitrate 30 mg tablet,extended release 24 hr 30 mg PO DAILY heart 10/12/20 mometasone-formoterol HFA 200 mcg-5 mcg/actuation aerosol inhaler (Dulera) 1 puff IH BID breathing 10/12/20 losartan 25 mg tablet 25 mg PO DAILY 01/25/22 amlodipine 5 mg tablet 5 mg PO DAILY 12/25/23 fluticasone propionate 50 mcg/actuation nasal spray,suspension (24 Hour Allergy Relief) 2 spray intranasal DAILY PRN ALLERGIES 12/25/23 [id number] 24,000-76,000-120,000 unit capsule,delayed rel (Creon) See Rx Instructions PO .COMPLEX #320 caps 03/22/24 memantine 10 mg tablet 10 mg PO BID 03/24/24 mirtazapine 7.5 mg tablet 15 mg PO QHS 09/16/24 dicyclomine 10 mg capsule 10 mg PO 4X/DAY 10/12/24 amoxicillin 875 mg-potassium clavulanate 125 mg tablet 1 tab PO BID #10 tabs 10/14/24 nystatin 100,000 unit/mL oral suspension 500,000 unit (5 mL) PO 4X/DAY 5 days #100 mL 10/14/24 prednisone 20 mg tablet 40 mg (2 x 20 mg) PO BREAKFAST #4 tabs 10/14/24 Hospital Course Operations None Procedures None Summary of Care Provided Minutes Spent on Discharge: 31 Hospital Course: This is an 88-year-old female presents with several week history of shortness of breath cough that is progressively getting worse. Patient was noted to be hypoxic on room air. Patient was not 7% as mentioned in HPI, rather she was 87% on room air. Patient was treated for pneumonia as well as COPD exacerbation. Patient has remained stable here. Patient will be discharged with Augmentin for concern for aspiration pneumonia as well as completed course of prednisone. Patient has had issues with dysphagia chronically and was scheduled to have a modified barium swallow later this week. That was performed while she was here and they recommended regular textures and thin liquids and patient to follow-up with speech therapy as outpatient. Digit was noted by nursing the patient has some thrush the patient has been started on nystatin will complete a 7-day course. Weight / BMI Weight Weight: 51.075 kg Body Mass Index (BMI) 19.3 ABG / Lab / Microbiology Data 10/13/24 05:11 10/13/24 05:11 Laboratory: Laboratory Results - last 24 hr 10/13/24 16:40: POC Glucose 258 H 10/14/24 08:11: POC Glucose 98 10/14/24 11:56: POC Glucose 187 H Microbiology: Microbiology 10/12/24 15:05 Sputum, Expectorated/Coughed Gram Stain - Final 10/12/24 15:05 Sputum, Expectorated/Coughed Respiratory Culture - Final Mixed normal respiratory ramya. No Streptococcus pneumoniae, beta-hemolytic Streptococcus or Staphylococcus aureus isolated. 10/12/24 15:05 Urine, Clean Catch Legionella Antigen - Final 10/12/24 15:05 Urine, Clean Catch Streptococcus pneumoniae Antigen (M - Final 10/12/24 11:25 Mucosa - Nose SARS-CoV-2, Influenza & RSV (PCR) - Final D/C Instructions Discharge Diet: No restrictions DC O2, CPAP, BIPAP Needs RN Home O2 Qualification: Home O2 Qualification: Is the patient on home oxygen Yes 10/14/24 10:51 Home O2 Qualification: AT REST 1-Pulse Ox at rest 94 10/14/24 10:51 1- Oxygen flow rate at rest 0 10/14/24 10:51 Home O2 Qualification: WITH AMBULATION 1- Pulse Ox with ambulation 88 10/14/24 10:51 1- Oxygen Flow Rate with 2 10/14/24 10:51 ambulation 2- Pulse Ox with ambulation 91 10/14/24 10:51 2- Oxygen Flow Rate with 3 10/14/24 10:51 ambulation Additional Home O2 Discharge instructions: Yes Type of respiratory needs?: Oxygen Oxygen frequency: Continuous Continuous oxygen liters per minute: 2 and With Ambulation Oxygen liters per minute during Ambulation: 3 DC home with Oxygen: Yes Home O2 MD Review: I have reviewed the oxygen testing, and the patient qualifies for home oxygen equipment and portability. The patient is mobile in the home and the community. Meaningful Use Info Meaningful Use Meaningful Use Diagnoses (Choose all that apply): None applicable Ischemic Stroke Statin Dosing Therapy Reference: STATIN DOSE THERAPY REFERENCE: * Patients > 75 years receive moderate or high dose statin therapy. * Patients 75 years or YOUNGER should receive HIGH intensity statin dose unless contraindicated. You will be required to document reason for non-treatment if statin daily dose does not meet guidelines. HIGH DOSE STATIN THERAPY DAILY Atorvastatin > than or = to 40 mg Rosuvastatin > than or = to 20 mg Amlodipine + Atorvastatin > than or = to 2.5/40 mg Ezetimibe + Simvastatin 10/80 mg Simvastatin 80mg Discharge Plan Admission Admit Date/Time: 10/12/24 12:39 Primary Reason for Your Visit: Pneumonia Attending Provider: Trae Petersen Primary Care Provider: Maria Antonia Salas Discharge Orders/Prescriptions Prescriptions: New nystatin 100,000 unit/mL Suspension 500,000 unit PO 4X/DAY 5 Days Qty: 100 0RF prednisone 20 mg Tablet 40 mg PO BREAKFAST Qty: 4 0RF amoxicillin-pot clavulanate 875-125 mg tablet 1 tab PO BID Qty: 10 0RF Continued Spiriva Respimat 2.5 mcg/actuation mist 2 puff INHALATION DAILY albuterol sulfate [Ventolin HFA] 90 mcg/actuation HFA aerosol inhaler 2 puff INHALATION Q6H PRN (Reason: Wheezing) metoprolol tartrate 50 mg tablet 100 mg PO BID Patient Comments: 100 mg twice a day short acting losartan 25 mg tablet 25 mg PO DAILY memantine 10 mg tablet 10 mg PO BID mirtazapine 7.5 mg tablet 15 mg PO QHS lansoprazole [Prevacid] 30 MG capsule 30 mg PO DAILY nitroglycerin 0.4 MG tablet 0.4 mg sublingual Q5M PRN (Reason: Chest Pain) vitamins A,C,P-tjne-lhicwz 1 EACH capsule 1 ea PO BID multivitamin with folic acid 1 TABLET tablet 1 tab PO DAILY calcium carbonate 600 MG tablet 600 mg PO DAILY atorvastatin 40 MG tablet 40 mg PO QHS glimepiride 1 MG tablet 2.5 mg PO DAILY Dulera 13 GM HFA aerosol inhaler 1 puff IH BID isosorbide mononitrate 30 MG tablet extended release 24 hr 30 mg PO DAILY furosemide 20 MG tablet 40 mg PO DAILY amlodipine 5 mg tablet 5 mg PO DAILY fluticasone propionate [24 Hour Allergy Relief] 50 mcg/actuation spray,suspension 2 spray intranasal DAILY PRN (Reason: ALLERGIES) Rx Instructions: administer into each nostril Creon 24,000-76,000 -120,000 unit capsule,delayed release(DR/EC) See Rx Instructions PO .COMPLEX Qty: 320 5RF Rx Instructions: Take 2-3 capsules with meals and 1-2 with snacks No Action dicyclomine 10 mg capsule 10 mg PO 4X/DAY Referrals / Follow Up: Maria Antonia Salas MD [Primary Care Provider] - Within 2 Weeks Disposition Disposition (needs filled in before D/C Order can be placed): Home Health Service Charges/Coding Visit Charges Inpatient E&M: 07213 Disch Hosp >30min
== END 2024-10-14 15:00 | disposition home health service (06) | DRG 190 ==
LOC: ED 12:27 → MS3 14:04
PROVIDERS: Emergency Provider Emergency Medicine; PCP Internal Medicine
DX: J44.1 Chronic obstructive pulmonary disease with (acute) exacerbation (principal); J69.0 Pneumonitis due to inhalation of food and vomit; B37.0 Candidal stomatitis; I13.0 Hypertensive heart and chronic kidney disease with heart failure and stage 1 through stage 4 chronic kidney disease, or unspecified chronic kidney disease; I50.32 Chronic diastolic (congestive) heart failure; I27.21 Secondary pulmonary arterial hypertension; R13.12 Dysphagia, oropharyngeal phase; E11.22 Type 2 diabetes mellitus with diabetic chronic kidney disease; N18.30 Chronic kidney disease, stage 3 unspecified; F03.90 Unspecified dementia, unspecified severity, without behavioral disturbance, psychotic disturbance, mood disturbance, and anxiety; I25.10 Atherosclerotic heart disease of native coronary artery without angina pectoris; G47.33 Obstructive sleep apnea (adult) (pediatric); E78.2 Mixed hyperlipidemia; Z95.5 Presence of coronary angioplasty implant and graft; Z79.51 Long term (current) use of inhaled steroids; Z79.84 Long term (current) use of oral hypoglycemic drugs; Z79.899 Other long term (current) drug therapy; Z87.891 Personal history of nicotine dependence
CPT/HCPCS: 36415; 71046; 74230; 80048; 81001; 82962; 83880; 84484; 85025; 87070; 87205; 87449; 87631; 92526; 92610; 92611; 93005; 97110; 97116; 97162; 97166; 97535; 97802; 99285; J7030; A4216; J0295; J1940

== ENCOUNTER 2024-11-07 17:50 | Inpatient (IN) | payer MEDICARE, SELFPAY ==
[2024-11-07] VITALS (9 sets, daily range): BP systolic 92–129; BP diastolic 42–60; PULSE 74–83; RESP 16–20; TEMP 36.6–36.9; O2SAT 92–96; BMI 25.7
--- NOTE | 2024-11-07 18:20 | EKG12_ITS ---
Test Reason : SOB Blood Pressure : */* mmHG Vent. Rate : 70 BPM Atrial Rate : 70 BPM P-R Int : 150 ms QRS Dur : 66 ms QT Int : 366 ms P-R-T Axes : 79 25 60 degrees QTcB Int : 395 ms Normal sinus rhythm Nonspecific ST abnormality Abnormal ECG Confirmed by Jono Smith ([id number]), graphics editor NALDO KAY ([id number]) on 11/08/2024 9:57:30 AM Referred By: Confirmed By: Jono Smith
--- NOTE | 2024-11-07 18:22 | EDS_ITS ---
HPI History of Present Illness Chief Complaint: Shortness of Breath Informant: patient and family (Daughter at bedside) Onset/Context/Timing Onset: Today Context: gradual Timing: Continuous Quality: Positive for Wheezing Current Severity: Moderate Maximum Severity: Moderate Worsened by: Exertion and Coughing Relieved by: Oxygen Associated Symptoms cough Chest Pain: Positive for None Narrative Narrative: 89-year-old female history of COPD supposedly on 3 L of oxygen at home she refuses to wear at night and now the daughter does not think the tanks working. She also has a history of some dementia CHF, CAD, chronic kidney disease, diabetes and aspiration. Patient was diagnosed with pneumonia and was admitted on October 12. She was then discharged home. She currently lives with her daughter. On the she was diagnosed with COVID and placed on Paxlovid which she just finished. Now she is having more wheezing, yellowish productive sputum and shortness of breath. Daughter does not believe the oxygen tank is working at home but they did not bring it with them. She denies any chest pain. No leg swelling. No hemoptysis. No history of DVT or PE. PE Risk Factors: Negative for Cancer, OCP + Smoking + > 35, Prior DVT or PE, Recent surgery or Recent travel Prior similar symptoms: Yes Recent Illness/Hospitalization: Yes [facility] Medical History Anxiety Depression Osteoporosis Rheumatoid arthritis Kidney disease Pancreatitis On home oxygen therapy COPD (chronic obstructive pulmonary disease) Dementia Wears glasses Wears dentures Diabetes Gastric reflux Chronic pancreatitis Sleep apnea Former smoker Cardiology follow-up encounter History of edema History of atrial fibrillation History of CHF (congestive heart failure) LUQ abdominal pain Leukocytosis Abdominal pain Anemia of chronic renal failure, stage 3 (moderate) Lower leg edema Osteopenia Vitamin D deficiency Esophageal reflux disease Pulmonary hypertension Carotid artery disease PVD (peripheral vascular disease) Ischemic cardiomyopathy PAD (peripheral artery disease) CKD (chronic kidney disease) Type 2 diabetes mellitus Macular degeneration EKATERINA (obstructive sleep apnea) Presence of stent in coronary artery Essential hypertension Atherosclerotic heart disease of [place] coronary artery without angina pectoris Mixed hyperlipidemia Pneumonia Hypoxia Syncope Dyslipidemia CAD (coronary artery disease) COPD (chronic obstructive pulmonary disease) Home Medications ?Medication ?Instructions ?Recorded ?Last Taken ?Type lansoprazole 30 mg capsule,delayed 30 mg PO DAILY ACID REFLUX 10/27/14 12/25/23 History release (Prevacid) multivitamin with folic acid 400 1 tab PO DAILY MULTIVITAMIN 10/27/14 12/25/23 History mcg tablet nitroglycerin 0.4 mg sublingual 0.4 mg sublingual Q5M PRN Chest 10/27/14 12/25/23 History tablet Pain vitamins A,C,O-xhjb-nirpyr 4,296 1 ea PO BID SUPPLEMENT 10/27/14 12/25/23 History mcg-226 mg-90 mg capsule calcium carbonate 600 mg PO DAILY SUPPLEMENT 02/04/17 12/25/23 History albuterol sulfate 90 mcg/actuation 2 puff inhalation Q6H PRN Wheezing 04/07/19 12/25/23 History aerosol inhaler (Ventolin HFA) tiotropium bromide 2.5 2 puff inhalation DAILY breathing 04/07/19 12/25/23 History mcg/actuation mist for inhalation (Spiriva Respimat) metoprolol tartrate 50 mg tablet 100 mg PO BID blood pressure 04/08/19 12/25/23 History atorvastatin 40 mg tablet 40 mg PO QHS cholesterol lowering 10/12/20 12/24/23 History furosemide 20 mg tablet 40 mg PO DAILY water pill 10/12/20 12/25/23 History glimepiride 1 mg tablet 2.5 mg PO DAILY blood sugar 10/12/20 12/25/23 History isosorbide mononitrate 30 mg 30 mg PO DAILY heart 10/12/20 12/25/23 History tablet,extended release 24 hr mometasone-formoterol HFA 200 1 puff IH BID breathing 10/12/20 12/25/23 History mcg-5 mcg/actuation aerosol inhaler (Dulera) losartan 25 mg tablet 25 mg PO DAILY 01/25/22 12/25/23 History fluticasone propionate 50 2 spray intranasal DAILY PRN 12/25/23 12/25/23 History mcg/actuation nasal ALLERGIES spray,suspension (24 Hour Allergy Relief) [id number] See Rx Instructions PO .COMPLEX 03/22/24 Unknown Rx 24,000-76,000-120,000 unit #320 caps capsule,delayed rel (Creon) memantine 10 mg tablet 10 mg PO BID 03/24/24 Unknown History mirtazapine 7.5 mg tablet 15 mg PO QHS 09/16/24 Unknown History dicyclomine 10 mg capsule 10 mg PO 4X/DAY 10/12/24 Unknown History nystatin 100,000 unit/mL oral 500,000 unit (5 mL) PO 4X/DAY 5 10/14/24 Unknown Rx suspension days #100 mL prednisone 20 mg tablet 40 mg (2 x 20 mg) PO BREAKFAST #4 10/14/24 Unknown Rx tabs amlodipine 10 mg tablet 10 mg PO DAILY 11/07/24 Unknown History Allergy/AdvReac Type Severity Reaction Status Date / Time acetaminophen (From Tylenol) Allergy Hives Verified 11/07/24 17:51 iodine Allergy Hives Verified 11/07/24 17:51 nabumetone Allergy Unknown Verified 11/07/24 17:51 pregabalin (From Lyrica) Allergy Unknown Verified 11/07/24 17:51 Family History Father Heart disease Mother Cancer Brother Heart disease Surgical History History of appendectomy History of coronary artery stent placement History of hysterectomy History of cholecystectomy Presence of coronary angioplasty implant and graft H/O heart artery stent Social History household members: family Smoking Status: Former smoker alcohol intake: never substance use type: does not use caffeine: Yes Type: coffee Number of servings: 2 ROS ROS ED ROS Narrative Cough. Shortness of breath. Wheezing. Yellow sputum. Constitutional Constitutional ED: Denies chills or fever(s) Eyes Eyes: Denies blurry vision ENT ENT ED: Denies ear pain Cardiovascular Cardiovascular: Denies chest pain Respiratory/Chest Respiratory/Chest: Reports cough, dyspnea and sputum Gastrointestinal Gastrointestinal: Denies abdominal pain Genitourinary Genitourinary ED: Denies dysuria or hematuria Musculoskeletal Musculoskeletal: Denies arthralgias Integumentary Denies abscess Neurologic Neurologic: Denies headache(s) Psychiatric Psychiatric: Denies anxiety Endocrine Endocrinology: Denies cold intolerance Hematologic/Lymphatic Hematologic/Lymphatic: Denies easy bleeding Allergic/Immunologic Allergic/Immunologic ED: Denies mouth swelling, tongue swelling or urticaria EXAM Physical Exam Narrative Exam Narrative: 89-year-old female sitting upright in bed. Vital signs are stable on 3 L oxygen which she is supposed to be on home her pulse ox is 94%. No hypoxia on oxygen. Off oxygen she is hypoxic. H EENT exam moist mucous membranes. Dentures. Neck nontender no JVD. No lymphadenopathy. Lungs expiratory wheezing bilaterally. No rales or rhonchi. Equal symmetrical. Heart regular rhythm rate about 70 no murmur. Chest wall ribs nontender. Abdomen soft nontender. Moving all 4 extremities. Nontender no edema. Normal strength. Back nontender. She is awake and alert. Answering questions following commands. Daughter at bedside. Const Vital Signs: 11/07/24 17:51 11/07/24 18:35 11/07/24 18:37 Temperature 98 F Temperature Source Oral Pulse Rate 74 75 Respiratory Rate 16 18 Respiratory Effort Respiratory Depth Respiratory Pattern Blood Pressure 123/50 H Blood Pressure Mean 74 Pulse Ox 94 94 Oxygen Delivery Method Nasal Cannula Nasal Cannula Oxygen Flow Rate (L/min) 3 3 11/07/24 18:51 11/07/24 19:07 11/07/24 19:59 Temperature Temperature Source Pulse Rate 77 79 Respiratory Rate 20 H 16 Respiratory Effort Short of Breath Respiratory Depth Deep Respiratory Pattern Tachypnea Blood Pressure 129/59 H 124/52 H Blood Pressure Mean 82 76 Pulse Ox 93 93 Oxygen Delivery Method Nasal Cannula Nasal Cannula Nasal Cannula Oxygen Flow Rate (L/min) 3 3 3 11/07/24 21:00 Temperature Temperature Source Pulse Rate 77 Respiratory Rate 18 Respiratory Effort Respiratory Depth Respiratory Pattern Blood Pressure 125/60 H Blood Pressure Mean 81 Pulse Ox 94 Oxygen Delivery Method Nasal Cannula Oxygen Flow Rate (L/min) Positive well nourished and well developed; Negative for cachectic, contractures or unkempt General Appearance ED: well developed and NAD; Negative for unkempt, cachectic, contractures or pallor Nutritional Appearance: Negative for cachectic HEENT Reports moist mucous membranes atraumatic; Negative for trauma or tenderness Eyes PERRL and EOMs intact bilaterally General Eye ED: Negative for pale conjunctiva or scleral icterus Neck no lymphadenopathy, supple, no meningeal signs and no JVD General: Negative for tenderness Lymph Lymphatic: Negative for other Resp normal respiratory effort and No clear to auscultation bilaterally Resp Narrative: Prolonged expiratory phase. Expiratory wheezing. No rales or rhonchi. Equal symmetrical. Auscultation: wheezes Cardio regular rate, regular rhythm, S1 normal heart sound, S2 normal heart sound and no murmurs Rate: Negative for bradycardia or tachycardic Rhythm: Negative for abnormal rhythm GI non-tender, non-distended and no masses Palpation: soft; Negative for tender, guarding or rebound tenderness present Back/Spine no CVA tenderness and normal to inspection Extremity normal to inspection General Extremety ED: Negative for edema or tenderness General Extremity: Negative for edema Neuro CN's II-XII intact bilaterally Sensorium / Orientation: alert, oriented to person and oriented to place Motor Exam: strength 5/5 throughout Psych mental status grossly normal Appearance: Negative for unkempt Mood & Affect: Negative for depressed, anxious or tearful Thought Process: normal thought process Skin no wounds and skin turgor normal General Skin Exam: Negative for jaundice or pallor Lesions: no lesions Rashes: no rashes MDM MDM MDM Narrative Medical decision making narrative: 89-year-old female shortness of breath. History of COPD suspect exacerbation. Rule out pneumonia versus viral syndrome versus aspiration versus CHF. Treated with aerosols and IV Solu-Medrol. Cardiac and respiratory workup. Repeat exam at 7:20 and 8:15 PM. Patient is improving after the DuoNeb and albuterol aerosol and IV Solu-Medrol. She is resting comfortably. On her 3 L that she typically would wear at home she is 93 to 94%. She is in no distress. I went over the labs with the patient and her daughter at bedside. I think this is primarily exacerbation of COPD. Rule out a pneumonia. There may also be a component of pulmonary edema. I will speak to the hospitalist to decide if you want to start antibiotics. Given that her home O2 is not working and she is significantly hypoxic without oxygen she will need to be admitted tonight to have that worked out with the oxygen company. History & Record Review Discussion w/independent historian: Patient and Family Additional record(s) reviewed:: Prior inpatient record, Prior outpatient record, Prior ED visit and Prior labs Lab Data Attestation: I reviewed the patient's lab results. Lab results narrative: CBC shows a white count 11.8. H&H 10.7 and 33.2 consistent with prior chronic anemia. Platelets 276. Electrolytes show sodium 130. Gap 8. BUN of 20 creatinine of 1. Glucose 108. Troponin normal at 9. BNP at 676. Labs: Laboratory Results - last 24 hr 11/07/24 18:35 WBC 11.8 H RBC 4.09 L Hgb 10.7 L Hct 33.2 L MCV 81.2 MCH 26.2 L MCHC 32.2 RDW Std Deviation 46.0 H RDW Coeff of Christina 15.6 H Plt Count 276 MPV 10.0 Immature Gran % (Auto) 1.100 H Neut % (Auto) 78.8 H Lymph % (Auto) 10.0 L [place] % (Auto) 9.4 Eos % (Auto) 0.4 Baso % (Auto) 0.3 Absolute Neuts (auto) 9.3 H Absolute Lymphs (auto) 1.18 Nucleated RBC % 0 Sodium 130 L Potassium 3.8 Chloride 97 L Carbon Dioxide 25.0 Anion Gap 8 BUN 20 H Creatinine 1.05 H Est GFR (MDRD) Af Amer 64 Est GFR (MDRD) Non-Af 52 L BUN/Creatinine Ratio 19.0 Glucose 108 H Calcium 8.4 L Troponin I High Sens 9 B-Natriuretic Peptide 676.6 H Radiography Chest X-Ray - ED: 2 View, Read by ED Physician, Heart, Mediastinum, Bony Structures, Chronic Changes and Right Effusion Diagnostic Testing: Clinical Impression(s) from Imaging Studies Chest X-Ray 11/07/24 18:40 IMPRESSION: Pulmonary findings appear worse. Electronically Signed: Emir Malik MD at 18:55 EST Reading Location ID and State: [facility] / [place] , Service support , Chest x-ray, 2 views, AP and lateral, interpreted by myself shows significant chronic changes consistent with COPD. Normal cardiac silhouette. Small right pleural effusion. Bilateral atelectasis. Cannot rule out infiltrate. Similar to prior chest x-rays. Rhythm Strip Rhythm Strip: Sinus Rhythm Rate: 70 Ectopy: None EKG Initial EKG: Attestation: I personally reviewed and interpreted this EKG as follows: Interpretation: Sinus Rhythm and No Acute Injury Pattern Comments: Normal sinus rhythm rate of 70 no acute signs of HI or ischemia. No dysrhythmia. Discharge Plan Dx/Rx/DC Orders Clinical Impression: Acute dyspnea, Hypoxia, CHF (congestive heart failure), COVID, Acute exacerbation of chronic obstructive pulmonary disease Disposition Disposition: Acute [facility]
[2024-11-07] MEDS: Ipratropium/Albuterol Sulfate 3 ML AMPUL.NEB INHALATION (18:34)
[2024-11-07] MEDS: Albuterol 2.5 MG/3 ML VIAL.NEB. INHALATION (18:34)
[2024-11-07] MEDS: MethylPREDNISolone 125 MG/2 ML Vial IV (18:36)
--- NOTE | 2024-11-07 18:40 | RAD_ITS ---
STUDY: XR Chest 2 Views 11/07/2024 6:43 PM REASON FOR EXAM: Female, 89 years old. chest pain COMPARISON: 10.12.24 TECHNIQUE: XR Chest 2 Views FINDINGS: There are bilateral pleural effusions. There are bilateral infiltrates. Enlarged heart size. Normal mediastinum. Normal meka. Prominent appearing increased interstitial lung markings. Normal visualized pulmonary arteries. There is atherosclerotic calcification of the aortic arch with tortuosity. There are diffuse degenerative changes of the visualized thoracic spine. There is degenerative osteoarthritis of the bilateral shoulders. There are no acute findings of the upper abdomen. RAD/Chest PA and Lateral IMPRESSION: Pulmonary findings appear worse. Electronically Signed: Emir Malik MD at 18:55 EST ,
[2024-11-07 18:56] LABS: Absolute Lymphocyte Count 1.18 X10^3/uL (0.83-4.51); Absolute Neutrophil Count 9.3 X10^3/uL (2.0-7.7); Basophil# 0.03 X10^3/uL; Basophil% 0.3 % (0-1); Eosinophil# 0.05 X10^3/uL; Eosinophils% 0.4 % (0-5); Hematocrit 33.2 % (37-47); Hemoglobin 10.7 g/dL (12.0-15.0); Lymphocyte # 1.18 X10^3/ul (0.83-4.51); Mean Corp Hgb Conc 32.2 g/dL (32-36); Mean Corpuscular Hgb 26.2 pg (27.0-32.0); Mean Corpuscular Volume 81.2 fL (81-99); Monocyte# 1.11 X10^3/uL; Monocyte% 9.4 % (0-10); NRBC Flagged by Analyzer 0 % (0-5); Neutrophil # 9.33 X10^3/uL (2.7-7.7); Neutrophil % 78.8 % (47-70); Platelet Count 276 K/mm3 (150-450); RBC Distribution Width CV 15.6 % (11.6-14.6); Red Blood Count 4.09 M/mm3 (4.2-5.4); White Blood Count 11.8 K/mm3 (4.4-11.0)
[2024-11-07 19:13] LABS: Anion Gap 8 (5-15); BUN 20 mg/dL (7-18); Calcium,Total 8.4 mg/dL (8.5-10.1); Chloride 97 mmol/L (98-107); Creatinine, Serum 1.05 mg/dL (0.55-1.02); EST Glomerular Filtration Rate 52 mL/min (>60); Est Glom Filt Rate - Afr Amer 64 mL/min (>60); Glucose 108 mg/dL (74-106); Potassium 3.8 mmol/L (3.5-5.1); Sodium Level 130 mmol/L (136-145); Troponin-I HS 9 pg/mL (3.0-54.0)
[2024-11-07 19:25] LABS: BNP,B-Type NATRIURETIC PEPTIDE 676.6 pg/mL (0-100)
--- NOTE | 2024-11-07 22:51 | PCM.HP.STD ---
[facility] - General General Date of Admission: 11/07/24 Date of Service: 11/07/24 Chief Complaint: Shortness of breath HPI Narrative KYLE ARROYO, is a 89 F who presented to the emergency department [facility] on 11/07/2019 for the chief complaint of shortness of breath. The patient is supposed to be on 3 L of oxygen at home [id number] however she has been noncompliant. They tried to put her on her oxygen at night when she was experiencing shortness of breath and they got no flow from the machine so they suspect either the tank is broken or out of oxygen. Given that, they brought her to the emergency department. She was diagnosed with COVID on 11/01/2024 and completed of course of Paxlovid which she just finished. She was doing better and then recently had developed more wheezing, yellowish productive sputum and shortness of breath. She states she is felt more generalized weakness as of lately but no fever. She is having some intermittent chills and p.o. intake has been less. She has had no nausea vomiting or diarrhea. She has had no chest pain. She has fairly significant COPD and a long history of tobacco abuse however she has not smoked for several years. Vital signs on presentation showed a temperature of 98 degrees, heart rate 74, respiratory 16, blood pressure is 123/58 and pulse ox was 94% on 3 L nasal cannula. CBC showed a mild leukocytosis but white count of 11.8, hemoglobin of 10.7 which appears to be close to her baseline. She did have a left shift with a 78.8% neutrophilia and a lymphopenia. Chemistry panel shows hyponatremia the sodium of 130, BUN was 20 and serum creatinine was 1.05 troponin was normal but her BNP was elevated at 676.6. She was here in October for pneumonia at which time her BNP was 469.8. She had an echocardiogram done at that time that showed an EF of 70% and pulmonary systolic pressure of 50 mmHg with moderate pulmonary hypertension. [facility] Medical History Anxiety Depression Osteoporosis Rheumatoid arthritis Kidney disease Pancreatitis On home oxygen therapy COPD (chronic obstructive pulmonary disease) Dementia Wears glasses Wears dentures Diabetes Gastric reflux Chronic pancreatitis Sleep apnea Former smoker Cardiology follow-up encounter History of edema History of atrial fibrillation History of CHF (congestive heart failure) LUQ abdominal pain Leukocytosis Abdominal pain Anemia of chronic renal failure, stage 3 (moderate) Lower leg edema Osteopenia Vitamin D deficiency Esophageal reflux disease Pulmonary hypertension Carotid artery disease PVD (peripheral vascular disease) Ischemic cardiomyopathy PAD (peripheral artery disease) CKD (chronic kidney disease) Type 2 diabetes mellitus Macular degeneration EKATERINA (obstructive sleep apnea) Presence of stent in coronary artery Essential hypertension Atherosclerotic heart disease of [place] coronary artery without angina pectoris Mixed hyperlipidemia Pneumonia Hypoxia Syncope Dyslipidemia CAD (coronary artery disease) COPD (chronic obstructive pulmonary disease) Home Medications ?Medication ?Instructions ?Recorded ?Last Taken ?Type lansoprazole 30 mg capsule,delayed 30 mg PO DAILY ACID REFLUX 10/27/14 12/25/23 History release (Prevacid) multivitamin with folic acid 400 1 tab PO DAILY MULTIVITAMIN 10/27/14 12/25/23 History mcg tablet nitroglycerin 0.4 mg sublingual 0.4 mg sublingual Q5M PRN Chest 10/27/14 12/25/23 History tablet Pain vitamins A,C,Y-jyly-urkjmd 4,296 1 ea PO BID SUPPLEMENT 10/27/14 12/25/23 History mcg-226 mg-90 mg capsule calcium carbonate 600 mg PO DAILY SUPPLEMENT 02/04/17 12/25/23 History albuterol sulfate 90 mcg/actuation 2 puff inhalation Q6H PRN Wheezing 04/07/19 12/25/23 History aerosol inhaler (Ventolin HFA) tiotropium bromide 2.5 2 puff inhalation DAILY breathing 04/07/19 12/25/23 History mcg/actuation mist for inhalation (Spiriva Respimat) metoprolol tartrate 50 mg tablet 100 mg PO BID blood pressure 04/08/19 12/25/23 History atorvastatin 40 mg tablet 40 mg PO QHS cholesterol lowering 10/12/20 12/24/23 History furosemide 20 mg tablet 40 mg PO DAILY water pill 10/12/20 12/25/23 History glimepiride 1 mg tablet 2.5 mg PO DAILY blood sugar 10/12/20 12/25/23 History isosorbide mononitrate 30 mg 30 mg PO DAILY heart 10/12/20 12/25/23 History tablet,extended release 24 hr mometasone-formoterol HFA 200 1 puff IH BID breathing 10/12/20 12/25/23 History mcg-5 mcg/actuation aerosol inhaler (Dulera) losartan 25 mg tablet 25 mg PO DAILY 01/25/22 12/25/23 History fluticasone propionate 50 2 spray intranasal DAILY PRN 12/25/23 12/25/23 History mcg/actuation nasal ALLERGIES spray,suspension (24 Hour Allergy Relief) [id number] See Rx Instructions PO .COMPLEX 03/22/24 Unknown Rx 24,000-76,000-120,000 unit #320 caps capsule,delayed rel (Creon) memantine 10 mg tablet 10 mg PO BID 03/24/24 Unknown History mirtazapine 7.5 mg tablet 15 mg PO QHS 09/16/24 Unknown History dicyclomine 10 mg capsule 10 mg PO 4X/DAY 10/12/24 Unknown History nystatin 100,000 unit/mL oral 500,000 unit (5 mL) PO 4X/DAY 5 10/14/24 Unknown Rx suspension days #100 mL prednisone 20 mg tablet 40 mg (2 x 20 mg) PO BREAKFAST #4 10/14/24 Unknown Rx tabs amlodipine 10 mg tablet 10 mg PO DAILY 11/07/24 Unknown History Allergy/AdvReac Type Severity Reaction Status Date / Time acetaminophen (From Tylenol) Allergy Hives Verified 11/07/24 17:51 iodine Allergy Hives Verified 11/07/24 17:51 nabumetone Allergy Unknown Verified 11/07/24 17:51 pregabalin (From Lyrica) Allergy Unknown Verified 11/07/24 17:51 Family History Father Heart disease Mother Cancer Brother Heart disease Surgical History History of appendectomy History of coronary artery stent placement History of hysterectomy History of cholecystectomy Presence of coronary angioplasty implant and graft H/O heart artery stent Social History household members: family Smoking Status: Former smoker alcohol intake: never substance use type: does not use caffeine: Yes Type: coffee Number of servings: 2 ROS Constitutional Constitutional: Reports chills, fatigue and weakness; Denies anorexia, change in weight, fever(s), malaise, night sweats or other Eyes Eyes: Denies blurry vision, change in eye color, change in vision, discharge from eye(s), double vision, erythema, eye pain, loss of vision or other ENT HEENT: Reports abnormal hearing and hearing loss; Denies dysphagia, ear pain, epistaxis, headache(s), nasal congestion, nasal discharge, post nasal drip, sinus pressure, sore throat or other Cardiovascular Cardiovascular: Reports dyspnea on exertion; Denies chest pain, claudication, edema, lightheadedness, orthopnea, palpitations, paroxysmal nocturnal dyspnea, rapid heart rate, syncope or other Respiratory/Chest Respiratory/Chest: Reports cough, dyspnea, excessive phlegm production, productive cough, shortness of breath with exertion and wheezing; Denies hemoptysis, shortness of breath at rest or other Gastrointestinal Gastrointestinal: Denies abdominal pain, coffee ground emesis, constipation, diarrhea, dyspepsia, hematemesis, hematochezia, loose stools, melena, nausea, vomiting or other Genitourinary Genitourinary: Reports urinary incontinence; Denies burning urination, difficulty urinating, dysuria, hematuria, nocturia, urinary frequency, urinary hesitancy, urinary urgency or other Musculoskeletal Musculoskeletal: Denies arthralgias, back pain, joint pain, joint stiffness, joint swelling, myalgias, neck pain or other Neurologic Neurologic: Denies abnormal gait, abnormal speech, confusion, disequilibrium, dizziness, focal weakness, headache(s), numbness, paresthesias, seizure-like activity, seizures, syncope, tingling, tremor(s) or other Psychiatric Psychiatric: Denies anxiety, depression, homicidal ideation, suicidal ideation or other Endocrine Endocrinology: Denies change in body appearance, cold intolerance, excessive sweating, heat intolerance, polydipsia, polyuria or other Hematologic/Lymphatic Hematologic/Lymphatic: Denies anemia, easy bleeding, easy bruising, lymphadenopathy or other Allergic/Immunologic Allergic/Immunologic: Denies rhinitis, hives, eczemia, asthma or other Vital Signs Vital Signs Vital Signs: 11/07/24 17:51 11/07/24 18:35 11/07/24 18:37 Temperature 98 F Temperature Source Oral Pulse Rate 74 75 Respiratory Rate 16 18 Respiratory Effort Respiratory Depth Respiratory Pattern Blood Pressure 123/50 H Blood Pressure Mean 74 Pulse Ox 94 94 Oxygen Delivery Method Nasal Cannula Nasal Cannula Oxygen Flow Rate (L/min) 3 3 11/07/24 18:51 11/07/24 19:07 11/07/24 19:59 Temperature Temperature Source Pulse Rate 77 79 Respiratory Rate 20 H 16 Respiratory Effort Short of Breath Respiratory Depth Deep Respiratory Pattern Tachypnea Blood Pressure 129/59 H 124/52 H Blood Pressure Mean 82 76 Pulse Ox 93 93 Oxygen Delivery Method Nasal Cannula Nasal Cannula Nasal Cannula Oxygen Flow Rate (L/min) 3 3 3 11/07/24 21:00 11/07/24 22:00 11/07/24 22:00 Temperature 98.3 F Temperature Source Pulse Rate 77 75 75 Respiratory Rate 18 20 H 20 H Respiratory Effort Respiratory Depth Respiratory Pattern Blood Pressure 125/60 H 92/50 L 92/50 L Blood Pressure Mean 81 64 64 Pulse Ox 94 96 96 Oxygen Delivery Method Nasal Cannula Nasal Cannula Oxygen Flow Rate (L/min) 3 Physical Exam Const alert, oriented x3, no apparent distress, average body habitus, healthy appearing and well nourished Constitutional Narrative: Frail, elderly, white female, sitting up in bed, currently appears comfortable on 3 L nasal cannula, daughter at bedside, no signs of extremis General Appearance: cooperative HEENT normocephalic, head/scalp atraumatic, hearing grossly normal bilaterally and moist oral mucous membranes HEENT Narrative: Moderate hearing loss, Mallampati 2, no thrush, dentures in place Eyes EOMs intact bilaterally and conjunctivae normal Eyes Narrative: No scleral icterus Neck no lymphadenopathy and supple Neck Narrative: Trachea midline, no thyroid enlargement Resp no retractions, no use of accessory muscles and No clear to auscultation bilaterally Resp Narrative: Breath sounds coarse at bases with crackles right greater than left, diffusely diminished otherwise, few scattered end expiratory wheezes, mild tachypnea with no signs of respiratory distress or extremis Auscultation: crackles and wheezes; Negative for rhonchi Cardio regular rate, regular rhythm, S1 normal heart sound, S2 normal heart sound, no murmurs, no rub, no gallops and no clicks GI normal to inspection, nondistended, normoactive bowel sounds, soft to palpation and non-tender Extremity no clubbing, cyanosis or edema Extremity Narrative: 2+ pedal pulses, decreased lean muscle mass Skin no jaundice, no petechiae and no mottling Skin Narrative: Skin is thin and frail with few scattered ecchymosis Neuro oriented x3, moves all extremities and no focal motor deficits Speech: speech normal Psych affect normal Psych Narrative: Very pleasant, interacts appropriately Results Lab / Micro Data 11/07/24 18:35 11/07/24 18:35 Labs: Laboratory Results - last 24 hr 11/07/24 18:35: WBC 11.8 H, RBC 4.09 L, Hgb 10.7 L, Hct 33.2 L, MCV 81.2, MCH 26.2 L, MCHC 32.2, RDW Std Deviation 46.0 H, RDW Coeff of Christina 15.6 H, Plt Count 276, MPV 10.0, Immature Gran % (Auto) 1.100 H, Neut % (Auto) 78.8 H, Lymph % (Auto) 10.0 L, [place] % (Auto) 9.4, Eos % (Auto) 0.4, Baso % (Auto) 0.3, Absolute Neuts (auto) 9.3 H, Absolute Lymphs (auto) 1.18, Nucleated RBC % 0, Sodium 130 L, Potassium 3.8, Chloride 97 L, Carbon Dioxide 25.0, Anion Gap 8, BUN 20 H, Creatinine 1.05 H, Est GFR (MDRD) Af Amer 64, Est GFR (MDRD) Non-Af 52 L, BUN/Creatinine Ratio 19.0, Glucose 108 H, Calcium 8.4 L, Troponin I High Sens 9, B-Natriuretic Peptide 676.6 H Micro: Microbiology 11/07/24 18:35 Mucosa - Nose SARS-CoV-2, Influenza & RSV (PCR) - Final SARS-CoV-2 (COVID 19 PCR) Rhythm Strip Rhythm Strip: Sinus Rhythm Rate: 70 Ectopy: None Imaging Radiology Impression Chest X-Ray 11/07/24 18:40 IMPRESSION: Pulmonary findings appear worse. Electronically Signed: Emir Malik MD at 18:55 EST , Assessment & Plan Assessment/Plan (1) Acute exacerbation of chronic obstructive pulmonary disease: (2) COVID: (3) CHF (congestive heart failure): (4) Hypoxia: PLAN: Plan Shortness of breath with chronic hypoxic respiratory failure secondary to acute exacerbation of COPD from COVID-19 infection/acute on chronic HFpEF -Echocardiogram on 12/26/2023 showed EF of 70% with pulmonary systolic pressure of 55 mmHg and moderate pulmonary hypertension -Suspect this may be worse with her noncompliance of oxygen driving worsening heart failure -Will give Lasix 40 IV twice daily and hold her 40 daily for right now and monitor for response -Strict I's and O's and daily weights -Sodium and fluid restricted diet -Patient diagnosed with COVID-19 on 11/01/2024 so she is out of the window for remdesivir or Decadron at this time--> completed outpatient Paxlovid so this may be Paxlovid rebound -She really is not any more hypoxic and she is at baseline as she is supposed to be on 3 L nasal cannula -Will support her clinically with scheduled nebulizers, Solu-Medrol, and aggressive pulmonary toilet with I-S and Acapella -Mucinex 1200 twice daily -Patient will need ambulatory pulse ox prior to discharge and assistance from case management to ensure her oxygen tank is working -Check sputum culture and would have low threshold for initiation of antibiotics depending on clinical picture as she has had some alteration in her sputum Leukocytosis -Mild with minimal left shift -Sputum cultures ordered and pending -Hold off on antibiotics for now but would have low threshold to start depending on clinical picture Dysphagia -Patient has known esophageal dysphagia from sliding hiatal hernia -Consult speech therapy Chronic hypoxic respiratory failure secondary to COPD -Treatment as above -Hold home inhalers -Patient wears 3 L at baseline however question whether or not her oxygen tank is working at home currently -Case management consulted for assistance with [employer] CAD/essential hypertension/hyperlipidemia -Previous stenting of the left circumflex -Continue home statin -Continue home amlodipine -Continue home isosorbide mononitrate -Continue home losartan -Continue home metoprolol DM-2 -Hold home oral agents -SSI [id number] as ordered -Cardiac/carb controlled diet GERD -Continue home PPI Exocrine pancreatic insufficiency -Has duodenal diverticulum noted on the MRCP -Continue pancreatic enzymes -Follows with Dr. Green Depression Continue home mirtazapine DVT prophylaxis -Subcu Lovenox 30 daily CODE STATUS -Full code as verified at the time of admission Charges/Coding Visit Charges Inpatient E&M: 92184 Init Hosp L3
[2024-11-08] VITALS (13 sets, daily range): BP systolic 105–129; BP diastolic 35–46; PULSE 68–95; RESP 16–20; TEMP 35.7–37; O2SAT 94–99; BMI 25.5
[2024-11-08] MEDS: 0.9% Saline Lock 10 ML Syringe IV ×5 (06:27→22:47)
[2024-11-08] MEDS: Insulin Lispro 100 UNIT/ML INSULN.PEN SC ×4 (06:27→22:42)
[2024-11-08 06:41] LABS: Bedside Glucose 207 mg/dL (74-106)
[2024-11-08 07:14] LABS: Absolute Lymphocyte Count 0.57 X10^3/uL (0.83-4.51); Absolute Neutrophil Count 6.1 X10^3/uL (2.0-7.7); Hematocrit 31.6 % (37-47); Hemoglobin 10.5 g/dL (12.0-15.0); Lymphocyte # 0.57 X10^3/ul (0.83-4.51); Lymphocyte % 8.4 % (19-41); Mean Corp Hgb Conc 33.2 g/dL (32-36); Mean Corpuscular Hgb 26.6 pg (27.0-32.0); Mean Platelet Vol. 9.6 fl (6.2-12.0); Monocyte# 0.05 X10^3/uL; Monocyte% 0.7 % (0-10); NRBC Flagged by Analyzer 0 % (0-5); Neutrophil # 6.14 X10^3/uL (2.7-7.7); Neutrophil % 90.2 % (47-70); POSITIVE DIFFERENTIAL YES; Platelet Count 264 K/mm3 (150-450); RBC Distribution Width CV 15.4 % (11.6-14.6); RBC Distribution Width SD 44.8 fl (35.1-43.9); Red Blood Count 3.95 M/mm3 (4.2-5.4); White Blood Count 6.8 K/mm3 (4.4-11.0)
[2024-11-08] MEDS: Ipratropium/Albuterol Sulfate 3 ML AMPUL.NEB INHALATION ×4 (07:23→23:30)
[2024-11-08 07:53] LABS: ALB/GLOB Ratio 0.7 RATIO (0.9-2.4); AST(SGOT) 17 U/L (15-37); Alanine Aminotransfer ALT/SGPT 21 U/L (13-56); Albumin, Serum 2.5 g/dL (3.2-5.0); Alkaline Phosphatase 91 U/L (45-117); Anion Gap 10 (5-15); BUN 23 mg/dL (7-18); BUN/Creat Ratio 17.6 RATIO (10-20); Calcium,Total 8.5 mg/dL (8.5-10.1); Chloride 97 mmol/L (98-107); Creatinine, Serum 1.31 mg/dL (0.55-1.02); EST Glomerular Filtration Rate 41 mL/min (>60); Est Glom Filt Rate - Afr Amer 49 mL/min (>60); Estimated Creatinine Clearance 20.91 ml/min; Globulin 3.7 g/dL (2.2-4.2); Glucose 214 mg/dL (74-106); Magnesium 1.7 mg/dL (1.6-2.6); Phosphorus 3.7 mg/dL (2.5-4.9); Protein, Total 6.2 g/dL (6.4-8.2); Sodium Level 130 mmol/L (136-145)
--- NOTE | 2024-11-08 08:01 | PCM.PN.HOSP ---
Reason for Visit Reason for Visit: Diagnoses Heart failure, unspecified (11/07/24) Chronic obstructive pulmonary disease with (acute) exacerbation (11/07/24) Hypoxemia (11/07/24) COVID-19 (11/07/24) Subjective Subjective Patient is an 89-year-old lady who was diagnosed with COVID on 11/01/2024 treated with Paxlovid presented to the emergency department following completion of her treatment with progressive shortness of breath and hypoxia Objective Data Objective Data Vital Signs: Vital Signs Temp Pulse Resp BP Pulse Ox O2 Del Method O2 Flow Rate 97.8 F 68 20 H 129/46 H 94 Nasal Cannula 3 11/08/24 03:09 11/08/24 07:24 11/08/24 07:24 11/08/24 03:09 11/08/24 07:24 11/08/24 07:24 11/08/24 07:24 Oxygen Flow Rate (L/min) 3 Oxygen Delivery Method Nasal Cannula Weight: 53.7 kg Body Mass Index (BMI) 25.5 Intake & Output: Intake and Output for Last 24 Hours 11/06/24 11/07/24 11/08/24 23:59 23:59 23:59 Intake Total 120 / 120 Output Total 350 / 350 Balance -230 / -230 Lab / Micro Data 11/08/24 07:07 11/08/24 07:07 Labs: Laboratory Results - last 24 hr 11/07/24 18:35: WBC 11.8 H, RBC 4.09 L, Hgb 10.7 L, Hct 33.2 L, MCV 81.2, MCH 26.2 L, MCHC 32.2, RDW Std Deviation 46.0 H, RDW Coeff of Christina 15.6 H, Plt Count 276, MPV 10.0, Immature Gran % (Auto) 1.100 H, Neut % (Auto) 78.8 H, Lymph % (Auto) 10.0 L, [place] % (Auto) 9.4, Eos % (Auto) 0.4, Baso % (Auto) 0.3, Absolute Neuts (auto) 9.3 H, Absolute Lymphs (auto) 1.18, Nucleated RBC % 0, Sodium 130 L, Potassium 3.8, Chloride 97 L, Carbon Dioxide 25.0, Anion Gap 8, BUN 20 H, Creatinine 1.05 H, Est GFR (MDRD) Af Amer 64, Est GFR (MDRD) Non-Af 52 L, BUN/Creatinine Ratio 19.0, Glucose 108 H, Calcium 8.4 L, Troponin I High Sens 9, B-Natriuretic Peptide 676.6 H 11/08/24 06:24: POC Glucose 207 H 11/08/24 07:07: WBC 6.8, RBC 3.95 L, Hgb 10.5 L, Hct 31.6 L, MCV 80.0 L, MCH 26.6 L, MCHC 33.2, RDW Std Deviation 44.8 H, RDW Coeff of Christina 15.4 H, Plt Count 264, MPV 9.6, Immature Gran % (Auto) 0.700, Neut % (Auto) 90.2 H, Lymph % (Auto) 8.4 L, [place] % (Auto) 0.7, Eos % (Auto) 0.0, Baso % (Auto) 0.0, Absolute Neuts (auto) 6.1, Absolute Lymphs (auto) 0.57 L, Nucleated RBC % 0, Sodium 130 L, Potassium 4.0, Chloride 97 L, Carbon Dioxide 23.0, Anion Gap 10, BUN 23 H, Creatinine 1.31 H, Estim Creat Clear Calc 20.91, Est GFR (MDRD) Af Amer 49 L, Est GFR (MDRD) Non-Af 41 L, BUN/Creatinine Ratio 17.6, Glucose 214 H, Calcium 8.5, Phosphorus 3.7, Magnesium 1.7, Total Bilirubin 0.50, AST 17, ALT 21, Alkaline Phosphatase 91, Total Protein 6.2 L, Albumin 2.5 L, Globulin 3.7, Albumin/Globulin Ratio 0.7 L Micro: Microbiology 11/07/24 18:35 Mucosa - Nose SARS-CoV-2, Influenza & RSV (PCR) - Final SARS-CoV-2 (COVID 19 PCR) Radiography Diagnostic Testing: Radiology Impression Chest X-Ray 11/07/24 18:40 IMPRESSION: Pulmonary findings appear worse. Electronically Signed: Emir Malik MD at 18:55 EST Reading Location ID and State: [facility] / [place] , Service support , Rhythm Strip Rhythm Strip: Sinus Rhythm Rate: 70 Ectopy: None Physical Exam Narrative GENERAL: cooperative HEENT: Atraumatic; normocephalic EYES; Anicteric, Normal Conjunctiva NECK; supple, normal thyroid, RESPIRATORY: Diminished to auscultation CARDIOVASCULAR: Regular S1 S2, GI: soft, normoactive bowel sounds, : No Renal angle tenderness; EXTREMITIES: No edema, no clubbing, MUSCULOSKELETAL: no muscle wasting NEURO: Awake; no lateralizing signs. SKIN: No Rash PSYCH; Flat affect Assessment & Plan Assessment/Plan (1) Acute exacerbation of chronic obstructive pulmonary disease: (2) COVID: (3) CHF (congestive heart failure): (4) Hypoxia: PLAN: Plan Patient is an 89-year-old lady who was diagnosed with COVID on 11/01/2024 treated with Paxlovid presented to the emergency department following completion of her treatment with progressive shortness of breath and hypoxia 1. Acute on chronic hypoxic respiratory failure ? Due to combination of COPD exacerbation, recent COVID infection as well as acute on chronic congestive heart failure with preserved ejection fraction. Patient has been admitted to regular nursing floor started on supplemental oxygen titrated to keep saturation greater than 90 with treatment of the underlying clinical etiology 2. Recent COVID-19 infection ? Patient was treated with Paxlovid 3. COPD with acute exacerbation ? Patient started on bronchodilator treatment, systemic steroid as well as antibiotic therapy. Patient placed on oxygen titrated to keep saturation greater than 90. 4. Acute on chronic congestive heart failure with preserved ejection fraction ?-Echocardiogram on 12/26/2023 showed EF of 70% with pulmonary systolic pressure of 55 mmHg and moderate pulmonary hypertension. Patient started on daily weight, strict input and output, fluid restriction, low-sodium diet as well as Furosemide 5. Coronary artery disease ? With previous PCI involvement left circumflex lesion. Patient is on guideline directed medical therapy 6. Hypertension ? Blood pressure controlled, home medications continued with dose adjustment as needed 7. Dyslipidemia ?Patient is on statin therapy, continued at home dose 8. Diabetes mellitus type II -patient's oral hypoglycemics held. Placed on long acting insulin, Accu-Cheks a.c. and at bedtime and covered with sliding scale insulin 9. Pancreatic insufficiency ? Patient is a lipase- protease- amylase supplements 10. Dysphagia -Patient has known esophageal dysphagia from sliding hiatal hernia consult was placed to speech therapy on admission 11. GERD ? Patient is on PPI 12. DVT prophylaxis ? On enoxaparin Time spent in the patient's overall evaluation,decision-making process, review of diagnostic data, adjustment of management, discussion with other providers, nursing nursing and ancillary staff involved in patient's care documentation, 52 minutes Charges/Coding Visit Charges Inpatient E&M: 88922 [facility] Hosp L3
[2024-11-08] MEDS: Creon 24,000 unit DR Capsule PO ×3 (08:42→17:46)
[2024-11-08] MEDS: Calcium Carbonate 500 MG Tablet PO (08:43)
[2024-11-08] MEDS: Metoprolol Tartrate 100 MG Tablet PO ×2 (10:27→22:44)
[2024-11-08] MEDS: Lansoprazole 15 MG Capsule.DR 30 MG PO (10:28)
[2024-11-08] MEDS: Memantine Hydrochloride 10 MG Tablet PO ×2 (10:28→22:45)
[2024-11-08] MEDS: NYSTATIN 500,000 UNIT/5 ML UDC 500000 UNIT PO ×4 (10:29→22:46)
[2024-11-08] MEDS: Dicyclomine 10 MG Capsule PO ×4 (10:29→22:42)
[2024-11-08] MEDS: Furosemide 40 MG/4 ML Vial IV ×2 (10:29→17:46)
[2024-11-08] MEDS: guaiFENesin 1,200 MG Tablet 1200 MG PO ×2 (10:29→22:45)
[2024-11-08] MEDS: Isosorbide Mononitrate 30 MG Tablet PO (10:29)
[2024-11-08] MEDS: Enoxaparin 30 MG/0.3 ML Syringe SC (10:29)
[2024-11-08 11:57] LABS: Bedside Glucose 370 mg/dL (74-106)
--- NOTE | 2024-11-08 14:30 | CASEMGMT ---
ARAVIND ROBBINS chart review: Patient was admitted 10/12-10/14/24 for pneumonia. See ARAVIND ROBBINS assessment from 10/13/24. Patient discharged to home with [facility], increase in home oxygen through [employer], Palliative consult, and family support. Patient returned to [facility] ED for shortness of breath and was admitted for COPD and CHF exacerbation and Covid. Patient is requiring 3lpm continuously. ARAVIND ROBBINS in to discuss readmission and needs at discharge. Patient states she was taking her medications as prescribed and wearing her oxygen as ordered. Patient states [facility] has been following patient. Patient states she had followed up with her PCP as well. Patient wishes to discharge to home with resumption of HHC with [facility]. Will monitor for increase in home oxygen. Patient denies further needs or concerns at this time. Patient had no further questions. CM will continue to follow this patient and plan for a safe discharge.
[2024-11-08 17:13] LABS: Bedside Glucose 152 mg/dL (74-106)
[2024-11-08] MEDS: Atorvastatin Calcium 40 MG Tablet PO (22:43)
[2024-11-08] MEDS: Mirtazapine 15 MG Tablet PO (22:46)
[2024-11-08 23:11] LABS: Bedside Glucose 233 mg/dL (74-106)
[2024-11-09] VITALS (10 sets, daily range): BP systolic 89–121; BP diastolic 35–40; PULSE 81–98; RESP 18–24; TEMP 36.1–36.6; O2SAT 90–97; BMI 25.7
[2024-11-09] MEDS: Insulin Lispro 100 UNIT/ML INSULN.PEN SC ×4 (06:22→22:16)
[2024-11-09] MEDS: 0.9% Saline Lock 10 ML Syringe IV ×4 (06:23→22:16)
[2024-11-09 06:47] LABS: Bedside Glucose 185 mg/dL (74-106)
[2024-11-09] MEDS: Creon 24,000 unit DR Capsule PO ×3 (08:03→18:24)
[2024-11-09] MEDS: Calcium Carbonate 500 MG Tablet PO (08:04)
--- NOTE | 2024-11-09 08:55 | PCM.PN.HOSP ---
Reason for Visit Reason for Visit: Diagnoses Heart failure, unspecified (11/07/24) Chronic obstructive pulmonary disease with (acute) exacerbation (11/07/24) Hypoxemia (11/07/24) COVID-19 (11/07/24) Subjective Subjective Patient seen still complains of difficulty breathing. Currently on 3 L of oxygen at rest Objective Data Objective Data Vital Signs: Vital Signs Temp Pulse Resp BP Pulse Ox O2 Del Method O2 Flow Rate 96.9 F L 81 18 104/40 L 94 Nasal Cannula 3 11/09/24 08:00 11/09/24 08:00 11/09/24 08:00 11/09/24 08:00 11/09/24 08:00 11/09/24 08:21 11/09/24 08:21 Oxygen Flow Rate (L/min) 3 Oxygen Delivery Method Nasal Cannula Weight: 53.8 kg Body Mass Index (BMI) 25.7 Intake & Output: Intake and Output for Last 24 Hours 11/07/24 11/08/24 11/09/24 23:59 23:59 23:59 Intake Total 120 / 300 300 / 300 Output Total 350 / 350 0 / 0 Balance -230 / -50 300 / 300 Lab / Micro Data 11/08/24 07:07 11/08/24 07:07 Labs: Laboratory Results - last 24 hr 11/08/24 11:24: POC Glucose 370 H 11/08/24 16:50: POC Glucose 152 H 11/08/24 22:32: POC Glucose 233 H 11/09/24 06:18: POC Glucose 185 H Micro: Microbiology 11/07/24 18:35 Mucosa - Nose SARS-CoV-2, Influenza & RSV (PCR) - Final SARS-CoV-2 (COVID 19 PCR) Rhythm Strip Rhythm Strip: Sinus Rhythm Rate: 70 Ectopy: None Physical Exam Narrative GENERAL: cooperative HEENT: Atraumatic; normocephalic EYES; Anicteric, Normal Conjunctiva NECK; supple, normal thyroid, RESPIRATORY: Diminished to auscultation CARDIOVASCULAR: Regular S1 S2, GI: soft, normoactive bowel sounds, : No Renal angle tenderness; EXTREMITIES: No edema, no clubbing, MUSCULOSKELETAL: no muscle wasting NEURO: Awake; no lateralizing signs. SKIN: No Rash PSYCH; Flat affect Assessment & Plan Assessment/Plan (1) Acute exacerbation of chronic obstructive pulmonary disease: (2) COVID: (3) CHF (congestive heart failure): (4) Hypoxia: PLAN: Plan Patient is an 89-year-old lady who was diagnosed with COVID on 11/01/2024 treated with Paxlovid presented to the emergency department following completion of her treatment with progressive shortness of breath and hypoxia 1. Acute on chronic hypoxic respiratory failure ? Due to combination of COPD exacerbation, recent COVID infection as well as acute on chronic congestive heart failure with preserved ejection fraction. Patient has been admitted to regular nursing floor started on supplemental oxygen titrated to keep saturation greater than 90 with treatment of the underlying clinical etiology ? 11/09/2024;Patient seen still complains of difficulty breathing. Currently on 3 L of oxygen at rest 2. Recent COVID-19 infection ? Patient was treated with Paxlovid 3. COPD with acute exacerbation ? Patient started on bronchodilator treatment, systemic steroid as well as antibiotic therapy. Patient placed on oxygen titrated to keep saturation greater than 90. 4. Acute on chronic congestive heart failure with preserved ejection fraction ?-Echocardiogram on 12/26/2023 showed EF of 70% with pulmonary systolic pressure of 55 mmHg and moderate pulmonary hypertension. Patient started on daily weight, strict input and output, fluid restriction, low-sodium diet as well as Furosemide 5. Coronary artery disease ? With previous PCI involvement left circumflex lesion. Patient is on guideline directed medical therapy 6. Hypertension ? Blood pressure controlled, home medications continued with dose adjustment as needed 7. Dyslipidemia ?Patient is on statin therapy, continued at home dose 8. Diabetes mellitus type II -patient's oral hypoglycemics held. Placed on long acting insulin, Accu-Cheks a.c. and at bedtime and covered with sliding scale insulin 9. Pancreatic insufficiency ? Patient is a lipase- protease- amylase supplements 10. Dysphagia -Patient has known esophageal dysphagia from sliding hiatal hernia consult was placed to speech therapy on admission 11. GERD ? Patient is on PPI 12. DVT prophylaxis ? On enoxaparin Time spent in the patient's overall evaluation,decision-making process, review of diagnostic data, adjustment of management, discussion with other providers, nursing nursing and ancillary staff involved in patient's care documentation, 38 minutes Charges/Coding Visit Charges Inpatient E&M: 35447 Subs Hosp L2
[2024-11-09] MEDS: Isosorbide Mononitrate 30 MG Tablet PO (10:19)
[2024-11-09] MEDS: guaiFENesin 1,200 MG Tablet 1200 MG PO ×2 (10:20→22:12)
[2024-11-09] MEDS: Metoprolol Tartrate 100 MG Tablet PO ×2 (10:20→22:12)
[2024-11-09] MEDS: Lansoprazole 15 MG Capsule.DR 30 MG PO (10:20)
[2024-11-09] MEDS: Dicyclomine 10 MG Capsule PO ×4 (10:20→22:10)
[2024-11-09] MEDS: Enoxaparin 30 MG/0.3 ML Syringe SC (10:20)
[2024-11-09] MEDS: NYSTATIN 500,000 UNIT/5 ML UDC 500000 UNIT PO ×4 (10:21→22:14)
[2024-11-09] MEDS: Memantine Hydrochloride 10 MG Tablet PO ×2 (10:21→22:13)
[2024-11-09 10:41] LABS: ALB/GLOB Ratio 0.7 RATIO (0.9-2.4); AST(SGOT) 15 U/L (15-37); Alanine Aminotransfer ALT/SGPT 26 U/L (13-56); Albumin, Serum 2.6 g/dL (3.2-5.0); Alkaline Phosphatase 85 U/L (45-117); Anion Gap 8 (5-15); BUN 39 mg/dL (7-18); BUN/Creat Ratio 24.7 RATIO (10-20); Calcium,Total 8.6 mg/dL (8.5-10.1); Chloride 96 mmol/L (98-107); Creatinine, Serum 1.58 mg/dL (0.55-1.02); EST Glomerular Filtration Rate 33 mL/min (>60); Est Glom Filt Rate - Afr Amer 40 mL/min (>60); Estimated Creatinine Clearance 17.34 ml/min; Globulin 3.6 g/dL (2.2-4.2); Glucose 184 mg/dL (74-106); Magnesium 1.7 mg/dL (1.6-2.6); Phosphorus 3.8 mg/dL (2.5-4.9); Potassium 4.3 mmol/L (3.5-5.1); Protein, Total 6.2 g/dL (6.4-8.2); Sodium Level 130 mmol/L (136-145)
[2024-11-09] MEDS: Ipratropium/Albuterol Sulfate 3 ML AMPUL.NEB INHALATION ×3 (11:04→20:38)
[2024-11-09] MEDS: Furosemide 40 MG/4 ML Vial IV (11:50)
[2024-11-09 12:26] LABS: Bedside Glucose 319 mg/dL (74-106)
[2024-11-09 17:23] LABS: Bedside Glucose 226 mg/dL (74-106)
[2024-11-09] MEDS: Atorvastatin Calcium 40 MG Tablet PO (22:11)
[2024-11-09] MEDS: Mirtazapine 15 MG Tablet PO (22:23)
[2024-11-10] VITALS (12 sets, daily range): BP systolic 106–161; BP diastolic 39–66; PULSE 80–108; RESP 16–22; TEMP 35.9–36.7; O2SAT 94–96; BMI 25.7
[2024-11-10] MEDS: Ipratropium/Albuterol Sulfate 3 ML AMPUL.NEB INHALATION ×5 (00:15→20:54)
[2024-11-10 02:08] LABS: Bedside Glucose 203 mg/dL (74-106)
[2024-11-10] MEDS: 0.9% Saline Lock 10 ML Syringe IV ×2 (06:24→13:07)
[2024-11-10] MEDS: Insulin Lispro 100 UNIT/ML INSULN.PEN SC ×3 (06:27→17:00)
[2024-11-10 06:58] LABS: Bedside Glucose 197 mg/dL (74-106)
--- NOTE | 2024-11-10 08:00 | PN.HOSP_ITS ---
Reason for Visit Reason for Visit: Diagnoses Heart failure, unspecified (11/07/24) Chronic obstructive pulmonary disease with (acute) exacerbation (11/07/24) Hypoxemia (11/07/24) COVID-19 (11/07/24) Subjective Subjective Patient seen back to her baseline plan is for patient to be assessed for possible discharge Objective Data Objective Data Vital Signs: Vital Signs Temp Pulse Resp BP Pulse Ox O2 Del Method O2 Flow Rate 98 F 82 20 H 106/39 L 94 Nasal Cannula 3 11/10/24 03:00 11/10/24 07:06 11/10/24 07:06 11/10/24 03:00 11/10/24 07:06 11/10/24 07:06 11/10/24 07:06 Oxygen Flow Rate (L/min) 3 Oxygen Delivery Method Nasal Cannula Weight: 53.9 kg Body Mass Index (BMI) 25.7 Intake & Output: Intake and Output for Last 24 Hours 11/08/24 11/09/24 11/10/24 23:59 23:59 23:59 Intake Total 120 / 300 1070 / 1250 180 / 180 Output Total 350 / 350 0 / 0 Balance -230 / -50 1070 / 1250 180 / 180 Lab / Micro Data 11/10/24 08:07 11/10/24 08:07 Labs: Laboratory Results - last 24 hr 11/09/24 09:13: Sodium 130 L, Potassium 4.3, Chloride 96 L, Carbon Dioxide 26.0, Anion Gap 8, BUN 39 H, Creatinine 1.58 H, Estim Creat Clear Calc 17.34, Est GFR (MDRD) Af Amer 40 L, Est GFR (MDRD) Non-Af 33 L, BUN/Creatinine Ratio 24.7 H, G lucose 184 H, Calcium 8.6, Phosphorus 3.8, Magnesium 1.7, Total Bilirubin 0.30, AST 15, ALT 26, Alkaline Phosphatase 85, Total Protein 6.2 L, Albumin 2.6 L, Globulin 3.6, Albumin/Globulin Ratio 0.7 L 11/09/24 11:49: POC Glucose 319 H 11/09/24 17:00: POC Glucose 226 H 11/09/24 22:05: POC Glucose 203 H 11/10/24 06:20: POC Glucose 197 H Micro: Microbiology 11/09/24 08:02 Sputum, Expectorated/Coughed Gram Stain - Final 11/07/24 18:35 Mucosa - Nose SARS-CoV-2, Influenza & RSV (PCR) - Final SARS-CoV-2 (COVID 19 PCR) Rhythm Strip Rhythm Strip: Sinus Rhythm Rate: 70 Ectopy: None Physical Exam Narrative GENERAL: cooperative HEENT: Atraumatic; normocephalic EYES; Anicteric, Normal Conjunctiva NECK; supple, normal thyroid, RESPIRATORY: Diminished to auscultation CARDIOVASCULAR: Regular S1 S2, GI: soft, normoactive bowel sounds, : No Renal angle tenderness; EXTREMITIES: No edema, no clubbing, MUSCULOSKELETAL: no muscle wasting NEURO: Awake; no lateralizing signs. SKIN: No Rash PSYCH; Flat affect Const alert, oriented x3, no apparent distress, average body habitus, healthy appearing and well nourished Constitutional Narrative: Frail, elderly, white female, sitting up in bed, currently appears comfortable on 3 L nasal cannula, daughter at bedside, no signs of extremis General Appearance: cooperative HEENT normocephalic, head/scalp atraumatic, hearing grossly normal bilaterally and moist oral mucous membranes Eyes EOMs intact bilaterally and conjunctivae normal Eyes Narrative: No scleral icterus Neck no lymphadenopathy and supple Neck Narrative: Trachea midline, no thyroid enlargement Resp no retractions, no use of accessory muscles and No clear to auscultation bilaterally Resp Narrative: Breath sounds coarse at bases with crackles right greater than left, diffusely diminished otherwise, few scattered end expiratory wheezes, mild tachypnea with no signs of respiratory distress or extremis Auscultation: crackles and wheezes; Negative for rhonchi Cardio regular rate, regular rhythm, S1 normal heart sound, S2 normal heart sound, no murmurs, no rub, no gallops and no clicks GI normal to inspection, nondistended, normoactive bowel sounds, soft to palpation and non-tender Extremity no clubbing, cyanosis or edema Extremity Narrative: 2+ pedal pulses, decreased lean muscle mass Skin no jaundice, no petechiae and no mottling Skin Narrative: Skin is thin and frail with few scattered ecchymosis Neuro oriented x3, moves all extremities and no focal motor deficits Speech: speech normal Psych affect normal Psych Narrative: Very pleasant, interacts appropriately Assessment & Plan Assessment/Plan (1) Acute exacerbation of chronic obstructive pulmonary disease: (2) COVID: (3) CHF (congestive heart failure): (4) Hypoxia: PLAN: Plan Patient is an 89-year-old lady who was diagnosed with COVID on 11/01/2024 treated with Paxlovid presented to the emergency department following completion of her treatment with progressive shortness of breath and hypoxia 1. Acute on chronic hypoxic respiratory failure ? Due to combination of COPD exacerbation, recent COVID infection as well as acute on chronic congestive heart failure with preserved ejection fraction. Patient has been admitted to regular nursing floor started on supplemental oxygen titrated to keep saturation greater than 90 with treatment of the underlying clinical etiology ? 11/09/2024;Patient seen still complains of difficulty breathing. Currently on 3 L of oxygen at rest ? 11/10/2023; patient remains stable plans for patient to be discharged home with home health 2. Recent COVID-19 infection ? Patient was treated with Paxlovid 3. COPD with acute exacerbation ? Patient started on bronchodilator treatment, systemic steroid as well as antibiotic therapy. Patient placed on oxygen titrated to keep saturation greater than 90. 4. Acute on chronic congestive heart failure with preserved ejection fraction ?-Echocardiogram on 12/26/2023 showed EF of 70% with pulmonary systolic pressure of 55 mmHg and moderate pulmonary hypertension. Patient started on daily weight, strict input and output, fluid restriction, low-sodium diet as well as Furosemide 5. Coronary artery disease ? With previous PCI involvement left circumflex lesion. Patient is on guideline directed medical therapy 6. Hypertension ? Blood pressure controlled, home medications continued with dose adjustment as needed 7. Dyslipidemia ?Patient is on statin therapy, continued at home dose 8. Diabetes mellitus type II -patient's oral hypoglycemics held. Placed on long acting insulin, Accu-Cheks a.c. and at bedtime and covered with sliding scale insulin 9. Pancreatic insufficiency ? Patient is a lipase- protease- amylase supplements 10. Dysphagia -Patient has known esophageal dysphagia from sliding hiatal hernia consult was placed to speech therapy on admission 11. GERD ? Patient is on PPI 12. DVT prophylaxis ? On enoxaparin 13. Acute kidney injury Time spent in the patient's overall evaluation,decision-making process, review of diagnostic data, adjustment of management, discussion with other providers, nursing nursing and ancillary staff involved in patient's care documentation, 38 minutes
[2024-11-10 08:21] LABS: Absolute Lymphocyte Count 0.48 X10^3/uL (0.83-4.51); Absolute Neutrophil Count 12.9 X10^3/uL (2.0-7.7); Basophil# 0.01 X10^3/uL; Basophil% 0.1 % (0-1); Hematocrit 31.5 % (37-47); Hemoglobin 10.2 g/dL (12.0-15.0); Lymphocyte # 0.48 X10^3/ul (0.83-4.51); Lymphocyte % 3.4 % (19-41); Mean Corp Hgb Conc 32.4 g/dL (32-36); Mean Corpuscular Volume 80.2 fL (81-99); Mean Platelet Vol. 9.3 fl (6.2-12.0); Monocyte# 0.45 X10^3/uL; Monocyte% 3.2 % (0-10); NRBC Flagged by Analyzer 0 % (0-5); Neutrophil # 12.94 X10^3/uL (2.7-7.7); Neutrophil % 92.2 % (47-70); POSITIVE DIFFERENTIAL YES; Platelet Count 368 K/mm3 (150-450); RBC Distribution Width CV 15.5 % (11.6-14.6); RBC Distribution Width SD 44.9 fl (35.1-43.9); Red Blood Count 3.93 M/mm3 (4.2-5.4)
[2024-11-10 08:36] LABS: Anion Gap 9 (5-15); BUN 44 mg/dL (7-18); BUN/Creat Ratio 37.9 RATIO (10-20); Calcium,Total 8.6 mg/dL (8.5-10.1); Chloride 101 mmol/L (98-107); Creatinine, Serum 1.16 mg/dL (0.55-1.02); EST Glomerular Filtration Rate 47 mL/min (>60); Est Glom Filt Rate - Afr Amer 57 mL/min (>60); Estimated Creatinine Clearance 23.62 ml/min; Glucose 181 mg/dL (74-106); Potassium 3.8 mmol/L (3.5-5.1); Sodium Level 134 mmol/L (136-145)
[2024-11-10] MEDS: Enoxaparin 30 MG/0.3 ML Syringe SC (09:12)
[2024-11-10] MEDS: NYSTATIN 500,000 UNIT/5 ML UDC 500000 UNIT PO ×4 (09:12→22:31)
[2024-11-10] MEDS: guaiFENesin 1,200 MG Tablet 1200 MG PO ×2 (09:12→22:30)
[2024-11-10] MEDS: Creon 24,000 unit DR Capsule PO ×2 (09:12→11:41)
[2024-11-10] MEDS: Calcium Carbonate 500 MG Tablet PO (09:13)
[2024-11-10] MEDS: Metoprolol Tartrate 100 MG Tablet PO ×2 (09:13→22:30)
[2024-11-10] MEDS: amLODIPine 10 MG Tablet PO (09:13)
[2024-11-10] MEDS: Dicyclomine 10 MG Capsule PO ×4 (09:13→22:30)
[2024-11-10] MEDS: Isosorbide Mononitrate 30 MG Tablet PO (09:13)
[2024-11-10] MEDS: Memantine Hydrochloride 10 MG Tablet PO ×2 (09:13→22:30)
[2024-11-10] MEDS: Lansoprazole 15 MG Capsule.DR 30 MG PO (09:13)
--- NOTE | 2024-11-10 11:14 | PCM.DC.SUM ---
Providers Date of Admission: 11/07/24 Date of Discharge: 11/10/24 Primary Care Physician: Dr. Maria Antonia Salas MD Reason For Visit: ACUTE EXACERBATION OF COPD Diagnosis Discharge Diagnosis (1) Acute exacerbation of chronic obstructive pulmonary disease: Status: Chronic Code(s): J44.1 - Chronic obstructive pulmonary disease with (acute) exacerbation (2) COVID: Status: Acute Code(s): U07.1 - COVID-19 (3) CHF (congestive heart failure): Status: Acute Code(s): I50.9 - Heart failure, unspecified (4) Hypoxia: Status: Acute Code(s): R09.02 - Hypoxemia Plan Patient is an 89-year-old lady who was diagnosed with COVID on 11/01/2024 treated with Paxlovid presented to the emergency department following completion of her treatment with progressive shortness of breath and hypoxia 1. Acute on chronic hypoxic respiratory failure ? Due to combination of COPD exacerbation, recent COVID infection as well as acute on chronic congestive heart failure with preserved ejection fraction. Patient has been admitted to regular nursing floor started on supplemental oxygen titrated to keep saturation greater than 90 with treatment of the underlying clinical etiology ? 11/09/2024;Patient seen still complains of difficulty breathing. Currently on 3 L of oxygen at rest ? 11/10/2023; patient remains stable plans for patient to be discharged home with home health 2. Recent COVID-19 infection ? Patient was treated with Paxlovid 3. COPD with acute exacerbation ? Patient started on bronchodilator treatment, systemic steroid as well as antibiotic therapy. Patient placed on oxygen titrated to keep saturation greater than 90. 4. Acute on chronic congestive heart failure with preserved ejection fraction ?-Echocardiogram on 12/26/2023 showed EF of 70% with pulmonary systolic pressure of 55 mmHg and moderate pulmonary hypertension. Patient started on daily weight, strict input and output, fluid restriction, low-sodium diet as well as Furosemide 5. Coronary artery disease ? With previous PCI involvement left circumflex lesion. Patient is on guideline directed medical therapy 6. Hypertension ? Blood pressure controlled, home medications continued with dose adjustment as needed 7. Dyslipidemia ?Patient is on statin therapy, continued at home dose 8. Diabetes mellitus type II -patient's oral hypoglycemics held. Placed on long acting insulin, Accu-Cheks a.c. and at bedtime and covered with sliding scale insulin 9. Pancreatic insufficiency ? Patient is a lipase- protease- amylase supplements 10. Dysphagia -Patient has known esophageal dysphagia from sliding hiatal hernia consult was placed to speech therapy on admission 11. GERD ? Patient is on PPI 12. DVT prophylaxis ? On enoxaparin 13. Acute kidney injury Time spent in the patient's overall evaluation,decision-making process, review of diagnostic data, adjustment of management, discussion with other providers, nursing nursing and ancillary staff involved in patient's care documentation, 38 minutes Medications at Discharge Home Medications lansoprazole 30 mg capsule,delayed release (Prevacid) 30 mg PO DAILY ACID REFLUX 10/27/14 multivitamin with folic acid 400 mcg tablet 1 tab PO DAILY MULTIVITAMIN 10/27/14 nitroglycerin 0.4 mg sublingual tablet 0.4 mg sublingual Q5M PRN Chest Pain 10/27/14 vitamins A,C,T-tkke-dlcccx 4,296 mcg-226 mg-90 mg capsule 1 ea PO BID SUPPLEMENT 10/27/14 calcium carbonate 600 mg PO DAILY SUPPLEMENT 02/04/17 albuterol sulfate 90 mcg/actuation aerosol inhaler (Ventolin HFA) 2 puff inhalation Q6H PRN Wheezing 04/07/19 tiotropium bromide 2.5 mcg/actuation mist for inhalation (Spiriva Respimat) 2 puff inhalation DAILY breathing 04/07/19 metoprolol tartrate 50 mg tablet 100 mg PO BID blood pressure 04/08/19 atorvastatin 40 mg tablet 40 mg PO QHS cholesterol lowering 10/12/20 furosemide 20 mg tablet 40 mg PO DAILY water pill 10/12/20 glimepiride 1 mg tablet 2.5 mg PO DAILY blood sugar 10/12/20 isosorbide mononitrate 30 mg tablet,extended release 24 hr 30 mg PO DAILY heart 10/12/20 mometasone-formoterol HFA 200 mcg-5 mcg/actuation aerosol inhaler (Dulera) 1 puff IH BID breathing 10/12/20 losartan 25 mg tablet 25 mg PO DAILY 01/25/22 fluticasone propionate 50 mcg/actuation nasal spray,suspension (24 Hour Allergy Relief) 2 spray intranasal DAILY PRN ALLERGIES 12/25/23 nohndr-omqyoztd-klkaoya 24,000-76,000-120,000 unit capsule,delayed rel (Creon) See Rx Instructions PO .COMPLEX #320 caps 03/22/24 memantine 10 mg tablet 10 mg PO BID 03/24/24 mirtazapine 7.5 mg tablet 15 mg PO QHS 09/16/24 dicyclomine 10 mg capsule 10 mg PO 4X/DAY 10/12/24 nystatin 100,000 unit/mL oral suspension 500,000 unit (5 mL) PO 4X/DAY 5 days #100 mL 10/14/24 prednisone 20 mg tablet 40 mg (2 x 20 mg) PO BREAKFAST #4 tabs 10/14/24 amlodipine 10 mg tablet 10 mg PO DAILY 11/07/24 cefdinir 300 mg capsule 300 mg PO BID #10 caps 11/10/24 guaifenesin 1,200 mg tablet, extended release 12 hr (Mucinex) 1,200 mg PO BID #20 tabs 11/10/24 prednisone 20 mg tablet 20 mg PO BID #10 tabs 11/10/24 Physical Exam Narrative GENERAL: cooperative HEENT: Atraumatic; normocephalic EYES; Anicteric, Normal Conjunctiva NECK; supple, normal thyroid, RESPIRATORY: Diminished to auscultation CARDIOVASCULAR: Regular S1 S2, GI: soft, normoactive bowel sounds, : No Renal angle tenderness; EXTREMITIES: No edema, no clubbing, MUSCULOSKELETAL: no muscle wasting NEURO: Awake; no lateralizing signs. SKIN: No Rash PSYCH; Flat affect Weight / BMI Weight Weight: 53.9 kg Body Mass Index (BMI) 25.7 ABG / Lab / Microbiology Data 11/10/24 08:07 11/10/24 08:07 Laboratory: Laboratory Results - last 24 hr 11/09/24 11:49: POC Glucose 319 H 11/09/24 17:00: POC Glucose 226 H 11/09/24 22:05: POC Glucose 203 H 11/10/24 06:20: POC Glucose 197 H 11/10/24 08:07: WBC 14.0 H, RBC 3.93 L, Hgb 10.2 L, Hct 31.5 L, MCV 80.2 L, MCH 26.0 L, MCHC 32.4, RDW Std Deviation 44.9 H, RDW Coeff of Christina 15.5 H, Plt Count 368, MPV 9.3, Immature Gran % (Auto) 1.100 H, Neut % (Auto) 92.2 H, Lymph % (Auto) 3.4 L, [place] % (Auto) 3.2, Eos % (Auto) 0.0, Baso % (Auto) 0.1, Absolute Neuts (auto) 12.9 H, Absolute Lymphs (auto) 0.48 L, Nucleated RBC % 0, Sodium 134 L, Potassium 3.8, Chloride 101, Carbon Dioxide 24.0, Anion Gap 9, BUN 44 H, Creatinine 1.16 H, Estim Creat Clear Calc 23.62, Est GFR (MDRD) Af Amer 57 L, Est GFR (MDRD) Non-Af 47 L, BUN/Creatinine Ratio 37.9 H, Glucose 181 H, Calcium 8.6 Microbiology: Microbiology 11/09/24 08:02 Sputum, Expectorated/Coughed Gram Stain - Final 11/07/24 18:35 Mucosa - Nose SARS-CoV-2, Influenza & RSV (PCR) - Final SARS-CoV-2 (COVID 19 PCR) D/C Instructions Discharge Diet: No restrictions Discharge Activity: Return to Normal Activity Call your doctor if you observe: Fever of 101 or Higher, Shortness of breath, Fainting spells and Chest pain DC O2, CPAP, BIPAP Needs Home O2 Discharge instructions: No Meaningful Use Info Meaningful Use Meaningful Use Diagnoses (Choose all that apply): None applicable Ischemic Stroke Statin Dosing Therapy Reference: STATIN DOSE THERAPY REFERENCE: * Patients > 75 years receive moderate or high dose statin therapy. * Patients 75 years or YOUNGER should receive HIGH intensity statin dose unless contraindicated. You will be required to document reason for non-treatment if statin daily dose does not meet guidelines. HIGH DOSE STATIN THERAPY DAILY Atorvastatin > than or = to 40 mg Rosuvastatin > than or = to 20 mg Amlodipine + Atorvastatin > than or = to 2.5/40 mg Ezetimibe + Simvastatin 10/80 mg Simvastatin 80mg Discharge Plan Admission Admit Date/Time: 11/07/24 23:22 Attending Provider: Leonel Spence Primary Care Provider: Maria Antonia Salas Consulting Providers: Crystal Gagnon Discharge Orders/Prescriptions Prescriptions: New prednisone 20 mg tablet 20 mg PO BID Qty: 10 0RF cefdinir 300 mg capsule 300 mg PO BID Qty: 10 0RF guaifenesin [Mucinex] 1,200 mg tablet extended release 12hr 1,200 mg PO BID Qty: 20 0RF Continued Spiriva Respimat 2.5 mcg/actuation mist 2 puff INHALATION DAILY albuterol sulfate [Ventolin HFA] 90 mcg/actuation HFA aerosol inhaler 2 puff INHALATION Q6H PRN (Reason: Wheezing) metoprolol tartrate 50 mg tablet 100 mg PO BID Patient Comments: 100 mg twice a day short acting losartan 25 mg tablet 25 mg PO DAILY memantine 10 mg tablet 10 mg PO BID mirtazapine 7.5 mg tablet 15 mg PO QHS lansoprazole [Prevacid] 30 MG capsule 30 mg PO DAILY nitroglycerin 0.4 MG tablet 0.4 mg sublingual Q5M PRN (Reason: Chest Pain) vitamins A,C,C-heog-qiefgn 1 EACH capsule 1 ea PO BID multivitamin with folic acid 1 TABLET tablet 1 tab PO DAILY calcium carbonate 600 MG tablet 600 mg PO DAILY atorvastatin 40 MG tablet 40 mg PO QHS glimepiride 1 MG tablet 2.5 mg PO DAILY Dulera 13 GM HFA aerosol inhaler 1 puff IH BID isosorbide mononitrate 30 MG tablet extended release 24 hr 30 mg PO DAILY furosemide 20 MG tablet 40 mg PO DAILY dicyclomine 10 mg capsule 10 mg PO 4X/DAY nystatin 100,000 unit/mL Suspension 500,000 unit PO 4X/DAY 5 Days Qty: 100 0RF prednisone 20 mg Tablet 40 mg PO BREAKFAST Qty: 4 0RF fluticasone propionate [24 Hour Allergy Relief] 50 mcg/actuation spray,suspension 2 spray intranasal DAILY PRN (Reason: ALLERGIES) Rx Instructions: administer into each nostril amlodipine 10 mg tablet 10 mg PO DAILY Creon 24,000-76,000 -120,000 unit capsule,delayed release(DR/EC) See Rx Instructions PO .COMPLEX Qty: 320 5RF Rx Instructions: Take 2-3 capsules with meals and 1-2 with snacks Referrals / Follow Up: Maria Antonia Salas MD [Primary Care Provider] - Within 2 Weeks Disposition Disposition (needs filled in before D/C Order can be placed): Home Health Service Charges/Coding Visit Charges Inpatient E&M: 77593 Disch Hosp >30min
[2024-11-10 12:06] LABS: Bedside Glucose 224 mg/dL (74-106)
[2024-11-10] MEDS: levoFLOXacin 750 MG Tablet PO (13:07)
--- NOTE | 2024-11-10 15:01 | CHAPLAIN ---
Type of Pastoral Visit _x__ Initial Visit ___ Follow-up Visit ___ On-call Visit ___ General Patient Visit ___ Spiritual Assessment ___ Family Conference ___ Bereavement ___ Rapid Response ___ Code Blue _x__ Other (describe below) Pastoral Care Referral From _x__ Patient _x__ Family ___ Nurse ___ Physician ___ [employer] ___ [employer] Attendant ___ Other (describe below) Sacrament/Intervention _x__ Active listening ___ Anointing ___ Episcopal ___ Bereavement ___ Communion ___ Shari exploration ___ ___ Life review _x__ Prayer ___ Reconciliation ___ Sacrament of Sick ___ Supportive presence ___ Wedding _x__ Other (describe below) Pastoral Comments phone call made into this isolation room; patient answers the phone and is able to have a conversation; pt states that she just hopes to get better; pt lives with her daughter; pt admits that she has not been well but is thankful for the concern and the phone call; pt welcomes a prayer over the phone
[2024-11-10 17:29] LABS: Bedside Glucose 268 mg/dL (74-106)
[2024-11-10] MEDS: Atorvastatin Calcium 40 MG Tablet PO (22:30)
[2024-11-10] MEDS: Mirtazapine 15 MG Tablet PO (22:30)
[2024-11-11] VITALS (9 sets, daily range): BP systolic 116–136; BP diastolic 40–43; PULSE 78–96; RESP 16–20; TEMP 36.7; O2SAT 93–99; BMI 26.0; BMI 25.7
[2024-11-11 00:09] LABS: Bedside Glucose 145 mg/dL (74-106)
[2024-11-11] MEDS: Insulin Lispro 100 UNIT/ML INSULN.PEN SC ×2 (07:02→11:05)
[2024-11-11 07:26] LABS: Bedside Glucose 162 mg/dL (74-106)
[2024-11-11 08:03] LABS: Absolute Lymphocyte Count 0.61 X10^3/uL (0.83-4.51); Absolute Neutrophil Count 12.4 X10^3/uL (2.0-7.7); Basophil# 0.03 X10^3/uL; Basophil% 0.2 % (0-1); Hematocrit 33.3 % (37-47); Hemoglobin 10.8 g/dL (12.0-15.0); Lymphocyte # 0.61 X10^3/ul (0.83-4.51); Lymphocyte % 4.4 % (19-41); Mean Corp Hgb Conc 32.4 g/dL (32-36); Mean Corpuscular Hgb 26.7 pg (27.0-32.0); Mean Corpuscular Volume 82.2 fL (81-99); Mean Platelet Vol. 9.7 fl (6.2-12.0); Monocyte# 0.54 X10^3/uL; Monocyte% 3.9 % (0-10); NRBC Flagged by Analyzer 0 % (0-5); Neutrophil # 12.37 X10^3/uL (2.7-7.7); Neutrophil % 89.5 % (47-70); Platelet Count 380 K/mm3 (150-450); RBC Distribution Width CV 15.8 % (11.6-14.6); RBC Distribution Width SD 46.8 fl (35.1-43.9); Red Blood Count 4.05 M/mm3 (4.2-5.4); White Blood Count 13.8 K/mm3 (4.4-11.0)
[2024-11-11] MEDS: Ipratropium/Albuterol Sulfate 3 ML AMPUL.NEB INHALATION ×3 (08:07→15:15)
[2024-11-11 08:25] LABS: Anion Gap 6 (5-15); BUN 38 mg/dL (7-18); BUN/Creat Ratio 32.2 RATIO (10-20); Calcium,Total 8.9 mg/dL (8.5-10.1); Chloride 102 mmol/L (98-107); Creatinine, Serum 1.18 mg/dL (0.55-1.02); EST Glomerular Filtration Rate 46 mL/min (>60); Est Glom Filt Rate - Afr Amer 56 mL/min (>60); Estimated Creatinine Clearance 23.22 ml/min; Glucose 171 mg/dL (74-106); Potassium 4.4 mmol/L (3.5-5.1); Sodium Level 135 mmol/L (136-145)
[2024-11-11] MEDS: Creon 24,000 unit DR Capsule PO ×2 (10:54→12:13)
[2024-11-11] MEDS: Metoprolol Tartrate 100 MG Tablet PO (10:55)
[2024-11-11] MEDS: Isosorbide Mononitrate 30 MG Tablet PO (10:55)
[2024-11-11] MEDS: amLODIPine 10 MG Tablet PO (10:55)
[2024-11-11] MEDS: Lansoprazole 15 MG Capsule.DR 30 MG PO (10:55)
[2024-11-11] MEDS: Memantine Hydrochloride 10 MG Tablet PO (10:55)
[2024-11-11] MEDS: Dicyclomine 10 MG Capsule PO ×2 (10:55→14:50)
[2024-11-11] MEDS: Calcium Carbonate 500 MG Tablet PO (10:55)
[2024-11-11] MEDS: NYSTATIN 500,000 UNIT/5 ML UDC 500000 UNIT PO ×2 (10:56→14:50)
[2024-11-11] MEDS: Enoxaparin 30 MG/0.3 ML Syringe SC (10:56)
[2024-11-11] MEDS: guaiFENesin 1,200 MG Tablet 1200 MG PO (10:56)
--- NOTE | 2024-11-11 11:36 | PN.HOSP_ITS ---
Reason for Visit Reason for Visit: Diagnoses Heart failure, unspecified (11/07/24) Chronic obstructive pulmonary disease with (acute) exacerbation (11/07/24) Hypoxemia (11/07/24) COVID-19 (11/07/24) Subjective Subjective Decision to discharge patient home the day prior was placed on hold after sputum cultures came back positive for Pseudomonas. Patient was subsequently started on Levaquin awaiting final sensitivities prior to discharge. Objective Data Objective Data Vital Signs: Vital Signs Temp Pulse Resp BP Pulse Ox O2 Del Method O2 Flow Rate 98.0 F 84 18 136/40 H 99 Nasal Cannula 3 11/11/24 10:15 11/11/24 10:55 11/11/24 10:15 11/11/24 10:55 11/11/24 10:15 11/11/24 10:50 11/11/24 10:50 Oxygen Flow Rate (L/min) 3 Oxygen Delivery Method Nasal Cannula Weight: 54.023 kg Body Mass Index (BMI) 25.7 Intake & Output: Intake and Output for Last 24 Hours 11/09/24 11/10/24 11/11/24 23:59 23:59 23:59 Intake Total 1070 / 1250 660 / 660 480 / 480 Output Total 0 / 0 Balance 1070 / 1250 660 / 660 480 / 480 Lab / Micro Data 11/11/24 07:15 11/11/24 07:15 Labs: Laboratory Results - last 24 hr 11/10/24 11:40: POC Glucose 224 H 11/10/24 16:58: POC Glucose 268 H 11/10/24 22:29: POC Glucose 145 H 11/11/24 07:01: POC Glucose 162 H 11/11/24 07:15: WBC 13.8 H, RBC 4.05 L, Hgb 10.8 L, Hct 33.3 L, MCV 82.2, MCH 26.7 L, MCHC 32.4, RDW Std Deviation 46.8 H, RDW Coeff of Christina 15.8 H, Plt Count 380, MPV 9.7, Immature Gran % (Auto) 2.000 H, Neut % (Auto) 89.5 H, Lymph % (Auto) 4.4 L, [place] % (Auto) 3.9, Eos % (Auto) 0.0, Baso % (Auto) 0.2, Absolute Neuts (auto) 12.4 H, Absolute Lymphs (auto) 0.61 L, Nucleated RBC % 0, Sodium 135 L, Potassium 4.4, Chloride 102, Carbon Dioxide 27.0, Anion Gap 6, BUN 38 H, Creatinine 1.18 H, Estim Creat Clear Calc 23.22, Est GFR (MDRD) Af Amer 56 L, E st GFR (MDRD) Non-Af 46 L, BUN/Creatinine Ratio 32.2 H, Glucose 171 H, Calcium 8.9 Micro: Microbiology 11/09/24 08:02 Sputum, Expectorated/Coughed Gram Stain - Final 11/09/24 08:02 Sputum, Expectorated/Coughed Respiratory Culture - Preliminary GNR Poss Pseudomonas sp 11/07/24 18:35 Mucosa - Nose SARS-CoV-2, Influenza & RSV (PCR) - Final SARS-CoV-2 (COVID 19 PCR) Rhythm Strip Rhythm Strip: Sinus Rhythm Rate: 70 Ectopy: None Physical Exam Narrative GENERAL: cooperative HEENT: Atraumatic; normocephalic EYES; Anicteric, Normal Conjunctiva NECK; supple, normal thyroid, RESPIRATORY: Diminished to auscultation CARDIOVASCULAR: Regular S1 S2, GI: soft, normoactive bowel sounds, : No Renal angle tenderness; EXTREMITIES: No edema, no clubbing, MUSCULOSKELETAL: no muscle wasting NEURO: Awake; no lateralizing signs. SKIN: No Rash PSYCH; Flat affect Assessment & Plan Assessment/Plan (1) Acute exacerbation of chronic obstructive pulmonary disease: (2) COVID: (3) CHF (congestive heart failure): (4) Hypoxia: PLAN: Plan Patient is an 89-year-old lady who was diagnosed with COVID on 11/01/2024 treated with Paxlovid presented to the emergency department following completion of her treatment with progressive shortness of breath and hypoxia 1. Acute on chronic hypoxic respiratory failure ? Due to combination of COPD exacerbation, recent COVID infection as well as acute on chronic congestive heart failure with preserved ejection fraction. Patient has been admitted to regular nursing floor started on supplemental oxygen titrated to keep saturation greater than 90 with treatment of the underlying clinical etiology ? 11/09/2024;Patient seen still complains of difficulty breathing. Currently on 3 L of oxygen at rest ? 11/10/2023; patient remains stable plans for patient to be discharged home with home health 2. Recent COVID-19 infection ? Patient was treated with Paxlovid 3. COPD with acute exacerbation ? Patient started on bronchodilator treatment, systemic steroid as well as antibiotic therapy. Patient placed on oxygen titrated to keep saturation greater than 90. 4. Superimposed pneumonia with Pseudomonas ? Patient was started on Levaquin pending final cultures and sensitivity 5. Acute on chronic congestive heart failure with preserved ejection fraction ?-Echocardiogram on 12/26/2023 showed EF of 70% with pulmonary systolic pressure of 55 mmHg and moderate pulmonary hypertension. Patient started on daily weight, strict input and output, fluid restriction, low-sodium diet as well as Furosemide 6. Coronary artery disease ? With previous PCI involvement left circumflex lesion. Patient is on guideline directed medical therapy 7. Hypertension ? Blood pressure controlled, home medications continued with dose adjustment as needed 8. Diabetes mellitus type II -patient's oral hypoglycemics held. Placed on long acting insulin, Accu-Cheks a.c. and at bedtime and covered with sliding scale insulin 9. Pancreatic insufficiency ? Patient is a lipase- protease- amylase supplements 10. Dysphagia -Patient has known esophageal dysphagia from sliding hiatal hernia consult was placed to speech therapy on admission 11. GERD ? Patient is on PPI 12. Dyslipidemia ?Patient is on statin therapy, continued at home dose 13. Acute kidney injury ? Patient creatinine peaked at 1.58 has since improved we will continue with monitoring Time spent in the patient's overall evaluation,decision-making process, review of diagnostic data, adjustment of management, discussion with other providers, nursing nursing and ancillary staff involved in patient's care documentation, 38 minutes Charges/Coding Visit Charges Inpatient E&M: 84692 Subs Hosp L2
[2024-11-11 11:39] LABS: Bedside Glucose 266 mg/dL (74-106)
[2024-11-11] MEDS: 0.9% Saline Lock 10 ML Syringe IV (14:50)
--- NOTE | 2024-11-11 15:38 | CASEMGMT ---
Patient has order for discharge. ARAVIND ROBBINS called and updated [facility] of discharge, resumption of care planned for tomorrow. Patient does not require increase in home oxygen at discharge. ARAVIND ROBBINS in to discuss needs at discharge with patient and daughter. ARAVIND ROBBINS updated daughter and patient that HHC will be out tomorrow. Daughter does not have tank for at discharge. Patient is only requiring oxygen with ambulation. Daughter states they will get tank from house for patient to walk from car at home. Patient and daughter had no further questions or concern. ARAVIND ROBBINS updated discharge plan
== END 2024-11-11 16:40 | disposition home health service (06) | DRG 177 ==
LOC: ED 22:24 → PCU 22:50
PROVIDERS: Admitting Provider Internal Medicine; Emergency Provider Emergency Medicine; PCP Internal Medicine; Visit Provider Internal Medicine
DX: U07.1 COVID-19 (principal); J96.21 Acute and chronic respiratory failure with hypoxia; J15.1 Pneumonia due to Pseudomonas; I50.33 Acute on chronic diastolic (congestive) heart failure; J44.1 Chronic obstructive pulmonary disease with (acute) exacerbation; I13.0 Hypertensive heart and chronic kidney disease with heart failure and stage 1 through stage 4 chronic kidney disease, or unspecified chronic kidney disease; N17.9 Acute kidney failure, unspecified; J44.0 Chronic obstructive pulmonary disease with (acute) lower respiratory infection; K86.81 Exocrine pancreatic insufficiency; E11.51 Type 2 diabetes mellitus with diabetic peripheral angiopathy without gangrene; N18.30 Chronic kidney disease, stage 3 unspecified; F32.A Depression, unspecified; E11.22 Type 2 diabetes mellitus with diabetic chronic kidney disease; I25.5 Ischemic cardiomyopathy; K21.9 Gastro-esophageal reflux disease without esophagitis; E78.2 Mixed hyperlipidemia; I25.10 Atherosclerotic heart disease of native coronary artery without angina pectoris; K44.9 Diaphragmatic hernia without obstruction or gangrene; R13.19 Other dysphagia; Z95.5 Presence of coronary angioplasty implant and graft; Z91.198 Patient's noncompliance with other medical treatment and regimen for other reason; Z99.81 Dependence on supplemental oxygen; Z79.51 Long term (current) use of inhaled steroids; Z79.52 Long term (current) use of systemic steroids; Z79.84 Long term (current) use of oral hypoglycemic drugs; Z79.899 Other long term (current) drug therapy; Z87.01 Personal history of pneumonia (recurrent); Z87.891 Personal history of nicotine dependence
CPT/HCPCS: 36415; 71046; 80048; 80053; 82962; 83735; 83880; 84100; 84484; 85025; 87070; 87077; 87184; 87186; 87205; 87631; 92526; 92610; 93005; 94640; 97110; 97116; 97162; 97166; 97530; 97535; 99252; 99285; A4216; G0463; J1940

== ENCOUNTER → 2024-12-28 | Outpatient (CLI) | payer MEDICARE, SELFPAY ==
--- NOTE | 2024-12-28 11:30 | RAD_ITS ---
PROCEDURE: CHEST PA AND LATERAL REASON FOR EXAM: Cough TECHNIQUE: Frontal and lateral views of the chest. COMPARISON: 11/07/2024. FINDINGS: Heart size is mildly enlarged. There are atherosclerotic calcifications of the thoracic aorta. There are chronic-appearing changes of both lungs. The bones are unremarkable. RAD/Chest PA and Lateral IMPRESSION: 1. Cardiomegaly with no acute cardiopulmonary disease. 2. Bibasilar scarring and chronic changes.. Reading Location: [place]
== END | disposition home or self-care (01) ==
LOC: RAD 10:57
PROVIDERS: PCP Internal Medicine; Referring Provider Internal Medicine Gastroenterology; Visit Provider Internal Medicine Gastroenterology
DX: R05.9 Cough, unspecified (principal)
CPT/HCPCS: 71046

== ENCOUNTER 2025-01-10 13:47 | Emergency (ER) | payer MEDICARE, SELFPAY ==
[2025-01-10 13:48] VITALS: BP 141/72; PULSE 79; RESP 18; TEMP 36.3; O2SAT 93
[2025-01-10 14:30] VITALS: BMI 26.2
--- NOTE | 2025-01-10 14:43 | CT_ITS ---
PROCEDURE: SPINE CERVICAL WITHOUT CONTRAS REASON FOR EXAM: History of fall. TECHNIQUE: Cervical spine CT without contrast. COMPARISON: None. FINDINGS: Alignment: Normal Vertebrae: No acute fracture Soft Tissues: Atherosclerotic plaque formation of the carotid bifurcations bilaterally worse on the left side. C1-2: Degenerative changes of the atlantoaxial joint. C2-3: Moderate degree of disc space narrowing. Facet joint osteoarthritis. No significant stenosis is seen. C3-4: Moderate degree of disc space narrowing. Facet joint osteoarthritis and hypertrophy worse on the left side. Uncovertebral arthrosis. Mild left neural foraminal stenosis. C4-5: Mild degree of disc space narrowing. No significant abnormality is seen. C5-6: Marked degree of disc space narrowing. Spondylosis. Uncovertebral arthrosis. Bilateral neural foraminal stenosis. C6-7: Marked degree of disc space narrowing. No fracture is seen. C7-T1: Unremarkable CT/Spine Cervical without Contras IMPRESSION: DEGENERATIVE CHANGES OF THE CERVICAL SPINE. NO EVIDENCE OF SIGNIFICANT OSSEOUS CENTRAL CANAL OR NEURAL FORAMINAL STENOSIS. One or more dose reduction techniques were used (e.g., Automated exposure contr ol, adjustment of the mA and/or kV according to patient size, use of iterative reconstruction technique). Reading Location: [place] [id number]
--- NOTE | 2025-01-10 14:43 | CT_ITS ---
PROCEDURE: SINUS/FACIAL BONE REASON FOR EXAM: Facial injury due to a fall. TECHNIQUE: CT of the paranasal sinuses without contrast. COMPARISON: None. FINDINGS: Frontal: Frontal sinuses and frontoethmoidal recesses appear clear. Ethmoid: Ethmoid air cells appear clear. Sphenoid: Sphenoid sinuses and sphenoethmoidal recesses appear clear. Maxillary: Minimal mucosal thickening along the inferior anterior medial aspect of the right maxillary sinus. Turbinates: Unremarkable. Nasal Septum: Midline. No large nasal septal spur. Mastoids/Middle Ears: Clear at visualized levels. Visualized intracranial structures are unremarkable. Scalp hematoma overlying the right frontal bone. CT/Sinus/Facial Bone IMPRESSION: Scalp hematoma overlying the right frontal bone. One or more dose reduction techniques were used (e.g., Automated exposure contr ol, adjustment of the mA and/or kV according to patient size, use of iterative reconstruction technique). Reading Location: [place] [id number]
--- NOTE | 2025-01-10 14:43 | CT_ITS ---
EXAM: BRAIN/HEAD WITHOUT CONTRAST CLINICAL HISTORY: Head injury due to a fall. COMPARISON: Comparison is made with prior examination dated December 13, 2020. TECHNIQUE: Multiple axial tomographic images were obtained without intravenous contrast administration. Coronal sagittal reconstruction were obtained as well. FINDINGS: There is evidence of scalp hematoma overlying the right frontal bone. Mild degree of cerebral atrophy. There is evidence of decreased attenuation deep in the white matter of both hemispheres in the periventricular distribution in keeping with a chronic small-vessel disease. There is evidence of calcifications within the basal ganglia. This is a normal variant in a patient of this age. Atherosclerotic calcification of the cavernous portions of the internal carotid arteries bilaterally. The sinuses are clear. CT/Brain/Head without Contrast IMPRESSION: Cerebral atrophy. Scalp hematoma overlying the right frontal bone. Reading Location: [facility]
--- NOTE | 2025-01-10 14:44 | EDS_ITS ---
HPI <LESTER Dennis - Last Filed: 01/10/25 15:46> HPI - Fall History of Present Illness Chief Complaint: Head Injury Narrative Narrative: 89-year-old female was brought in by her daughter after a mechanical fall. Patient has dementia and uses walker and tripped over the vacuum cord on the floor. Daughter heard her fall and went into the room immediately and there was no loss of consciousness. She has a large hematoma to her forehead. She is not on blood thinners. Daughter states she is acting her normal self. No vomiting. Denies other injuries. [facility] <LESTER Dennis - Last Filed: 01/10/25 15:46> [facility] Medical History Anxiety Depression Osteoporosis Rheumatoid arthritis Kidney disease Pancreatitis On home oxygen therapy COPD (chronic obstructive pulmonary disease) Dementia Wears glasses Wears dentures Diabetes Gastric reflux Chronic pancreatitis Sleep apnea Former smoker Cardiology follow-up encounter History of edema History of atrial fibrillation History of CHF (congestive heart failure) LUQ abdominal pain Leukocytosis Abdominal pain Anemia of chronic renal failure, stage 3 (moderate) Lower leg edema Osteopenia Vitamin D deficiency Esophageal reflux disease Pulmonary hypertension Carotid artery disease PVD (peripheral vascular disease) Ischemic cardiomyopathy PAD (peripheral artery disease) CKD (chronic kidney disease) Type 2 diabetes mellitus Macular degeneration EKATERINA (obstructive sleep apnea) Presence of stent in coronary artery Essential hypertension Atherosclerotic heart disease of [place] coronary artery without angina pectoris Mixed hyperlipidemia Pneumonia Hypoxia Syncope Dyslipidemia CAD (coronary artery disease) COPD (chronic obstructive pulmonary disease) Home Medications ?Medication ?Instructions ?Recorded ?Last Taken ?Type lansoprazole 30 mg capsule,delayed 30 mg PO DAILY ACID REFLUX 10/27/14 12/25/23 History release (Prevacid) multivitamin with folic acid 400 1 tab PO DAILY MULTIV ITAMIN 10/27/14 12/25/23 History mcg tablet nitroglycerin 0.4 mg sublingual 0.4 mg sublingual Q5M PRN Chest 10/27/14 12/25/23 History tablet Pain vitamins A,C,F-nczp-fyccul 4,296 1 ea PO BID SUPPLEMEN T 10/27/14 12/25/23 History mcg-226 mg-90 mg capsule calcium carbonate 600 mg PO DAILY SUPPLEMENT 0 02/04/17 12/25/23 History albuterol sulfate 90 mcg/actuation 2 puff inhalation Q 6H PRN Wheezing 04/07/19 12/25/23 History aerosol inhaler (Ventolin HFA) tiotropium bromide 2.5 2 puff inhalation DAILY ludy thing 04/07/19 12/25/23 History mcg/actuation mist for inhalation (Spiriva Respimat) metoprolol tartrate 50 mg tablet 100 mg PO BID blood p ressure 04/08/19 12/25/23 History atorvastatin 40 mg tablet 40 mg PO QHS cholesterol low ering 10/12/20 12/24/23 History furosemide 20 mg tablet 40 mg PO DAILY water pill 12/25/23 History glimepiride 1 mg tablet 2.5 mg PO DAILY blood sugar 10/12/20 12/25/23 History isosorbide mononitrate 30 mg 30 mg PO DAILY heart 10/0312/25/23 History tablet,extended release 24 hr mometasone-formoterol HFA 200 1 puff IH BID breathing 10/12/20 12/25/23 History mcg-5 mcg/actuation aerosol inhaler (Dulera) losartan 25 mg tablet 25 mg PO DAILY 01/25/2212/05 History fluticasone propionate 50 2 spray intranasal DAILY PRN 12/25/23 12/25/23 History mcg/actuation nasal ALLERGIES spray,suspension (24 Hour Allergy Relief) [id number] See Rx Instructions PO .COMP SADIE 03/22/24 Unknown Rx 24,000-76,000-120,000 unit #320 caps capsule,delayed rel (Creon) memantine 10 mg tablet 10 mg PO BID 03/24/24 Unknow n History mirtazapine 7.5 mg tablet 15 mg PO QHS 09/16/24 Unknow n History dicyclomine 10 mg capsule 10 mg PO 4X/DAY 10/12/24 Unk nown History nystatin 100,000 unit/mL oral 500,000 unit (5 mL) PO 4 X/DAY 5 10/14/24 Unknown Rx suspension days #100 mL prednisone 20 mg tablet 40 mg (2 x 20 mg) PO BREAKFA ST #4 10/14/24 Unknown Rx tabs amlodipine 10 mg tablet 10 mg PO DAILY 11/07/24 Unkn own History guaifenesin 1,200 mg tablet, 1,200 mg PO BID #20 tabs 11/10/24 Unknown Rx extended release 12 hr (Mucinex) prednisone 20 mg tablet 20 mg PO BID #10 tabs Unknown Rx levofloxacin 750 mg tablet 750 mg PO Q48@0600 #3 tabs 11/11/24 Unknown Rx Allergy/AdvReac Type Severity Reaction Status Date / Time acetaminophen (From Tylenol) Allergy Hives Verified 01/10/25 13:48 iodine Allergy Hives Verified 01/10/25 13:48 nabumetone Allergy Unknown Verified 01/10/25 13:48 pregabalin (From Lyrica) Allergy Unknown Verified 01/10/25 13:48 Family History Father Heart disease Mother Cancer Brother Heart disease Surgical History History of appendectomy History of coronary artery stent placement History of hysterectomy History of cholecystectomy Presence of coronary angioplasty implant and graft H/O heart artery stent Social History household members: family Smoking Status: Former smoker alcohol intake: never substance use type: does not use caffeine: Yes Type: coffee Number of servings: 2 ROS <LESTER Dennis - Last Filed: 01/10/25 15:46> ROS ED ROS Narrative Eyes: Negative for visual change. CVS: Negative for chest pain. Respiratory: Negative for shortness of breath. GI: Negative for nausea, vomiting. Neuro: Negative for headache. EXAM <LESTER Dennis - Last Filed: 01/10/25 15:46> Physical Exam Narrative Exam Narrative: CONST: Patient sitting in no acute distress. EYES: Normal inspection. HEAD: Large right frontal hematoma, ecchymosis under right eye. Normal appearance of both globes, PERRL, EOMI. No deformity or crepitus. Able to open and close jaw without pain or malocclusion. No nasal septal hematoma, no epistaxis, no hemotympanum, no CSF otorrhea or rhinorrhea. NECK: Normal inspection. No midline spinal tenderness, no step off or crepitus. RESP: No respiratory distress, CTAB. Chest wall nontender. CVS: Regular rate and rhythm, no murmur, no gallop. ABD: Soft and nontender, no guarding or rebound, nondistended. Pelvis: Stable, nontender. Back: Normal inspection, no midline tenderness. SKIN: Color normal, no rash, warm, dry, intact. EXTREMITIES: Normal appearance, full range of motion of upper and lower extremities, no bony tenderness, 2+ radial and DP pulses. NEURO: Alert and answering questions appropriately. PSYCH: Normal affect. Const Vital Signs: 01/10/25 13:48 Temperature 97.4 F L Temperature Source Temporal Pulse Rate 79 Respiratory Rate 18 Blood Pressure 141/72 H Blood Pressure Mean 95 Pulse Ox 93 Oxygen Delivery Method Room Air <Dr. Guy Gaitan DO - Last Filed: 01/10/25 23:39> Physical Exam Const Vital Signs: 01/10/25 13:48 Temperature 97.4 F L Temperature Source Temporal Pulse Rate 79 Respiratory Rate 18 Blood Pressure 141/72 H Blood Pressure Mean 95 Pulse Ox 93 Oxygen Delivery Method Room Air MDM <LESTER Dennis - Last Filed: 01/10/25 15:46> [facility] Narrative Medical decision making narrative: History gathered from: Patient and her daughter Differential includes closed head injury, hematoma, facial bone or skull fracture, intracranial hemorrhage 89-year-old female had a mechanical fall over a vacuum cord sustaining a head injury. No LOC. No blood thinners. She has a large right frontal hematoma and facial bruising. No deformity or crepitus. No C-spine tenderness. No other injuries. Moving all extremities and neurovascularly intact. CT scans of head, neck, facial bones are all negative. Patient was given Tylenol and advised to use ice. Head injury return precautions discussed. She was able to ambulate with her walker independently down the length of the hallway and was discharged home in stable condition. Radiography Diagnostic Testing: Clinical Impression(s) from Imaging Studies Brain CT 01/10/25 14:43 IMPRESSION: Cerebral atrophy. Scalp hematoma overlying the right frontal bone. Reading Location: [facility] 01/10/25 14:43 IMPRESSION: DEGENERATIVE CHANGES OF THE CERVICAL SPINE. NO EVIDENCE OF SIGNIFICANT OSSEOUS CENTRAL CANAL OR NEURAL FORAMINAL STENOSIS. One or more dose reduction techniques were used (e.g., Automated exposure control, adjustment of the mA and/or kV according to patient size, use of iterative reconstruction technique). Reading Location: [facility] Facial/Sinus 01/10/25 14:43 IMPRESSION: Scalp hematoma overlying the right frontal bone. One or more dose reduction techniques were used (e.g., Automated exposure control, adjustment of the mA and/or kV according to patient size, use of iterative reconstruction technique). Reading Location: [facility] <Dr. Guy Gaitan, DO - Last Filed: 01/10/25 23:39> [facility] MDM Narrative Medical decision making narrative: History gathered from: Patient and her daughter Differential includes closed head injury, hematoma, facial bone or skull fracture, intracranial hemorrhage 89-year-old female had a mechanical fall over a vacuum cord sustaining a head injury. No LOC. No blood thinners. She has a large right frontal hematoma and facial bruising. No deformity or crepitus. No C-spine tenderness. No other injuries. Moving all extremities and neurovascularly intact. CT scans of head, neck, facial bones are all negative. Patient was given Tylenol and advised to use ice. Head injury return precautions discussed. She was able to ambulate with her walker independently down the length of the hallway and was discharged home in stable condition. Attending note: I have personally performed a face to face assessment of the patient and have reviewed the ROBERT note. I personally made/approved the management plan and take responsibility for the patient management. I performed a substantive portion of the visit including all aspects of the following. My saini findings include: Mechanical fall tripping over her vacuum cord. Here with daughter. Ambulates with walker at baseline. Patient not on any anticoagulations. Exam GCS 15. Periorbital hematoma right eye no proptosis or entrapment. No subconjunctival hemorrhage. No focal deficit on exam. No extremity pain. Negative logroll of the lower extremities. Trauma scans head neck and face obtain soft tissue swelling no fractures no intracranial hemorrhage. Patient able to ambulate the walker. Discharged with outpatient follow-up. Radiography Diagnostic Testing: Clinical Impression(s) from Imaging Studies Brain CT 01/10/25 14:43 IMPRESSION: Cerebral atrophy. Scalp hematoma overlying the right frontal bone. Reading Location: [facility] 01/10/25 14:43 IMPRESSION: DEGENERATIVE CHANGES OF THE CERVICAL SPINE. NO EVIDENCE OF SIGNIFICANT OSSEOUS CENTRAL CANAL OR NEURAL FORAMINAL STENOSIS. One or more dose reduction techniques were used (e.g., Automated exposure control, adjustment of the mA and/or kV according to patient size, use of iterative reconstruction technique). Reading Location: [facility] Facial/Sinus 01/10/25 14:43 IMPRESSION: Scalp hematoma overlying the right frontal bone. One or more dose reduction techniques were used (e.g., Automated exposure control, adjustment of the mA and/or kV according to patient size, use of iterative reconstruction technique). Reading Location: [facility] Discharge Plan Triage Chief Complaint: Head Injury Other Complaint: Fall ED Midlevel Provider: Sandy Casillas ED Provider: Guy Gaitan Dx/Rx/DC Orders Clinical Impression: Fall, Closed head injury, Hematoma of frontal scalp Instructions: ED Head Injury (Adult), ED Hematoma Prescriptions: No Action Spiriva Respimat 2.5 mcg/actuation mist 2 puff INHALATION DAILY albuterol sulfate [Ventolin HFA] 90 mcg/actuation HFA aerosol inhaler 2 puff INHALATION Q6H PRN (Reason: Wheezing) metoprolol tartrate 50 mg tablet 100 mg PO BID Patient Comments: 100 mg twice a day short acting losartan 25 mg tablet 25 mg PO DAILY memantine 10 mg tablet 10 mg PO BID mirtazapine 7.5 mg tablet 15 mg PO QHS lansoprazole [Prevacid] 30 MG capsule 30 mg PO DAILY nitroglycerin 0.4 MG tablet 0.4 mg sublingual Q5M PRN (Reason: Chest Pain) vitamins A,C,M-kzxz-tvcvcp 1 EACH capsule 1 ea PO BID multivitamin with folic acid 1 TABLET tablet 1 tab PO DAILY calcium carbonate 600 MG tablet 600 mg PO DAILY atorvastatin 40 MG tablet 40 mg PO QHS glimepiride 1 MG tablet 2.5 mg PO DAILY Dulera 13 GM HFA aerosol inhaler 1 puff IH BID isosorbide mononitrate 30 MG tablet extended release 24 hr 30 mg PO DAILY furosemide 20 MG tablet 40 mg PO DAILY dicyclomine 10 mg capsule 10 mg PO 4X/DAY nystatin 100,000 unit/mL Suspension 500,000 unit PO 4X/DAY 5 Days Qty: 100 0RF prednisone 20 mg Tablet 40 mg PO BREAKFAST Qty: 4 0RF fluticasone propionate [24 Hour Allergy Relief] 50 mcg/actuation spray,suspension 2 spray intranasal DAILY PRN (Reason: ALLERGIES) Rx Instructions: administer into each nostril amlodipine 10 mg tablet 10 mg PO DAILY prednisone 20 mg tablet 20 mg PO BID Qty: 10 0RF guaifenesin [Mucinex] 1,200 mg tablet extended release 12hr 1,200 mg PO BID Qty: 20 0RF levofloxacin 750 mg Tablet 750 mg PO Q48@0600 Qty: 3 0RF Creon 24,000-76,000 -120,000 unit capsule,delayed release(DR/EC) See Rx Instructions PO .COMPLEX Qty: 320 5RF Rx Instructions: Take 2-3 capsules with meals and 1-2 with snacks Primary Care Provider: Maria Antonia Salas Referrals: Maria Antonia Salas MD [Primary Care Provider] - Activity Restrictions/Additional Instructions: The CT scans of her head neck and face show no broken bones or internal bleeding. She has very large area of swelling and bruising called a hematoma. Use ice and take Tylenol every 6 hours as needed. This will take several weeks to go away. If she develops a severe headache, vomiting, or is not acting right or confused come back to the emergency room. Print Language: Bulgarian Disposition Disposition: Home, Self Care Discharge Date/Time: 01/10/25 16:12
[2025-01-10] MEDS: Acetaminophen 325 MG Tablet 650 MG PO (16:06)
== END 2025-01-10 16:12 | disposition home or self-care (01) ==
PROVIDERS: Emergency Provider Emergency Medicine; PCP Internal Medicine; Referring Provider Emergency Medicine; Visit Provider Emergency Medicine
DX: S05.11XA Contusion of eyeball and orbital tissues, right eye, initial encounter (principal); I13.0 Hypertensive heart and chronic kidney disease with heart failure and stage 1 through stage 4 chronic kidney disease, or unspecified chronic kidney disease; I50.9 Heart failure, unspecified; F02.80 Dementia in other diseases classified elsewhere, unspecified severity, without behavioral disturbance, psychotic disturbance, mood disturbance, and anxiety; J44.9 Chronic obstructive pulmonary disease, unspecified; E11.22 Type 2 diabetes mellitus with diabetic chronic kidney disease; Z87.891 Personal history of nicotine dependence; I25.10 Atherosclerotic heart disease of native coronary artery without angina pectoris; E78.2 Mixed hyperlipidemia; W01.198A Fall on same level from slipping, tripping and stumbling with subsequent striking against other object, initial encounter; Y93.01 Activity, walking, marching and hiking; K21.9 Gastro-esophageal reflux disease without esophagitis; Z79.899 Other long term (current) drug therapy; Z79.84 Long term (current) use of oral hypoglycemic drugs; Z79.51 Long term (current) use of inhaled steroids; Z90.49 Acquired absence of other specified parts of digestive tract; Z95.5 Presence of coronary angioplasty implant and graft; Z90.710 Acquired absence of both cervix and uterus
CPT/HCPCS: 70450; 70486; 72125; 99282

== ENCOUNTER 2025-01-28 08:18 | Inpatient (IN) | payer MEDICARE, SELFPAY ==
[2025-01-28] VITALS (23 sets, daily range): BP systolic 112–147; BP diastolic 45–95; PULSE 77–102; RESP 19–32; TEMP 36.5–37.2; O2SAT 90–100; BMI 27.3; BMI 25.0
--- NOTE | 2025-01-28 08:36 | CT_ITS ---
PROCEDURE: CTA CHEST W/WO CONTRAST 01/28/2025 REASON FOR EXAM: RULE OUT PE TECHNIQUE: CTA imaging of the abdomen and pelvis with intravenous contrast. Multiplanar and MIP reconstruction series were provided. One or more dose reduction techniques were used (e.g., Automated exposure control, adjustment of the mA and/or kV according to patient size, use of iterative reconstruction technique). COMPARISON: 12/28/2024 FINDINGS: Lungs/pleura: Moderate emphysematous disease is present. There are patchy areas of multifocal pulmonary consolidation involving all pulmonary lobes.Small bilateral pleural effusions are present. Pulmonary arteries: No evidence of pulmonary embolus. Cardiovascular: The heart is enlarged.Moderate coronary artery calcifications are present.There are severe scattered atherosclerotic calcifications throughout the thoracic aorta. Pericardium: No effusion. Mediastinum: Unremarkable. Lymph nodes: No lymph node enlargement by CT size criteria. Bones: No acute osseous abnormality.Moderate multilevel degenerative changes are present in the visualized spine. Soft tissues: Unremarkable. Upper abdomen: Unremarkable. CT/CTA Chest W/WO Contrast IMPRESSION: 1. No pulmonary embolus identified. 2. Patchy multifocal consolidative pulmonary opacities, possibly due to pulmona ry edema or multifocal pneumonia. 3. Small bilateral pleural effusions. 4. Moderate emphysematous disease. 5. Cardiomegaly with advanced atherosclerotic disease. Reading Location: [facility]
--- NOTE | 2025-01-28 08:36 | EKG12_ITS ---
Test Reason : SOB Blood Pressure : */* mmHG Vent. Rate : 82 BPM Atrial Rate : 82 BPM P-R Int : 138 ms QRS Dur : 64 ms QT Int : 350 ms P-R-T Axes : 68 45 49 degrees QTcB Int : 408 ms Sinus rhythm with Premature supraventricular complexes Nonspecific ST abnormality Abnormal ECG Confirmed by DIANNE MOSQUEDA, JENN ([id number]), assignment editor LISA HENRY ([id number]) on 01/31/2025 9:16:08 AM Referred By: Confirmed By: JENN DEAN MD
--- NOTE | 2025-01-28 08:44 | EX.ED.DYSGE1 ---
HPI History of Present Illness Chief Complaint: Shortness of Breath Narrative Narrative: Patient is a 89-year-old female who is presenting to the ER with chief complaint of shortness of breath. Patient also was seen by PCP 2 days ago. Patient was diagnosed with upper respiratory infection. Patient was placed on a Z-Howard, prednisone. Patient breathing has gotten worse. Patient also has history of noncompliance at home. Patient is supposed to be wearing 3 L of nasal cannula at home. She is post be wearing a CPAP at nighttime. A lot of times patient will not wear her oxygen at home. Patient is a full code. Patient daughter is at bedside, good historian. Patient will wear oxygen when her oxygen levels get in the 80s, daughter will put it on and she will allow it at that time. However she is not compliant, does not wear any oxygen at nighttime most the time, and a lot of times does not wear oxygen during the day. Patient has history of emphysema COPD. Patient also is having left lower lung/left upper quadrant pain. Patient has mild edema. Patient has some mild constipation as well. No abdominal pain otherwise, no nausea vomiting. No other acute complaints. I did verify that patient is a full code. If patient needs to be intubated, she does agree with this. Patient may need CPAP or BiPAP today, patient agrees to this as well. Patient in mild respiratory distress, increased respiratory rate, hypoxic. Patient does have 5 L at this time, 90% on room air. [facility] Medical History Pneumonia Anxiety Depression Osteoporosis Rheumatoid arthritis Kidney disease Pancreatitis On home oxygen therapy COPD (chronic obstructive pulmonary disease) Dementia Wears glasses Wears dentures Diabetes Gastric reflux Chronic pancreatitis Sleep apnea Former smoker Cardiology follow-up encounter History of edema History of atrial fibrillation History of CHF (congestive heart failure) LUQ abdominal pain Leukocytosis Abdominal pain Anemia of chronic renal failure, stage 3 (moderate) Lower leg edema Osteopenia Vitamin D deficiency Esophageal reflux disease Pulmonary hypertension Carotid artery disease PVD (peripheral vascular disease) Ischemic cardiomyopathy PAD (peripheral artery disease) CKD (chronic kidney disease) Type 2 diabetes mellitus Macular degeneration EKATERINA (obstructive sleep apnea) Presence of stent in coronary artery Essential hypertension Atherosclerotic heart disease of [place] coronary artery without angina pectoris Mixed hyperlipidemia Hypoxia Syncope Dyslipidemia CAD (coronary artery disease) COPD (chronic obstructive pulmonary disease) Home Medications ?Medication ?Instructions ?Recorded ?Last Taken ?Type lansoprazole 30 mg capsule,delayed 30 mg PO DAILY ACID REFLUX 10/27/14 01/28/25 History release (Prevacid) multivitamin with folic acid 400 1 tab PO DAILY MULTIVITAMIN 10/27/14 01/28/25 History mcg tablet nitroglycerin 0.4 mg sublingual 0.4 mg sublingual Q5M PRN Chest 10/27/14 12/25/23 History tablet Pain vitamins A,C,C-ttem-jrabcq 4,296 1 ea PO BID SUPPLEMENT 10/27/14 01/28/25 History mcg-226 mg-90 mg capsule albuterol sulfate 90 mcg/actuation 2 puff inhalation Q6H PRN Wheezing 04/07/19 12/25/23 History aerosol inhaler (Ventolin HFA) tiotropium bromide 2.5 2 puff inhalation DAILY breathing 04/07/19 01/28/25 History mcg/actuation mist for inhalation (Spiriva Respimat) atorvastatin 40 mg tablet 40 mg PO QHS cholesterol lowering 10/12/20 01/27/25 History isosorbide mononitrate 30 mg 30 mg PO DAILY heart 10/12/20 01/28/25 History tablet,extended release 24 hr mometasone-formoterol HFA 200 1 puff IH BID breathing 10/12/20 01/28/25 History mcg-5 mcg/actuation aerosol inhaler (Dulera) losartan 25 mg tablet 25 mg PO DAILY 01/25/22 01/28/25 History fluticasone propionate 50 2 spray intranasal DAILY PRN 12/25/23 12/25/23 History mcg/actuation nasal ALLERGIES spray,suspension (24 Hour Allergy Relief) memantine 10 mg tablet 10 mg PO BID 03/24/24 01/28/25 History dicyclomine 10 mg capsule 10 mg PO 4X/DAY 10/12/24 01/28/25 History nystatin 100,000 unit/mL oral 500,000 unit (5 mL) PO 4X/DAY 5 10/14/24 Unknown Rx suspension days #100 mL amlodipine 10 mg tablet 10 mg PO DAILY 11/07/24 01/28/25 History calcium 600 mg (as 1 cap PO BID 01/28/25 01/28/25 History carbonate)-vitamin D3 5 mcg (200 unit) capsule (Calcium 600 + D(3)) ranizil 5 mg tablet 5 mg PO DAILY 01/28/25 01/28/25 History furosemide 40 mg tablet 40 - 80 mg PO DAILY PRN swelling 01/28/25 01/28/25 History glipizide 2.5 mg tablet, extended 2.5 mg PO DAILY 01/28/25 01/28/25 History release 24 hr ipratropium 0.5 mg-albuterol 3 mg 3 ml continuous nebulization Q6H 01/28/25 01/27/25 History (2.5 mg base)/3 mL nebulization PRN wheezing soln hcmnba-[id number] 2 cap PO TID 01/28/25 01/28/25 History 24,000-76,000-120,000 unit capsule,delayed rel (Creon) melatonin 3 mg tablet 3 mg PO QHS PRN sleep 01/28/25 01/27/25 History methylprednisolone 4 mg tablets in See Rx Instructions PO .COMPLEX 01/28/25 01/28/25 History a dose pack metoprolol tartrate 100 mg tablet 100 mg PO BID 01/28/25 01/28/25 History ondansetron HCl 4 mg tablet 4 mg PO Q8H PRN nausea/vomiting 01/28/25 Unknown History Allergy/AdvReac Type Severity Reaction Status Date / Time acetaminophen (From Tylenol) Allergy Hives Verified 01/10/25 13:48 iodine Allergy Hives Verified 01/10/25 13:48 nabumetone Allergy Unknown Verified 01/10/25 13:48 pregabalin (From Lyrica) Allergy Unknown Verified 01/10/25 13:48 Family History Father Heart disease Mother Cancer Brother Heart disease Surgical History History of appendectomy History of coronary artery stent placement History of hysterectomy History of cholecystectomy Presence of coronary angioplasty implant and graft H/O heart artery stent Social History household members: family Smoking Status: Former smoker alcohol intake: never substance use type: does not use caffeine: Yes Type: coffee Number of servings: 2 ROS ROS ED ROS Narrative REVIEW OF SYSTEMS: Unless otherwise stated in this report the patient's positive and negative responses for review of systems for constitutional, eyes, ENT, cardiovascular, respiratory, gastrointestinal, neurological, , musculoskeletal, and integument systems and related systems to the presenting problem are either stated in the history of present illness or were not pertinent or were negative for the symptoms and/or complaints related to the presenting medical problem. EXAM Physical Exam Narrative Exam Narrative: Vital signs reviewed and patient is hypoxic on room air, patient only wears 3 L of nasal cannula when she will allow, history of noncompliance. Patient on 5 L, 90%. Alert at bedside, she is main historian General: The patient appears mild respiratory distress with increased respiratory rate, hypoxia, slight gurgling and audible wheezing slightly. Patient is resting uncomfortably on cart. Not toxic, lethargic, or listless. Skin: Warm, dry, no pallor noted. There is no rash noted. Head: Normocephalic, atraumatic Eye: Normal conjunctiva, no drainage, EOMI. PERRL. Ears, Nose, Mouth, and Throat: oral mucosa is moist. Nares patent. Mouth without vesicles. Cardiovascular: Regular Rate and Rhythm, no murmurs, gallops, or rubs Respiratory: Patient is in mild respiratory distress, increased respiratory rate, patient 5 L nasal cannula, 90% room air. Patient does have diffuse wheezing, prolonged expiratory phase, no rales or crackles, mild rhonchi bilateral bases. Back: non-tender, no CVA tenderness bilaterally to percussion. NO CTLS midline or paraspinal tenderness to palpation. GI: Soft, no tenderness to palpation, no masses appreciated. No rebound, guarding, or rigidity noted. Musculoskeletal: The patient has full range of motion of all extremities and joints with no difficulty. Patient has no motor, no sensory deficits. Mild 1+ pitting edema to lower extremities, Neurological: A&O x4, patient was speaking a few word answers,, no focal neurological deficits. Psychiatric: Cooperative Const Vital Signs: 01/28/25 08:19 01/28/25 08:25 01/28/25 08:51 Temperature 97.7 F L Temperature Source Oral Pulse Rate 84 Respiratory Rate 25 H Respiratory Effort Short of Breath Labored Respiratory Depth Shallow Respiratory Pattern Tachypnea Blood Pressure 147/70 H Blood Pressure Mean 95 Pulse Ox 90 93 Oxygen Delivery Method Nasal Cannula Nasal Cannula Nasal Cannula Oxygen Flow Rate (L/min) 5 5 Fraction of Inspired Oxygen (FIO2) 01/28/25 08:51 01/28/25 09:07 01/28/25 09:14 Temperature Temperature Source Pulse Rate 82 86 Respiratory Rate 32 H Respiratory Effort Respiratory Depth Respiratory Pattern Blood Pressure Blood Pressure Mean Pulse Ox 95 97 Oxygen Delivery Method Oxygen Flow Rate (L/min) Fraction of Inspired Oxygen (FIO2) 60 50 01/28/25 10:06 01/28/25 11:23 Temperature 98.2 F Temperature Source Oral Pulse Rate 87 77 Respiratory Rate 22 H 19 H Respiratory Effort Respiratory Depth Respiratory Pattern Blood Pressure 132/55 H 129/51 H Blood Pressure Mean 80 77 Pulse Ox 91 95 Oxygen Delivery Method Airvo Airvo Oxygen Flow Rate (L/min) Fraction of Inspired Oxygen (FIO2) MDM MDM MDM Narrative Medical decision making narrative: Patient seen and examined: Patient has increased respiratory rate, patient wearing 5 L nasal cannula 90%. Patient history noncompliance. Patient will have septic workup, 2 DuoNebs, ABG, CT of the chest secondary to left lower lung pain/left upper quadrant pain, hypoxia, history of noncompliance with oxygen at home. Differential diagnosis includes but is not limited to: Relevant laboratory interpretation: ABG shows pH of 7.37, CO2 of 43, O2 63; lact 2.9 Radiological studies: Reevaluation: Social barriers to healthcare: There are no food insecurities, there is no issue with transportation, there are no insurance barriers Patient is full code. This was verified this morning by myself, patient and daughter agreed [id number] patient has history of hives with iodine, patient will need PT did for CTA with IV Pepcid and Benadryl. Lactic acid 2.9. Breathing has improved with 2 DuoNebs. Patient ABG lactic acid 2.9, Disposition: Patient will be admitted to the hospital for hypoxia, mild respiratory distress, failed outpatient treatment. Patient has history of COPD/emphysema. Patient is full code patient is meeting sepsis measures. Patient was given. 1.5 L of lactated Ringer's, also placed on Levaquin. Patient did improve after DuoNeb and high flow oxygen was placed as well. Patient was seen and evaluated in the ER by Dr. Petersen. Updates have been given to the daughter and patient. Diagnosis: COPD exacerbation, hypoxia, pneumonia, sepsis, failed outpatient therapy [id number] patient is admitted to the U to Dr. Petersen Critical care time 33 minutes exclusive from separate billable procedures that were performed. The following was considered in the determination of critical care but not limited to the level of medical decision making, intensive cardiac and/or respiratory monitoring, frequent vital sign monitoring, evaluation of laboratory studies, evaluation of radiographic studies, oxygen monitoring, and constant monitoring and speaking to family at bedside Lab Data Labs: Laboratory Results - last 24 hr 01/28/25 01/28/25 01/28/25 08:41 10:46 12:20 WBC 24.4 H RBC 4.74 Hgb 12.7 Hct 39.3 MCV 82.9 MCH 26.8 L MCHC 32.3 RDW Std Deviation 55.3 H RDW Coeff of Christina 18.1 H Plt Count 380 MPV 9.9 Immature Gran % (Auto) 1.100 H Neut % (Auto) 89.6 H Lymph % (Auto) 4.1 L Gaines % (Auto) 5.0 Eos % (Auto) 0.0 Baso % (Auto) 0.2 Absolute Neuts (auto) 21.9 H Absolute Lymphs (auto) 0.99 Nucleated RBC % 0 Platelet Estimate ADEQUATE Polychromasia 1+ Anisocytosis 1+ PT 13.6 INR 1.0 APTT 23.8 L Sodium 133 Potassium 4.7 Chloride 94 L Carbon Dioxide 21.1 Anion Gap 17 H BUN 32 H Creatinine 1.23 H Estim Creat Clear Calc 22.27 L Est GFR (MDRD) Non-Af 42 L BUN/Creatinine Ratio 25.9 H Glucose 147 H Lactic Acid 2.9 H* Calcium 9.7 Total Bilirubin 0.22 AST 30 ALT 18 Alkaline Phosphatase 106 H Troponin T High Sens 37 H Troponin T Hi Sens 2 Hr 43 H Total Protein 6.9 Albumin 3.6 Globulin 3.3 Albumin/Globulin Ratio 1.1 Urine Color Straw Urine Clarity Clear Urine pH 6.0 Ur Specific Ellerbe 1.010 Urine Protein 15 H Urine Glucose (UA) Normal Urine Ketones Negative Urine Occult Blood Negative Urine Nitrite Negative Urine Bilirubin Negative Urine Urobilinogen Normal Ur Leukocyte Esterase Negative Urine RBC 0 SEEN Urine WBC 0 SEEN Ur Squamous Epith Cells 0 SEEN Urine Bacteria 0 SEEN Urine Mucus 0 SEEN 01/28/25 12:42 WBC RBC Hgb Hct MCV MCH MCHC RDW Std Deviation RDW Coeff of Christina Plt Count MPV Immature Gran % (Auto) Neut % (Auto) Lymph % (Auto) Gaines % (Auto) Eos % (Auto) Baso % (Auto) Absolute Neuts (auto) Absolute Lymphs (auto) Nucleated RBC % Platelet Estimate Polychromasia Anisocytosis PT INR APTT Sodium Potassium Chloride Carbon Dioxide Anion Gap BUN Creatinine Estim Creat Clear Calc Est GFR (MDRD) Non-Af BUN/Creatinine Ratio Glucose Lactic Acid 1.4 Calcium Total Bilirubin AST ALT Alkaline Phosphatase Troponin T High Sens Troponin T Hi Sens 2 Hr Total Protein Albumin Globulin Albumin/Globulin Ratio Urine Color Urine Clarity Urine pH Ur Specific Ellerbe Urine Protein Urine Glucose (UA) Urine Ketones Urine Occult Blood Urine Nitrite Urine Bilirubin Urine Urobilinogen Ur Leukocyte Esterase Urine RBC Urine WBC Ur Squamous Epith Cells Urine Bacteria Urine Mucus ABG Data ABG results: ABG 01/28/25 08:51 Specimen Type ART Sample Site L Radial pH 7.38 Bicarbonate Actual 25.7 Total CO2 27 Base Excess 1 O2 Saturation 91 L O2 % 5.0 ABG pCO2 43.6 ABG pO2 63 L Marco A Test Positive O2 Delivery Device Not entered Vent Mode Not entered Clinical Comments 5l nc Radiography Diagnostic Testing: Clinical Impression(s) from Imaging Studies Chest CTA 01/28/25 08:36 IMPRESSION: 1. No pulmonary embolus identified. 2. Patchy multifocal consolidative pulmonary opacities, possibly due to pulmonary edema or multifocal pneumonia. 3. Small bilateral pleural effusions. 4. Moderate emphysematous disease. 5. Cardiomegaly with advanced atherosclerotic disease. Reading Location: [facility] EKG Initial EKG: Attestation: I personally reviewed and interpreted this EKG as follows: (EKG interpretation. Normal sinus rhythm 82 beats a minute. Normal axis deviation. No acute ST elevation, no acute ectopy. QTc 408. Artifact noted. Compared to old EKG on November 07, 2024, no acute changes on today's EKG.) Discharge Plan Disposition Disposition: Acute Care Hospital [facility] Discharge Date/Time: 01/28/25 13:55
[2025-01-28] MEDS: Ipratropium/Albuterol Sulfate 3 ML AMPUL.NEB 6 ML INHALATION (08:50)
[2025-01-28 08:53] LABS: Absolute Lymphocyte Count 0.99 X10^3/uL (0.83-4.51); Absolute Neutrophil Count 21.9 X10^3/uL (2.0-7.7); Basophil# 0.04 X10^3/uL; Basophil% 0.2 % (0-1); Eosinophil# 0.01 X10^3/uL; Hematocrit 39.3 % (37-47); Hemoglobin 12.7 g/dL (12.0-15.0); Lymphocyte # 0.99 X10^3/ul (0.83-4.51); Lymphocyte % 4.1 % (19-41); Mean Corp Hgb Conc 32.3 g/dL (32-36); Mean Corpuscular Hgb 26.8 pg (27.0-32.0); Mean Corpuscular Volume 82.9 fL (81-99); Mean Platelet Vol. 9.9 fl (6.2-12.0); Monocyte# 1.21 X10^3/uL; NRBC Flagged by Analyzer 0 % (0-5); Neutrophil # 21.87 X10^3/uL (2.7-7.7); Neutrophil % 89.6 % (47-70); POSITIVE DIFFERENTIAL YES; Platelet Count 380 K/mm3 (150-450); RBC Distribution Width CV 18.1 % (11.6-14.6); RBC Distribution Width SD 55.3 fl (35.1-43.9); Red Blood Count 4.74 M/mm3 (4.2-5.4); White Blood Count 24.4 K/mm3 (4.4-11.0)
[2025-01-28] MEDS: MethylPREDNISolone 125 MG/2 ML Vial IV (08:54)
[2025-01-28 08:57] LABS: Allen Test Positive; Base Excess 1 mmol/L (-2 to +2); Bicarbonate 25.7 mmol/L (22-26); Blood Gas Specimen Type ART; Comment 5l nc; Mode Not entered; O2 Delivery Device Not entered; PO2 63 mmHG (75-100); SITE L Radial; SO2 91 % (95-99); Total Carbon Dioxide 27 mmol/L; pCO2 43.6 mmHg (35-45); pH 7.38 (7.35-7.45)
[2025-01-28 09:01] LABS: Prothrombin Time (Protime)PT. 13.6 SECONDS (11.7-14.9)
[2025-01-28 09:02] LABS: Partial Thromboplast Time 23.8 Seconds (24.1-36.2)
[2025-01-28] MEDS: Magnesium Sulfate 2 GM in Dextrose 5%-Water (100mL Bag) 100 ML IV (09:04)
[2025-01-28 09:07] LABS: Troponin T High Sensitivity 37 ng/L (<=14)
[2025-01-28 09:38] LABS: Lactic Acid 2.9 mmol/L (0.0-2.0)
[2025-01-28] MEDS: DiphenhydrAMINE 50 MG/ML Syringe 25 MG IV (10:04)
[2025-01-28] MEDS: Famotidine 200 MG/20 ML MDV 20 MG in 0.9% Normal Saline (Pres. free 8 ML 300 MG IV (10:05)
[2025-01-28 10:14] LABS: ALB/GLOB Ratio 1.1 RATIO (0.9-2.4); AST(SGOT) 30 U/L (<=31); Alanine Aminotransfer ALT/SGPT 18 U/L (<=34); Albumin, Serum 3.6 g/dL (3.4-4.8); Alkaline Phosphatase 106 U/L (35-104); Anion Gap 17 (5-15); BUN 32 mg/dL (4-19); BUN/Creat Ratio 25.9 RATIO (10-20); Calcium,Total 9.7 mg/dL (7.6-11.0); Carbon Dioxide 21.1 mmol/L (21.0-32.0); Chloride 94 mmol/L (98-108); Creatinine, Serum 1.23 mg/dL (0.70-1.20); EST Glomerular Filtration Rate 42 (>60); Estimated Creatinine Clearance 22.27 ml/min (50-250); Globulin 3.3 g/dL (2.2-4.2); Glucose 147 mg/dL (70-99); Potassium 4.7 mmol/L (3.3-5.1); Protein, Total 6.9 g/dL (5.9-8.4); Sodium Level 133 mmol/L (133-145); Total Bilirubin 0.22 mg/dL (0.00-1.30)
[2025-01-28 11:10] LABS: Differential Indicated SCAN CRITERIA MET
[2025-01-28 11:10] LABS: Troponin T High Sens 2 HR 43 ng/L (<=14)
[2025-01-28 11:37] LABS: Anisocytosis 1+
[2025-01-28 11:38] LABS: Platelet Estimate ADEQUATE (ADEQ); Polychromasia 1+
[2025-01-28 12:24] LABS: Bacteria 0 SEEN /hpf (None Seen); Mucous, Urine 0 SEEN /hpf (<or=2+); Squamous Epithelial Cells - UA 0 SEEN /hpf (5-10); White Blood Cells 0 SEEN /hpf (0-5)
[2025-01-28 12:27] LABS: Color, Urine Straw (Yellow); Glucose, Dipstick Normal (Normal); Ketone-Dipstick Negative (Negative); Leukocyte Esterase-Dipstick Negative /ul (Negative); Nitrite-Dipstick Negative (Negative); Occult Blood-Urine Negative /ul (Negative); Protein-Dipstick 15 mg/dl (Negative); Urine Bilirubin Dipstick Negative (Negative); Urine Clarity Clear (Clear); Urine Urobilinogen Normal (Normal)
[2025-01-28 12:50] LABS: Red Blood Cells-Urine 0 SEEN /hpf (0-5)
--- NOTE | 2025-01-28 13:01 | PCM.HP.STD ---
[facility] - General General Date of Service: 01/28/25 Chief Complaint: Cough and shortness of breath HPI Narrative KYLE ARROYO, is a 89 F who presents with several day history of cough and shortness of breath. Had been started on antibiotics prednisone with her primary care doctor. But continued to get worse coughing up green phlegm. Having fever and chills at home. Planing of sore throat. Just present to the emergency room they did a CT of her chest that showed bilateral infiltrates. Patient received levofloxacin in the emergency room. Also received methylprednisolone, albuterol. Patient was placed on Airvo and her respiratory status is improved. Patient did receive 500cc of LR. Patient was normotensive but then her pressure did drop down with MAP less than 65. So initial plan was to put the patient in PCU but with her pressure being marginal at this time, but the patient and the ICU and have the patient finish up the 30 cc/kg of IV fluid which should be total of 1590 cc. [facility] Medical History (Updated 01/28/25 @ 13:[address] Trae Petersen, ) Pneumonia Anxiety Depression Osteoporosis Rheumatoid arthritis Kidney disease Pancreatitis On home oxygen therapy COPD (chronic obstructive pulmonary disease) Dementia Wears glasses Wears dentures Diabetes Gastric reflux Chronic pancreatitis Sleep apnea Former smoker Cardiology follow-up encounter History of edema History of atrial fibrillation History of CHF (congestive heart failure) LUQ abdominal pain Leukocytosis Abdominal pain Anemia of chronic renal failure, stage 3 (moderate) Lower leg edema Osteopenia Vitamin D deficiency Esophageal reflux disease Pulmonary hypertension Carotid artery disease PVD (peripheral vascular disease) Ischemic cardiomyopathy PAD (peripheral artery disease) CKD (chronic kidney disease) Type 2 diabetes mellitus Macular degeneration EKATERINA (obstructive sleep apnea) Presence of stent in coronary artery Essential hypertension Atherosclerotic heart disease of [place] coronary artery without angina pectoris Mixed hyperlipidemia Hypoxia Syncope Dyslipidemia CAD (coronary artery disease) COPD (chronic obstructive pulmonary disease) Home Medications ?Medication ?Instructions ?Recorded ?Last Taken ?Type lansoprazole 30 mg capsule,delayed 30 mg PO DAILY ACID REFLUX 10/27/14 01/28/25 History release (Prevacid) multivitamin with folic acid 400 1 tab PO DAILY MULTIVITAMIN 10/27/14 01/28/25 History mcg tablet nitroglycerin 0.4 mg sublingual 0.4 mg sublingual Q5M PRN Chest 10/27/14 12/25/23 History tablet Pain vitamins A,C,E-aarh-wcmbgz 4,296 1 ea PO BID SUPPLEMENT 10/27/14 01/28/25 History mcg-226 mg-90 mg capsule albuterol sulfate 90 mcg/actuation 2 puff inhalation Q6H PRN Wheezing 04/07/19 12/25/23 History aerosol inhaler (Ventolin HFA) tiotropium bromide 2.5 2 puff inhalation DAILY breathing 04/07/19 01/28/25 History mcg/actuation mist for inhalation (Spiriva Respimat) atorvastatin 40 mg tablet 40 mg PO QHS cholesterol lowering 10/12/20 01/27/25 History isosorbide mononitrate 30 mg 30 mg PO DAILY heart 10/12/20 01/28/25 History tablet,extended release 24 hr mometasone-formoterol HFA 200 1 puff IH BID breathing 10/12/20 01/28/25 History mcg-5 mcg/actuation aerosol inhaler (Dulera) losartan 25 mg tablet 25 mg PO DAILY 01/25/22 01/28/25 History fluticasone propionate 50 2 spray intranasal DAILY PRN 12/25/23 12/25/23 History mcg/actuation nasal ALLERGIES spray,suspension (24 Hour Allergy Relief) memantine 10 mg tablet 10 mg PO BID 03/24/24 01/28/25 History dicyclomine 10 mg capsule 10 mg PO 4X/DAY 10/12/24 01/28/25 History nystatin 100,000 unit/mL oral 500,000 unit (5 mL) PO 4X/DAY 5 10/14/24 Unknown Rx suspension days #100 mL amlodipine 10 mg tablet 10 mg PO DAILY 11/07/24 01/28/25 History calcium 600 mg (as 1 cap PO BID 01/28/25 01/28/25 History carbonate)-vitamin D3 5 mcg (200 unit) capsule (Calcium 600 + D(3)) donepezil 5 mg tablet 5 mg PO DAILY 01/28/25 01/28/25 History furosemide 40 mg tablet 40 - 80 mg PO DAILY PRN swelling 01/28/25 01/28/25 History glipizide 2.5 mg tablet, extended 2.5 mg PO DAILY 01/28/25 01/28/25 History release 24 hr ipratropium 0.5 mg-albuterol 3 mg 3 ml continuous nebulization Q6H 01/28/25 01/27/25 History (2.5 mg base)/3 mL nebulization PRN wheezing soln wffzzb-[id number]-shqiycn 2 cap PO TID 01/28/25 01/28/25 History 24,000-76,000-120,000 unit capsule,delayed rel (Creon) melatonin 3 mg tablet 3 mg PO QHS PRN sleep 01/28/25 01/27/25 History methylprednisolone 4 mg tablets in See Rx Instructions PO .COMPLEX 01/28/25 01/28/25 History a dose pack metoprolol tartrate 100 mg tablet 100 mg PO BID 01/28/25 01/28/25 History ondansetron HCl 4 mg tablet 4 mg PO Q8H PRN nausea/vomiting 01/28/25 Unknown History Allergy/AdvReac Type Severity Reaction Status Date / Time acetaminophen (From Tylenol) Allergy Hives Verified 01/10/25 13:48 iodine Allergy Hives Verified 01/10/25 13:48 nabumetone Allergy Unknown Verified 01/10/25 13:48 pregabalin (From Lyrica) Allergy Unknown Verified 01/10/25 13:48 Family History Father Heart disease Mother Cancer Brother Heart disease Surgical History History of appendectomy History of coronary artery stent placement History of hysterectomy History of cholecystectomy Presence of coronary angioplasty implant and graft H/O heart artery stent Social History household members: family Smoking Status: Former smoker alcohol intake: never substance use type: does not use caffeine: Yes Type: coffee Number of servings: 2 ROS ROS Narrative Lower extremity edema. All review of systems were negative except as mentioned above in the history of present illness and the other review of systems. Vital Signs Vital Signs Vital Signs: 01/28/25 08:19 01/28/25 08:25 01/28/25 08:51 Temperature 36.5 C L Temperature Source Oral Pulse Rate 84 Respiratory Rate 25 H Respiratory Effort Short of Breath Labored Respiratory Depth Shallow Respiratory Pattern Tachypnea Blood Pressure 147/70 H Blood Pressure Mean 95 Pulse Ox 90 93 Oxygen Delivery Method Nasal Cannula Nasal Cannula Nasal Cannula Oxygen Flow Rate (L/min) 5 5 Fraction of Inspired Oxygen (FIO2) 01/28/25 08:51 01/28/25 09:07 01/28/25 09:14 Temperature Temperature Source Pulse Rate 82 86 Respiratory Rate 32 H Respiratory Effort Respiratory Depth Respiratory Pattern Blood Pressure Blood Pressure Mean Pulse Ox 95 97 Oxygen Delivery Method Oxygen Flow Rate (L/min) Fraction of Inspired Oxygen (FIO2) 60 50 01/28/25 10:06 01/28/25 11:23 Temperature 36.8 C Temperature Source Oral Pulse Rate 87 77 Respiratory Rate 22 H 19 H Respiratory Effort Respiratory Depth Respiratory Pattern Blood Pressure 132/55 H 129/51 H Blood Pressure Mean 80 77 Pulse Ox 91 95 Oxygen Delivery Method Airvo Airvo Oxygen Flow Rate (L/min) Fraction of Inspired Oxygen (FIO2) Weight Weight: 53.3 kg Body Mass Index (BMI) 27.3 Physical Exam Const alert and no apparent distress Constitutional Narrative: On Airvo. No respiratory distress. No conversational dyspnea. General Appearance: cooperative HEENT normocephalic, head/scalp atraumatic, hearing grossly normal bilaterally and moist oral mucous membranes Eyes Eyes Narrative: No icterus Neck no lymphadenopathy and No no JVD Resp Resp Narrative: Bilateral crackles throughout as well as bilateral diffuse wheezes Cardio regular rate, regular rhythm, S1 normal heart sound and S2 normal heart sound GI normal to inspection, nondistended, normoactive bowel sounds, soft to palpation, non-tender and non-distended Extremity normal to inspection and no clubbing, cyanosis or edema Neuro moves all extremities Sensorium / Orientation: awake Psych affect normal Results Lab / Micro Data Attestation: I reviewed the patient's lab results. 01/28/25 08:41 01/28/25 08:41 Labs: Laboratory Results - last 24 hr 01/28/25 08:41: WBC 24.4 H, RBC 4.74, Hgb 12.7, Hct 39.3, MCV 82.9, MCH 26.8 L, MCHC 32.3, RDW Std Deviation 55.3 H, RDW Coeff of Christina 18.1 H, Plt Count 380, MPV 9.9, Immature Gran % (Auto) 1.100 H, Neut % (Auto) 89.6 H, Lymph % (Auto) 4.1 L, [place] % (Auto) 5.0, Eos % (Auto) 0.0, Baso % (Auto) 0.2, Absolute Neuts (auto) 21.9 H, Absolute Lymphs (auto) 0.99, Nucleated RBC % 0, Platelet Estimate ADEQUATE, Polychromasia 1+, Anisocytosis 1+, PT 13.6, INR 1.0, APTT 23.8 L, Sodium 133, Potassium 4.7, Chloride 94 L, Carbon Dioxide 21.1, Anion Gap 17 H, BUN 32 H, Creatinine 1.23 H, Estim Creat Clear Calc 22.27 L, Est GFR (MDRD) Non-Af 42 L, BUN/Creatinine Ratio 25.9 H, Glucose 147 H, Lactic Acid 2.9 H*, Calcium 9.7, Total Bilirubin 0.22, AST 30, ALT 18, Alkaline Phosphatase 106 H, Troponin T High Sens 37 H, Total Protein 6.9, Albumin 3.6, Globulin 3.3, Albumin/Globulin Ratio 1.1 01/28/25 10:46: Troponin T Hi Sens 2 Hr 43 H 01/28/25 12:20: Urine Color Straw, Urine Clarity Clear, Urine pH 6.0, Ur Specific [place] 1.010, Urine Protein 15 H, Urine Glucose (UA) Normal, Urine Ketones Negative, Urine Occult Blood Negative, Urine Nitrite Negative, Urine Bilirubin Negative, Urine Urobilinogen Normal, Ur Leukocyte Esterase Negative, Urine RBC 0 SEEN, Urine WBC 0 SEEN, Ur Squamous Epith Cells 0 SEEN, Urine Bacteria 0 SEEN, Urine Mucus 0 SEEN Micro: Microbiology 01/28/25 08:50 Mucosa - Nose SARS-CoV-2, Influenza & RSV (PCR) - Final ABG Data ABG results: ABG 01/28/25 08:51 Specimen Type ART Sample Site L Radial pH 7.38 Bicarbonate Actual 25.7 Total CO2 27 Base Excess 1 O2 Saturation 91 L O2 % 5.0 ABG pCO2 43.6 ABG pO2 63 L Marco A Test Positive O2 Delivery Device Not entered Vent Mode Not entered Clinical Comments 5l nc Imaging Radiology Impression Chest CTA 01/28/25 08:36 IMPRESSION: 1. No pulmonary embolus identified. 2. Patchy multifocal consolidative pulmonary opacities, possibly due to pulmonary edema or multifocal pneumonia. 3. Small bilateral pleural effusions. 4. Moderate emphysematous disease. 5. Cardiomegaly with advanced atherosclerotic disease. Reading Location: [facility] Assessment & Plan Assessment/Plan (1) Sepsis: PLAN: Present on admission. Please review admission labs and vitals for SIRS and qSOFA criteria. Patient received 500 cc of LR in the emergency room. Will give the patient the remainder of this 30 cc/kg of IV fluid. Will admit the patient to the ICU at least overnight. Unclear if need for pressors but I did told the patient and her daughter, who is at bedside, that if the patient does not respond to IV fluids that she will need a central IV line to be able to administer pressors. They are agreeable if that became necessary. (2) Pneumonia: PLAN: Suspected pneumococcal. Previously patient has had Pseudomonas which has been sensitive to Levaquin. Will continue with levofloxacin. Check urinary antigen strep and Legionella. Check sputum culture Pulmonary toilet. Guaifenesin. (3) Acute hypoxic respiratory failure: PLAN: Secondary to pneumonia and COPD exacerbation. Currently on Airvo and appears to be stable. ABG showed pH of 7.38, pCO2 43.6 and low pO2 of 63. Wean oxygen as tolerated (4) Acute exacerbation of chronic obstructive pulmonary disease: PLAN: Likely exacerbated by the pneumonia Methylprednisolone and bronchodilators PLAN: Plan Protein calorie malnutrition: Nutrition to see. Start supplements GERD: Continue PPI Dementia: Hold donezepil and memantine for now. Hypertension: Hold amlodipine, furosemide, isosorbide, losartan for now. Pancreatic insufficiency: Continue with Creon. VTE prophylaxis with enoxaparin CODE STATUS: Addressed with the patient and her daughter. Patient is full code. I did go in detail about CPR and the fact that if the patient were to undergo cardiac arrest her ribs to most likely be broken and explained the low likelihood of survival if she were to develop cardiac arrest. Additionally explained that if she does survive cardiac arrest that she would most likely be on a ventilator.
[2025-01-28] MEDS: levoFLOXacin IV 750 MG/150 ML BAG 100 MG IV (13:31)
[2025-01-28] MEDS: LACTATED RINGERS 500 ML 999 ML IV (13:31)
[2025-01-28] MEDS: Lactated Ringers 1,000 ML 999 ML IV (13:31)
--- NOTE | 2025-01-28 13:32 | CASEMGMT ---
Care Management Face to Face with patient for initial transition planning/care coordination assessment in the ED. This chart writer introduced self and role at [facility]. Patient alert and oriented, though sleeping periodically throughout assessment. Patient gave permission for patient's daughter, Katherin, to answer questions that were necessary. Care providers, pharmacy, and demographics verified. Admitting Diagnosis: sepsis, pneumonia, acute hypoxic respiratory failure, acute exacerbation of chronic obstructive pulmonary disease Other diagnosis history: sleep apnea, COPD, dementia, a fib, CHF PCP: [facility] Specialists: Dr. Jasmin Avendano, pulmonology. Dr. Louie, cardiology. Dr. Mcneill, podiatry. Dr. Green, GI. Dr. Bui, neurology. Unknown psychiatrist via telehealth. Preferred Pharmacy: [facility]. Katherin stated desire to use [facility] at discharge. Insurance: [employer] Medicare Prescription Benefit: yes Living Will/HPOA: Katherin banegas (HCPOA document on file) LNOK: Katherin banegas. Living Arrangements: lives with daughter, Katherin, daughter's boyfriend, and patient's son (who has special needs). 3 total steps to enter the home and Katherin reports helping patient with these 3 steps. First floor living. Patient needs total assistance with all ADLs and IADLs; Katherin helps with this as well as being the full-time caregiver for patient's son. There is reportedly a caregiver assigned for patient's son, though Katherin states this not being a consistent presence due to caregiver's canceling, which causes Katherin to be caregiver for both patient and patient's son. Transportation: Katherin drives patient DME: cane, shower chair, raised toilet seat, walker, medical alert, lift chair, bed railing, nebulizer, grab bars, glucometer and testing strips, pulse ox. Bipap and O2 3L through [employer] (on Airvo in ED). HHC: [facility] HHC SNF/Rehab: none (Katherin states making patient's , who is , a promise that Katherin would take care of patient. Katherin states belief that if Katherin sends patient to a SNF, that will be breaking the promise Katherin made to patient's . Through conversation with this SW, Katherin was asking questions about the SNF process and appeared more willing to consider SNF as an option). Community Resources: none currently, though daughter requests help with getting an aide set up to help with patient's care. Behavioral Health History: anxiety and depression listed on medical records. Patient goals: Patient's daughter, Katherin, wishes for patient to discharge home with [facility]. Katherin more willing to consider SNF if recommended as conversation with SW continued. Disposition Plan: admission to acute; RN CM/SW to follow for discharge planning needs that may arise. Maria M Laughlin, DRILL PRESS OPERATOR NUMERICAL CONTROL, NEURO OPHTHALMOLOGIST
[2025-01-28 13:35] LABS: Lactic Acid 1.4 mmol/L (0.0-2.0)
[2025-01-28 13:52] LABS: Troponin T High Sens 4 HR 36 ng/L (<=14)
--- NOTE | 2025-01-28 14:10 | CHAPLAIN ---
Type of Pastoral Visit _x__ Initial Visit ___ Follow-up Visit ___ On-call Visit ___ General Patient Visit ___ Spiritual Assessment ___ Family Conference ___ Bereavement ___ Rapid Response ___ Code Blue ___ Other (describe below) Pastoral Care Referral From ___ Patient _x__ Family ___ Nurse ___ Physician _x__ Aquatic Habitat Biologist ___ Medical Planner ___ Other (describe below) Sacrament/Intervention _x__ Active listening ___ Anointing ___ Scientologist ___ Bereavement ___ Communion ___ Shari exploration ___ ___ Life review _x__ Prayer ___ Reconciliation ___ Sacrament of Sick _x__ Supportive presence ___ Wedding ___ Other (describe below) Pastoral Comments SW called to ask for a visit of support to this patient and in particular her daughter; patient and daughter have been met before in this hospital; daughter is the primary caregiver who also has responsibilities for a brother with handicaps; daughter admits to feeling like she is letting her mother down when she gets sick and that it is difficult to manage the care of two people who do not live in the same house; pt is being admitted to the ICU and she is alert and remembers this director video; offer of presence and prayer is received; made comments that patient will have assurance of good care and being in the hospital can be a needed break for the daughter; no other needs are presented at this time except that daughter needs to eat something soon
[2025-01-28] MEDS: 0.9% Normal Saline (1000mL) 1,000 ML 999 ML IV ×3 (14:43→16:05)
[2025-01-28] MEDS: Methylprednisolone Sod Succ 40 MG/ML VIAL IV ×2 (14:56→21:16)
[2025-01-28] MEDS: Ipratropium/Albuterol Sulfate 3 ML AMPUL.NEB INHALATION ×3 (15:46→23:11)
--- NOTE | 2025-01-28 16:49 | SEPSISATNOTE ---
Sepsis Attestation Sepsis Alert: Yes Sepsis Attestation: Agree w/Sepsis Date exam was performed: 01/28/25 Time exam was performed: 16:30 Possible Source of Sepsis: Pulmonary Fluid Resuscitation Fluid resuscitation indicated?: Yes Fluid Resuscitation ordered: 30 ml/kg fluid bolus ordered Amount of fluid ordered: 1,590 Sepsis Note Date exam was performed: 01/28/25 Time exam was performed: 16:30 Sepsis Attestation: Sepsis re-evaluation was performed Response to fluids: Fluid responsive hypotension
[2025-01-28] MEDS: Ensure Clear 120 ML Liquid PO (21:16)
[2025-01-28] MEDS: Atorvastatin Calcium 40 MG Tablet PO (21:16)
[2025-01-28] MEDS: Dicyclomine 10 MG Capsule PO (21:16)
[2025-01-28] MEDS: guaiFENesin 600 MG Tablet PO (21:16)
[2025-01-28] MEDS: 0.9% Saline Lock 10 ML Syringe IV (21:17)
--- NOTE | 2025-01-28 23:15 | CPS ---
Breathing treatment stopped early due to HR 122
[2025-01-28] MEDS: CHLORHEXIDINE GLUC 2% CLOTH 1 EACH TOWELETTE TOPICAL (23:30)
[2025-01-29] VITALS (21 sets, daily range): BP systolic 110–186; BP diastolic 47–88; PULSE 80–132; RESP 16–26; TEMP 36.2–37; O2SAT 92–98; BMI 26.0
[2025-01-29] MEDS: guaiFENesin 10 ML UDC (200MG/10ML) PO (00:31)
[2025-01-29] MEDS: Methylprednisolone Sod Succ 40 MG/ML VIAL IV ×2 (05:34→13:41)
[2025-01-29] MEDS: 0.9% Saline Lock 10 ML Syringe IV ×2 (05:34→21:34)
--- NOTE | 2025-01-29 06:56 | PCM.PN.HOSP ---
Reason for Visit Reason for Visit: Diagnoses Sepsis, unspecified organism (01/28/25) Pneumonia, unspecified organism (01/28/25) Chronic obstructive pulmonary disease with (acute) exacerbation (01/28/25) Acute respiratory failure with hypoxia (01/28/25) Subjective Subjective Feels well. No new complaints. Objective Data Objective Data Vital Signs: Vital Signs Temp Pulse Resp BP Pulse Ox O2 Del Method O2 Flow Rate 37.0 C 94 23 H 140/74 H 96 Nasal Cannula 4 01/29/25 00:00 01/29/25 06:00 01/29/25 06:00 01/29/25 06:00 01/29/25 06:00 01/29/25 06:00 01/29/25 06:00 FiO2 50 01/28/25 09:14 Oxygen Flow Rate (L/min) 4 Oxygen Delivery Method Nasal Cannula Weight: 51 kg Body Mass Index (BMI) 26.0 Intake & Output: Intake and Output for Last 24 Hours 01/27/25 01/28/25 01/29/25 23:59 23:59 23:59 Intake Total 3195.9 / 3195.9 Output Total 650 / 850 350 / 350 Balance 2545.9 / 2345.9 -350 / -350 Medical Nutrition Assessment Dietitian: Malnutrition Criteria Met Start: 01/28/25 15:46 Freq: Status: Active Protocol: Document 01/28/25 15:46 SB (Rec: 01/28/25 15:46 SB [id number]) Nutrition Malnutrition Evidence of Yes Malnutrition Exists Malnutrition (severe Acute Illness/Injury ): Evidenced By Suboptimal Energy Intake (Severe),Weight Loss (Severe) Clinical Problem Acute Disease or Injury Related Malnutrition Etiology severe related to inadequate oral intake Signs/Symptoms as evidenced by PO meeting <50% of estimated nutrition needs x 1 month and 9% unintentional weight loss x 2 months. Status Active Problem Recommendation Dietitian Recommend advanced diet as tolerated to consistent Recommendations/ carbohydrate per BIG DATA ENGINEER consistency/texture Changes recommendations. As diet is advanced order 120ml chocolate or strawberry glucerna shake TID with meals. Will monitor weight trends. Lab / Micro Data 01/29/25 06:52 01/29/25 06:52 Labs: Laboratory Results - last 24 hr 01/28/25 08:41: WBC 24.4 H, RBC 4.74, Hgb 12.7, Hct 39.3, MCV 82.9, MCH 26.8 L, MCHC 32.3, RDW Std Deviation 55.3 H, RDW Coeff of [place] 18.1 H, Plt Count 380, MPV 9.9, Immature Gran % (Auto) 1.100 H, Neut % (Auto) 89.6 H, Lymph % (Auto) 4.1 L, [place] % (Auto) 5.0, Eos % (Auto) 0.0, Baso % (Auto) 0.2, Absolute Neuts (auto) 21.9 H, Absolute Lymphs (auto) 0.99, Nucleated RBC % 0, Platelet Estimate ADEQUATE, Polychromasia 1+, Anisocytosis 1+, PT 13.6, INR 1.0, APTT 23.8 L, Sodium 133, Potassium 4.7, Chloride 94 L, Carbon Dioxide 21.1, Anion Gap 17 H, BUN 32 H, Creatinine 1.23 H, Estim Creat Clear Calc 22.27 L, Est GFR (MDRD) Non-Af 42 L, BUN/Creatinine Ratio 25.9 H, Glucose 147 H, Lactic Acid 2.9 H*, Calcium 9.7, Total Bilirubin 0.22, AST 30, ALT 18, Alkaline Phosphatase 106 H, Troponin T High Sens 37 H, Total Protein 6.9, Albumin 3.6, Globulin 3.3, Albumin/Globulin Ratio 1.1 01/28/25 10:46: Troponin T Hi Sens 2 Hr 43 H 01/28/25 12:20: Urine Color Straw, Urine Clarity Clear, Urine pH 6.0, Ur Specific [place] 1.010, Urine Protein 15 H, Urine Glucose (UA) Normal, Urine Ketones Negative, Urine Occult Blood Negative, Urine Nitrite Negative, Urine Bilirubin Negative, Urine Urobilinogen Normal, Ur Leukocyte Esterase Negative, Urine RBC 0 SEEN, Urine WBC 0 SEEN, Ur Squamous Epith Cells 0 SEEN, Urine Bacteria 0 SEEN, Urine Mucus 0 SEEN 01/28/25 12:42: Lactic Acid 1.4 01/28/25 13:20: Lactic Acid Cancelled, Troponin T Hi Sens 4Hr 36 H Micro: Microbiology 01/28/25 12:20 Urine, Clean Catch Legionella Antigen - Final 01/28/25 12:20 Urine, Clean Catch Streptococcus pneumoniae Antigen (M - Final 01/28/25 08:50 Mucosa - Nose SARS-CoV-2, Influenza & RSV (PCR) - Final ABG Data ABG results: ABG 01/28/25 08:51 Specimen Type ART Sample Site L Radial pH 7.38 Bicarbonate Actual 25.7 Total CO2 27 Base Excess 1 O2 Saturation 91 L O2 % 5.0 ABG pCO2 43.6 ABG pO2 63 L Marco A Test Positive O2 Delivery Device Not entered Vent Mode Not entered Clinical Comments 5l nc Radiography Diagnostic Testing: Radiology Impression Chest CTA 01/28/25 08:36 IMPRESSION: 1. No pulmonary embolus identified. 2. Patchy multifocal consolidative pulmonary opacities, possibly due to pulmonary edema or multifocal pneumonia. 3. Small bilateral pleural effusions. 4. Moderate emphysematous disease. 5. Cardiomegaly with advanced atherosclerotic disease. Reading Location: [facility] Physical Exam Const alert and no apparent distress HEENT head/scalp atraumatic and moist oral mucous membranes Resp normal respiratory effort, no retractions, no use of accessory muscles and clear to auscultation bilaterally Cardio regular rate, regular rhythm, S1 normal heart sound and S2 normal heart sound GI normal to inspection, nondistended, normoactive bowel sounds, soft to palpation, non-tender and non-distended Assessment & Plan Assessment/Plan (1) Sepsis: PLAN: 2/2 PNA Present on admission. Please review admission labs and vitals for SIRS and qSOFA criteria. Pt received 30cc/kg of IVF. Remains hemodynamically stable. CCM involvement not deemed necessary as patient has remained hemodynamically stable. (2) Pneumonia: PLAN: Suspected pneumococcal. Previously patient has had Pseudomonas which has been sensitive to Levaquin. Will continue with levofloxacin. Check urinary antigen strep and Legionella. Check sputum culture Pulmonary toilet. Guaifenesin. (3) Acute hypoxic respiratory failure: PLAN: Secondary to pneumonia and COPD exacerbation. Currently on Airvo and appears to be stable. ABG showed pH of 7.38, pCO2 43.6 and low pO2 of 63. Wean oxygen as tolerated (4) Acute exacerbation of chronic obstructive pulmonary disease: PLAN: Likely exacerbated by the pneumonia Methylprednisolone and bronchodilators PLAN: Plan Protein calorie malnutrition: Nutrition to see. Start supplements GERD: Continue PPI Dementia: Hold donezepil and memantine for now. Hypertension: Hold amlodipine, furosemide, isosorbide, losartan for now. Pancreatic insufficiency: Continue with Creon. VTE prophylaxis with enoxaparin CODE STATUS: Addressed with the patient and her daughter. Patient is full code. I did go in detail about CPR and the fact that if the patient were to undergo cardiac arrest her ribs to most likely be broken and explained the low likelihood of survival if she were to develop cardiac arrest. Additionally explained that if she does survive cardiac arrest that she would most likely be on a ventilator. Charges/Coding Visit Charges Inpatient E&M: 83766 Subs Hosp L2
[2025-01-29] MEDS: Ipratropium/Albuterol Sulfate 3 ML AMPUL.NEB INHALATION ×4 (07:10→22:21)
[2025-01-29 07:15] LABS: Absolute Lymphocyte Count 0.82 X10^3/uL (0.83-4.51); Absolute Neutrophil Count 16.7 X10^3/uL (2.0-7.7); Basophil# 0.02 X10^3/uL; Basophil% 0.1 % (0-1); Hematocrit 30.8 % (37-47); Hemoglobin 10.1 g/dL (12.0-15.0); Lymphocyte # 0.82 X10^3/ul (0.83-4.51); Lymphocyte % 4.4 % (19-41); Mean Corp Hgb Conc 32.8 g/dL (32-36); Mean Corpuscular Hgb 27.3 pg (27.0-32.0); Mean Corpuscular Volume 83.2 fL (81-99); Monocyte% 3.8 % (0-10); NRBC Flagged by Analyzer 0 % (0-5); Neutrophil # 16.71 X10^3/uL (2.7-7.7); Neutrophil % 90.6 % (47-70); Platelet Count 281 K/mm3 (150-450); RBC Distribution Width CV 18.3 % (11.6-14.6); RBC Distribution Width SD 55.8 fl (35.1-43.9); White Blood Count 18.5 K/mm3 (4.4-11.0)
[2025-01-29] MEDS: Enoxaparin 30 MG/0.3 ML Syringe SC (07:59)
[2025-01-29] MEDS: Dicyclomine 10 MG Capsule PO ×4 (07:59→21:23)
[2025-01-29] MEDS: Lansoprazole 15 MG Capsule.DR 30 MG PO (07:59)
[2025-01-29] MEDS: guaiFENesin 600 MG Tablet PO ×2 (08:00→21:23)
[2025-01-29 08:21] LABS: Anion Gap 15 (5-15); BUN 18 mg/dL (4-19); BUN/Creat Ratio 19.5 RATIO (10-20); Calcium,Total 8.7 mg/dL (7.6-11.0); Carbon Dioxide 21.1 mmol/L (21.0-32.0); Chloride 95 mmol/L (98-108); Creatinine, Serum 0.94 mg/dL (0.70-1.20); EST Glomerular Filtration Rate 58 (>60); Estimated Creatinine Clearance 29.14 ml/min (50-250); Glucose 144 mg/dL (70-99); Potassium 3.8 mmol/L (3.3-5.1); Sodium Level 131 mmol/L (133-145)
[2025-01-29 08:34] LABS: Magnesium 2.2 mg/dL (1.5-2.2); Phosphorus 3.5 mg/dL (2.7-4.5)
[2025-01-29] MEDS: Losartan Potassium 25 MG Tablet PO (09:33)
[2025-01-29] MEDS: Metoprolol Tartrate 100 MG Tablet PO ×2 (09:33→21:22)
[2025-01-29] MEDS: Memantine Hydrochloride 10 MG Tablet PO ×2 (09:33→21:23)
[2025-01-29] MEDS: amLODIPine 10 MG Tablet PO (09:34)
[2025-01-29] MEDS: Isosorbide Mononitrate 30 MG Tablet PO (09:34)
[2025-01-29] MEDS: Ensure Clear 120 ML Liquid PO (13:50)
[2025-01-29] MEDS: Creon 24,000 unit DR Capsule 2 CAP PO (16:42)
[2025-01-29] MEDS: MELATONIN 3 MG TABLET PO (21:22)
[2025-01-29] MEDS: Atorvastatin Calcium 40 MG Tablet PO (21:23)
[2025-01-30] VITALS (11 sets, daily range): BP systolic 122–139; BP diastolic 54–56; PULSE 81–103; RESP 18–28; TEMP 36.7–37.1; O2SAT 93–97
[2025-01-30 07:15] LABS: Absolute Lymphocyte Count 0.97 X10^3/uL (0.83-4.51); Absolute Neutrophil Count 16.4 X10^3/uL (2.0-7.7); Basophil# 0.04 X10^3/uL; Basophil% 0.2 % (0-1); Eosinophil# 0.05 X10^3/uL; Eosinophils% 0.3 % (0-5); Hematocrit 28.3 % (37-47); Hemoglobin 9.6 g/dL (12.0-15.0); Lymphocyte # 0.97 X10^3/ul (0.83-4.51); Mean Corp Hgb Conc 33.9 g/dL (32-36); Mean Corpuscular Hgb 27.7 pg (27.0-32.0); Mean Corpuscular Volume 81.6 fL (81-99); Mean Platelet Vol. 10.3 fl (6.2-12.0); Monocyte# 1.54 X10^3/uL; NRBC Flagged by Analyzer 0 % (0-5); Neutrophil # 16.37 X10^3/uL (2.7-7.7); Neutrophil % 84.6 % (47-70); POSITIVE DIFFERENTIAL YES; Platelet Count 291 K/mm3 (150-450); RBC Distribution Width SD 53.7 fl (35.1-43.9); Red Blood Count 3.47 M/mm3 (4.2-5.4); White Blood Count 19.3 K/mm3 (4.4-11.0)
[2025-01-30 07:16] LABS: Differential Indicated SCAN CRITERIA MET
[2025-01-30] MEDS: Ipratropium/Albuterol Sulfate 3 ML AMPUL.NEB INHALATION ×5 (07:38→22:47)
[2025-01-30 08:06] LABS: Anion Gap 11 (5-15); BUN 18 mg/dL (4-19); BUN/Creat Ratio 20.2 RATIO (10-20); Calcium,Total 8.8 mg/dL (7.6-11.0); Carbon Dioxide 22.2 mmol/L (21.0-32.0); Chloride 93 mmol/L (98-108); Creatinine, Serum 0.89 mg/dL (0.70-1.20); EST Glomerular Filtration Rate 62 (>60); Estimated Creatinine Clearance 30.78 ml/min (50-250); Glucose 164 mg/dL (70-99); Potassium 4.5 mmol/L (3.3-5.1); Sodium Level 126 mmol/L (133-145)
--- NOTE | 2025-01-30 08:20 | PCM.PN.HOSP ---
Reason for Visit Reason for Visit: Diagnoses Sepsis, unspecified organism (01/28/25) Pneumonia, unspecified organism (01/28/25) Chronic obstructive pulmonary disease with (acute) exacerbation (01/28/25) Acute respiratory failure with hypoxia (01/28/25) Objective Data Objective Data Vital Signs: Vital Signs Temp Pulse Resp BP Pulse Ox O2 Del Method O2 Flow Rate 36.8 C 81 20 H 147/62 H 93 Nasal Cannula 3 01/29/25 21:20 01/30/25 07:40 01/30/25 07:40 01/29/25 21:20 01/30/25 07:40 01/30/25 07:40 01/30/25 07:40 FiO2 50 01/28/25 09:14 Oxygen Flow Rate (L/min) 3 Oxygen Delivery Method Nasal Cannula Weight: 51 kg Body Mass Index (BMI) 26.0 Intake & Output: Intake and Output for Last 24 Hours 01/28/25 01/29/25 01/30/25 23:59 23:59 23:59 Intake Total 3195.9 / 3195.9 920 / 920 Output Total 650 / 850 350 / 350 Balance 2545.9 / 2345.9 570 / 570 Medical Nutrition Assessment Dietitian: Malnutrition Criteria Met Start: 01/28/25 15:46 Freq: Status: Active Protocol: Document 01/28/25 15:46 SB (Rec: 01/28/25 15:46 SB [id number]) Nutrition Malnutrition Evidence of Yes Malnutrition Exists Malnutrition (severe Acute Illness/Injury ): Evidenced By Suboptimal Energy Intake (Severe),Weight Loss (Severe) Clinical Problem Acute Disease or Injury Related Malnutrition Etiology severe related to inadequate oral intake Signs/Symptoms as evidenced by PO meeting <50% of estimated nutrition needs x 1 month and 9% unintentional weight loss x 2 months. Status Active Problem Recommendation Dietitian Recommend advanced diet as tolerated to consistent Recommendations/ carbohydrate per OFFSET PRESSMAN consistency/texture Changes recommendations. As diet is advanced order 120ml chocolate or strawberry glucerna shake TID with meals. Will monitor weight trends. Lab / Micro Data 01/30/25 04:35 01/30/25 04:35 Labs: Laboratory Results - last 24 hr 01/29/25 06:52: Sodium 131 L, Potassium 3.8, Chloride 95 L, Carbon Dioxide 21.1, Anion Gap 15, BUN 18, Creatinine 0.94, Estim Creat Clear Calc 29.14 L, Est GFR (MDRD) Non-Af 58 L, BUN/Creatinine Ratio 19.5, Glucose 144 H, Calcium 8.7, Phosphorus 3.5, Magnesium 2.2 01/30/25 04:35: WBC 19.3 H, RBC 3.47 L, Hgb 9.6 L, Hct 28.3 L, MCV 81.6, MCH 27.7, MCHC 33.9, RDW Std Deviation 53.7 H, RDW Coeff of Christina 18.0 H, Plt Count 291, MPV 10.3, Immature Gran % (Auto) 1.900 H, Neut % (Auto) 84.6 H, Lymph % (Auto) 5.0 L, [place] % (Auto) 8.0, Eos % (Auto) 0.3, Baso % (Auto) 0.2, Absolute Neuts (auto) 16.4 H, Absolute Lymphs (auto) 0.97, Nucleated RBC % 0, Diff Path Review March, Sodium 126 L, Potassium 4.5, Chloride 93 L, Carbon Dioxide 22.2, Anion Gap 11, BUN 18, Creatinine 0.89, Estim Creat Clear Calc 30.78 L, Est GFR (MDRD) Non-Af 62, BUN/Creatinine Ratio 20.2 H, Glucose 164 H, Calcium 8.8 Micro: Microbiology 01/28/25 12:20 Urine, Clean Catch Urine Culture - Preliminary Culture exhibits no growth. 01/28/25 12:20 Urine, Clean Catch Legionella Antigen - Final 01/28/25 12:20 Urine, Clean Catch Streptococcus pneumoniae Antigen (M - Final 01/28/25 08:50 Mucosa - Nose SARS-CoV-2, Influenza & RSV (PCR) - Final Assessment & Plan Assessment/Plan (1) Sepsis: PLAN: 2/2 PNA Present on admission. Please review admission labs and vitals for SIRS and qSOFA criteria. Pt received 30cc/kg of IVF. Remains hemodynamically stable. CCM consult not deemed necessary as patient has remained hemodynamically stable. (2) Pneumonia: PLAN: Suspected pneumococcal. Previously patient has had Pseudomonas which has been sensitive to Levaquin. Will continue with levofloxacin. Check urinary antigen strep and Legionella. Check sputum culture Pulmonary toilet. Guaifenesin. (3) Acute hypoxic respiratory failure: PLAN: Secondary to pneumonia and COPD exacerbation. Currently on Airvo and appears to be stable. ABG showed pH of 7.38, pCO2 43.6 and low pO2 of 63. Wean oxygen as tolerated (4) Acute exacerbation of chronic obstructive pulmonary disease: PLAN: Likely exacerbated by the pneumonia Methylprednisolone and bronchodilators PLAN: Plan Protein calorie malnutrition: Nutrition to see. Start supplements GERD: Continue PPI Dementia: Hold donezepil and memantine for now. Hypertension: Hold amlodipine, furosemide, isosorbide, losartan for now. Pancreatic insufficiency: Continue with Creon. VTE prophylaxis with enoxaparin CODE STATUS: Addressed with the patient and her daughter. Patient is full code. I did go in detail about CPR and the fact that if the patient were to undergo cardiac arrest her ribs to most likely be broken and explained the low likelihood of survival if she were to develop cardiac arrest. Additionally explained that if she does survive cardiac arrest that she would most likely be on a ventilator.
--- NOTE | 2025-01-30 08:40 | PCM.PN.HOSP ---
Reason for Visit Reason for Visit: Diagnoses Sepsis, unspecified organism (01/28/25) Pneumonia, unspecified organism (01/28/25) Chronic obstructive pulmonary disease with (acute) exacerbation (01/28/25) Acute respiratory failure with hypoxia (01/28/25) Subjective Subjective More short of breath today. Objective Data Objective Data Vital Signs: Vital Signs Temp Pulse Resp BP Pulse Ox O2 Del Method O2 Flow Rate 36.8 C 99 18 139/56 H 94 Nasal Cannula 3 01/30/25 08:33 01/30/25 08:33 01/30/25 08:33 01/30/25 08:33 01/30/25 08:33 01/30/25 08:33 01/30/25 08:33 FiO2 50 01/28/25 09:14 Oxygen Flow Rate (L/min) 3 Oxygen Delivery Method Nasal Cannula Weight: 51 kg Body Mass Index (BMI) 26.0 Intake & Output: Intake and Output for Last 24 Hours 01/28/25 01/29/25 01/30/25 23:59 23:59 23:59 Intake Total 3195.9 / 3195.9 920 / 920 Output Total 650 / 850 350 / 350 Balance 2545.9 / 2345.9 570 / 570 Medical Nutrition Assessment Dietitian: Malnutrition Criteria Met Start: 01/28/25 15:46 Freq: Status: Active Protocol: Document 01/28/25 15:46 SB (Rec: 01/28/25 15:46 SB [id number]) Nutrition Malnutrition Evidence of Yes Malnutrition Exists Malnutrition (severe Acute Illness/Injury ): Evidenced By Suboptimal Energy Intake (Severe),Weight Loss (Severe) Clinical Problem Acute Disease or Injury Related Malnutrition Etiology severe related to inadequate oral intake Signs/Symptoms as evidenced by PO meeting <50% of estimated nutrition needs x 1 month and 9% unintentional weight loss x 2 months. Status Active Problem Recommendation Dietitian Recommend advanced diet as tolerated to consistent Recommendations/ carbohydrate per READING ASSISTANT consistency/texture Changes recommendations. As diet is advanced order 120ml chocolate or strawberry glucerna shake TID with meals. Will monitor weight trends. Lab / Micro Data 01/30/25 04:35 01/30/25 04:35 Labs: Laboratory Results - last 24 hr 01/30/25 04:35: WBC 19.3 H, RBC 3.47 L, Hgb 9.6 L, Hct 28.3 L, MCV 81.6, MCH 27.7, MCHC 33.9, RDW Std Deviation 53.7 H, RDW Coeff of Christina 18.0 H, Plt Count 291, MPV 10.3, Immature Gran % (Auto) 1.900 H, Neut % (Auto) 84.6 H, Lymph % (Auto) 5.0 L, Amelia % (Auto) 8.0, Eos % (Auto) 0.3, Baso % (Auto) 0.2, Absolute Neuts (auto) 16.4 H, Absolute Lymphs (auto) 0.97, Nucleated RBC % 0, Diff Path Review March, Sodium 126 L, Potassium 4.5, Chloride 93 L, Carbon Dioxide 22.2, Anion Gap 11, BUN 18, Creatinine 0.89, Estim Creat Clear Calc 30.78 L, Est GFR (MDRD) Non-Af 62, BUN/Creatinine Ratio 20.2 H, Glucose 164 H, Calcium 8.8 Micro: Microbiology 01/28/25 12:20 Urine, Clean Catch Urine Culture - Preliminary Culture exhibits no growth. 01/28/25 12:20 Urine, Clean Catch Legionella Antigen - Final 01/28/25 12:20 Urine, Clean Catch Streptococcus pneumoniae Antigen (M - Final 01/28/25 08:50 Mucosa - Nose SARS-CoV-2, Influenza & RSV (PCR) - Final Physical Exam Const Constitutional Narrative: more alert. no respiratory distress. no conversational dyspnea. Resp Resp Narrative: diminished breath sounds bilaterally. Cardio regular rate, regular rhythm, S1 normal heart sound and S2 normal heart sound GI normal to inspection, nondistended, normoactive bowel sounds, soft to palpation, non-tender and non-distended Neuro Sensorium / Orientation: awake and alert Psych affect normal Assessment & Plan Assessment/Plan (1) Sepsis: PLAN: 2/2 PNA Present on admission. Please review admission labs and vitals for SIRS and qSOFA criteria. Pt received 30cc/kg of IVF. Remains hemodynamically stable. CCM consult not deemed necessary as patient has remained hemodynamically stable. (2) Pneumonia: PLAN: Suspected pneumococcal. Previously patient has had Pseudomonas which has been sensitive to Levaquin. Will continue with levofloxacin. Urinary antigen strep and Legionella negative.. Check sputum culture (yet to be collected) Pulmonary toilet. Guaifenesin. (3) Acute exacerbation of chronic obstructive pulmonary disease: PLAN: Likely exacerbated by the pneumonia Methylprednisolone and bronchodilators (4) Acute hypoxic respiratory failure: PLAN: Resolved. Secondary to pneumonia and COPD exacerbation. Currently on Airvo and appears to be stable. ABG showed pH of 7.38, pCO2 43.6 and low pO2 of 63. Wean oxygen as tolerated (5) Hyponatremia: PLAN: 126 today. Chronically low dating back to Dec 27. Cortisol low, will check ACTH stim test. TSH low, but FT4 WNL. Serum Osm 268. Check Urine Osm, urine Na. PLAN: Plan Protein calorie malnutrition: Nutrition to see. Start supplements GERD: Continue PPI Dementia: resume donezapil. Hypertension: Hold amlodipine, furosemide, isosorbide, losartan for now. Pancreatic insufficiency: Continue with Creon. VTE prophylaxis with enoxaparin CODE STATUS: Addressed with the patient and her daughter. Patient is full code. I did go in detail about CPR and the fact that if the patient were to undergo cardiac arrest her ribs to most likely be broken and explained the low likelihood of survival if she were to develop cardiac arrest. Additionally explained that if she does survive cardiac arrest that she would most likely be on a ventilator. DW patient's daughter at bedside. Charges/Coding Visit Charges Inpatient E&M: 90843 Subs Hosp L2
[2025-01-30] MEDS: levoFLOXacin IV 750 MG/150 ML BAG 100 MG IV (08:43)
[2025-01-30] MEDS: Isosorbide Mononitrate 30 MG Tablet PO (08:46)
[2025-01-30] MEDS: Metoprolol Tartrate 100 MG Tablet PO ×2 (08:46→21:10)
[2025-01-30] MEDS: Memantine Hydrochloride 10 MG Tablet PO ×2 (08:46→21:10)
[2025-01-30] MEDS: Creon 24,000 unit DR Capsule 2 CAP PO ×3 (08:46→16:45)
[2025-01-30] MEDS: amLODIPine 10 MG Tablet PO (08:46)
[2025-01-30] MEDS: Lansoprazole 15 MG Capsule.DR 30 MG PO (08:46)
[2025-01-30] MEDS: Dicyclomine 10 MG Capsule PO ×4 (08:46→21:10)
[2025-01-30] MEDS: Enoxaparin 30 MG/0.3 ML Syringe SC (08:47)
[2025-01-30] MEDS: Losartan Potassium 25 MG Tablet PO (08:47)
[2025-01-30] MEDS: guaiFENesin 600 MG Tablet PO ×2 (08:47→21:10)
[2025-01-30] MEDS: Ensure Clear 120 ML Liquid PO (08:53)
[2025-01-30 10:27] LABS: CORTISOL AM 2.86 ug/dL (6.02-18.40); Thyroid Stim Hormone (TSH) 0.262 uIU/mL (0.300-4.200)
[2025-01-30 11:02] LABS: Osmolality, Serum 268 mOsm/KG (280-301)
[2025-01-30] MEDS: Ensure Plus High Protein 120 ML LIQUID PO ×4 (11:47→21:10)
[2025-01-30 12:39] LABS: Free T3 1.9 pg/mL (2.18-3.98)
[2025-01-30] MEDS: Albuterol 2.5 MG/3 ML VIAL.NEB. INHALATION (13:11)
[2025-01-30] MEDS: guaiFENesin 10 ML UDC (200MG/10ML) PO ×2 (14:38→21:10)
[2025-01-30] MEDS: MELATONIN 3 MG TABLET PO (21:10)
[2025-01-30] MEDS: Atorvastatin Calcium 40 MG Tablet PO (21:10)
[2025-01-30 22:00] LABS: Osmolality, Urine 288 mOsm/KG
[2025-01-30 22:20] LABS: Urine Sodium 46 mmol/L (Not Establ.)
[2025-01-31] VITALS (14 sets, daily range): BP systolic 105–130; BP diastolic 50–68; PULSE 79–118; RESP 18–28; TEMP 36.8–37.2; O2SAT 92–98; BMI 29.6
[2025-01-31] MEDS: Ipratropium/Albuterol Sulfate 3 ML AMPUL.NEB INHALATION ×6 (03:31→23:25)
[2025-01-31] MEDS: 0.9% Saline Lock 10 ML Syringe IV ×4 (05:33→21:07)
[2025-01-31] MEDS: Cosyntropin 0.25 MG in 0.9% Normal Saline (Pres. free 4 ML 150 MG IV (05:33)
[2025-01-31 05:40] LABS: Absolute Lymphocyte Count 1.35 X10^3/uL (0.83-4.51); Absolute Neutrophil Count 12.2 X10^3/uL (2.0-7.7); Basophil# 0.03 X10^3/uL; Basophil% 0.2 % (0-1); Eosinophil# 0.08 X10^3/uL; Eosinophils% 0.5 % (0-5); Hematocrit 31.6 % (37-47); Hemoglobin 10.3 g/dL (12.0-15.0); Lymphocyte # 1.35 X10^3/ul (0.83-4.51); Lymphocyte % 8.7 % (19-41); Mean Corp Hgb Conc 32.6 g/dL (32-36); Mean Corpuscular Hgb 26.5 pg (27.0-32.0); Mean Corpuscular Volume 81.4 fL (81-99); Mean Platelet Vol. 9.3 fl (6.2-12.0); Monocyte# 1.28 X10^3/uL; Monocyte% 8.3 % (0-10); NRBC Flagged by Analyzer 0 % (0-5); Neutrophil # 12.16 X10^3/uL (2.7-7.7); Neutrophil % 78.6 % (47-70); Platelet Count 290 K/mm3 (150-450); RBC Distribution Width CV 18.1 % (11.6-14.6); RBC Distribution Width SD 53.8 fl (35.1-43.9); Red Blood Count 3.88 M/mm3 (4.2-5.4); White Blood Count 15.5 K/mm3 (4.4-11.0)
[2025-01-31 06:14] LABS: CORTISOL AM 9.98 ug/dL (6.02-18.40)
[2025-01-31 07:53] LABS: Anion Gap 10 (5-15); BUN 11 mg/dL (4-19); BUN/Creat Ratio 13.6 RATIO (10-20); Calcium,Total 8.5 mg/dL (7.6-11.0); Carbon Dioxide 22.4 mmol/L (21.0-32.0); Chloride 95 mmol/L (98-108); Creatinine, Serum 0.77 mg/dL (0.70-1.20); EST Glomerular Filtration Rate 73 (>60); Estimated Creatinine Clearance 38.04 ml/min (50-250); Glucose 104 mg/dL (70-99); Potassium 3.9 mmol/L (3.3-5.1); Sodium Level 127 mmol/L (133-145)
[2025-01-31] MEDS: Creon 24,000 unit DR Capsule 2 CAP PO ×2 (08:22→17:36)
[2025-01-31] MEDS: Lansoprazole 15 MG Capsule.DR 30 MG PO (08:22)
[2025-01-31] MEDS: Dicyclomine 10 MG Capsule PO ×4 (08:23→21:06)
[2025-01-31] MEDS: amLODIPine 10 MG Tablet PO (08:23)
[2025-01-31] MEDS: Metoprolol Tartrate 100 MG Tablet PO ×2 (08:23→21:05)
[2025-01-31] MEDS: Isosorbide Mononitrate 30 MG Tablet PO (08:24)
[2025-01-31] MEDS: Enoxaparin 30 MG/0.3 ML Syringe SC (08:24)
[2025-01-31] MEDS: Losartan Potassium 25 MG Tablet PO (08:24)
[2025-01-31] MEDS: guaiFENesin 600 MG Tablet PO ×2 (08:24→21:05)
[2025-01-31] MEDS: Memantine Hydrochloride 10 MG Tablet PO ×2 (08:24→21:05)
[2025-01-31] MEDS: Donepezil HCl 5 MG Tablet PO (08:29)
--- NOTE | 2025-01-31 10:14 | PCM.PN.HOSP ---
Reason for Visit Reason for Visit: Diagnoses Sepsis, unspecified organism (01/28/25) Hypo-osmolality and hyponatremia (01/28/25) Pneumonia, unspecified organism (01/28/25) Chronic obstructive pulmonary disease with (acute) exacerbation (01/28/25) Acute respiratory failure with hypoxia (01/28/25) Subjective Subjective Patient is an 89-year-old lady who presented to the emergency department with progressive shortness of breath and hypoxia. Imaging studies with CTA did show patchy multifocal consolidative pulmonary opacities, possibly due to pulmonary edema or multifocal pneumonia. Small bilateral pleural effusions. Moderate emphysematous disease. Objective Data Objective Data Vital Signs: Vital Signs Temp Pulse Resp BP Pulse Ox O2 Del Method O2 Flow Rate 98.3 F 94 18 129/54 H 95 Nasal Cannula 3 01/31/25 08:15 01/31/25 08:23 01/31/25 08:15 01/31/25 08:15 01/31/25 08:15 01/31/25 08:25 01/31/25 08:25 FiO2 50 01/28/25 09:14 Oxygen Flow Rate (L/min) 3 Oxygen Delivery Method Nasal Cannula Weight: 58.1 kg Body Mass Index (BMI) 29.6 Intake & Output: Intake and Output for Last 24 Hours 01/29/25 01/30/25 01/31/25 23:59 23:59 23:59 Intake Total 920 / 920 950 / 950 125 / 125 Output Total 350 / 350 500 / 500 Balance 570 / 570 950 / 950 -375 / -375 Medical Nutrition Assessment Dietitian: Malnutrition Criteria Met Start: 01/28/25 15:46 Freq: Status: Active Protocol: Document 01/28/25 15:46 SB (Rec: 01/28/25 15:46 SB [id number]) Nutrition Malnutrition Evidence of Yes Malnutrition Exists Malnutrition (severe Acute Illness/Injury ): Evidenced By Suboptimal Energy Intake (Severe),Weight Loss (Severe) Clinical Problem Acute Disease or Injury Related Malnutrition Etiology severe related to inadequate oral intake Signs/Symptoms as evidenced by PO meeting <50% of estimated nutrition needs x 1 month and 9% unintentional weight loss x 2 months. Status Active Problem Recommendation Dietitian Recommend advanced diet as tolerated to consistent Recommendations/ carbohydrate per COMPENSATION SPECIALIST consistency/texture Changes recommendations. As diet is advanced order 120ml chocolate or strawberry glucerna shake TID with meals. Will monitor weight trends. Lab / Micro Data 01/31/25 05:25 01/31/25 06:35 Labs: Laboratory Results - last 24 hr 01/30/25 08:45: Serum Osmolality 268 L, TSH 0.262 L, Free T4 1.40, Free T3 pg/dL 1.9 L, Cortisol AM Sample 2.86 L 01/30/25 20:09: Urine Osmolality 288, Ur Random Sodium 46 01/31/25 05:25: WBC 15.5 H, RBC 3.88 L, Hgb 10.3 L, Hct 31.6 L, MCV 81.4, MCH 26.5 L, MCHC 32.6, RDW Std Deviation 53.8 H, RDW Coeff of Christina 18.1 H, Plt Count 290, MPV 9.3, Immature Gran % (Auto) 3.700 H, Neut % (Auto) 78.6 H, Lymph % (Auto) 8.7 L, [place] % (Auto) 8.3, Eos % (Auto) 0.5, Baso % (Auto) 0.2, Absolute Neuts (auto) 12.2 H, Absolute Lymphs (auto) 1.35, Nucleated RBC % 0, Cortisol AM Sample 9.98 01/31/25 06:35: Sodium 127 L, Potassium 3.9, Chloride 95 L, Carbon Dioxide 22.4, Anion Gap 10, BUN 11, Creatinine 0.77, Estim Creat Clear Calc 38.04 L, Est GFR (MDRD) Non-Af 73, BUN/Creatinine Ratio 13.6, Glucose 104 H, Calcium 8.5, Cortisol AM Sample 21.40 H Micro: Microbiology 01/28/25 09:29 Blood Culture (Wb) - Arm Left Blood Culture - Preliminary No growth in 48 hours. 01/28/25 08:50 Blood Culture (Wb) - Anticubital Right Blood Culture - Preliminary No growth in 48 hours. 01/28/25 12:20 Urine, Clean Catch Urine Culture - Final Mixed Gram Positive Organisms 01/28/25 12:20 Urine, Clean Catch Legionella Antigen - Final 01/28/25 12:20 Urine, Clean Catch Streptococcus pneumoniae Antigen (M - Final 01/28/25 08:50 Mucosa - Nose SARS-CoV-2, Influenza & RSV (PCR) - Final Physical Exam Narrative GENERAL: cooperative HEENT: Bruising on the right forehead with a hematoma EYES; Anicteric, Normal Conjunctiva NECK; supple, normal thyroid, RESPIRATORY: Diminished to auscultation CARDIOVASCULAR: Regular S1 S2, GI: soft, normoactive bowel sounds, : No Renal angle tenderness; EXTREMITIES: No edema, no clubbing, MUSCULOSKELETAL: no muscle wasting NEURO: Awake; no lateralizing signs. SKIN: No Rash PSYCH; Flat affect Assessment & Plan Assessment/Plan (1) Acute hypoxic respiratory failure: (2) Hyponatremia: (3) Pneumonia: PLAN: Plan Patient is an 89-year-old lady who presented to the emergency department with progressive shortness of breath and hypoxia. Imaging studies with CTA did show patchy multifocal consolidative pulmonary opacities, possibly due to pulmonary edema or multifocal pneumonia. Small bilateral pleural effusions. Moderate emphysematous disease. 1. Acute on chronic hypoxic respiratory failure ? Due to combination of COPD exacerbation, pneumonia as well as acute on chronic congestive heart failure with preserved ejection fraction. Imaging studies with CTA did show patchy multifocal consolidative pulmonary opacities, possibly due to pulmonary edema or multifocal pneumonia. Small bilateral pleural effusions. Moderate emphysematous disease.Patient has been admitted to monitored floor started on supplemental oxygen titrated to keep saturation greater than 90 with treatment of the underlying clinical etiology 2. Pneumonia - Suspected to be secondary to streptococcal pneumonia, Blood and sputum cultures sent. Patient placed on Levaquin and placed on oxygen titrated to keep Pulse Ox greater than 90 3. COPD with acute exacerbation ? Patient started on bronchodilator treatment, systemic steroid as well as antibiotic therapy. Patient placed on oxygen titrated to keep saturation greater than 90. 4. Acute on chronic congestive heart failure with preserved ejection fraction ?-Echocardiogram on 12/26/2023 showed EF of 70% with pulmonary systolic pressure of 55 mmHg and moderate pulmonary hypertension. Patient started on daily weight, strict input and output, fluid restriction, low-sodium diet as well as Furosemide 5. Coronary artery disease ? With previous PCI involvement left circumflex lesion. Patient is on guideline directed medical therapy 6. Hypertension ? Blood pressure controlled, home medications continued with dose adjustment as needed 7. Dyslipidemia ?Patient is on statin therapy, continued at home dose 8. Diabetes mellitus type II -patient's oral hypoglycemics held. Placed on long acting insulin, Accu-Cheks a.c. and at bedtime and covered with sliding scale insulin 9. Hyponatremia ? Suspected to be secondary to a combination of factors including possible SIADH from patient's severe emphysema and fluid overload status patient started on Lasix repeat labs ordered for a.m. 10. Dysphagia -Patient has known esophageal dysphagia from sliding hiatal hernia consult was placed to speech therapy on admission. Patient is scheduled to undergo speech and swallow eval 11. GERD ? Patient is on PPI 12. Pancreatic insufficiency ? Patient is a lipase- protease- amylase supplements 13. Physical deconditioning ? With recurrent falls. Requested for PT OT eval and child protective services social worker to assist with discharge planning 14. DVT prophylaxis ? On enoxaparin Time spent in the patient's overall evaluation,decision-making process, review of diagnostic data, adjustment of management, discussion with other providers, nursing nursing and ancillary staff involved in patient's care documentation, 52 minutes Charges/Coding Visit Charges Inpatient E&M: 32340 [facility] L3
[2025-01-31] MEDS: Ondansetron 4 MG/2 ML Vial IV (10:55)
[2025-01-31] MEDS: Enoxaparin 40 MG/0.4 ML Syringe SC (10:55)
[2025-01-31] MEDS: Furosemide 20 MG/2 ML VIAL IV ×2 (11:41→21:06)
--- NOTE | 2025-01-31 13:09 | SP.MBSS_ITS ---
Modified Barium Swallow Patient Information Study Date: 01/31/25 Study Time: 13:30 Direct Billable Minutes: 97 Total Minutes procedure & reportin Diagnosis: PNA J18.9 Referring Physician: Leonel Spence Reason for Referral: Assess swallow function, assess risk for aspiration, and determine recommendations for least restrictive diet textures and compensatory strategies to improve safety of swallow. Medical History: Patient presented to [facility] ED 01/28/2025 with several day history of cough and shortness of breath. Had been started on antibiotics, prednisone with her PCP. Coughing became worse w/ coughing up of green phlegm, fever, chills, and sore throat. CT of her chest showed bilateral infiltrates. Patient was placed on Airvo in the ED. Pt admitted to the hospital for management of acute respiratory failure, PNA, and COPD exacerbation amongst other comorbidities. ST ordered during acute stay due to hx of dysphagia and concern for aspiration. BSE 01/29/2025 recommended soft and bite size textures / thin liquids w/ recommendation for aspiration precautions, including small sips one at a time, chin tuck, no straws (See BSE for full recommendations). Pt to be considered for MBSS if concern for worsening diet tolerance or lung sounds. Pt w/ continued expiratory wheezing this morning. CLOTH HAULER recommended MBSS to rule out concern for aspiration given hx of dysphagia and silent aspiration. MBSS 10/13/2024: Moderate Oropharyngeal Dysphagia R13.12. Diet: Regular Textures (Easy to Chew) and Thin Liquids; Compensatory Strategies/Aspiration Precautions: small volume sips, one sip at a time w/ a CHIN TUCK posture, no straws, seated upright at 90 degrees for all PO intake, oral hygiene before/after meals, MADDIE ENT IS A SILENT ASPIRATOR - DOES NOT COUGH OR CHOKE WHEN LIQUID ENTERS THE AIRWAY. Supervision: Distant Supervision (provide verbal cues to ensure consistent chin tuck posture w/ liquids). PMH: Wears glasses/dentures, Diabetes, Gastric reflux, Chronic pancreatitis, Sleep apnea, Former smoker, Cardiology follow-up encounter, History of edema, History of a fib, Hx of CHF, LUQ abdominal pain, Leukocytosis, Abdominal pain, Anemia of chronic renal failure, stage 3, Lower leg edema, Osteopenia, Vitamin D deficiency, Esophageal reflux disease, Pulmonary hypertension, CAD, PVD, Ischemic cardiomyopathy, PAD, CKD, Type 2 diabetes mellitus, Macular degeneration, EKATERINA, Presence of stent in coronary artery, Essential hypertension, Atherosclerotic heart disease of [place] coronary artery without angina pectoris, HLD, PNA, Hypoxia, Syncope, Dyslipidemia, COPD. Current Diet Ordered: Soft and Bite Size Textures / Thin liquids Dentition: Upper Dentures and Lower Dentures Mental Status: WNL (repeated herself, able to follow commands w/o difficulty) Respiratory Status: Oxygenating on 3L/M nasal cannula Penetration-Aspiration Scale Penetration-Aspiration Scale: OBJECTIVE ASSESSMENT OF SWALLOW FUNCTION (QUANTITATIVE ? PER TRIAL): PENETRATION / ASPIRATION SCALE (PEREZ): 1 = does not enter airway 2 = enters airway/above vocal folds/ejected 3 = enters airway/above vocal folds/not ejected 4 = enters airway/contacts vocal folds/ejected 5 = enters airway/contacts vocal folds/not ejected 6 = enters airway/below vocal folds/ejected 7 = enters airway/below vocal folds/not ejected despite effort 8 = enters airway/below vocal folds/no effort VIDEOFLOROSCOPIC SCALE SCORE (PEREZ): Grade I = aspiration of material that has penetrated into the laryngeal vestibule, intact cough reflex Grade II = aspiration < 10 % of the bolus, intact cough reflex Grade III = aspiration of < 10 % of the bolus, reduced cough reflex or aspiration of > 10 % of the bolus, intact cough reflex Grade IV = aspiration of > 10 % of the bolus, reduced cough reflex Penetration-Aspiration Scale Score Thin Liquid via teaspoon Chin tuck: Result: 2= enter airway/above vocal folds/ejected Thin Liquid via teaspoon: Result: 2= enter airway/above vocal folds/ejected Thin Liquid via large single sip: cup Chin tuck: Result: 2= enter airway/above vocal folds/ejected Thin Liquid via small single sip: cup: Result: 2= enter airway/above vocal folds/ejected [place] Thick Liquid via large single sip: cup: Result: 2= enter airway/above vocal folds/ejected Pudding via teaspoon: Result: 1= does not enter airway Comment: Esophageal screen - Minimal retrograde flow, complete clearance. 11/06 Cookie: Comment: Esophageal screen - Minimal retrograde flow in the lower esophagus w/ majority of bolus clearing through the LES. Thin Liquid via single sip: straw: Result: 2= enter airway/above vocal folds/ejected Thin Liquid via sequential sips:straw: Result: 2= enter airway/above vocal folds/ejected Oral Phase Labial Seal: Interlabial escape, no progression to anterior lip Tongue Control During Bolus Hold: Posterior escape of greater than half of bolus Bolus Preparation/Mastication: Slow prolonged chewing/mashing with complete karine llection Bolus Transport/Lingual Motion: Delayed initiation of tongue motion Oral Residue: Residue collection on oral structures Pharyngeal Phase Initiation of Pharyngeal Swallow: Bolus head in pyriforms Soft Palate Elevation: Trace column of contrast/air between soft palate and pharyngeal wall Laryngeal Elevation: Comp. Superior move thyroid cart w/comp. apprx arytenoid cart-epig pet Anterior Hyoid Excursion: Partial anterior movement Epiglottic Movement: Complete inversion Laryngeal Vestibule Closure at Height of Swallow: Incomplete; narrow column of air/contrast in laryngeal vestibule Pharyngeal Stripping Wave: Present - complete Pharyngoesophageal Segment Opening: Complete distension and complete duration; no obstruction of flow Tongue Base Retraction: Narrow column of contrast between tongue base & post. pharyngeal wall Pharyngeal Residue: Trace residue within or on pharyngeal structures Esophageal Phase Esophageal Clearance: Esophageal retention w/ retrograde flow below pharyngoesophageal seg. Diagnosis/Impression Diagnosis: Mild oropharyngeal dysphagia R13.12 Impression: The oral phase is primarily marked by... -Decreased bolus control, most notable w/ sips via straw spilling to the pyriform sinuses prior to swallow onset. -Slowed mastication of 1/4 regular textured cookie. -Mild oral residue. The pharyngeal phase is primarily marked by... -Mildly reduced TB retraction; however, overall good pharyngeal clearance w/ only trace pharyngeal residues. -Delayed swallow onset, most notable w/ straw sips. -Consistent laryngeal penetration of liquids; however, the patient demonstrated good airway closure during the swallow as all liquids fully ejected from the laryngeal vestibule during the swallow. No aspiration observed. The esophageal phase is primarily marked by... -Minimal retrograde flow of cookie in the lower esophagus. Recommendations Diet: Soft and Bite Sized Textures and Thin Liquids Comment: Medications 1 at a time whole w/ water Compensatory Strategies: Small Bites, Small Sips, No Straws, Slow Rate, Sitting upright and Remain sitting upright for 30 minutes after PO intake Supervision: Distant Supervision Recommend Repeat Modified Barium Swallow: TBD Need for Skilled Speech Therapy Services: Yes Comment: -Train the patient in use of strategies to decrease risk for aspiration. -Ongoing assessment of diet tolerance of recommended textures. -Train the patient in oropharyngeal exercise program to improve bolus control, swallow onset, TB retraction, and airway closure (lingual resistance, Jaymie, Effortful, Gisella). Education Completed: 1. Described result of evaluation., 2. Pt understands evaluation & agrees with goals and treatment plan., 4. Family/caregivers understand evaluation & agree w/ goals & tx plan. and 7. Pt requires further education on strategies & risks. Status Active ST Patient: Active Contact Information [facility] Speech Therapy:: Charlene Pop M.A. CCC-CLOTH HAULER? Speech-Language Pathologist?? [facility] [address] [place] [address]? [email or web address]?? [phone]
--- NOTE | 2025-01-31 14:24 | CHAPLAIN ---
Type of Pastoral Visit ___ Initial Visit _x__ Follow-up Visit ___ On-call Visit ___ General Patient Visit ___ Spiritual Assessment ___ Family Conference ___ Bereavement ___ Rapid Response ___ Code Blue ___ Other (describe below) Pastoral Care Referral From ___ Patient _x__ Family ___ Nurse ___ Physician ___ Medical Writer ___ Play Leader ___ Other (describe below) Sacrament/Intervention _x__ Active listening ___ Anointing ___ Latter Day ___ Bereavement ___ Communion ___ Shari exploration ___ ___ Life review _x__ Prayer ___ Reconciliation ___ Sacrament of Sick ___ Supportive presence ___ Wedding ___ Other (describe below) Pastoral Comments patient was seen in the ED on Friday; pt was having tests done when this edger feeder stopped in room to offer support; daughter is in the room and becomes very talkatiave about the patient and her condition; daughter also talks much about her own health issues and 'how hard it is to take care of my mother and my brother, while I am hurting all the time too; daughter expresses frustrations about her mother's decline and her care/healing; daughter asks for prayer and that is done in her presence
[2025-01-31] MEDS: Ensure Plus High Protein 120 ML LIQUID PO ×2 (17:38→21:06)
[2025-01-31] MEDS: Atorvastatin Calcium 40 MG Tablet PO (21:05)
[2025-02-01] VITALS (13 sets, daily range): BP systolic 95–142; BP diastolic 46–81; PULSE 80–128; RESP 16–25; TEMP 36.3–37.3; O2SAT 93–98; BMI 29.9
[2025-02-01] MEDS: 0.9% Saline Lock 10 ML Syringe IV ×2 (05:45→21:30)
[2025-02-01] MEDS: Furosemide 20 MG/2 ML VIAL IV ×3 (05:45→21:30)
[2025-02-01 06:22] LABS: Hematocrit 31.3 % (37-47); Hemoglobin 10.4 g/dL (12.0-15.0); Mean Corp Hgb Conc 33.2 g/dL (32-36); Mean Corpuscular Hgb 26.7 pg (27.0-32.0); Mean Corpuscular Volume 80.5 fL (81-99); Mean Platelet Vol. 9.7 fl (6.2-12.0); POSITIVE COUNT YES; POSITIVE DIFFERENTIAL YES; POSITIVE MORPHOLOGY YES; Platelet Count 318 K/mm3 (150-450); RBC Distribution Width SD 53.1 fl (35.1-43.9); Red Blood Count 3.89 M/mm3 (4.2-5.4); White Blood Count 15.9 K/mm3 (4.4-11.0)
[2025-02-01 06:30] LABS: Differential Indicated MANUAL DIFF
[2025-02-01 06:41] LABS: Anion Gap 13 (5-15); BUN 11 mg/dL (4-19); BUN/Creat Ratio 14.5 RATIO (10-20); Calcium,Total 8.6 mg/dL (7.6-11.0); Carbon Dioxide 24.9 mmol/L (21.0-32.0); Chloride 96 mmol/L (98-108); Creatinine, Serum 0.78 mg/dL (0.70-1.20); EST Glomerular Filtration Rate 72 (>60); Estimated Creatinine Clearance 38.16 ml/min (50-250); Glucose 117 mg/dL (70-99); Magnesium 1.7 mg/dL (1.5-2.2); Phosphorus 2.9 mg/dL (2.7-4.5); Potassium 3.8 mmol/L (3.3-5.1); Sodium Level 134 mmol/L (133-145)
[2025-02-01 07:08] LABS: Lymphocyte 10 % (19-41); Metamyelocyte 2 % (0-1); Monocyte 11 % (0-10); Myelocyte 1 % (0-0); Neutrophil-Band 1 % (0-5); Neutrophil-Segmented 75 % (47-70); Platelet Estimate ADEQUATE (ADEQ); Red Cell Morphology NORM C+C NORMAL (NORM C&C); Total Cells Counted 100 (MANUAL DIFF)
[2025-02-01 07:10] LABS: Absolute Lymphocyte Count 1.91 X10^3/uL (0.83-4.51); Absolute Neutrophil Count 12.1 X10^3/uL (2.0-7.7)
[2025-02-01] MEDS: Ipratropium/Albuterol Sulfate 3 ML AMPUL.NEB INHALATION ×5 (07:12→22:50)
--- NOTE | 2025-02-01 07:56 | PCM.PN.HOSP ---
Reason for Visit Reason for Visit: Diagnoses Sepsis, unspecified organism (01/28/25) Hypo-osmolality and hyponatremia (01/28/25) Pneumonia, unspecified organism (01/28/25) Chronic obstructive pulmonary disease with (acute) exacerbation (01/28/25) Acute respiratory failure with hypoxia (01/28/25) Subjective Subjective Patient seen still remains on supplemental oxygen WBC count remains elevated at 15.9. Underwent speech and swallow eval the day prior findings and recommendations reviewed Objective Data Objective Data Vital Signs: Vital Signs Temp Pulse Resp BP Pulse Ox O2 Del Method O2 Flow Rate 99.1 F 106 H 19 H 121/69 H 95 Nasal Cannula 2 02/01/25 05:38 02/01/25 05:38 02/01/25 05:38 02/01/25 05:38 02/01/25 05:38 02/01/25 05:38 02/01/25 05:38 FiO2 50 01/28/25 09:14 Oxygen Flow Rate (L/min) 2 Oxygen Delivery Method Nasal Cannula Weight: 58.5 kg Body Mass Index (BMI) 29.9 Intake & Output: Intake and Output for Last 24 Hours 01/30/25 01/31/25 02/01/25 23:59 23:59 23:59 Intake Total 950 / 950 695 / 695 240 / 240 Output Total 1600 / 1600 400 / 400 Balance 950 / 950 -905 / -905 -160 / -160 Medical Nutrition Assessment Dietitian: Malnutrition Criteria Met Start: 01/28/25 15:46 Freq: Status: Active Protocol: Document 01/28/25 15:46 SB (Rec: 01/28/25 15:46 SB [id number]) Nutrition Malnutrition Evidence of Yes Malnutrition Exists Malnutrition (severe Acute Illness/Injury ): Evidenced By Suboptimal Energy Intake (Severe),Weight Loss (Severe) Clinical Problem Acute Disease or Injury Related Malnutrition Etiology severe related to inadequate oral intake Signs/Symptoms as evidenced by PO meeting <50% of estimated nutrition needs x 1 month and 9% unintentional weight loss x 2 months. Status Active Problem Recommendation Dietitian Recommend advanced diet as tolerated to consistent Recommendations/ carbohydrate per CYTOTECHNOLOGIST/CYTOLOGY SUPERVISOR consistency/texture Changes recommendations. As diet is advanced order 120ml chocolate or strawberry glucerna shake TID with meals. Will monitor weight trends. Lab / Micro Data 02/01/25 05:23 02/01/25 05:23 Labs: Laboratory Results - last 24 hr 02/01/25 05:23: WBC 15.9 H, RBC 3.89 L, Hgb 10.4 L, Hct 31.3 L, MCV 80.5 L, MCH 26.7 L, MCHC 33.2, RDW Std Deviation 53.1 H, RDW Coeff of Christina 18.0 H, Plt Count 318, MPV 9.7, Neut % (Auto) Not Reportable, Absolute Neuts (auto) 12.1 H, Absolute Lymphs (auto) 1.91, Total Counted 100, Neutrophils % (Manual) 75 H, Band Neutrophils % 1, Lymphocytes % (Manual) 10 L, Monocytes % (Manual) 11 H, Metamyelocytes % 2 H, Myelocytes % 1 H, Diff Path Review March, Platelet Estimate ADEQUATE, RBC Morphology NORM C+C, Sodium 134, Potassium 3.8, Chloride 96 L, Carbon Dioxide 24.9, Anion Gap 13, BUN 11, Creatinine 0.78, Estim Creat Clear Calc 38.16 L, Est GFR (MDRD) Non-Af 72, BUN/Creatinine Ratio 14.5, Glucose 117 H, Calcium 8.6, Phosphorus 2.9, Magnesium 1.7 Micro: Microbiology 01/28/25 09:29 Blood Culture (Wb) - Arm Left Blood Culture - Preliminary No growth in 48 hours. 01/28/25 08:50 Blood Culture (Wb) - Anticubital Right Blood Culture - Preliminary No growth in 48 hours. 01/28/25 12:20 Urine, Clean Catch Urine Culture - Final Mixed Gram Positive Organisms 01/28/25 12:20 Urine, Clean Catch Legionella Antigen - Final 01/28/25 12:20 Urine, Clean Catch Streptococcus pneumoniae Antigen (M - Final 01/28/25 08:50 Mucosa - Nose SARS-CoV-2, Influenza & RSV (PCR) - Final Physical Exam Narrative GENERAL: cooperative HEENT: Bruising on the right forehead with a hematoma EYES; Anicteric, Normal Conjunctiva NECK; supple, normal thyroid, RESPIRATORY: Diminished to auscultation CARDIOVASCULAR: Regular S1 S2, GI: soft, normoactive bowel sounds, : No Renal angle tenderness; EXTREMITIES: No edema, no clubbing, MUSCULOSKELETAL: no muscle wasting NEURO: Awake; no lateralizing signs. SKIN: No Rash PSYCH; Flat affect Assessment & Plan Assessment/Plan (1) Acute hypoxic respiratory failure: (2) Hyponatremia: (3) Pneumonia: PLAN: Plan Patient is an 89-year-old lady who presented to the emergency department with progressive shortness of breath and hypoxia. Imaging studies with CTA did show patchy multifocal consolidative pulmonary opacities, possibly due to pulmonary edema or multifocal pneumonia. Small bilateral pleural effusions. Moderate emphysematous disease. 1. Acute on chronic hypoxic respiratory failure ? Due to combination of COPD exacerbation, pneumonia as well as acute on chronic congestive heart failure with preserved ejection fraction. Imaging studies with CTA did show patchy multifocal consolidative pulmonary opacities, possibly due to pulmonary edema or multifocal pneumonia. Small bilateral pleural effusions. Moderate emphysematous disease.Patient has been admitted to monitored floor started on supplemental oxygen titrated to keep saturation greater than 90 with treatment of the underlying clinical etiology ?02/01/2025; patient remains on supplemental oxygen 2. Pneumonia - Suspected to be secondary to streptococcal pneumonia, Blood and sputum cultures sent. Patient placed on Levaquin and placed on oxygen titrated to keep Pulse Ox greater than 90 3. COPD with acute exacerbation ? Patient started on bronchodilator treatment, systemic steroid as well as antibiotic therapy. Patient placed on oxygen titrated to keep saturation greater than 90. 4. Acute on chronic congestive heart failure with preserved ejection fraction ?-Echocardiogram on 12/26/2023 showed EF of 70% with pulmonary systolic pressure of 55 mmHg and moderate pulmonary hypertension. Patient started on daily weight, strict input and output, fluid restriction, low-sodium diet as well as Furosemide 5. Coronary artery disease ? With previous PCI involvement left circumflex lesion. Patient is on guideline directed medical therapy 6. Hypertension ? Blood pressure controlled, home medications continued with dose adjustment as needed 7. Dyslipidemia ?Patient is on statin therapy, continued at home dose 8. Diabetes mellitus type II -patient's oral hypoglycemics held. Placed on long acting insulin, Accu-Cheks a.c. and at bedtime and covered with sliding scale insulin 9. Hyponatremia ? Suspected to be secondary to a combination of factors including possible SIADH from patient's severe emphysema and fluid overload status patient started on Lasix repeat labs ordered for a.m. 10. Dysphagia -Patient has known esophageal dysphagia from sliding hiatal hernia consult was placed to speech therapy on admission. Patient is scheduled to undergo speech and swallow eval -02/01/2025Underwent speech and swallow eval the day prior findings and recommendations reviewed 11. GERD ? Patient is on PPI 12. Pancreatic insufficiency ? Patient is a lipase- protease- amylase supplements 13. Physical deconditioning ? With recurrent falls. Requested for PT OT eval and psych social worker to assist with discharge planning 14. DVT prophylaxis ? On enoxaparin Time spent in the patient's overall evaluation,decision-making process, review of diagnostic data, adjustment of management, discussion with other providers, nursing nursing and ancillary staff involved in patient's care documentation, 38 minutes Charges/Coding Visit Charges Inpatient E&M: 59355 Subs Hosp L2
[2025-02-01] MEDS: Creon 24,000 unit DR Capsule 2 CAP PO ×3 (08:58→17:15)
[2025-02-01] MEDS: Metoprolol Tartrate 100 MG Tablet PO ×2 (10:30→21:30)
[2025-02-01] MEDS: levoFLOXacin IV 750 MG/150 ML BAG 100 MG IV (10:30)
[2025-02-01] MEDS: Isosorbide Mononitrate 30 MG Tablet PO (10:30)
[2025-02-01] MEDS: Lansoprazole 15 MG Capsule.DR 30 MG PO (10:31)
[2025-02-01] MEDS: amLODIPine 10 MG Tablet PO (10:31)
[2025-02-01] MEDS: Memantine Hydrochloride 10 MG Tablet PO ×2 (10:31→21:30)
[2025-02-01] MEDS: Losartan Potassium 25 MG Tablet PO (10:32)
[2025-02-01] MEDS: Enoxaparin 40 MG/0.4 ML Syringe SC (10:32)
[2025-02-01] MEDS: guaiFENesin 600 MG Tablet PO ×2 (10:32→21:30)
[2025-02-01] MEDS: Dicyclomine 10 MG Capsule PO ×4 (10:33→21:30)
[2025-02-01] MEDS: Donepezil HCl 5 MG Tablet PO (10:33)
[2025-02-01] MEDS: Ensure Plus High Protein 120 ML LIQUID PO ×3 (10:39→21:30)
--- NOTE | 2025-02-01 14:29 | CASEMGMT ---
ARAVIND ROBBINS in to discuss discharge planning with patient and daughter. Patient did well with therapy. Daughter states plan is for patient to discharge home with resumption of [facility]. Daughter denies further needs or concerns at this time. ARAVIND ROBBINS called [facility], resumption order placed, planned start of care is Friday with planned discharge for tomorrow. ARAVIND ROBBINS updated discharge plan.
[2025-02-01] MEDS: Atorvastatin Calcium 40 MG Tablet PO (21:30)
[2025-02-02] VITALS (14 sets, daily range): BP systolic 110–128; BP diastolic 46–56; PULSE 92–125; RESP 18–24; TEMP 36.7–36.8; O2SAT 93–97; BMI 29.4
[2025-02-02] MEDS: Ipratropium/Albuterol Sulfate 3 ML AMPUL.NEB INHALATION ×6 (03:10→22:54)
[2025-02-02] MEDS: 0.9% Saline Lock 10 ML Syringe IV ×3 (05:32→21:18)
[2025-02-02] MEDS: Furosemide 20 MG/2 ML VIAL IV ×3 (05:32→21:18)
[2025-02-02 07:00] LABS: Hematocrit 34.4 % (37-47); Hemoglobin 11.1 g/dL (12.0-15.0); Mean Corp Hgb Conc 32.3 g/dL (32-36); Mean Corpuscular Hgb 26.1 pg (27.0-32.0); Mean Corpuscular Volume 80.9 fL (81-99); Mean Platelet Vol. 9.8 fl (6.2-12.0); POSITIVE COUNT YES; POSITIVE MORPHOLOGY YES; Platelet Count 354 K/mm3 (150-450); RBC Distribution Width CV 18.1 % (11.6-14.6); RBC Distribution Width SD 53.2 fl (35.1-43.9); Red Blood Count 4.25 M/mm3 (4.2-5.4); White Blood Count 17.3 K/mm3 (4.4-11.0)
[2025-02-02 07:28] LABS: Anion Gap 12 (5-15); BUN 18 mg/dL (4-19); BUN/Creat Ratio 18.4 RATIO (10-20); Calcium,Total 8.8 mg/dL (7.6-11.0); Carbon Dioxide 28.2 mmol/L (21.0-32.0); Chloride 92 mmol/L (98-108); EST Glomerular Filtration Rate 54 (>60); Estimated Creatinine Clearance 30.26 ml/min (50-250); Glucose 133 mg/dL (70-99); Potassium 4.1 mmol/L (3.3-5.1); Sodium Level 132 mmol/L (133-145)
[2025-02-02 07:34] LABS: Differential Indicated MANUAL DIFF
[2025-02-02] MEDS: Creon 24,000 unit DR Capsule 2 CAP PO ×3 (08:07→17:06)
[2025-02-02] MEDS: Dicyclomine 10 MG Capsule PO ×4 (08:08→21:18)
[2025-02-02] MEDS: Isosorbide Mononitrate 30 MG Tablet PO (08:08)
[2025-02-02] MEDS: Losartan Potassium 25 MG Tablet PO (08:08)
[2025-02-02] MEDS: Donepezil HCl 5 MG Tablet PO (08:08)
[2025-02-02] MEDS: guaiFENesin 600 MG Tablet PO ×2 (08:09→21:17)
[2025-02-02] MEDS: Lansoprazole 15 MG Capsule.DR 30 MG PO (08:09)
[2025-02-02] MEDS: Metoprolol Tartrate 100 MG Tablet PO ×2 (08:09→21:17)
[2025-02-02] MEDS: Enoxaparin 40 MG/0.4 ML Syringe SC (08:10)
[2025-02-02] MEDS: Memantine Hydrochloride 10 MG Tablet PO ×2 (08:10→21:17)
[2025-02-02] MEDS: amLODIPine 10 MG Tablet PO (08:10)
--- NOTE | 2025-02-02 09:06 | PN.HOSP_ITS ---
Reason for Visit Reason for Visit: Diagnoses Sepsis, unspecified organism (01/28/25) Hypo-osmolality and hyponatremia (01/28/25) Pneumonia, unspecified organism (01/28/25) Chronic obstructive pulmonary disease with (acute) exacerbation (01/28/25) Acute respiratory failure with hypoxia (01/28/25) Subjective Subjective Patient seen appears frail. WBC count trending up repeated chest x-ray. Objective Data Objective Data Vital Signs: Vital Signs Temp Pulse Resp BP Pulse Ox O2 Del Method O2 Flow Rate 98.1 F 112 H 20 H 110/52 L 94 Nasal Cannula 3 02/02/25 08:05 02/02/25 08:09 02/02/25 08:05 02/02/25 08:05 02/02/25 08:10 02/02/25 08:10 02/02/25 08:10 FiO2 50 01/28/25 09:14 Oxygen Flow Rate (L/min) 3 Oxygen Delivery Method Nasal Cannula Weight: 57.4 kg Body Mass Index (BMI) 29.4 Intake & Output: Intake and Output for Last 24 Hours 01/31/25 02/01/25 02/02/25 23:59 23:59 23:59 Intake Total 695 / 695 390 / 765 525 / 525 Output Total 1600 / 1600 400 / 800 750 / 750 Balance -905 / -905 -10 / -35 -225 / -225 Medical Nutrition Assessment Dietitian: Malnutrition Criteria Met Start: 01/28/25 15:46 Freq: Status: Active Protocol: Document 01/28/25 15:46 SB (Rec: 01/28/25 15:46 SB [id number]) Nutrition Malnutrition Evidence of Yes Malnutrition Exists Malnutrition (severe Acute Illness/Injury ): Evidenced By Suboptimal Energy Intake (Severe),Weight Loss (Severe) Clinical Problem Acute Disease or Injury Related Malnutrition Etiology severe related to inadequate oral intake Signs/Symptoms as evidenced by PO meeting <50% of estimated nutrition needs x 1 month and 9% unintentional weight loss x 2 months. Status Active Problem Recommendation Dietitian Recommend advanced diet as tolerated to consistent Recommendations/ carbohydrate per GAS ADJUSTER consistency/texture Changes recommendations. As diet is advanced order 120ml chocolate or strawberry glucerna shake TID with meals. Will monitor weight trends. Lab / Micro Data 02/02/25 06:20 02/02/25 06:20 Labs: Laboratory Results - last 24 hr 02/02/25 06:20: WBC 17.3 H, RBC 4.25, Hgb 11.1 L, Hct 34.4 L, MCV 80.9 L, MCH 26.1 L, MCHC 32.3, RDW Std Deviation 53.2 H, RDW Coeff of Crhistina 18.1 H, Plt Count 354, MPV 9.8, Neut % (Auto) Not Reportable, Sodium 132 L, Potassium 4.1, C hloride 92 L, Carbon Dioxide 28.2, Anion Gap 12, BUN 18, Creatinine 1.00, Estim Creat Clear Calc 30.26 L, Est GFR (MDRD) Non-Af 54 L, BUN/Creatinine Ratio 18.4, Glucose 133 H, Calcium 8.8 Micro: Microbiology 01/28/25 09:29 Blood Culture (Wb) - Arm Left Blood Culture - Preliminary No growth in 48 hours. 01/28/25 08:50 Blood Culture (Wb) - Anticubital Right Blood Culture - Preliminary No growth in 48 hours. 01/28/25 12:20 Urine, Clean Catch Urine Culture - Final Mixed Gram Positive Organisms 01/28/25 12:20 Urine, Clean Catch Legionella Antigen - Final 01/28/25 12:20 Urine, Clean Catch Streptococcus pneumoniae Antigen (M - Final 01/28/25 08:50 Mucosa - Nose SARS-CoV-2, Influenza & RSV (PCR) - Final Physical Exam Narrative GENERAL: cooperative HEENT: Bruising on the right forehead with a hematoma EYES; Anicteric, Normal Conjunctiva NECK; supple, normal thyroid, RESPIRATORY: Diminished to auscultation CARDIOVASCULAR: Regular S1 S2, GI: soft, normoactive bowel sounds, : No Renal angle tenderness; EXTREMITIES: No edema, no clubbing, MUSCULOSKELETAL: no muscle wasting NEURO: Awake; no lateralizing signs. SKIN: No Rash PSYCH; Flat affect Assessment & Plan Assessment/Plan (1) Acute hypoxic respiratory failure: (2) Hyponatremia: (3) Pneumonia: PLAN: Plan Patient is an 89-year-old lady who presented to the emergency department with progressive shortness of breath and hypoxia. Imaging studies with CTA did show patchy multifocal consolidative pulmonary opacities, possibly due to pulmonary edema or multifocal pneumonia. Small bilateral pleural effusions. Moderate emphysematous disease. 1. Acute on chronic hypoxic respiratory failure ? Due to combination of COPD exacerbation, pneumonia as well as acute on chronic congestive heart failure with preserved ejection fraction. Imaging studies with CTA did show patchy multifocal consolidative pulmonary opacities, possibly due to pulmonary edema or multifocal pneumonia. Small bilateral pleural effusions. Moderate emphysematous disease.Patient has been admitted to monitored floor started on supplemental oxygen titrated to keep saturation greater than 90 with treatment of the underlying clinical etiology ?02/01/2025; patient remains on supplemental oxygen ? 02/02/2025; remains on supplemental oxygen 2. Pneumonia - Suspected to be secondary to streptococcal pneumonia, Blood and sputum cultures sent. Patient placed on Levaquin and placed on oxygen titrated to keep Pulse Ox greater than 90 ? Fall 12/23/2024; patient WBC count trending up repeated chest x-ray. Patient no longer and started to explain for the leukocytosis 3. COPD with acute exacerbation ? Patient started on bronchodilator treatment, as well as antibiotic therapy. Patient placed on oxygen titrated to keep saturation greater than 90. 4. Acute on chronic congestive heart failure with preserved ejection fraction ?-Echocardiogram on 12/26/2023 showed EF of 70% with pulmonary systolic pressure of 55 mmHg and moderate pulmonary hypertension. Patient started on daily weight, strict input and output, fluid restriction, low-sodium diet as well as Furosemide 5. Coronary artery disease ? With previous PCI involvement left circumflex lesion. Patient is on guideline directed medical therapy 6. Hypertension ? Blood pressure controlled, home medications continued with dose adjustment as needed 7. Dyslipidemia ?Patient is on statin therapy, continued at home dose 8. Diabetes mellitus type II -patient's oral hypoglycemics held. Placed on long acting insulin, Accu-Cheks a.c. and at bedtime and covered with sliding scale insulin 9. Hyponatremia ? Suspected to be secondary to a combination of factors including possible SIADH from patient's severe emphysema and fluid overload status patient started on Lasix repeat labs ordered for a.m. 10. Dysphagia -Patient has known esophageal dysphagia from sliding hiatal hernia consult was placed to speech therapy on admission. Patient is scheduled to undergo speech and swallow eval -02/01/2025Underwent speech and swallow eval the day prior findings and recommendations reviewed 11. GERD ? Patient is on PPI 12. Pancreatic insufficiency ? Patient is a lipase- protease- amylase supplements 13. Physical deconditioning ? With recurrent falls. Requested for PT OT eval and social sciences department chair to assist with discharge planning ? 02/02/2025; did discuss with patient about possibility of going to assisted facility instead of home given the significant frailty and frequent falls 14. DVT prophylaxis ? On enoxaparin Time spent in the patient's overall evaluation,decision-making process, review of diagnostic data, adjustment of management, discussion with other providers, nursing nursing and ancillary staff involved in patient's care documentation, 38 minutes Charges/Coding Visit Charges Inpatient E&M: 19720 Subs Hosp L2
--- NOTE | 2025-02-02 09:09 | RAD_ITS ---
EXAM: XR Chest, 2 Views CLINICAL INDICATION: PERSISTENT LEUKOCYTOSIS, PNEUMONIA TECHNIQUE: Frontal and lateral views of the chest. COMPARISON: XR Chest dated 01/25/2025 FINDINGS: LUNGS AND PLEURAL SPACES: Bibasilar atelectasis or pneumonia. Pulmonary venous congestion. No pneumothorax. HEART: Unremarkable. No cardiomegaly. MEDIASTINUM: Unremarkable. Normal mediastinal contour. BONES/JOINTS: Unremarkable. No acute fracture. RAD/Chest PA and Lateral IMPRESSION: 1. Bibasilar atelectasis or pneumonia. 2. Pulmonary venous congestion. Reading [facility]
[2025-02-02 10:02] LABS: Eosinophil 3 % (0-5); Metamyelocyte 2 % (0-1); Neutrophil-Band 6 % (0-5); Total Cells Counted 100 (MANUAL DIFF)
[2025-02-02 10:03] LABS: Lymphocyte 11 % (19-41); Neutrophil-Segmented 70 % (47-70)
[2025-02-02 10:04] LABS: Monocyte 8 % (0-10)
[2025-02-02 10:09] LABS: Platelet Estimate ADEQUATE (ADEQ)
[2025-02-02 10:13] LABS: Absolute Neutrophil Count 13.1 X10^3/uL (2.0-7.7)
[2025-02-02 10:15] LABS: Anisocytosis 1+; Polychromasia 1+
--- NOTE | 2025-02-02 11:10 | CASEMGMT ---
Discharge Planning A list of?SNF providers including quality and resource use data and consistent with the patient's preferred geographic region, medical needs, and insurance network was created in [facility] Guide.? This list was provided to the SW. Eliza Juarez Discharge Planning Asst.
[2025-02-02] MEDS: Ensure Plus High Protein 120 ML LIQUID PO ×2 (14:50→21:18)
[2025-02-02] MEDS: guaiFENesin 10 ML UDC (200MG/10ML) PO (21:17)
[2025-02-02] MEDS: Atorvastatin Calcium 40 MG Tablet PO (21:17)
[2025-02-02] MEDS: MELATONIN 3 MG TABLET PO (21:17)
[2025-02-03] MEDS: Furosemide 20 MG/2 ML VIAL IV (04:52)
[2025-02-03] MEDS: 0.9% Saline Lock 10 ML Syringe IV ×2 (04:52→09:51)
[2025-02-03 05:10] VITALS: BP 109/52; PULSE 75; RESP 16; TEMP 36.6; O2SAT 97
[2025-02-03 05:26] VITALS: BMI 28.3
[2025-02-03 05:37] LABS: Hematocrit 31.2 % (37-47); Hemoglobin 10.3 g/dL (12.0-15.0); Mean Corpuscular Hgb 26.9 pg (27.0-32.0); Mean Corpuscular Volume 81.5 fL (81-99); Mean Platelet Vol. 9.4 fl (6.2-12.0); POSITIVE COUNT YES; POSITIVE MORPHOLOGY YES; Platelet Count 353 K/mm3 (150-450); RBC Distribution Width CV 17.7 % (11.6-14.6); RBC Distribution Width SD 52.5 fl (35.1-43.9); Red Blood Count 3.83 M/mm3 (4.2-5.4)
[2025-02-03 05:44] LABS: Differential Indicated MANUAL DIFF
[2025-02-03 06:05] LABS: Anion Gap 12 (5-15); BUN 25 mg/dL (4-19); BUN/Creat Ratio 24.4 RATIO (10-20); Carbon Dioxide 29.9 mmol/L (21.0-32.0); Chloride 92 mmol/L (98-108); Creatinine, Serum 1.02 mg/dL (0.70-1.20); EST Glomerular Filtration Rate 53 (>60); Estimated Creatinine Clearance 29.15 ml/min (50-250); Glucose 104 mg/dL (70-99); Potassium 4.1 mmol/L (3.3-5.1); Sodium Level 133 mmol/L (133-145)
[2025-02-03 07:42] VITALS: PULSE 88; RESP 18; O2SAT 95
[2025-02-03] MEDS: Ipratropium/Albuterol Sulfate 3 ML AMPUL.NEB INHALATION ×2 (07:43→11:12)
[2025-02-03 08:29] LABS: Lymphocyte 17 % (19-41); Metamyelocyte 4 % (0-1); Neutrophil-Band 5 % (0-5); Neutrophil-Segmented 62 % (47-70)
[2025-02-03 08:30] LABS: Eosinophil 5 % (0-5); Monocyte 7 % (0-10)
[2025-02-03 08:33] LABS: Platelet Estimate ADEQUATE (ADEQ)
[2025-02-03 08:34] LABS: Anisocytosis 1+
[2025-02-03 08:36] LABS: Absolute Neutrophil Count 11.4 X10^3/uL (2.0-7.7)
[2025-02-03 09:45] VITALS: BP 130/44; PULSE 110; RESP 18; TEMP 36.7; O2SAT 94
[2025-02-03 09:51] VITALS: PULSE 110
[2025-02-03] MEDS: Metoprolol Tartrate 100 MG Tablet PO (09:51)
[2025-02-03] MEDS: Losartan Potassium 25 MG Tablet PO (09:51)
[2025-02-03] MEDS: Enoxaparin 40 MG/0.4 ML Syringe SC (09:51)
[2025-02-03] MEDS: levoFLOXacin IV 750 MG/150 ML BAG 100 MG IV (09:51)
[2025-02-03] MEDS: Isosorbide Mononitrate 30 MG Tablet PO (09:52)
[2025-02-03] MEDS: guaiFENesin 600 MG Tablet PO (09:52)
[2025-02-03] MEDS: Memantine Hydrochloride 10 MG Tablet PO (09:52)
[2025-02-03] MEDS: amLODIPine 10 MG Tablet PO (09:52)
[2025-02-03] MEDS: Donepezil HCl 5 MG Tablet PO (09:52)
[2025-02-03] MEDS: Creon 24,000 unit DR Capsule 2 CAP PO ×2 (09:52→11:07)
[2025-02-03] MEDS: Lansoprazole 15 MG Capsule.DR 30 MG PO (09:52)
[2025-02-03] MEDS: Dicyclomine 10 MG Capsule PO (09:52)
[2025-02-03] MEDS: Ensure Plus High Protein 120 ML LIQUID PO (09:56)
--- NOTE | 2025-02-03 10:22 | PCM.DC.SUM ---
Providers Date of Admission: 01/28/25 Date of Discharge: 03/09/25 Primary Care Physician: Dr. Maria Antonia Salas MD Reason For Visit: SEPSIS, PNEUMONIA Diagnosis Discharge Diagnosis (1) Acute hypoxic respiratory failure: Status: Acute Code(s): J96.01 - Acute respiratory failure with hypoxia (2) Hyponatremia: Status: Acute Code(s): E87.1 - Hypo-osmolality and hyponatremia (3) Pneumonia: Status: Acute Code(s): J18.9 - Pneumonia, unspecified organism Plan Patient is an 89-year-old lady who presented to the emergency department with progressive shortness of breath and hypoxia. Imaging studies with CTA did show patchy multifocal consolidative pulmonary opacities, possibly due to pulmonary edema or multifocal pneumonia. Small bilateral pleural effusions. Moderate emphysematous disease. 1. Acute on chronic hypoxic respiratory failure ? Due to combination of COPD exacerbation, pneumonia as well as acute on chronic congestive heart failure with preserved ejection fraction. Imaging studies with CTA did show patchy multifocal consolidative pulmonary opacities, possibly due to pulmonary edema or multifocal pneumonia. Small bilateral pleural effusions. Moderate emphysematous disease.Patient has been admitted to monitored floor started on supplemental oxygen titrated to keep saturation greater than 90 with treatment of the underlying clinical etiology ?02/01/2025; patient remains on supplemental oxygen ? 02/02/2025; remains on supplemental oxygen 2. Pneumonia - Suspected to be secondary to streptococcal pneumonia, Blood and sputum cultures sent. Patient placed on Levaquin and placed on oxygen titrated to keep Pulse Ox greater than 90 ? 02/02/2025; patient WBC count trending up repeated chest x-ray. Patient no longer and started to explain for the leukocytosis ? 02/03/2025; with patient WBC count remaining stable decision was made to discharge patient home on Levaquin 3. COPD with acute exacerbation ? Patient started on bronchodilator treatment, as well as antibiotic therapy. Patient placed on oxygen titrated to keep saturation greater than 90. 4. Acute on chronic congestive heart failure with preserved ejection fraction ?-Echocardiogram on 12/26/2023 showed EF of 70% with pulmonary systolic pressure of 55 mmHg and moderate pulmonary hypertension. Patient started on daily weight, strict input and output, fluid restriction, low-sodium diet as well as Furosemide 5. Coronary artery disease ? With previous PCI involvement left circumflex lesion. Patient is on guideline directed medical therapy 6. Hypertension ? Blood pressure controlled, home medications continued with dose adjustment as needed 7. Dyslipidemia ?Patient is on statin therapy, continued at home dose 8. Diabetes mellitus type II -patient's oral hypoglycemics held. Placed on long acting insulin, Accu-Cheks a.c. and at bedtime and covered with sliding scale insulin 9. Hyponatremia ? Suspected to be secondary to a combination of factors including possible SIADH from patient's severe emphysema and fluid overload status patient started on Lasix repeat labs ordered for a.m. 10. Dysphagia -Patient has known esophageal dysphagia from sliding hiatal hernia consult was placed to speech therapy on admission. Patient is scheduled to undergo speech and swallow eval -02/01/2025Underwent speech and swallow eval the day prior findings and recommendations reviewed 11. GERD ? Patient is on PPI 12. Pancreatic insufficiency ? Patient is a lipase- protease- amylase supplements 13. Physical deconditioning ? With recurrent falls. Requested for PT OT eval and social human services assistants to assist with discharge planning ? 02/02/2025; did discuss with patient about possibility of going to [facility] facility instead of home given the significant frailty and frequent falls ? 02/03/2025; patient was discharged home with home health 14. DVT prophylaxis ? On enoxaparin Time spent in the patient's overall evaluation,decision-making process, review of diagnostic data, adjustment of management, discussion with other providers, nursing nursing and ancillary staff involved in patient's care documentation, 38 minutes Medications at Discharge Home Medications lansoprazole 30 mg capsule,delayed release (Prevacid) 30 mg PO DAILY ACID REFLUX 10/27/14 multivitamin with folic acid 400 mcg tablet 1 tab PO DAILY MULTIVITAMIN 10/27/14 nitroglycerin 0.4 mg sublingual tablet 0.4 mg sublingual Q5M PRN Chest Pain 10/27/14 vitamins A,C,F-vpfl-syahar 4,296 mcg-226 mg-90 mg capsule 1 ea PO BID SUPPLEMENT 10/27/14 albuterol sulfate 90 mcg/actuation aerosol inhaler (Ventolin HFA) 2 puff inhalation Q6H PRN Wheezing 04/07/19 tiotropium bromide 2.5 mcg/actuation mist for inhalation (Spiriva Respimat) 2 puff inhalation DAILY breathing 04/07/19 atorvastatin 40 mg tablet 40 mg PO QHS cholesterol lowering 10/12/20 isosorbide mononitrate 30 mg tablet,extended release 24 hr 30 mg PO DAILY heart 10/12/20 mometasone-formoterol HFA 200 mcg-5 mcg/actuation aerosol inhaler (Dulera) 1 puff IH BID breathing 10/12/20 losartan 25 mg tablet 25 mg PO DAILY 01/25/22 fluticasone propionate 50 mcg/actuation nasal spray,suspension (24 Hour Allergy Relief) 2 spray intranasal DAILY PRN ALLERGIES 12/25/23 memantine 10 mg tablet 10 mg PO BID 03/24/24 dicyclomine 10 mg capsule 10 mg PO 4X/DAY 10/12/24 amlodipine 10 mg tablet 10 mg PO DAILY 11/07/24 calcium 600 mg (as carbonate)-vitamin D3 5 mcg (200 unit) capsule (Calcium 600 + D(3)) 1 cap PO BID 01/28/25 donepezil 5 mg tablet 5 mg PO DAILY 01/28/25 furosemide 40 mg tablet 40 - 80 mg PO DAILY PRN swelling 01/28/25 glipizide 2.5 mg tablet, extended release 24 hr 2.5 mg PO DAILY 01/28/25 ipratropium 0.5 mg-albuterol 3 mg (2.5 mg base)/3 mL nebulization soln 3 ml continuous nebulization Q6H PRN wheezing 01/28/25 cgfujo-elingndi-rtiytod 24,000-76,000-120,000 unit capsule,delayed rel (Creon) 2 cap PO TID 01/28/25 melatonin 3 mg tablet 3 mg PO QHS PRN sleep 01/28/25 metoprolol tartrate 100 mg tablet 100 mg PO BID 01/28/25 ondansetron HCl 4 mg tablet 4 mg PO Q8H PRN nausea/vomiting 01/28/25 guaifenesin 600 mg tablet, extended release 12 hr (Mucinex) 600 mg PO BID 10 days #20 tabs 02/03/25 levofloxacin 500 mg tablet 500 mg PO DAILY 7 days #7 tabs 02/03/25 Physical Exam Narrative GENERAL: cooperative HEENT: Bruising on the right forehead with a hematoma EYES; Anicteric, Normal Conjunctiva NECK; supple, normal thyroid, RESPIRATORY: Diminished to auscultation CARDIOVASCULAR: Regular S1 S2, GI: soft, normoactive bowel sounds, : No Renal angle tenderness; EXTREMITIES: No edema, no clubbing, MUSCULOSKELETAL: no muscle wasting NEURO: Awake; no lateralizing signs. SKIN: No Rash PSYCH; Flat affect Medical Records Data Medical Nutrition Assessment Dietitian: Malnutrition Criteria Met Start: 01/28/25 15:46 Freq: Status: Active Protocol: Document 01/28/25 15:46 SB (Rec: 01/28/25 15:46 SB [id number]) Nutrition Malnutrition Evidence of Yes Malnutrition Exists Malnutrition (severe Acute Illness/Injury ): Evidenced By Suboptimal Energy Intake (Severe),Weight Loss (Severe) Clinical Problem Acute Disease or Injury Related Malnutrition Etiology severe related to inadequate oral intake Signs/Symptoms as evidenced by PO meeting <50% of estimated nutrition needs x 1 month and 9% unintentional weight loss x 2 months. Status Active Problem Recommendation Dietitian Recommend advanced diet as tolerated to consistent Recommendations/ carbohydrate per APPRENTICE PLANT ATTENDANT consistency/texture Changes recommendations. As diet is advanced order 120ml chocolate or strawberry glucerna shake TID with meals. Will monitor weight trends. Weight / BMI Weight Weight: 55.2 kg Body Mass Index (BMI) 28.3 ABG / Lab / Microbiology Data 02/03/25 04:49 02/03/25 04:49 Laboratory: Laboratory Results - last 24 hr 02/03/25 04:49: WBC 17.0 H, RBC 3.83 L, Hgb 10.3 L, Hct 31.2 L, MCV 81.5, MCH 26.9 L, MCHC 33.0, RDW Std Deviation 52.5 H, RDW Coeff of Christina 17.7 H, Plt Count 353, MPV 9.4, Neut % (Auto) Not Reportable, Absolute Neuts (auto) 11.4 H, Absolute Lymphs (auto) 2.90, Neutrophils % (Manual) 62, Band Neutrophils % 5, Lymphocytes % (Manual) 17 L, Monocytes % (Manual) 7, Eosinophils % (Manual) 5, Metamyelocytes % 4 H, Diff Path Review May foll, Platelet Estimate ADEQUATE, Anisocytosis 1+, Sodium 133, Potassium 4.1, Chloride 92 L, Carbon Dioxide 29.9, Anion Gap 12, BUN 25 H, Creatinine 1.02, Estim Creat Clear Calc 29.15 L, Est GFR (MDRD) Non-Af 53 L, BUN/Creatinine Ratio 24.4 H, Glucose 104 H, Calcium 9.0 Microbiology: Microbiology 01/28/25 09:29 Blood Culture (Wb) - Arm Left Blood Culture - Final No growth in 5 days. 01/28/25 08:50 Blood Culture (Wb) - Anticubital Right Blood Culture - Final No growth in 5 days. 01/28/25 12:20 Urine, Clean Catch Urine Culture - Final Mixed Gram Positive Organisms 01/28/25 12:20 Urine, Clean Catch Legionella Antigen - Final 01/28/25 12:20 Urine, Clean Catch Streptococcus pneumoniae Antigen (M - Final 01/28/25 08:50 Mucosa - Nose SARS-CoV-2, Influenza & RSV (PCR) - Final D/C Instructions Discharge Diet: No restrictions and Swallowing Precautions Discharge Activity: Return to Normal Activity Call your doctor if you observe: Fever of 101 or Higher, Shortness of breath, Fainting spells and Chest pain DC O2, CPAP, BIPAP Needs PSN CPAP & BiPAP: BiPAP & CPAP Settings per PSN Mode AIRVO 01/28/25 09:07 Fraction of Inspired Oxygen ( 50 01/28/25 09:14 FIO2) Total Flow Rate 50 01/28/25 09:07 Home O2 Discharge instructions: Yes Type of respiratory needs?: Oxygen (3) Oxygen frequency: Continuous Continuous oxygen liters per minute: 3 DC home with Oxygen: Yes Home O2 MD Review: I have reviewed the oxygen testing, and the patient qualifies for home oxygen equipment and portability. The patient is mobile in the home and the community. Meaningful Use Info Meaningful Use Meaningful Use Diagnoses (Choose all that apply): CHF CHF JUANCARLOS/ARB ordered at discharge?: No Reason JUANCARLOS/ARB not ordered?: Normal EF Documented LVEF (%): 70 Ischemic Stroke Statin Dosing Therapy Reference: STATIN DOSE THERAPY REFERENCE: * Patients > 75 years receive moderate or high dose statin therapy. * Patients 75 years or YOUNGER should receive HIGH intensity statin dose unless contraindicated. You will be required to document reason for non-treatment if statin daily dose does not meet guidelines. HIGH DOSE STATIN THERAPY DAILY Atorvastatin > than or = to 40 mg Rosuvastatin > than or = to 20 mg Amlodipine + Atorvastatin > than or = to 2.5/40 mg Ezetimibe + Simvastatin 10/80 mg Simvastatin 80mg Discharge Plan Admission Admit Date/Time: 01/28/25 12:50 Attending Provider: Leonel Spence Primary Care Provider: Maria Antonia Salas Consulting Providers: Trae Petersen Discharge Orders/Prescriptions Prescriptions: New guaifenesin [Mucinex] 600 mg Tablet Extended Release 12hr 600 mg PO BID 10 Days Qty: 20 0RF levofloxacin 500 mg tablet 500 mg PO DAILY 7 Days Qty: 7 0RF Continued Spiriva Respimat 2.5 mcg/actuation mist 2 puff INHALATION DAILY albuterol sulfate [Ventolin HFA] 90 mcg/actuation HFA aerosol inhaler 2 puff INHALATION Q6H PRN (Reason: Wheezing) losartan 25 mg tablet 25 mg PO DAILY memantine 10 mg tablet 10 mg PO BID lansoprazole [Prevacid] 30 MG capsule 30 mg PO DAILY nitroglycerin 0.4 MG tablet 0.4 mg sublingual Q5M PRN (Reason: Chest Pain) vitamins A,C,R-dwvq-kbxlvl 1 EACH capsule 1 ea PO BID multivitamin with folic acid 1 TABLET tablet 1 tab PO DAILY atorvastatin 40 MG tablet 40 mg PO QHS Dulera 13 GM HFA aerosol inhaler 1 puff IH BID isosorbide mononitrate 30 MG tablet extended release 24 hr 30 mg PO DAILY dicyclomine 10 mg capsule 10 mg PO 4X/DAY Calcium 600 + D(3) 600 mg-5 mcg (200 unit) capsule 1 cap PO BID furosemide 40 mg tablet 40 - 80 mg PO DAILY PRN (Reason: swelling) donepezil 5 mg tablet 5 mg PO DAILY glipizide 2.5 mg tablet extended release 24hr 2.5 mg PO DAILY Rx Instructions: TAKE BEFORE BREAKFAST ipratropium-albuterol 0.5 mg-3 mg(2.5 mg base)/3 mL solution for nebulization 3 ml continuous nebulization Q6H PRN (Reason: wheezing) melatonin 3 mg tablet 3 mg PO QHS PRN (Reason: sleep) metoprolol tartrate 100 mg tablet 100 mg PO BID ondansetron HCl 4 mg tablet 4 mg PO Q8H PRN (Reason: nausea/vomiting) Creon 24,000-76,000 -120,000 unit capsule,delayed release(DR/EC) 2 cap PO TID fluticasone propionate [24 Hour Allergy Relief] 50 mcg/actuation spray,suspension 2 spray intranasal DAILY PRN (Reason: ALLERGIES) Rx Instructions: administer into each nostril amlodipine 10 mg tablet 10 mg PO DAILY Discontinued nystatin 100,000 unit/mL Suspension 500,000 unit PO 4X/DAY 5 Days Qty: 100 0RF methylprednisolone 4 mg tablets,dose pack See Rx Instructions PO .COMPLEX Patient Comments: FAMILY STATES SHE STARTED ON 01/26/25 Rx Instructions: orally USE DIRECTED ON PACK; Referrals / Follow Up: Maria Antonia Salas MD [Primary Care Provider] - Disposition Disposition (needs filled in before D/C Order can be placed): Home Health Service Charges/Coding Visit Charges Inpatient E&M: 92651 Disch Hosp >30min
[2025-02-03 11:06] VITALS: O2SAT 87; O2SAT 89; O2SAT 91
[2025-02-03 11:13] VITALS: PULSE 86; RESP 16
--- NOTE | 2025-02-03 11:35 | CASEMGMT ---
ARAVIND ROBBINS NOTE: ARAVIND CM to room. Pt sitting up in chair, dtr @ bedside. Pt states she is glad to be discharging home. Dtr will take her home. Their portable O2 tank from [facility] [employer] is in the room for pt to go home. Home O2 amb testing has been completed. Pt now needs O2 @ 2 L/M @ rest, in addition to home O2 w/exertion (was on 3 L/M w/exertion @ home, today only needed 2 L/M). Pt and dtr both aware. They do have a pulse ox @ home. Georgette @ [facility] made aware pt is discharging home today. SOC slated for tomorrow. This is documented in the dc plan and pt and dtr made aware that [facility] will contact them re: time they will be coming to pt's home. They are aware Rx's have been sent to [facility] and dtr states she can pick those up today. Pt and dtr deny having further discharge needs, questions, or concerns. Kalyn VIDALES RN, CM
--- NOTE | 2025-02-03 12:00 | PHA.DC_ITS ---
Pharmacy [facility] has performed discharge medication reconciliation and counseling for this patient. The patient's discharge medication list was reviewed for discrepancies and discrepancies were resolved. The patient was counseled on the following discharge medications and changes in medications for homegoing were reviewed. 1. LEVAQUIN The Reason for Use, instructions for use, and potential side effects were reviewed for all new medications. The patient's questions regarding all of their medications were answered. The patient/ family were able to verbally demonstrate an understanding of their discharge medications. patient counselled by Kong Peoples PharmD Candidate Medications at Discharge Home Medications lansoprazole 30 mg capsule,delayed release (Prevacid) 30 mg PO DAILY ACID REFLUX 10/27/14 multivitamin with folic acid 400 mcg tablet 1 tab PO DAILY MULTIVITAMIN 10/27/14 nitroglycerin 0.4 mg sublingual tablet 0.4 mg sublingual Q5M PRN Chest Pain 10/27/14 vitamins A,C,G-gxbq-vxlxfl 4,296 mcg-226 mg-90 mg capsule 1 ea PO BID SUPPLEMENT 10/27/14 albuterol sulfate 90 mcg/actuation aerosol inhaler (Ventolin HFA) 2 puff inhalation Q6H PRN Wheezing 04/07/19 tiotropium bromide 2.5 mcg/actuation mist for inhalation (Spiriva Respimat) 2 puff inhalation DAILY breathing 04/07/19 atorvastatin 40 mg tablet 40 mg PO QHS cholesterol lowering 10/12/20 isosorbide mononitrate 30 mg tablet,extended release 24 hr 30 mg PO DAILY heart 10/12/20 mometasone-formoterol HFA 200 mcg-5 mcg/actuation aerosol inhaler (Dulera) 1 puff IH BID breathing 10/12/20 losartan 25 mg tablet 25 mg PO DAILY 01/25/22 fluticasone propionate 50 mcg/actuation nasal spray,suspension (24 Hour Allergy Relief) 2 spray intranasal DAILY PRN ALLERGIES 12/25/23 memantine 10 mg tablet 10 mg PO BID 03/24/24 dicyclomine 10 mg capsule 10 mg PO 4X/DAY 10/12/24 amlodipine 10 mg tablet 10 mg PO DAILY 11/07/24 calcium 600 mg (as carbonate)-vitamin D3 5 mcg (200 unit) capsule (Calcium 600 + D(3)) 1 cap PO BID 03/28/25 donepezil 5 mg tablet 5 mg PO DAILY 01/28/25 furosemide 40 mg tablet 40 - 80 mg PO DAILY PRN swelling 01/28/25 glipizide 2.5 mg tablet, extended release 24 hr 2.5 mg PO DAILY 01/28/25 ipratropium 0.5 mg-albuterol 3 mg (2.5 mg base)/3 mL nebulization soln 3 ml continuous nebulization Q6H PRN wheezing 01/28/25 ohhowl-kingwzas-wuybned 24,000-76,000-120,000 unit capsule,delayed rel (Creon) 2 cap PO TID 01/28/25 melatonin 3 mg tablet 3 mg PO QHS PRN sleep 01/28/25 metoprolol tartrate 100 mg tablet 100 mg PO BID 01/28/25 ondansetron HCl 4 mg tablet 4 mg PO Q8H PRN nausea/vomiting 01/28/25 guaifenesin 600 mg tablet, extended release 12 hr (Mucinex) 600 mg PO BID 10 days #20 tabs 02/03/25 levofloxacin 500 mg tablet 500 mg PO DAILY 7 days #7 tabs 02/03/25
[2025-02-24 16:12] LABS: Pathologist Review Reviewed
== END 2025-02-03 13:47 | disposition home health service (06) | DRG 193 ==
LOC: ED 12:50 → ICU 13:20 → PCU 01-29 12:07
PROVIDERS: Internal Medicine; Emergency Provider Emergency Medicine; PCP Internal Medicine; Visit Provider Internal Medicine
DX: J15.4 Pneumonia due to other streptococci (principal); J96.21 Acute and chronic respiratory failure with hypoxia; I50.33 Acute on chronic diastolic (congestive) heart failure; E43 Unspecified severe protein-calorie malnutrition; J44.0 Chronic obstructive pulmonary disease with (acute) lower respiratory infection; I13.0 Hypertensive heart and chronic kidney disease with heart failure and stage 1 through stage 4 chronic kidney disease, or unspecified chronic kidney disease; E87.1 Hypo-osmolality and hyponatremia; J44.1 Chronic obstructive pulmonary disease with (acute) exacerbation; N17.9 Acute kidney failure, unspecified; I27.20 Pulmonary hypertension, unspecified; E11.22 Type 2 diabetes mellitus with diabetic chronic kidney disease; N18.30 Chronic kidney disease, stage 3 unspecified; F03.90 Unspecified dementia, unspecified severity, without behavioral disturbance, psychotic disturbance, mood disturbance, and anxiety; J43.9 Emphysema, unspecified; I25.10 Atherosclerotic heart disease of native coronary artery without angina pectoris; E78.2 Mixed hyperlipidemia; I25.5 Ischemic cardiomyopathy; K21.9 Gastro-esophageal reflux disease without esophagitis; K86.89 Other specified diseases of pancreas; R13.19 Other dysphagia; R29.6 Repeated falls; R53.81 Other malaise; Z68.28 Body mass index [BMI] 28.0-28.9, adult; Z95.5 Presence of coronary angioplasty implant and graft; Z91.198 Patient's noncompliance with other medical treatment and regimen for other reason; Z99.81 Dependence on supplemental oxygen; Z79.51 Long term (current) use of inhaled steroids; Z79.84 Long term (current) use of oral hypoglycemic drugs; Z79.899 Other long term (current) drug therapy; Z87.891 Personal history of nicotine dependence
CPT/HCPCS: 36415; 36600; 71046; 71275; 74230; 80048; 80053; 81001; 82533; 82803; 83605; 83735; 83930; 83935; 84100; 84300; 84439; 84443; 84481; 84484; 85025; 85610; 85730; 87040; 87070; 87086; 87088; 87205; 87449; 87631; 92526; 92610; 92611; 93005; 94640; 94644; 94660; 94668; 94762; 97116; 97162; 97165; 97530; 97802; 97803; 99284; Q9967; A4216; J0834; J1938; J2405